=== PATIENT | female | born 2005 | race Caucasian/White ===

== ENCOUNTER 2023-01-18 17:26 | Emergency (ER) | payer OTHER, SELFPAY ==
[2023-01-18 17:30] VITALS: BP 105/56; PULSE 82; RESP 20; TEMP 36.9; O2SAT 97; BMI 29.1
--- NOTE | 2023-01-18 17:42 | ED.GENADUL1 ---
HPI - General Adult General Chief complaint: Upper Respiratory Infection Stated complaint: UPPER RESPIRATORY INFECTION Time Seen by Provider: 01/18/23 17:30 Source: patient Limitations: no limitations History of Present Illness HPI narrative: 17-year-old female presents for sore throat. She is worried about having strep. It started today. She's had a slight cough and has no concern for Covid. No fever or vomiting. It hurts more when she swallows. Related Data Home Medications Medication Instructions Recorded Confirmed cholecalciferol (vitamin D3) 1,250 50,000 unit PO QWEEK 01/18/23 01/18/23 mcg (50,000 unit) capsule escitalopram oxalate 10 mg tablet 10 mg PO DAILY 01/18/23 01/18/23 Allergies Allergy/AdvReac Type Severity Reaction Status Date / Time No Known Drug Allergies Allergy Verified 01/18/23 17:29 Review of Systems ROS Narrative A ten point review of systems is negative except as noted above. Exam Narrative Exam Narrative: Nurses note and vital signs reviewed and patient is not hypoxic. General: The patient appears well and in no apparent distress. Patient is resting comfortably on cart. Skin: Warm, dry, no pallor noted. There is no rash noted. Head: Normocephalic, atraumatic Eye: Normal conjunctiva, no drainage Ears, Nose, Mouth, and Throat: oral mucosa is moist. Nares patent. no pharyngeal erythema or exudate, no cervical adenopathy Cardiovascular: Regular Rate and Rhythm Respiratory: Patient is in no distress, no accessory muscle use, lungs are clear to auscultation, no wheezing, rales or rhonchi Back: non-tender GI: soft and nontender Musculoskeletal: The patient has no evidence of calf tenderness, no pitting edema, symmetrical pulses noted bilaterally Neurological: A&O, normal speech Psychiatric: Cooperative Constitutional Vital Signs, click to edit/add: Last Vital Signs Temp 98.5 F 01/18/23 17:30 Pulse 82 01/18/23 17:30 Resp 20 01/18/23 17:30 BP 105/56 01/18/23 17:30 Pulse Ox 97 01/18/23 17:30 O2 Del Method Room Air 01/18/23 17:30 Course Vital Signs Vital signs: Vital Signs Temperature 98.5 F 01/18/23 17:30 Pulse Rate 82 01/18/23 17:30 Respiratory Rate 20 10/05/23 17:30 Blood Pressure 105/56 01/18/23 17:30 Pulse Oximetry 97 01/18/23 17:30 Oxygen Delivery Method Room Air 01/18/23 17:30 Temperature 98.5 F 01/18/23 17:30 Pulse Rate 82 01/18/23 17:30 Respiratory Rate 20 01/18/23 17:30 Blood Pressure 105/56 01/18/23 17:30 Pulse Oximetry 97 01/18/23 17:30 Oxygen Delivery Method Room Air 01/18/23 17:30 Medical Decision Making MDM Narrative Medical decision making narrative: Strep test is negative. Antibiotic not indicated. Findings are discussed with the patient. Differential Diagnosis Differential Diagnosis: strep throat, peritonsillar abscess, viral pharyngitis Lab Data Lab results reviewed: Yes I reviewed the patient's lab results Labs: Lab Results 01/18/23 Range/Units 17:35 Streptococcus Screen Negative Discharge Plan Discharge Chief Complaint: Upper Respiratory Infection Clinical Impression: Acute viral pharyngitis Patient Disposition: Home, Self-Care Time of Disposition Decision: 17:59 Condition: Good Mode of Transportation: Private Vehicle Prescriptions / Home Meds: No Action escitalopram oxalate 10 mg tablet 10 mg PO DAILY cholecalciferol (vitamin D3) 1,250 mcg (50,000 unit) capsule 50,000 unit PO QWEEK Instructions: Pharyngitis (ED) Stand Alone Forms: Portal Instructions Referrals: Physician,Non-Staff, MD [Primary Care Provider] - 1 week
[2023-01-18 17:46] LABS: Internal Control Within Normal Limits; Strep A Antigen Screen Negative
== END 2023-01-18 18:03 | disposition home or self-care (01) ==
PROVIDERS: Emergency Provider Emergency Medicine
DX: J02.9 Acute pharyngitis, unspecified (principal)
CPT/HCPCS: 87070; 87880; 99283

== ENCOUNTER 2023-02-02 14:35 | Emergency (ER) | payer OTHER, SELFPAY ==
[2023-02-02 14:42] VITALS: BP 139/88; PULSE 83; RESP 18; TEMP 37.2; O2SAT 99; BMI 29.3
[2023-02-02 15:02] LABS: Bilirubin Urine SMALL (NEGATIVE); Blood Urine LARGE (NEGATIVE); Clarity Urine CLEAR (CLEAR); Color Urine YELLOW (YELLOW); Glucose Urine UA NEGATIVE (NEGATIVE); Ketones Urine NEGATIVE (NEGATIVE); Leukocyte Esterase Urine TRACE (NEGATIVE); Nitrite Urine NEGATIVE (NEGATIVE); Protein Urine TRACE mg/dL (NEG/TRACE); Specific Gravity Urine >=1.030 (1.005-1.025); Urobilinogen Urine 0.2 EU/dL (0.2-1.0); pH Urine 5.5 (5.0-9.0)
[2023-02-02 15:04] LABS: Urine Microscopic Indicated YES
--- NOTE | 2023-02-02 15:04 | ED_ITS ---
Documented by User: NEO De La O 02/02/23 16:15 HPI - General Adult General Chief complaint: Nausea/Vomiting/Diarrhea Stated complaint: ABDOMINAL PAIN/NAUSEA Time Seen by Provider: 02/02/23 14:54 Source: patient Mode of arrival: walk-in History of Present Illness HPI narrative: patient is a 17-year-old female presents to the Emergency Room with concerns of pelvic cramping, vaginal bleeding and nausea vomiting and diarrhea. Patient states last night she started her period with heavy bleeding and pelvic cramps. Patient noted pain was severe yesterday evening. Today she has had multiple bouts of diarrhea, with several episodes of vomiting. Patient denies eating any bad food. States abdominal pain is low in the pelvis. She denies any fever. Patient states her periods are irregular usually every 4-6 months. Her last menstrual cycle was December 27, patient states it is unusual that her period has returned so quickly. See essentially active with one partner but has no concerns of STD. She denies any vaginal discharge or dyspareunia. She denies dysuria. patient reports changing three tampons within one hour with onset of bleeding, had sees pads previously now has been wearing tampon for several hours without increased bleeding Location: Reports pelvis Radiation: Reports non-radiation Severity: moderate Related Data Home Medications Medication Instructions Recorded Confirmed cholecalciferol (vitamin D3) 1,250 50,000 unit PO QWEEK 01/18/23 02/02/23 mcg (50,000 unit) capsule escitalopram oxalate 10 mg tablet 20 mg PO DAILY 01/18/23 02/02/23 Previous Rx's Medication Instructions Recorded ibuprofen 600 mg tablet 600 mg PO TID PRN pain #30 tabs 02/02/23 ondansetron HCl 4 mg tablet 4 mg PO Q6H PRN nausea and 02/02/23 vomiting #12 tabs Allergies Allergy/AdvReac Type Severity Reaction Status Date / Time No Known Drug Allergies Allergy Verified 01/18/23 17:29 Review of Systems ROS Constitutional Denies: fever or chills Eyes Denies: change in vision Ears, nose, mouth, and throat Denies: throat pain, neck pain or throat swelling Cardiovascular Denies: chest pain, palpitations, edema or swelling of feet/ankles Respiratory Denies: shortness of breath, cough, wheezing or stridor Gastrointestinal Reports: abdominal pain, nausea and vomiting Genitourinary Reports: pelvic pain, painful menstruation, vaginal bleeding, irregular period and change in menstrual flow; Denies: painful urination, urinary frequency or vaginal discharge Musculoskeletal Denies: back pain Integumentary/Breast Denies: rash or itching Neurological Denies: headache or numbness in extremities Psychiatric Denies: anxiety Hematologic/Lymphatic Denies: easy bruising Allergic/Immunologic Denies: hives PFSH PFSH Social History Smoking status: Current every day smoker Exam Narrative Exam Narrative: Nurses notes and vital signs reviewed and patient is not hypoxic. General: The patient appears well and in no apparent distress. Patient is resting comfortably on cart.patient speaking easily at the bedside. Skin: Warm, dry, no pallor noted. Head: Normocephalic, atraumatic Neck: Supple, trachea mid-line, no tenderness, no lymphadenopathy Eye: Pupils are equal, round and reactive to light, EOMI Ears, Nose, Mouth, and Throat: TM are clear, normal light reflex, oral mucosa is moist, no posterior oropharynx erythema or hypertrophy, uvula is mid-line Cardiovascular: Regular Rate and Rhythm Respiratory: Patient is in no distress, no accessory muscle use, lungs are clear to auscultation, no wheezing, rales or rhonchi. Chest Wall: no tenderness Back: non-tender, no CVA tenderness Musculoskeletal: normal ROM, no tenderness, no swelling GI: Normal bowel sounds, no tenderness to palpation,minimal soreness suprapubic, no masses appreciated. No rebound, guarding, or rigidity noted.abdomen appears nonsurgical. Neurological: A&O x4 Psychiatric: Cooperative Constitutional Vital Signs, click to edit/add: Last Vital Signs Temp 99.0 F 02/02/23 14:42 Pulse 83 02/02/23 14:42 Resp 18 02/02/23 14:42 BP 139/88 02/02/23 14:42 Pulse Ox 99 02/02/23 14:42 O2 Del Method Room Air 02/02/23 14:42 Course Vital Signs Vital signs: Vital Signs Temperature 99.0 F 02/02/23 14:42 Pulse Rate 83 02/02/23 14:42 Respiratory Rate 18 02/02/23 14:42 Blood Pressure 139/88 02/02/23 14:42 Pulse Oximetry 99 02/02/23 14:42 Oxygen Delivery Method Room Air 02/02/23 14:42 Temperature 99.0 F 02/02/23 14:42 Pulse Rate 83 02/02/23 14:42 Respiratory Rate 18 02/02/23 14:42 Blood Pressure 139/88 02/02/23 14:42 Pulse Oximetry 99 02/02/23 14:42 Oxygen Delivery Method Room Air 02/02/23 14:42 Medical Decision Making MDM Narrative Medical decision making narrative: issue with irregular periods, possible menorrhagia. Discussed coexisting nausea vomiting and diarrhea that started abruptly last night into the morning. She'll be given Zofran IV fluid bolus. Toradol for pain. Patient agreeable to laboratory studies. We'll reassess pending laboratory studies. Her abdomen appears nonsurgical. patient reevaluated, noted significant improvement in symptoms, she denies any nausea or vomiting. she has not had diarrhea during her visit. We discussed vaginal bleeding and if she achieves three pads an hoour for three hours straight she'll return to the Emergency Room. Patient has a history of irregular periods that are painful with heavy flow. She is strongly encouraged to follow- up with [facility] to discuss possible treatment options. Recommend Motrin and Zofran in the near future. She'll return to the Emergency Room if symptoms worsen or new symptoms develop. Abdomen was reexamined and is nonsurgical. No tenderness on palpation The patient is to followup with primary care physician/ obgyn in next 2-3 days or to return to the emergency department should any of the signs or symptoms worsen or new symptoms develop. Patient had questions answered. The patient agrees with the following Diagnosis and Treatment plan and the patient will be discharged home. Lab Data Labs: Lab Results 02/02/23 02/02/23 Range/Units 14:49 15:15 WBC 8.4 (4.0-11.0) 10^3/uL RBC 3.96 L (4.20-5.40) 10^6/uL Hgb 12.7 (12.0-16.0) g/dL Hct 36.2 (36.0-48.0) % MCV 91.4 (81.0-99.0) fL MCH 32.1 (26.7-34.0) pg MCHC 35.1 (29.9-35.2) g/dL RDW 12.2 (11.0-15.0) % Plt Count 261 (150-450) 10^3/uL MPV 10.1 (9.5-13.5) fL Neut % (Auto) 68.6 (43.0-75.0) % Lymph % (Auto) 21.1 (20.5-60.0) % [place] % (Auto) 8.7 (1.7-12.0) % Eos % (Auto) 1.4 (0.9-7.0) % Baso % (Auto) 0.1 L (0.2-2.0) % Neut # (Auto) 5.7 (1.4-6.5) 10^3/uL Lymph # (Auto) 1.8 (1.2-3.8) 10^3/uL [place] # (Auto) 0.7 (0.3-0.8) 10^3/uL Eos # (Auto) 0.1 (0.0-0.7) 10^3/uL Baso # (Auto) 0.0 (0.0-0.1) 10^3/uL Abs Immat Gran (auto) 0.01 (0.00-0.03) 10^3/uL Imm/Tot Granulo (auto) 0.1 (0.0-0.5) % Sodium 138 (136-145) mmol/L Potassium 3.7 (3.5-5.1) mmol/L Chloride 104 (98-107) mmol/L Carbon Dioxide 26.4 (21.0-32.0) mmol/L Anion Gap 11.3 BUN 9.0 (6.4-19.3) mg/dL Creatinine 0.71 (0.55-1.02) mg/dL Est GFR ( Amer) >60 (>=60) Est GFR (Non-Af Amer) >60 (>=60) BUN/Creatinine Ratio 12.7 Glucose 88 (74-106) mg/dL Calcium 8.8 (8.5-10.1) mg/dL Total Bilirubin 0.5 (0.2-1.0) mg/dL AST 23 (15-37) U/L ALT 18 (14-59) U/L Alkaline Phosphatase 49 (46-116) U/L Total Protein 7.2 (6.4-8.2) g/dL Albumin 3.8 (3.4-5.0) g/dL Globulin 3.4 g/dL Albumin/Globulin Ratio 1.1 Lipase 25.0 (16.0-77.0) U/L Serum HCG, Qual Negative (NEGATIVE) Urine Color Yellow (YELLOW) Urine Clarity Clear (CLEAR) Urine pH 5.5 (5.0-9.0) Ur Specific [place] >=1.030 A (1.005-1.025) Urine Protein Trace (NEG/TRACE) mg/dL Urine Glucose (UA) Negative (NEGATIVE) mg/dL Urine Ketones Negative (NEGATIVE) mg/dL Urine Occult Blood Large A (NEGATIVE) Urine Nitrite Negative (NEGATIVE) Urine Bilirubin Small A (NEGATIVE) Urine Urobilinogen 0.2 (0.2-1.0) EU/dL Ur Leukocyte Esterase Trace A (NEGATIVE) Urine RBC 5-10 A (0-2) #/HPF Urine WBC 0-2 A (NONE SEEN) #/HPF Ur Squamous Epith Cells Many A (NONE/RARE) #/LPF Urine Crystals None seen (None Seen) #/HPF Urine Bacteria Small A (NONE SEEN) #/HPF Urine Casts None seen (NONE SEEN) #/LPF Urine Mucus None seen (NONE SEEN) Ur Culture Indicated? Yes Will pend urine culture likely contaminated Discharge Plan Discharge Chief Complaint: Nausea/Vomiting/Diarrhea Clinical Impression: Menorrhagia with irregular cycle, Diarrhea, Nausea and vomiting, Abdominal pain Patient Disposition: Home, Self-Care Time of Disposition Decision: 16:12 Condition: Good Prescriptions / Home Meds: New ondansetron HCl 4 mg tablet 4 mg PO Q6H PRN (Reason: nausea and vomiting) Qty: 12 0RF ibuprofen 600 mg tablet 600 mg PO TID PRN (Reason: pain) Qty: 30 0RF No Action escitalopram oxalate 10 mg tablet 20 mg PO DAILY cholecalciferol (vitamin D3) 1,250 mcg (50,000 unit) capsule 50,000 unit PO QWEEK Hold Instructions: DC Instructions: Acute Nausea and Vomiting (DC), Menorrhagia (ED) Stand Alone Forms: Portal Instructions Referrals: Luis Felipe Sandhu DO [Physician] - As soon as possible Shaikh Benites MD [Physician] - As soon as possible Discharge Date/Time: 02/02/23 16:30 Documented by User: Nba Alvarez MD 02/02/23 18:42 HPI - General Adult General Chief complaint: Nausea/Vomiting/Diarrhea Stated complaint: ABDOMINAL PAIN/NAUSEA Time Seen by Provider: 02/02/23 14:54 Related Data Home Medications Medication Instructions Recorded Confirmed cholecalciferol (vitamin D3) 1,250 50,000 unit PO QWEEK 01/18/23 02/02/23 mcg (50,000 unit) capsule escitalopram oxalate 10 mg tablet 20 mg PO DAILY 01/18/23 02/02/23 Previous Rx's Medication Instructions Recorded ibuprofen 600 mg tablet 600 mg PO TID PRN pain #30 tabs 02/02/23 ondansetron HCl 4 mg tablet 4 mg PO Q6H PRN nausea and 02/02/23 vomiting #12 tabs Allergies Allergy/AdvReac Type Severity Reaction Status Date / Time No Known Drug Allergies Allergy Verified 01/18/23 17:29 PFSH PFSH Social History Smoking status: Current every day smoker Exam Constitutional Vital Signs, click to edit/add: Last Vital Signs Temp 99.0 F 02/02/23 14:42 Pulse 83 02/02/23 14:42 Resp 18 02/02/23 14:42 BP 139/88 02/02/23 14:42 Pulse Ox 99 02/02/23 14:42 O2 Del Method Room Air 02/02/23 14:42 Course Vital Signs Vital signs: Vital Signs Temperature 99.0 F 02/02/23 14:42 Pulse Rate 83 02/02/23 14:42 Respiratory Rate 18 02/02/23 14:42 Blood Pressure 139/88 02/02/23 14:42 Pulse Oximetry 99 02/02/23 14:42 Oxygen Delivery Method Room Air 02/02/23 14:42 Temperature 99.0 F 02/02/23 14:42 Pulse Rate 83 02/02/23 14:42 Respiratory Rate 18 02/02/23 14:42 Blood Pressure 139/88 02/02/23 14:42 Pulse Oximetry 99 02/02/23 14:42 Oxygen Delivery Method Room Air 02/02/23 14:42 Medical Decision Making MDM Narrative Medical decision making narrative: issue with irregular periods, possible menorrhagia. Discussed coexisting nausea vomiting and diarrhea that started abruptly last night into the morning. She'll be given Zofran IV fluid bolus. Toradol for pain. Patient agreeable to l aboratory studies. We'll reassess pending laboratory studies. Her abdomen appears nonsurgical. patient reevaluated, noted significant improvement in symptoms, she denies any nausea or vomiting. she has not had diarrhea during her visit. We discussed vaginal bleeding and if she achieves three pads an hour for three hours straight she'll return to the Emergency Room. Patient has a history of irregular periods that are painful with heavy flow. She is strongly encouraged to follow-up with [facility] [facility] to discuss possible treatment options. Recommend Motrin and Zofran in the near future. She'll return to the Emergency Room if symptoms worsen or new symptoms develop. Abdomen was reexamined and is nonsurgical. No tenderness on palpation The patient is to followup with primary care physician/ obgyn in next 2-3 days or to return to the emergency department should any of the signs or symptoms worsen or new symptoms develop. Patient had questions answered. The patient agrees with the following Diagnosis and Treatment plan and the patient will be discharged home. I, Dr Alvarez, have reviewed the above progress note and course of action in the ER; agree with the above. I have personally seen and evaluated this patient, gone over history and physical, and discussed disposition and treatment plan with the patient. Lab Data Labs: Lab Results 02/02/23 02/02/23 Range/Units 14:49 15:15 WBC 8.4 (4.0-11.0) 10^3/uL RBC 3.96 L (4.20-5.40) 10^6/uL Hgb 12.7 (12.0-16.0) g/dL Hct 36.2 (36.0-48.0) % MCV 91.4 (81.0-99.0) fL MCH 32.1 (26.7-34.0) pg MCHC 35.1 (29.9-35.2) g/dL RDW 12.2 (11.0-15.0) % Plt Count 261 (150-450) 10^3/uL MPV 10.1 (9.5-13.5) fL Neut % (Auto) 68.6 (43.0-75.0) % Lymph % (Auto) 21.1 (20.5-60.0) % [place] % (Auto) 8.7 (1.7-12.0) % Eos % (Auto) 1.4 (0.9-7.0) % Baso % (Auto) 0.1 L (0.2-2.0) % Neut # (Auto) 5.7 (1.4-6.5) 10^3/uL Lymph # (Auto) 1.8 (1.2-3.8) 10^3/uL [place] # (Auto) 0.7 (0.3-0.8) 10^3/uL Eos # (Auto) 0.1 (0.0-0.7) 10^3/uL Baso # (Auto) 0.0 (0.0-0.1) 10^3/uL Abs Immat Gran (auto) 0.01 (0.00-0.03) 10^3/uL Imm/Tot Granulo (auto) 0.1 (0.0-0.5) % Sodium 138 (136-145) mmol/L Potassium 3.7 (3.5-5.1) mmol/L Chloride 104 (98-107) mmol/L Carbon Dioxide 26.4 (21.0-32.0) mmol/L Anion Gap 11.3 BUN 9.0 (6.4-19.3) mg/dL Creatinine 0.71 (0.55-1.02) mg/dL Est GFR ( Amer) >60 (>=60) Est GFR (Non-Af Amer) >60 (>=60) BUN/Creatinine Ratio 12.7 Glucose 88 (74-106) mg/dL Calcium 8.8 (8.5-10.1) mg/dL Total Bilirubin 0.5 (0.2-1.0) mg/dL AST 23 (15-37) U/L ALT 18 (14-59) U/L Alkaline Phosphatase 49 (46-116) U/L Total Protein 7.2 (6.4-8.2) g/dL Albumin 3.8 (3.4-5.0) g/dL Globulin 3.4 g/dL Albumin/Globulin Ratio 1.1 Lipase 25.0 (16.0-77.0) U/L Serum HCG, Qual Negative (NEGATIVE) Urine Color Yellow (YELLOW) Urine Clarity Clear (CLEAR) Urine pH 5.5 (5.0-9.0) Ur Specific [place] >=1.030 A (1.005-1.025) Urine Protein Trace (NEG/TRACE) mg/dL Urine Glucose (UA) Negative (NEGATIVE) mg/dL Urine Ketones Negative (NEGATIVE) mg/dL Urine Occult Blood Large A (NEGATIVE) Urine Nitrite Negative (NEGATIVE) Urine Bilirubin Small A (NEGATIVE) Urine Urobilinogen 0.2 (0.2-1.0) EU/dL Ur Leukocyte Esterase Trace A (NEGATIVE) Urine RBC 5-10 A (0-2) #/HPF Urine WBC 0-2 A (NONE SEEN) #/HPF Ur Squamous Epith Cells Many A (NONE/RARE) #/LPF Urine Crystals None seen (None Seen) #/HPF Urine Bacteria Small A (NONE SEEN) #/HPF Urine Casts None seen (NONE SEEN) #/LPF Urine Mucus None seen (NONE SEEN) Ur Culture Indicated? Yes Discharge Plan Discharge Chief Complaint: Nausea/Vomiting/Diarrhea Clinical Impression: Menorrhagia with irregular cycle, Diarrhea, Nausea and vomiting, Abdominal pain Patient Disposition: Home, Self-Care Time of Disposition Decision: 16:12 Condition: Good Prescriptions / Home Meds: New ondansetron HCl 4 mg tablet 4 mg PO Q6H PRN (Reason: nausea and vomiting) Qty: 12 0RF ibuprofen 600 mg tablet 600 mg PO TID PRN (Reason: pain) Qty: 30 0RF No Action escitalopram oxalate 10 mg tablet 20 mg PO DAILY cholecalciferol (vitamin D3) 1,250 mcg (50,000 unit) capsule 50,000 unit PO QWEEK Hold Instructions: DC Instructions: Acute Nausea and Vomiting (DC), Menorrhagia (ED) Stand Alone Forms: Portal Instructions Referrals: Luis Felipe Sandhu DO [Physician] - As soon as possible Shaikh Benites MD [Physician] - As soon as possible Discharge Date/Time: 02/02/23 16:30
[2023-02-02 15:15] LABS: WBC Urine 0-2 #/HPF (NONE SEEN)
[2023-02-02 15:16] LABS: Bacteria Urine SMALL #/HPF (NONE SEEN); Cast Seen? NONE SEEN #/LPF (NONE SEEN); Crystals Seen? None Seen #/HPF (None Seen); Mucus Urine NONE SEEN (NONE SEEN); Squamous Epithelial Cell Urine MANY #/LPF (NONE/RARE); Urine Culture Indicated YES
[2023-02-02] MEDS: 0.9 % SODIUM CHLORIDE 1,000 ML 999 ML IV (15:17)
[2023-02-02] MEDS: KETOROLAC TROMETHAMINE 30 MG/ML VIAL IVP (15:17)
[2023-02-02] MEDS: ONDANSETRON PF 4 MG/2 ML VIAL IV (15:17)
[2023-02-02 15:20] LABS: Basophils Percent Auto 0.1 % (0.2-2.0); Eosinophils Absolute Auto 0.1 10^3/uL (0.0-0.7); Eosinophils Percent Auto 1.4 % (0.9-7.0); Hematocrit 36.2 % (36.0-48.0); Hemoglobin 12.7 g/dL (12.0-16.0); Immature Granulocytes Abs Auto 0.01 10^3/uL (0.00-0.03); Immature Granulocytes Pct Auto 0.1 % (0.0-0.5); Lymphocytes Absolute Auto 1.8 10^3/uL (1.2-3.8); Lymphocytes Percent Auto 21.1 % (20.5-60.0); Mean Corpuscular HGB Conc 35.1 g/dL (29.9-35.2); Mean Corpuscular Hemoglobin 32.1 pg (26.7-34.0); Mean Corpuscular Volume 91.4 fL (81.0-99.0); Mean Platelet Volume 10.1 fL (9.5-13.5); Monocytes Absolute Auto 0.7 10^3/uL (0.3-0.8); Monocytes Percent Auto 8.7 % (1.7-12.0); Neutrophils Absolute Auto 5.7 10^3/uL (1.4-6.5); Neutrophils Percent Auto 68.6 % (43.0-75.0); Platelet Count 261 10^3/uL (150-450); Red Blood Count 3.96 10^6/uL (4.20-5.40); Red Cell Distribution Width 12.2 % (11.0-15.0); White Blood Count 8.4 10^3/uL (4.0-11.0)
[2023-02-02 15:35] LABS: HCG Qualitative NEGATIVE (NEGATIVE)
[2023-02-02 15:39] LABS: Alanine Aminotransferase 18 U/L (14-59); Albumin Globulin Ratio 1.1; Albumin Level 3.8 g/dL (3.4-5.0); Alkaline Phosphatase 49 U/L (46-116); Anion Gap 11.3; Aspartate Amino Transferase 23 U/L (15-37); BUN Creatinine Ratio 12.7; Bilirubin Total 0.5 mg/dL (0.2-1.0); Calcium 8.8 mg/dL (8.5-10.1); Carbon Dioxide 26.4 mmol/L (21.0-32.0); Chloride 104 mmol/L (98-107); Estimated GFR (African America >60 (>=60); Estimated GFR (Non-African Ame >60 (>=60); Globulin 3.4 g/dL; Glucose 88 mg/dL (74-106); Potassium 3.7 mmol/L (3.5-5.1); Sodium 138 mmol/L (136-145); Total Protein 7.2 g/dL (6.4-8.2)
== END 2023-02-02 16:30 | disposition home or self-care (01) ==
PROVIDERS: Personal Emergency Response Attendant; Emergency Provider Emergency Medicine
DX: R10.9 Unspecified abdominal pain (principal); R11.2 Nausea with vomiting, unspecified; R19.7 Diarrhea, unspecified; N92.1 Excessive and frequent menstruation with irregular cycle; Z79.899 Other long term (current) drug therapy; F17.210 Nicotine dependence, cigarettes, uncomplicated
CPT/HCPCS: 36415; 80053; 81001; 83690; 84703; 85025; 87086; 96361; 96374; 96375; 99284

== ENCOUNTER 2023-06-01 11:40 | Emergency (ER) | payer OTHER, SELFPAY ==
[2023-06-01 11:51] VITALS: BP 122/82; PULSE 96; RESP 18; TEMP 36.7; O2SAT 100; BMI 30.5
--- OUTSIDE RECORDS SUMMARY | 2023-06-01 11:58 | XMS_ITS | CCD ---
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 with the remainder of the cultures pending. We did offer empiric treatment she declined I think this is reasonable as we will call her with any positive culture results. She is discharged home to follow-up educated on abstinence until the infection clears and continuing the antibiotics until completion. She is comfortable with this plan. I, Dr. Leahy had a mxgh-ea-ikto interaction with the patient. I personally performed a physical exam and medical decision making. I have verified the documentation by the student as accurately representing the information obtained. Shared decision making: Code status: Assessment/Plan Cervicitis (N72: Inflammatory disease of cervix uteri) Exposure to chlamydia (Z20.2: Contact with and (suspected) exposure to infections with a predominantly sexual mode of transmission) Orders: doxycycline, 100 mg = 1 tab(s), Oral, BID, X 10 day(s), # 20 tab(s), Refills(s) 0, Pharmacy: [id number], 168, cm, 10/03/22 14:11:00 EDT, Height/Length Dosing, 76, kg, 10/03/22 14:11:00 EDT, Weight Dosing Chlamydia/Gonococcus, ANUP U Beta Hcg Qual UA With Cult Reflex Urine Culture Disposition Plan Discharge Prescription List Prescriptions doxycycline monohydrate 100 mg oral tablet, 100 mg= 1 tab(s), Oral, BID Follow-up With When Contact Information Kevin Buckner In 3 days 10/06/[address], [address] [place] [address]- Business (1) Additional Instructions: LATISHA SEE In 3 days [address] [place] [address] Business (1) Additional Instructions: Problem List/Past Medical History Ongoing No qualifying data Historical No qualifying data Procedure/Surgical History none. Medications Inpatient No active inpatient medications Home Bromfed DM oral syrup, 5 mL, Oral, QID, PRN Allergies No Known Allergies Social History Alcohol - Denies Alcohol Use, 04/11/2022 1-2 times per week, 10/03/2022 Substance Abuse - Denies Substance Abuse, 04/11/2022 Tobacco - High Risk, 04/11/2022 Current vaping or e-cigarette use Smokeless Tobacco Use:., 10/03/2022 Lab Results UA Spec Desc: Clean Catch (10/03/22 14:58:00) UA Color: Yellow2 (10/03/22 14:58:00) UA Clarity: Clear2 (10/03/22 14:58:00) UA Spec Grav: 1.020 (10/03/22 14:58:00) UA pH: 7.0 (10/03/22 14:58:00) UA Protein: NEGATIVE1 (10/03/22 14:58:00) UA Glucose: NEGATIVE1 (10/03/22 14:58:00) UA Ketones: NEGATIVE1 (10/03/22 1 (more content not included)... Normal [facility] Comment on above: Result Comment: Elec tronically Signed By: Aicha Burris\.br\Date and Time Signed: 10/03/22 14:53 EDT\.br\Electronically Co-Signed By: Guillermo Leahy DO\.br\Date and Time Co-Signed: 10/03/22 15:45 EDT ED Patient Education Noteon 10-03-2022 ED Patient Education Note Normal [facility] ED Patient Summaryon 023 ED Patient Summary [place] [id number] Patient Discharge Instructions Person Information Name: LENY GALVEZ Age: 17 Years Arrival Date: 10/03/2022 14:06:21 Discharge Diagnosis: Cervicitis; Exposure to chlamydia Primary Care Physician: LATISHA SEE MD Provider Information Primary Provider: Guillermo Leahy DO Advanced Services Clerk:None The exam and treatment you received in the Emergency Department were for an urgent problem and are not intended as complete care. It is important that you follow up with a doctor, nurse practitioner, or physician?s assistant director of admissions for ongoing care. If your symptoms become worse or you do not improve as expected and you are unable to reach your usual health care provider, you should return to the Emergency Department. We are available 24 hours a day. LENY GALVEZ has been given the following list of patient education materials, prescriptions and follow-up instructions: Follow-up Instructions: With: Address: When: Kevin Dudley [address], [address], [facility] [place] [address] Business (1) In 3 days 10/06/2022 With: Address: When: LATISHA SEE [address] [place], [place] [id number] Business (1) In 3 days In the event that this physician does not participate in your insurance network, please consult with your insurance company to find a nearby participating provider. Patient Education Materials: A MESSAGE TO ALL PATIENTS REGARDING OPIOIDS PRESCRIPTION OPIOIDS: WHAT YOU NEED TO KNOW Prescription opioids can be used to help relieve lzmiftej-me-xqmtif pain and are often prescribed following a surgery or injury, or for certain health conditions. These medications can be an important part of the treatment but also come with serious risks. It is important to work with your healthcare provider to make sure you are getting the safest, most effective care. WHAT ARE THE RISKS AND SIDE EFFECTS OF OPIOID USE? Prescription opioids carry serious risks of addiction and overdose, especially with prolonged use. An opioid overdose, often marked by slowed breathing, can cause sudden . The use of prescription opioids can have a number of side effects as well, even when taken as directed: ? Tolerance?meaning you might need to take more of the medication for the same pain relief ? Physical dependence?meaning you have symptoms of withdrawal when a medication is stopped ? Increased sensitivity to pain ? Constipation ? Nausea, vomiting, and dry mouth ? Sleepiness and dizziness ? Confusion ? Depression ? Low levels of testosterone that can result in lower sex drive, energy, and strength ? Itching and sweating RISKS ARE GREATER WITH: ? History of drug misuse, substance use disorder, or overdose ? Mental health conditions (such as depression or anxiety) ? Sleep apnea ? Older age (65 years and older) ? Avoid alcohol while taking prescription opioids. Also, unless specifically advised by your health care provider, medications to avoid include: ? Benzodiazepines (such as Xanax or Valium) ? Muscle relaxants (such as Soma or Flexeril) ? Hypnotics (such as Ambien or Lunesta) ? Other prescription opioids KNOW YOUR OPTIONS Talk to your health care provider about ways to manage your pain that don?t involve prescription opioids. Some of these options may actually work better and have fewer risks and side effects. Options may include: ? Pain relievers such as acetaminophen, ibuprofen, and naproxen ? Some medication that are also used for depression or seizures ? Physical therapy and exercise ? Cognitive behavioral therapy, a psychological, goal-directed approach, in which patients learn how to modify physical, behavioral, and emotional triggers of pain and stress. IF YOU ARE PRESCRIBED OPIOIDS FOR PAIN: ? Never take opioids in greater amounts or more often than prescribed. ? Follow up with your primary health care provider. o Work together to create a plan on how to manage your pain. o Talk about ways to help manage your pain that don?t involve prescription opioids. o Talk about any and all concerns and side effects. ? Help prevent misuse and abuse o Never sell or share prescription opioids. o Never use another person?s prescription opioids. ? Store prescription opioids in a secure place and out of reach of others (this may include visitors, children, friends, and family). ? Safely dispose of unused prescription opioids: Find your community drug take-back program or your pharmacy mail-back program, or flush them down the toilet, following guidance from the Food and Drug Administration (www.fda.gov/Drugs/Re sourcesForYou). ? Visit www.cdc.gov/drugoverd ose to learn about the risks of opioids abuse and overdose. ? If you believe you may be struggling with addiction, tell your health primary care physician (more content not included)... Normal [facility] U BetaHcg Qualon 10-03-2022 HCG.beta subunit (U) [Moles/Vol] Negative Normal [facility] Comment on above: Performed By: #### 1 [id number], [id number], [id number], [id number] ####[facility] [address] [place] [address] UA With Cult Reflexon 2022 Bacteria LM Ql (Urine sed) 1+ /HPF Abnormal Trace [facility] Comment on above: Performed By: #### 1 [id number], [id number], 9921782, [id number] ####[facility] [address] [place] [address] Crystals LM Ql (Urine sed) Present Normal [facility] Comment on above: Performed By: #### 1 [id number], [id number], 5717031, [id number] ####[facility] [address] [place] [address] Epithelial cells.squamous LM.HPF (Urine sed) [#/Area] /[HPF] Normal 0-2 [facility] Comment on above: Performed By: #### 1 [id number], [id number], 8522996, 10508926 ####[address] [address] [place].plasma/[place] .RBC (Bld) [Mass ratio] 0-3 Normal 0-3 [facility] Comment on above: Performed By: #### 1 [id number], 44628860, 8618416, 36614578 ####[address] [address] Mucus Ql (Urine sed) 3+ Normal [facility] Comment on above: Performed By: #### 1 [id number], 30504115, 0489774, 37103624 ####[place] [id number] WBC LM.HPF (Urine sed) [#/Area] 6-15 Abnormal 0-5 [facility] Comment on above: Performed By: #### 1 [id number], 25075529, 5082806, 11556830 ####[address] [address] Bilirubin Ql (U) Negative Normal Negative [facility] Comment on above: Performed By: #### 1 [id number], 22848044, 0172843, 14095430 ####[facility] [address] [place] [address] Clarity (U) CLEAR Normal Clear [facility] Comment on above: Performed By: #### 1 [id number], 71521295, 5563232, [id number] ####[address] [address] Color (U) YELLOW Normal Yellow [facility] Comment on above: Performed By: #### 1 53987616, 21464125, 4955810, 75687482 ####[facility] [address] [place] [address] Glucose Test strip (U) [Mass/Vol] Negative Normal Negative [facility] Comment on above: Performed By: #### 1 [id number], 25694803, 6823567, 19032577 ####[address] [address] Hemoglobin Ql (U) Negative Normal Negative [facility] Comment on above: Performed By: #### 1 [id number], 48029885, 5901446, 30448958 ####[address] [address] Ketones (U) [Mass/Vol] Negative Normal Negative [facility] Comment on above: Performed By: #### 1 39569918, 39860893, 1369768, 75861214 ####[address] [address] Nitrite Ql (U) Negative Normal Negative [facility] Comment on above: Performed By: #### 1 [id number], 45200060, 9723484, 46908476 ####[address] [address] pH (U) 7.0 [pH] Invalid Interpretation Code 5.0-9.0 [facility] Comment on above: Performed By: #### 1 [id number], 52408283, 3055283, 85898623 ####[address] [address] Protein (U) [Mass/Vol] Negative Normal Negative [facility] Comment on above: Performed By: #### 1 [id number], 33643211, 1599733, 32414195 ####[address] [address] Specific gravity (U) [Rel density] 1.020 Invalid Interpretation Code 1.005-1.030 [facility] Comment on above: Performed By: #### 1 [id number], 56967794, 3312178, 64491877 ####[facility] [address] [place] [address] Type of Urine collection method Clean Catch Normal [facility] Comment on above: Performed By: #### 1 [id number], 11656694, 7410098, 30531415 ####[facility] [address] [place] [address] Urobilinogen Qn (U) 1.0 {Evens'U}/dL Normal 0.0-1.0 [facility] Comment on above: Performed By: #### 1 19505031, 85967030, 4707134, 20037682 ####[address] [address] WBC Auto Ql (U) TRACE Abnormal Negative [facility] Comment on above: Performed By: #### 1 [id number], 81420753, 5289923, 29995612 ####[place] [address] [place] [address] Coding Summary.on 07-28-2022 Coding Summary. CD:[id number] W w+PGhlYWQ+AT5JZYBhJ34 gbZGajA9lH1YLFXzDBpmu KIDRKDvDZgEszuOfMD7zs XNjZXJu IC8+OH5tHUYgFtrisLCmy 9F1mFQ5U76kwa0xKQdelM T3WKEwBuEtsgvax8folCt 6IDcuNmluOyBt HTExrY30VDO0qB08Qv51n QGjnSHnv5qkoFo2PxDmHO GpTQE4cCzmVNidj6HdITG nI75hpOMer5B0 QYEtgOxieQLnJlLqfGA2p Z7qIYyqflfbs5oablhwWv e9gl89xTZrh8S8bSD1G1H ouoQ0HJMniKUe WaaggKYJqN2qbcpxo2ykl jkpBqLeWGVeBXe9SJd4RM UutBgzOfAfEF53YHQ5ROG qooJoU5NaUOPb dCfuGtB9q1J9Zj6CJ5YYW swuT8WPLULZXAsirOH+PC 01nw52V6VeTpztOus5MMM tLAI1lZW7jZ7c FGAoVMhqz6B1wVN4E2Kob mHcdf3lz7npTPHgZIjaW3 1stGXxr9Y9TJIgzMX7FFE uxUfbUxXliU32 Oyc+MQPciUtdc5JuJyyvh 1eae5nvtEc1SlotXDKole FylLniQHP6n0AvYw2qCBQ kmVK6dWB9aB0a DuKqHmO2HUdcN161KtSvh HKcKjenL67rB8EqaEL+PH XyWog0FLMfyQeoBD9eE5T hZGRpbmctbGVm aSruTJ8eTCRbwtmdCAIwx Y8bNJWeT3n5OlRuAsS1DW vwS2IxRBZzonqmYr95wH4 zLxUiIeV6PGkr W6LhlxI5VFJnbCUfRNsmZ FV7S61fk7I7KKVlRTQnPZ Z6oWN0eP3wxVnptmmhcZA mdDsgdmVydGlj DRamNQatO381FAWvlKgrN kNvZGluZyBEYXRlOiAgMD QvMTQvMjAyMzwvdGQ+PHR sORJ9kMdlWBAe mLQhRNvqEn7mlXczfJjbE Z6jYCQymzzzUJKlwH5gFL FqmHLcqEygFS4uXNMkfdc uh662TaEzENQ9 UFVfrEYfV8KwqG9qIfGwE LOzVEDjO5VbmVCkRMkiF3 66DDixJvA6CJQurkIeY3B sLWFsaWduOiB0 v2H6Ie1Ta8MkmqkeX0Prq IToVoLpJslwIGf5N2BeFi wvdHI+CW35XSQiUK03DBg 2BPX1vAhhABex MUEyJ9TkzA6nEiLzMUHxJ GRkOyc+PHRhYmxlIHdpZH RoPScxMDAlJyBzdHlsZT0 sDp4mHEWaPOMx aPgjoZLtDzMbo9leQANpI GszMO3zhEifO4RxzXN0FO Ooy3a0Xd21T55cE2XwyTD +DOXdbHK6uKD6 nH4oMtDnAzF8XUosG665G mRvtQGsSzdda8jxj4gofH t0SbP0CBUwhwGoyVbxJYB 3h0XrYe09B05e IHdpZHRoPSIxNSUiIHZhb Qpizj0rlO2gNi2+PGNvbC P5nKX9pL9hBqSkKjH2DLg eH932ErNdlMNj Eifqn8hfg8vvoMm9NmCrW RSvheTeiYsbEPX9j0VzAh 54G8MkuDhbl8XdGlv8sr4 3cTWku7Z4eIN7 X4JdWTUwxlqhmRHkmMklQ H8pXIJpubrzNIXkoS7zLO SpG0c7LsEuBkV9SIpfP7G xuzY6XJFjmFUq MRBxyUBTgI1glkgen9zaf najOlQsMCFtCOe7SVl6RT WvcRnmBtOgGGO1NzP9KGR 7oVYbkI9ttBrg aconlR1bXin+CUP5dGAla ZUBCW8vLgotgHS+PHRkIH A7nYtyDFwiYGEtrE7bDRK eX2c4WbPaGfS5 ICnaA2CpqqI2ZVFfzHUmL PDezAMHcA0sdsidf0pxjp woBcKcAHSvVUn8IJq5WTS saWduOiBsZWZ0 DrX7BSU5wNUbtL8rlGess lzkhW6fDsy+QmlydGggRG X5QNd5P5RqUmf4XJDtaDq yAW7llKYfHXyv Dx6qbTqugYkoPV6rURUjo wybf637YjIig2ulNYOkuN WlOEuyKJO9G79nj6S7NAB tTJXfCIS6bBC5 tK5jbCvvbyqakVMovEluw nTopIlqUKeyFJcgN663NP ThlKrgYpDvHXn5J5QyWhu 8SZUvqJpkXD5u yDJaOUokEb9uhGmydClfA L3jGXXmifzrh266HcIsb9 hyFJMtqXAlTDchYQN9B89 uy4H5BHFmXSCg WRJ4aCR1zJ2xkRufiztbb GVmdDsgdmVydGljYWwtYW cpJ759PHJewLenPtYktPa 0A1FvXsy1JZQo vUxjEU0jkAMeASqyWp6sx KegbLxwGQ2vHQRgnubvm2 61SjJwe6vkBNLzoFVwESn qQSM4V83ec8D7 LWDmGXOoKBY6hHE8zM6ku GlnbjogbGVmdDsgdmVydG xnDCnkVHtdR925GMUdyPi nPlBhdGllbnQg TZwwPPj1G1HxXsageYE+P X53DTNcOR52hLGzgDVxr9 cbnPq3MjKwIADxYCM7iJz fRRdmi3KlWIXc S25dkHYuo8I0KLRxbQguv QNqEbKudMU5uV6uRMxqgr php2ozyvrpCyuem8kxjv7 2qK52J36fOUsl ZHRoPSIzMCUiIHZhbGlnb b6nsS9uVn4+GYKhcAO7yI D7iI4bIQNjOdZ6FAzsB28 9InRvcCIvPjxj o3hbu0yvcKa1JcI3EJCed qUmgBoeRWL2r0PfUj08B4 9sIHdpZHRoPSIyMCUiIHZ kwPoqvd4oxC7l Ii8+EUCnzWI3pAG3gF1dD uHkBfL2VAwfG200AqUiyH XxOdzpS52qO9WmnRB+PHR gVmv6QHIlvAuw GY0prNPxWEikXf4xIZC8Z iNdAuJsYMgoA9QcPNFuxc ffesxziQG5PHSgZENkeG3 5Hx3xjAonZHGy kQSItP3weteot3jtsfrjC mMwKOVrTBl9KUg3BIWxkN ouGpKbOKV6YyA2VCO7hEU dfB6atHogkrwa lL7aG7XsAEUzzatsDm24v E7rTcEmTyY6WIqzUqb+V0 hZY88SSYXDRWvDWPCRNL6 5RT21wATsw8U8 yEJ0O3BfSEUwirjoaqhox KZ5OAAqAIJrdD31wQFuTK gkBp0rx7I0f024JSKfVAU cgM76Lu1ynCfo RKYjdIKNuI3czcdqe1lim iaiXnGdSEDwWKm1KXw7IU GfjYpkSvEgQTI4JvY1LLW 5qDHurA9mfFwg fxjrlD5qKeo+MDIvMjYvM jAwNDwvdGQ+BVHvULI0uF otQZivNBUtcZ1dQLWiO7a 4JtCcOaV6YFbx I6LtPFSuvsjhUm42cU1pF sSuWwW3PJqcI2CgxkV9CL LqrHNhOBifJQB0K19xm5A 3NDWbTLZdQRH2 lUN2aH0nqHyrhnxexJCtt DsgdmVydGljYWwtYWxpZ2 11OLOzfNbhQwF4ACfrZPC dNP62JR93xBVx n1Y0aUI2K1WnPHTkopeix qffqWM7DIYdSTTfmZ55lL ZwUUcuUw2ff5O3r550MXG uXRMruA33Ez4r jEzyKSDhxYKTzB0yxllpc 8ctbpshAeIfXZZpYMt4OC f1APZcxNobGaAbHSX8TbT 6FAT2mUKlxD3z nAbswvurwX3wCty+RmVtY AwkNU49QX00bPPdy3T9mS J6L1TjZMDgmbbjxkgxqQT 2OUPwYOBswS26 kFOjHYjwLw4lr6I8x817O DKuANBfoE12Vg2alYbqGN JhtZKBjG2mxswwj9jvlxf gIzAwMDAwMDt0 WWw8OHFluXeiBdOkRQS5B eD7AQZ3wSWffY2yvNpcym qzaR8cInj+F9Q3lTN0lDY udDwvdGQ+PC90 jk95B7KsOeahUzo2CSExP CP1iFV1xL6bBURlAPnzv8 C7nZH2F7OfqxBylk3oa5s hYKQoLTvdG70o vBJic4S3NFFrbIM5AVVfl KfwCgGkzR78Ehk+PGNvbG dqg6MkHipxy1ftw4ictFc 9IjMwJSIgdmFs vAzjABK1d8MyGj46V35hP HdpZHRoPSIzMCUiIHZhbG tepv5mxE2wBf7+PGNvbCB 1hQP3mJ3jLrKq EvS8WWjxZ103MyBtqJGuJ qnjv0pbo3pfpCq5XtBiCW CeyqTcyOapICV0n7YvNb7 9R9QmcQcoh9Bi Szs6gp12dDUyf8E3gPX4G 3BhZGRpbmctbGVmdDogMC 7pFGSohkrmEHQjjL1cDHF sI4g2RfGoCrE2 IZvkA0RbqwC0HFKwfQUqZ SPhjBYYgC9ssajhi9bqin cvXdTeCMWbMZj3OYb4TBC saWduOiBsZWZ0 GqS7PNP8gCZbgP8xmQgth loxjO6jEuw+CHk3g8dzrQ GsUE2hoMB4JM25ZQ38eKK fq1N2aLT2I5Ik PVFjocldbbvpwCU4OWGiR GLboF99Rq5cgTwzXn1dAF BlHPX9LSYcjJAhU9GoaH7 yOiAjMDAwMDAw D0BnzTDjBRljT643OIuyH wQ3PANdkqArU7UbVXZslT wmQgT9l4R0Rm7VMX19IV0 4NA59pDAuk2I1 rCW1A0EaMHOjqarcrzmug ZP9IOWhUJMifF97Gb5ayL jnYr3rIQNnJAW4MGSewED wV5EqzF3tJhCw OAIiUJQlE3BdqXMsUVoeK 743TMbbBqJ3SCJmclQuG5 TlONHhcAxyMrQ1h8I2Id3 EFf03LC42BB61 dPPhg1I9tLG9T5BiMMOjm byxmdartLS7PVJgTBThuI 55Ox5qnEwpXd4yVSQqLCS 5OZCbaFNxM6Cx tQ7mSbPfHJXhQXXwB8Qdg WDiBVrgF191MFecDbD5ZV QkybIzD2IsCGYjfLzjCeW 7v6P9Ou9IZLzy boa6D8PdGiybdRT+PC90Y TTnWK28xBKdgHBwz4gppS f6IoRyQWLpZGM3fUmiQFx pk2YuMLTzT59t jATsa2G9 (more content not included)... Normal [facility] Coding Summary.on 07-27-2022 Coding Summary. CD:[id number] W w+PGhlYWQ+AK8HKXNkC42 lgHMbcM5uE8DBOUkIGoge SIPVREuSEtAfnrVjSN2vy XNjZXJu IC8+WA6gMQYcElgdqMCmr 3M0tSN4K77ofs9wLNgwhT P1OPHiUeMdkiywh5nzoSx 6IDcuNmluOyBt OWWblE85CPS2iK08Qh46y VPexLZik2imgSb8DqJjTW WsFLJ2bNngQXxsg0JjBLA zW34paAIow4Z6 TXDwoCkajPKlMlPzaYJ7c Z0nUWjmdmopd0zghjqgUc q8wa62dVSpb3P8lPR3D6Z rrhK1VRWjuEYe McxalOGUxI3memixn9fsr mzkJaToPOFdNFe1NEl4WA PdvLlqRaIrXZ87WXC4ONQ kgzJdT5DrFGAq vNzwXqT5j7J5Bf4BF8PTA hllA2HEUXUTKBnbkOV+PC 66tz15Q1ZyZqhgOkw1AKY wVFR3gEF2qW2f VEJvIKgyf5G3xJU0C2Idy oWffo5yp7xhUQXlQCkvI3 5mfJBls4N4UMUgfVV9SKY xwTpiPcOltH47 Oyc+DQYoiWvio4EcUomtr 2gme1kzeLb8XunuEVZmfw HxnFbtGVA9y7ViRo8jMWP ilBW5tXP6wH9w KiLgSqI3MWmrJ625JoScq OYyQnsfC05cT8ThyRU+PH PsLrm0NSDtgBzjTF8mM3Z hZGRpbmctbGVm nEviJV7iLEQinltbWJVxa D4zXQIoF8x6HlXiCpQ5TF xvF1ZyEVOymrmvTw46gF6 jQkZzEqN5KOog O0McsnQ5IQIowQKgVSkyE GZ2U80pr7H2QAEwCNWoAW S6pAY7qW8taHiidphctTQ mdDsgdmVydGlj GVeqLKxyK555HTOxhTxxD kNvZGluZyBEYXRlOiAgMD QvMTMvMjAyMzwvdGQ+PHR fWBK6wYbkWFCk dFYaONlyWk4lkAhrxGsgV E0rXYGhiwnoRTSffR7fVM IzbXXepQbgHI0cXGIjeuq lm343XkGuAVV2 AFYbhXKgB9GpbN7jYuViU GSxYCXbY2ZrtMHzGPkiT0 50AIplEaG9WTMhexEzR1K sLWFsaWduOiB0 q3W7Xr4De1RaaxizN9Paa SGaXrGxZwkzDLk5K0SpUr wvdHI+RH29HVEyLY40EVj 7NPD4rIgsRMdi JZZcR7BkoU7eDvKkPUNjS GRkOyc+PHRhYmxlIHdpZH RoPScxMDAlJyBzdHlsZT0 sUu2nYLWeRVQr wEuouPByPnAmj7fnWLIzQ BnzUB3gnJegN5DsvTV0NJ Ixn5h2Rs90G12aM9SxdDX +UXToxXN5rXQ4 dN1iPbGpPmM5GJhlC114P vDkeIPeBuxok1xmq2jxoV j3WpQ9YJFewqBjsTpxLRC 7i2YwBh02E46c IHdpZHRoPSIxNSUiIHZhb Aoeuv1wfY2gQk0+PGNvbC M0eMJ0vW8vWjXfMtZ9QLu xJ564BdHnbJIy Jnsdz1wmw1jdmKb2ZfZpN OJcdoTieKgiSPH3j6LxIr 12B3YveQppd9KzWum9xy8 4wLBay6H5gXL9 M1DoMAReqmzbrGSlzTzkY H5dJDJbtkqsROOqcC0yGB CmR8b4SjRnOmA4YGicE1T cxgQ2UHTofDIl FIShhTXPvL7sbibhj7hjm wvbRdKkADDiHKn7LAi6JE ThtVdqEpKbZBJ0VxO8KMQ 3hXPxaI2ojFql glicpK6sZub+KLP7nGNjt FIUEG5jOwiogAS+PHRkIH W9eNuyBYjsKCZisT8fTFZ mL5u8CaNvGmT8 TKetE4OikiC7RQXahCNgV HSabPWEjL0yczxbj8xlwc bjKePsXUNlCBp5MZq3EFJ saWduOiBsZWZ0 HkQ3SKO7fECujL1foGhbu rfqiJ3mEhr+QmlydGggRG W0IMv1A6EfHqn2ERRitVm eOE7azQDcVFrz Il8vmBgjtDtsDE9aEVOvt ocwq424VlMol1nrFIDfkT HgUDqoFYD5F92nj7K0VBS xFFCoSYB8wQW4 qO4nrJxqkkpynYNsrTyut gXvpTksKYhdPLegY729RH MskPyaEfCwNCw6K0OvCgj 6ICGhrFroEF8v fSAnSWhkCe8tmNfoeBakU A0dXTEqwwvnw840GlRjb1 gpQARqnAHkAFdnVRV1B28 cv6L8VKCbHGSl SDL4xHV8sX0boIhaiuabo GVmdDsgdmVydGljYWwtYW psC530HONotNydIwJizPe 0V3PxBdt8CMXk mMbuUZ2ozNGiOEziRl1df FhusCujDF5wFOGoakzgx8 43KbEpu8xpZHCjrPCzDLp rCYI1H32ah6I2 LZFsGLBkVQD0eOE5eS2qu GlnbjogbGVmdDsgdmVydG zcONfbVBilY087BMUnzKg nPlBhdGllbnQg FFqbCPw0E7RoWiwywPP+P G03YNFjFC60zGYspAZmj8 tzlZp2RkLuTBTxCQT4tBf lEVfcd8ZtGKHg Z30xnKQgr7W4IBNjtEpow AMhHkSueAT7rI6gIGgilq nuk1rbmiiyAptko6tphm7 9mJ69D94wTWfp ZHRoPSIzMCUiIHZhbGlnb b4dkY9cZv6+PGZtjWG1zE Z5lL9nVASdAeQ3OTnqN96 9InRvcCIvPjxj c4ezz9norRb0XgT5IRJev gUopTsfRKN2n7VaGt74J6 9sIHdpZHRoPSIyMCUiIHZ vgWzmrn5lbS8z Ii8+MZVnmMY5fPQ1eU8jJ wByHwX1QKbfW884HfFwpQ KjEjqyE47hR5KilUN+PHR zKsb3JJTqhYzq GV4iaQJiIAdhYf1qPYF2E zMrQrRlSQjxI6XqRQGala qyzvzvmBQ4NQIxXJDilW2 4Le6rlWkpGRDh gXSZrL1vvckjk7ctssryA iEgDXAfLMn1YZj2XBJccN ynDzDqCVQ3YyC4HSE6kFL pzX2jeZicbsuj vN1gU5QiMEQnhxfhZy08f J9kVzUnPpI9HRuqHsz+V0 cVL81TVWMGSUlREDVVGR7 2SP78iVBfy4T9 vWU6E3ShYFPekxzogzbzx BC4LQEcHVEdmN46uKJwBE kbNx0dh1W9w551MACtZPC bwY17Ez0ijKtf PHVccRMDvT8ndhayq4vsn anvXbVqPSNgCNs0CDx5ZI HzeLsaFuCpDYN5LyZ6OOY 5gGRiaD1bbCmp dczroS8mGlq+MDIvMjYvM jAwNDwvdGQ+XRIyKUV0pZ byKVhiPFDcoZ4lVXEmN8s 6UhKnGiZ3TPzk U6TbKELjsyxdAv11mI9nK qAfCpW1GZtmC6ZkybR3RN XkrVUkUTqaBHV0B18bc8E 8WKLrMJXzFOS2 eJP7uC1puUewxfaffPVko DsgdmVydGljYWwtYWxpZ2 44MLLtjWyyDvT0XQywTJW iWF17CB68yOUi q7U7rKM1B9IcCBLyfvayg xbcrSH7KGMxRGGadY45mR EoESsfJs2jm7D6o912PVQ sRPCgiU33Mj3t rZdoNASzyCDBlF4ohpjlz 5xupxleCjWoMNFzSZp0OR l2PSWndYqcPhUsGBD5ArA 8TYW2cHXhxU9r iOxhvhnllA1tElb+RmVtY BbgCQ47TX33iJOqn7G2wZ D4K7KkCGDgxekjdyhrnXT 9JZKqBVAquK64 eELrJWddVt8lq0S6c510U EHhEOQdpT75Xh6niNmoUB LbyAQKeU4wlouhp1ktptv gIzAwMDAwMDt0 FHe3NETdjRrvKuWvKMA1O uY6ZOS5eSZcaJ6khZcbdi oneU3vFoj+VUBuXEUlw4T ks9SyTA83JY65 A6UqCzuuuSIndLG+PHRhY mxlIHdpZHRoPScxMDAlJy BsrGftPG4tKt7yWSYjBLE vbGxhcHNlOiBj n4hxHXNdDMklPE3xmDfxB 9XugQV9MPSjh0y0Kv49Q1 3aK5NaiKY+HAYerYX0jTV 0bA2mPcLvIzW6 CBxgB963CgDuuHReKuamq 9fbo4rxiXw4RvXvZASrdg XegNigHSB6p6YfAo45D53 sIHdpZHRoPSIy IDBrRHEwyVxddc3kzC4zM i8+GDCqsWB5iVG0dJ2wZn HxTrT2AEsgP508LuJzyLH uRyzwB45rI1Fq dXA+WBKtSnc7IHTbtCfwM T8tkXRmIZcwFx2eTQJ9Hx SnNlUrVQhvG0HgHHXjtoj akrdyfGD2DVXf ITIswZ48As0npEqsFp8qE PRdGML1HYJzfEPsY5JfcJ 7qElLsZPIgMNFeN4XnmUK cOCvdQ623TQkw XyH1EVSfveYvY3GoCKBdr CshWnS1t9W6Ol5YkXrppB IxTH5yMyHhJNh0D1XqDpr 6OXChhUprIF0n uSWiVJysIe0muSetwHqnL P1pXCWhbuojp018GgAku7 wqVOCysWIxETbvSXS5G70 jd5Y3XJMkXXBu GRN7eCZ3sY9mdKitkgncl GVmdDsgdmVydGljYWwtYW cqV791MBYjhLpwXzTXKzm 6I7MfJmh7EOQy vBapTZ3veDQkKKmsMl1gq WvqrHsjKG9qHFYmabvds2 86GwOqn8adBZHhpKOsQCi nJEW0Z54nh4P2 FTUjMCBoHYQ9zXO7hV4id GlnbjogbGVmdDsgdmVydG owJUtpONjlT436GYKtiNo vXk9STkt1S0Qg Akq6KKFdbJxyTS2moPVjO ZgbHh9muItkrBovUT2eSN Skfqafc824MpDdr1xzPZS wcHQgVGltZXM7 Q99eb4G5HHTwZAWoZET7p LY2xO7lxGbolgkwrWHsqP ffsxQfgYtkPPfwKBhpC24 6IHRvcDsnPlBh eWVyOjwvdGQ+DZ97pt01W 7SgTcljQle2WJPbSQO1rI H0yY8nLDZoWXnql8F1kKQ 1K6DinpEjxr5x w1hoLJHc (more content not included)... Normal [facility] Chlamydia/Gonococcus, NAAon 07-22-2022 C. trachomatis rRNA ANUP+probe Ql (Unsp spec) Negative Invalid Interpretation Code Negative [facility] Comment on above: Performed By: #### 1 [id number] ####[facility] [address] [place] [address] N. gonorrhoeae rRNA ANUP+probe Ql (Unsp spec) Negative Invalid Interpretation Code Negative [facility] Comment on above: Result Comment: Perf ormed at: [facility] [address] [place] [id number] MD Griffin Loyd Performed By: #### 1 [id number] ####[facility] [address] [place] [address] DHEASon 07-21-2022 DHEA-S [Mass/Vol] 246.0 microgram/dL Invalid Interpretation Code 110.0-433.2 [facility] Comment on above: Result Comment: Perf ormed at: [address] [id number] PhD Arnie Polanco Performed By: #### 7 [id number], [id number], [id number], [id number], [id number], [id number] ####[address] [address] FSH and LHon 07-21-2022 Follitropin Qn 2.9 m[IU]/mL Invalid Interpretation Code [facility] Comment on above: Result Comment: Adul t Female: Follicular phase 3.5 - 12.5 Ovulation phase 4.7 - 21.5 Luteal phase 1.7 - 7.7 Postmenopausal 25.8 - 134.8 Performed at: [address] [id number] PhD Arnie Polanco Performed By: #### 7 [id number], [id number], [id number], [id number], [id number], [id number] ####[facility] [address] [place] [address] Lutropin Qn 9.8 m[IU]/mL Invalid Interpretation Code [facility] Comment on above: Result Comment: Adul t Female: Follicular phase 2.4 - 12.6 Ovulation phase 14.0 - 95.6 Luteal phase 1.0 - 11.4 Postmenopausal 7.7 - 58.5 Performed By: #### 7 [id number], [id number], 75913855, 7167410, 5339943, 5920810, 9067718, 050573216, 8972875, 07556864 ####[facility] [address] [place] [address] Insulin Lvlon 07-21-2022 Insulin Qn 21.1 u[IU]/mL Invalid Interpretation Code 2.6-24.9 [facility] Comment on above: Result Comment: Perf ormed at: [employer] [id number] PhD Arnie Polanco Performed By: #### 7 [id number], 79525607, 89971728, 1246552, 6924245, 3491237, 8116429, 761996010, 6945401, 91125401 ####[facility] [address] [place] [address] Testost Totalon 07-21-2022 Testosterone [Mass/Vol] 22 ng/dL Invalid Interpretation Code [facility] Comment on above: Result Comment: Perf ormed at: [employer] [id number] PhD Arnie Polanco Performed By: #### 7 [id number], [id number], 36128409, 4892604, 0890232, 2898292, 8360230, 151851017, 1712268, 49628648 ####[facility] [address] [place] [address] CHEMISTRYOrdered By: SYSTEM SYSTEM on 07-20-2022 25-hydroxyvitamin D3 [Mass/Vol] 23.8 ng/mL Low 30.0 - 100.0 ng/mL [facility] Cholesterol [Mass/Vol] 140 mg/dL Normal 120 - 200 mg/dL [facility] Cholesterol in HDL [Mass/Vol] 56 mg/dL Invalid Interpretation Code [facility] Cholesterol in LDL [Mass/Vol] 82 mg/dL Normal <=129mg/dL [facility] Cholesterol in VLDL [Mass/Vol] 16 mg/dL Normal 7 - 40 mg/dL [facility] Glucose post fast [Mass/Vol] 92 mg/dL Normal 55 - 99 mg/dL [facility] Prolactin [Mass/Vol] 7.40 ng/mL Normal 3.34 - 26.72 ng/mL [facility] Triglyceride [Mass/Vol] 80 mg/dL Normal <=149mg/dL [facility] TSH Qn 1.22 m[IU]/L Normal 0.34 - 5.60 mcIU/mL [facility] CHEMISTRYOrdered By: Linda Zamorano se on 07-20-2022 HbA1c (Bld) [Mass fraction] 4.3 % Normal <=5.9% [facility] Glu Fastingon 07-20-2022 Glucose [Mass/Vol] 92 mg/dL Normal 55-99 [facility] Comment on above: Performed By: #### 7 [id number], [id number], 33988767, 5149987, 0843312, 8504779, 0574185, 460743761, 6177153, 11812428 ####[facility] [address] [place] [address] WgpZ0nsq 07-20-2022 HbA1c (Bld) [Mass fraction] 4.3 % Normal <=5.9 [facility] Comment on above: Performed By: #### 7 [id number], 49582673, 94929475, 3024632, 1135077, 3334641, 7242614, 034980001, 9649787, 28140016 ####[facility] [address] [place] [address] Lipid Panelon 07-20-2022 Cholesterol [Mass/Vol] 140 mg/dL Normal 120-200 [facility] Comment on above: Performed By: #### 7 [id number], 47063069, 69979099, 8027754, 5546882, 5899258, 8570482, 954773733, 5595874, 96203398 ####[facility] [address] [place] [address] Cholesterol in HDL [Mass/Vol] 56 mg/dL Invalid Interpretation Code [facility] Comment on above: Result Comment: HDL > or equal to 60 mg/dL: Low cardiovascular risk HDL < 40 mg/dL : High cardiovascular risk Performed By: #### 7 [id number], 57284636, 20381619, 1447180, 2639331, 0283880, 1732550, 633289696, 5818321, 99038613 ####[facility] [address] [place] [address] Cholesterol in LDL [Mass/Vol] 82 mg/dL Normal <=129 [facility] Comment on above: Performed By: #### 7 [id number], 49437088, 23678701, 3218898, 0587731, 2862125, 0947802, 779825585, 3155729, 27215634 ####[facility] [address] [place] [address] Cholesterol in VLDL [Mass/Vol] 16 mg/dL Normal 7-40 [facility] Comment on above: Performed By: #### 7 [id number], 75893686, 17566239, 1901680, 3702479, 7269419, 8290120, 212041350, 1616929, 17433967 ####[facility] [address] [place] [address] Triglyceride [Mass/Vol] 80 mg/dL Normal <=149 [facility] Comment on above: Performed By: #### 7 [id number], 29806447, 26643095, 9286182, 8945446, 1652192, 0243368, 539446747, 1895711, 85383481 ####[facility] [address] [place] [address] Physician Orderon 07-20-2022 Physician Order [id number]# 1.00CD:127 Normal [facility] Prolactinon 07-20-2022 Prolactin [Mass/Vol] 7.40 ng/mL Normal 3.34-26.72 [facility] Comment on above: Performed By: #### 7 [id number], 46424758, 92845560, 3911913, 9502880, 2924661, 0183643, 376564219, 7209507, 59525770 ####[facility] [address] [place] [address] TSHon 07-20-2022 TSH Qn 1.22 m[IU]/L Normal 0.34-5.60 [facility] Comment on above: Performed By: #### 7 [id number], 86429652, 36556464, 8860643, 7157963, 1917030, 2999965, 806123480, 9670951, 58009539 ####[facility] [address] [place] [address] Vitamin D 25 Hydroxyon 07-20 25-hydroxyvitamin D3 [Mass/Vol] 23.8 ng/mL Low 30.0-100.0 [facility] Comment on above: Result Comment: Vit culp D deficiency has been defined as a level of serum 25-OH vitamin D less than 20 ng/mL (1,2) by the [place] of Medicine and an Endocrine Society practice guideline. The Endocrine Society further defined vitamin D insufficiency as a level between 21 and 29 ng/mL (2). 1. IOM ([place] of Medicine). 2010. Dietary reference intakes for calcium and D. [place]: The National Academies Press. 2. Cem MF, Bernadine NC, Trudi PRICE, et al. Evaluation, treatment, and prevention of vitamin D deficiency: an Endocrine Society clinical practice guideline. JCEM. 2010; 96 (7):1911-30. Performed By: #### 7 [id number], 88158235, 46935542, 5472734, 9444674, 6362659, 3877769, 717500426, 6765776, 57259962 ####[facility] [address] [place] [address] Physician Orderon 07-19-2022 Physician Order [id number]#1 .00CD:127 Normal [facility] Physician Order [id number]#1 .00CD:127 Normal [facility] Cholesterol [Mass/volume] in Serum or PlasmaOrdered By: Dean Solis on 07-10-2022 Cholesterol [Mass/Vol] 134 mg/dL 140-200 [facility] Comment on above: Chol less than 200 m g/dl low riskChol 201-239 mg/dl borderline riskChol 240 mg/dl and greater high risk Cholesterol in LDL Calc [Mas s/Vol]Ordered By: Dean Solis on 07-10-2022 Cholesterol in LDL [Mass/Vol] 69 mg/dL 0-100 [facility] Comment on above: LDL ATP III CLASSIFI CATIONLDL less than 100 mg/dL OptimalLDL 100-129 mg/dL Near or above optimalLDL 130-159 mg/dL Borderline highLDL 160-189 mg/dL HighLDL greater than 189 mg/dL Very high Cholesterol in VLDL Calc [Ma ss/Vol]Ordered By: Dean Solis on 07-10-2022 Cholesterol in VLDL [Mass/Vol] 12 mg/dL [facility] ECG 12 lead ECGon 07-10-2022 ECG 12 lead ECG [facility] [place] [address] Electrocardiograph Report Signed Patient: Leny Galvez MR#: [id number] 33 : 2005 Acct:[id number] Age/Sex: 17 / F ADM Date: 07/09/22 Loc: Room: [address] [place] [address] Type: ADM IN Attending Dr: Rajesh Solis MD Ordering Provider: Dean Solis MD Date of Service: 07/10/22 ECG/ECG 12 lead ECG: anti psychotic treatment Copies to: Test Reason : Blood Pressure : / mmHG Vent. Rate : 057 BPM Atrial Rate : 057 BPM P-R Int : 122 ms QRS Dur : 074 ms QT Int : 436 ms P-R-T Axes : 021 063 058 degrees QTc Int : 424 ms Sinus bradycardia with sinus arrhythmia Otherwise normal ECG No previous ECGs available Confirmed by KRZYSZTOF TAVERA DO ([id number]) on 07/10/2022 6:47:31 PM Referred By: Electronically Signed By:KRZYSZTOF TAVERA DO Transcribed By: MUS Signed By Krzysztof Tavera DO 07/10 1847 Normal [facility] Lipid Panelon 07-10-2022 Cholesterol [Mass/Vol] 134 mg/dL Low 140-200 [facility] Comment on above: Result Comment: Chol less than 200 mg/dl low risk Chol 201-239 mg/dl borderline risk Chol 240 mg/dl and greater high risk Performed By: #### L IPID, TSH3 wRFLX, [id number] #### [facility] [address] [id number] [facility] Cholesterol in HDL [Mass/Vol] 53 mg/dL Normal 35-85 [facility] Comment on above: Result Comment: HDL CHOL ATP-III CLASSIFICATION Cardiovascular Risk HDL > or equal to 60 mg/dL LOW HDL < 40 mg/dL HIGH Performed By: #### L IPID, TSH3 wRFLX, [id number] #### [facility] [address] [place] [address] [facility] Cholesterol.total/Chol esterol in HDL [Mass ratio] 2.5 {ratio} Normal <5.0 [facility] Comment on above: Performed By: #### L IPID, TSH3 wRFLX, [id number] #### [facility] [address] [place] [address] [place] LDL Cholesterol,Calculated 69 mg/dL Normal 0-100 [facility] Comment on above: Result Comment: LDL ATP III CLASSIFICATION LDL less than 100 mg/dL Optimal LDL 100-129 mg/dL Near or above optimal LDL 130-159 mg/dL Borderline high LDL 160-189 mg/dL High LDL greater than 189 mg/dL Very high Performed By: #### L IPID, TSH3 wRFLX, [id number] #### [facility] [address] [place] [address] [place] Triglyceride w/Reflex 62 mg/dL Normal 0-149 [facility] Comment on above: Result Comment: TRIG ATP III CLASSIFICATION TRIG less than 150 mg/dL Normal TRIG 150-199 mg/dL Borderline high TRIG 200-500 mg/dL High TRIG greater than 500 mg/dL Very high Standard traceable to the Center for Disease Conrtrol and Prevention (CDC) test method. Performed By: #### L IPID, TSH3 wRFLX, [id number] #### [facility] [address] VLDL CHOLESTEROL 12 mg/dL Normal [facility] Comment on above: Performed By: #### L IPID, TSH3 wRFLX, [id number] #### [facility] [address] Serum or plasma high density lipoprotein (HDL) cholesterol measurementOrdered By: Dean Solis on 07-10-2022 Cholesterol in HDL [Mass/Vol] 53 mg/dL 35-85 [facility] Comment on above: HDL CHOL ATP-III CLA SSIFICATION Cardiovascular RiskHDL > or equal to 60 mg/dL LOWHDL < 40 mg/dL HIGH Serum or plasma total choles terol/high density lipoprotein (HDL) cholesterol mass ratOrdered By: Dean Solis on 07-10-2022 Cholesterol.total/Chol esterol in HDL [Mass ratio] 2.5 {ratio} <5.0 [facility] Thyroid Stim Hormone w/Rflxo n 07-10-2022 Thyroid Stim Hormone w/Rflx 3.34 u[iU]/mL Normal 0.45-5.33 [facility] Comment on above: Performed By: #### L IPID, TSH3 wRFLX, [id number] #### [facility] [address] Thyrotropin [Units/volume] i n Serum or PlasmaOrdered By: Dean Solis on 07-10-2022 TSH Qn 3.34 m[IU]/L 0.45-5.33 [facility] Triglyceride [Mass/volume] i n Serum or PlasmaOrdered By: Dean Solis on 07-10-2022 Triglyceride [Mass/Vol] 62 mg/dL 0-149 [facility] Comment on above: TRIG ATP III CLASSIF ICATIONTRIG less than 150 mg/dL NormalTRIG 150-199 mg/dL Borderline highTRIG 200-500 mg/dL High TRIG greater than 500 mg/dL Very highStandard traceable to the Center for Disease Conrtrol and Prevention (CDC) test method. Vitamin D 25 Hydroxy Totalon 07-10-2022 Vitamin D 25 Hydroxy Total 12.0 ng/mL Low 30-100 [facility] Comment on above: Result Comment: GOOD MIN D STATUS 25([place])VITAMIN D RANGE (ng/mL) Deficient <20 Insufficient 20 to <30 Sufficient 30 to 100 Reference: Bernadine Ramirez, Trudi PRICE, et al. Evaluation,treatment, and prevention of vitamin D deficiency; an Endocrine Society clinical practice guideline. JCEM. 2010; 96(7):191-. PERFORMED BY: [place] [address] PATHOLOGIST HEALTH INFORMATION TECHNOLOGIST ROBERT PRADHAN M.D. Performed By: #### L IPID, TSH3 wRFLX, [id number] #### [address] Vitamin D+Metabolites [Mass/ volume] in Serum or PlasmaOrdered By: Dean Solis on 07-10-2022 Vitamin D+Metabolites [Mass/Vol] 12.0 ng/mL 30-100 [facility] Comment on above: VITAMIN D STATUS 25( [place])VITAMIN D RANGE (ng/mL) Deficient <20 Insufficient 20 to <30Sufficient 30 to 100Reference: Bernadine Ramirez, Trudi PRICE, et al. Evaluation,treatment, and prevention of vitamin D deficiency; an Endocrine Society clinical practice guideline. JCEM. 2010; 96(7):1911-30. ACETAMINOPHENon 07-09-2022 Acetaminophen [Mass/Vol] ug/mL Critically low 10.0-30.0 [facility] Comment on above: Performed By: #### C MP, SALYC, ACET #### [facility] [address] [address] [address] Skylar Ramirez CBC AUTO DIFFon 07-09-2022 BASO # 0.1 103/ul Normal 0.0-0.1 [facility] Comment on above: Performed By: #### C BC #### [facility] [address] [place] [address] Dr. Skylar Ramirez Basophils/100 WBC (Bld) 0.6 % Normal 0.2-2.0 [facility] Comment on above: Performed By: #### C BC #### [facility] [address] [place] [address] Dr. Skylar Ramirez EO # 0.1 103/ul Normal 0.0-0.7 [facility] Comment on above: Performed By: #### C BC #### [facility] [address] [place] [address] Dr. Skylar Ramirze Eosinophils/100 WBC (Bld) 1.0 % Normal 0.9-7.0 [facility] Comment on above: Performed By: #### C BC #### [facility] [address] [place] [address] Dr. Skylar Ramirez Erythrocyte distribution width (RBC) [Ratio] 12.6 % Normal 11.0-15.0 [facility] Comment on above: Performed By: #### C BC #### [facility] [address] [place] [address] Dr. Skylar Ramirez Hematocrit (Bld) [Volume fraction] 39.7 % Normal 36.0-48.0 [facility] Comment on above: Performed By: #### C BC #### [facility] [address] [place] [address] Dr. Skylar Ramirez Hemoglobin (Bld) [Mass/Vol] 14.4 g/dL Normal 12.0-16.0 [facility] Comment on above: Performed By: #### C BC #### [facility] [address] [place] [address] Dr. Skylar Ramirez IG # 0.03 10e3/ul Normal 0.00-0.03 [facility] Comment on above: Performed By: #### C BC #### [facility] [address] [place] [address] Dr. Skylar Ramirez IG % 0.4 % Normal 0.0-0.5 [facility] Comment on above: Performed By: #### C BC #### [facility] [address] [place] [address] Dr. Skylar Ramirez LYMPH # 2.2 103/ul Normal 1.2-3.8 [facility] Comment on above: Performed By: #### C BC #### [facility] [address] [place] [address] Dr. Skylar Ramirez Lymphocytes/100 WBC (Bld) 27.4 % Normal 20.5-60.0 [facility] Comment on above: Performed By: #### C BC #### [facility] [address] [place] [address] Dr. Skylar Ramirez MANUAL DIFF REQ NO Normal [facility] Comment on above: Performed By: #### C BC #### [facility] [address] [place] [address] Dr. Skylar Ramirez MCH (RBC) [Entitic mass] 33.6 pg Normal 26.7-34.0 [facility] Comment on above: Performed By: #### C BC #### [facility] [address] [place] [address] Dr. Skylar Ramirez MCHC (RBC) [Mass/Vol] 36.3 g/dL Critically high 29.9-35.2 [facility] Comment on above: Performed By: #### C BC #### [facility] [address] [place] [address] Dr. Skylar Ramirez MCV (RBC) [Entitic vol] 92.5 fL Normal 81.0-99.0 [facility] Comment on above: Performed By: #### C BC #### [facility] [address] [place] [address] Dr. Skylar Ramirez MONO # 0.4 103/ul Normal 0.3-0.8 [facility] Comment on above: Performed By: #### C BC #### [facility] [address] [place] [address] Dr. Skylar Ramirez Monocytes/100 WBC (Bld) 5.5 % Normal 1.7-12.0 [facility] Comment on above: Performed By: #### C BC #### [facility] [address] [place] [address] Dr. Skylar Ramirez NEUT # 5.3 103/ul Normal 1.4-6.5 [facility] Comment on above: Performed By: #### C BC #### [facility] [address] [place] [address] Dr. Skylar Ramirez Neutrophils/100 WBC (Bld) 65.1 % Normal 43.0-75.0 [facility] Comment on above: Performed By: #### C BC #### [facility] [address] [place] [address] Dr. Skylar Ramirez Platelet mean volume (Bld) [Entitic vol] 9.8 fL Normal 9.5-13.5 [facility] Comment on above: Performed By: #### C BC #### [facility] [address] [place] [address] Dr. Skylar Ramirez PLT 316 103/ul Normal 150-450 [facility] Comment on above: Performed By: #### C BC #### [facility] [address] [place] [address] Dr. Skylar Ramirez RBC 4.29 106/ul Normal 4.20-5.40 [facility] Comment on above: Performed By: #### C BC #### [facility] [address] [place] [address] Dr. Skylar Ramirez WBC 8.1 103/ul Normal 4.0-11.0 [facility] Comment on above: Performed By: #### C BC #### [facility] [address] [place] [address] Dr. Skylar Ramirez DRUG SCREEN RAPID (URINE)on 07-09-2022 AMP Negative Normal NEGATIVE [facility] Comment on above: Performed By: #### E TH #### [facility] [address] [place] [address] Dr. Skylar Ramirez BAR Negative Normal NEGATIVE [facility] Comment on above: Performed By: #### E TH #### [facility] [address] [place] [address] Dr. Skylar Ramirez BUP Negative Normal NEGATIVE [facility] Comment on above: Performed By: #### E TH #### [facility] [address] [place] [address] Dr. Skylar Ramirez BZO Negative Normal NEGATIVE [facility] Comment on above: Performed By: #### E TH #### [facility] [address] [place] [address] Dr. Skylar Ramirez RICHIE Negative Normal NEGATIVE [facility] Comment on above: Performed By: #### E TH #### [facility] [address] [place] [address] Dr. Skylar Ramirez CUT-OFFS SEE BELOW Normal [facility] Comment on above: Result Comment: AMP (Amphetamine): 500ng/mL, BAR (Barbituates): 200 ng/mL, BZO (Benzodiazepines): 150 ng/mL, BUP (Buprenorphine): 10 ng/mL, RICHIE (Cocaine): 150 ng/mL, mAMP (Methamphetamine): 500 ng/mL, MTD (Methadone): 200 ng/mL, OPI (Opiates): 100 ng/mL, OXY (Oxycodone): 100 ng/mL, PCP (Phencyclidine): 25 ng/mL, PPX (Propoxyphene): 300 ng/mL, THC (Cannabinoids): 50 ng/mL, TCA (Trycyclic Antidepressants): 300 ng/mL Performed By: #### E TH #### [facility] [address] [place] [address] Dr. Skylar Ramirez DRUG CUT HEADER DRUG CLASS TEST SYSTEM CUT-OFF CONCENTRATIONS ARE FOLLOWS: Normal [facility] Comment on above: Performed By: #### E #### [facility] [address] [place] [address] Dr. Skylar Ramirez mAMP Negative Normal NEGATIVE [facility] Comment on above: Performed By: #### E TH #### [facility] [address] [place] [address] Dr. Skylar Ramirez MTD Negative Normal NEGATIVE [facility] Comment on above: Performed By: #### E TH #### [facility] [address] [place] [address] Dr. Skylar Ramirez OPI Negative Normal NEGATIVE [facility] Comment on above: Performed By: #### E TH #### [facility] [address] [place] [address] Dr. Skylar Ramirez OXY Negative Normal NEGATIVE [facility] Comment on above: Performed By: #### E TH #### [facility] [address] [place] [address] Dr. Skylar Ramirez PCP Negative Normal NEGATIVE [facility] Comment on above: Performed By: #### E TH #### [facility] [address] [place] [address] Dr. Skylar Ramirez PPX Negative Normal NEGATIVE [facility] Comment on above: Performed By: #### E TH #### [facility] [address] [place] [address] Dr. Skylar Ramirez TCA Negative Normal NEGATIVE [facility] Comment on above: Performed By: #### E TH #### [facility] [address] [place] [address] Dr. Skylar Ramirez THC Positive Abnormal NEGATIVE [facility] Comment on above: Performed By: #### E TH #### [facility] [address] [place] [address] Dr. Skylar Ramirez ER URINE PROFILEon 3 Bilirubin Ql (U) Negative Normal NEGATIVE [facility] Comment on above: Performed By: #### D MARIBETH, ERUR #### [facility] [address] [place] [address] Dr. Skylar Ramirez Clarity (U) CLEAR Normal CLEAR [facility] Comment on above: Performed By: #### D MARIBETH, ERUR #### [facility] [address] [place] [address] Dr. Skylar Ramirez Color (U) LT. YELLOW Normal YELLOW [facility] Comment on above: Performed By: #### D MARIBETH, ERUR #### [facility] [address] [place] [address] Dr. Skylar Ramirez ERUAHD A micrscopic examination will be performed if indicated. Normal [facility] Comment on above: Performed By: #### D MARIBETH, ERUR #### [facility] [address] [address] [address] Skylar Ramirez Glucose Ql (U) Negative Normal NEGATIVE [facility] Comment on above: Performed By: #### D MARIBETH, ERUR #### [facility] [address] [place] [address] Dr. Skylar Ramirez Hemoglobin Ql (U) Negative Normal NEGATIVE [facility] Comment on above: Performed By: #### D MARIBETH, ERUR #### [facility] [address] [place] [address] Dr. Skylar Ramirez Ketones Ql (U) Negative Normal NEGATIVE [facility] Comment on above: Performed By: #### D MARIBETH, ERUR #### [facility] [address] [place] [address] Dr. Skylar Ramirez LEUKOCYTES Negative Normal NEGATIVE [facility] Comment on above: Performed By: #### Jessica STAHL, ERUR #### [facility] [address] [place] [address] Dr. Skylar Ramirez Nitrite Ql (U) Negative Normal NEGATIVE [facility] Comment on above: Performed By: #### Jessica STAHL, ERUR #### [facility] [address] [place] [address] Dr. Skylar Ramirez pH (U) 6.0 [pH] Normal 5-9 [facility] Comment on above: Performed By: #### Jessica STAHL, ERUR #### [facility] [address] [place] [address] Dr. Skylar Ramirez SPEC GRAVITY <=1.005 Abnormal 1.005-<=1.02 5 [facility] Comment on above: Performed By: #### Jessica STAHL, ERUR #### [facility] [address] [place] [address] Dr. Skylar Ramirez UA PROTEIN Negative Normal NEGATIVE/ TRACE [facility] Comment on above: Performed By: #### Jessica STAHL, ERUR #### [facility] [address] [place] [address] Dr. Skylar Ramirez UR MICRO IND NOT INDICATED Normal [facility] Comment on above: Performed By: #### D MARIBETH, ERUR #### [facility] [address] [place] [address] Dr. Skylar Ramirez Urobilinogen Qn (U) 0.2 {Evens'U}/dL Normal 0.2 - 1. 0 [facility] Comment on above: Performed By: #### D MARIBETH, ERUR #### [facility] [address] [place] [address] Dr. Skylar Ramirez ETHANOL (BLD ALC)on 07-10-19 23 ALC NOTE NOTE: 80 mg/dl is th e legal limit for a blood alcohol level Normal [facility] Comment on above: Performed By: #### E TH #### [facility] [address] [place] [address] Dr. Skylar Ramirez Ethanol [Mass/Vol] 90 mg/dL Normal [facility] Comment on above: Performed By: #### E TH #### [facility] [address] [place] [address] Dr. Skylar Ramirez ALC NOTE NOTE: 80 mg/dl is th e legal limit for a blood alcohol level Normal [facility] Comment on above: Performed By: #### E TH #### [facility] [address] [place] [address] Dr. Skylar Ramirez Ethanol [Mass/Vol] 116 mg/dL Normal [facility] Comment on above: Performed By: #### E TH #### [facility] [address] [place] [address] Dr. Skylar Ramirez PREG HCG QUALon 07-09-2022 , QUAL Negative Normal NEGATIVE [facility] Comment on above: Performed By: #### P REG #### [facility] [address] [place] [address] Dr. Skylar Ramirez PROF 14(COMP METB)on 023 Albumin [Mass/Vol] 4.4 g/dL Normal 3.4-5.0 [facility] Comment on above: Performed By: #### C MP, SALYC, ACET #### [facility] [address] [address] [address] Skylar Ramirez Albumin/Globulin [Mass ratio] 1.5 {ratio} Normal [facility] Comment on above: Performed By: #### C SERINA GUPTA, ACET #### [facility] [address] [address] [address] Skylar Ramirez ALP [Catalytic activity/Vol] 65 U/L Normal 46-116 [facility] Comment on above: Performed By: #### C ENZO GUPTAYC, ACET #### [facility] [address] [address] [address] Skylar Ramirez ALT [Catalytic activity/Vol] 16 U/L Normal 14-59 [facility] Comment on above: Performed By: #### C SERINA GUPTA, ACET #### [facility] [address] [address] [address] Skylar Ramirez Anion gap [Moles/Vol] 14.2 mmol/L Normal [facility] Comment on above: Performed By: #### C ENZO GUPTAYC, ACET #### [facility] [address] [address] [address] Skylar Ramirez AST [Catalytic activity/Vol] 14 U/L Critically low 15-37 [facility] Comment on above: Performed By: #### C SERINA GUPTA, ACET #### [facility] [address] [address] [address] Skylar Ramirez Bilirubin [Mass/Vol] 0.6 mg/dL Normal 0.2-1.0 [facility] Comment on above: Performed By: #### C CANDY SALYC, ACET #### [facility] [address] [address] [address] Skylar Ramirez Calcium [Mass/Vol] 9.1 mg/dL Normal 8.5-10.1 [facility] Comment on above: Performed By: #### C CANDY, SALYC, ACET #### [facility] [address] [address] [address] Skylar Ramirez Chloride [Moles/Vol] 106 mmol/L Normal 98-107 [facility] Comment on above: Performed By: #### C MP, SALYC, ACET #### [facility] [address] [address] [address] Skylar Ramirez CO2 [Moles/Vol] 26.0 mmol/L Normal 21.0-32.0 [facility] Comment on above: Performed By: #### C MP, SALYC, ACET #### [facility] [address] [address] [address] Skylar Ramirez Creatinine [Mass/Vol] 0.78 mg/dL Normal 0.55-1.02 [facility] Comment on above: Performed By: #### C MP, SALYC, ACET #### [facility] [address] [address] [address] Skylar Ramirez EGFR-AF CITIZEN [place] >60 Normal >=60 [facility] Comment on above: Performed By: #### C MP, SALYC, ACET #### [facility] [address] [address] [address] Skylar Ramirez EGFR-NON AF CITIZEN OF [place] >60 Normal >=60 [facility] Comment on above: Performed By: #### C MP, SALYC, ACET #### [facility] [address] [address] [address] Skylar Ramirez Globulin (S) [Mass/Vol] 3.0 g/dL Normal [facility] Comment on above: Performed By: #### C MP, SALYC, ACET #### [facility] [address] [address] [address] Skylar Ramirez Glucose [Mass/Vol] 129 mg/dL Critically high 74-106 [facility] Comment on above: Performed By: #### C MP, SALYC, ACET #### [facility] [address] [address] [address] Skylar Ramirez Potassium [Moles/Vol] 3.2 mmol/L Critically low 3.5-5.1 [facility] Comment on above: Performed By: #### C MP, SALYC, ACET #### [facility] [address] [address] [address] Skylar Ramirez Protein [Mass/Vol] 7.4 g/dL Normal 6.4-8.2 [facility] Comment on above: Performed By: #### C SERINA GUPTA, ACET #### [facility] [address] [place] [address] Dr. Skylar Ramirez Sodium [Moles/Vol] 143 mmol/L Normal 136-145 [facility] Comment on above: Performed By: #### C SERINA GUPTA, ACET #### [facility] [address] [place] [address] Dr. Skylar Ramirez Urea nitrogen [Mass/Vol] 6.0 mg/dL Critically low 6.4-19.3 [facility] Comment on above: Performed By: #### C SERINA GUPTA, ACET #### [facility] [address] [place] [address] Dr. Skylar Ramirez Urea nitrogen/Creatinine [Mass ratio] 7.7 mg/mg Normal [facility] Comment on above: Performed By: #### C SERINA GUPTA, ACET #### [facility] [address] [place] [address] Dr. Skylar Ramirez SALICYLATEon 07-09-2022 SALICYLATE <2.8 Normal <=19.9 [facility] Comment on above: Performed By: #### C SERINA GUPTA, ACET #### [facility] [address] [place] [address] Dr. Skylar Ramirez XR HAND RT MIN 3Von 07-10-19 23 XR HAND RT MIN 3V PLAIN FILM OF THE HAND RIGHT HISTORY: Pain. Fourth and fifth digit right hand radiating into the wrist. 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 TECHNIQUE: 3 views of the hand are submitted for review. COMPARISON: 02/24/2022 right hand FINDINGS: Previously demonstrated oblique fracture through the midshaft of the fifth digit metacarpal bone is again demonstrated with callus formation and periosteal reaction. There mineralization is decreased in a periarticular distribution. Spaces are maintained allowing for degenerative change. Soft tissues are edematous overlying the knuckles. IMPRESSION: 1. Continued healing of previously demonstrated nondisplaced oblique fracture through the fifth metacarpal bone is again demonstrated. 2. No new fracture. 3. Soft tissue swelling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 This is a normal EEG for the patient's stated age. The underlying rhythm is within normal limits. There were no focal lateralizing or hemispheric features and no evidence of epileptiform activity. Please correlate clinically.[facility] Future Appointments Appointment Date:07/21/2022 02:30:00 PM Scheduled Provider: Location:[facility] Appointment Type:US Abdominal/Pelvis ([facility]) Diagnostic Tests Pending * Chlamydia/Gonococcus, ANUP 07/19/22 Future Scheduled Tests Radiology* US Pelvis Non-OB Complete 07/21/22 * US Transvaginal Non-OB 07/21/22 [facility] Future App[facility]ments Appointment Date:07/21/2022 02:30:00 PM Scheduled [facility]: [facility] Type:US Abdominal/Pelvis ([facility]) Diagnostic Tests Pending * DHEAS 07/20/22 * FSH and LH 07/20/22 * Insulin Level Total 07/20/22 * Testosterone Level Total 07/20/22 Future Scheduled Tests Radiology* US Pelvis Non-OB Complete 07/21/22 * US Transvaginal Non-OB 07/21/22 [facility] Diagnosis Onset Date Resolution Status Major depressive disorder, recurrent, moderate acute Suicidal ideation acute [facility] Work Phone: History general Narrative - Reported* Type Description Date Medical History right hand injury [facility] Other Hospital course Narrative No data available for this section [facility] Additional Instructions Regular diet No [facility] Work Phone: Hospital Discharge instructions No data available for this section [facility] No data available for this section [facility] Summary Purpose Family History No Family History Records Found Relationship Condition Age at Onset Recorded Date/T gisela Not Specified No pertinent family history Unknown Advance Directives No Advanced Directives Records Found Advance Directive Response Recorded Date/ Time Advance Directives No July 09 023 10:26pm Chief Complaint and Reason for Visit Chief Complaint MDD Reason for Visit Major depressive dis order, recurrent, moderate Suicidal ideation Additional Source Comments REASON FOR VISIT (unrecogniz ed section and content) Right Hand Injury Patient Care team informatio n (unrecognized section and content) Team Status: Active Member Role Status Dates Latisha See MD Primary Care Provider Active Team Status: Inactive Member Role Status Dates Latisha See MD Primary Care Provider Active Rajesh Solis MD Admit Provider, Attending Pr griselda Active INFORMATION SOURCE (unrecogn ized section and content) DATE CREATED AUTHOR 07/14/2022 [facility] DATE CREATED AUTHOR AUTHOR'S ORGANIZ ATION 01/07/2023 [facility] DATE CREATED AUTHOR AUTHOR'S ORGANIZ ATION 05/24/2023 [facility] FOR RECORDS PERTAINING TO PATIENTS WHO ARE OR HAVE BEEN ENROLLED IN A CHEMICAL DEPENDENCY/SUBSTANCEABUSE PROGRAM, SOME INFORMATION MAY BE OMITTED. This clinical summary was aggregated from multiple sources. Caution should be exercised in using it in the provision of clinical care. This summary normalizes information from multiple sources, and as a consequence, information in this document may materially change the coding, format and clinical context of patient data. In addition, data may be omitted in some cases. CLINICAL DECISIONS SHOULD BE BASED ON THE PRIMARY CLINICAL RECORDS. [facility] [employer] provides no warranty or guarantee of the accuracy or completeness of information in this document.
--- NOTE | 2023-06-01 12:02 | ED_ITS ---
HPI - General Adult General Chief complaint: Nausea/Vomiting/Diarrhea Stated complaint: SORE THROAT/BLOOD IN PUKE Time Seen by Provider: 06/01/23 12:01 History of Present Illness HPI narrative: Patient is a 17-year-old female whose had flulike and sinus congestion symptoms for the past several weeks. Patient has had some nausea and vomiting the past 2 days, patient noticed some streaky blood in her vomit today. Patient has been taking qqjh-fes-iyectyu Mucinex with little relief. Patient is not taking any other medications. Patient is here in the same room with her younger sister whoo had strep throat last week. Patient has no significant headache, she does have sinus pressure behind her forehead and her cheeks, no ear pain, mild sore throat, no abdominal pain, positive nausea and vomiting, no diarrhea. Patient's had yellowish green emesis, no coffee ground, no significant hematemesis, no melena or hematochezia. No other acute complaints. All systems are negative except as noted/marked. All systems reviewed and otherwise negative. Nurses note and vital signs reviewed and patient is not hypoxic. General: The patient appears well and in no apparent distress. Patient is resting comfortably on cart. Patient is not toxic, lethargic, or listless Skin: Warm, dry, no pallor noted. There is no rash noted. No petechiae, purpura. Head: Normocephalic, atraumatic, Mild tenderness to palpation to bilateral frontomaxillary sinus. Eye: Normal conjunctiva, no drainage, EOMI. PERRL Ears, Nose, Mouth, and Throat: oral mucosa is moist. Bilateral tympanic membranes shows no erythema, perforation or bulging. Mild clear drainage to the posterior pharynx. Nares patent. Mouth without vesicles. Cardiovascular: Regular Rate and Rhythm, no murmur, gallop, rub Respiratory: Patient is in no distress, no accessory muscle use, lungs are clear to auscultation, no wheezing, rales or rhonchi Back: non-tender, no CVA tenderness bilaterally to percussion. No CT LS midline pain GI: no tenderness to palpation, no masses appreciated. No rebound, guarding, or rigidity noted. No distention Musculoskeletal: Patient has full range of motion of all of the extremities, no motor, sensory, or focal neurological deficits Neurological: A&O x4, normal speech Psychiatric: Cooperative Related Data Home Medications Medication Instructions Recorded Confirmed cholecalciferol (vitamin D3) 1,250 50,000 unit PO QWEEK 01/18/23 02/02/23 mcg (50,000 unit) capsule escitalopram oxalate 10 mg tablet 20 mg PO DAILY 01/18/23 02/02/23 Previous Rx's Medication Instructions Recorded ibuprofen 600 mg tablet 600 mg PO TID PRN pain #30 tabs 02/02/23 ondansetron HCl 4 mg tablet 4 mg PO Q6H PRN nausea and 02/02/23 vomiting #12 tabs ondansetron 4 mg disintegrating 4 mg PO Q4H PRN nausea and 06/01/23 tablet vomiting 3 days #6 tabs Allergies Allergy/AdvReac Type Severity Reaction Status Date / Time No Known Drug Allergies Allergy Verified 06/01/23 11:55 PFSH PFSH Social History Smoking status: Current some day smoker Exam Constitutional Vital Signs, click to edit/add: Last Vital Signs Temp 98.1 F 06/01/23 11:51 Pulse 96 H 06/01/23 11:51 Resp 18 06/01/23 11:51 BP 122/82 06/01/23 11:51 Pulse Ox 100 06/01/23 11:51 O2 Del Method Room Air 06/01/23 11:51 Course Vital Signs Vital signs: Vital Signs Temperature 98.1 F 06/01/23 11:51 Pulse Rate 96 H 06/01/23 11:51 Respiratory Rate 18 06/01/23 11:51 Blood Pressure 122/82 06/01/23 11:51 Pulse Oximetry 100 06/01/23 11:51 Oxygen Delivery Method Room Air 06/01/23 11:51 Temperature 98.1 F 06/01/23 11:51 Pulse Rate 96 H 06/01/23 11:51 Respiratory Rate 18 06/01/23 11:51 Blood Pressure 122/82 06/01/23 11:51 Pulse Oximetry 100 06/01/23 11:51 Oxygen Delivery Method Room Air 06/01/23 11:51 Medical Decision Making MDM Narrative Medical decision making narrative: Patient's rapid strep, influenza in color negative. Education on her blood- tinged sputum/vomiting were discussed at bedside. Patient has no significant abnormalities on her lab tests today. Patient will start treating her symptoms at home. Patient will follow-up with PCP for further evaluation next week if not improved. No questions at discharge. Lab Data Labs: Lab Results 06/01/23 Range/Units 12:04 Influenza Type A Ag Negative Influenza Type B Ag Negative SARS-CoV-2 Ag (CV2AG) Negative (NEGATIVE) Streptococcus Screen Negative Discharge Plan Discharge Chief Complaint: Nausea/Vomiting/Diarrhea Clinical Impression: Sinus congestion, Nausea & vomiting Patient Disposition: Home, Self-Care Condition: Fair Prescriptions / Home Meds: New ondansetron 4 mg tablet,disintegrating 4 mg PO Q4H PRN (Reason: nausea and vomiting) 3 Days Qty: 6 0RF No Action ondansetron HCl 4 mg tablet 4 mg PO Q6H PRN (Reason: nausea and vomiting) Qty: 12 0RF ibuprofen 600 mg tablet 600 mg PO TID PRN (Reason: pain) Qty: 30 0RF escitalopram oxalate 10 mg tablet 20 mg PO DAILY cholecalciferol (vitamin D3) 1,250 mcg (50,000 unit) capsule 50,000 unit PO QWEEK Hold Instructions: DC Instructions: Sinusitis (ED), Acute Nausea and Vomiting (ED) Additional Instructions: Increase fluids at home, Gatorade, Powerade, or water. Alternate using DayQuil, NyQuil, and Flonase. At Mucinex as well as needed. Alternate Tylenol and Motrin every 4 hours to help with fever control, body aches or joint pain. Use aphg-vsg-bwztnjl vitamin C, vitamin D3, and zinc to help fight infection and help with her immune system. Stand Alone Forms: Portal Instructions Referrals: Physician,Non-Staff, MD [Primary Care Provider] - 1 week Discharge Date/Time: 06/01/23 13:37
[2023-06-01 12:32] LABS: Influenza Virus A Antigen Negative; Influenza Virus B Antigen Negative; Internal Control Within Normal Limits; SARS-CoV-2 Ag NEGATIVE (NEGATIVE); Strep A Antigen Screen Negative
== END 2023-06-01 13:37 | disposition home or self-care (01) ==
PROVIDERS: Emergency Provider Emergency Medicine
DX: R11.2 Nausea with vomiting, unspecified (principal); R09.81 Nasal congestion; Z79.899 Other long term (current) drug therapy; F17.210 Nicotine dependence, cigarettes, uncomplicated; Z20.822 Contact with and (suspected) exposure to COVID-19
CPT/HCPCS: 87070; 87804; 87811; 87880; 99283

== ENCOUNTER 2023-06-17 18:35 | Emergency (ER) | payer OTHER, SELFPAY ==
[2023-06-17 18:40] VITALS: BP 133/73; PULSE 92; RESP 15; TEMP 36.8; O2SAT 98
--- OUTSIDE RECORDS SUMMARY | 2023-06-17 18:41 | XMS_ITS | CCD ---
Author Name Unknown Address [address] [place] [address] Organization [facility] Care Team Providers Care Pipe Puller Name Role Phone Jack hKan Unavailable LATISHA SEE Primary Care Physician [phone] LATISHA Bowen Primary Care [...] Unavailable MD Latisha See Primary Care Provider MD Rajesh Solis Admit Provider MD Rajesh Solis Attending Provider LATISHA SEE [...] oral solution (5 sources) alpha-Adrenergic Agonist, Uncompetitive X-xfalmb-V-aspartat e Receptor Antagonist, Sigma-1 Agonist Start: 03-23-2022 [...] day(s), # 14 supp, Refills(s) 0, Pharmacy: [facility] #[id number], 168, cm, 04/11/22 12:06:00 EST, Height/Length Dosing, 76, kg, 04/11/22 12:06:00 EST, Weight Dosing Start Date: 04/11/22 Stop Date: 04/18/22 Status: Ordered hydrOXYzine pamoate 50 mg oral capsule (1 source) Antihistamine Start: 07-12-2022 take 50 mg by mouth every six hours Hydroxyzine Pamoate Active 50 MG PO Q6H July 12, 2022 12:00am polyethylene glycol 3350 89190 mg powder for oral solution (1 source) Osmotic Laxative Start: 04-11-2022 End: 04-18-2022 take 17 g by mouth once daily Miralax 3350 17 gram packet 17 gm, Oral, Daily, X 7 day(s), # 255 gm, Refills(s) 0, Pharmacy: [facility] #[id number], 168, cm, 04/11/22 12:06:00 EST, Height/Length Dosing, [...] 1:40 PM EST With: Socorro Casarez Where: [facility] Medicine Betty Normal [facility] Consent for Flu Vaccineon Consent for Flu Vaccine [id number] .[id number] Normal [facility] Family Medicine Office/Clini c Noteon 05-23-2023 [facility] Office/Clinic Note Chief Complaint depression follow up [...] Daily, # 90 tab(s), Refills(s) 1, Pharmacy: [id number], 168, cm, 05/23/23 13:08:00 EST, Height/Length Dosing, 90, kg, 05/23/23 13:08:00 EST, Weight Dosing Completed & reviewed the PHQ-9 score of 13 and the MARCIAL-7 score of 18 today in the office escitalopram, 20 mg = 1 tab(s), Oral, Daily, # 90 tab(s), Refills(s) 1, [facility]: [id number], 168, cm, 05/23/23 13:08:00 EST, Height/Length Dosing, 90, kg, 05/23/23 13:08:00 EST, Weight Dosing f/u in 4 weeks Ordered: influenza virus vaccine, inactivated, 0.5 mL, Injection, IntraMuscular, Once, Stop date 05/23/23 14:00:00 EST, Routine, Start date 05/23/23 14:00:00 EST trazodone, 50 mg = 1 tab(s), Oral, Once a day (at bedtime), # 90 tab(s), Refills(s) 1, Pharmacy: [id number], 168, cm, 05/23/23 13:08:00 EST, Height/Length Dosing, 90, kg, 05/23/23 13:08:00 EST, Weight Dosing 2. Encounter to establish care (Z76.89: Persons encountering health services in other specified circumstances) 3. Encounter for immunization (Z23: Encounter for immunization) Ordered: influenza virus vaccine, inactivated, 0.5 mL, Injection, IntraMuscular, Once, Stop date 05/23/23 14:00:00 EST, Routine, Start date 05/23/23 14:00:00 EST FIRST VACCINE w/o Child Care Worker Admin Charge [id number] Orders: escitalopram, 20 mg = 1 tab(s), Oral, Daily, # 90 tab(s), Refills(s) 1, Pharmacy: [id number], 168, cm, 05/23/23 13:08:00 EST, [...] 1 refills (more content not included)... Normal [facility] Comment on above: Result Comment: Elec [...] pray, or go to a place of mormon. ? Do some deep breathing. To do [...] or salt (sodium). General instructions ? Take yihl-cxs-itkkgbf and prescription medicines only as told by [...] [facility] (more content not included)... Normal [facility] Chlamydia/Gonococcus, NAAon 10-06-2022 C. trachomatis rRNA ANUP+probe Ql (Unsp spec) Negative Invalid Interpretation Code Negative [facility] Comment on above: Performed By: #### 1 [id number], [id number], [id number], [id number] ####[facility] [address] [place] [address] N. gonorrhoeae rRNA ANUP+probe Ql (Unsp spec) Negative Invalid Interpretation Code Negative [facility] Comment on above: Result Comment: Perf ormed at: =[facility] [place] [address] [place] [id number] MD Griffin Loyd Performed By: #### 1 [id number], [id number], 8020392, [id number] ####[facility] [address] [place] [address] C Urineon 10-05-2022 Bacteria identified Cx Nom [...] Locations R1: This test was performed at: [facility], [address] [place] [address], [address] , , Normal [facility] Comment on above: Performed By: #### 1 [id number], 66576152, 2264620, [id number] ####[facility] [address] [place] [address] Consent for Treatmenton 09-15 Consent for Treatment [id number] .00CD:127 Normal [facility] Discharge Instructionson Discharge Instructions [id number] #1.00CD:127 Normal [facility] ED Clinical Summaryon 2022 ED Clinical Summary [address] [address] ED Clinical Summary Person Information Name: LENY GALVEZ/NewMimi Age: 17 Years : 2005 Sex: Female Language: Dutch PCP: LATISHA SEE MD Marital Status: Single [...] 15:55:29 10/03/2022 15:55:29 10/03/2022 15:55:29 ADDRESS: [address] [facility] [id number] PHYS DOC NOTES: MEDICAL INFORMATION: Prescriptions Given: New Medications [id number], [address] [place] [id number], [phone] doxycycline (doxycycline monohydrate 100 mg oral tablet) 1 Tablets By Mouth 2 times a day for 10 Days. Refills: 0. Medications to Continue with No Changes Other Medications brompheniramine/dextr omethorphan/PSE (Bromfed DM oral syrup) 5 Milliliter By Mouth 4 times a day as needed for cough and congestion. Refills: 0. PATIENT EDUCATION INFORMATION: Instructions: Follow up: With: Address: When: Kevin Buckner [address] [place], [place] [address]LAYALA JOSHUA[address] [address] Business (1) In 3 days 10/06/2022 With: Address: When: LATISHA SEE [address] [place] [phone] Business (1) In 3 days DIAGNOSIS: Cervicitis; Exposure to chlamydia Normal [facility] ED Note-Physicianon 10-04-19 ED Note-Physician Basic [...] this plan. I, Dr. Leahy had a zrsj-xy-neqw interaction with the patient. I personally performed [...] day(s), # 20 tab(s), Refills(s) 0, Pharmacy: [facility] #[id number], 168, cm, 10/03/22 14:11:00 EDT, Height/Length Dosing, 76, kg, 10/03/22 14:11:00 EDT, Weight Dosing Chlamydia/Gonococcus, ANUP U Beta Hcg Qual UA With Cult Reflex Urine Culture Disposition Plan Discharge Prescription List Prescriptions doxycycline monohydrate 100 mg oral tablet, 100 mg= 1 tab(s), Oral, BID Follow-up With When Contact Information Kevin Buckner In 3 days 10/06/[address], [address] [place] [address]- Business (1) Additional Instructions: LATISHA SEE In 3 days [address] [place] [address] Business (1) Additional Instructions: Problem [...] (10/03/22 1 (more content not included)... Normal [facility] Comment on above: Result Comment: Elec tronically Signed By: Aicha Burris\.br\Date and Time Signed: 10/03/22 14:53 EDT\.br\Electronically Co-Signed By: Guillermo Leahy DO\.br\Date and Time Co-Signed: 10/03/22 15:45 EDT ED Patient Education Noteon 10-03-2022 ED Patient Education Note Normal [facility] ED Patient Summaryon 023 ED Patient Summary [place] [id number] Patient Discharge Instructions Person Information Name: LENY GALVEZ Age: 17 Years Arrival Date: 10/03/2022 14:06:21 Discharge Diagnosis: Cervicitis; Exposure to chlamydia Primary Care Physician: LATISHA SEE MD Provider Information Primary Provider: Guillermo Leahy DO Advanced Guest Relations Receptionist:None The exam and treatment you received in the Emergency Department were for an urgent problem and are not intended as complete care. It is important that you follow up with a doctor, nurse practitioner, or physician?s computer lab assistant for ongoing care. If your symptoms become [...] Kevin Dudley [address], [address], [facility] [place] [address] Business (1) In 3 days 10/06/2022 With: Address: When: LATISHA SEE [address] [place], [place] [phone] Business (1) In 3 days In the event that this physician does not participate in your insurance network, please consult with your insurance company to find a nearby participating provider. Patient Education Materials: A MESSAGE TO ALL PATIENTS REGARDING OPIOIDS PRESCRIPTION OPIOIDS: WHAT YOU NEED TO KNOW Prescription opioids can be used to help relieve mozojznm-ja-kxmbbq pain and are often prescribed following a [...] be struggling with addiction, tell your health managed care specialist (more content not included)... Normal [facility] U BetaHcg Qualon 10-03-2022 HCG.beta subunit (U) [Moles/Vol] Negative Normal [facility] Comment on above: Performed By: #### 1 [id number], 05205348, 2043823, [id number] ####[facility] [address] [place] [address] UA With Cult Reflexon 2022 Bacteria LM Ql (Urine sed) 1+ /HPF Abnormal Trace [facility] Comment on above: Performed By: #### 1 [id number], 71027247, 0631651, 36159101 ####[facility] [address] [place] [address] Crystals LM Ql (Urine sed) Present Normal [facility] Comment on above: Performed By: #### 1 35603689, 49346974, 6216450, 42874983 ####[facility] [address] [place] [address] Epithelial cells.squamous LM.HPF (Urine sed) [#/Area] /[HPF] Normal 0-2 [facility] Comment on above: Performed By: #### 1 51134793, 11863140, 1506429, 62631114 ####[address] [address] [place].plasma/[place] .RBC (Bld) [Mass ratio] 0-3 Normal 0-3 [facility] Comment on above: Performed By: #### 1 06538627, 89372154, 4239538, 04028967 ####[address] [address] Mucus Ql (Urine sed) 3+ Normal [facility] Comment on above: Performed By: #### 1 88909777, 21999565, 5688654, 60874900 ####[place] [address] WBC LM.HPF (Urine sed) [#/Area] 6-15 Abnormal 0-5 [facility] Comment on above: Performed By: #### 1 47603439, 90445089, 1743316, 49137788 ####[address] [address] Bilirubin Ql (U) Negative Normal Negative [facility] Comment on above: Performed By: #### 1 [id number], 31815174, 9361257, 16476388 ####[facility] [address] [place] [address] Clarity (U) CLEAR Normal Clear [facility] Comment on above: Performed By: #### 1 74562402, 80531368, 6532565, 26821882 ####[address] [address] Color (U) YELLOW Normal Yellow [facility] Comment on above: Performed By: #### 1 25949890, 06451778, 0660592, 86039157 ####[facility] [address] [place] [address] Glucose Test strip (U) [Mass/Vol] Negative Normal Negative [facility] Comment on above: Performed By: #### 1 52836888, 94069865, 5375753, 21069095 ####[address] [address] Hemoglobin Ql (U) Negative Normal Negative [facility] Comment on above: Performed By: #### 1 14810886, 89166256, 5527397, 87464995 ####[address] [address] Ketones (U) [Mass/Vol] Negative Normal Negative [facility] Comment on above: Performed By: #### 1 11321831, 49569466, 4522262, 80668392 ####[address] [address] Nitrite Ql (U) Negative Normal Negative [facility] Comment on above: Performed By: #### 1 04570858, 49475470, 0594351, 03987823 ####[address] [address] pH (U) 7.0 [pH] Invalid Interpretation Code 5.0-9.0 [facility] Comment on above: Performed By: #### 1 12362660, 35787967, 1152694, 73717988 ####[address] [address] Protein (U) [Mass/Vol] Negative Normal Negative [facility] Comment on above: Performed By: #### 1 32506950, 07661014, 3228545, 53373205 ####[address] [address] Specific gravity (U) [Rel density] 1.020 Invalid Interpretation Code 1.005-1.030 [facility] Comment on above: Performed By: #### 1 16652029, 34269838, 0341529, 10312509 ####[facility] [address] [place] [address] Type of Urine collection method Clean Catch Normal [facility] Comment on above: Performed By: #### 1 77409577, 75971038, 1934164, 69212186 ####[facility] [address] [place] [address] Urobilinogen Qn (U) 1.0 {Evens'U}/dL Normal 0.0-1.0 [facility] Comment on above: Performed By: #### 1 89553190, 22964052, 8033565, 84435882 ####[address] [address] WBC Auto Ql (U) TRACE Abnormal Negative [facility] Comment on above: Performed By: #### 1 71665651, 48162273, 7988433, 34592487 ####[place] [address] [place] [address] Coding Summary.on 07-28-2022 Coding Summary. CD:[id number] W w+PGhlYWQ+CV9NGVQtD14 bhMQpgH1eL1OWKVlTUerk FVXOFIpPLkEwddPrQB3mq XNjZXJu IC8+QG8tQIPoClsvsRKzm 6G7wBY9G18wpd4sUPtcmK N7JMSrXzYqsolvv2oekTs 6IDcuNmluOyBt UQTgkN59IBG7oQ88Gz07p YLvxSGig7rnsKi4WjUvFG TxDXY4uAtbNInkn4MvIKM qO41qoELhv7N6 BYKtzHxlcCFnQgQbmGL1w N0iOGgupyanc9kgoidnIy p7lh95xSMgp9M9kTU7R1Z jidW3HMCjgPUi IchytVBNrM6kjfgot8cda dtgKdKqTXEeFRc8FOb4KJ LvyVypDlPyED51RSA3SZG pwcFgQ9FuVWDa cXegDdW4f9P8Yc5ZR4FSC atrV5FVXYMQXQeooDV+PC 16bk60A3HrXeczZwr3FEI pFCE4lIU6fM5j ACHvIRdxm6E8fME9W0Cxw jJlnm3ax1hiPPBmFWdiY3 5oqRYcy0L9WYLieRB6ZKE ipSvwXrNloR75 Oyc+JWIreGalj2UoDcbut 8ofy7bqxDr6LhnxIMCsqf NumNztWPJ2q4EhIc3wUIJ prYX0jPX4iF1n YrLjUhI9XNlhF442EjYfj GRvMrsyO39iO4WvyEH+PH AfPkz1WSJjaUpnLQ2eM8U hZGRpbmctbGVm dPhbNV6iCRStcvqiPVYxw H2wBFNbB7a7PtGyVbI3UT ywI4BlXXJwmsofKp99sS2 gOmHrJiN5PJxo I3CczgS3XEFolSFuONsnN AI9Q51kh2N7KDVjPOYgLF X7wAZ0eX3bsGzesciwfNV mdDsgdmVydGlj OLlsUTvqI724DVBsjMerI kNvZGluZyBEYXRlOiAgMD QvMTQvMjAyMzwvdGQ+PHR tLWA2zJdiJNQa nUPqRVesBz6ipRbyfJeoI Y4pXMZsyubrYEDtlN0mWG BsdVGfwBepNI0sLCOlhid rd905CsMhLGX0 QJXkcAPgN2OthS8rObSpD ZPoCFCjO0NhiPJqBYjbP4 04DRrnKfC8LLZnbsWyX3K sLWFsaWduOiB0 g2V0Ey0Ls1JuyzupM9Jzy NXeFqNkHffbMHk3W7TaGe wvdHI+QU34LQGgPA08JZq 2ALR3yFifMBnf MNFkS9GbcO7tNuGbBTPqJ GRkOyc+PHRhYmxlIHdpZH RoPScxMDAlJyBzdHlsZT0 zQj6yNLQlKWPy sPgolFMyRiSmt7txRMCyP DaoAH0hxEfuX2NdfYZ8IG Uwd8p0Zi85O03kJ6ZmjIY +DBTscXG3aPV6 kA4cCnFcJtO4CJujW861I qMdmZXkHsmnr6hgk4jiwF s9QvS8MKSeedAhnVkwGBJ 6u3ZxXh47J26p IHdpZHRoPSIxNSUiIHZhb Rmftf7psD8mJq4+PGNvbC F9sTD9hM3pQhSmQjM0ELg yS289HvOkgKUo Gtxbz4lwm5sxpYh5BlXlY VMhuwFanXwqSNV6a5ScOi 10P9EiwHvaj5ClYxg5di7 1kUUls2U4cVK5 C2AzCNLfldfjtCIxbDlpK O6kCCFkicmmGIMdfB0lYN ZkD7s0KpPkWwE3HNuiN1D klyH1ESQdnDPq MDOcwECCuZ4fighhy4hlw yjwOlGtQRAhYKf6RUi7EV RydCsxYyArVRZ8NwY6HWX 0uMXzlH2puCya wdvdfR5tOwg+EGA3eMIos VGBWL8cAstjtGN+PHRkIH X6aVmdPQzpFKOxdS5fGJF yT5c6IaViUoQ0 PVrgS1CrrdQ1PVSphGEkT VQviCRBmF5gjalpa7vccz xtXoPiWPHwBBo9ODn9JBP saWduOiBsZWZ0 ZwC1HAM5tYYtqN6ojGfzk byqfJ5dHcu+QmlydGggRG S8BJl3H8VzIij2WYFvtDi kTS1whEQhJTfm Be8ypEdkuAtoWL4sNXFtv wodz640RhHke4ecYAWgqH JuEBhsMPG1C87rn1S3YUV gAYUaLVD9bIU6 eJ7kvYvoczdwhKTvuZsnn oSxlMllLUwrXHmcD505LS RouXgtKqQwFEg1C3PnOsv 2ZZQgaSsfHP7n vTTfFQpjNb2pzMenfJurX R4gIQLskyodp178TiXvs4 zlLAVtmCWlOUyvHZI4S25 vo0U8JZUnNAWy JHZ1bJM8pV2emUayzhgac GVmdDsgdmVydGljYWwtYW axF243PRMvaOacTsYtnNu 2E2IbCze3OLCv zCanSF1ceFXuQDoiSm2bf NgrgQlyKG2jAYPjjwred5 76AoSux9obJBLwiONyUWb tSEF4X85jw4L9 AEBuBIJkLGG5qTY8eN6ca GlnbjogbGVmdDsgdmVydG jnYCpdZBzzI882JUEftJe nPlBhdGllbnQg EMygKEx6P5SwNhrbzWO+P U37MGCjXZ61jKJodGDge6 wbgRf0YvVpRGYeHMR4dKw wPKezl3MbRTJe Z65twDYwj2L1WRIokPoha SEaSrRxoYO3qU4bWHlblw ggk4nucuwaBxjjo2wswi1 4lS12S77rLYif ZHRoPSIzMCUiIHZhbGlnb w7vkU1fUj6+AQSxqMJ3oU B6jD6cJXYdDoM7VLtnI34 9InRvcCIvPjxj j4okm3qlmXt0WgH0KCCkt uZjdAfdLSK7t2PtDz02P6 9sIHdpZHRoPSIyMCUiIHZ xhJqzfa6agF9j Ii8+WTRwjVR9xDF3vP1rD lYcScG8FRohH217RaOevZ XvLfkeX92bD6XfjYR+PHR aWfh8MJSnaAvh WL4ilPYeYCjyBx7jTUX2T yFlCeObZOoeS2QzTQKcml seqvnbxQV8UQDcJADnkN2 0Js0maJceVAYf fBXEuL7skbuey0puaodqK gVfAJSbBFp7NWz1IQHuiO hdKbEtDDQ6BoL5RDT6qYD mhZ6uwCspsili aC0vH1HhSBKlbwqgAm98t X1iDtCeLoH6JXuqCgk+V0 hAR32JSIAXXKrFEYROCK2 6QP65mJHjm3G1 nVF4G5OoYUUexntxisebl YC0SMKmXVAriP63jLNiWL iwRf0fu7X7o277DEIaFKM mqH53Ns9bwYek FKAwmTIXbN2gvqvng1bcm ncjNvOmHVXxPAt7SXn2IX HsfWypUdHyLQH2ViH1DAY 9kXAtnB3dtMha kjbixT5iQbo+MDIvMjYvM jAwNDwvdGQ+QILlPCY3vB ciMBapWOZhoX1jVOPwU0v 0NvUvVuW6DJln F4LdVVVvsyrqOk68sO1bP eKnUsN3TPmvY8BopiD6FY KngJVvZZobYWL6N83sd5L 2PBAtSIXiLLY3 mFN1hM3poJirrppumKAju DsgdmVydGljYWwtYWxpZ2 21KGNhrFbySzT8FLweZKL yOC42YE98gMUq m9Y3qJE2H6BaYVYxwkcnf bhbwVA3DYYfVDCquH33oM RiCYtzJi6pp6T8c980QKZ xBRUasB09Lb8t aQmpTMVxlZSShC8mhfesx 7tjtfuxReLiDOMjPAu1YF c1ZZHzbPqiYgBeWFW2QuP 0KCJ9bNHybS3t oTipbyvzxN4rDop+RmVtY ZtqIS76RL54aLXqc0C6iN K3Z7WoZPAlqvdjtnivdGN 3ZYKkWAGevS34 pDAmLLaaAw8aw4M6r471O ZRjIJBjtN08Hs6zxZvwLW RuoLSCdK1gvizml9ocajz gIzAwMDAwMDt0 NJb0AXCumXelMgErNKL3N rG3AUA3wAUyuN8ntKzgki ccaH8uPqj+L1J1uGE5gTM udDwvdGQ+PC90 cr61C4IkAtjwQvm7NDTgA JF1zZZ4jY6nPHGmYGmzu9 Q2yLB5U4HtepTxzo6eo7z xXDArJSaeH31h vOQlo5B7SUPbfQF5FJEwi BnhPuTecR72Ots+PGNvbG lji1UqKulbj9yrl0eiePj 9IjMwJSIgdmFs xKxeQXX3p7TvXq28M31tN HdpZHRoPSIzMCUiIHZhbG yqdd9kwG7yQs9+PGNvbCB 0nJH1hE4kCpWs KqX6MTkzQ937DqJnbPFrK misc6qtm1ofpMv1RwQxQJ AltaEqvYjnWNE1u1RoUn2 3T9GxmOayt4Yh Xub5ru10yMCpi4G7nYG9B 3BhZGRpbmctbGVmdDogMC 3nFBEzfylaATAneS1mONB dA2n8BtIeGwT1 KLeeI2SpwlH2BSFxhMTdT SYcaTJWkO3yhpatq1mfnc trMiHnHYXsYRo1MLb8PAY saWduOiBsZWZ0 BzZ9MMD9dCDxyM6ucYkae cuzmM7jDor+WWc6b0lgsT JqLC1xoSM5WB41WK69iZZ of2B2cKH8L5Qq MSXekiwnnuktrNP0QHLyA GLvmZ22Sv0qqCerOn2hJP BxJYR6JVIdeIHdU3IhhL9 yOiAjMDAwMDAw V1GllRCvQNrsQ903XBhwB dE3XXJvdbKfA4NeZWFcyT mzViW8k5S6Vf8OTT56UJ2 4QG29lAAah2U7 nKS1O6VfIJSghkdkwlcdz DD9TZBmEUCxuT56Ct4vgW oqZt5jAPJqSEJ1AHDjdJQ tO6QbxY9dLdXd QHNdGJBtG8GlrHFpJZqfY 478RGaqZdR3DAEvtoJiZ7 QkBROfkEamLpZ5f1Z5Jx8 GMr17XW27VU90 cFDmk3I6xPY9X8MrKPLpy yrlmvczsHQ6ACOfGUKryJ 03Ls6jxQrmGl5eZNWyTAJ 6RJMxeUBrT1Ha zB5pEvMbJVUgKRPcX5Gfx HTvAJorS452RFqgCwE6PN UmuvBfE7QaHFWjzQjgWxP 7v7X3Cw6VKJjt dgn3Q9ZhAhfgpLT+PC90Y WBeAE10kSBtdBJdk9obqM s8YcKbQHCnMGE5xCdzMZr qa8QvNBXbO96c nCXri2N5 (more content not included)... Normal [facility] Coding Summary.on 07-27-2022 Coding Summary. CD:[id number] W w+PGhlYWQ+CE5SZNRrM62 cjTZbsD5lM6RHBFxJThsh HIZJILnBHvUxawZxYU9kk XNjZXJu IC8+AU6dVUYwLkpuzBSzw 7D5rRT7Y10jar5dHLhwsV B6JFTkTwBsvzfcb5mdcJn 6IDcuNmluOyBt XXGfmA47MFI4aW32Nu36f HMtnLElz7uahEt0RqIxNR GkVTB5kFijMKdwu9NpJSU rG84sdQUsf9K8 RTIylXaygTArVzInnWS4g T0fVCikvjlyp9gwjptmVg g6sm87aDMqs1Y8iOV5E3K kucS6SKLesIFn JyqjfKNRfN7uqqbon7bto izvMhQpSREkQBe7MJj7CP GrfVtmAcIpVW16YMJ8VVI vgmGoL3NrGGJl kWyiVsK9c4E4Zu9VM8UDI kwzL7YPGDYWXUwrsNC+PC 56va92N4KyGdsmLkc1DIE gWMX5jXU7gU2x TWNaMAnon2S6cSF9S7Fxb lNpud0ta1xoJTJeNGkwS0 3qmCNbn5I8WMGmxDR3LJB ieKosYpTqkW67 Oyc+ZLFxwMumi3PvKsaqm 7cvc3qibXk7QoewAVOqpc HacRyvWMJ8u5XaLg5kCOY iwUL7xCS5vD3t WwPfOaS4XFlgS684BfXug TRmRsurF18pB3JxnCG+PH PoKie2DQSumTemCX9qT3V hZGRpbmctbGVm xNbgBG9lYLOyutgwCXVbg E4wSKYjF3d1AyMmWwF7TF etT8JwBMNdxiwuIr01cZ1 xRnUbQnE9GPor M2MniyU6AIXaiSFaPQtbL GM0W34be7W3QSRpNQCoDS Y0vPD4rL4tnWasarlsuSW mdDsgdmVydGlj SBajIDehE181EXMjuHqnM kNvZGluZyBEYXRlOiAgMD QvMTMvMjAyMzwvdGQ+PHR iKBW4mRzbTEAf cIEdUPgkVy9tbMlagFqtN L2cRMHsrkmzADQcxR8bTM QneQAjrItyAO3zYLJevxs ad933IfZcGBQ8 UNIltYIwE3AopP3vKdDjC NRuGPTyR0LqwJBmFVnnF3 39PMpwGnH4KXEfbmJsL9P sLWFsaWduOiB0 r8B0Kb6Un1IatvmuE8Sfj EYrLaVkHodpRBi9J5YqAb wvdHI+PQ94QWZtEZ07TFq 6TBB5tOwfRWgv ROSnC4YmnP2cTjVsIFVuY GRkOyc+PHRhYmxlIHdpZH RoPScxMDAlJyBzdHlsZT0 zEs4fKWVsPSXl kNgclZUvMnVbj7jkDQZuT KmdUP2ijJqhA0QjbRK0MO Yxf9q5Jz24Z30jM4PztVC +FGWygGP7mAG6 zF1pMmIaAmA3GYjnQ441P kTzuERiDmaqq0fbd8ihfN y4MfP6NSOitzWucPfaKCQ 3j0OuWy68Y17v IHdpZHRoPSIxNSUiIHZhb Tnokn8knN9aEg2+PGNvbC I2tVZ0fZ6qVpVkBbF0CSb vP887FxUpcSFs Iiprf3ffm5gjnEl5SbYkU ADcqxFmeTjxCOW5i1AtTq 03Q9BvxGndd0FlKtw3po3 0eLBdv0P3yBW4 S9DuQJPvuxulzFUlgWvdR J2hLGFkijpiWJAcdD0uIM UgC6y7NjVrNxR9HOcvV9J xpoH1RZIzkQRc ALTfxLEZaY7rduofd3nru gxwBtPsXWViRPq5FJe6BF QdpGpsUiNeFNR0YmC6EWI 0sXXezL7ouEhh qkhahB6xXhp+ZBD2uJVvi DIIFQ3hCpbnlJM+PHRkIH Y2nBmfABdyIOHfnC7uGZV sD2d0CxVcVpP0 MEhsU2AyuaT0HNVdrJJtG EOlsUGBvH3ldhfuk2qito bcNjRsCARqZQq6FYh8JQG saWduOiBsZWZ0 OzJ7YKD8hXFnaL4ecUswx ftyjF1zZsd+QmlydGggRG A4WQv0T4EfUkw0OKYolLu wEI4xrNYeKEsm Mv9sfLvdsEtoMN2pEHEkl rlwf513PhXlx8zpRJIryC FvXLawGJP6T83cl8E8ZLM eBQXfIHA5oPO8 oT8yeYhtzdhvqNGkmDxvv cZxcIauWUvyCZnkY695ZF GekObtDoJvUIw3Y3NoMia 6ZVAgcZscRG6i iZTbVNuvVs1joHattRaaG N3nYIMoolqqe699RxQno1 uqMJXlwGPvQAxaXTC5E92 ru5I8AJLvIQGi QBF3oTD2bN5keJeasxmes GVmdDsgdmVydGljYWwtYW ufQ128UGUevKktBlPydDr 5H4IfHqh4UXRv rGceHE2bvSJyXXlnTx9wz WtbeNdhRA9dSKSrhhxmp1 07MbYnx9zmLXLxcSGkEOi hOIX5O09vc9F3 LJRkVCAoQEA8nVY5gS8no GlnbjogbGVmdDsgdmVydG xfIBbfHUteK327DGItkHl nPlBhdGllbnQg LPmdEBh9X1XwEjedpUH+P U07AVHwEE70xNJvrFSvi3 busVe6WzGhBZHiEYR6eKf dPAiil8LoHWAk H69wsUKku8P6MBSalIqkk YZnWzMwuWH8kE6wEOxazm esb5ybstvsSgugc6wgen9 5qZ79Z56wTUnh ZHRoPSIzMCUiIHZhbGlnb x6ffG7pEq7+IYFtpSG6gU V3tH1jLBHqOmD3QFnqI71 9InRvcCIvPjxj w5ihe1whrTo8FlY8NBQxw bDoqXtxDBV9c6PrMl32F9 9sIHdpZHRoPSIyMCUiIHZ dhSixck1vbS6n Ii8+XHRqkAB1rSD3lT3xB bLzPlQ7IXioR959OcRgsL GyYlwtE20hC3GsnNZ+PHR nBtf9IOSneExf EM3wgQQtALseAr4rEWD8M qSiVyVvTKcoW2LzXHIfrr hhfxymgLZ7KGOqJXTmxY8 3Ya8quHsjPNKf oWETuS3ybafrl0dviihjH zHiRFOyXNn6ZXg2JOPxfE kdEyYsGPJ4XyO7BSS7nEV cvD7vmZcubzjd gS2fD1AlXLFqdjilXh86i V1xVwMzNkX7POobHrt+V0 ePE84BXRKIMRyIKABHRA7 1MC58uHWss7M4 eKP6R0AcHLNgkozowcwkq PY9JNYgLJMqsL41mFGaJG gaEr0co2B9e684QTOcYSX mkM83Zi9jyKby SBVnzVECjD6zpbppo1fqc genBjUnDMBsYIf2HEg2CM XwuUdlTwFvJLZ8PqF0LBK 5xBWvoF5nuDlb mxwbmO4uOzi+MDIvMjYvM jAwNDwvdGQ+NYIfTCA6mY lvYZwcHOBncK3eGWBhR2f 7TlKfNvH5SLbp L5NbEHHeqxibNh21aT6sR uAoXsC6AFgpW6EtecC1WU TcnNHtHAswLPN0F62dk7X 5DJImPPOrYZF7 iEV5xO9uuXetfbvxxWWvn DsgdmVydGljYWwtYWxpZ2 54UHPqhLjpMzZ4SVjcMWR fOG59PO71nAMy t1X5uRI8X3IkORXeqlqcu qdtgFY4KVIqOWNshN40tA FuWQrdUy5ti6E9m866SUD iEJAguW16Iw6t zGthESPboDKYgU5yvqdpw 6enstmjIaWdMPXmKQz5TB s9NSZpoEvmYcPvDFZ8ObJ 0HIZ0oUUtwC1a lJipribqwS7qKuz+RmVtY NpzXA82UV65vAKve0N3sQ D4B4LsEHEnnndprixpyAF 7QLYqOMYofS04 gGZgSThpQe4rx6O9c153R NGyQHWhxW57Zv0wnZivRR VxkESOgV3auicqc6lmovw gIzAwMDAwMDt0 RHi6WMSheKenFfEbXKQ3J aB6XVU0gTDveP6ewUxeak epaE8lYfh+QTGkXOOnd9N xn8DoSE15IG54 C0KsPygmpVRomJE+PHRhY mxlIHdpZHRoPScxMDAlJy YdpJtyFR1iVn1bGTJxSSZ vbGxhcHNlOiBj p2tfEXVrMYmcKR3tdBteI 2JreJU7RTLkj3k9Pk78S3 8kB2GzrKU+LLJprUZ2xFQ 5nV9aOxWjFlF9 TAkeC394RzUpfZVnWpicy 9yjy4tflMr4ZrVhTLIktk QiwSvoOBW6d9GvEr60X88 sIHdpZHRoPSIy GTJtNHGnnKxfdz6ivY3kU i8+SUHpvJV8kFK7aP2wPc GvAnR6HVfeH033CrHkwCG fFpmbD52pE9Jn dXA+AQQmFko6UERljGtbC I7urDNzOXnrPh8oXXS3Mh BbIoJyZSaqT0PdYQSvghm hphulxXX3WAJo ZOZaoI04Im1ijFwpGk4uR NDbDAK2RCYiaWWsI5CrjH 7lNmYfPEGrKWUkP6LyzPM tKBpkE095YSwg BlY1NKNmlxHeG6ZdAAKlr IzaOmX9u7W2Lf5QvOfgcF SiET4cVoVrILv9N9EeKer 3BNCbnXhfQZ5e zWHiAJgbLk8ogZbpcGgnM H6uWUAnlshtz142DiWkh0 lmHCRhlWXoDLqkIWB6U86 fw0P2VEAtUTEn YMN8cLV0yZ0qgKvcbjbhk GVmdDsgdmVydGljYWwtYW voH623VFGceJgaHfQUBic 2J3PrSuh5JLLs lFzqTB9zoDXxYTogDp3ua HfreZvcMO5hWODncdbrp8 92YaUyz1ikDADoyVZqXDs aYYG2A10pc9Y4 SRXkIZWpBHV2rZP5iQ3gn GlnbjogbGVmdDsgdmVydG fcOZclWWcrZ865VQMztEn hYj7QFgv5M5Fc Btf0CQPgtXueOW5bkWRcZ UmvQl9qeIjcyBteSP0bBA Tzasmyo294AvVsj5iaKMF wcHQgVGltZXM7 I10ax3P4VBBtDFVdVAT3h JT0sJ6ykIwbgzvdbELxbP lyknDzaBjaHGlaSNbmW18 6IHRvcDsnPlBh eWVyOjwvdGQ+HR36sr44H 6HaNhwaTec9XWSeZWY1lD W2sK2dWIFqYNndo4P8oSH 8N0DxncNurd0i p6bgURBs (more content not included)... Normal [facility] Chlamydia/Gonococcus, NAAon 07-22-2022 C. trachomatis rRNA ANUP+probe Ql (Unsp spec) Negative Invalid Interpretation Code Negative [facility] Comment on above: Performed By: #### 1 [id number] ####[facility] [address] [place] [address] N. gonorrhoeae rRNA ANUP+probe Ql (Unsp spec) Negative Invalid Interpretation Code Negative [facility] Comment on above: Result Comment: Perf ormed at: [facility] [address] [place] [id number] MD Griffin Loyd Performed By: #### 1 [id number] ####[facility] [address] [place] [address] DHEASon 07-21-2022 DHEA-S [Mass/Vol] 246.0 microgram/dL Invalid Interpretation Code 110.0-433.2 [facility] Comment on above: Result Comment: Perf ormed at: [address] [id number] PhD Arnie Polanco Performed By: #### 7 [id number], [id number], 9331404, 9745901, 1117182, [id number], 6240169, 05697569 ####[address] [address] FSH and LHon 07-21-2022 Follitropin Qn 2.9 m[IU]/mL Invalid Interpretation Code [facility] Comment on above: Result Comment: Adul t Female: Follicular phase 3.5 - 12.5 Ovulation phase 4.7 - 21.5 Luteal phase 1.7 - 7.7 Postmenopausal 25.8 - 134.8 Performed at: [address] [id number] PhD Arnie Polanco Performed By: #### 7 [id number], [id number], 28085523, 1662940, 9690632, 3481431, 4621276, 321672155, 2780598, 69576954 ####[facility] [address] [place] [address] Lutropin Qn 9.8 m[IU]/mL Invalid Interpretation Code [facility] Comment on above: Result Comment: Adul t Female: Follicular phase 2.4 - 12.6 Ovulation phase 14.0 - 95.6 Luteal phase 1.0 - 11.4 Postmenopausal 7.7 - 58.5 Performed By: #### 7 [id number], 96445421, 88335159, 9603164, 9257680, 8416732, 7633302, 702294549, 5627430, 69800969 ####[facility] [address] [place] [address] Insulin Lvlon 07-21-2022 Insulin Qn 21.1 u[IU]/mL Invalid Interpretation Code 2.6-24.9 [facility] Comment on above: Result Comment: Perf ormed at: [employer] [id number] PhD Arnie Polanco Performed By: #### 7 [id number], 59927245, 81592820, 2841449, 6424474, 5415339, 8938265, 347921304, 7106173, 60522132 ####[facility] [address] [place] [address] Testost Totalon 07-21-2022 Testosterone [Mass/Vol] 22 ng/dL Invalid Interpretation Code [facility] Comment on above: Result Comment: Perf ormed at: [employer] [id number] PhD Arnie Polanco Performed By: #### 7 [id number], 97612901, 71111114, 8444840, 8833699, 7459951, 0098379, 650210694, 3944756, 63142955 ####[facility] [address] [place] [address] CHEMISTRYOrdered By: SYSTEM SYSTEM on 07-20-2022 25-hydroxyvitamin [...] (Bld) [Mass fraction] 4.3 % Normal <=5.9% [facility] [place] [facility] Glu Fastingon 07-20-2022 Glucose [Mass/Vol] 92 mg/dL Normal 55-99 [facility] Comment on above: Performed By: #### 7 [id number], 70094809, 16052175, 2679540, 9653154, 0446444, 8732768, 133789561, 0067368, 56364042 ####[facility] [address] [place] [address] MeaQ4fuu 07-20-2022 HbA1c (Bld) [Mass fraction] 4.3 % Normal <=5.9 [facility] Comment on above: Performed By: #### 7 [id number], 11256723, 69052328, 2646366, 4064377, 0068891, 3794458, 713518959, 9748592, 82729615 ####[facility] [address] [place] [address] Lipid Panelon 07-20-2022 Cholesterol [Mass/Vol] 140 mg/dL Normal 120-200 [facility] Comment on above: Performed By: #### 7 [id number], 99690190, 86798954, 0138681, 1054213, 6013843, 0669146, 629780684, 3313278, 43370839 ####[facility] [address] [place] [address] Cholesterol in HDL [Mass/Vol] 56 mg/dL Invalid Interpretation Code [facility] Comment on above: Result Comment: HDL > or equal to 60 mg/dL: Low cardiovascular risk HDL < 40 mg/dL : High cardiovascular risk Performed By: #### 7 [id number], 14109755, 65985945, 5054012, 7499228, 2951949, 2733958, 051781056, 9941488, 12005174 ####[facility] [address] [place] [address] Cholesterol in LDL [Mass/Vol] 82 mg/dL Normal <=129 [facility] Comment on above: Performed By: #### 7 [id number], 11267675, 80938834, 3368789, 1843158, 9861264, 6975806, 217219970, 9541533, 00383719 ####[facility] [address] [place] [address] Cholesterol in VLDL [Mass/Vol] 16 mg/dL Normal 7-40 [facility] Comment on above: Performed By: #### 7 52351953, 43607079, 02684607, 9692987, 3819579, 9567046, 4431723, 682295339, 0307625, 04775996 ####[facility] [address] [place] [address] Triglyceride [Mass/Vol] 80 mg/dL Normal <=149 [facility] Comment on above: Performed By: #### 7 [id number], 22786973, 10263829, 8254352, 8966108, 9030548, 5684865, 345853071, 2429863, 46181102 ####[facility] [address] [place] [address] Physician Orderon 07-20-2022 Physician Order [id number]# 1.00CD:127 Normal [facility] Prolactinon 07-20-2022 Prolactin [Mass/Vol] 7.40 ng/mL Normal 3.34-26.72 [facility] Comment on above: Performed By: #### 7 [id number], 47131063, 22746200, 8062127, 6691111, 7560919, 0465645, 205728227, 2405695, 51528006 ####[facility] [address] [place] [address] TSHon 07-20-2022 TSH Qn 1.22 m[IU]/L Normal 0.34-5.60 [facility] Comment on above: Performed By: #### 7 [id number], 20830031, 80408892, 2956316, 9959117, 2539916, 1374002, 174674208, 7762640, 48801228 ####[facility] [address] [place] [address] Vitamin D 25 Hydroxyon 07-20 25-hydroxyvitamin D3 [Mass/Vol] 23.8 ng/mL Low 30.0-100.0 [facility] Comment on above: Result Comment: Vit culp D deficiency has been defined as a level of serum 25-OH vitamin D less than 20 ng/mL (1,2) by the [place] of [employer] and an Endocrine Society practice guideline. The Endocrine Society further defined vitamin D insufficiency as a level between 21 and 29 ng/mL (2). 1. IOM ([place] of [employer]). 2010. Dietary reference intakes for calcium and D. [place]: The National Academies Press. 2. Cem MF, Bernadine NC, Trudi PRICE, et al. Evaluation, treatment, and prevention of vitamin D deficiency: an Endocrine Society clinical practice guideline. JCEM. 2010; 96 (7):1911-30. Performed By: #### 7 [id number], 63716555, 59204871, 9790119, 6401935, 6793628, 7376298, 580114442, 2278258, 93771122 ####[facility] [address] [place] [address] Physician Orderon 07-19-2022 Physician Order [id number]#1 .00CD:127 Normal [facility] Physician Order [id number]#1 .00CD:127 Normal [facility] Cholesterol [Mass/volume] in Serum or PlasmaOrdered By: Dean Solis on 07-10-2022 Cholesterol [Mass/Vol] 134 mg/dL 140-200 [facility] Comment on above: Chol less than 200 m g/dl low riskChol 201-239 mg/dl borderline riskChol 240 mg/dl and greater high risk Cholesterol in LDL Calc [Mas s/Vol]Ordered By: Dean Solis on 07-10-2022 Cholesterol in LDL [Mass/Vol] 69 mg/dL 0-100 [facility] Comment on above: LDL ATP III CLASSIFI CATIONLDL less than 100 mg/dL OptimalLDL 100-129 mg/dL Near or above optimalLDL 130-159 mg/dL Borderline highLDL 160-189 mg/dL HighLDL greater than 189 mg/dL Very high Cholesterol in VLDL Calc [Ma ss/Vol]Ordered By: Dean Solis on 07-10-2022 Cholesterol in VLDL [Mass/Vol] 12 mg/dL [facility] ECG 12 lead ECGon 07-10-2022 ECG 12 lead ECG [facility] [place] [address] Electrocardiograph Report Signed Patient: Leny Galvez MR#: [id number] 33 : 2005 Acct:[id number] Age/Sex: 17 / F ADM Date: 07/09/22 Loc: Room: [address] [place] [address] Type: ADM IN Attending Dr: Rajesh Solis [...] By Krzysztof Tavera DO 07/10 1847 Normal [facility] Lipid Panelon 07-10-2022 Cholesterol [Mass/Vol] 134 mg/dL Low 140-200 [facility] Comment on above: Result Comment: Chol less than 200 mg/dl low risk Chol 201-239 mg/dl borderline risk Chol 240 mg/dl and greater high risk Performed By: #### L IPID, TSH3 wRFLX, [id number] #### [facility] [address] [id number] [facility] Cholesterol in HDL [Mass/Vol] 53 mg/dL Normal 35-85 [facility] Comment on above: Result Comment: HDL CHOL ATP-III CLASSIFICATION Cardiovascular Risk HDL > or equal to 60 mg/dL LOW HDL < 40 mg/dL HIGH Performed By: #### L IPID, TSH3 wRFLX, [id number] #### [facility] [address] [place] [address] [facility] Cholesterol.total/Chol esterol in HDL [Mass ratio] 2.5 {ratio} Normal <5.0 [facility] Comment on above: Performed By: #### L IPID, TSH3 wRFLX, [id number] #### [facility] [address] [place] [address] [place] LDL Cholesterol,Calculated 69 mg/dL Normal 0-100 [facility] Comment on above: Result Comment: LDL ATP III CLASSIFICATION LDL less than 100 mg/dL Optimal LDL 100-129 mg/dL Near or above optimal LDL 130-159 mg/dL Borderline high LDL 160-189 mg/dL High LDL greater than 189 mg/dL Very high Performed By: #### L IPID, TSH3 wRFLX, [id number] #### [facility] [address] [place] [address] [place] Triglyceride w/Reflex 62 mg/dL Normal 0-149 [facility] Comment on above: Result Comment: TRIG ATP III CLASSIFICATION TRIG less than 150 mg/dL Normal TRIG 150-199 mg/dL Borderline high TRIG 200-500 mg/dL High TRIG greater than 500 mg/dL Very high Standard traceable to the Center for Disease Conrtrol and Prevention (CDC) test method. Performed By: #### L IPID, TSH3 wRFLX, [id number] #### [facility] [address] VLDL CHOLESTEROL 12 mg/dL Normal [facility] Comment on above: Performed By: #### L IPID, TSH3 wRFLX, [id number] #### [facility] [address] Serum or plasma high density lipoprotein (HDL) cholesterol measurementOrdered By: Dean Solis on 07-10-2022 Cholesterol in HDL [Mass/Vol] 53 mg/dL 35-85 [facility] Comment on above: HDL CHOL ATP-III CLA SSIFICATION Cardiovascular RiskHDL > or equal to 60 mg/dL LOWHDL < 40 mg/dL HIGH Serum or plasma total choles terol/high density lipoprotein (HDL) cholesterol mass ratOrdered By: Dean Solis on 07-10-2022 Cholesterol.total/Chol esterol in HDL [Mass ratio] 2.5 {ratio} <5.0 [facility] Thyroid Stim Hormone w/Rflxo n 07-10-2022 Thyroid Stim Hormone w/Rflx 3.34 u[iU]/mL Normal 0.45-5.33 [facility] Comment on above: Performed By: #### L IPID, TSH3 wRFLX, [id number] #### [facility] [address] Thyrotropin [Units/volume] i n Serum or PlasmaOrdered By: Dean Solis on 07-10-2022 TSH Qn 3.34 m[IU]/L 0.45-5.33 [facility] Triglyceride [Mass/volume] i n Serum or PlasmaOrdered By: Dean Solis on 07-10-2022 Triglyceride [Mass/Vol] 62 mg/dL 0-149 [facility] Comment on above: TRIG ATP III CLASSIF ICATIONTRIG less than 150 mg/dL NormalTRIG 150-199 mg/dL Borderline highTRIG 200-500 mg/dL High TRIG greater than 500 mg/dL Very highStandard traceable to the Center for Disease Conrtrol and Prevention (CDC) test method. Vitamin D 25 Hydroxy Totalon 07-10-2022 Vitamin D 25 Hydroxy Total 12.0 ng/mL Low 30-100 [facility] Comment on above: Result Comment: GOOD MIN D STATUS 25(OH)VITAMIN D RANGE (ng/mL) Deficient <20 Insufficient 20 to <30 Sufficient 30 to 100 Reference: Bernadine Ramirez, Trudi PRICE, et al. Evaluation,treatment, and prevention of vitamin D deficiency; an Endocrine Society clinical practice guideline. JCEM. 2010; 96(7):191-. PERFORMED BY: [place] [address] PATHOLOGIST BEZEL CUTTER ROBERT PRADHAN M.D. Performed By: #### L IPID, TSH3 wRFLX, [id number] #### [address] Vitamin D+Metabolites [Mass/ volume] in Serum or PlasmaOrdered By: Dean Solis on 07-10-2022 Vitamin D+Metabolites [Mass/Vol] 12.0 ng/mL 30-100 [facility] Comment on above: VITAMIN D STATUS 25( [place])VITAMIN D RANGE (ng/mL) Deficient <20 Insufficient 20 to <30Sufficient 30 to 100Reference: Bernadine Ramirez, Trudi PRICE, et al. Evaluation,treatment, and prevention of vitamin D deficiency; an Endocrine Society clinical practice guideline. JCEM. 2010; 96(7):1911-30. ACETAMINOPHENon 07-09-2022 Acetaminophen [Mass/Vol] ug/mL Critically low 10.0-30.0 [facility] Comment on above: Performed By: #### C MP, SALYC, ACET #### [facility] [address] [address] [address] Skylar Ramirez CBC AUTO DIFFon 07-09-2022 BASO # 0.1 103/ul Normal 0.0-0.1 [facility] Comment on above: Performed By: #### C BC #### [facility] [address] [place] [address] Dr. Skylar Ramirez Basophils/100 WBC (Bld) 0.6 % Normal 0.2-2.0 [facility] Comment on above: Performed By: #### C BC #### [facility] [address] [place] [address] Dr. Skylar Ramirez EO # 0.1 103/ul Normal 0.0-0.7 [facility] Comment on above: Performed By: #### C BC #### [facility] [address] [place] [address] Dr. Skylar Ramirez Eosinophils/100 WBC (Bld) 1.0 % Normal 0.9-7.0 [facility] Comment on above: Performed By: #### C BC #### [facility] [address] [place] [address] Dr. Skylar Ramirez Erythrocyte distribution width (RBC) [Ratio] 12.6 % Normal 11.0-15.0 [facility] Comment on above: Performed By: #### C BC #### [facility] [address] [place] [address] Dr. Skylar Ramirez Hematocrit (Bld) [Volume fraction] 39.7 % Normal 36.0-48.0 [facility] Comment on above: Performed By: #### C BC #### [facility] [address] [place] [address] Dr. Skylar Ramirez Hemoglobin (Bld) [Mass/Vol] 14.4 g/dL Normal 12.0-16.0 [facility] Comment on above: Performed By: #### C BC #### [facility] [address] [place] [address] Dr. Skylar Ramirez IG # 0.03 10e3/ul Normal 0.00-0.03 [facility] Comment on above: Performed By: #### C BC #### [facility] [address] [place] [address] Dr. Skylar Ramirez IG % 0.4 % Normal 0.0-0.5 [facility] Comment on above: Performed By: #### C BC #### [facility] [address] [place] [address] Dr. Skylar Ramirez LYMPH # 2.2 103/ul Normal 1.2-3.8 [facility] Comment on above: Performed By: #### C BC #### [facility] [address] [place] [address] Dr. Skylar Ramirez Lymphocytes/100 WBC (Bld) 27.4 % Normal 20.5-60.0 [facility] Comment on above: Performed By: #### C BC #### [facility] [address] [place] [address] Dr. Skylar Ramirez MANUAL DIFF REQ NO Normal [facility] Comment on above: Performed By: #### C BC #### [facility] [address] [place] [address] Dr. Skylar Ramirez MCH (RBC) [Entitic mass] 33.6 pg Normal 26.7-34.0 [facility] Comment on above: Performed By: #### C BC #### [facility] [address] [place] [address] Dr. Skylar Ramirez MCHC (RBC) [Mass/Vol] 36.3 g/dL Critically high 29.9-35.2 [facility] Comment on above: Performed By: #### C BC #### [facility] [address] [place] [address] Dr. Skylar Ramirez MCV (RBC) [Entitic vol] 92.5 fL Normal 81.0-99.0 [facility] Comment on above: Performed By: #### C BC #### [facility] [address] [place] [address] Dr. Skylar Ramirez MONO # 0.4 103/ul Normal 0.3-0.8 [facility] Comment on above: Performed By: #### C BC #### [facility] [address] [place] [address] Dr. Skylar Ramirez Monocytes/100 WBC (Bld) 5.5 % Normal 1.7-12.0 [facility] Comment on above: Performed By: #### C BC #### [facility] [address] [place] [address] Dr. Skylar Ramirez NEUT # 5.3 103/ul Normal 1.4-6.5 [facility] Comment on above: Performed By: #### C BC #### [facility] [address] [place] [address] Dr. Skylar Ramirez Neutrophils/100 WBC (Bld) 65.1 % Normal 43.0-75.0 [facility] Comment on above: Performed By: #### C BC #### [facility] [address] [place] [address] Dr. Skylar Ramirez Platelet mean volume (Bld) [Entitic vol] 9.8 fL Normal 9.5-13.5 [facility] Comment on above: Performed By: #### C BC #### [facility] [address] [place] [address] Dr. Skylar Ramirez PLT 316 103/ul Normal 150-450 [facility] Comment on above: Performed By: #### C BC #### [facility] [address] [place] [address] Dr. Skylar Ramirez RBC 4.29 106/ul Normal 4.20-5.40 [facility] Comment on above: Performed By: #### C BC #### [facility] [address] [place] [address] Dr. Skylar Ramirez WBC 8.1 103/ul Normal 4.0-11.0 [facility] Comment on above: Performed By: #### C BC #### [facility] [address] [place] [address] Dr. Skylar Ramirez DRUG SCREEN RAPID (URINE)on 07-09-2022 AMP Negative Normal NEGATIVE [facility] Comment on above: Performed By: #### E TH #### [facility] [address] [place] [address] Dr. Skylar Ramirez BAR Negative Normal NEGATIVE [facility] Comment on above: Performed By: #### E TH #### [facility] [address] [place] [address] Dr. Skylar Ramirez BUP Negative Normal NEGATIVE [facility] Comment on above: Performed By: #### E TH #### [facility] [address] [place] [address] Dr. Skylar Ramirez BZO Negative Normal NEGATIVE [facility] Comment on above: Performed By: #### E TH #### [facility] [address] [place] [address] Dr. Skylar Ramirez RICHIE Negative Normal NEGATIVE [facility] Comment on above: Performed By: #### E TH #### [facility] [address] [place] [address] Dr. Skylar Ramirez CUT-OFFS SEE BELOW Normal [facility] Comment on above: Result Comment: AMP (Amphetamine): 500ng/mL, BAR (Barbituates): 200 ng/mL, BZO (Benzodiazepines): 150 ng/mL, BUP (Buprenorphine): 10 ng/mL, RICHIE (Cocaine): 150 ng/mL, mAMP (Methamphetamine): 500 ng/mL, MTD (Methadone): 200 ng/mL, OPI (Opiates): 100 ng/mL, OXY (Oxycodone): 100 ng/mL, PCP (Phencyclidine): 25 ng/mL, PPX (Propoxyphene): 300 ng/mL, THC (Cannabinoids): 50 ng/mL, TCA (Trycyclic Antidepressants): 300 ng/mL Performed By: #### E TH #### [facility] [address] [place] [address] Dr. Skylar Ramirez DRUG CUT HEADER DRUG CLASS TEST SYSTEM CUT-OFF CONCENTRATIONS ARE FOLLOWS: Normal [facility] Comment on above: Performed By: #### E #### [facility] [address] [place] [address] Dr. Skylar aRmirez mAMP Negative Normal NEGATIVE [facility] Comment on above: Performed By: #### E TH #### [facility] [address] [place] [address] Dr. Skylar Ramirez MTD Negative Normal NEGATIVE [facility] Comment on above: Performed By: #### E TH #### [facility] [address] [place] [address] Dr. Skylar Ramirez OPI Negative Normal NEGATIVE [facility] Comment on above: Performed By: #### E TH #### [facility] [address] [place] [address] Dr. Skylar Ramirez OXY Negative Normal NEGATIVE [facility] Comment on above: Performed By: #### E TH #### [facility] [address] [place] [address] Dr. Skylar Ramirez PCP Negative Normal NEGATIVE [facility] Comment on above: Performed By: #### E TH #### [facility] [address] [place] [address] Dr. Skylar Ramirez PPX Negative Normal NEGATIVE [facility] Comment on above: Performed By: #### E TH #### [facility] [address] [place] [address] Dr. Skylar Ramirez TCA Negative Normal NEGATIVE [facility] Comment on above: Performed By: #### E TH #### [facility] [address] [place] [address] Dr. Skylar Ramirez THC Positive Abnormal NEGATIVE [facility] Comment on above: Performed By: #### E TH #### [facility] [address] [place] [address] Dr. Skylar Ramirez ER URINE PROFILEon 3 Bilirubin Ql (U) Negative Normal NEGATIVE [facility] Comment on above: Performed By: #### D MARIBETH, ERUR #### [facility] [address] [place] [address] Dr. Skylar Ramirez Clarity (U) CLEAR Normal CLEAR [facility] Comment on above: Performed By: #### D MARIBETH, ERUR #### [facility] [address] [place] [address] Dr. Skylar Ramirez Color (U) LT. YELLOW Normal YELLOW [facility] Comment on above: Performed By: #### D MARIBETH, ERUR #### [facility] [address] [place] [address] Dr. Skylar Ramirez ERUAHD A micrscopic examination will be performed if indicated. Normal [facility] Comment on above: Performed By: #### D MARIBETH, ERUR #### [facility] [address] [address] [address] Skylar Ramirez Glucose Ql (U) Negative Normal NEGATIVE [facility] Comment on above: Performed By: #### D MARIBETH, ERUR #### [facility] [address] [place] [address] Dr. Skylar Ramirez Hemoglobin Ql (U) Negative Normal NEGATIVE [facility] Comment on above: Performed By: #### D MARIBETH, ERUR #### [facility] [address] [place] [address] Dr. Skylar Ramirez Ketones Ql (U) Negative Normal NEGATIVE [facility] Comment on above: Performed By: #### D MARIBETH, ERUR #### [facility] [address] [place] [address] Dr. Skylar Ramirez LEUKOCYTES Negative Normal NEGATIVE [facility] Comment on above: Performed By: #### Jessica STAHL, ERUR #### [facility] [address] [place] [address] Dr. Skylar Ramirez Nitrite Ql (U) Negative Normal NEGATIVE [facility] Comment on above: Performed By: #### Jessica STAHL, ERUR #### [facility] [address] [place] [address] Dr. Skylar Ramirez pH (U) 6.0 [pH] Normal 5-9 [facility] Comment on above: Performed By: #### Jessica STAHL, ERUR #### [facility] [address] [place] [address] Dr. Skylar Ramirez SPEC GRAVITY <=1.005 Abnormal 1.005-<=1.02 5 [facility] Comment on above: Performed By: #### Jessica STAHL, ERUR #### [facility] [address] [place] [address] Dr. Skylar Ramirez UA PROTEIN Negative Normal NEGATIVE/ TRACE [facility] Comment on above: Performed By: #### Jessica STAHL, ERUR #### [facility] [address] [place] [address] Dr. Skylar Ramirez UR MICRO IND NOT INDICATED Normal [facility] Comment on above: Performed By: #### D MARIBETH, ERUR #### [facility] [address] [place] [address] Dr. Skylar Ramirez Urobilinogen Qn (U) 0.2 {Evens'U}/dL Normal 0.2 - 1. 0 [facility] Comment on above: Performed By: #### D MARIBETH, ERUR #### [facility] [address] [place] [address] Dr. Skylar Ramirez ETHANOL (BLD ALC)on 07-10-19 23 ALC NOTE NOTE: 80 mg/dl is th e legal limit for a blood alcohol level Normal [facility] Comment on above: Performed By: #### E TH #### [facility] [address] [place] [address] Dr. Skylar Ramirez Ethanol [Mass/Vol] 90 mg/dL Normal [facility] Comment on above: Performed By: #### E TH #### [facility] [address] [place] [address] Dr. Skylra Ramirez ALC NOTE NOTE: 80 mg/dl is th e legal limit for a blood alcohol level Normal [facility] Comment on above: Performed By: #### E TH #### [facility] [address] [place] [address] Dr. Skylar Ramirez Ethanol [Mass/Vol] 116 mg/dL Normal [facility] Comment on above: Performed By: #### E TH #### [facility] [address] [place] [address] Dr. Skylar Ramirez PREG HCG QUALon 07-09-2022 , QUAL Negative Normal NEGATIVE [facility] Comment on above: Performed By: #### P REG #### [facility] [address] [place] [address] Dr. Skylar Ramirez PROF 14(COMP METB)on 023 Albumin [Mass/Vol] 4.4 g/dL Normal 3.4-5.0 [facility] Comment on above: Performed By: #### C MP, SALYC, ACET #### [facility] [address] [address] [address] Skylar Ramirez Albumin/Globulin [Mass ratio] 1.5 {ratio} Normal [facility] Comment on above: Performed By: #### C SERINA GUPTA, ACET #### [facility] [address] [address] [address] Skylar Ramirez ALP [Catalytic activity/Vol] 65 U/L Normal 46-116 [facility] Comment on above: Performed By: #### C ENZO GUPTAYC, ACET #### [facility] [address] [address] [address] Skylar Ramirez ALT [Catalytic activity/Vol] 16 U/L Normal 14-59 [facility] Comment on above: Performed By: #### C SERINA GUPTA, ACET #### [facility] [address] [address] [address] Skylar Ramirez Anion gap [Moles/Vol] 14.2 mmol/L Normal [facility] Comment on above: Performed By: #### C ENZO GUPTAYC, ACET #### [facility] [address] [address] [address] Skylar Ramirez AST [Catalytic activity/Vol] 14 U/L Critically low 15-37 [facility] Comment on above: Performed By: #### C SERINA GUPTA, ACET #### [facility] [address] [address] [address] Skylar Ramirez Bilirubin [Mass/Vol] 0.6 mg/dL Normal 0.2-1.0 [facility] Comment on above: Performed By: #### C CANDY SALYC, ACET #### [facility] [address] [address] [address] Skylar Ramirez Calcium [Mass/Vol] 9.1 mg/dL Normal 8.5-10.1 [facility] Comment on above: Performed By: #### C CANDY, SALYC, ACET #### [facility] [address] [address] [address] Skylar Ramirez Chloride [Moles/Vol] 106 mmol/L Normal 98-107 [facility] Comment on above: Performed By: #### C MP, SALYC, ACET #### [facility] [address] [address] [address] Skylar Ramirez CO2 [Moles/Vol] 26.0 mmol/L Normal 21.0-32.0 [facility] Comment on above: Performed By: #### C MP, SALYC, ACET #### [facility] [address] [address] [address] Skylar Ramirez Creatinine [Mass/Vol] 0.78 mg/dL Normal 0.55-1.02 [facility] Comment on above: Performed By: #### C MP, SALYC, ACET #### [facility] [address] [address] [address] Skylar Ramirez EGFR-AF PARAGUAYAN >60 Normal >=60 [facility] Comment on above: Performed By: #### C MP, SALYC, ACET #### [facility] [address] [address] [address] Skylar Ramirez EGFR-NON AF PARAGUAYAN >60 Normal >=60 [facility] Comment on above: Performed By: #### C MP, SALYC, ACET #### [facility] [address] [address] [address] Skylar Ramirez Globulin (S) [Mass/Vol] 3.0 g/dL Normal [facility] Comment on above: Performed By: #### C MP, SALYC, ACET #### [facility] [address] [address] [address] Skylar Ramirez Glucose [Mass/Vol] 129 mg/dL Critically high 74-106 [facility] Comment on above: Performed By: #### C MP, SALYC, ACET #### [facility] [address] [address] [address] Skylar Ramirez Potassium [Moles/Vol] 3.2 mmol/L Critically low 3.5-5.1 [facility] Comment on above: Performed By: #### C MP, SALYC, ACET #### [facility] [address] [address] [address] Skylar Ramirez Protein [Mass/Vol] 7.4 g/dL Normal 6.4-8.2 [facility] Comment on above: Performed By: #### C SERINA GUPTA, ACET #### [facility] [address] [place] [address] Dr. Skylar Ramirez Sodium [Moles/Vol] 143 mmol/L Normal 136-145 [facility] Comment on above: Performed By: #### C SERINA GUPTA, ACET #### [facility] [address] [place] [address] Dr. Skylar Ramirez Urea nitrogen [Mass/Vol] 6.0 mg/dL Critically low 6.4-19.3 [facility] Comment on above: Performed By: #### C SERINA GUPTA, ACET #### [facility] [address] [place] [address] Dr. Skylar Ramirez Urea nitrogen/Creatinine [Mass ratio] 7.7 mg/mg Normal [facility] Comment on above: Performed By: #### C SERINA GUPTA, ACET #### [facility] [address] [place] [address] Dr. Skylar Ramirez SALICYLATEon 07-09-2022 SALICYLATE <2.8 Normal <=19.9 [facility] Comment on above: Performed By: #### C SERINA GUPTA, ACET #### [facility] [address] [place] [address] Dr. Skylar Ramirez XR HAND RT MIN [...] JJ SILVA Date: 2022-07-09 18:12 Normal [facility] MICRO OTHER TESTSOrdered By: Jose Clay [...] spec) Detected Critically abnormal NOT DETECTED [facility] Comment on above: Result Comment: This test is not yet approved or cleared by the [place] FDA. When there are no FDA-approved or cleared tests available, and other criteria are met, FDA can make tests available under an emergency access mechanism called an Emergency Use Authorization (EUA). The EUA for this test is supported by the Research Neuropsychologist of Health and Human Service's (HHS's) declaration [...] used). Performed By: #### E TH #### [facility] [address] [place] [address] Dr. Skylar Ramirez Covid-19 PCR (CVDTBH)on SARS-CoV-2 (COVID-19) RNA ANUP+probe Ql (Unsp spec) Not detected Normal NOT DETECTED [facility] Comment on above: Result Comment: This test is not yet approved or cleared by the [place] FDA. When there are no FDA-approved or cleared tests available, and other criteria are met, FDA can make tests available under an emergency access mechanism called an Emergency Use Authorization (EUA). The EUA for this test is supported by the [place] of Health and Human Service's (HHS's) declaration [...] SARS-CoV-2. Performed By: #### C VDTB #### [facility] [address] [place] [address] Dr. Skylar Ramirez CBC AUTO DIFFon 08-17-2021 BASO # 0.1 103/ul Normal 0.0-0.1 [facility] Comment on above: Performed By: #### E TH #### [facility] [address] [place] [address] Dr. Skylar Ramirez Basophils/100 WBC (Bld) 0.6 % Normal 0.2-2.0 [facility] Comment on above: Performed By: #### E TH #### [facility] [address] [place] [address] Dr. Skylar Ramirez EO # 0.2 103/ul Normal 0.0-0.7 [facility] Comment on above: Performed By: #### E TH #### [facility] [address] [place] [address] Dr. Skylar Ramirez Eosinophils/100 WBC (Bld) 2.0 % Normal 0.9-7.0 [facility] Comment on above: Performed By: #### E TH #### [facility] [address] [place] [address] Dr. Skylar Ramirez Erythrocyte distribution width (RBC) [Ratio] 13.2 % Normal 11.0-15.0 [facility] Comment on above: Performed By: #### E TH #### [facility] [address] [place] [address] Dr. Skylar Ramirez Hematocrit (Bld) [Volume fraction] 38.4 % Normal 36.0-48.0 [facility] Comment on above: Performed By: #### E TH #### [facility] [address] [place] [address] Dr. Skylar Ramirez Hemoglobin (Bld) [Mass/Vol] 13.1 g/dL Normal 12.0-16.0 [facility] Comment on above: Performed By: #### E TH #### [facility] [address] [place] [address] Dr. Skylar Ramirez IG # 0.02 10e3/ul Normal 0.00-0.03 [facility] Comment on above: Performed By: #### E #### [facility] [address] [place] [address] Dr. Skylar Ramirez IG % 0.2 % Normal 0.0-0.5 [facility] Comment on above: Performed By: #### E #### [facility] [address] [place] [address] Dr. Skylar Ramirez LYMPH # 3.0 103/ul Normal 1.2-3.8 [facility] Comment on above: Performed By: #### E #### [facility] [address] [place] [address] Dr. Skylar Ramirez Lymphocytes/100 WBC (Bld) 31.8 % Normal 20.5-60.0 [facility] Comment on above: Performed By: #### E #### [facility] [address] [place] [address] Dr. Skylar Ramirez MANUAL DIFF REQ NO Normal [facility] Comment on above: Performed By: #### E TH #### [facility] [address] [place] [address] Dr. Skylar Ramirez MCH (RBC) [Entitic mass] 32.0 pg Normal 26.7-34.0 [facility] Comment on above: Performed By: #### E TH #### [facility] [address] [place] [address] Dr. Skylar Ramirez MCHC (RBC) [Mass/Vol] 34.1 g/dL Normal 29.9-35.2 [facility] Comment on above: Performed By: #### E TH #### [facility] [address] [place] [address] Dr. Skylar Ramirez MCV (RBC) [Entitic vol] 93.7 fL Normal 81.0-99.0 [facility] Comment on above: Performed By: #### E TH #### [facility] [address] [place] [address] Dr. Skylar Ramirez MONO # 0.7 103/ul Normal 0.3-0.8 [facility] Comment on above: Performed By: #### E TH #### [facility] [address] [place] [address] Dr. Skylar Ramirez Monocytes/100 WBC (Bld) 7.6 % Normal 1.7-12.0 [facility] Comment on above: Performed By: #### E TH #### [facility] [address] [place] [address] Dr. Skylar Ramirez NEUT # 5.4 103/ul Normal 1.4-6.5 [facility] Comment on above: Performed By: #### E TH #### [facility] [address] [place] [address] Dr. Skylar Ramirez Neutrophils/100 WBC (Bld) 57.8 % Normal 43.0-75.0 [facility] Comment on above: Performed By: #### E TH #### [facility] [address] [place] [address] Dr. Skylar Ramirez Platelet mean volume (Bld) [Entitic vol] 10.9 fL Normal 9.5-13.5 [facility] Comment on above: Performed By: #### E TH #### [facility] [address] [place] [address] Dr. Skylar Ramirez PLT 275 103/ul Normal 150-450 [facility] Comment on above: Performed By: #### E TH #### [facility] [address] [place] [address] Dr. Skylar Ramirez RBC 4.10 106/ul Critically low 4.20-5.40 [facility] Comment on above: Performed By: #### E TH #### [facility] [address] [place] [address] Dr. Skylar Ramirez WBC 9.3 103/ul Normal 4.0-11.0 [facility] Comment on above: Performed By: #### E TH #### [facility] [address] [place] [address] Dr. Skylar Ramirez FREE T3on 08-17-2021 FREE T3 2.08 pg/mlL Critically low 2.91-4.70 [facility] Comment on above: Performed By: #### E TH #### [facility] [address] [place] [address] Dr. Skylar Ramirez FREE T4on 08-17-2021 Free T4 [Mass/Vol] 0.93 ng/dL Normal 0.78-1.34 [facility] Comment on above: Performed By: #### E #### [facility] [address] [place] [address] Dr. Skylar Ramirez PROF 14(COMP METB)on 022 Albumin [Mass/Vol] 4.4 g/dL Normal 3.4-5.0 [facility] Comment on above: Performed By: #### E TH #### [facility] [address] [place] [address] Dr. Skylar Ramirez Albumin/Globulin [Mass ratio] 1.6 {ratio} Normal [facility] Comment on above: Performed By: #### E TH #### [facility] [address] [place] [address] Dr. Skylar Ramirez ALP [Catalytic activity/Vol] 45 U/L Critically low 46-116 [facility] Comment on above: Performed By: #### E TH #### [facility] [address] [place], [place] [id number] Dr. Skylar Ramirez ALT [Catalytic activity/Vol] 14 U/L Normal 14-59 [facility] Comment on above: Performed By: #### E TH #### [facility] [address] [place] [address] Dr. Skylar Ramirez Anion gap [Moles/Vol] 13.7 mmol/L Normal Th [facility] Comment on above: Performed By: #### E TH #### [facility] [address] [place] [address] Dr. Skylar Ramirez AST [Catalytic activity/Vol] 8 U/L Critically low 15-37 [facility] Comment on above: Performed By: #### E TH #### [facility] [address] [place] [address] Dr. Skylar Ramirez Bilirubin [Mass/Vol] 1.2 mg/dL Critically high 0.2-1.0 [facility] Comment on above: Performed By: #### E TH #### [facility] [address] [place] [address] Dr. Skylar Ramirez Calcium [Mass/Vol] 8.7 mg/dL Normal 8.5-10.1 [facility] Comment on above: Performed By: #### E TH #### [facility] [address] [place] [address] Dr. Skylar Ramirez Chloride [Moles/Vol] 104 mmol/L Normal 98-107 [facility] Comment on above: Performed By: #### E TH #### [facility] [address] [place] [address] Dr. Skylar Ramirez CO2 [Moles/Vol] 26.7 mmol/L Normal 21.0-32.0 [facility] Comment on above: Performed By: #### E TH #### [facility] [address] [place] [address] Dr. Skylar Ramirez Creatinine [Mass/Vol] 0.83 mg/dL Normal 0.55-1.02 [facility] Comment on above: Performed By: #### E TH #### [facility] [address] [place] [address] Dr. Skylar Ramirez EGFR-AF PARAGUAYAN >60 Normal >=60 [facility] Comment on above: Performed By: #### E TH #### [facility] [address] [place] [address] Dr. Skylar Ramirez EGFR-NON AF PARAGUAYAN >60 Normal >=60 [facility] Comment on above: Performed By: #### E TH #### [facility] [address] [address] [address] Skylar Ramirez Globulin (S) [Mass/Vol] 2.8 g/dL Normal [facility] Comment on above: Performed By: #### E TH #### [facility] [address] [address] [address] Skylar Ramirez Glucose [Mass/Vol] 111 mg/dL Critically high 74-106 [facility] Comment on above: Performed By: #### E TH #### [facility] [address] [place] [address] Dr. Skylar Ramirez Potassium [Moles/Vol] 3.4 mmol/L Critically low 3.5-5.1 [facility] Comment on above: Performed By: #### E #### [facility] [address] [place] [address] Dr. Skylar Ramirez Protein [Mass/Vol] 7.2 g/dL Normal 6.1-8.2 [facility] Comment on above: Performed By: #### E #### [facility] [address] [address] [address] Skylar Ramirez Sodium [Moles/Vol] 141 mmol/L Normal 136-145 [facility] Comment on above: Performed By: #### E #### [facility] [address] [address] [address] Skylar Ramirez Urea nitrogen [Mass/Vol] 10.0 mg/dL Normal 6.4-19.3 [facility] Comment on above: Performed By: #### E TH #### [facility] [address] [address] [address] Skylar Ramirez Urea nitrogen/Creatinine [Mass ratio] 12.0 mg/mg Normal [facility] Comment on above: Performed By: #### E TH #### [facility] [address] [address] [address] Skylar Ramirez TSHon 08-17-2021 TSH 0.755 uIU/mL Normal 0.430-3.750 [facility] Comment on above: Performed By: #### E TH #### [facility] [address] [address] [address] Skylar Ramirez TSH RANGE SEE BELOW Normal [facility] Comment on above: Result Comment: <0.3 4 UIU/ml HYPERTHYROID 0.34-5.60 UIU/ml EUTHYROID >5.60 UIU/ml HYPOTHYROID Performed By: #### E TH #### [facility] [address] [place] [address] Dr. Skylar Ramirez Vital Signs Date Time Vital Sign Value Performing Clinician Facility 07-12-2022 07:30-0400 Body temperature 97.7 [degF] MD Latisha See Work Phone: [facility] 07-12-2022 07:30-0400 Diastolic blood pressure 67 mm[Hg] MD Latisha See Work Phone: [facility] 07-12-2022 07:30-0400 Heart rate 63 /min MD Latisha See Work Phone: [facility] 07-12-2022 07:30-0400 SaO2% (BldA) [Mass fraction] 98 % MD Latisha See Work Phone: [facility] 07-12-2022 07:30-0400 Systolic blood pressure 119 mm[Hg] MD Latisha See Work Phone: [facility] 07-11-2022 20:12-0400 Respiratory rate 16 /min MD Latisha See Work Phone: [facility] 07-11-2022 15:25-0400 Body height 162.56 cm MD Latisha See Work Phone: [facility] 07-10-2022 09:00-0400 Body weight 80.28 kg MD Latisha See Work Phone: [facility] 04-11-2022 12:01-0500 Body temperature 98.42 [degF] Guillermo Leahy [facility] 04-11-2022 12:01-0500 bodymassindex 1.18 Guillermo Leahy [facility] Comment on above: Result Comment: ^~:!ZScore [facility] 04-11-2022 12:01-0500 Diastolic blood pressure 87 mm[Hg] Guillermo Leahy [facility] 04-11-2022 12:01-0500 Heart rate 90 /min Guillermo Leahy [facility] 04-11-2022 12:01-0500 Height/Length Percentile 76.91 Guillermo Leahy [facility] Comment on above: Result Comment: ^~:!Percentile [facility] 04-11-2022 12:01-0500 Height/Length Z-Score 0.74 Guillermo Leahy [facility] Comment on above: Result Comment: ^~:![employer]Score [facility] 04-11-2022 12:01-0500 Respiratory rate 20 /min Guillermo Leahy [facility] 04-11-2022 12:01-0500 SaO2% (BldA) [Mass fraction] 100 % Guillermo Leahy [facility] 04-11-2022 12:01-0500 Systolic blood pressure 137 mm[Hg] Guillermo Leahy [facility] 04-11-2022 12:01-0500 weight 1.38 Guillermo Cantue [facility] Comment on above: Result Comment: [facility] 12:01-0500 Weight Percentile 91.69 % Guillermo Leahy [facility] Comment on above: Result Comment: ^~:!Percentile Source -[facility] 03-23-2022 01:05-0500 Body temperature 98.06 [degF] Dino Mccollum [facility] 03-23-2022 01:05-0500 bodymassindex 1.47 Dino Mccollum [facility] Comment on above: Result Comment: ^~:![facility] 03-23-2022 01:05-0500 Diastolic blood pressure 79 mm[Hg] Dino Landerosen [facility] 03-23-2022 01:05-0500 Heart rate 83 /min Dino Mccollum [facility] 03-23-2022 01:05-0500 Height/Length Percentile 42.45 Dino Mccollum [facility] Comment on above: Result Comment: ^~:!Percentile Source [facility] 03-23-2022 01:05-0500 Height/Length Z-Score -0.19 Dino Mccollum [facility] Comment on above: Result Comment: ^~:![employer] [facility] 03-23-2022 01:05-0500 Respiratory rate 16 /min iDno Landerosen [facility] 03-23-2022 01:05-0500 SaO2% (BldA) [Mass fraction] 99 % Lissetten Letien [facility] 03-23-2022 01:05-0500 Systolic blood pressure 117 mm[Hg] Lissetten Letien [facility] 03-23-2022 01:05-0500 weight 1.42 Lissetten Letien [facility] Comment on above: Result Comment: ^~:!ZScore Source -[facility] 03-23-2022 01:05-0500 Weight Percentile 92.21 % Dino Mccollum [facility] Comment on above: Result Comment: ^~:!Percentile Source -C DC Encounters Encounter Date Encounter Type Care Provider Facility Start: 06-20-2023 ambulatory Socorro L Max Facility: [facility] [place] [facility] Start: 05-23-2023 End: 05-24-2023 ambulatory ALLI Leah REYESCINDI Facility:[facility] Start: 05-18-2023 ambulatory Dunia Ibeth Facility: [facility] Start: 10-03-2022 End: 10-03-2022 Emergency department patient visit Guillermo Leahy [place] [place]: 09-20-2022 ambulatory Abdfeleciaa Will Fa cility:[facility] Start: 08-03-2022 End: 08-11-2022 Pre-admission assessment Dunia J Ibeth [facility] Start: 07-20-2022 End: 07-21-2022 ambulatory Dunia J Ibeth [place] [place] Start: 07-20-2022 End: 07-20-2022 Patient encounter procedure Dunia J Ibeth [facility] Start: 07-19-2022 End: 07-20-2022 ambulatory Dunia J Ibeth [place] [place] Start: 07-19-2022 End: 07-19-2022 Lab Drop off Dunia J Ibeth [facility] Start: 07-10-2022 End: 07-12-2022 Evaluation and management of inpatient Abdelraryanna Will Facility:[facility] Start: 07-09-2022 End: 07-12-2022 Evaluation and management of inpatient MD Latisha See Work Phone: [facility] Work Phone: Start: 07-09-2022 End: 07-10-[address] LATISHA SEE . Facility:[facility] Start: 04-11-2022 End: 04-11-2022 Emergency department patient visit Guillermo Leahy [facility] Start: 03-23-2022 End: 03-23-2022 Emergency department patient visit Dino Mccollum [facility] Start: 02-28-2022 End: 02-28-2022 ambulatory Jack Khan Other [employer] Other Start: 02-28-2022 FQ visit new patient Jack Khan [facility] Start: 02-24-2022 End: 02-24-[address] LATISHA SEE . Facility:[facility] Start: 11-25-2021 End: 11-25-2021 ambulatory DR LATISHA SEE . Facility:[facility] Start: 11-22-2021 End: 11-22-[address] LATISHA SEE . Facility:[facility] Start: 09-09-2021 End: 09-10-[address] LATISHA SEE . Facility:[facility] Start: 08-17-2021 End: 08-18-[address] LATISHA SEE . Facility:[facility] Plan of Treatment Date Care Activity Detail Author Start: 07-12-2022 [facility] Start: 07-09-2022 Referral to Examining Officer [facility] Start: 07-09-2022 Sleep disorder assessment [facility] Start: 07-09-2022 Hospital admission [facility] Patient Education Depression, Ad ult (DC) [facility] Behavior[facility] Health DC Instructions [facility] Work Phone: Patient referral [facility] Work Phone: Immunizations Immunization Date Immunization Notes Care Provider Fa basil 07-11-2022 influenza, injectabl e, quadrivalent, preservative free MD Latisha See Work Phone: [facility] Payers Date Payer Category Payer Self-pay 2003 Unknown [id number] 2.16.84 [id number] 2003 Unknown [id number] 2.16.84 [id number] 2003 Unknown [id number] 2.16.84 [id number] 2003 Unknown [id number] 2.16.84 [id number] 2003 Unknown [id number] 2.16.84 [id number] 2003 Unknown [id number] 2.16.8 [id number] 2003 Unknown [id number] 2.16.8 [id number] 2003 Unknown [id number] 2.16.8 [id number] 2003 Unknown [id number] 2.16.8 [id number] 2003 Unknown [id number] 2.16.8 [id number] 2003 Unknown [id number] 2.16.8 [id number] 1981 Unknown [id number] 2.16.84 [id number] 1959 Unknown [id number] 2.1 [id number] 1959 Unknown [id number] Unknown HCAP/HFA/FAP Active [id number] Unknown [id number] 2.16.8 [id number] Unknown [id number] 2.16.8 [id number] Social History Date Type Detail Facility Sex Assigned At [facility] Tobacco smoking status No Smokin g Status Entered [facility] Start: 07-10-2022 Tobacco smoking stat NHIS Smoker (finding) [facility] Start: 2005 Sex Assigned At Female F [facility] Goals Date Patient Goal Desired Activity /State Functional Status Date Assessment Result Facility 07-12-2022 Functional status Patient at Baseline [facility] Work Phone: 04-11-2022 Functional Status N/A [facility] 03-23-2022 Functional Status Yes [facility] Mental Status Date Assessment Result Facility 07-12-2022 Cognitive function Cognitive Sta tus Patient is Progressing Toward Baseline [facility] Work Phone: Clinical Notes 09-09-2021 to 07-12-2022 Note Date & Type Note Facility 07-12-2022 Discharge summary Note Date/Time July 12, 2022 9:50am [facility] [address] [place] [address] Discharge Summary Signed Patient: Leny Galvez MR#: [id number] : 2005 Acct:[id number] Age/Sex: 17 / F Adm Date: 3 Loc: Room: [address] [place] [address]: Rajesh Solis MD Copies to: [...] patient punched a tree, and x-ray from [facility] was negative for fracture. 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 (insert date/time here) Intake: (Insert date/time here) Please bring a copy of your photo ID, insurance card, and proof of household income.? Psychiatry: (Insert date/time here) Group: (Insert date/time here ) ) Latisha See MD [Primary Care Provider] - Documented By: Dean Solis MD [id number] Signed By: <Electronically signed by Dean Slois MD> 07/12/22 0950 [facility] Work Phone: 1(341) 688-457603-28-2023 Progress note Author Dean gutierrez [facility] July 11, 2022 8:55am Note Date/Time July 11, 2022 8:5 5am [facility] [address] [place] [address] Psychiatry Progress Note Signed Patient: Leny Galvez MR#: [id number] : 2005 Acct:[id number] Age/Sex: 17 / F Adm Date: 3 Loc: 1S Room: [address] [place] [address] Type : ADM IN Attending Dr: Rajesh [...] changes Documented By: Dean Solis MD 3 [id number] Signed By: <Electronically signed by Dean Solis MD> 07/11/22 0855 [facility] Work Phone: 1(430) 528-581503-28-2023 History and physical note Author Dean gutierrez [facility] July 11, 2022 8:51am Note Date/Time July 11, 2022 8:5 1am [facility] [address] [place] [address] Psychiatry H&P Signed Patient: Leny Galvez MR#: [id number] : 2005 Acct:[id number] Age/Sex: 17 / F Adm Date: 3 Loc: 1S Room: [address] [place] [address] Type: ADM IN Attending Dr: Rajesh Solis [...] patient punched a tree, and x-ray from [facility] was negative for fracture. The patient [...] signed by Dean Solis MD> 07/11/22 0851 [facility] Work Phone: [phone] 537-197112-27-2022 Hospital Discharge instructions Patient Education 04/11/2022 12:35:07 Hemorrhoids, Skmo-cx-Vxjl Hemorrhoids Hemorrhoids are swollen veins that may [...] 3 times a day. General instructions Take vhey-whv-ydgvylc and prescription medicines only as told by [...] 01/09/2009 Document Revised: 04/10/2019 Document Reviewed: 08/22/2018 [employer] Patient Education 2020 Better Weekdays. Follow Up Care 04/11/2022 11:59:16 With:Rodolfo COOK Address: [address] [place], [place] [id number]- Business (1) When:04/14/2022 12:28:41 Comments:Follow-up with Dr. Cook for further evaluation of your hemorrhoids. With:LATISHA MENDOZAIGHT Address: [address] [place] [address] [place] [address] Business (1) When:04/14/2022 12:28:33 Comments:Follow-up with your primary care provider in 3 to 5 days. If symptoms worsen, do not improve, or new symptoms arise please report back to emergency department for further evaluation. [facility]12-08-2022 Evaluation + Plan noteExtracted from: Title:ED [...] PCR Influenza A&B Ag Rapid [place] Antigen [place] [place] Rapid Strep w/rfx [facility]12-08-2022 Hospital Discharge instructions Patient Education 03/23/2022 02:03:19 Upper Respiratory Infection, Adult, Tlpn-sy-Bgez Upper Respiratory Infection, Adult An upper respiratory [...] and other clear broths. General instructions Take xjkv-tla-kglndvc and prescription medicines only as told by [...] not have soap and water, use hand carbon paper coating machine setter. Avoid touching your mouth, face, eyes, or [...] get better within 7 10 days. Take dlcu-jqt-xzudsnn and prescription medicines only as told by your doctor. This information is not intended to replace advice given to you by your health care provider. Make sure you discuss any questions you have with your health care provider. Document Released: 09/18/2008 Document Revised: 04/10/2019 Document Reviewed: 11/23/2017 [employer] Patient Education [facility] Follow Up Care 03/23/2022 01:03:44 With:LATISHA SEE Address: [address] [place] [id number] Business (1) When:03/26/2022 Comments:You can take the cough medication every 6 hours as needed for cough. Use Motrin, Tylenol every 6 hours as needed for pain. Please follow-up with your primary care doctor next 2 to 3 days. Please return to the ED for any new or worsening symptoms. [facility]11-15-2022 Evaluation note* Encounter Date Diagnosis Assessment [...] and elevate to decrease pain and swelling. [employer] Other 11-11-2022 NotePROCEDURE: XR HAND RT MIN [...] Electronically authenticated by: SILVANA AVERY Date: 2022-02-24 12:40[facility]11-11-2022 NotePROCEDURE: XR HAND RT MIN 3V, XR [...] Electronically authenticated by: SILVANA AVERY Date: 2022-02-24 12:40[facility]05-27-2022 NoteEEG Procedure Date:09/09/2021 CLINICAL HISTORY: This is [...] evidence of epileptiform activity. Please correlate clinically.[facility] Future Appointments Appointment Date:07/21/2022 02:30:00 PM Scheduled Provider: Location:[facility] Appointment Type:US Abdominal/Pelvis ([facility]) Diagnostic Tests Pending * Chlamydia/Gonococcus, ANUP 07/19/22 Future Scheduled Tests Radiology* US Pelvis Non-OB Complete 07/21/22 * US Transvaginal Non-OB 07/21/22 [facility] Future Appointments Appointment Date:07/21/2022 02:30:00 PM Scheduled Provider: [facility] Type:US Abdominal/Pelvis ([facility]) Diagnostic Tests Pending * DHEAS 07/20/22 * FSH and LH 07/20/22 * Insulin Level Total 07/20/22 * Testosterone Level Total 07/20/22 Future Scheduled Tests Radiology* US Pelvis Non-OB Complete 07/21/22 * US Transvaginal Non-OB 07/21/22 [facility] Diagnosis Onset Date Resolution Status Major depressive disorder, recurrent, moderate acute Suicidal ideation acute [facility] Work Phone: History general Narrative - Reported* Type Description Date Medical History right hand injury [facility] Other Hospital course Narrative No data available for this section [facility] Additional Instructions Regular diet No [facility] Work Phone: Hospital Discharge instructions No data available for this section [facility] No data available for this section [facility] Summary Purpose Family History No Family [...] DATE CREATED AUTHOR 07/14/2022 [facility] DATE CREATED AUTHOR AUTHOR'S ORGANIZ ATION 01/07/2023 [facility] DATE CREATED AUTHOR AUTHOR'S ORGANIZ ATION 05/24/2023 [facility] FOR RECORDS PERTAINING TO PATIENTS WHO ARE [...] BE BASED ON THE PRIMARY CLINICAL RECORDS. [facility] [employer] provides no warranty or guarantee of the accuracy or completeness of information in this document.
--- NOTE | 2023-06-17 18:58 | ED.URI1 ---
HPI - URI/Sore Throat General Chief Complaint: Upper Respiratory Infection Stated Complaint: Sore Throat Time Seen by Provider: 06/17/23 18:42 Source: patient Limitations: no limitations History of Present Illness HPI Narrative: Patient is a 18-year-old female presents to the ER with concerns of persistent sore throat,Here on 06/01, strep negative, throat culture negative. Patient notes symptoms persist, painful swallowing but still able to swallow, no measurable fever. Patient had a negative test 5 days ago but states she is late on starting her period. She denies any congestion, does note some ear pain and there is been no cough. Patient notes generalized fatigue since symptoms started over a week and a half ago. Patient appears nontoxic in no acute distress. MD elicited complaint: Reports sore throat Consistency: Reports constant Severity: moderate Able to tolerate fluids by mouth: Yes Treatments prior to arrival: Reports none Related Data Home Medications Medication Instructions Recorded Confirmed cholecalciferol (vitamin D3) 1,250 50,000 unit PO QWEEK 01/18/23 02/02/23 mcg (50,000 unit) capsule escitalopram oxalate 10 mg tablet 20 mg PO DAILY 01/18/23 06/17/23 trazodone 50 mg tablet mg 06/17/23 Previous Rx's Medication Instructions Recorded ibuprofen 600 mg tablet 600 mg PO TID PRN pain #30 tabs 02/02/23 ondansetron HCl 4 mg tablet 4 mg PO Q6H PRN nausea and 02/02/23 vomiting #12 tabs ondansetron 4 mg disintegrating 4 mg PO Q4H PRN nausea and 06/01/23 tablet vomiting 3 days #6 tabs cephalexin 500 mg capsule 500 mg PO BID 10 days #20 caps 06/17/23 Allergies Allergy/AdvReac Type Severity Reaction Status Date / Time No Known Drug Allergies Allergy Verified 06/01/23 11:55 Review of Systems ROS Constitutional Denies: fever, chills or change in weight Eyes Denies: change in vision or blurry vision Ears, nose, mouth, and throat Reports: throat pain and difficulty swallowing; Denies: neck pain, throat swelling or dry mouth Cardiovascular Denies: chest pain or palpitations Respiratory Denies: shortness of breath or cough Gastrointestinal Denies: abdominal pain, nausea or vomiting Genitourinary Reports: painful urination (last week, took amoxil from family member. ) and urinary frequency Musculoskeletal Denies: back pain or neck pain Integumentary/Breast Denies: rash, itching or redness Neurological Denies: headache Psychiatric Denies: anxiety or mood swings Hematologic/Lymphatic Denies: easy bruising PFSH PFSH Social History Smoking status: Current every day smoker Exam Narrative Exam Narrative: Nurses notes and vital signs reviewed and patient is not hypoxic. General: The patient appears well and in no apparent distress. Patient is resting comfortably on cart. Skin: Warm, dry, no pallor noted. Head: Normocephalic, atraumatic Neck: Supple, trachea mid-line, no tenderness, + anterior cervical lymphadenopathy Eye: Pupils are equal, round and reactive to light, EOMI Ears, Nose, Mouth, and Throat: TM are clear, normal light reflex, oral mucosa is moist, posterior oropharynx erythema with minimal exudate 1+ symmetric hypertrophy, uvula is mid-line Cardiovascular: Regular Rate and Rhythm Respiratory: Patient is in no distress, no accessory muscle use, lungs are clear to auscultation, no wheezing, rales or rhonchi. Chest Wall: no tenderness Back: non-tender, no CVA tenderness Musculoskeletal: normal ROM, no tenderness, no swelling GI: Normal bowel sounds, no tenderness to palpation, no masses appreciated. No rebound, guarding, or rigidity noted. Neurological: A&O x4 Psychiatric: Cooperative Constitutional Vital Signs, click to edit/add: Last Vital Signs Temp 98.2 F 06/17/23 18:40 Pulse 92 H 06/17/23 18:40 Resp 15 06/17/23 18:40 BP 133/73 06/17/23 18:40 Pulse Ox 98 06/17/23 18:40 O2 Del Method Room Air 06/17/23 18:40 Course Vital Signs Vital signs: Vital Signs Temperature 98.2 F 06/17/23 18:40 Pulse Rate 92 H 06/17/23 18:40 Respiratory Rate 15 06/17/23 18:40 Blood Pressure 133/73 06/17/23 18:40 Pulse Oximetry 98 06/17/23 18:40 Oxygen Delivery Method Room Air 06/17/23 18:40 Temperature 98.2 F 06/17/23 18:40 Pulse Rate 92 H 06/17/23 18:40 Respiratory Rate 15 06/17/23 18:40 Blood Pressure 133/73 06/17/23 18:40 Pulse Oximetry 98 06/17/23 18:40 Oxygen Delivery Method Room Air 06/17/23 18:40 MDM - URI/Sore Throat MDM Narrative Medical decision making narrative: Greater than 2 weeks of symptoms of tonsillitis, Monospot is negative. We discussed prior negative strep test, negative culture, urinalysis reviewed today. Patient treated symptomatically with Decadron and Tylenol p.o., given length of symptoms for tonsillitis we will place patient on Keflex 500 mg twice a day for 10 days. risk and benefits discussed The patient is to followup with primary care physician in next 2-3 days or to return to the emergency department should any of the signs or symptoms worsen or new symptoms develop. Patient had questions answered. The patient agrees with the following Diagnosis and Treatment plan and the patient will be discharged home. Lab Data Attestation: I reviewed the patient's lab results. Labs: Lab Results 06/17/23 06/17/23 Range/Units 19:09 19:13 Urine Color Lt. yellow (YELLOW) Urine Clarity Clear (CLEAR) Urine pH 6.0 (5.0-9.0) Ur Specific [place] 1.020 (1.005-1.025) Urine Protein Negative (NEG/TRACE) mg/dL Urine Glucose (UA) Negative (NEGATIVE) mg/dL Urine Ketones Negative (NEGATIVE) mg/dL Urine Occult Blood Negative (NEGATIVE) Urine Nitrite Negative (NEGATIVE) Urine Bilirubin Negative (NEGATIVE) Urine Urobilinogen 0.2 (0.2-1.0) EU/dL Ur Leukocyte Esterase Small A (NEGATIVE) Urine RBC 0-2 (0-2) #/HPF Urine WBC 2-5 A (NONE SEEN) #/HPF Ur Squamous Epith Cells Few A (NONE/RARE) #/LPF Urine Crystals None seen (None Seen) #/HPF Urine Bacteria None seen (NONE SEEN) #/HPF Urine Casts None seen (NONE SEEN) #/LPF Urine Mucus Trace A (NONE SEEN) Urine HCG, Qual Negative (NEGATIVE) Monoscreen Negative (NEGATIVE) Discharge Plan Discharge Chief Complaint: Upper Respiratory Infection Clinical Impression: Acute tonsillitis Patient Disposition: Home, Self-Care Time of Disposition Decision: 19:59 Condition: Good Prescriptions / Home Meds: New cephalexin 500 mg capsule 500 mg PO BID 10 Days Qty: 20 0RF No Action ondansetron HCl 4 mg tablet 4 mg PO Q6H PRN (Reason: nausea and vomiting) Qty: 12 0RF ibuprofen 600 mg tablet 600 mg PO TID PRN (Reason: pain) Qty: 30 0RF escitalopram oxalate 10 mg tablet 20 mg PO DAILY cholecalciferol (vitamin D3) 1,250 mcg (50,000 unit) capsule 50,000 unit PO QWEEK Hold Instructions: DC ondansetron 4 mg tablet,disintegrating 4 mg PO Q4H PRN (Reason: nausea and vomiting) 3 Days Qty: 6 0RF trazodone 50 mg tablet Instructions: Tonsillitis (ED) Referrals: Mariano Ibanez MD [Physician] - 1 week Physician,Non-Staff, [Primary Care Provider] - 1 week Stand Alone Forms: Portal Instructions
[2023-06-17] MEDS: ACETAMINOPHEN 500 MG TABLET 1000 MG PO (19:11)
[2023-06-17 19:20] LABS: Bilirubin Urine NEGATIVE (NEGATIVE); Blood Urine NEGATIVE (NEGATIVE); Clarity Urine CLEAR (CLEAR); Color Urine LT. YELLOW (YELLOW); Glucose Urine UA NEGATIVE (NEGATIVE); Ketones Urine NEGATIVE (NEGATIVE); Leukocyte Esterase Urine SMALL (NEGATIVE); Nitrite Urine NEGATIVE (NEGATIVE); Protein Urine NEGATIVE (NEG/TRACE); Urine Microscopic Indicated YES; Urobilinogen Urine 0.2 EU/dL (0.2-1.0)
[2023-06-17 19:21] LABS: HCG Qualitative Urine* NEGATIVE (NEGATIVE)
[2023-06-17 19:33] LABS: Bacteria Urine NONE SEEN #/HPF (NONE SEEN); Cast Seen? NONE SEEN #/LPF (NONE SEEN); Crystals Seen? None Seen #/HPF (None Seen); Mucus Urine TRACE (NONE SEEN); RBC Urine 0-2 #/HPF (0-2); Squamous Epithelial Cell Urine FEW #/LPF (NONE/RARE)
[2023-06-17] MEDS: DEXAMETHASONE SOD PHOS 10 MG/ML VIAL PO (19:38)
[2023-06-17 19:40] LABS: Mono Screen NEGATIVE (NEGATIVE)
[2023-06-17] MEDS: CEPHALEXIN 500 MG CAPSULE PO (20:07)
== END 2023-06-17 20:12 | disposition home or self-care (01) ==
PROVIDERS: Personal Emergency Response Attendant; Emergency Provider Emergency Medicine Emergency Medical Services
DX: J03.90 Acute tonsillitis, unspecified (principal); Z79.899 Other long term (current) drug therapy; F17.210 Nicotine dependence, cigarettes, uncomplicated
CPT/HCPCS: 81001; 84703; 86308; 99284; J1100

== ENCOUNTER 2023-06-30 12:59 | Emergency (ER) | payer OTHER, SELFPAY ==
[2023-06-30 13:08] VITALS: BP 112/80; PULSE 88; RESP 16; TEMP 36.8; O2SAT 100
--- NOTE | 2023-06-30 13:21 | ED.GENADUL1 ---
HPI - General Adult General Chief complaint: Upper Respiratory Infection Stated complaint: SORE THROAT Time Seen by Provider: 06/30/23 13:15 Source: patient Mode of arrival: walk-in Limitations: no limitations History of Present Illness HPI narrative: 18-year-old female presents to the emergency department for sore throat. She was treated here with Keflex for sore throat and finished the antibiotic 3 to 4 days ago. She then developed a yeast infection about 6 days ago with vaginal discharge and itching. Her sore throat came back about 3 days ago. No fever or vomiting or chest pain. Related Data Home Medications Medication Instructions Recorded Confirmed cholecalciferol (vitamin D3) 1,250 50,000 unit PO QWEEK 01/18/23 02/02/23 mcg (50,000 unit) capsule escitalopram oxalate 10 mg tablet 20 mg PO DAILY 01/18/23 06/17/23 trazodone 50 mg tablet mg 06/17/23 Previous Rx's Medication Instructions Recorded ibuprofen 600 mg tablet 600 mg PO TID PRN pain #30 tabs 02/02/23 ondansetron HCl 4 mg tablet 4 mg PO Q6H PRN nausea and 02/02/23 vomiting #12 tabs ondansetron 4 mg disintegrating 4 mg PO Q4H PRN nausea and 06/01/23 tablet vomiting 3 days #6 tabs cephalexin 500 mg capsule 500 mg PO BID 10 days #20 caps 06/17/23 fluconazole 150 mg tablet 150 mg PO DAILY 1 dose #1 tab 06/30/23 penicillin V potassium 250 mg 250 mg PO QID 10 days #40 tabs 06/30/23 tablet Allergies Allergy/AdvReac Type Severity Reaction Status Date / Time No Known Drug Allergies Allergy Verified 06/30/23 13:08 Review of Systems ROS Narrative A ten point review of systems is negative except as noted above. PFSH PFSH Social History Smoking status: Current every day smoker Exam Narrative Exam Narrative: Nurses note and vital signs reviewed and patient is not hypoxic. General: The patient appears well and in no apparent distress. Patient is resting comfortably on cart. Skin: Warm, dry, no pallor noted. There is no rash noted. Head: Normocephalic, atraumatic Eye: Normal conjunctiva, no drainage Ears, Nose, Mouth, and Throat: oral mucosa is moist. Nares patent. Mild pharyngeal erythema without exudate. No swelling. Uvula midline. Cardiovascular: Regular Rate and Rhythm Respiratory: Patient is in no distress, no accessory muscle use, lungs are clear to auscultation, no wheezing, rales or rhonchi Back: non-tender GI: Soft and nontender Musculoskeletal: The patient has no evidence of calf tenderness, no pitting edema, symmetrical pulses noted bilaterally Neurological: A&O, normal speech Psychiatric: Cooperative Constitutional Vital Signs, click to edit/add: Last Vital Signs Temp 98.3 F 06/30/23 13:08 Pulse 88 06/30/23 13:08 Resp 16 06/30/23 13:08 BP 112/80 06/30/23 13:08 Pulse Ox 100 06/30/23 13:08 O2 Del Method Room Air 06/30/23 13:08 Course Vital Signs Vital signs: Vital Signs Temperature 98.3 F 06/30/23 13:08 Pulse Rate 88 06/30/23 13:08 Respiratory Rate 16 06/30/23 13:08 Blood Pressure 112/80 06/30/23 13:08 Pulse Oximetry 100 06/30/23 13:08 Oxygen Delivery Method Room Air 06/30/23 13:08 Temperature 98.3 F 06/30/23 13:08 Pulse Rate 88 06/30/23 13:08 Respiratory Rate 16 06/30/23 13:08 Blood Pressure 112/80 06/30/23 13:08 Pulse Oximetry 100 06/30/23 13:08 Oxygen Delivery Method Room Air 06/30/23 13:08 Medical Decision Making MDM Narrative Medical decision making narrative: Strep test today is negative but this could be due to the fact that she was recently on an antibiotic. She will be prescribed penicillin. There is no evidence of peritonsillar abscess or tonsillitis at this point. She is also prescribed Diflucan. Treatment diagnosis and follow-up were discussed with the patient. Differential Diagnosis Differential Diagnosis: Strep throat, viral pharyngitis, tonsillitis Lab Data Lab results reviewed: Yes I reviewed the patient's lab results Labs: Lab Results 06/30/23 Range/Units 13:25 Streptococcus Screen Negative Discharge Plan Discharge Stand Alone Forms: Portal Instructions Chief Complaint: Upper Respiratory Infection Clinical Impression: Pharyngitis, Yeast vaginitis Patient Disposition: Home, Self-Care Time of Disposition Decision: 13:55 Condition: Good Mode of Transportation: Private Vehicle Prescriptions / Home Meds: New penicillin V potassium 250 mg tablet 250 mg PO QID 10 Days Qty: 40 0RF fluconazole 150 mg tablet 150 mg PO DAILY Qty: 1 1RF Rx Instructions: administer on day 1 of therapy No Action ondansetron HCl 4 mg tablet 4 mg PO Q6H PRN (Reason: nausea and vomiting) Qty: 12 0RF ibuprofen 600 mg tablet 600 mg PO TID PRN (Reason: pain) Qty: 30 0RF escitalopram oxalate 10 mg tablet 20 mg PO DAILY cholecalciferol (vitamin D3) 1,250 mcg (50,000 unit) capsule 50,000 unit PO QWEEK Hold Instructions: DC ondansetron 4 mg tablet,disintegrating 4 mg PO Q4H PRN (Reason: nausea and vomiting) 3 Days Qty: 6 0RF trazodone 50 mg tablet cephalexin 500 mg capsule 500 mg PO BID 10 Days Qty: 20 0RF Instructions: Pharyngitis (ED) Referrals: Physician,Non-Staff, MD [Primary Care Provider] - 1 week
--- OUTSIDE RECORDS SUMMARY | 2023-06-30 13:23 | XMS_ITS | CCD ---
Author Name Unknown Address [address] [place] [address] Organization [facility] Care Team Providers Care Steward/Stewardess Smoke Room Name Role Phone Jack Khan Unavailable LATISHA SEE Primary Care Physician [phone] DR LATISHA Bowen Primary Care Unavailable HAY ., DR FARIRE Admitting Unavailable HAY ., DR FRAIRE Attending [...] Care Provider MD Rajesh Solis Admit Provider [phone] MD Rajesh Solis Attending Provider LATISHA SEE Primary Care Physician Rajesh Solis Admitting Rajesh Regalado Attending Latisha Beach Primary Care Unavailable Rajesh Solis Attending Latisha Beach Primary Care Unavailable Rajesh Solis Admitting Unavailfrancisco j Santana, CONTROL CLERK [employer] Socorro Humphreys Attending Unavailable ALLI PUENTE Attending Unavailable ALLI PUENTE Attending Unavailable Dunia Cristina Admitting Unavailable Dunia Cristina Attending Unavailable Dunia Cristina Admitting Unavailable Dunia Cristina Attending Unavailable Guillermo Leahy Attending Unavailable ALLI PUENTE Attending Unavailable Medications Current Medications Medication Drug Class(es) Dates Sig (Normalized) Sig (Original) Acetaminophen (1 source) Tylenol Active brompheniramine maleate 0.4 mg/ml / dextromethorphan hydrobromide 2 mg/ml / pseudoephedrine hydrochloride 6 mg/ml oral solution (5 sources) alpha-Adrenergic Agonist, Uncompetitive S-csyoww-L-aspartat e Receptor Antagonist, Sigma-1 Agonist Start: 03-23-2022 [...] day(s), # 14 supp, Refills(s) 0, [facility]acy: [id number], 168, cm, 04/11/22 12:06:00 EST, Height/Length Dosing, 76, kg, 04/11/22 12:06:00 EST, Weight Dosing Start Date: 04/11/22 Stop Date: 04/18/22 Status: Ordered hydrOXYzine pamoate 50 mg oral capsule (1 source) Antihistamine Start: 07-12-2022 take 50 mg by mouth every six hours Hydroxyzine Pamoate Active 50 MG PO Q6H July 12, 2022 12:00am polyethylene glycol 3350 99269 mg powder for oral solution (1 source) Osmotic Laxative Start: 04-11-2022 End: 04-18-2022 take 17 g by mouth once daily Miralax 3350 17 gram packet 17 gm, Oral, Daily, X 7 day(s), # 255 gm, Refills(s) 0, Pharmacy: [facility] #[id number], 168, cm, 04/11/22 12:06:00 EST, Height/Length Dosing, [...] Test Name Value Interpretation Reference Range Facility Family Medicine Office/Clini c Noteon 06-21-2023 Family Medicine Office/Clinic Note Chief Complaint depression follow up HPI Staff Patient presents for 4 week follow up for depression. Follow up for Mental Status: Medication adherence- Yes, takes medication as prescribed Medication refill needed: _ Suicidal thoughts-Not at this time Most recent PHQ: 11 Most recent MARCIAL: 7 escitalopram 20 mg daily. refills? Last PHQ: 13 Last MARCIAL: 18 Patient also presents with illness. Patient was at [facility] 3 days ago and was prescribed ATB for strep although the test came back negative as they informed her throat looked positive. Patient feels. No fevers. Patient also complains of body aches, chills, and has fever today of 99.0F I have reviewed and verified the staff HPI to be accurate for this encounter. History of Present Illness Patient presents today in f/u for depression. She was started on escitalopram 20 mg one tablet daily and trazodone 50 mg one tablet at bedtime. Her PHQ-9 score today in the office is 11 and the MARCIAL-7 is 7. She reports she feels she is bipolar and has been getting into arguments with her boyfriend on a daily basis. She is not sure she is on the right medication but does not want to be sent to the psych [facility] . She is agreeable to a referral to industrial psychology professor or psychiatrist. Patient states she went to the ED a couple days ago and was diagnosed with strep throat. She is taking cephalexin 500 mg one tablet BID. She states she had a slight fever and sore throat. Review of Systems PHQ Score Initial Depression Screen Score: 6 SCORE Constitutional: no fever, no chills, no sweats, no weakness Skin: no Jaundice, no rash, no lesions, nopetechiae ENMT: no ear pain, mild sore throat, mild congestion, no hoarseness Respiratory: no shortness of breath, no cough, no orthopnea, no wheezing Cardiovascular: no chest pain, no palpitations, no edema Gastrointestinal: no nausea, no vomiting, no diarrhea, no GI bleeding Genitourinary: no dysuria, no hematuria, no discharge, no pain Musculoskeletal: no back pain, no trauma Neurologic: no headache, no dizziness, no numbness, no weakness Additional ROS info: Except as noted in the above Review of Systems and in the History of Present Illness all other systems have been reviewed and are negative or noncontributory. Physical Exam Vitals & Measurements T: 37.2 ?C(Temporal Artery) HR: 68(Peripheral) BP: 122/60 SpO2: 99% HT: 66 in HT: 168 cm WT: 89.9 kg WT: 197.78 lb BMI: 31.85 General: alert, no acute distress Skin: warm, dry Head: no trauma, normocephalic Neck: Trachea midline, no adenopathy, no tenderness Eye: normal conjunctiva, sclera clear ENMT: TM's clear, oral mucosa moist, no pharyngeal erythema or exudate Cardiovascular: regular rate and rhythm, normal peripheral perfusion Respiratory: Lungs CTA, respirations non labored Neurological: oriented x 4, LOC appropriate for age speech normal Psychiatric: cooperative, affect appropriate for age, normal judgement, normal psychiatric thoughts. Assessment/Plan 1. Depression (F32.A: Depression, unspecified) PHQ-9 score Continue escitalopram 20 mg one tablet daily Continue trazodone 50 mg one tablet at bedtime Discussed referral to industrial psychology professor at [facility] in agreement Ordered: [facility] External Ambulatory Referral 2. Acute upper respiratory infection (J06.9: Acute upper respiratory infection, unspecified) Explained viral vs bacterial infection Encouraged increase fluids Instructed to finish the cephalexin prescribed by the ED f/u if no improvement Ordered: Influenza Type A&B POC 12403 3. BMI 31.0-31.9,adult (Z68.31: Body mass index [BMI] 31.0-31.9, adult) The standard range for ages 18 and older is >=18.5 and < 25 kg/m2. Your BMI today was above this range, this falls in the overweight to obese category and there are medical benefits to weight loss. We can offer counselling, referral, and/or medical support in addressing this problem. Your BMI and weight management will be followed at subsequent visits. Follow-up With When Contact Information ALLI PUENTE CNP, FAM Within 6 months Additional Instructions: Depression Patient Education Upper Respiratory Infection, Adult, Rckp-ec-Mxhl Problem List/Past Medical History Ongoing Acute upper respiratory infection BMI 31.0-31.9,adult Depression Syncope and collapse Historical No qualifying data Procedure/Surgical History none. Medications cephalexin 500 mg Cap escitalopram 20 mg Tab, 20 mg= 1 tab(s), Oral, Daily, 1 refills traZODONE 50 mg Tab, 50 mg= 1 tab(s), Oral, Once a day (at bedtime), 1 refills Allergies No Known Allergies Social History Alcohol - Denies Alcohol Use, 04/11/2022 1-2 times per week, 10/03/2022 Substance Abuse - Denies Substance Abuse, 05/23/2023 Past, Marijuana, 05/23/2023 Tobacco - High Risk, 04/11/2022 Current vaping or e-cigarette use Smokeless Tobacco Use:., 06/20/2023 Immunizations Vaccine Date Status influenza virus vaccine, inactivated 05/23/2023 G (more content not included)... [facility] Comment on above: Result Comment: Elec tronically Signed By: ALLI PUENTE CNP\.br\Date and Time Signed: 06/21/23 07:31 EST Physician Referralon 024 Physician Referral [id number] .[id number] [facility] Ambulatory Visit Summaryon 0 06-20-2023 Ambulatory Visit Summary LENY GALVEZ :2005 Visit Date:06/20/2023 Ambulatory Visit Instructions Your Diagnosis Depression Acute upper respiratory infection BMI 31.0-31.9,adult Your Care Team Attending Physician - ALLI PUENTE CNP Primary Care Physician - ALLI PUENTE CNP This Is Your Medications List cephalexin (cephalexin 500 mg Cap) escitalopram (escitalopram 20 mg Tab) trazodone (traZODONE 50 mg Tab) Procedures Performed none. Discharge Vitals Temperature (Temporal Artery) 37.2 ?C Heart Rate (Peripheral) 68 Blood Pressure 122/60 Height 168 cm Height 66 in Weight 89.9 kg Weight 197.78 lb BMI 31.85 What to do next Scheduled Follow-Up Appointments Sunday 2:40 PM EDT With: ALLI PUENTE CNP Where: [facility] Patient Educationon 06-20-19 24 Patient Education Infectious Disease Upper Respiratory Infection, Adult An upper respiratory infection (URI) affects the nose, throat, and upper airways that lead to the lungs. The most common type of URI is often called the common cold. URIs usually get better on their own, without medical treatment. What are the causes? A URI is caused by a germ (virus). You may catch these germs by: ? Breathing in droplets from an infected person's cough or sneeze. ? Touching something that has the germ on it (is contaminated) and then touching your mouth, nose, or eyes. What increases the risk? You are more likely to get a URI if: ? You are very young or very old. ? You have close contact with others, such as at work, school, or a health care facility. ? You smoke. ? You have long-term (chronic) heart or lung disease. ? You have a weakened disease-fighting system (immune system). ? You have nasal allergies or asthma. ? You have a lot of stress. ? You have poor nutrition. What are the signs or symptoms? ? Runny or stuffy (congested) nose. ? Cough. ? Sneezing. ? Sore throat. ? Headache. ? Feeling tired (fatigue). ? Fever. ? Not wanting to eat as much as usual. ? Pain in your forehead, behind your eyes, and over your cheekbones (sinus pain). ? Muscle aches. ? Redness or irritation of the eyes. ? Pressure in the ears or face. How is this treated? URIs usually get better on their own within 7?10 days. Medicines cannot cure URIs, but your doctor may recommend certain medicines to help relieve symptoms, such as: ? Mofs-xvb-ludbyaz cold medicines. ? Medicines to reduce coughing (cough suppressants). Coughing is a type of defense against infection that helps to clear the nose, throat, windpipe, and lungs (respiratory system). Take these medicines only as told by your doctor. ? Medicines to lower your fever. Follow these instructions at home: Activity ? Rest as needed. ? If you have a fever, stay home from work or school until your fever is gone, or until your doctor says you may return to work or school. ? You should stay home until you cannot spread the infection anymore (you are not contagious). ? Your doctor may have you wear a face mask so you have less risk of spreading the infection. Relieving symptoms ? Rinse your mouth often with salt water. To make salt water, dissolve ??1 tsp (3?6 g) of salt in 1 cup (237 mL) of warm water. ? Use a cool-mist humidifier to add moisture to the air. This can help you breathe more easily. Eating and drinking ? Drink enough fluid to keep your pee (urine) pale yellow. ? Eat soups and other clear broths. General instructions ? Take mudo-bai-orswhnm and prescription medicines only as told by your doctor. ? Do not smoke or use any products that contain nicotine or tobacco. If you need help quitting, ask your doctor. ? Avoid being where people are smoking (avoid secondhand smoke). ? Stay up to date on all your shots (immunizations), and get the flu shot every year. ? Keep all follow-up visits. How to prevent the spread of infection to others ? Wash your hands with soap and water for at least 20 seconds. If you cannot use soap and water, use hand forestry technician. ? Avoid touching your mouth, face, eyes, or nose. ? Cough or sneeze into a tissue or your sleeve or elbow. Do not cough or sneeze into your hand or into the air. Contact a doctor if: ? You are getting worse, not better. ? You have any of these: ? A fever or chills. ? Brown or red mucus in your nose. ? Yellow or brown fluid (discharge)coming from your nose. ? Pain in your face, especially when you bend forward. ? Swollen neck glands. ? Pain when you swallow. ? White areas in the back of your throat. Get help right away if: ? You have shortness of breath that gets worse. ? You have very bad or constant: ? Headache. ? Ear pain. ? Pain in your forehead, behind your eyes, and over your cheekbones (sinus pain). ? Chest pain. ? You have long-lasting (chronic) lung disease along with any of these: ? Making high-pitched whistling sounds when you breathe, most often when you breathe out (wheezing). ? Long-lasting cough (more than 14 days). ? Coughing up blood. ? A change in your usual mucus. ? You have a stiff neck. ? You have changes in your: ? Vision. ? Hearing. ? Thinking. ? Mood. These symptoms may be an emergency. Get help right away. Call 911. ? Do not wait to see if the symptoms will go away. ? Do not drive yourself to the hospital. Summary ? An upper respiratory infection (URI) is caused by a germ (virus). The most common type of URI is often called the common cold. ? URIs usually get better within 7?10 days. ? Take flze-jyp-meadypz and prescription medicines only as told by your doctor. This information is not intended to replace advice given to you by your health care (more content not included)... [facility] Ambulatory Visit Summaryon 0 05-23-2023 Ambulatory Visit [...] EST With: Socorro Casarez Where: [facility] Consent for Flu Vaccineon Consent for Flu Vaccine [id number] .[id number] [facility] Family Medicine Office/Clini c Noteon 05-23-2023 Family Medicine Office/Clinic Note Chief Complaint depression follow up [...] Daily, # 90 tab(s), Refills(s) 1, [id number], 168, cm, 05/23/23 13:08:00 EST, Height/Length Dosing, 90, kg, 05/23/23 13:08:00 EST, Weight Dosing Completed & reviewed the PHQ-9 score of 13 and the MARCIAL-7 score of 18 today in the office escitalopram, 20 mg = 1 tab(s), Oral, Daily, # 90 tab(s), Refills(s) 1, [id number], 168, cm, 05/23/23 13:08:00 EST, Height/Length Dosing, 90, kg, 05/23/23 13:08:00 EST, Weight Dosing f/u in 4 weeks Ordered: influenza virus vaccine, inactivated, 0.5 mL, Injection, IntraMuscular, Once, Stop date 05/23/23 14:00:00 EST, Routine, Start date 05/23/23 14:00:00 EST trazodone, 50 mg = 1 tab(s), Oral, Once a day (at bedtime), # 90 tab(s), Refills(s) 1, [id number], 168, cm, 05/23/23 13:08:00 EST, Height/Length Dosing, 90, kg, 05/23/23 13:08:00 EST, Weight Dosing 2. Encounter to establish care (Z76.89: Persons encountering health services in other specified circumstances) 3. Encounter for immunization (Z23: Encounter for immunization) Ordered: influenza virus vaccine, inactivated, 0.5 mL, Injection, IntraMuscular, Once, Stop date 05/23/23 14:00:00 EST, Routine, Start date 05/23/23 14:00:00 EST FIRST VACCINE w/o Hospital Nursing Assistant Admin Charge [id number] Orders: escitalopram, 20 mg = 1 tab(s), Oral, Daily, # 90 tab(s), Refills(s) 1, [id number], 168, cm, 05/23/23 13:08:00 EST, [...] 1 refills (more content not included)... Normal [facility] Comment on above: Result Comment: Elec tronically Signed By: ALLI PUENTE CNP\.piyush\Date and Time Signed: 05/23/23 13:50 EST Patient Educationon 05-23-19 24 [facility] Depression, Adult Depression is a mental [...] or salt (sodium). General instructions ? Take vccb-rsy-ksdumad and prescription medicines only as told by [...] www.mentalhealthameri ca.ne (more content not included)... Normal [facility] Chlamydia/Gonococcus, NAAon 10-06-2022 C. trachomatis rRNA ANUP+probe Ql (Unsp spec) Negative Invalid Interpretation Code Negative [facility] Comment on above: Performed By: #### 1 [id number], [id number], [id number], [id number] ####[facility] [address] [place] [address] N. gonorrhoeae rRNA ANUP+probe Ql (Unsp spec) Negative Invalid Interpretation Code Negative [facility] Comment on above: Result Comment: [facility]f [facility]med at: [facility] [address] [place], [place] [id number] MD Griffin oLyd Performed By: #### 1 [id number], [id number], [id number], [id number] ####[facility] [address] [place] [address] C Urineon 10-05-2022 Bacteria identified Cx Nom (U) Microbiology PROCEDURE: Urine Culture [R1] SOURCE: U CleanCatch BODY SITE: COLLECTED DATE/TIME: 10/03/2022 14:58 EDT RECEIVED DATE/TIME: 10/03/2022 17:03 EDT START DATE/TIME: 10/03/2022 17:04 EDT FREE TEXT SOURCE: Guillermo Leahy DO, DO, John FINAL REPORTS Final Report [] Verified Date/Time: 10/05/2022 10:23 EDT 4,000 cfu/ml Mixed skin contaminants Performing Locations R1: This test was performed at: [facility], [address] [place] [address], [address]- , , Normal [facility] Comment on above: Performed By: #### 1 [id number], [id number], [id number], [id number] ####[facility] [address] [place] [address] Consent for Treatmenton 09-15 Consent for Treatment [id number] .[id number]:127 Normal [facility] Discharge Instructionson Discharge Instructions [id number]:127 Normal [facility] ED Clinical Summaryon 2022 ED Clinical Summary [address] [address] ED Clinical Summary Person Information Name: LENY GALVEZ/[facility] Age: 17 Years : 2005 Sex: Female Language: Chinese PCP: LATISHA SEE MD Marital Status: Single [...] 10/03/2022 15:55:29 10/03/2022 15:55:29 10/03/2022 15:55:29 ADDRESS: [address] [place] [phone] PHYS DOC NOTES: MEDICAL INFORMATION: Prescriptions Given: New Medications [id number], [address] [place], [place] [id number], [phone] doxycycline (doxycycline monohydrate 100 mg oral tablet) 1 Tablets By Mouth 2 times a day for 10 Days. Refills: 0. Medications to Continue with No Changes Other Medications brompheniramine/dextr omethorphan/PSE (Bromfed DM oral syrup) 5 Milliliter By Mouth 4 times a day as needed for cough and congestion. Refills: 0. PATIENT EDUCATION INFORMATION: Instructions: Follow up: With: Address: When: Kevin [address], [address], [place] [address] Business (1) In 3 days 10/06/2022 With: Address: When: LATISHA SEE [address] [place], [place] [phone] Business (1) In 3 days DIAGNOSIS: Cervicitis; Exposure to chlamydia Normal [facility] ED Note-Physicianon 10-04-19 ED Note-Physician Basic [...] this plan. I, Dr. Leahy had a dxqg-wg-tanv interaction with the patient. I personally performed [...] day(s), # 20 tab(s), Refills(s) 0, [facility]acy: [facility][id number], 168, cm, 10/03/22 14:11:00 EDT, Height/Length Dosing, 76, kg, 10/03/22 14:11:00 EDT, Weight Dosing Chlamydia/Gonococcus, ANUP U Beta Hcg Qual UA With Cult Reflex Urine Culture Disposition Plan Discharge Prescription List Prescriptions doxycycline monohydrate 100 mg oral tablet, 100 mg= 1 tab(s), Oral, BID Follow-up With When Contact Information Kevin Buckner In 3 days 10/06/2022 EDT [address] [place] [address]- Business (1) Additional Instructions: LATISHA SEE In 3 days [address] [place] [address] Business (1) Additional Instructions: Problem [...] (10/03/22 1 (more content not included)... Normal [facility] Comment on above: Result Comment: Elec tronically Signed By: Aicha Burris\.br\Date and Time Signed: 10/03/22 14:53 EDT\.br\Electronically Co-Signed By: Guillermo Leahy DO\.br\Date and Time Co-Signed: 10/03/22 15:45 EDT ED Patient Education Noteon 10-03-2022 ED Patient Education Note Normal [facility] ED Patient Summaryon 023 ED Patient Summary [address] [address] Patient Discharge Instructions Person Information Name: LENY GALVEZ Age: 17 Years Arrival Date: 10/03/2022 14:06:21 Discharge Diagnosis: Cervicitis; Exposure to chlamydia Primary Care Physician: LATISHA SEE MD Provider Information Primary Provider: Guillermo Leahy DO Advanced Engineering Document Control Clerk:None The exam and treatment you received in the Emergency Department were for an urgent problem and are not intended as complete care. It is important that you follow up with a doctor, nurse practitioner, or physician?s inventory assistant for ongoing care. If your symptoms become worse or you do not improve as expected and you are unable to reach your usual health care provider, you should return to the Emergency Department. We are available 24 hours a day. KINGLENY has been given the following list of patient education materials, prescriptions and follow-up instructions: Follow-up Instructions: With: Address: When: Kevin Buckner [address] [place] [address], [address] [address] Business (1) In 3 days 10/06/2022 With: Address: When: LATISHA SEE [address] [place] [phone] Business (1) In 3 days In the event that this physician does not participate in your insurance network, please consult with your insurance company to find a nearby participating provider. Patient Education Materials: A MESSAGE TO ALL PATIENTS REGARDING OPIOIDS PRESCRIPTION OPIOIDS: WHAT YOU NEED TO KNOW Prescription opioids can be used to help relieve ctungfqu-au-klegnh pain and are often prescribed following a [...] be struggling with addiction, tell your health skin care instructor (more content not included)... Normal [facility] U BetaHcg Qualon 10-03-2022 HCG.beta subunit (U) [Moles/Vol] Negative Normal [facility] Comment on above: Performed By: #### 1 [id number], [id number], [id number], [id number] ####[facility] [address] [place] [address] UA With Cult Reflexon 2022 Bacteria LM Ql (Urine sed) 1+ /HPF Abnormal Trace [facility] Comment on above: Performed By: #### 1 [id number], [id number], [id number], [id number] ####[facility] [address] [place] [address] Crystals LM Ql (Urine sed) Present Normal [facility] Comment on above: Performed By: #### 1 [id number], [id number], 6237636, [id number] ####[place] [id number] Epithelial cells.squamous LM.HPF (Urine sed) [#/Area] /[HPF] Normal 0-2 [facility] Comment on above: Performed By: #### 1 [id number], [id number], [id number], [id number] ####[place] [address] Wiscon.plasma/Wiscon .RBC (Bld) [Mass ratio] 0-3 Normal 0-3 [facility] Comment on above: Performed By: #### 1 [id number], [id number], 6490497, [id number] ####[facility] [address] [place] [address] Mucus Ql (Urine sed) 3+ Normal [facility] Comment on above: Performed By: #### 1 [id number], [id number], [id number], [id number] ####[facility] [address] [place], [place] [address] WBC LM.HPF (Urine sed) [#/Area] 6-15 Abnormal 0-5 [facility] Comment on above: Performed By: #### 1 [id number], [id number], 0760877, [id number] ####[facility] [address] [place] [address] Bilirubin Ql (U) Negative Normal Negative [facility] Comment on above: Performed By: #### 1 [id number], 83971015, 9490920, [id number] ####[facility] [address] [place] [address] Clarity (U) CLEAR Normal Clear [facility] Comment on above: Performed By: #### 1 [id number], [id number], 0134072, [id number] ####[facility] [address] [place] [address] Color (U) YELLOW Normal Yellow [facility] Comment on above: Performed By: #### 1 [id number], [id number], 9360813, [id number] ####[address] [address] Glucose Test strip (U) [Mass/Vol] Negative Normal Negative [facility] Comment on above: Performed By: #### 1 [id number], [id number], 1514390, [id number] ####[facility] [address] [place] [address] Hemoglobin Ql (U) Negative Normal Negative [facility] Comment on above: Performed By: #### 1 [id number], [id number], 4841049, [id number] ####[facility] [address] [place] [address] Ketones (U) [Mass/Vol] Negative Normal Negative [facility] Comment on above: Performed By: #### 1 [id number], [id number] ####[facility] [address] [place] [address] Nitrite Ql (U) Negative Normal Negative [facility] Comment on above: Performed By: #### 1 [id number] ####[facility] [address] [place] [address] pH (U) 7.0 [pH] Invalid Interpretation Code 5.0-9.0 [facility] Comment on above: Performed By: #### 1 [id number], [id number] ####[facility] [address] [place] [id number] Protein (U) [Mass/Vol] Negative Normal Negative [facility] Comment on above: Performed By: #### 1 [id number], [id number], [id number], [id number] ####[address] [address] Specific gravity (U) [Rel density] 1.020 Invalid Interpretation Code 1.005-1.030 [facility] Comment on above: Performed By: #### 1 [id number], [id number], [id number] ####[address] [address] Type of Urine collection method Clean Catch Normal [facility] Comment on above: Performed By: #### 1 [id number], [id number], [id number], [id number] ####[address] [address] Urobilinogen Qn (U) 1.0 {Evens'U}/dL Normal 0.0-1.0 [facility] Comment on above: Performed By: #### 1 [id number], [id number], [id number], [id number] ####[address] [address] WBC Auto Ql (U) TRACE Abnormal Negative [facility] Comment on above: Performed By: #### 1 [id number], [id number], [id number], [id number] ####[address] [address] Coding Summary.on 07-28-2022 Coding Summary. CD:[id number] W w+PGhlYWQ+OU6CIIMjI97 iwJCwrV2hI3KMWUqSNjjo JTLATReTIlIayjLyUJ8ki XNjZXJu IC8+VC1rWDUpKuzlwKMyz 6F0iZT8C28uyr2qLIyeqI T6UQVfEzGoxunxc6msoUx 6IDcuNmluOyBt VJKefC19WBO8uZ78Pr67h JReiXVpb1fjfLm0RrKcYJ AzDYW1iKztDCffx7RgZDS aT77vdLPmo7U8 DRBuaAaqySSgRiLixXK8o Y9yGUeyqnpdz7yixgfoDd n0ze10lWReu3A8uHX2K1C twhY3NCYqlAFb UsuosBOZiI9zmryll7aes mszDmIiATUgGHi3MTq8YB JmgJwwAdMgFW93HIR1PBM fxrPiS5FqVTTe oIkvViF8j0F9Ao3XH5HPM pdjY8NMTXTFCOlgdLV+PC 21lu89N9CmWtzbGib9KOT uBYS6pJW2wE8k ADOcQPavv9J0oWR6D1Tsv yQlgo9zv1yvINZeSQzzG3 0atUVav8E8BWHsuAJ1UVA txDikPqSsaR29 Oyc+IIFhxNzjh9PzJtbeb 1ild2tvjGn1YogtASIhal IhvBksNRX5x3HnKd1bPET qmSO0gAA6xH8j FhOqCiP0VWecH819EyHss GYiYhsnP28nC3FwqFF+PH MqNrj8GISmqEmxFH7eR6D hZGRpbmctbGVm mByzQB5cSGFeevwkKRRbg C3eDEDaM8v7YmLxEdF0RK fvO2BgBJWobegdWz05eU6 vTaZqDfD3ULpq A5HfgiD3HKWfpKAwXAykE OA7K09ut6X1DJOyXWEoZX X4yDZ1vY2lwMerqbtmdRB mdDsgdmVydGlj DUpvFMupW676SGPgeQiyW kNvZGluZyBEYXRlOiAgMD QvMTQvMjAyMzwvdGQ+PHR yUJR9cPeuHHKs tBGqVNfnVu5caUoleJlfL P3cSPXedpwjTZAskG5dGD HaqCLphAhsQK5hRKZyqva bv382JzOkPJH0 SYWivJCgH3HupZ5rBsNuG YRxNEErB9YdcMGiURzdQ8 59VVmbQvV8IVBhhbQsE6Y sLWFsaWduOiB0 j7D1Yi7Fu8LoxnmjB0Pdk QLnHeKzKiytRPo6A0WvOt wvdHI+RV85JDXxFP08YBa 7CPF2fLazXXbn GNQjK1KhpV3kHbMyUSDrW GRkOyc+PHRhYmxlIHdpZH RoPScxMDAlJyBzdHlsZT0 cBt6yYDApJEVa gAfdlRGtSvBdw1iqQJMkU WceDK7ejYdfJ0RdkNV3LG Psu0g5Zv26Q35fA7NujSK +TDRzuIO2oYX9 aR7qMqQvYtV3ADysM153V uHmfGDiSdcmw1ibq2hqnE b2HdZ3SYDoesDzkXunTNU 3x3GyCf98L73w IHdpZHRoPSIxNSUiIHZhb Rczft0mkD8lCq7+PGNvbC B3fMQ2aM3uUuVkNlK7TSm cA205NvFrkNWp Hmvce4kwq8iieIl1VvPdA DRovoBynPrsFJP1b6IsQe 08G2FrsAufg6QwAeb8ge6 8xUNus3D9eHI1 N9AzJIStnxzrdSYyrUudZ Z8hEMPbpwjeQBYyvD6gYJ FrS7b6RdKzQfG5XZzvG8L ipjW1LOQroRHb JUZanSSSdK0ehfauh3kpr dqvQkTbZQApCNb4XSv0ND JnoQfrXsXzGLG7QoB2OYW 1dRMdrJ5mzNib msgbsN6dJnr+VDQ5bIMzq ZGJAN9vMlaheXK+PHRkIH V0lDxxYQtxFGVhiT1iMFN eW1e1OyByOdV1 OSuqJ6DovxG6TMCyuRFzI LIydYBZsA2nqetkf8ndgx muSeOqOFIlZGs3WSe7UNK saWduOiBsZWZ0 HrV7QGU0hRAkiT2lhDpxi ubgoD1uCio+QmlydGggRG H5RPt8A6EyHkq2CCBleVx wJD8wyZWvDQcr Rk7sjOsfbHgwIM0sWSBru tmvh224WdKcr0krXOVrqJ EgWQmrWFG7X99dj8F8MGN aBTEfVPZ3hYI2 tJ7hfAhtnleciZStuMvap iFxlYvxMQbiLEvmC466NS LxhXfsKbKcLOk6L0McJvg 1KBBlbHvhYG9m jTTdVUuwVj8wxLzllZmxO Z9lCOYvfrjey350SsSky4 rxDAWtiQUpDUtyRQM0O60 jv5Y3WPUvJRUa LMJ5hZH4hM6vcJsnvfblm GVmdDsgdmVydGljYWwtYW iiZ362UGIhhJzfZyFxbEs 0A6GaEzs4VEBa dQfnTT4trMHhLPrhWm2tx UvzxHotLR9iGQMnziuob0 97RdMbj9ttCPFumDUmLYd uVTX6A29rn3L6 NZQtSAKgUZW4bDH8tJ6pu GlnbjogbGVmdDsgdmVydG fiMQttUDrqX110TPXayAx nPlBhdGllbnQg YZmqRHe8S1MnPvbgtLJ+P A87CUImLR60vCNpkGTnf6 apnYj1HiWhYOHfWMF2lIw uJCukm2CqNXRp H41joURig5Y5ZBWmgEhqg COcCbLsaXG1iF7lUFqhws ujo2bviigwXmssk8heic3 6gU22B78xKHkb ZHRoPSIzMCUiIHZhbGlnb k7zdR1dSy7+FZYzhJW7sV G7rJ0aFBMoHvS3HCfcO45 9InRvcCIvPjxj b1xgd2bucFy3YaS7EVNfo jSyvYyzARY0y9SeIx52B0 9sIHdpZHRoPSIyMCUiIHZ geHfixl5vlQ9o Ii8+EXEhgFO5yPN9bN7sI aHuRgL2BNkcE838WeSujO IpBcdcN44rN6TnkVB+PHR wLbt3QVTnvOcp EE9coAXkLYgeAy5tNXJ0T xAfUoRtVJejM9IqQKAntk mlhswjmIR3ZXHuFGQadM1 4Te7mrYcvRJMp zNNXoP4gyqnth4gbtfhiH cLyZISoYBz2YDd5JDTwkT zvRpAnMML0RhW9ZFJ9bWB acV6lxAuhepfi yS1bS6SnXSWdhmyoYu27o A1kFsRlZkH1EPctBam+V0 cHC47AZTODUDaDQVYTEQ8 0XR82vXDzj9X8 oDK8E4CiZFCpvqoodgyxc AU6RCLzTQXkuH09dCTaAO ycBc4hl1B1y281HZMfCHR dqS39Zu3hbRmx NYLunMZVyN1gwpqqh5ebx unuDjVrQGWaSCi4QCp4CZ VfvUrgWbWkSXX7KvJ1CMZ 8vGBznT7hrAjd gdtpyO8tOcp+MDIvMjYvM jAwNDwvdGQ+FHBmNCX8mW ktMZatHMTmaE4sLJFdB9x 6BjCpPwK2WXhp J2TcDEKgofwiHo68lQ2uN bXcMrN5DQqrX3ExiiN2WK IfnVOiKNliMYM2D10fc0Q 2CNKiUALcKSS2 zNU3rD7hlWlsizsajSWun DsgdmVydGljYWwtYWxpZ2 42YJQapRniTxA6TTznKSH hHJ69XJ55zHGn z6V1ePC3U6FkERFpqyqys wgisQK6RLKmTDPdvM65jP EaQPouCz1fw3F4k873BQQ iZTByrO88Ah5f uEwbAOGhdHZWyN3npisqb 4kykrlmFsXpDEJyENy9BZ h1CMSbxHixFgTbDVJ9NaQ 2FBV0kIUwuK2u gErdlawyzY3dVrr+RmVtY WvoOZ33SW11aLTcq3S9qC O5M5BbFGMeanrdiedwpKR 7VKAiGPHzbR86 wXWaPPcjOc3qs3G3i454P KKtHQAkdC48Oo6fmObmLS MbvKPNbY1tijkif1qensv gIzAwMDAwMDt0 TCy8XCRlrGnyGcTxLKB9O fH3JDW8zSLttV6ayJbzeu ucgW5sHbh+J5P5oRP2gTK udDwvdGQ+PC90 xz34K8UyUuvdWuu4CDMzS BQ3hMP3aV1uKTMkTJqxp4 V1pQB7A0ElvaPnbl8ox7w cSLYzVHkqX17r dIXxu0W4YKCwfTD0FFJvy OxvRrCysN78Bpx+PGNvbG maw2UlBuudw2xtc8duiQz 9IjMwJSIgdmFs cXwuPWI8m1DkJk77P98hG HdpZHRoPSIzMCUiIHZhbG byar2cdO6tIq0+PGNvbCB 1vUS5sG0bRsPg SqI1NXzrA312NyYrxLVuF umoe1rrs7rrgEt6LyCcMR QytdNrkOceWLK9n2UrBm8 3N5AvxHhso7Kn Loc0uz26xUHks5A9nDP1Y 3BhZGRpbmctbGVmdDogMC 6qZATepnqsPURjqQ5vWXS eO0l9WcMnRqQ9 PFxpI0OgihU1KZEgkFHzJ BYhuAYHcY5wejpnu4jydz clTfOwOIHnHLt8BXt0SSY saWduOiBsZWZ0 OfF1QOB7kKJouR3ugNrif njokT7lEny+JMc3u9fpkD TzLR9ebOF9YI51BR97sQV ze7E3fNL9H2Jf VVTqemaxyjxtvRQ6HIJfS YFeoZ35Nu7ffErcEa5xZK EfVPP6TZLqlVOtR5IdgE1 yOiAjMDAwMDAw S7TinJMbVMfxK207UAwsS oW6PGJodaKuP6CvQMUmwC ayItM0b7G3Vd5MRX21ZT0 5FV90aVBxg1G8 rWG7L9OwSKNtvsgyxucle XH3TRAhSAFgsC58Pe7aiL nfOd3uKLQrZBV5ZODqtDO sC8DrmE4nOdVz YIHaWITlG9TqiUNaTMvlN 136PWmsMzQ7BGUvheQaB4 CjMBLpnOjgEnN2w6P8Vw3 BEl08YP31BM57 iZTll0E8yMI0O9FhJFCoi bswqplwsLL5ZJEeRCPncB 63Mh7poTekKl3eNIHjDTV 7YBOibXXgX8Wr hB8yDsCnCJRdZKYzY7Lvv KWlGVtwV196PAveFdB8WZ WqigKbR2BeYJWvvYebNrV 3k9C4Jx7OHHmk ivm9F4PhNtkgnTG+PC90Y BKqIG04iFRepVHbh1lwtO a6VyJeZRVuFER1kVrxSPt ki2InHVReJ47s uAOwn1V8 (more content not included)... Normal [facility] Coding Summary.on 07-27-2022 Coding Summary. CD:[id number] W w+PGhlYWQ+BS1APMQjT48 izXBquK8kD1PJOXbTAtqo XPUQBXdCMgOqrlQkQV6uo XNjZXJu IC8+DB6wGRShTdvxlPZzy 0A5qRE0K77sut7tBFkgvE O8YJNyDsNknnuda2qfhVh 6IDcuNmluOyBt NPPleO49TKS8bP94Lk78w MDruADew7tpmEu1OqDtEF PnXLD9gIrsODsag7FgBRW cQ56cgBDsl3S5 GSGkxAetfTIlYuHpkGN8u N9iMLqelbqbm4ytvzmeRw m3nj92zFWum7V8uNF3J8M rwiL2RBKbeROm TdyspMPZkF7pntzbv6sjd nvfZbJhBEDfFCe9NXv1TP PrrZjwJjMwTN30LCA3CCK mfuVdA3CxENIa dRypLpV6u1H2Ry2FO4ZEA sgsY5QLMCUGCEvkuTU+PC 10ma56K0RpWrstNrx2LGS qUKB4fEV8xO3u EIMvJLfcd1C7yOE4G4Ban pJuks0fd9gfYHNvYUerP2 1myIYuc0Z9OVTkyAG8QPF ooMdnAnFrnM70 Oyc+PYGrcGehy1MuTezro 2crt0ckaFc3YqaaHAEpmy AviGrwLCB6n9FmPp6vNYZ giFI1eMS2bT1t UiHbYrT7TRojV898DrDlm JJlJwbpC80rO1UkjIF+PH DbVkr3YILdjBgkKY9dU7U hZGRpbmctbGVm aOerQU2fXIBgxuwfFDZan H3oLYWoK3t3TuIaMsF3TY pcH2DfUJOnrzrbNd68fJ1 rWfAtQdT2YQxi M0IlgdS4HZLdjGCyEBjrH TE7D55vk9F2LNUgYRPqNR Q0qQP2lW0wvOfpccwnzEF mdDsgdmVydGlj ZEhkQCuiY227CUFxfFwxZ kNvZGluZyBEYXRlOiAgMD QvMTMvMjAyMzwvdGQ+PHR kMDA7qZcjWYFx lRLrSPzoHs0tmXvotSyeC L6iDRQwvhyfXOVbyR2tWH GhqHJaiEpyDC0aLFZhrlr kd583SiPkSCY2 OJQtcBRqO8RceB5oRnMkP FJrEWAvQ1HeyNZzQRehT3 84GShxLeG8JDXkiaWgE6J sLWFsaWduOiB0 h4T1Df6Mn1OdmxwrO2Vbu QXuBxBtFfsmATa4L5EiZe wvdHI+OM29VQAzHB96MTr 0DQM4eNpnPYqx ODJbV0KpjR9eIgKyIYWpG GRkOyc+PHRhYmxlIHdpZH RoPScxMDAlJyBzdHlsZT0 uAk3hTFCmVARw vRfkrINhPqLvj3tsIGDlF VknYX3fbLhoI9AmaEN8JT Dgp3d3Vz09A43zF3LydHH +QEJhqUP1sMB0 zS0qYdTzLfN5XXyqP387B gYtgXJdXbexa4nvz3xhfO x5GvW3XNYdnwOkwOrqBRN 3k5ZdAk60E55a IHdpZHRoPSIxNSUiIHZhb Wntmx5ppX8cOr6+PGNvbC E6dQQ6qB7lLvVrYsO2KBm kH721FwNdlYDy Itpga1ncw7qvxTx4MtRfD IOibxUivJqkVGC1z2XsGm 70J2CsyQdzw0FdKea3rb9 9hDIyv7N9eSD5 P5GvZZYxztqcnFOyvHxlF A6lALGcoylxCMClyQ4qEB XyX6m4MiMvHbB5EUbbQ2S wxvR3DPVlhQWw IDQxvIESfE5okgudz8ajr iusHmAjAUSrMRi6BVf6GB JqeQkbEzEdGWQ8VuN1EAU 4xBNzxF7wdGax eilgmM6yDdt+CUV7yVMpd MNTYW1uAzsskYU+PHRkIH E1uLcjVDmmEHZldU0hZIN rN6t5WdAcDsJ0 ASzeT4MlonW6XLIrkGXzY YBknORCbJ8igldzb5wgaw unHaPqFUBuBIo0SDa5LMZ saWduOiBsZWZ0 WsN5KMX9fKTqfB8buSnhj cexsM0wQsx+QmlydGggRG F3OCb3V8ViWpf1VEZucHm kYD7olGYnLXmv Bk5xwWvwdIjeWL8kAMFvx hcfl264ThGhw3bcLOPnjI AiJRyyIDO3D90mh6O8JWA oDUXsRHL2lJZ4 nO8gmTcdvqpeoFQuvHsyl aWbsUajCKxlZWfvP699OO UuaLpoVjZtAKs6Q7CdVsx 8ZLXxvUjbVP3c uSQrSEizMq0sfCulcEiiE A1hRFHynxahy451OyDmk6 lnPYMpeSRrVCutGYG6L57 xo4I2MRUhBIKp PCN1ePA7dY4ikZapnoydc GVmdDsgdmVydGljYWwtYW flA086UOZzaPjgBwYqaBd 3X4XkPay7KDIv aGyrRM1ulXRtMNvvNo5xf DxnpDnsWB9bHWGzqkbje7 82LcOdy3gqVQSmcLPlRKm sKSW2N89xe1A7 FEIcAQRqZVO0jSB0pT3vu GlnbjogbGVmdDsgdmVydG lzYZmmNMboQ669YPSyeUk nPlBhdGllbnQg MUgoRZg3L0AnFhhkxYA+P Y30HYTgJX60eCZlfWAqj7 lqeDj1WlNkYVOxCEV1rVe lSUfrk3EdYEIp M63dlERto2X0XQDtsZwbo IIvQwJuyUE5fB2iLYtuly ejn7pgtvyjJjnpa4kgij8 0kG59J37iKIdi ZHRoPSIzMCUiIHZhbGlnb g9dcI0jJr9+SJXblKQ9rY S7wI5wTUMsMtV6JMjbK58 9InRvcCIvPjxj u8yti9dnvLe4GbO7SDFkd qDwmYniCYQ7m5PlQf46P4 9sIHdpZHRoPSIyMCUiIHZ jiZeabf7lhY1g Ii8+KKEcmEK6dLJ5xZ5oE jRdZwS6FJikO661CsGqaO GwHydrD64yD3YcpKO+PHR yWwd6GRZfiBqk DN2qoRArDCopXv9pXII7A wZoCzCrMPzpE3FiKVBjpk xmscnljTZ2DOUlOTHleC4 3Fx2doRvpHLUp bLZFuC2thhcrs7eqieqqK kKtTIPhRIg8JLv0RVHbaX ohTlUjRNK2WtQ6NMY3qLW upD9ggVfbomys lZ9vQ8GaPEEqzxuxBo99b Z1lPzZaGcI5BXmaCgs+V0 gYL52WLJTPMEyNJLJDWB6 2ZT67bZPqz7F5 xUM4A1TgNUTlavzfppivo FP8ZJQzBXLbeL21lTCjFA yeCe5bw4Y6s719ERYaTWP fvX12Cd3iyCjf JHLbcUWWbC0eskhvf1jsy gliYuMsIKFrCMl4QNy7RO EaxXvkEdYzWGB2GaU2DQI 4gOPivI0deToy zgpolI4zBld+MDIvMjYvM jAwNDwvdGQ+AHToQCT5mD elTDsbGTLdyY2bRGXpX3n 1YiIbHrH6YVnd J8FwETQwqowwLo76iS6sP lXkLyJ6LWfqY2WgcuU0HK BxkXItQCorZPV6X93dw4T 1UXVhUQFpNSN1 dJB2oD8eeYqqibbggWFrx DsgdmVydGljYWwtYWxpZ2 26JRMycSevTuX0IBioCNB uVU10OW73rXNh f6C1gOI8V9NyTYEldbdwq hmfjSV6LOUbFMXsuE89cB PaEHhqBa3it1T5h157IYX uWBPztO42Dq9j hOwnLQLcsICOkD2nvpodd 5smnxivZwSbXBUtHNi0RX s1UUAvlUodIrFoQUN1BzA 2VFF0gGClxM1k nTzuhvpnlL4vMsh+RmVtY ZsjOE92JV76uOTmp9V6nT I5G4CbNRYknlupszilkVX 4QRSaEEXpvS27 zGJbLJnvSk7bq3W9u088D AIpAIUmpV95Ry7hiQpiBZ MigQKUfS7sddbpe7tabrh gIzAwMDAwMDt0 XZu5DQJvxZpfNjKeQCF0C qY7OZO2tBIbmR6ogLdskn ufgT0sVrb+VFJoKKBsf2X rt6BbQI32OP55 G1GoKbvgxVKxdCS+PHRhY mxlIHdpZHRoPScxMDAlJy XsbFrsQS4jMf9bOMCkHNJ vbGxhcHNlOiBj v5ymASMwGCxhKY4vsWogQ 1OhlOY3CQJij8o9Bg14D1 0aU1LtbEB+OXTdrNB9iAV 9tN9pMkSnOvV3 TCjsD185FfUkeXScNikak 0bhx0wcgZd1UxUkJWQlfj RdyKdsKNB5s2NjWa68J29 sIHdpZHRoPSIy YFUbFJMklMhhcs0sqG8bQ i8+FYKuvAT5uPO0hP3kWq CpIoK1VKyjI293ZpWfcID zEcagA83zE5Af dXA+DDLuUji5IUSoyPacG V8wfHFxFNzxDq7hCAA6Fx WmXyMySCiyP5DnYFNlpgs rjhwpkUP2WDCq ODQsiY31Vg3zvKnnJg4qQ NZcFLA4NVStpHVoM1HhxD 9vVhDsURPyQIAzJ4QtqKA zQOcyV101LJbc QuX1ZBEzdzPcB0LoECZde AhbHmX4e1S1Of8LxUmuiQ EfGT5mOjYfYSr0H4JfFcr 6SLIdqArcGF0b fFUzQWihLk3roArvgNhgZ D5uGYOakpbpc487OnKvh0 jrAUIkgHPdUFsvJNC5A43 rd0G1QTQbTGUx PTK1vYO3kF1geVhtncxse GVmdDsgdmVydGljYWwtYW iyQ270HOVraBorBjBORrp 2W1QoLks8HUBa vPtxCD5jmTPsXAmfLi1jm SbtbNmnUV9iWCYxysond2 54GjGnq8gqMMTltKUtLMv cGNU5K91yj4P3 OUSnIZRaQTC2pDH7qP7jj GlnbjogbGVmdDsgdmVydG cxYCkhUPmyW500VKHjoId qQj5RXck1G7Gj Hwe7PEYrkXvmUO1fhRCmJ EiaXn4ujQqsrLfzCV4ySF Shfdlcd853MyHan3ayJIQ wcHQgVGltZXM7 T83cj8N4MDHgVFQuKPT5r RD3gF4miHvboecyeYAgyC zprpJumCdzMUvdRVbsZ27 6IHRvcDsnPlBh eWVyOjwvdGQ+HS36tv32E 1QtQrtsJts4CAOvLKE4gK B4yW8wSYIeROhle2A9vPO 2D3RvuaAafx0y e4qnXMOg (more content not included)... Normal [facility] Chlamydia/Gonococcus, NAAon 07-22-2022 C. trachomatis rRNA ANUP+probe Ql (Unsp spec) Negative Invalid Interpretation Code Negative [facility] Comment on above: Performed By: #### 1 [id number] ####[facility] [address] [place] [address] N. gonorrhoeae rRNA ANUP+probe Ql (Unsp spec) Negative Invalid Interpretation Code Negative [facility] Comment on above: Result Comment: Perf ormed at: = [facility] [address] [id number] MD Griffin Loyd Performed By: #### 1 [id number] ####[facility] [address] [place] [address] DHEASon 07-21-2022 DHEA-S [Mass/Vol] 246.0 microgram/dL Invalid Interpretation Code 110.0-433.2 [facility] Comment on above: Result Comment: Perf ormed at: [facility] [address] [id number] PhD Arnie Polanco Performed By: #### 7 [id number], [id number], [id number], [id number], [id number], [id number], [id number], [id number] ####[facility] [address] [place] [address] FSH and LHon 07-21-2022 Follitropin Qn 2.9 m[IU]/mL Invalid Interpretation Code [facility] Comment on above: Result Comment: Adul t Female: Follicular phase 3.5 - 12.5 Ovulation phase 4.7 - 21.5 Luteal phase 1.7 - 7.7 Postmenopausal 25.8 - 134.8 Performed at: [address] [id number] PhD Arnie Polanco Performed By: #### 7 [id number], [id number], [id number], [id number], [id number], [id number], 0693499, 92914208 ####[facility] [address] [place] [address] Lutropin Qn 9.8 m[IU]/mL Invalid Interpretation Code [facility] Comment on above: Result Comment: Adul t Female: Follicular phase 2.4 - 12.6 Ovulation phase 14.0 - 95.6 Luteal phase 1.0 - 11.4 Postmenopausal 7.7 - 58.5 Performed By: #### 7 [id number], 45296765, 53861978, 4434133, 7861777, 0551688, 6848567, 403416012, 0215479, 84539457 ####[facility] [address] [place] [address] Insulin Lvlon 07-21-2022 Insulin Qn 21.1 u[IU]/mL Invalid Interpretation Code 2.6-24.9 [facility] Comment on above: Result Comment: Perf ormed at: [address] [id number] PhD Arnie Polanco Performed By: #### 7 [id number], 10047855, 51795468, 7646292, 8760821, 2352691, 1669659, 999800297, 2471942, 00700094 ####[facility] [address] [place] [address] Testost Totalon 07-21-2022 Testosterone [Mass/Vol] 22 ng/dL Invalid Interpretation Code [facility] Comment on above: Result Comment: Perf ormed at: [address] [id number] PhD Arnie Polanco Performed By: #### 7 [id number], 23030033, 04949611, 6851344, 2074159, 5591190, 6451984, 965368930, 2559451, 15118422 ####[facility] [address] [place] [address] CHEMISTRYOrdered By: SYSTEM SYSTEM on 07-20-2022 25-hydroxyvitamin [...] 7.40 ng/mL Normal 3.34 - 26.72 ng/mL [facility] Remisol Triglyceride [Mass/Vol] 80 mg/dL Normal <=149mg/dL [facility] Remisol TSH Qn 1.22 m[IU]/L Normal 0.34 - 5.60 mcIU/mL [facility] Remisol CHEMISTRYOrdered By: Linda Zamorano se on 07-20-2022 HbA1c (Bld) [Mass fraction] 4.3 % Normal <=5.9% [facility] ChemAutoSS Glu Fastingon 07-20-2022 Glucose [Mass/Vol] 92 mg/dL Normal 55-99 [facility] Comment on above: Performed By: #### 7 [id number], 95612479, 43831038, 2438847, 3263025, 4045941, 8303656, 464176102, 3595796, 08396338 ####[facility] [address] [place] [address] WvsS9gzv 07-20-2022 HbA1c (Bld) [Mass fraction] 4.3 % Normal <=5.9 [facility] Comment on above: Performed By: #### 7 [id number], 88109735, 27843829, 0572651, 6967464, 2388922, 2719823, 939891202, 9402848, 69399902 ####[facility] [address] [place] [address] Lipid Panelon 07-20-2022 Cholesterol [Mass/Vol] 140 mg/dL Normal 120-200 [facility] Comment on above: Performed By: #### 7 [id number], 51984338, 25786029, 3800619, 9385075, 6725190, 5904696, 226300869, 8019779, 42849554 ####[facility] [address] [place] [address] Cholesterol in HDL [Mass/Vol] 56 mg/dL Invalid Interpretation Code [facility] Comment on above: Result Comment: HDL > or equal to 60 mg/dL: Low cardiovascular risk HDL < 40 mg/dL : High cardiovascular risk Performed By: #### 7 [id number], 78694993, 83978758, 6610011, 4171514, 8801646, 7578370, 104314423, 8332306, 93166790 ####[facility] [address] [place] [address] Cholesterol in LDL [Mass/Vol] 82 mg/dL Normal <=129 [facility] Comment on above: Performed By: #### 7 [id number], 79670845, 06130880, 8034576, 8885707, 5298458, 7689154, 005273166, 0972785, 02980588 ####[facility] [address] [place] [address] Cholesterol in VLDL [Mass/Vol] 16 mg/dL Normal 7-40 [facility] Comment on above: Performed By: #### 7 34835666, 00143153, 38473437, 0253313, 0035847, 7346099, 3793499, 697267402, 1960335, 06578936 ####[facility] [address] [place] [address] Triglyceride [Mass/Vol] 80 mg/dL Normal <=149 [facility] Comment on above: Performed By: #### 7 [id number], 98015731, 68360375, 9202365, 8249416, 6588423, 9592091, 878582862, 4293309, 72470147 ####[facility] [address] [place] [address] Physician Orderon 07-20-2022 Physician Order [id number]# 1.00CD:127 Normal [facility] Prolactinon 07-20-2022 Prolactin [Mass/Vol] 7.40 ng/mL Normal 3.34-26.72 [facility] Comment on above: Performed By: #### 7 [id number], 02316433, 66115023, 5747956, 9728090, 3889329, 7848233, 630858039, 3462528, 06834508 ####[facility] [address] [place] [address] TSHon 07-20-2022 TSH Qn 1.22 m[IU]/L Normal 0.34-5.60 [facility] Comment on above: Performed By: #### 7 [id number], 81519183, 78946054, 9025183, 9880281, 9444909, 1153646, 624798447, 9815971, 73917961 ####[facility] [address] [place] [address] Vitamin D 25 Hydroxyon 07-20 25-hydroxyvitamin D3 [Mass/Vol] 23.8 ng/mL Low 30.0-100.0 [facility] Comment on above: Result Comment: Vit culp D deficiency has been defined as a level of serum 25-OH vitamin D less than 20 ng/mL (1,2) by the [employer] of [employer] and an Endocrine Society practice guideline. The Endocrine Society further defined vitamin D insufficiency as a level between 21 and 29 ng/mL (2). 1. IOM ([place] of Medicine). 2010. Dietary reference intakes for calcium and D. [place]: The National Academies Press. 2. Cem MF, Bernadine NC, Trudi PRICE, et al. Evaluation, treatment, and prevention of vitamin D deficiency: an Endocrine Society clinical practice guideline. JCEM. 2010; 96 (7):1911-30. Performed By: #### 7 [id number], 39772703, 30349219, 0271321, 7464945, 3345207, 2337240, 321322948, 0016967, 10577270 ####[facility] [address] [place] [address] Physician Orderon 07-19-2022 Physician Order [id number]#1 .00CD:127 Normal [facility] Physician Order [id number]#1 .00CD:127 Normal [facility] Cholesterol [Mass/volume] in Serum or PlasmaOrdered By: Dean Solis on 07-10-2022 Cholesterol [Mass/Vol] 134 mg/dL 140-200 [facility] Comment on above: Chol less than 200 m g/dl low riskChol 201-239 mg/dl borderline riskChol 240 mg/dl and greater high risk Cholesterol in LDL Calc [Mas s/Vol]Ordered By: Dean Solis on 07-10-2022 Cholesterol in LDL [Mass/Vol] 69 mg/dL 0-100 [facility] Comment on above: LDL ATP III CLASSIFI CATIONLDL less than 100 mg/dL OptimalLDL 100-129 mg/dL Near or above optimalLDL 130-159 mg/dL Borderline highLDL 160-189 mg/dL HighLDL greater than 189 mg/dL Very high Cholesterol in VLDL Calc [Ma ss/Vol]Ordered By: Dean Solis on 07-10-2022 Cholesterol in VLDL [Mass/Vol] 12 mg/dL [facility] ECG 12 lead ECGon 07-10-2022 ECG 12 lead ECG [facility] [address] [address] Electrocardiograph Report Signed Patient: Leny Galvez MR#: [id number] 33 : 2005 Acct:[id number] Age/Sex: 17 / F ADM Date: 07/09/22 Loc: Room: [address] [place] [address] Type: ADM IN Attending Dr: Rajesh Solis [...] By Krzysztof Tavera DO 07/10 1847 Normal [facility] Lipid Panelon 07-10-2022 Cholesterol [Mass/Vol] 134 mg/dL Low 140-200 [facility] Comment on above: Result Comment: Chol less than 200 mg/dl low risk Chol 201-239 mg/dl borderline risk Chol 240 mg/dl and greater high risk Performed By: #### L IPID, TSH3 wRFLX, [id number] #### [facility] [address] [place] [id number] [place] Cholesterol in HDL [Mass/Vol] 53 mg/dL Normal 35-85 [facility] Comment on above: Result Comment: HDL CHOL ATP-III CLASSIFICATION Cardiovascular Risk HDL > or equal to 60 mg/dL LOW HDL < 40 mg/dL HIGH Performed By: #### L IPID, TSH3 wRFLX, [id number] #### [facility] [address] [place] [address] [place] Cholesterol.total/Chol esterol in HDL [Mass ratio] 2.5 {ratio} Normal <5.0 [facility] Comment on above: Performed By: #### L IPID, TSH3 wRFLX, [id number] #### [facility] [address] LDL Cholesterol,Calculated 69 mg/dL Normal 0-100 [facility] Comment on above: Result Comment: LDL ATP III CLASSIFICATION LDL less than 100 mg/dL Optimal LDL 100-129 mg/dL Near or above optimal LDL 130-159 mg/dL Borderline high LDL 160-189 mg/dL High LDL greater than 189 mg/dL Very high Performed By: #### L IPID, TSH3 wRFLX, [id number] #### [facility] [address] Triglyceride w/Reflex 62 mg/dL Normal 0-149 [facility] Comment on above: Result Comment: TRIG ATP III CLASSIFICATION TRIG less than 150 mg/dL Normal TRIG 150-199 mg/dL Borderline high TRIG 200-500 mg/dL High TRIG greater than 500 mg/dL Very high Standard traceable to the Center for Disease Conrtrol and Prevention (CDC) test method. Performed By: #### L IPID, TSH3 wRFLX, [id number] #### [facility] [address] VLDL CHOLESTEROL 12 mg/dL Normal [facility] Comment on above: Performed By: #### L IPID, TSH3 wRFLX, [id number] #### [facility] [address] Serum or plasma high density lipoprotein (HDL) cholesterol measurementOrdered By: Dean Solis on 07-10-2022 Cholesterol in HDL [Mass/Vol] 53 mg/dL 35-85 [facility] Comment on above: HDL CHOL ATP-III CLA SSIFICATION Cardiovascular RiskHDL > or equal to 60 mg/dL LOWHDL < 40 mg/dL HIGH Serum or plasma total choles terol/high density lipoprotein (HDL) cholesterol mass ratOrdered By: Dean Solis on 07-10-2022 Cholesterol.total/Chol esterol in HDL [Mass ratio] 2.5 {ratio} <5.0 [facility] Thyroid Stim Hormone w/Rflxo n 07-10-2022 Thyroid Stim Hormone w/Rflx 3.34 u[iU]/mL Normal 0.45-5.33 [facility] Comment on above: Performed By: #### L IPID, TSH3 wRFLX, [id number] #### [facility] [address] Thyrotropin [Units/volume] i n Serum or PlasmaOrdered By: Dean Solis on 07-10-2022 TSH Qn 3.34 m[IU]/L 0.45-5.33 [facility] Triglyceride [Mass/volume] i n Serum or PlasmaOrdered By: Dean Solis on 07-10-2022 Triglyceride [Mass/Vol] 62 mg/dL 0-149 [facility] Comment on above: TRIG ATP III CLASSIF ICATIONTRIG less than 150 mg/dL NormalTRIG 150-199 mg/dL Borderline highTRIG 200-500 mg/dL High TRIG greater than 500 mg/dL Very highStandard traceable to the Center for Disease Conrtrol and Prevention (CDC) test method. Vitamin D 25 Hydroxy Totalon 07-10-2022 Vitamin D 25 Hydroxy Total 12.0 ng/mL Low 30-100 [facility] Comment on above: Result Comment: GOOD MIN D STATUS 25(OH)VITAMIN D RANGE (ng/mL) Deficient <20 Insufficient 20 to <30 Sufficient 30 to 100 Reference: Cem MF,Bernadine NC, Trudi PRICE, et al. Evaluation,treatment, and prevention of vitamin D deficiency; an Endocrine Society clinical practice guideline. JCEM. 2010; 96(7):1911-30. PERFORMED BY: [facility] [address] [place] [address] PATHOLOGIST SIGN LANGUAGE TRANSLATOR ROBERT PRADHAN M.D. Performed By: #### L IPID, TSH3 [id number], [id number] #### [facility] [address] Vitamin D+Metabolites [Mass/ volume] in Serum or PlasmaOrdered By: Dean Solis on 07-10-2022 Vitamin D+Metabolites [Mass/Vol] 12.0 ng/mL 30-100 [facility] Comment on above: VITAMIN D STATUS 25( [place])VITAMIN D RANGE (ng/mL) Deficient <20 Insufficient 20 to <30Sufficient 30 to 100Reference: Cem MF,Bernadine OSBORNE, Trudi PRICE, et al. Evaluation,treatment, and prevention of vitamin D deficiency; an Endocrine Society clinical practice guideline. JCEM. 2010; 96(7):1911-30. ACETAMINOPHENon 07-09-2022 Acetaminophen [Mass/Vol] ug/mL Critically low 10.0-30.[address] [facility] Comment on above: Performed By: #### C MP, SALYC, ACET #### [facility] [address] [place] [address] Dr. Skylar Ramirez CBC AUTO DIFFon 07-09-2022 BASO # 0.1 103/ul Normal 0.0-0.[address] [facility] Comment on above: Performed By: #### C BC #### [facility] [address] [place] [address] Dr. Skylar Ramirez Basophils/100 WBC (Bld) 0.6 % Normal 0.2-2.[address] [facility] Comment on above: Performed By: #### C BC #### [facility] [address] [place] [address] Dr. Skylar Ramirez EO # 0.1 103/ul Normal 0.0-0.[address] [facility] Comment on above: Performed By: #### C BC #### [facility] [address] [place] [address] Dr. Skylar Ramirez Eosinophils/100 WBC (Bld) 1.0 % Normal 0.9-7.[address] [facility] Comment on above: Performed By: #### C BC #### [facility] [address] [place] [address] Dr. Skylar Ramirez Erythrocyte distribution width (RBC) [Ratio] 12.6 % Normal 11.0-15.[address] [facility] Comment on above: Performed By: #### C BC #### [facility] [address] [place] [address] Dr. Skylar Ramirez Hematocrit (Bld) [Volume fraction] 39.7 % Normal 36.0-48.[address] [facility] Comment on above: Performed By: #### C BC #### [facility] [address] [place] [address] Dr. Skylar Ramirez Hemoglobin (Bld) [Mass/Vol] 14.4 g/dL Normal 12.0-16.[address] [facility] Comment on above: Performed By: #### C BC #### [facility] [address] [place] [address] Dr. Skylar Ramirez IG # 0.03 10e3/ul Normal 0.00-0.[address] [facility] Comment on above: Performed By: #### C BC #### [facility] [address] [place] [address] Dr. Skylar Ramirez IG % 0.4 % Normal 0.0-0.[address] [facility] Comment on above: Performed By: #### C BC #### [facility] [address] [place] [address] Dr. Skylar Ramirez LYMPH # 2.2 103/ul Normal 1.2-3.[address] [facility] Comment on above: Performed By: #### C BC #### [facility] [address] [place] [address] Dr. Skylar Ramirez Lymphocytes/100 WBC (Bld) 27.4 % Normal 20.5-60.[address] [facility] Comment on above: Performed By: #### C BC #### [facility] [address] [place] [address] Dr. Skylar Ramirez MANUAL DIFF REQ NO Normal [facility] Comment on above: Performed By: #### C BC #### [facility] [address] [place] [address] Dr. Skylar Ramirez MCH (RBC) [Entitic mass] 33.6 pg Normal 26.7-34.[address] [facility] Comment on above: Performed By: #### C BC #### [facility] [address] [place] [address] Dr. Skylar Ramirez MCHC (RBC) [Mass/Vol] 36.3 g/dL Critically high 29.9-35.2 [facility] Comment on above: Performed By: #### C BC #### [facility] [address] [address] [address] Skylar Ramirez MCV (RBC) [Entitic vol] 92.5 fL Normal 81.0-99.[address] [facility] Comment on above: Performed By: #### C BC #### [facility] [address] [address] [address] Skylar Ramirez MONO # 0.4 103/ul Normal 0.3-0.[address] [facility] Comment on above: Performed By: #### C BC #### [facility] [address] [address] [address] Skylar Ramirez Monocytes/100 WBC (Bld) 5.5 % Normal 1.7-12.[address] [facility] Comment on above: Performed By: #### C BC #### [facility] [address] [address] [address] Skylar Ramirez NEUT # 5.3 103/ul Normal 1.4-6.[address] [facility] Comment on above: Performed By: #### C BC #### [facility] [address] [address] [address] Skylar Ramirez Neutrophils/100 WBC (Bld) 65.1 % Normal 43.0-75.[address] [facility] Comment on above: Performed By: #### C BC #### [facility] [address] [address] [address] Skylar Ramirez Platelet mean volume (Bld) [Entitic vol] 9.8 fL Normal 9.5-13.[address] [facility] Comment on above: Performed By: #### C BC #### [facility] [address] [address] [address] Skylar Ramirez PLT 316 103/ul Normal 150-450 [facility] Comment on above: Performed By: #### C BC #### [facility] [address] [address] [address] Skylar Ramirez RBC 4.29 106/ul Normal 4.20-5.40 [facility] Comment on above: Performed By: #### C BC #### [facility] [address] [place] [address] Dr. Skylar Ramirez WBC 8.1 103/ul Normal 4.0-11.[address] [facility] Comment on above: Performed By: #### C BC #### [facility] [address] [place] [address] Dr. Skylar Ramirez DRUG SCREEN RAPID (URINE)on 07-09-2022 AMP Negative Normal NEGATIVE [facility] Comment on above: Performed By: #### E TH #### [facility] [address] [place] [address] Dr. Skylar Ramirez BAR Negative Normal NEGATIVE [facility] Comment on above: Performed By: #### E TH #### [facility] [address] [place] [address] Dr. Skylar Ramirez BUP Negative Normal NEGATIVE [facility] Comment on above: Performed By: #### E TH #### [facility] [address] [place] [address] Dr. Skylar Ramirez BZO Negative Normal NEGATIVE [facility] Comment on above: Performed By: #### E TH #### [facility] [address] [place] [address] Dr. Skylar Ramirez RICHIE Negative Normal NEGATIVE [facility] Comment on above: Performed By: #### E TH #### [facility] [address] [place] [address] Dr. Skylar Ramirez CUT-OFFS SEE BELOW Normal [facility] Comment on above: Result Comment: AMP (Amphetamine): 500ng/mL, BAR (Barbituates): 200 ng/mL, BZO (Benzodiazepines): 150 ng/mL, BUP (Buprenorphine): 10 ng/mL, RICHIE (Cocaine): 150 ng/mL, mAMP (Methamphetamine): 500 ng/mL, MTD (Methadone): 200 ng/mL, OPI (Opiates): 100 ng/mL, OXY (Oxycodone): 100 ng/mL, PCP (Phencyclidine): 25 ng/mL, PPX (Propoxyphene): 300 ng/mL, THC (Cannabinoids): 50 ng/mL, TCA (Trycyclic Antidepressants): 300 ng/mL Performed By: #### E #### [facility] [address] [place] [address] Dr. Skylar Ramirez DRUG CUT HEADER DRUG CLASS TEST SYSTEM CUT-OFF CONCENTRATIONS ARE FOLLOWS: Normal [facility] Comment on above: Performed By: #### E #### [facility] [address] [place] [address] Dr. Skylar Ramirez mAMP Negative Normal NEGATIVE [facility] Comment on above: Performed By: #### E #### [facility] [address] [place] [address] Dr. Skylar Ramirez MTD Negative Normal NEGATIVE [facility] Comment on above: Performed By: #### E #### [facility] [address] [place] [address] Dr. Skylar Ramirez OPI Negative Normal NEGATIVE [facility] Comment on above: Performed By: #### E #### [facility] [address] [place] [address] Dr. Skylar Ramirez OXY Negative Normal NEGATIVE [facility] Comment on above: Performed By: #### E #### [facility] [address] [place] [address] Dr. Skylar Ramirez PCP Negative Normal NEGATIVE [facility] Comment on above: Performed By: #### E #### [facility] [address] [place] [address] Dr. Skylar Ramirez PPX Negative Normal NEGATIVE [facility] Comment on above: Performed By: #### E #### [facility] [address] [place] [address] Dr. Skylar Ramirez TCA Negative Normal NEGATIVE [facility] Comment on above: Performed By: #### E #### [facility] [address] [place] [address] Dr. Skylar Ramirez THC Positive Abnormal NEGATIVE [facility] Comment on above: Performed By: #### E #### [facility] [address] [place] [address] Dr. Skylar Ramirez ER URINE PROFILEon 3 Bilirubin Ql (U) Negative Normal NEGATIVE [facility] Comment on above: Performed By: #### D MARIBETH, ERUR #### [facility] [address] [address] [address] Skylar Ramirez Clarity (U) CLEAR Normal CLEAR [facility] Comment on above: Performed By: #### D MARIBETH, ERUR #### [facility] [address] [address] [address] Skylar Ramirez Color (U) LT. YELLOW Normal YELLOW [facility] Comment on above: Performed By: #### D MARIBETH, ERUR #### [facility] [address] [address] [address] Skylar DOUGHERTY A micrscopic examination will be performed if indicated. Normal [facility] Comment on above: Performed By: #### D MARIBETH, ERUR #### [facility] [address] [place] [address] Dr. Skylar Ramirez Glucose Ql (U) Negative Normal NEGATIVE [facility] Comment on above: Performed By: #### D MARIBETH, ERUR #### [facility] [address] [place] [address] Dr. Skylar Ramirez Hemoglobin Ql (U) Negative Normal NEGATIVE [facility] Comment on above: Performed By: #### D MARIBETH, ERUR #### [facility] [address] [place] [address] Dr. Skylar Ramirez Ketones Ql (U) Negative Normal NEGATIVE [facility] Comment on above: Performed By: #### D MARIBETH, ERUR #### [facility] [address] [place] [address] Dr. Skylar Ramirez LEUKOCYTES Negative Normal NEGATIVE [facility] Comment on above: Performed By: #### D MARIBETH, ERUR #### [facility] [address] [place] [address] Dr. Skylar Ramirez Nitrite Ql (U) Negative Normal NEGATIVE [facility] Comment on above: Performed By: #### D MARIBETH, ERUR #### [facility] [address] [address] [address] Skylar Ramirez pH (U) 6.0 [pH] Normal 5-[address] [facility] Comment on above: Performed By: #### D MARIBETH, ERUR #### [facility] [address] [place] [address] Dr. Skylar Ramirez SPEC GRAVITY <=1.005 Abnormal 1.005-<=1.[address] [facility] Comment on above: Performed By: #### D MARIBETH, ERUR #### [facility] [address] [place] [address] Dr. Skylar Ramirez UA PROTEIN Negative Normal NEGATIVE/ TRACE [facility] Comment on above: Performed By: #### D MARIBETH, ERUR #### [facility] [address] [place] [address] Dr. Skylar Ramirez UR MICRO IND NOT INDICATED Normal [facility] Comment on above: Performed By: #### D MARIBETH, ERUR #### [facility] [address] [place] [address] Dr. Skylar Ramirez Urobilinogen Qn (U) 0.2 {Evens'U}/dL Normal 0.2 - 1. [address] [facility] Comment on above: Performed By: #### D MARIBETH, ERUR #### [facility] [address] [place] [address] Dr. Skylar Ramirez ETHANOL (BLD ALC)on 07-10-19 23 ALC NOTE NOTE: 80 mg/dl is th e legal limit for a blood alcohol level Normal [facility] Comment on above: Performed By: #### E TH #### [facility] [address] [place] [address] Dr. Skylar Ramirez Ethanol [Mass/Vol] 90 mg/dL Normal [facility] Comment on above: Performed By: #### E TH #### [facility] [address] [place] [address] Dr. Skylar Ramirez ALC NOTE NOTE: 80 mg/dl is th e legal limit for a blood alcohol level Normal [facility] Comment on above: Performed By: #### E TH #### [facility] [address] [place] [address] Dr. Skylar Ramirez Ethanol [Mass/Vol] 116 mg/dL Normal [facility] Comment on above: Performed By: #### E TH #### [facility] [address] [place] [address] Dr. Skylar Ramirez PREG HCG QUALon 07-09-2022 , QUAL Negative Normal NEGATIVE [facility] Comment on above: Performed By: #### P REG #### [facility] [address] [place] [address] Dr. Skylar Ramirez PROF 14(COMP METB)on 023 Albumin [Mass/Vol] 4.4 g/dL Normal 3.4-5.0 [facility] Comment on above: Performed By: #### C SERINA GUPTA, ACET #### [facility] [address] [place] [address] Dr. Skylar Ramirez Albumin/Globulin [Mass ratio] 1.5 {ratio} Normal [facility] Comment on above: Performed By: #### C SERINA GUPTA, ACET #### [facility] [address] [place] [address] Dr. Skylar Ramirez ALP [Catalytic activity/Vol] 65 U/L Normal 46-[address] [facility] Comment on above: Performed By: #### C SERINA GUPTA, ACET #### [facility] [address] [place] [address] Dr. Skylar Ramirez ALT [Catalytic activity/Vol] 16 U/L Normal 14-[address] [facility] Comment on above: Performed By: #### C SERINA GUPTA, ACET #### [facility] [address] [place] [address] Dr. Skylar aRmirez Anion gap [Moles/Vol] 14.2 mmol/L Normal [facility] Comment on above: Performed By: #### C SERINA GUPTA, ACET #### [facility] [address] [place] [address] Dr. Skylar Ramirez AST [Catalytic activity/Vol] 14 U/L Critically low 15-[address] [facility] Comment on above: Performed By: #### C SERINA GUPTA, ACET #### [facility] [address] [address] [address] Skylar Ramirez Bilirubin [Mass/Vol] 0.6 mg/dL Normal 0.2-1.[address] [facility] Comment on above: Performed By: #### C MP, SALYC, ACET #### [facility] [address] [place] [address] Dr. Skylar Ramirez Calcium [Mass/Vol] 9.1 mg/dL Normal 8.5-10.1 [facility] Comment on above: Performed By: #### C MP, SALYC, ACET #### [facility] [address] [place] [address] Dr. Skylar Ramirez Chloride [Moles/Vol] 106 mmol/L Normal 98-[address] [facility] Comment on above: Performed By: #### C MP, SALYC, ACET #### [facility] [address] [place] [address] Dr. Skylar Ramirez CO2 [Moles/Vol] 26.0 mmol/L Normal 21.0-32.0 [facility] Comment on above: Performed By: #### C CANDY, SALYC, ACET #### [facility] [address] [place] [address] Dr. Skylar Ramirez Creatinine [Mass/Vol] 0.78 mg/dL Normal 0.55-1.[address] [facility] Comment on above: Performed By: #### C CANDY SALYC, ACET #### [facility] [address] [place] [address] Dr. Skylar Ramirez EGFR-AF TUNISIAN >60 Normal >=60 [facility] Comment on above: Performed By: #### C MP, SALYC, ACET #### [facility] [address] [place] [address] Dr. Skylar Ramirez EGFR-NON AF TUNISIAN >60 Normal >=[address] [facility] Comment on above: Performed By: #### C MP, SALYC, ACET #### [facility] [address] [place] [address] Dr. Skylar Ramirez Globulin (S) [Mass/Vol] 3.0 g/dL Normal [facility] Comment on above: Performed By: #### C MP, SALYC, ACET #### [facility] [address] [place] [address] Dr. Skylar Ramirez Glucose [Mass/Vol] 129 mg/dL Critically high 74-106 [facility] Comment on above: Performed By: #### C MP, SALYC, ACET #### [facility] [address] [place] [address] Dr. Skylar Ramirez Potassium [Moles/Vol] 3.2 mmol/L Critically low 3.5-5.[address] [facility] Comment on above: Performed By: #### C MP, SALYC, ACET #### [facility] [address] [place] [address] Dr. Skylar Ramirez Protein [Mass/Vol] 7.4 g/dL Normal 6.4-8.2 [facility] Comment on above: Performed By: #### C MP, SALYC, ACET #### [facility] [address] [place] [address] Dr. Skylar Ramirez Sodium [Moles/Vol] 143 mmol/L Normal 136-145 [facility] Comment on above: Performed By: #### C MP, SALYC, ACET #### [facility] [address] [place] [address] Dr. Skylar Ramirez Urea nitrogen [Mass/Vol] 6.0 mg/dL Critically low 6.4-19.[address] [facility] Comment on above: Performed By: #### C MP, SALYC, ACET #### [facility] [address] [place] [address] Dr. Skylar Ramirez Urea nitrogen/Creatinine [Mass ratio] 7.7 mg/mg Normal [facility] Comment on above: Performed By: #### C MP, SALYC, ACET #### [facility] [address] [place] [address] Dr. Skylar Ramirez SALICYLATEon 07-09-2022 SALICYLATE <2.8 Normal <=19.[address] [facility] Comment on above: Performed By: #### C MP, SALYC, ACET #### [facility] [address] [place] [address] Dr. Skylar Ramirez XR HAND RT MIN [...] JJ SILVA Date: 2022-07-09 18:12 Normal [facility] MICRO OTHER TESTSOrdered By: Jose Clay on 03-23-2022 Influenzae A Ag Negative (03/23/22 1:19 AM) Normal Negative [facility] Influenzae B Ag Negative (03/23/22 1:19 AM) Normal Negative [facility] Rapid COV Int NEG Ctl [...] spec) Detected Critically abnormal NOT DETECTED [facility] Comment on above: Result Comment: This test is not yet approved or cleared by the [place] FDA. When there are no FDA-approved or cleared tests available, and other criteria are met, FDA can make tests available under an emergency access mechanism called an Emergency Use Authorization (EUA). The EUA for this test is supported by the [place] of Health and Human Service's (HHS's) declaration [...] used). Performed By: #### E TH #### [facility] [address] [place] [address] Dr. Skylar Ramirez [facility]on SARS-CoV-2 (COVID-19) RNA ANUP+probe Ql (Unsp spec) Not detected Normal NOT DETECTED [facility] Comment on above: Result Comment: This test is not yet approved or cleared by the [place] FDA. When there are no FDA-approved or cleared tests available, and other criteria are met, FDA can make tests available under an emergency access mechanism called an Emergency Use Authorization (EUA). The EUA for this test is supported by the [place] of Health and Human Service's (HHS's) declaration [...] consistent with SARS-CoV-2. Performed By: #### C VDTBH #### [facility] [address] [place] [address] Dr. Skylar Ramirez CBC AUTO DIFFon 08-17-2021 BASO # 0.1 103/ul Normal 0.0-0.[address] [facility] Comment on above: Performed By: #### E TH #### [facility] [address] [place] [address] Dr. Skylar Ramirez Basophils/100 WBC (Bld) 0.6 % Normal 0.2-2.[address] [facility] Comment on above: Performed By: #### E TH #### [facility] [address] [place] [address] Dr. Skylar Ramirez EO # 0.2 103/ul Normal 0.0-0.7 [facility] Comment on above: Performed By: #### E TH #### [facility] [address] [place] [address] Dr. Skylar Ramirez Eosinophils/100 WBC (Bld) 2.0 % Normal 0.9-7.[address] [facility] Comment on above: Performed By: #### E TH #### [facility] [address] [place] [address] Dr. Skylar Ramirez Erythrocyte distribution width (RBC) [Ratio] 13.2 % Normal 11.0-15.[address] [facility] Comment on above: Performed By: #### E TH #### [facility] [address] [place] [address] Dr. Skylar Ramirez Hematocrit (Bld) [Volume fraction] 38.4 % Normal 36.0-48.[address] [facility] Comment on above: Performed By: #### E TH #### [facility] [address] [place] [address] Dr. Skylar Ramirez Hemoglobin (Bld) [Mass/Vol] 13.1 g/dL Normal 12.0-16.[address] [facility] Comment on above: Performed By: #### E TH #### [facility] [address] [place] [address] Dr. Skylar Ramirez IG # 0.02 10e3/ul Normal 0.00-0.03 [facility] Comment on above: Performed By: #### E TH #### [facility] [address] [place] [address] Dr. Skylar Ramirez IG % 0.2 % Normal 0.0-0.5 [facility] Comment on above: Performed By: #### E TH #### [facility] [address] [place] [address] Dr. Skylar Ramirez LYMPH # 3.0 103/ul Normal 1.2-3.[address] [facility] Comment on above: Performed By: #### E TH #### [facility] [address] [place] [address] Dr. Skylar Ramirez Lymphocytes/100 WBC (Bld) 31.8 % Normal 20.5-60.[address] [facility] Comment on above: Performed By: #### E TH #### [facility] [address] [place] [address] Dr. Skylar Ramirez MANUAL DIFF REQ NO Normal [facility] Comment on above: Performed By: #### E TH #### [facility] [address] [place] [address] Dr. Skylar Ramirez MCH (RBC) [Entitic mass] 32.0 pg Normal 26.7-34.[address] [facility] Comment on above: Performed By: #### E TH #### [facility] [address] [place] [address] Dr. Skylar Ramirez MCHC (RBC) [Mass/Vol] 34.1 g/dL Normal 29.9-35.[address] [facility] Comment on above: Performed By: #### E TH #### [facility] [address] [place] [address] Dr. Skylar Ramirez MCV (RBC) [Entitic vol] 93.7 fL Normal 81.0-99.[address] [facility] Comment on above: Performed By: #### E TH #### [facility] [address] [place] [address] Dr. Skylar Ramirez MONO # 0.7 103/ul Normal 0.3-0.[address] [facility] Comment on above: Performed By: #### E TH #### [facility] [address] [place] [address] Dr. Skylar Ramirez Monocytes/100 WBC (Bld) 7.6 % Normal 1.7-12.[address] [facility] Comment on above: Performed By: #### E TH #### [facility] [address] [place] [address] Dr. Skylar Ramirez NEUT # 5.4 103/ul Normal 1.4-6.[address] [facility] Comment on above: Performed By: #### E TH #### [facility] [address] [address] [address] Skylar Ramirez Neutrophils/100 WBC (Bld) 57.8 % Normal 43.0-75.[address] [facility] Comment on above: Performed By: #### E TH #### [facility] [address] [address] [address] Skylar Ramirez Platelet mean volume (Bld) [Entitic vol] 10.9 fL Normal 9.5-13.[address] [facility] Comment on above: Performed By: #### E TH #### [facility] [address] [place] [address] Dr. Skylar Ramirez PLT 275 103/ul Normal 150-[address] [facility] Comment on above: Performed By: #### E TH #### [facility] [address] [place] [address] Dr. Skylar Ramirez RBC 4.10 106/ul Critically low 4.20-5.40 [facility] Comment on above: Performed By: #### E TH #### [facility] [address] [place] [address] Dr. Skylar Ramirez WBC 9.3 103/ul Normal 4.0-11.[address] [facility] Comment on above: Performed By: #### E TH #### [facility] [address] [place] [address] Dr. Skylar Ramirez FREE T3on 08-17-2021 FREE T3 2.08 pg/mlL Critically low 2.91-4.70 [facility] Comment on above: Performed By: #### E TH #### [facility] [address] [place] [address] Dr. Skylar Ramirez FREE T4on 08-17-2021 Free T4 [Mass/Vol] 0.93 ng/dL Normal 0.78-1.34 [facility] Comment on above: Performed By: #### E TH #### [facility] [address] [place] [address] Dr. Skylar Ramirez PROF 14(COMP METB)on 022 Albumin [Mass/Vol] 4.4 g/dL Normal 3.4-5.0 [facility] Comment on above: Performed By: #### E TH #### [facility] [address] [place] [address] Dr. Skylar Ramirez Albumin/Globulin [Mass ratio] 1.6 {ratio} Normal [facility] Comment on above: Performed By: #### E TH #### [facility] [address] [place] [address] Dr. Skylar Ramirez ALP [Catalytic activity/Vol] 45 U/L Critically low 46-[address] [facility] Comment on above: Performed By: #### E TH #### [facility] [address] [place] [address] Dr. Skylar Ramirez ALT [Catalytic activity/Vol] 14 U/L Normal 14-[address] [facility] Comment on above: Performed By: #### E TH #### [facility] [address] [place] [address] Dr. Skylar Ramirez Anion gap [Moles/Vol] 13.7 mmol/L Normal Th [facility] Comment on above: Performed By: #### E TH #### [facility] [address] [place] [address] Dr. Skylar Ramirez AST [Catalytic activity/Vol] 8 U/L Critically low 15-[address] [facility] Comment on above: Performed By: #### E TH #### [facility] [address] [place] [address] Dr. Skylar Ramirez Bilirubin [Mass/Vol] 1.2 mg/dL Critically high 0.2-1.[address] [facility] Comment on above: Performed By: #### E TH #### [facility] [address] [place], [place] [id number] Dr. Skylar Ramirez Calcium [Mass/Vol] 8.7 mg/dL Normal 8.5-10.1 [facility] Comment on above: Performed By: #### E TH #### [facility] [address] [place] [address] Dr. Skylar Ramirez Chloride [Moles/Vol] 104 mmol/L Normal 98-[address] [facility] Comment on above: Performed By: #### E TH #### [facility] [address] [address] [address] Skylar Ramirez CO2 [Moles/Vol] 26.7 mmol/L Normal 21.0-32.0 [facility] Comment on above: Performed By: #### E TH #### [facility] [address] [address] [address] Skylar Ramirez Creatinine [Mass/Vol] 0.83 mg/dL Normal 0.55-1.[address] [facility] Comment on above: Performed By: #### E TH #### [facility] [address] [place] [address] Dr. Skylar Ramirez EGFR-AF TUNISIAN >60 Normal >=60 [facility] Comment on above: Performed By: #### E TH #### [facility] [address] [place] [address] Dr. Skylar Ramirez EGFR-NON AF TUNISIAN >60 Normal >=[address] [facility] Comment on above: Performed By: #### E TH #### [facility] [address] [place] [address] Dr. Skylar Ramirez Globulin (S) [Mass/Vol] 2.8 g/dL Normal [facility] Comment on above: Performed By: #### E TH #### [facility] [address] [place] [address] Dr. Skylar Ramirez Glucose [Mass/Vol] 111 mg/dL Critically high 74-106 [facility] Comment on above: Performed By: #### E TH #### [facility] [address] [place] [address] Dr. Skylar Ramirez Potassium [Moles/Vol] 3.4 mmol/L Critically low 3.5-5.[address] [facility] Comment on above: Performed By: #### E TH #### [facility] [address] [address] [address] Skylar Ramirez Protein [Mass/Vol] 7.2 g/dL Normal 6.1-8.2 [facility] Comment on above: Performed By: #### E TH #### [facility] [address] [place] [address] Dr. Skylar Ramirez Sodium [Moles/Vol] 141 mmol/L Normal 136-145 [facility] Comment on above: Performed By: #### E TH #### [facility] [address] [place] [address] Dr. Skylar Ramirez Urea nitrogen [Mass/Vol] 10.0 mg/dL Normal 6.4-19.[address] [facility] Comment on above: Performed By: #### E TH #### [facility] [address] [place] [address] Dr. Skylar Ramirez Urea nitrogen/Creatinine [Mass ratio] 12.0 mg/mg Normal [facility] Comment on above: Performed By: #### E TH #### [facility] [address] [place] [address] Dr. Skylar Ramirez TSHon 08-17-2021 TSH 0.755 uIU/mL Normal 0.430-3.750 [facility] Comment on above: Performed By: #### E TH #### [facility] [address] [place] [address] Dr. Skylar Ramirez TSH RANGE SEE BELOW Normal [facility] Comment on above: Result Comment: <0.3 4 UIU/ml HYPERTHYROID 0.34-5.60 UIU/ml EUTHYROID >5.60 UIU/ml HYPOTHYROID Performed By: #### E TH #### [facility] [address] [place] [address] Dr. Skylar Ramirez Vital Signs Date Time Vital Sign Value Performing Clinician Facility 07-12-2022 07:30-0400 Body temperature 97.7 [degF] MD Latisha See Work Phone: [facility] 07-12-2022 07:30-0400 Diastolic blood pressure 67 mm[Hg] MD Latisha See Work Phone: [facility] 07-12-2022 07:30-0400 Heart rate 63 /min MD Latisha See Work Phone: [facility] 07-12-2022 07:30-0400 SaO2% (BldA) [Mass fraction] 98 % MD Latisha See Work Phone: [facility] 07-12-2022 07:30-0400 Systolic blood pressure 119 mm[Hg] MD Latisha See Work Phone: [facility] 07-11-2022 20:12-0400 Respiratory rate 16 /min MD Latisha See Work Phone: [facility] 07-11-2022 15:25-0400 Body height 162.56 cm MD Latisha See Work Phone: [facility] 07-10-2022 09:00-0400 Body weight 80.28 kg MD Latisha See Work Phone: [facility] 04-11-2022 12:01-0500 Body temperature 98.42 [degF] Guillermo Leahy [facility] 04-11-2022 12:01-0500 bodymassindex 1.18 Guillermo Leahy [facility] Comment on above: Result Comment: ^~:!ZScore [facility] 04-11-2022 12:01-0500 Diastolic blood pressure 87 mm[Hg] Guillermo Leahy [facility] 04-11-2022 12:01-0500 Heart rate 90 /min Guillermo Leahy [facility] 04-11-2022 12:01-0500 Height/Length Percentile 76.91 Guillermo Leahy [facility] Comment on above: Result Comment: ^~:!Percentile Source -[facility] 04-11-2022 12:01-0500 Height/Length Z-Score 0.74 Guillermo Leahy [facility] Comment on above: Result Comment: ^~:!ZScore [facility] 04-11-2022 12:01-0500 Respiratory rate 20 /min Guillermo Leahy [facility] 04-11-2022 12:01-0500 SaO2% (BldA) [Mass fraction] 100 % Guillermo Leahy [facility] 04-11-2022 12:01-0500 Systolic blood pressure 137 mm[Hg] Guillermo Leahy [facility] 04-11-2022 12:01-0500 weight 1.38 Guillermo Leahy [facility] Comment on above: Result Comment: ^~:!ZSSEVENROOMS [facility] 04-11-2022 12:01-0500 Weight Percentile 91.69 % Guillermo Leahy [facility] Comment on above: Result Comment: ^~:!Percentile Source -[facility] 03-23-2022 01:05-0500 Body temperature 98.06 [degF] Dino Fordkken [facility] 03-23-2022 01:05-0500 bodymassindex 1.47 Lissetten Dokken [facility] Comment on above: Result Comment: ^~:!ZScore [facility] 03-23-2022 01:05-0500 Diastolic blood pressure 79 mm[Hg] Lissetten Dokken [facility] 03-23-2022 01:05-0500 Heart rate 83 /min Sujeyylinn Dokken [facility] 03-23-2022 01:05-0500 Height/Length Percentile 42.45 Lissetten Dokken [facility] Comment on above: Result Comment: ^~:!Percentile Source -[facility] 03-23-2022 01:05-0500 Height/Length Z-Score -0.19 Lissetten kken [facility] Comment on above: Result Comment: ^~:!ZScore [facility] 03-23-2022 01:05-0500 Respiratory rate 16 /min Dino Mccollum [facility] 03-23-2022 01:05-0500 SaO2% (BldA) [Mass fraction] 99 % Dino Mccollum [facility] 03-23-2022 01:05-0500 Systolic blood pressure 117 mm[Hg] Dino Mccollum [facility] 03-23-2022 01:05-0500 weight 1.42 torito Mccollum [facility] Comment on above: Result Comment: ^~:!ZScore [facility] 03-23-2022 01:05-0500 Weight Percentile 92.21 % torito Mccollum [facility] Comment on above: Result Comment: ^~:!Percentile Source -C DC Encounters Encounter Date Encounter Type Care Provider Facility Start: 12-24-2023 ambulatory ALLI PUENTE Facili ty: [facility] Start: 06-20-2023 End: 06-21-2023 ambulatory ALLI A CINDI Facility:[facility] [place] [facility] Start: 05-23-2023 End: 05-24-2023 ambulatory ALLI A CINDI Facility:[facility] [place] Start: 05-18-2023 ambulatory [employer] Socorro Santana Facilit y: [facility] Start: 10-03-2022 End: 10-03-2022 Emergency department patient visit [facility] Facility:[facility] Start: 09-20-2022 ambulatory Rajesh jungty:[facility] Start: 08-03-2022 End: 08-11-2022 Pre-admission assessment Dunia Cristina [facility] Start: 07-20-2022 End: 07-21-2022 ambulatory Dunia Cristina Facility:[facility] Start: 07-20-2022 End: 07-20-2022 Patient encounter procedure Dunia Cristina [facility] Start: 07-19-2022 End: 07-20-2022 ambulatory Dunia Crisitna Facility:[facility] Start: 07-19-2022 End: 07-19-2022 Lab Drop off Dunia Cristina [facility] Start: 07-10-2022 End: 07-12-2022 Evaluation and management of inpatient Harikajero Will Facility:[facility] Start: 07-09-2022 End: 07-12-2022 Evaluation and management of inpatient MD Latisha See Work Phone: [address] Work Phone: Start: 07-09-2022 End: 07-10-[address] LATISHA SEE . Facility:[facility] Start: 04-11-2022 End: 04-11-2022 Emergency department patient visit Guillermo Leahy [facility] Start: 03-23-2022 End: 03-23-2022 Emergency department patient visit Dino Lynn Letipolina [facility] Start: 02-28-2022 End: 02-28-2022 ambulatory Jack Khan Other [facility] Other Start: 02-28-2022 FQ visit new patient Jack Khan [facility] Start: 02-24-2022 End: 02-24-[address] LATISHA SEE . Facility:[facility] Start: 11-25-2021 End: 11-25-[address] LATISHA SEE . Facility:[facility] Start: 11-22-2021 End: 11-22-[address] LATISHA SEE . Facility:[facility] Start: 09-09-2021 End: 09-10-[address] LATISHA SEE . Facility:[facility] Start: 08-17-2021 End: 08-18-[address] LATISHA SEE . Facility: Plan of Treatment Date Care Activity Detail Author Start: 07-12-2022 [facility] Start: 07-09-2022 Referral to Patent Law Specialist [facility] Start: 07-09-2022 Sleep disorder assessment [facility] Start: 07-09-2022 Hospital admission [facility] Patient Education Depression, Ad ult (DC) [facility] DC Instructions [facility] Work Phone: Patient referral [facility] Work Phone: Immunizations Immunization Date Immunization Notes Care Provider Fa cility 07-11-2022 influenza, injectabl e, quadrivalent, preservative free MD Latisha See Work Phone: [facility] Payers Date Payer Category Payer Self-pay 2003 Unknown [id number] 2.16.84 [id number] 2003 Unknown [id number] 2.16.84 [id number] 2003 Unknown [id number] 2.16.84 [id number] 2003 Unknown [id number] 2.16.84 [id number] 2003 Unknown [id number] 2.16.84 [id number] 2003 Unknown [id number] 2.16.8 [id number] 2003 Unknown [id number] 2.16.8 [id number] 2003 Unknown [id number] 2.16.8 [id number] 2003 Unknown [id number] 2.16.8 [id number] 2003 Unknown [id number] 2.16.8 [id number] 2003 Unknown [id number] 2.16.8 [id number] 2003 Unknown [id number] 2.16.8 [id number] 1981 Unknown [id number] 2.16.84 [id number] 1959 Unknown [id number] 2.1 [id number] 1959 Unknown [id number] Unknown HCAP/HFA/FAP Active [id number] Unknown [id number] 2.16.8 [id number] Unknown [id number] 2.16.8 [id number] Social History Date Type Detail Facility Sex Assigned At [facility] Tobacco smoking status No Smokin g Status Entered [facility] Start: 07-10-2022 [facility] Start: 2005 Sex Assigned At Female F [facility] Goals Date Patient Goal Desired Activity /State Functional Status Date Assessment Result Facility 07-12-2022 Functional status Patient at Baseline [facility] Work Phone: 04-11-2022 Functional Status N/A [facility] 03-23-2022 Functional Status Yes [facility] Mental Status Date Assessment Result Facility 07-12-2022 Cognitive function Cognitive Sta tus Patient is Progressing Toward Baseline [facility] Work Phone: Clinical Notes 09-09-2021 to 07-12-2022 Note Date & Type Note Facility 07-12-2022 Discharge summary Note Date/Time July 12, 2022 9:50am [facility] [address] [place] [address] Discharge Summary Signed Patient: Leny Galvez MR#: [id number] : 2005 Acct:[id number] Age/Sex: 17 / F Adm Date: 3 Loc: Room: [address] [place] [address]: Rajesh Solis MD Copies to: [...] patient punched a tree, and x-ray from [facility] was negative for fracture. The patient [...] No activity restrictions Instructions: Depression, Adult (DC), [facility] Behavioral Health DC Instructions Prescriptions: No Action No known home meds Follow Up: [facility] [Outside] [facility] [Outside] ( manager mail: (Insert date/time here) Therapy:? (insert date/time here) Intake: (Insert date/time here) Please bring a copy of your photo ID, insurance card, and proof of household income.? Psychiatry: (Insert date/time here) Group: (Insert date/time here ) ) Latisha See MD [Primary Care Provider] - Documented By: Dean Solis MD 3 [id number] Signed By: <Electronically signed by Dean Solis MD> 07/12/22 0950 [facility] Work Phone: 1(691) 224-450903-28-2023 Progress note Author Dean gutierrez [facility] July 11, 2022 8:55am Note Date/Time July 11, 2022 8:5 5am [facility] [address] [place] [address] Psychiatry Progress Note Signed Patient: Leny Galvez MR#: [id number] : 2005 Acct:[id number] Age/Sex: 17 / F Adm Date: 3 Loc: Room: [address] [place] [address] Type : ADM IN Attending Dr: Rajesh [...] changes Documented By: Dean Solis MD 3 0809 Signed By: <Electronically signed by Dean Solis MD> 07/11/22 0855 [facility] Work Phone: 1(481) 957-336103-28-2023 History and physical note Author Dean gutierrez [facility] July 11, 2022 8:51am Note Date/Time July 11, 2022 8:5 1am [facility] [address] [place] [address] Psychiatry H&P Signed Patient: Leny Galvez MR#: [id number] : 2005 Acct:[id number] Age/Sex: 17 / F Adm Date: 3 Loc: Room: [address] [place] [address] Type: ADM IN Attending Dr: Rajesh Solis [...] patient punched a tree, and x-ray from [facility] was negative for fracture. The patient [...] History (Updated 07/10/22 @ 00:02 by Janel Contreras RN) No pertinent past surgical history Family History (Updated 07/10/22 @ 00:03 by Janel Contreras RN) Other No significant family history Social [...] signed by Dean Solis MD> 07/11/22 0851 [facility] Work Phone: 1(905) 158-689512-27-2022 Hospital Discharge instructions Patient Education 04/11/2022 12:35:07 Hemorrhoids, Osjt-dr-Klen Hemorrhoids Hemorrhoids are swollen veins that may [...] 3 times a day. General instructions Take cefi-wbt-tcfiosc and prescription medicines only as told by [...] 01/09/2009 Document Revised: 04/10/2019 Document Reviewed: 08/22/2018 [employer] App Patient Education Level Chef. Follow Up Care 04/11/2022 11:59:16 With:Rodolfo COOK Address: [address] [place] [address] [address] Business (1) When:04/14/2022 12:28:41 Comments:Follow-up with Dr. Cook for further evaluation of your hemorrhoids. With:LATISHA SEE Address: [address] [place] [id number] Business (1) When:04/14/2022 12:28:33 Comments:Follow-up with your primary care provider in 3 to 5 days. If symptoms worsen, do not improve, or new symptoms arise please report back to emergency department for further evaluation. [facility]12-08-2022 Evaluation + Plan noteExtracted from: Title:ED Note [...] PCR Influenza A&B Ag Rapid COVID Antigen ([facility]) Rapid Strep w/rfx [facility]12-08-2022 Hospital Discharge instructions Patient Education 03/23/2022 02:03:19 Upper Respiratory Infection, Adult, Qdvh-bz-Zhan Upper Respiratory Infection, Adult An upper respiratory [...] and other clear broths. General instructions Take qhvp-uvt-xstcqaz and prescription medicines only as told by [...] not have soap and water, use hand forestry technician. Avoid touching your mouth, face, eyes, or [...] get better within 7 10 days. Take xbtl-jcc-gmjvgya and prescription medicines only as told by your doctor. This information is not intended to replace advice given to you by your health care provider. Make sure you discuss any questions you have with your health care provider. Document Released: 09/18/2008 Document Revised: 04/10/2019 Document Reviewed: 11/23/2017 Play[employer] App Patient Education 2020 [employer]. Follow Up Care 03/23/2022 01:03:44 With:LATISHA SEE Address: [address] [place] [address] Business (1) When:03/26/2022 Comments:You can take the cough medication every 6 hours as needed for cough. Use Motrin, Tylenol every 6 hours as needed for pain. Please follow-up with your primary care doctor next 2 to 3 days. Please return to the ED for any new or worsening symptoms. [facility]11-15-2022 Evaluation note* Encounter Date Diagnosis Assessment Notes [...] and elevate to decrease pain and swelling. [facility] Other 11-11-2022 NotePROCEDURE: XR HAND RT MIN [...] Electronically authenticated by: SILVANA AVERY Date: 2022-02-24 12:40[facility]11-11-2022 NotePROCEDURE: XR HAND RT MIN 3V, [...] Electronically authenticated by: SILVANA AVERY Date: 2022-02-24 12:40[facility]05-27-2022 NoteEEG Procedure Date:09/09/2021 CLINICAL HISTORY: This [...] evidence of epileptiform activity. Please correlate clinically[facility] Future App[facility]ments Appointment Date:07/21/2022 02:30:00 PM Scheduled Provider: Location:.[facility] Appointment Type:US Abdominal/Pelvis (FT) Diagnostic Tests Pending * Chlamydia/Gonococcus, ANUP 07/19/22 Future Scheduled Tests Radiology* US Pelvis Non-OB Complete 07/21/22 * US Transvaginal Non-OB 07/21/22 [facility] Future Appointments Appointment Date:07/21/2022 02:30:00 PM Scheduled Provider: Location:.[facility] Appointment Type:US Abdominal/Pelvis (FT) Diagnostic Tests Pending * DHEAS 07/20/22 * FSH and LH 07/20/22 * Insulin Level Total 07/20/22 * Testosterone Level Total 07/20/22 Future Scheduled Tests Radiology* US Pelvis Non-OB Complete 07/21/22 * US Transvaginal Non-OB 07/21/22 [facility] Diagnosis Onset Date Resolution Status Major depressive disorder, recurrent, moderate acute Suicidal ideation [facility] Work Phone: History general Narrative - Reported* Type Description Date Medical History right hand injury [facility] Other Hospital course Narrative No data available for this section [facility] Additional Instructions Regular diet [facility] Work Phone: Hospital Discharge instructions No data available for this section [facility] No data available for this section [facility] Summary Purpose Family History No Family History Records Found Relationship Condition Age at Onset Recorded Date/T gisela Not Specified No pertinent family history Unknown Advance Directives No Advanced Directives Records Found Advance Directive Response Recorded Date/ Time Advance Directives No July 09, 023 10:26pm Chief Complaint and Reason for [...] Rajesh Solis MD Admit Provider, Attending Pr ovider Active INFORMATION SOURCE (unrecogn ized section and content) DATE CREATED AUTHOR 07/14/2022 [facility] DATE CREATED AUTHOR AUTHOR'S ORGANIZ ATION 01/07/2023 [facility] DATE CREATED AUTHOR AUTHOR'S ORGANIZ ATION 06/21/2023 [facility] FOR RECORDS PERTAINING TO PATIENTS WHO ARE [...] BE BASED ON THE PRIMARY CLINICAL RECORDS. [email or web address] provides no warranty or guarantee of the accuracy or completeness of information in this document.
[2023-06-30 13:48] LABS: Internal Control Within Normal Limits; Strep A Antigen Screen Negative
== END 2023-06-30 14:02 | disposition home or self-care (01) ==
PROVIDERS: Emergency Provider Emergency Medicine
DX: B37.31 Acute candidiasis of vulva and vagina (principal); J02.9 Acute pharyngitis, unspecified; Z79.899 Other long term (current) drug therapy; F17.210 Nicotine dependence, cigarettes, uncomplicated
CPT/HCPCS: 87070; 87880; 99283

== ENCOUNTER 2023-08-09 12:20 | Emergency (ER) | payer OTHER, SELFPAY ==
[2023-08-09 12:27] VITALS: BP 138/98; PULSE 107; TEMP 37.5; O2SAT 100
--- OUTSIDE RECORDS SUMMARY | 2023-08-09 13:13 | XMS_ITS | CCD ---
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 Problem List/Past Medical History Ongoing Acute upper [...] inactivated 05/23/2023 G (more content not included)... [facility] Comment on above: Result Comment: Elec tronically Signed By: ALLI PUENTE CNP\.br\Date and Time Signed: 06/21/23 07:31 EST Physician Referralon 024 Physician Referral [id number]#[id number] [facility] Ambulatory Visit Summaryon 0 06-20-2023 Ambulatory Visit Summary THUY MALIK :2005 Visit Date:06/20/2023 Ambulatory Visit Instructions Your [...] PM EDT With: ALLI PUENTE CNP Where: [facility] Family Medicine [facility] Patient Educationon 06-20-19 24 Patient Education [...] to help relieve symptoms, such as: ? Pioz-wqw-alhunaj cold medicines. ? Medicines to reduce coughing [...] other clear broths. General instructions ? Take gefv-kej-klnlsfl and prescription medicines only as told by [...] cannot use soap and water, use hand rouge mixer. ? Avoid touching your mouth, face, eyes, [...] get better within 7?10 days. ? Take wuuv-rpx-meahoxw and prescription medicines only as told by your doctor. This information is not intended to replace advice given to you by your health care (more content not included)... [facility] Ambulatory Visit Summaryon 0 05-23-2023 Ambulatory Visit Summary THUY MALIK :2005 Visit Date:05/23/2023 Ambulatory Visit Instructions Your [...] 1:40 PM EST With: Socorro Casarez Where: [facility] Family Medicine [facility] Consent for Flu Vaccineon Consent for Flu Vaccine [id number] [facility] Family Medicine Office/Clini c Noteon 05-23-2023 Family [...] # 90 tab(s), Refills(s) 1, [id number], 168, cm, 05/23/23 13:08:00 EST, Height/Length Dosing, 90, kg, 05/23/23 13:08:00 EST, Weight Dosing Completed & reviewed the PHQ-9 score of 13 and the MARCIAL-7 score of 18 today in the office escitalopram, 20 mg = 1 tab(s), Oral, Daily, # 90 tab(s), Refills(s) 1, [id number], 168, cm, 05/23/23 13:08:00 EST, Height/Length Dosing, 90, kg, 05/23/23 13:08:00 EST, Weight Dosing f/u in 4 weeks Ordered: influenza virus vaccine, inactivated, 0.5 mL, Injection, IntraMuscular, Once, Stop date 05/23/23 14:00:00 EST, Routine, Start date 05/23/23 14:00:00 EST trazodone, 50 mg = 1 tab(s), Oral, Once a day (at bedtime), # 90 tab(s), Refills(s) 1, [id number], 168, cm, 05/23/23 13:08:00 EST, Height/Length Dosing, 90, kg, 05/23/23 13:08:00 EST, Weight Dosing 2. Encounter to establish care (Z76.89: Persons encountering health services in other specified circumstances) 3. Encounter for immunization (Z23: Encounter for immunization) Ordered: influenza virus vaccine, inactivated, 0.5 mL, Injection, IntraMuscular, Once, Stop date 05/23/23 14:00:00 EST, Routine, Start date 05/23/23 14:00:00 EST FIRST VACCINE w/o Fur Operator Admin Charge [id number] Orders: escitalopram, 20 mg = 1 tab(s), Oral, Daily, # 90 tab(s), Refills(s) 1, [id number], 168, cm, 05/23/23 13:08:00 EST, [...] 1 refills (more content not included)... Normal [facility] Comment on above: Result Comment: Elec tronically Signed By: ALLI PUENTE CNP\.piyush\Date and Time Signed: 05/23/23 13:50 EST Patient Educationon 05-23-19 24 Patient Education Mental and Behaviora Health Managing [...] or salt (sodium). General instructions ? Take rzkd-ioy-xjpqsgj and prescription medicines only as told by [...] Kristan (ADAA): www.adaa.org ? Mental Health Kristan: www.mentalhealthamerica.ne (more content not included)... Normal [facility] Chlamydia/Gonococcus, NAAon 10-06-2022 C. trachomatis rRNA ANUP+probe Ql (Unsp spec) Negative Invalid Interpretation Code Negative [facility] Comment on above: Performed By: #### 1 [id number], [id number], [id number], [id number] ####[facility] [address] [place] [address] N. gonorrhoeae rRNA ANUP+probe Ql (Unsp spec) Negative Invalid Interpretation Code Negative [facility] Comment on above: Result Comment: Perf ormed at: =[facility] [id number] MD Griffin Loyd Performed By: #### 1 [id number], [id number], [id number], [id number] ####[facility] [address] [place] [address] C Urineon 10-05-2022 Bacteria identified Cx Nom [...] Locations R1: This test was performed at: [facility], [address] [place] [address], [id number], [facility] Comment on above: Performed By: #### 1 [id number], [id number], [id number], [id number] ####[facility] [address] [place] [address] Consent for Treatmenton 09-15 Consent for Treatment [id number]:127 Normal [facility] Discharge Instructionson Discharge Instructions [id number]:12 7 Normal [facility] ED Clinical Summaryon 2022 ED Clinical Summary (Inserted Image. Brianna ble to display) [address] [address] ED Clinical Summary Person Information Name: THUY MALIK Kristan/[facility] Age: 17 Years : 2005 Sex: Female Language: Italian PCP: BRIONNA SEE MD Marital Status: Single Visit Id: [...] 10/03/2022 15:55:29 10/03/2022 15:55:29 10/03/2022 15:55:29 ADDRESS: [address] [place] [id number] PHYS DOC NOTES: MEDICAL INFORMATION: Prescriptions Given: New Medications [id number], [address] [place], [place] [id number], [phone] doxycycline (doxycycline monohydrate 100 mg oral tablet) 1 Tablets By Mouth 2 times a day for 10 Days. Refills: 0. Medications to Continue with No Changes Other Medications brompheniramine/dextrometh orphan/PSE (Bromfed DM oral syrup) 5 Milliliter By Mouth 4 times a day as needed for cough and congestion. Refills: 0. PATIENT EDUCATION INFORMATION: Instructions: Follow up: With: Address: When: Kevin TRIVEDI, [facility] [address], [place] [address] Business (1) In 3 days 10/06/2022 With: Address: When: BRIONNA SEE [address] [place], [place] [id number] Business (1) In 3 days DIAGNOSIS: Cervicitis; Exposure to chlamydia Normal [facility] ED Note-Physicianon 10-04-19 ED Note-Physician Basic Information Time Seen: Guillermo Leahy DO 10/03/2022 14:12 Chief Complaint patient c/o yellow vaginal discharge x2 weeks. states that she was just informed 4 days ago that a sexual partner tested positived for chlamydia (last encounter 4 wks ago) History of Present Illness Thuy Malik is a 17 year old female who [...] this plan. I, Dr. Leahy had a qhak-vx-olhp interaction with the patient. I personally performed [...] day(s), # 20 tab(s), Refills(s) 0, Pharmacy: [facility][id number], 168, cm, 10/03/22 14:11:00 EDT, Height/Length Dosing, 76, kg, 10/03/22 14:11:00 EDT, Weight Dosing Chlamydia/Gonococcus, ANUP U Beta Hcg Qual UA With Cult Reflex Urine Culture Disposition Plan Discharge Prescription List Prescriptions doxycycline monohydrate 100 mg oral tablet, 100 mg= 1 tab(s), Oral, BID Follow-up With When Contact Information Kevin Buckner In 3 days 10/06/2022 EDT [address], [address] [place] [address]- Business (1) Additional Instructions: BRIONNA SEE In 3 days [address] [place] [id number] Business (1) Additional Instructions: Problem List/Past Medical [...] (10/03/22 1 (more content not included)... Normal [facility] Comment on above: Result Comment: Elec tronically Signed By: Aicha Burris\.br\Date and Time Signed: 10/03/22 14:53 EDT\.br\Electronically Co-Signed By: Guillermo Leahy DO\.br\Date and Time Co-Signed: 10/03/22 15:45 EDT ED Patient Education Noteon 10-03-2022 ED Patient Education Note Normal [facility] ED Patient Summaryon 023 ED Patient Summary (Inserted Image. Brianna ble to display) [address] [address] Patient Discharge Instructions Person Information Name: THUY MALIK Age: 17 Years [facility]: [id number] Arrival Date: 10/03/2022 14:06:21 Discharge Diagnosis: Cervicitis; Exposure to chlamydia Primary Care Physician: BRIONNA SEE MD Provider Information Primary Provider: Guillermo Leahy DO Advanced Fisher Crab:None The exam and treatment you received in the Emergency Department were for an urgent problem and are not intended as complete care. It is important that you follow up with a doctor, nurse practitioner, or physician?s operator assistant i cementing for ongoing care. If your symptoms become worse or you do not improve as expected and you are unable to reach your usual health care provider, you should return to the Emergency Department. We are available 24 hours a day. THUY MALIK has been given the following list of patient education materials, prescriptions and follow-up instructions: Follow-up Instructions: With: Address: When: Kevin Buckner [address] [place] [address], [address] [address] Business (1) In 3 days 10/06/2022 With: Address: When: BRIONNA SEE [address] [place] [phone] Business (1) In 3 days In the event that this physician does not participate in your insurance network, please consult with your insurance company to find a nearby participating provider. Patient Education Materials: A MESSAGE TO ALL PATIENTS REGARDING OPIOIDS PRESCRIPTION OPIOIDS: WHAT YOU NEED TO KNOW Prescription opioids can be used to help relieve wdfvvcdi-mr-zdpvkx pain and are often prescribed following a [...] guidance from the Food and Drug Administration (www.fda.gov/Drugs/Resourc esForYou). ? Visit www.cdc.gov/drugoverdose to learn about the risks of opioids abuse and overdose. ? If you believe you may be struggling with addiction, tell your health career development counselor (more content not included)... Normal [facility] U BetaHcg Qualon 10-03-2022 HCG.beta subunit (U) [Moles/Vol] Negative Normal [facility] Comment on above: Performed By: #### 1 [id number], [id number], [id number], [id number] ####[facility] [address] [place] [address] UA With Cult Reflexon 2022 Bacteria LM Ql (Urine sed) 1+ /HPF Abnormal Trace [facility] Comment on above: Performed By: #### 1 [id number], [id number], [id number], [id number] ####[facility] [address] [place] [address] Crystals LM Ql (Urine sed) Present Normal [facility] Comment on above: Performed By: #### 1 [id number], [id number], [id number], [id number] ####[facility] [address] [place] [address] Epithelial cells.squamous LM.HPF (Urine sed) [#/Area] /[HPF] Normal 0-2 [facility] Comment on above: Performed By: #### 1 [id number], [id number], [id number], [id number] ####[facility] [address] [place] [address] Coppock.plasma/Coppock .RBC (Bld) [Mass ratio] 0-3 Normal 0-3 [facility] Comment on above: Performed By: #### 1 [id number], [id number], [id number], [id number] ####[facility] [address] [place] [address] Mucus Ql (Urine sed) 3+ Normal [facility] Comment on above: Performed By: #### 1 [id number], [id number], [id number], [id number] ####[facility] [address] [place] [address] WBC LM.HPF (Urine sed) [#/Area] 6-15 Abnormal 0-5 [facility] Comment on above: Performed By: #### 1 [id number], [id number], [id number], [id number] ####[facility] [address] [place] [address], [place] [address] Bilirubin Ql (U) Negative Normal Negative [facility] Comment on above: Performed By: #### 1 [id number], [id number], [id number] ####[facility] [address] [place] [address] Clarity (U) CLEAR Normal Clear [facility] Comment on above: Performed By: #### 1 [id number], [id number], [id number], [id number] ####[facility] [address] [place] [address] Color (U) YELLOW Normal Yellow [facility] Comment on above: Performed By: #### 1 [id number], [id number], [id number] ####[facility] [address] [place] [address] Glucose Test strip (U) [Mass/Vol] Negative Normal Negative [facility] Comment on above: Performed By: #### 1 [id number], [id number], [id number] ####[facility] [address] [place] [address] Hemoglobin Ql (U) Negative Normal Negative [facility] Comment on above: Performed By: #### 1 [id number], [id number], [id number], [id number] ####[facility] [address] [place] [address] Ketones (U) [Mass/Vol] Negative Normal Negative [facility] Comment on above: Performed By: #### 1 [id number], [id number], [id number], [id number] ####[facility] [address] [place] [address] Nitrite Ql (U) Negative Normal Negative [facility] Comment on above: Performed By: #### 1 [id number], [id number], [id number], [id number] ####[facility] [address] [place] [address] pH (U) 7.0 [pH] Invalid Interpretation Code 5.0-9.0 [facility] Comment on above: Performed By: #### 1 [id number], [id number], [id number], [id number] ####[facility] [address] [place] [address] Protein (U) [Mass/Vol] Negative Normal Negative [facility] Comment on above: Performed By: #### 1 [id number], [id number], [id number], [id number] ####[place] [id number] Specific gravity (U) [Rel density] 1.020 Invalid Interpretation Code 1.005-1.03 0 [facility] Comment on above: Performed By: #### 1 [id number], [id number], [id number], [id number] ####[address] [address] Type of Urine collection method Clean Catch Normal [facility] Comment on above: Performed By: #### 1 [id number], [id number], [id number], [id number] ####[address] [address] Urobilinogen Qn (U) 1.0 {Evens'U}/dL Normal 0.0-1.0 [facility] Comment on above: Performed By: #### 1 [id number], [id number], [id number], [id number] ####[address] [address] WBC Auto Ql (U) TRACE Abnormal Negative [facility] Comment on above: Performed By: #### 1 [id number], [id number], [id number], [id number] ####[address] [address] Coding Summary.on 07-28-2022 Coding Summary. CD:[id number] Ww+PGh lYWQ+GL3MGTVeV21btFRbvX1jL 0NMTElOSywgQVBQTElOSyIgbmF zZH6mbFJoLCJw IC8+PM7fSRCfYtihcJUwm1S3mU I2P35eas1vUBevtUR7OAOnIcGw qaadt4nllLi6HHllFiflQjZx ANPciU92FLJ9qJ58Hs55mBSizI Iue7pqvHg4WsEgIYGjTWX9vZon AQmtd5YjDWIdM80rvZAan3W3 OCYpkLmliAJhGdSwvMT3sQ9xVT wkmpkcz6lkxqqoFir7ht60wPYu r9V1lVM6M4WhwoO1MOLddRSd VknceENLtG8hzpkop4vnqfbzYo MzLAQlHPd3HAj4HNFarTchWhHw OZ15KJX7TFTmygLgQ1SfPTLx xWybVfN3h2W5Vq9KX7VKOfmrR0 VNTUFSWTwvdGQ+WH82nh90F6Sp VjrmGmc2GZGsTPZ8tSB9kG4d NHObEChzc9X2iAJ0O1QuosLaux 4st2vwGBFeGXjmL68tyCKek0O7 AKMzcIW2XCLwuFqiVfPxdD47 Oyc+MZHraSguy1OaAgfbs5ngs8 pkuSy4ZtvtZQSfezEfnVauYNA6 d3ObVt4wXTZhwHD6fSR8eM2k YwNdTxX1LUqrU387OgWmmBSjOg itX86fN0QohRC+ZOTxShr8UARl aJziOJ0jV0YlOYCgrjiamPMd nJzuWJ3eJRDpkqceDLImiC7qGA KvM9r3OlAkHiT8IYclY5QjKTZs snwaNv79cA5zFuGjReT7DJwr Y1QqyoK7TXPyeYEoYHiuGCV8K6 3gp2H8JAVvKJQuZBQ7tNT2yA0p bGlnbjogbGVmdDsgdmVydGlj ASwnAFdgL251AICrrCohIeJmMU luZyBEYXRlOiAgMDQvMTQvMjAy MzwvdGQ+XJDbYQQ9fAnhWGPj pHCgOFxeOi4gqOiiiNswKY3zZZ EtiebhLRXuxS2kFMDsbTTeiAhg DV8kQRGutcfeh272AaPxUPC1 FGRbePUhW2PckB9cIqIiVPChSE MrY0HjeMGoMTwcK819NErpIvH0 VJBnggLfN2DcEEWaeJhbDwB7 x8C1Rc8Qh0KrrzdcL4QwmKJeJu XxJadyOIn2G9UsRvfgoQP+PC90 ARLtIF98TKe7ZWZ5wJvoNRts ZUGrK7EsaF0nOvHmBRWuBUOlBs c+PHRhYmxlIHdpZHRoPScxMDAl PmFdcXivDB2hKu1qTRLgHZDo bXarvNLbIcCun0vkKJFtEUloJG 5ijRduS7BqwSG7JVMtw0i0Kp55 P73dM5TakTZ+WGDmqZK2uRL8 aS3aVgVcSkV1MGbtK307ItTqmD CeTtpzv6tvz6eljGo8VnN7BAGm cqDtzUzsXDC5l8KvUr13Z57m IHdpZHRoPSIxNSUiIHZhbGlnbj 4taF7mLm2+ACMgnIR7jLZ3hF4y CpMlPdF1TBfsM912RdUhrAKv Lxhxi8bct4vdmVv2HhQaEXNewz CezNiiPJN3h2BkBq74B1XgbHua w6TcCtp0zq61hOUrd3W2eJV8 L8FyXBQyeqrskTJniCnlXU2zWR ScievyHHHxeY8aZEObX4m6CnZm PwM3TTmnN8BfutL4UDSqoZIc EWAneZUSiJ3miztrc3wdhagiVy PnPNTnLVe7CIm8OXHopNzuWiRv IZM5LaS2ZKT8rAYwfC8qkTgj oltdcS5eAdn+SKL5vBUogYIMEV 1lOjwvdGQ+AKBuDTE6mXirXLpe CVBmwE3kIQQeP3u0VgZzRtC5 YBddN4AgujX9NZGkvSZgMCBgiB UVfK5zoxuju6bzmpgfVuRmKSGh QRf2SOp2KZUtwXbsCfKhLIM6 ErL0XBT3oOJmnX8zxIcetqivmW 9wOyc+XdbshIohLEP1PVd3H5Cj Dax2AWLiqKinTB1cvLMjSZco An6vvCabwLokGZ8lERIixuypi0 25NwYnl0twSEEfcNXxNZtrWNQ4 R16vm3A9QGHjWLCnUKP1iQD1 bN0seWlzaoflfDGfjDswnoTctG niODnlVWutG386RAWgiQxmOyAn UBx3Q5YkYcv5BCRugGdbUC5p wZIxMFvlRg6hoMsrgIwqHI0bBB Bixqnqs697JoHdz1iiSAXlhLPc ZRwqSCC7J28ao5Q9LTKgMKCb PGO7kTV3fZ9flKwrcrjdzTUhiH mhnmZqpMomCJqwNDmrA208LHIr gDrvYdEioJm5Q3UqZzo8XDMh mGwoXQ2ueOCwUIhuOf0aoEswzS giDY6kZDBfhzgam108SfGnf8rh LWVswJZvORaaOBI0C75wg7Q9 PYUmAXXjIKL5fFZ8aI1akMzrsm ogbGVmdDsgdmVydGljYWwtYWxp Z201ILRxiKewSeUtoSwpjdGh HXfnWIy1Z8CrBdyisLZ+PC90YW LlWS78vKWapMBzh1qleCw4UrQp NNQcCKP0rDtaJUzjl6VxKEBp K08iiZFni8L3WGMogDylzUFpNb EbgGU4cQ4aCHpwzkjre0enficx Wkkla8zrcz96mH63I21wDZxf JJOiQZWdWJNxZYDmtXqoua6kdX 9wIi8+AHPvnEI4nNV6qA6yNVDn UkY2HVndF721MpVztYBbSvtj p3bbg6ekdFr6NgN9QCNyrdFyoQ wbRSB3x7NxJv44W01lMJfcHCTl ERExLJCaWWImiYzrbl0ggJ6n Ii8+LJEaoIZ2jIH6aN4dIgDiKy F4SPrfM096KzWbrXMiDoqaQ17x L7KsdVV+GEGoSqw5IDZmfHrl QF3ddCScGGlxCm0gZLU6ApLoBx UnHBrlV6FjUORmcotxqxqbxBZ4 HSLtSVGbxS75Ds5aaOdjHHAa tRRLkT3gqrccp3gkiekkWyVnTR HiCIy1GZx8TENkiYagBrXcDJK8 QlB4BCJ0oHHkiW2wdVwdelmw dB0cN4JlPXDlknygPf13bQ1qLu HkOtS5KEnlRgp+V7mFM70JJGNR UFbSOOAXYV11RZ94tSPjw4M6 sHW5P2FrNXFpgzqxgzidfAS0ZS PdQYMuwG11mGTfXTrdOf8re7Z5 a001RUDvUUAwhJ07Hj2gbDur ORHixGFXlZ2gkebun8abmybuMd DcIDMrTKz3TYv1CQOjxFpaPxXm RAH8MoK9DAX0eEVfbP4auOdp sfgxjQ1sCxy+MDIvMjYvMjAwND wvdGQ+VDZdUFZ9kSgaPLmuPBXm hT3jCWPeO4r0TqKfJzJ1TMgd A4FxTNKcemeiYg25vC6aIjIcEz M0OKvfX3DfceT9HMKfhGMdGNwf LLE4O17pd6E4RDKlTZDbSJB0 mKB7dM4baGiqypsggPAuwCtowz RftFnoGAtbBKtfL193AXOsgFiw QzL1UDrcXNJvLP01MX49cVOy q2B2vPK4B6NmGBFmebrafdixiK H2PXYrBPZqwX20hQAaAZgsYf7h u0Q1n983TOGxBBBfjM48Oe3f rXfmRKTmlQXGmJ1gasvbm6dueq xrTsAxLBUzNDo2XYy8GIQttGwd EqToIFY7JpC6FFP8jVDyiM6g nFwilgcrsK0tFwa+RmVtYWxlPC 17EL98yHXut4N5dME2C9FmZYXo gybyttjyjSE3PCDrUZOjnL98 vDNuIXlvDs6pb7R8b132VZHqAJ QpxC11Fh6zxGalTVBlfXSZqT2p gbtkb7euberqHkXpVMGdDSj2 MTd4XVJzkJumTdDsZVE1LkB3XX X8fMUllT7heQxjtyevpG9yNxd+ C9F5hWH6oHDbgLflsGC+PC90 og32P6WpOuprMxg1KAJpXBV4xM U8yH0sMSIxARmwt9O5aIA0K0Gw aqWirr5pk1hzXROwILtbQ74n nHXub0H7LLPmdVK8JBQdkYbvEi TrmL01Dhq+DUPkvNhvn8MtEmyz x4oum2qlhIz7ReGtJYEdfrLb ePfuAMV3g4EpOi39P74jQOpcSM PxLEIaWTAzPLKwbRzalg7nsK3u Ii8+NQVizRG3uNL5uZ9vTeZi BuS0ZAwpK536RrJzlWYmLxpxm9 zdv1itkJp6XoCdXWCoxzLbiCcg QWR0g5IlAv24L5HgsSpnm8Iv Pyh0xk11fPVsb4W3gLI4V7QhKX DadzexxDYvaEnoEM2eKCKjjfzo FQDhjF5pRDUuT6b3IdEkHjU6 WKdeR8UbfbB0GVQfjUDaKQFybU ERuP5sbyroq7qzntlfWrKjKKPf CHg0ULp5EDZhdFcyTeOpIPG1 YkR3WGH5mNDydJ4upVqpceomcY 9wOyc+NDg3b9dvaDZxHF8fyJP3 GW63UQ30pONpl5V5wWZ9L8Qa LOGsqmunyimzeFS0ARDnMWHxtO 37Zp1pvDjkWz7vQKOoXTV1ZKHt bMGxA5RiuT8bXhIkDKIaLTCm L9BznKSrZScxX202CZmnAmX7JY HmjdYnV6HmHVLrmJajPjW9c1G0 Gp9TIC20CA19SK47pVIru4P1 eEN4A0AxXIDovzhkekjzwRL2JQ UvTGYkoG68Tr6rlXznXj8oEHYr PQJ0NNFkcXWpU1GawL1zNuEu BAIyLRJmZ2PldKKsJDysX427GY psJrV2KWLntiUlN6BdJTCseNxs IcZ4k9A6Si4OQv65QW26XS55 xFDim9E2qUD8W2TxIOBvdbieqo ohoTR3REExOQTufQ58Np4bnWus Fe3oREFwWKQ7NUZncGVmQ3Vo iO0uCzPqNGCzCXLfA1UoiZIjDH exF069QYgvBxR4KHAiuyHfS0Hi CPGcbMyrYhU8p6X8Bw6IDOje xkw7U5BzDcknxOH+QB21VBXgEN 87jODgnSEnj3cseNn8OyUiOHEa GSK6iKpdENzkq9VuHGFxL83r pDVwn6A3 (more content not included)... Normal [facility] Coding Summary.on 07-27-2022 Coding Summary. CD:[id number] Ww+PGh lYWQ+MQ0ZKDDlN39wkYZfrX9rM 0NMTElOSywgQVBQTElOSyIgbmF yVS6vxRQnKGQc IC8+GV5aPPZbKnwxcAPze0U5yT X1S73prk8wYEhvaIB2MDSmDuMu hxtml6pgrKw6UPbkQswnVqAw UWAhhK63EXS7lW41Us62cDBipK Aja6olpLn8BeNpNRWxJQV5fFjp ZAdho5WnADUnR34ylWIrf8J1 POJjzRbxxWPoNqYacNT4oV7uYM zaglpyu6mvvvjdMrg6os80zHZx y4J3cJR5R3DfxpJ8KCQafLYm IemecSHGfZ5ikctny8tqibeyRc BcNWIvTBw9TVe8SITtbXeyChZp UD12VMF9BMGgqeQqG3JxLUVx xKwwQfY4z5G6Vy9GU5CXIxlwT3 VNTUFSWTwvdGQ+YD09xe08X9Mx WaxiMxv7RVTiTVX7nAF6bG9y PYJaWGjvr5X4gOG7R1NrkiSurc 1au2gpRJPcEZknK04zpSJto0L7 NKUjgDZ4CWDrzZwmXvYykY57 Oyc+PAOslGait8YzCtmga7asc8 igeJc8NgloKAMdpvOhtEjqOTR9 m0KqVt1wBHIbhLJ4pYN6yE9h XbKtGhB0GZuaV507SpRgdZDtKv gtN27mF0NanIZ+WJEcCel0YSCd rYtmIE1dC4LbFULgitgozNBh sEqePH4oUZQbnexfQEUqtB4aGJ UkP8j0GpPvWwF8OEfgJ6DuYYGx eaxlIq58iQ5sThAeRdK6QQwz W9PqyxZ1PDCcgGPfADyvJLB0W5 4jf0B0KFAfOFPpCXX6yOE8nA4s bGlnbjogbGVmdDsgdmVydGlj OFdyMDbrD138DFYchAusMbUrBA luZyBEYXRlOiAgMDQvMTMvMjAy MzwvdGQ+LHMzMUG6kUdnGDFi rEQsSNymDw4vnBjfeUwlNZ2rAX UbfcxqMUGhaT1mLSTafHAwgWmq LU3hCWSlvogtj390SgXkCOB4 LECyjKFkN5HepR4yOcBwQXCvDD OeI6VpuRFeVFpoL905IOmkYbD2 AGFutrFyX2QpFKLseMxsUoO6 e4F5Ha8Us5CuysacC5IivZThEm GmCxyrBQx3Q2RcKfyggOR+PC90 SYOoNW49RFe6TXK4uItaGSfn NJRzM2UiqT8jYcRgXDBbHPBhFs c+PHRhYmxlIHdpZHRoPScxMDAl HlKiuBwnAN0yYo8xKUQdVZPp oUuxvVRyRxJyf8qvYJBfWRsjIS 4nsCwvL0IzlBV1DFIva4y9Lv32 F55rX3JscGV+EMIumMM1fLV1 eY2kBxYjPdY9TQrdU216BsOroW YhJotfs4xzo6wifIr7VqO7XDYm rhFcxWscJME2z1ZsJd77J57g IHdpZHRoPSIxNSUiIHZhbGlnbj 4ixM0vKe8+FWMwgVL0qQN8xK1j GrMnEaB8YGnaV121OfUmwHSn Mgfhs4chq3exxDv9UfHbODVmcu JrhXloLIE4b2KsKf04F4ZnjJlg a9VvSgc5sq55jEPvi0H3oKJ3 B3OcGQGqtjpevQUauNjrAD5bYQ ZwomrhHASnhX0jMALnY3r8PwUb GyN2PPcbW4ZardW3OEEioUSv UGNciTCEoM6gipyrq6uxpqbdZh ZkWIMwSGm7KNt5KLKilIlxSjDs QGK1AgL4IYA0eYZffT6sgZgm wziufP9qIsu+GFF1oJOarPQDAU 1lOjwvdGQ+RHRoBTQ1sEqqOQiu RKQgrU6iZKViW7q6SnBeKoF3 ROzeM2RjgmN3RLTjqFOcYYTosJ JVmQ2ctxltu0fkdeiyLpPgOIPa UAp2BHp4TPWhqUlkTqLgNXJ9 WdP1MQN5cLRudZ1xjHsfykgurU 9wOyc+SxlquLpkEJI1NEu0L1Qb Zaj3UCGaaBfrOI3djHGrCNqn Oi6bsCepqManRV6uWMDjigsko4 86HfWdx0yaORAssQOdEDkpLLN5 H37as5A0WDVvZUGnZDE5jJK5 cQ9hyHlmdavolQIucZwccdTukB zbYQmrBXnzA327RSCnaGubPgBf NPp5W2GsXga5TMWzyEuaBQ1k oWGsWErkWr5nrHvezXcyQM7jBT Lkiyknf127OyNbr5smUDCymWJw FJmcZYB2Z64ub7S4CPUrKIKh ERA2iOA6iJ7yxNposhvziCEhpA nhhnNqjZvaEKbnTMkvJ590NLYb cLscXcIckEd0G6SjJwi2BEIp pLjtCS2duAKxKDxeVo0nrGfxbI cjCA0eBGCexkssn938GoVte8fw BRHavOGfHFddQIU8H02ma6D5 ZQKdUQQqNEA7fJN6fL0kcXhqkz ogbGVmdDsgdmVydGljYWwtYWxp W826AFNzkGqiFbQyjKkfifNz BJyiLTu9V3IdWonojAJ+PC90YW DbJY95mXZsnQSax9yodNj5EtYj IYRsSIA0aLyeJPqtd9LxXHFa O50ltBYss7G8VKYfnXzdqERfEj WnoQU8jM5rZWfurgoea7zmpfha Hxabn9vwul78gD84N17dOYjk VFYbNQFzOGBdJTFbxXkvpp3fcI 9wIi8+DVPrgUE3rAB1aT0bZOVz OdB3PKpbO718JiHaiXAxYldk h4slu9mtdWf7EtA9RNQaivTtuE brRKB7s2XrPn29W59xHBdhVTEw NSYlDFUmRLKvsRblgz5dsU7w Ii8+EJKouPH8dNM7mQ6uNeHdVr O5JCjvP855EaAiuMThLyyiF32o D1PapXP+UVShZkw7GDEfnYvq GR6fhAIkOIdrWv0sUKB7LoAmRz KeJWhzS9RxDNSosiundknpqXT2 HZNkFNKzjB28Kp2lrNixDGGt mPIRyV6ryviiv6sthmmyZrSqWE GcXVg9QLp9PZEgbJrrCaFyMLY1 MnS1EAJ6lZFxbZ1ajOqhvntx iI2lO7IwMOHizgujBg20oG2mIv FxVdW7MAcqXam+U9uZS62LHVNF LZlQNILZBJ91ID08eSCyx4J0 mUQ7W0JrWMPkatrfmuadxYE5LS NaKHUquW31hGPtPOwhZb3ub4H5 b158OIHhKVUckV58Yn8tcYwe JUUruAYRqN8aijurt9qenpxfCv ZuCNIhGQo8PZj0OZIxkStrPgYd XIQ6MuN7NLQ6rBXstV3iuBmm vrfisT7mGio+MDIvMjYvMjAwND wvdGQ+FXUvBDM5bGvkFIgmZUTz iH0lGTXwN7a2YkGyRlR6ZVfy B2JxHPOorlclLq68eQ4aTkOrEy E1ZBabH6FrzrC0YSYeeFOjBPuk AKH3O31hh2Z1OMItKWHnYYU6 oCU4oX0crYbdicglzOLzxZjltr NazJdaYSlcWWlvG979LDCjdMrm GyA6NCqsXHWnYP11PS63fGVo b3E1bBK4B4EySRGimcnvdgmmxZ O0NMEiJZJflH32mUWyFLsxTp8z n3M4i627JPLuHZGvlF06Uk8w aFcpKBEeoUFKrM9hsivde9famg xdHvDhJGBuRNy5UDr9AVPtqZcl OiQcMJA1VqS3YCU5dFMsnR3w xMjyychxtI7gQmu+RmVtYWxlPC 41TC07hGJsb0I1zAE4L8BiSYPj gpkkomzdpXZ1ORIdMRTqcI15 pKIlBGnhEg6fy9Q6v198RYCyGB NduM71Kf3rwEnfIGWyoDUXeX9q shjyr2kzjmkcGxMjYKMfEOd8 CQg5PLVjlDmhUgEdINO8BnC9EV O2qLWrtR9jjOupnakxjG4wAgj+ HCKjDZZyv8Fhc9IcEG65EZ74 G3ThBimjkZLhfSD+PHRhYmxlIH yyFFFnJKbhBQDaHtFemQenFP0z Kg2rQXBrSKFkhLltiZFoKaWs j5fjDIYmZTlgYQ4tzWtnW6IkhB Y3DLAii9g4Kb13H64zX2AxrZW+ MPLfiAX4lYV0gN7eLmGoRgV5 TGieD753VgBuxJQiJjegl7dpx8 qtcCq2EqDpWPLkqtJixRrhTDO7 o6CnQe32H53iVSdzOVUrBSXu ANRgMBZorYdzge8crW3mKr3+PG JgiNF6wJE5wZ4aSuKnAzB5SFmm H226AnHrcXNmFnndO72qV9Af dXA+TYIpPay9VBRimEtcHW3tmL KaNWtfYv6lSHB4YcAxTiWvOOxq C1OgEECqegxslszseVB6VKWw DIKhzV96Nm6hlAopZp9qEMHcVK M1UTAbcKXgH5KhwG3xVjDhHQJx ESOyB6VnhTVpDWbjP150WCoi FaS5ZOXtdmBtP1DmVVZjyHkgPh J2s7U3Sb5XbYhahDSpDM0fMiFg AJn4A0StIss4GYVolGlxJZ2w fNIpRPatNo7hvFsogTvdBC7vJO Dvdnhsr355DvExi9yrLINfwQUa LCtpJII8Z03ci9T8ZOUbVUYu AFT1rUY6vM1vnIecroellXBmnN rawzQjeKqcNJbzULyxD761BMCo aQvmYaMDMbf2S0IsQpn4FYPv sXcmRN5lxQEeWGkmPb0ehQziyE boYB9kFNLlkzccx586XiTdm3rc ZFZwkIYnWNiyCKX0L63bd3O7 NUZlNXZtQZC1aRK4nS5rgXzukd ogbGVmdDsgdmVydGljYWwtYWxp U920KKMtcIqgDa2KJva3M5Vx Atn2CQVltZmmFB7yjVSuPNhpGf 2yuUlfqTedDK6lXZRbnvtia276 NwYyn6enDYJxmMEeYHzyICY2 W21rn9U9FFJxXXFzVHP6mYD3tZ 1hbGlnbjogbGVmdDsgdmVydGlj NMfbFZpeR806ORApzXhuTkBl eWVyOjwvdGQ+DQ09ta59X8AlRg trPiy6TCAdTLV2gXF1cA3fHBHb DJepw3N3pMS8I7QzkrQgau0h x0hhSIAr (more content not included)... Normal [facility] Chlamydia/Gonococcus, NAAon 07-22-2022 C. trachomatis rRNA ANUP+probe Ql (Unsp spec) Negative Invalid Interpretation Code Negative [facility] Comment on above: Performed By: #### 1 [id number] ####[id number] [place] [address] N. gonorrhoeae rRNA ANUP+probe Ql (Unsp spec) Negative Invalid Interpretation Code Negative [facility] Comment on above: Result Comment: Perf ormed at: = [facility] [id number] MD Griffin Loyd Performed By: #### 1 [id number] ####[address] [address] DHEASon 07-21-2022 DHEA-S [Mass/Vol] 246.0 microgram/dL Invalid Interpretation Code 110.0-433. 2 [facility] Comment on above: Result Comment: Perf ormed at: [facility] [id number] PhD Arnie Polanco Performed By: #### 7 [id number], [id number], 31026021, 8522068, 9988027, 3755039, 4887697, [id number], 3144417, 03577801 ####[facility] [address] [place] [address] FSH and LHon 07-21-2022 Follitropin Qn 2.9 m[IU]/mL Invalid Interpretation Code [facility] Comment on above: Result Comment: Adul t Female: Follicular phase 3.5 - 12.5 Ovulation phase 4.7 - 21.5 Luteal phase 1.7 - 7.7 Postmenopausal 25.8 - 134.8 Performed at: [address] [id number] PhD Arnie Polanco Performed By: #### 7 [id number], 13999393, 20802594, 2118165, 6125123, 3458435, 6477469, 270187980, 2808436, 38762130 ####[facility] [address] [place] [address] Lutropin Qn 9.8 m[IU]/mL Invalid Interpretation Code [facility] Comment on above: Result Comment: Adul t Female: Follicular phase 2.4 - 12.6 Ovulation phase 14.0 - 95.6 Luteal phase 1.0 - 11.4 Postmenopausal 7.7 - 58.5 Performed By: #### 7 [id number], 83009179, 03592562, 4277894, 8975950, 7950083, 9684837, 102755022, 0947339, 57695570 ####[facility] [address] [place] [address] Insulin Lvlon 07-21-2022 Insulin Qn 21.1 u[IU]/mL Invalid Interpretation Code 2.6-24.9 [facility] Comment on above: Result Comment: Perf ormed at: [address] [id number] PhD Arnie Polanco Performed By: #### 7 [id number], 17019495, 16892244, 6758788, 4460474, 4845610, 4372605, 831084372, 3069234, 01170823 ####[facility] [address] [place] [address] Testost Totalon 07-21-2022 Testosterone [Mass/Vol] 22 ng/dL Invalid Interpretation Code [facility] Comment on above: Result Comment: Perf ormed at: [address] [id number] PhD Arnie Polanco Performed By: #### 7 [id number], 19211649, 43934238, 0577373, 5652534, 3444201, 0000828, 768570156, 7641059, 03066628 ####[facility] [address] [place] [address] CHEMISTRYOrdered By: SYSTEM SYSTEM on 07-20-2022 25-hydroxyvitamin [...] 07-20-2022 Glucose [Mass/Vol] 92 mg/dL Normal 55-99 [facility] Comment on above: Performed By: #### 7 [id number], 86793312, 17698792, 7533464, 8026023, 4070959, 9849142, 396637063, 8556882, 18312334 ####[facility] [address] [place] [address] KclF1ddw 07-20-2022 HbA1c (Bld) [Mass fraction] 4.3 % Normal <=5.9 [facility] Comment on above: Performed By: #### 7 [id number], 38833756, 05935542, 1209177, 2232832, 7109075, 0375485, 404806975, 4891000, 96485527 ####[facility] [address] [place] [address] Lipid Panelon 07-20-2022 Cholesterol [Mass/Vol] 140 mg/dL Normal 120-200 [facility] Comment on above: Performed By: #### 7 [id number], 87189022, 17704296, 7543890, 9877964, 4364243, 4075286, 334141603, 4222704, 51448414 ####[facility] [address] [place] [address] Cholesterol in HDL [Mass/Vol] 56 mg/dL Invalid Interpretation Code [facility] Comment on above: Result Comment: HDL > or equal to 60 mg/dL: Low cardiovascular risk HDL < 40 mg/dL : High cardiovascular risk Performed By: #### 7 [id number], 10924443, 91762287, 1429113, 3448903, 8788915, 2389952, 498990715, 5565967, 05146568 ####[facility] [address] [place] [address] Cholesterol in LDL [Mass/Vol] 82 mg/dL Normal <=129 [facility] Comment on above: Performed By: #### 7 [id number], 97780292, 20179033, 4684114, 4732519, 4868554, 7418966, 599602020, 3552663, 93523973 ####[facility] [address] [place] [place] [address] Cholesterol in VLDL [Mass/Vol] 16 mg/dL Normal 7-40 [facility] Comment on above: Performed By: #### 7 83735493, 23585911, 39125632, 3600165, 5159395, 5367608, 5577356, 533109880, 9235997, 28397768 ####[facility] [address] [place] [address] Triglyceride [Mass/Vol] 80 mg/dL Normal <=149 [facility] Comment on above: Performed By: #### 7 56131140, 44253112, 77294602, 2558458, 5041121, 4729356, 6341852, 790930831, 1912064, 17805283 ####[facility] [address] [place] [address] Physician Orderon 07-20-2022 Physician Order [id number]:127 Normal [facility] Prolactinon 07-20-2022 Prolactin [Mass/Vol] 7.40 ng/mL Normal 3.34-26.72 [facility] Comment on above: Performed By: #### 7 [id number], 56303465, 89768931, 6298148, 8589420, 3064238, 2636352, 212921410, 3790258, 73076249 ####[facility] [address] [place] [address] TSHon 07-20-2022 TSH Qn 1.22 m[IU]/L Normal 0.34-5.60 [facility] Comment on above: Performed By: #### 7 [id number], 95069598, 46502773, 3089824, 2818644, 8958203, 6150254, 289970967, 7632955, 74148953 ####[facility] [address] [place] [address] Vitamin D 25 Hydroxyon 07-20 25-hydroxyvitamin D3 [Mass/Vol] 23.8 ng/mL Low 30.0-100.0 [facility] Comment on above: Result Comment: Vit culp D deficiency has been defined as a level of serum 25-OH vitamin D less than 20 ng/mL (1,2) by the [place] [employer] and an Endocrine Society practice guideline. The Endocrine Society further defined vitamin D insufficiency as a level between 21 and 29 ng/mL (2). 1. IOM ([place] [employer]). 2010. Dietary reference intakes for calcium and D. [place]: The National Academies Press. 2. Cem MF, [place]adine [place], Trudi PRICE, et al. Evaluation, treatment, and prevention of vitamin D deficiency: an Endocrine Society clinical practice guideline. JCEM. 2010; 96 (7):1911-30. Performed By: #### 7 19842561, 30030371, 24892586, 1597110, 8953535, 7824768, 4175214, 119229824, 3134427, 98200471 ####[facility] [address] [place] [address] Physician Orderon 07-19-2022 Physician Order [id number]#[id number]:127 Normal [facility] Physician Order [id number]#[id number]:127 Normal [facility] Cholesterol [Mass/volume] in Serum or PlasmaOrdered By: Dean Solis on 07-10-2022 Cholesterol [Mass/Vol] 134 mg/dL 140-200 [facility] Comment on above: Chol less than 200 m g/dl low riskChol 201-239 mg/dl borderline riskChol 240 mg/dl and greater high risk Cholesterol in LDL Calc [Mas s/Vol]Ordered By: Dean Solis on 07-10-2022 Cholesterol in LDL [Mass/Vol] 69 mg/dL 0-100 [facility] Comment on above: LDL ATP III CLASSIFI CATIONLDL less than 100 mg/dL OptimalLDL 100-129 mg/dL Near or above optimalLDL 130-159 mg/dL Borderline highLDL 160-189 mg/dL HighLDL greater than 189 mg/dL Very high Cholesterol in VLDL Calc [Ma ss/Vol]Ordered By: Dean Solis on 07-10-2022 Cholesterol in VLDL [Mass/Vol] 12 mg/dL [facility] Serum or plasma high density lipoprotein (HDL) cholesterol measurementOrdered By: Dean Solis on 07-10-2022 Cholesterol in HDL [Mass/Vol] 53 mg/dL 35-85 [facility] Comment on above: HDL CHOL ATP-III CLA SSIFICATION Cardiovascular RiskHDL > or equal to 60 mg/dL LOWHDL < 40 mg/dL HIGH Serum or plasma total choles terol/high density lipoprotein (HDL) cholesterol mass ratOrdered By: Dean Solis on 07-10-2022 Cholesterol.total/Chol esterol in HDL [Mass ratio] 2.5 {ratio} <5.0 [facility] Thyrotropin [Units/volume] i n Serum or PlasmaOrdered By: Dean Solis on 07-10-2022 TSH Qn 3.34 m[IU]/L 0.45-5.33 [facility] Triglyceride [Mass/volume] i n Serum or PlasmaOrdered By: Dean Solis on 07-10-2022 Triglyceride [Mass/Vol] 62 mg/dL 0-149 [facility] Comment on above: TRIG ATP III CLASSIF ICATIONTRIG less than 150 mg/dL NormalTRIG 150-199 mg/dL Borderline highTRIG 200-500 mg/dL High TRIG greater than 500 mg/dL Very highStandard traceable to the Center for Disease Conrtrol and Prevention (CDC) test method. Vitamin D+Metabolites [Mass/ volume] in Serum or PlasmaOrdered By: Dean Solis on 07-10-2022 Vitamin D+Metabolites [Mass/Vol] 12.0 ng/mL 30-100 [facility] Comment on above: VITAMIN D STATUS 25( [place])VITAMIN D RANGE (ng/mL) Deficient <20 Insufficient 20 to <30Sufficient 30 to 100Reference: Cem MF,[place]ad[place], Trudi PRICE, et al. Evaluation,treatment, and prevention of vitamin D deficiency; an Endocrine Society clinical practice guideline. JCEM. 2010; 96(7):1911-30. ACETAMINOPHENon 07-09-2022 Acetaminophen [Mass/Vol] ug/mL Critically low 10.0-30.0 [facility] Comment on above: Performed By: #### C MP, SALSANDRA, ACET #### [facility] [address] [address] [address] Skylar Ramirez CBC AUTO DIFFon 07-09-2022 BASO # 0.1 103/ul Normal 0.0-0.1 [facility] Comment on above: Performed By: #### C BC #### [facility] [address] [place] [address] Dr. Skylar Ramirez Basophils/100 WBC (Bld) 0.6 % Normal 0.2-2.0 [facility] Comment on above: Performed By: #### C BC #### [facility] [address] [place] [address] Dr. Skylar Ramirez EO # 0.1 103/ul Normal 0.0-0.7 [facility] Comment on above: Performed By: #### C BC #### [facility] [address] [place] [address] Dr. Skylar Ramirez Eosinophils/100 WBC (Bld) 1.0 % Normal 0.9-7.0 [facility] Comment on above: Performed By: #### C BC #### [facility] [address] [place] [address] Dr. Skylar Ramirez Erythrocyte distribution width (RBC) [Ratio] 12.6 % Normal 11.0-15.0 [facility] Comment on above: Performed By: #### C BC #### [facility] [address] [place] [address] Dr. Skylar Ramirez Hematocrit (Bld) [Volume fraction] 39.7 % Normal 36.0-48.0 [facility] Comment on above: Performed By: #### C BC #### [facility] [address] [place] [place] [address] Dr. Skylar Ramirez Hemoglobin (Bld) [Mass/Vol] 14.4 g/dL Normal 12.0-16.0 [facility] Comment on above: Performed By: #### C BC #### [facility] [address] [place] [address] Dr. Skylar Ramirez IG # 0.03 10e3/ul Normal 0.00-0.03 [facility] Comment on above: Performed By: #### C BC #### [facility] [address] [place] [address] Dr. Skylar Ramirez IG % 0.4 % Normal 0.0-0.5 [facility] Comment on above: Performed By: #### C BC #### [facility] [address] [place] [address] Dr. Skylar Ramirez LYMPH # 2.2 103/ul Normal 1.2-3.8 [facility] Comment on above: Performed By: #### C BC #### [facility] [address] [place] [address] Dr. Skylar Ramirez Lymphocytes/100 WBC (Bld) 27.4 % Normal 20.5-60.0 [facility] Comment on above: Performed By: #### C BC #### [facility] [address] [place] [address] Dr. Skylar Ramirez MANUAL DIFF REQ NO Normal [facility] Comment on above: Performed By: #### C BC #### [facility] [address] [place] [address] Dr. Skylar Ramirez MCH (RBC) [Entitic mass] 33.6 pg Normal 26.7-34.0 [facility] Comment on above: Performed By: #### C BC #### [facility] [address] [place] [address] Dr. Skylar Ramirez MCHC (RBC) [Mass/Vol] 36.3 g/dL Critically high 29.9-35.2 [facility] Comment on above: Performed By: #### C BC #### [facility] [address] [place] [address] Dr. Skylar Ramirez MCV (RBC) [Entitic vol] 92.5 fL Normal 81.0-99.0 [facility] Comment on above: Performed By: #### C BC #### [facility] [address] [place] [address] Dr. Skylar Ramirez MONO # 0.4 103/ul Normal 0.3-0.8 [facility] Comment on above: Performed By: #### C BC #### [facility] [address] [place] [address] Dr. Skylar Ramirez Monocytes/100 WBC (Bld) 5.5 % Normal 1.7-12.0 [facility] Comment on above: Performed By: #### C BC #### [facility] [address] [place] [address] Dr. Skylar Ramirez NEUT # 5.3 103/ul Normal 1.4-6.5 [facility] Comment on above: Performed By: #### C BC #### [facility] [address] [place] [address] Dr. Skylar Ramirez Neutrophils/100 WBC (Bld) 65.1 % Normal 43.0-75.0 [facility] Comment on above: Performed By: #### C BC #### [facility] [address] [place] [address] Dr. Skylar Ramirez Platelet mean volume (Bld) [Entitic vol] 9.8 fL Normal 9.5-13.5 [facility] Comment on above: Performed By: #### C BC #### [facility] [address] [place] [address] Dr. Skylar Ramirez PLT 316 103/ul Normal 150-450 [facility] Comment on above: Performed By: #### C BC #### [facility] [address] [place] [address] Dr. Skylar Ramirez RBC 4.29 106/ul Normal 4.20-5.40 [facility] Comment on above: Performed By: #### C BC #### [facility] [address] [place] [address] Dr. Skylar Ramirez WBC 8.1 103/ul Normal 4.0-11.0 [facility] Comment on above: Performed By: #### C BC #### [facility] [address] [place] [address] Dr. Skylar Ramirez DRUG SCREEN RAPID (URINE)on 07-09-2022 AMP Negative Normal NEGATIVE [facility] Comment on above: Performed By: #### E TH #### [facility] [address] [place] [address] Dr. Skylar Ramirez BAR Negative Normal NEGATIVE [facility] Comment on above: Performed By: #### E TH #### [facility] [address] [place] [address] Dr. Skylar Ramirez BUP Negative Normal NEGATIVE [facility] Comment on above: Performed By: #### E TH #### [facility] [address] [place] [address] Dr. Skylar Ramirez BZO Negative Normal NEGATIVE [facility] Comment on above: Performed By: #### E TH #### [facility] [address] [place] [address] Dr. Skylar Ramirez RICHIE Negative Normal NEGATIVE [facility] Comment on above: Performed By: #### E TH #### [facility] [address] [place] [address] Dr. Skylar Ramirez CUT-OFFS SEE BELOW Normal [facility] Comment on above: Result Comment: AMP [...] ng/mL Performed By: #### E TH #### [facility] [address] [place] [address] Dr. Skylar Ramirez DRUG CUT HEADER DRUG CLASS TEST SYST EM CUT-OFF CONCENTRATIONS ARE FOLLOWS: Normal [facility] Comment on above: Performed By: #### E TH #### [facility] [address] [place] [address] Dr. Skylar Ramirez mAMP Negative Normal NEGATIVE [facility] Comment on above: Performed By: #### E TH #### [facility] [address] [place] [address] Dr. Skylar Ramirez MTD Negative Normal NEGATIVE [facility] Comment on above: Performed By: #### E TH #### [facility] [address] [place], [place] [id number] Dr. Skylar Ramirez OPI Negative Normal NEGATIVE [facility] Comment on above: Performed By: #### E TH #### [facility] [address] [place] [address] Dr. Skylar Ramirez OXY Negative Normal NEGATIVE [facility] Comment on above: Performed By: #### E TH #### [facility] [address] [place] [address] Dr. Skylar Ramirez PCP Negative Normal NEGATIVE [facility] Comment on above: Performed By: #### E TH #### [facility] [address] [place] [address] Dr. Skylar Ramirez PPX Negative Normal NEGATIVE [facility] Comment on above: Performed By: #### E TH #### [facility] [address] [place] [address] Dr. Skylar Ramirez TCA Negative Normal NEGATIVE [facility] Comment on above: Performed By: #### E TH #### [facility] [address] [place] [address] Dr. Skylar Ramirez THC Positive Abnormal NEGATIVE [facility] Comment on above: Performed By: #### E TH #### [facility] [address] [place] [address] Dr. Skylar Ramirez ER URINE PROFILEon 3 Bilirubin Ql (U) Negative Normal NEGATIVE [facility] Comment on above: Performed By: #### D MARIBETH, ERUR #### [facility] [address] [place] [address] Dr. Skylar Ramirez Clarity (U) CLEAR Normal CLEAR [facility] Comment on above: Performed By: #### D MARIBETH, ERUR #### [facility] [address] [place] [address] Dr. Skylar Ramirez Color (U) LT. YELLOW Normal YELLOW [facility] Comment on above: Performed By: #### D MARIBETH, ERUR #### [facility] [address] [place] [address] Dr. Skylar Ramirez ERUAHD A micrscopic examina tion will be performed if indicated. Normal [facility] Comment on above: Performed By: #### D MARIBETH, ERUR #### [facility] [address] [place] [address] Dr. Skylar Ramirez Glucose Ql (U) Negative Normal NEGATIVE [facility] Comment on above: Performed By: #### D MARIBETH, ERUR #### [facility] [address] [place] [address] Dr. Skylar Ramirez Hemoglobin Ql (U) Negative Normal NEGATIVE [facility] Comment on above: Performed By: #### D MARIBETH, ERUR #### [facility] [address] [place] [address] Dr. Skylar Ramirez Ketones Ql (U) Negative Normal NEGATIVE [facility] Comment on above: Performed By: #### D MARIBETH, ERUR #### [facility] [address] [place] [address] Dr. Skylar Ramirez LEUKOCYTES Negative Normal NEGATIVE [facility] Comment on above: Performed By: #### Jessica STAHL, ERUR #### [facility] [address] [place] [address] Dr. Skylar Ramirez Nitrite Ql (U) Negative Normal NEGATIVE [facility] Comment on above: Performed By: #### Jessica TSAHL, ERUR #### [facility] [address] [place] [address] Dr. Skylar Ramirez pH (U) 6.0 [pH] Normal 5-9 [facility] Comment on above: Performed By: #### Jessica STAHL, ERUR #### [facility] [address] [place] [address] Dr. Skylar Ramirez SPEC GRAVITY <=1.005 Abnormal 1.005-<=1. 025 [facility] Comment on above: Performed By: #### Jessica STAHL, ERUR #### [facility] [address] [place] [address] Dr. Skylar Ramirez UA PROTEIN Negative Normal NEGATIVE/ TRACE [facility] Comment on above: Performed By: #### Jesisca STAHL, ERUR #### [facility] [address] [place] [address] Dr. Skylar Ramirez UR MICRO IND NOT INDICATED Normal [facility] Comment on above: Performed By: #### D MARIBETH, ERUR #### [facility] [address] [place] [address] Dr. Skylar Ramirez Urobilinogen Qn (U) 0.2 {Evens'U}/dL Normal 0.2 - 1. 0 [facility] Comment on above: Performed By: #### D MARIBETH, ERUR #### [facility] [address] [place] [address] Dr. Skylar Ramirez ETHANOL (BLD ALC)on 07-10-19 23 ALC NOTE NOTE: 80 mg/dl is th e legal limit for a blood alcohol level Normal [facility] Comment on above: Performed By: #### E TH #### [facility] [address] [place] [address] Dr. Skylar Ramirez Ethanol [Mass/Vol] 90 mg/dL Normal [facility] Comment on above: Performed By: #### E TH #### [facility] [address] [place] [address] Dr. Skylar Ramirez ALC NOTE NOTE: 80 mg/dl is th e legal limit for a blood alcohol level Normal [facility] Comment on above: Performed By: #### E TH #### [facility] [address] [place] [address] Dr. Skylar Ramirez Ethanol [Mass/Vol] 116 mg/dL Normal [facility] Comment on above: Performed By: #### E TH #### [facility] [address] [place] [address] Dr. Skylar Ramirez PREG HCG QUALon 07-09-2022 , QUAL Negative Normal NEGATIVE [facility] Comment on above: Performed By: #### P REG #### [facility] [address] [place] [address] Dr. Skylar Ramirez PROF 14(COMP METB)on 023 Albumin [Mass/Vol] 4.4 g/dL Normal 3.4-5.0 [facility] Comment on above: Performed By: #### C MP, SALYC, ACET #### [facility] [address] [address] [address] Skylar Ramirez Albumin/Globulin [Mass ratio] 1.5 {ratio} Normal [facility] Comment on above: Performed By: #### C SERINA GUPTA, ACET #### [facility] [address] [address] [address] Skylar Ramirez ALP [Catalytic activity/Vol] 65 U/L Normal 46-116 [facility] Comment on above: Performed By: #### C ENZO GUPTAYC, ACET #### [facility] [address] [address] [address] Skylar Ramirez ALT [Catalytic activity/Vol] 16 U/L Normal 14-59 [facility] Comment on above: Performed By: #### C ENZO GUPTAYC, ACET #### [facility] [address] [place] [address] Dr. Skylar Ramirez Anion gap [Moles/Vol] 14.2 mmol/L Normal [facility] Comment on above: Performed By: #### C CANDY SALYC, ACET #### [facility] [address] [address] [address] Skylar Ramirez AST [Catalytic activity/Vol] 14 U/L Critically low 15-37 [facility] Comment on above: Performed By: #### C CANDY SALYC, ACET #### [facility] [address] [address] [address] Skylar Ramirez Bilirubin [Mass/Vol] 0.6 mg/dL Normal 0.2-1.0 [facility] Comment on above: Performed By: #### C CANDY, SALYC, ACET #### [facility] [address] [address] [address] Skylar Ramirez Calcium [Mass/Vol] 9.1 mg/dL Normal 8.5-10.1 [facility] Comment on above: Performed By: #### C CANDY, SALYC, ACET #### [facility] [address] [address] [address] Skylar Ramirez Chloride [Moles/Vol] 106 mmol/L Normal 98-107 [facility] Comment on above: Performed By: #### C MP, SALYC, ACET #### [facility] [address] [address] [address] Skylar Ramirez CO2 [Moles/Vol] 26.0 mmol/L Normal 21.0-32.0 [facility] Comment on above: Performed By: #### C MP, SALYC, ACET #### [facility] [address] [address] [address] Skylar Ramirez Creatinine [Mass/Vol] 0.78 mg/dL Normal 0.55-1.02 [facility] Comment on above: Performed By: #### C MP, SALYC, ACET #### [facility] [address] [address] [address] Skylar Ramirez EGFR-AF BULGARIAN >60 Normal >=60 [facility] Comment on above: Performed By: #### C MP, SALYC, ACET #### [facility] [address] [address] [address] Skylar Ramirez EGFR-NON AF BULGARIAN >60 Normal >=60 [facility] Comment on above: Performed By: #### C MP, SALYC, ACET #### [facility] [address] [address] [address] Skylar Ramirez Globulin (S) [Mass/Vol] 3.0 g/dL Normal [facility] Comment on above: Performed By: #### C MP, SALYC, ACET #### [facility] [address] [address] [address] Skylar Ramirez Glucose [Mass/Vol] 129 mg/dL Critically high 74-106 [facility] Comment on above: Performed By: #### C MP, SALYC, ACET #### [facility] [address] [address] [address] Skylar Ramirez Potassium [Moles/Vol] 3.2 mmol/L Critically low 3.5-5.1 [facility] Comment on above: Performed By: #### C MP, SALYC, ACET #### [facility] [address] [address] [address] Skylar Ramirez Protein [Mass/Vol] 7.4 g/dL Normal 6.4-8.2 [facility] Comment on above: Performed By: #### C SERINA GUPTA, ACET #### [facility] [address] [address] [address] Skylar Ramirez Sodium [Moles/Vol] 143 mmol/L Normal 136-145 [facility] Comment on above: Performed By: #### C SERINA GUPTA, ACET #### [facility] [address] [place] [address] Dr. Skylar Ramirez Urea nitrogen [Mass/Vol] 6.0 mg/dL Critically low 6.4-19.3 [facility] Comment on above: Performed By: #### C SERINA GUPTA, ACET #### [facility] [address] [place] [address] Dr. Skylar Ramirez Urea nitrogen/Creatinine [Mass ratio] 7.7 mg/mg Normal [facility] Comment on above: Performed By: #### C SERINA GUPTA, ACET #### [facility] [address] [place] [address] Dr. Skylar Ramirez SALICYLATEon 07-09-2022 SALICYLATE <2.8 Normal <=19.9 [facility] Comment on above: Performed By: #### C SERINA GUPTA, ACET #### [facility] [address] [place] [address] Dr. Skylar Ramirez XR HAND RT MIN 3Von 07-10-19 23 XR HAND RT MIN 3V PLAIN FILM OF THE PRICE [place] RIGHT HISTORY: Pain. Fourth and fifth digit [...] JJ SILVA Date: 2022-07-09 18:12 Normal [facility] MICRO OTHER TESTSOrdered By: Jose Clay on [...] spec) Detected Critically abnormal NOT DETECTED [facility] Comment on above: Result Comment: This test is not yet approved or cleared by the [place] FDA. When there are no FDA-approved or cleared tests available, and other criteria are met, FDA can make tests available under an emergency access mechanism called an Emergency Use Authorization (EUA). The EUA for this test is supported by the [place] [employer] of Health and Human Service's (HHS's) declaration [...] used). Performed By: #### E TH #### [facility] [address] [place] [address] Dr. Skylar Ramirez Covid-19 PCR (CVDTBH)on SARS-CoV-2 (COVID-19) RNA ANUP+probe Ql (Unsp spec) Not detected Normal NOT DETECTED [facility] Comment on above: Result Comment: This test is not yet approved or cleared by the [place] FDA. When there are no FDA-approved or cleared tests available, and other criteria are met, FDA can make tests available under an emergency access mechanism called an Emergency Use Authorization (EUA). The EUA for this test is supported by the [place] of Health and Human Service's (HHS's) declaration [...] SARS-CoV-2. Performed By: #### C VDTB #### [facility] [address] [place] [address] Dr. Skylar Ramirez CBC AUTO DIFFon 08-17-2021 BASO # 0.1 103/ul Normal 0.0-0.1 [facility] Comment on above: Performed By: #### E TH #### [facility] [address] [place] [address] Dr. Skylar Ramirez Basophils/100 WBC (Bld) 0.6 % Normal 0.2-2.0 [facility] Comment on above: Performed By: #### E TH #### [facility] [address] [place] [address] Dr. Skylar Ramirez EO # 0.2 103/ul Normal 0.0-0.7 [facility] Comment on above: Performed By: #### E TH #### [facility] [address] [place] [address] Dr. Skylar Ramirez Eosinophils/100 WBC (Bld) 2.0 % Normal 0.9-7.0 [facility] Comment on above: Performed By: #### E TH #### [facility] [address] [place] [address] Dr. Skylar Ramirez Erythrocyte distribution width (RBC) [Ratio] 13.2 % Normal 11.0-15.0 [facility] Comment on above: Performed By: #### E TH #### [facility] [address] [place] [address] Dr. Skylar Ramirez Hematocrit (Bld) [Volume fraction] 38.4 % Normal 36.0-48.0 [facility] Comment on above: Performed By: #### E #### [facility] [address] [place] [address] Dr. Skylar Ramirez Hemoglobin (Bld) [Mass/Vol] 13.1 g/dL Normal 12.0-16.0 [facility] Comment on above: Performed By: #### E TH #### [facility] [address] [place] [address] Dr. Skylar Ramirez IG # 0.02 10e3/ul Normal 0.00-0.03 [facility] Comment on above: Performed By: #### E #### [facility] [address] [place] [address] Dr. Skylar Ramirez IG % 0.2 % Normal 0.0-0.5 [facility] Comment on above: Performed By: #### E #### [facility] [address] [place] [address] Dr. Skylar Ramirez LYMPH # 3.0 103/ul Normal 1.2-3.8 [facility] Comment on above: Performed By: #### E #### [facility] [address] [place] [address] Dr. Skylar Ramirez Lymphocytes/100 WBC (Bld) 31.8 % Normal 20.5-60.0 [facility] Comment on above: Performed By: #### E #### [facility] [address] [place] [address] Dr. Skylar Ramirez MANUAL DIFF REQ NO Normal [facility] Comment on above: Performed By: #### E TH #### [facility] [address] [place] [address] Dr. Skylar Ramirez MCH (RBC) [Entitic mass] 32.0 pg Normal 26.7-34.0 [facility] Comment on above: Performed By: #### E TH #### [facility] [address] [place] [address] Dr. Skylar Ramirez MCHC (RBC) [Mass/Vol] 34.1 g/dL Normal 29.9-35.2 [facility] Comment on above: Performed By: #### E TH #### [facility] [address] [place] [address] Dr. Skylar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
== END 2023-08-09 12:37 | disposition left against medical advice (07) ==
LOC: ER 12:53
PROVIDERS: Emergency Provider Emergency Medicine
DX: Z53.21 Procedure and treatment not carried out due to patient leaving prior to being seen by health care provider (principal)

== ENCOUNTER 2024-01-12 04:18 | Emergency (ER) | payer OTHER, SELFPAY ==
[2024-01-12 04:22] VITALS: BP 114/62; PULSE 80; TEMP 37; O2SAT 98
--- NOTE | 2024-01-12 04:38 | ED.NAVMDI1 ---
HPI - Nausea/Vomiting/Diarrhea General Chief complaint: Nausea/Vomiting/Diarrhea Stated complaint: vomiting Time Seen by Provider: 01/12/24 04:36 Source: patient Mode of arrival: walk-in Limitations: no limitations History of Present Illness HPI Narrative: patient states she has been ill since yesterday with abdominal pain and recurrent vomiting. Believes she has vomited about 5 times. No diarrhea. No fever. No hematemesis. Not aware of anyone else who is ill. Related Data Home Medications ?Medication ?Instructions ?Recorded ?Confirmed escitalopram oxalate 10 mg tablet 20 mg PO DAILY 01/18/23 01/12/24 trazodone 50 mg tablet 50 mg PO BEDTIME 06/17/23 01/12/24 docusate sodium 100 mg capsule 100 mg PO DAILY 08/09/23 08/09/23 methocarbamol 750 mg tablet 750 mg PO BID 08/09/23 08/09/23 oxycodone 5 mg tablet 5 mg PO Q6H PRN pain 08/09/23 08/09/23 polyethylene glycol 3350 17 gram 17 g PO DAILY 08/09/23 08/09/23 oral powder packet Allergies Allergy/AdvReac Type Severity Reaction Status Date / Time No Known Drug Allergies Allergy Verified 01/12/24 04:28 Review of Systems ROS Status of ROS 10 or more systems reviewed and unremarkable except as noted in history and below [facility] Medical History (Updated 01/12/24 @ 06:12 by Amadeo Graham MD) Colon perforation ?K63.1 - Perforation of intestine (nontraumatic) (ICD-10) Social History Smoking status: Current every day smoker Little interest or pleasure in doing things: not at all Feeling down, depressed, or hopeless: not at all Exam Constitutional Vital Signs, click to edit/add: Last Vital Signs Temp 98.6 F 01/12/24 04:22 Pulse 80 01/12/24 04:22 Resp 16 01/12/24 04:22 BP 114/62 01/12/24 04:22 Pulse Ox 98 01/12/24 04:22 O2 Del Method Room Air 01/12/24 04:22 Common normals: no apparent distress, average body habitus, oriented x3, no limitations, healthy appearing, alert and well nourished [facility] Common normals: normocephalic and head/scalp atraumatic Eye Common normals: PERRL and EOMs intact bilaterally Respiratory Common normals: normal respiratory effort, no retractions, no use of accessory muscles and clear to auscultation bilaterally Cardio Common normals: regular rate, regular rhythm, S1 normal heart sound and S2 normal heart sound GI Common normals: Normal to inspection, nondistended, normoactive bowel sounds present, soft to palpation and non-tender Extremity Common normals: normal to inspection and full ROM Neuro Common normals: oriented x3, CN's II-XII intact bilaterally, moves all extremities, no focal motor deficits and no sensory deficits noted Psych Appearance: grossly normal Course Vital Signs Vital signs: Vital Signs Temperature 98.6 F 01/12/24 04:22 Pulse Rate 80 01/12/24 04:22 Respiratory Rate 16 01/12/24 04:22 Blood Pressure 114/62 01/12/24 04:22 Pulse Oximetry 98 01/12/24 04:22 Oxygen Delivery Method Room Air 01/12/24 04:22 Temperature 98.6 F 01/12/24 04:22 Pulse Rate 80 01/12/24 04:22 Respiratory Rate 16 01/12/24 04:22 Blood Pressure 114/62 01/12/24 04:22 Pulse Oximetry 98 01/12/24 04:22 Oxygen Delivery Method Room Air 01/12/24 04:22 MDM - Nausea/Vomiting/Diarrhea MDM Narrative Medical decision making narrative: patient presents complaining of recurrent vomiting. abdomen is nontender and soft. labs remarkable for . She is feeling better after IV hydration and phenergan. discharged home to follow up with her doctor Lab Data Labs: Lab Results 01/12/24 01/12/24 Range/Units 04:30 05:48 WBC 8.2 (4.0-11.0) 10^3/uL RBC 3.54 L (4.20-5.40) 10^6/uL Hgb 11.5 L (12.0-16.0) g/dL Hct 31.5 L (36.0-48.0) % MCV 89.0 (81.0-99.0) fL MCH 32.5 (26.7-34.0) pg MCHC 36.5 H (29.9-35.2) g/dL RDW 12.9 (11.0-15.0) % Plt Count 240 (150-450) 10^3/uL MPV 11.9 (9.5-13.5) fL Neut % (Auto) 51.8 (43.0-75.0) % Lymph % (Auto) 36.0 (20.5-60.0) % [place] % (Auto) 7.8 (1.7-12.0) % Eos % (Auto) 3.3 (0.9-7.0) % Baso % (Auto) 0.9 (0.2-2.0) % Neut # (Auto) 4.3 (1.4-6.5) 10^3/uL Lymph # (Auto) 3.0 (1.2-3.8) 10^3/uL [place] # (Auto) 0.6 (0.3-0.8) 10^3/uL Eos # (Auto) 0.3 (0.0-0.7) 10^3/uL Baso # (Auto) 0.1 (0.0-0.1) 10^3/uL Abs Immat Gran (auto) 0.02 (0.00-0.03) 10^3/uL Imm/Tot Granulo (auto) 0.2 (0.0-0.5) % Sodium 137 (136-145) mmol/L Potassium 3.2 L (3.5-5.1) mmol/L Chloride 103 (98-107) mmol/L Carbon Dioxide 24.7 (21.0-32.0) mmol/L Anion Gap 12.5 BUN 5.0 L (7.0-18.0) mg/dL Creatinine 0.60 (0.55-1.02) mg/dL Est GFR ( Amer) >60 (>=60) Est GFR (Non-Af Amer) >60 (>=60) BUN/Creatinine Ratio 8.3 Glucose 96 (74-106) mg/dL Lactate 0.9 (0.4-2.0) mmol/L Calcium 8.6 (8.5-10.1) mg/dL Total Bilirubin 0.5 (0.2-1.0) mg/dL AST 8 L (15-37) U/L ALT 8 L (14-59) U/L Alkaline Phosphatase 47 (46-116) U/L Total Protein 6.1 L (6.4-8.2) g/dL Albumin 3.5 (3.4-5.0) g/dL Globulin 2.6 g/dL Albumin/Globulin Ratio 1.3 Lipase 40.0 (16.0-77.0) U/L Serum HCG, Qual Positive A (NEGATIVE) Urine Color Lt. yellow (YELLOW) Urine Clarity Clear (CLEAR) Urine pH 6.0 (5.0-9.0) Ur Specific [place] 1.010 (1.005-1.025) Urine Protein Negative (NEG/TRACE) mg/dL Urine Glucose (UA) Negative (NEGATIVE) mg/dL Urine Ketones Negative (NEGATIVE) mg/dL Urine Occult Blood Negative (NEGATIVE) Urine Nitrite Negative (NEGATIVE) Urine Bilirubin Negative (NEGATIVE) Urine Urobilinogen 0.2 (0.2-1.0) EU/dL Ur Leukocyte Esterase Negative (NEGATIVE) Discharge Plan Discharge Chief Complaint: Nausea/Vomiting/Diarrhea Clinical Impression: Nausea and vomiting, Patient Disposition: Home, Self-Care Prescriptions / Home Meds: No Action escitalopram oxalate 10 mg tablet 20 mg PO DAILY trazodone 50 mg tablet 50 mg PO BEDTIME docusate sodium 100 mg capsule 100 mg PO DAILY methocarbamol 750 mg tablet 750 mg PO BID oxycodone 5 mg tablet 5 mg PO Q6H PRN (Reason: pain) polyethylene glycol 3350 17 gram powder in packet 17 g PO DAILY Print Language: Romanian Instructions: (ED), Acute Nausea and Vomiting (ED) Referrals: Physician,Non-Staff, MD [Primary Care Provider] - 1 week Discharge Date/Time: 01/12/24 06:24
[2024-01-12 05:08] LABS: Basophils Absolute Auto 0.1 10^3/uL (0.0-0.1); Basophils Percent Auto 0.9 % (0.2-2.0); Eosinophils Absolute Auto 0.3 10^3/uL (0.0-0.7); Eosinophils Percent Auto 3.3 % (0.9-7.0); Hematocrit 31.5 % (36.0-48.0); Hemoglobin 11.5 g/dL (12.0-16.0); Immature Granulocytes Abs Auto 0.02 10^3/uL (0.00-0.03); Immature Granulocytes Pct Auto 0.2 % (0.0-0.5); Mean Corpuscular HGB Conc 36.5 g/dL (29.9-35.2); Mean Corpuscular Hemoglobin 32.5 pg (26.7-34.0); Mean Platelet Volume 11.9 fL (9.5-13.5); Monocytes Absolute Auto 0.6 10^3/uL (0.3-0.8); Monocytes Percent Auto 7.8 % (1.7-12.0); Neutrophils Absolute Auto 4.3 10^3/uL (1.4-6.5); Neutrophils Percent Auto 51.8 % (43.0-75.0); Platelet Count 240 10^3/uL (150-450); Red Blood Count 3.54 10^6/uL (4.20-5.40); Red Cell Distribution Width 12.9 % (11.0-15.0); White Blood Count 8.2 10^3/uL (4.0-11.0)
[2024-01-12] MEDS: PROMETHAZINE HCL 25 MG in 0.9 % SODIUM CHLORIDE 50 ML 204 MG IV (05:10)
[2024-01-12] MEDS: 0.9 % SODIUM CHLORIDE 1,000 ML 999 ML IV (05:10)
[2024-01-12 05:24] LABS: HCG Qualitative POSITIVE (NEGATIVE); Internal Control Within Normal Limits
[2024-01-12 05:29] LABS: Lactate/Lactic Acid 0.9 mmol/L (0.4-2.0)
[2024-01-12 05:36] LABS: Alanine Aminotransferase 8 U/L (14-59); Albumin Globulin Ratio 1.3; Albumin Level 3.5 g/dL (3.4-5.0); Alkaline Phosphatase 47 U/L (46-116); Anion Gap 12.5; Aspartate Amino Transferase 8 U/L (15-37); BUN Creatinine Ratio 8.3; Bilirubin Total 0.5 mg/dL (0.2-1.0); Calcium 8.6 mg/dL (8.5-10.1); Carbon Dioxide 24.7 mmol/L (21.0-32.0); Chloride 103 mmol/L (98-107); Estimated GFR (African America >60 (>=60); Estimated GFR (Non-African Ame >60 (>=60); Globulin 2.6 g/dL; Glucose 96 mg/dL (74-106); Potassium 3.2 mmol/L (3.5-5.1); Sodium 137 mmol/L (136-145); Total Protein 6.1 g/dL (6.4-8.2)
[2024-01-12 05:56] LABS: Bilirubin Urine NEGATIVE (NEGATIVE); Blood Urine NEGATIVE (NEGATIVE); Clarity Urine CLEAR (CLEAR); Color Urine LT. YELLOW (YELLOW); Glucose Urine UA NEGATIVE (NEGATIVE); Ketones Urine NEGATIVE (NEGATIVE); Leukocyte Esterase Urine NEGATIVE (NEGATIVE); Nitrite Urine NEGATIVE (NEGATIVE); Protein Urine NEGATIVE (NEG/TRACE); Urine Microscopic Indicated NO; Urobilinogen Urine 0.2 EU/dL (0.2-1.0)
[2024-01-12 06:20] VITALS: BP 119/74; PULSE 94; O2SAT 100
== END 2024-01-12 06:24 | disposition home or self-care (01) ==
PROVIDERS: Emergency Provider Internal Medicine
DX: O26.90 Pregnancy related conditions, unspecified, unspecified trimester (principal); R11.2 Nausea with vomiting, unspecified; O99.330 Smoking (tobacco) complicating pregnancy, unspecified trimester; F17.200 Nicotine dependence, unspecified, uncomplicated; Z3A.00 Weeks of gestation of pregnancy not specified
CPT/HCPCS: 36415; 80053; 81003; 83605; 83690; 84703; 85025; 96361; 96365; 99284; J2250

== ENCOUNTER 2024-01-19 22:59 | Emergency (ER) | payer OTHER, SELFPAY ==
[2024-01-19 23:07] VITALS: BP 130/78; PULSE 90; TEMP 36.6; O2SAT 98; BMI 29.8
--- OUTSIDE RECORDS SUMMARY | 2024-01-19 23:07 | XMS_ITS | CCD ---
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 (U) Negative Negative [facility] Bilirubin Test strip Ql (U)O rdered By: Aldair Sandra on 12-03-2023 Bilirubin Ql (U) Negative Negative [facility] Bilirubin.direct [Mass/volum e] in Serum or PlasmaOrdered By: Aldair Sandra on 12-03-2023 Bilirubin.direct [Mass/Vol] 0.10 mg/dL 0.03-0.18 [facility] Bilirubin.total [Mass/volume ] in Serum or PlasmaOrdered By: Aldair Sandra on 12-03-2023 Bilirubin [Mass/Vol] 0.8 mg/dL Normal 0.3-1.0 [facility] Comment on above: Performed By: #### H EPATIC, LIPASE, CBC, BMP #### [facility] [address] [place] [id number] [facility] CT abdomen pelvis w conon CT abdomen pelvis w con [facility] [address] [place] [address] [place] [address] CT Scan Report Signed Patient: Thuy Malik MR#: [id number] 35 : 2005 Acct:[id number] Age/Sex: 18 / F ADM Date: 12/03/23 Loc: ER Room: Type: [facility] ER Attending Dr: Copies to: Aldair Sandra PA-C Ordering Provider: Aldair Sandra PA-C Date of Service: 12/03/23 CT/CT abdomen pelvis w con: Abdominal Pain CT ABDOMEN AND PELVIS WITH INTRAVENOUS CONTRAST: CLINICAL HISTORY: Abdominal pain with nausea and vomiting since 10:00 AM COMPARISON: CT abdomen and pelvis 08/03/2023 TECHNIQUE: Spiral images were obtained through the abdomen and pelvis following the administration of intravenous contrast. This CT exam was performed using one or more following dose reduction techniques: Automated exposure control, adjustment of the mA and/or kV according to patient size, or use of iterative reconstruction technique. FINDINGS: Lung Bases: [No acute findings.] Organs:Liver gallbladder portal vein spleen pancreas and adrenal glands all appear unremarkable. No enhancing renal mass or hydronephrosis. Abdominal aorta appears normal in caliber.[ GI: Stomach is grossly unremarkable. Small bowel appears nondilated. Appendix appears normal. No acute colonic abnormality.[Postsurgical changes involving the rectosigmoid region. Pelvis:[Uterus is grossly unremarkable. Urinary bladder is grossly unremarkable. No adnexal mass.] Peritoneum/Retroperitoneum : No free air. No free fluid. No lymphadenopathy. Abd wall/Bones:Abdominal wall demonstrates no acute findings. Osseous structures demonstrate no acute process.[ CT/CT abdomen pelvis w con IMPRESSION: No acute findings. Impression dictated by: Rony Hanson Jr. DBob12/03/2023 3:17 PM Dictation Location: [place] [address] Transcribed By: PWS 12/03/23 1517 Dictated By: Rony Hanson Jr, DO 12/03/23 1508 Signed By: 12/03/23 1517 Normal [facility] Calcium [Mass/volume] in Ser um or PlasmaOrdered By: Aldair Sandra on 12-03-2023 Calcium [Mass/Vol] 9.6 mg/dL Normal 8.6-10.3 [facility] Comment on above: Performed By: #### H EPATIC, LIPASE, CBC, BMP #### [facility] [address] [place] [id number] [place] Calcium oxalate crystals [Pr esence] in Urine sediment by Light microscopyOrdered By: Aldair Sandra on 12-03-2023 Calcium oxalate crystals LM Ql (Urine sed) 1+ [HPF] [facility] Cannabinoids [Presence] in U rine by Screen methodOrdered By: Aldair Sandra on 12-03-2023 Cannabinoids Screen Ql (U) Positive High Negative [facility] Comment on above: These are unconfirme d results and should not be used for legal purposes. Drug Cut-Off Concentration: AMPH 1000 ng/mL NIKKI 200 ng/mL CHENG 200 ng/mL COCM 300 ng/mL OP 300 ng/mL PCP 25 ng/mL THC 20 ng/mL Carbon dioxide, total [Moles /volume] in Serum or PlasmaOrdered By: Aldair Sandra on 12-03-2023 CO2 [Moles/Vol] 18.4 mmol/L Low 21.0-31.0 [facility] Comment on above: Performed By: #### H EPATIC, LIPASE, CBC, BMP #### [facility] [address] [place] [address] [place] Chloride [Moles/volume] in S luciana or PlasmaOrdered By: Aldair Sandra on 12-03-2023 Chloride [Moles/Vol] 108 mmol/L High 98-107 [facility] Comment on above: Performed By: #### H EPATIC, LIPASE, CBC, BMP #### [facility] [address] [place] [address] [place] Color of Urine by AutoOrdere d By: Aldair Sandra on 12-03-2023 Color (U) Yellow Normal Yellow [facility] Comment on above: Order Comment: Name Collection Type:: Clean-Voided Midstream Performed By: #### A DDONUAPLUS, UHCG, CUU ####[place] [address] [address] Complete Blood Count Auto Di ffon 12-03-2023 Mean Corpuscular HGB Conc 34.1 g/dL Normal 32.0-35.0 [facility] Comment on above: Performed By: #### H EPATIC, LIPASE, CBC, BMP #### [address] Monocytes/100 WBC (Bld) 18.17 % Normal 0.00-20.00 [facility] Comment on above: Performed By: #### H EPATIC, LIPASE, CBC, BMP #### [address] NRBC% 0.1 /100{WBC} Normal 0-0.5 [facility] Comment on above: Performed By: #### H EPATIC, LIPASE, CBC, BMP #### [address] Creatinine [Mass/volume] in Serum or PlasmaOrdered By: Aldair Sandra on 12-03-2023 Creatinine [Mass/Vol] 0.77 mg/dL Normal 0.60-1.20 [facility] Comment on above: Performed By: #### H EPATIC, LIPASE, CBC, BMP #### [place] [address] [place] Dipstick and Microscopicon 0 12-03-2023 Bacteria,Urine 1+ High None Seen [facility] Comment on above: Order Comment: Name Collection Type:: Clean-Voided Midstream Performed By: #### A DDONUAPLUS, UHCG, CUU ####[address] Bilirubin,Urine Negative Normal Negative [facility] Comment on above: Order Comment: Name Collection Type:: Clean-Voided Midstream Performed By: #### A DDONUAPLUS, UHCG, CUU ####[address] Calcium Oxalate Crystals,Urine 1+ Normal [facility] Comment on above: Order Comment: Name Collection Type:: Clean-Voided Midstream Performed By: #### A DDONUAPLUS, UHCG, CUU ####[place] [id number] [facility] Glucose Ql (U) 30 mg/dL High Normal [facility] Comment on above: Order Comment: Name Collection Type:: Clean-Voided Midstream Performed By: #### A DDONUAPLUS, UHCG, CUU ####[address] Hyaline Casts,Urine None Seen Normal 0-1 [facility] Comment on above: Order Comment: Name Collection Type:: Clean-Voided Midstream Performed By: #### A DDONUAPLUS, UHCG, CUU ####[address] Mucus,Urine 3+ Critically abnormal [facility] Comment on above: Order Comment: Name Collection Type:: Clean-Voided Midstream Performed By: #### A DDONUAPLUS, UHCG, CUU ####[address] Nitrite,Urine Negative Normal Negative [facility] Comment on above: Order Comment: Name Collection Type:: Clean-Voided Midstream Performed By: #### A DDONUAPLUS, UHCG, CUU ####[place] [id number] [facility] Occult Blood,Urine 3+ High Negative [facility] Comment on above: Order Comment: Name Collection Type:: Clean-Voided Midstream Performed By: #### A DDONUAPLUS, UHCG, CUU ####[place] [id number] [facility] RBC,Urine 5-9 High 0-4 [facility] Comment on above: Order Comment: Name Collection Type:: Clean-Voided Midstream Performed By: #### A DDONUAPLUS, UHCG, CUU ####[place] [id number] [facility] Specificy Moore,Urine 1.034 High 1.001-1.03 0 [facility] Comment on above: Order Comment: Name Collection Type:: Clean-Voided Midstream Performed By: #### A DDONUAPLUS, UHCG, CUU ####[place] [id number] [facility] Squamous Epithelial Cell,Urine 3-4 High 0-2 [facility] Comment on above: Order Comment: Name Collection Type:: Clean-Voided Midstream Performed By: #### A DDONUAPLUS, UHCG, CUU ####[address] Urobilinogen,Urine 2 mg/dL High Normal [facility] Comment on above: Order Comment: Name Collection Type:: Clean-Voided Midstream Performed By: #### A DDONUAPLUS, UHCG, CUU ####[place] [id number] [facility] WBC,Urine 5-9 High 0-4 [facility] Comment on above: Order Comment: Name Collection Type:: Clean-Voided Midstream Performed By: #### A DDONUAPLUS, UHCG, CUU ####[place] [id number] [facility] Drug Screen,Urineon 12-03-19 24 Amphetamine Screen,Urine Negative Normal Negative [facility] Comment on above: Performed By: #### U RDS ####[place] [id number] [facility] Barbiturate Screen,Urine Negative Normal Negative [facility] Comment on above: Performed By: #### U RDS ####[place] [id number] [facility] Benzodiazepines Screen,Urine Negative Normal Negative [facility] Comment on above: Performed By: #### U RDS ####[address] Cannabinoid Screen,Urine Positive High Negative [facility] Comment on above: Result Comment: Thes e are unconfirmed results and should not be used for legal purposes. Drug Cut-Off Concentration: AMPH 1000 ng/mL NIKKI 200 ng/mL CHENG 200 ng/mL COCM 300 ng/mL OP 300 ng/mL PCP 25 ng/mL THC 20 ng/mL PERFORMED BY: [place] [address] PATHOLOGIST [employer]OR SPECIALIST ROBERT PRADHAN M.D. Performed By: #### U RDS ####[address] Cocaine Screen,Urine Negative Normal Negative [facility] Comment on above: Performed By: #### U RDS ####[address] Opiate Screen,Urine Negative Normal Negative [facility] Comment on above: Performed By: #### U RDS ####[address] Phencyclidine Screen,Urine Negative Normal Negative [facility] Comment on above: Performed By: #### U RDS ####[place] [id number] [facility] ECG 12 lead ECGon 12-03-2023 ECG 12 lead ECG [facility] [address] [place] [address] [place] [address] Electrocardiograph Report Signed Patient: Thuy Malik MR#: [id number] 33 : 2005 Acct:[id number] Age/Sex: 18 / F ADM Date: 12/03/23 Loc: ER Room: Type: [facility] ER Attending Dr: Ordering Provider: Aldair Sandra PA-C Date of Service: 12/03/23 ECG/ECG 12 lead ECG: Abdominal Pain Copies to: Test Reason : Blood Pressure : */* mmHG Vent. Rate : 67 BPM Atrial Rate : 67 BPM P-R Int : 118 ms QRS Dur : 72 ms QT Int : 424 ms P-R-T Axes : 20 33 -3 degrees QTcB Int : 448 ms Normal sinus rhythm with sinus arrhythmia T wave abnormality, consider inferior ischemia Abnormal ECG When compared with ECG of 03-Aug-2023 20:10, T wave inversion now evident in Inferior leads T wave inversion now evident in Anterior leads Confirmed by NEVAEH FERNANDEZ MD ([id number]) on 12/03/2023 3:25:58 PM Referred By: Electronically Signed By: NEVAEH FERNANDEZ MD Transcribed By: MUS Signed By Nevaeh Fernandez MD 12/03/23 1526 Normal [facility] Epithelial cells.squamous [# /area] in Urine sediment by Microscopy high power fieldOrdered By: Aldair Sandra on 12-03-2023 Epithelial cells.squamous LM.HPF (Urine sed) [#/Area] 3-4 [HPF] High 0-2 [facility] Erythrocyte distribution wid th [Ratio] by Automated countOrdered By: Aldair Sandra on 12-03-2023 Erythrocyte distribution width (RBC) [Ratio] 13.2 % Normal 11.9-15.3 [facility] Comment on above: Performed By: #### H EPATIC, LIPASE, CBC, BMP #### [facility] [address] Erythrocytes [#/area] in Uri ne sediment by Microscopy high power fieldOrdered By: Aldair Sandra on 12-03-2023 RBC LM.HPF (Urine sed) [#/Area] 5-9 [HPF] High 0-4 [facility] Erythrocytes [#/volume] in B lood by Automated countOrdered By: Aldair Sandra on 12-03-2023 RBC (Bld) [#/Vol] 4.33 10*6/uL Normal 3.60-5.00 [facility] Comment on above: Performed By: #### H EPATIC, LIPASE, CBC, BMP #### [facility] [address] Glucose [Mass/volume] in Ser um or PlasmaOrdered By: Aldair Sandra on 12-03-2023 Glucose [Mass/Vol] 126 mg/dL High 70-100 [facility] Comment on above: ADA recommended refe rence rangeRandom Glucose Reference Range is dependent on time and content of last meal. Glucose of more than 200 mg/dL in a nonstressed, ambulatory subject supports the diagnosis of Diabetes Mellitus. Result Comment: [place] Glucose Reference Range is dependent on time and content of last meal. Glucose of more than 200 mg/dL in a nonstressed, ambulatory subject supports the diagnosis of Diabetes Mellitus. ADA recommended reference range Performed By: #### H EPATIC, LIPASE, CBC, BMP #### [facility] [address] Glucose [Mass/volume] in Uri ne by Test stripOrdered By: Aldair Sandra on 12-03-2023 Glucose Test strip (U) [Mass/Vol] 30 mg/dL High Normal [facility] HCG ( test) IA.rapi d Ql (U)Ordered By: Aldair Sandra on 12-03-2023 HCG ( test) Ql (U) Negative [facility] HCG,Urineon 12-03-2023 Beta HCG ( test) Ql (U) Negative Normal [facility] Comment on above: Order Comment: Name Collection Type:: Clean-Voided Midstream Result Comment: PERF ORMED BY: [facility] [address] [place] [address] PATHOLOGIST [employer] SPECIALIST ROBERT PRADHAN M.D. Performed By: #### A DDONUARISHI, [facility], CUU ####[address] Hematocrit [Volume Fraction] of Blood by Automated countOrdered By: Aldair Sandra on 12-03-2023 Hematocrit (Bld) [Volume fraction] 40.1 % Normal 34.0-46.4 [facility] Comment on above: Performed By: #### H EPATIC, LIPASE, CBC, BMP #### [address] Hemoglobin Test strip Ql (U) Ordered By: Aldair Sandra on 12-03-2023 Hemoglobin Ql (U) 3+ High Negative [facility] Hemoglobin [Mass/volume] in BloodOrdered By: Aldair Sandra on 12-03-2023 Hemoglobin (Bld) [Mass/Vol] 13.6 g/dL Normal 11.8-15.4 [facility] Comment on above: Performed By: #### H EPATIC, LIPASE, CBC, BMP #### [facility] [address] Hepatic Panelon 12-03-2023 Albumin [Mass/Vol] 4.3 g/dL Normal 3.5-5.7 [facility] Comment on above: Performed By: #### H EPATIC, LIPASE, CBC, BMP #### [facility] [address] Bilirubin,Indirect 0.7 mg/dL Normal [facility] Comment on above: Performed By: #### H EPATIC, LIPASE, CBC, BMP #### [facility] [address] Bilirubin.indirect [Mass/Vol] 0.10 mg/dL Normal 0.03-0.18 [facility] Comment on above: Performed By: #### H EPATIC, LIPASE, CBC, BMP #### [address] Hyaline casts LM.LPF (Urine sed) [#/Area]Ordered By: Aldair Sandra on 12-03-2023 Hyaline casts (Urine sed) [#/Area] None seen [LPF] 0-1 [facility] Ketones [Presence] in Urine by Test stripOrdered By: Aldair Sandra on 12-03-2023 Ketones Ql (U) 2+ High Negative [facility] Comment on above: Order Comment: Name Collection Type:: Clean-Voided Midstream Performed By: #### A DDONCHRIS RAMIREZCG, CUU ####[address] Leukocyte esterase [Presence ] in Urine by Test stripOrdered By: Aldair Sandra on 12-03-2023 Leukocyte esterase Test strip Ql (U) 2+ High Negative [facility] Comment on above: Order Comment: Name Collection Type:: Clean-Voided Midstream Performed By: #### A DDONUAPLUS, UHCG, CUU ####[address] Leukocytes [#/area] in Urine sediment by Microscopy high power fieldOrdered By: Aldair Sandra on 08-19-2024 WBC LM.HPF (Urine sed) [#/Area] 5-9 [HPF] High 0-4 [facility] Leukocytes [#/volume] correc boris for nucleated erythrocytes in Blood by Automated counOrdered By: Aldair Sandra on 12-03-2023 WBC corrected for nucl RBC Auto (Bld) [#/Vol] 13.8 10*3/uL High 3.8-11.6 [facility] Leukocytes [#/volume] in Blo od by Automated countOrdered By: Aldair Sandra on 12-03-2023 WBC (Bld) [#/Vol] 13.8 10*3/uL High 3.8-11.6 [facility] Comment on above: Performed By: #### H EPATIC, LIPASE, CBC, BMP #### [facility] [address] [place] [address] Lipase [Enzymatic activity/v olume] in Serum or PlasmaOrdered By: Aldair Sandra on 12-03-2023 Lipase [Catalytic activity/Vol] 14.0 U/L Normal 11.0-82.0 [facility] Comment on above: Result Comment: PERF ORMED BY: [place] [address] PATHOLOGIST V[employer]OR SPECIALIST ROBERT PRADHAN M.D. Performed By: #### H EPATIC, LIPASE, CBC, BMP #### [facility] [address] [place] [address] [place] Lymphocytes [#/volume] in Bl ood by Automated countOrdered By: Aldair Sandra on 12-03-2023 Lymphocytes (Bld) [#/Vol] 2.8 10*3/uL Normal 1.00-4.8 [facility] Comment on above: Performed By: #### H EPATIC, LIPASE, CBC, BMP #### [facility] [address] [place] [address] [place] Lymphocytes/100 leukocytes i n Blood by Automated countOrdered By: Aldair Sandra on 12-03-2023 Lymphocytes/100 WBC (Bld) 20.0 % Normal . [facility] Comment on above: Performed By: #### H EPATIC, LIPASE, CBC, BMP #### [facility] [address] MCH [Entitic mass] by Automa boris countOrdered By: Aldair Sandra on 12-03-2023 MCH (RBC) [Entitic mass] 31.5 pg Normal 24.7-34.3 [facility] Comment on above: Performed By: #### H EPATIC, LIPASE, CBC, BMP #### [facility] [address] MCHC Auto (RBC) [Mass/Vol]Or dered By: Aldair Sandra on 12-03-2023 MCHC (RBC) [Mass/Vol] 34.1 g/dL 32.0-35.0 [facility] MCV [Entitic volume] by Auto mated countOrdered By: Aldair Sandra on 12-03-2023 MCV (RBC) [Entitic vol] 92.5 fL Normal 80-100 [facility] Comment on above: Performed By: #### H EPATIC, LIPASE, CBC, BMP #### [facility] [address] Monocyte distribution width [Entitic volume] in Blood by AutomatedOrdered By: Aldair Sandra on 12-03-2023 Monocyte distribution width Auto (Bld) [Entitic vol] 18.17 % 0.00-20.00 [facility] Mucus LM Ql (Urine sed)Order ed By: Aldair Sandra on 12-03-2023 Mucus Ql (Urine sed) 3+ [LPF] Abnormal [facility] Neutrophils [#/volume] in Bl ood by Automated countOrdered By: Aldair Sandra on 12-03-2023 Neutrophils (Bld) [#/Vol] 10.0 10*3/uL High 1.8-7.7 [facility] Comment on above: Performed By: #### H EPATIC, LIPASE, CBC, BMP #### [facility] [address] Nitrite Test strip Ql (U)Ord ered By: Aldair Sandra on 12-03-2023 Nitrite Ql (U) Negative Negative [facility] No Panel InformationOrdered By: Aldair Sandra on 12-03-2023 Estimated GFR (CKD-EPI) > 60.0 mL/Min [facility] Creatinine Clearance (Chem 121.80 [facility] Nucleated erythrocytes [Pres ence] in Blood by Automated countOrdered By: Aldair Sandra on 12-03-2023 Nucleated RBC Auto Ql (Bld) 0.1 /100{WBC} 0-0.5 [facility] Opiates [Presence] in Urine by Screen methodOrdered By: Aldair Sandra on 12-03-2023 Opiates Screen Ql (U) Negative Negative [facility] Phencyclidine Screen Ql (U)O rdered By: Aldair Sandra on 12-03-2023 Phencyclidine Ql (U) Negative Negative [facility] Platelet mean volume [Entiti c volume] in Blood by Automated countOrdered By: Aldair Sandra on 12-03-2023 Platelet mean volume (Bld) [Entitic vol] 10.4 fL Normal 6.3-10.7 [facility] Comment on above: Performed By: #### H EPATIC, LIPASE, CBC, BMP #### [facility] [address] [place] [address] [place] Platelets [#/volume] in Bloo d by Automated countOrdered By: Aldair Sandra on 12-03-2023 Platelets (Bld) [#/Vol] 240 10*3/uL Normal 150-450 [facility] Comment on above: Performed By: #### H EPATIC, LIPASE, CBC, BMP #### [facility] [address] [place] [address] [place] Potassium [Moles/volume] in Serum or PlasmaOrdered By: Aldair Sandra on 12-03-2023 Potassium [Moles/Vol] 3.5 mmol/L Normal 3.5-5.1 [facility] Comment on above: Performed By: #### H EPATIC, LIPASE, CBC, BMP #### [facility] [address] [place] [address] [place] Protein [Mass/volume] in Ser um or PlasmaOrdered By: Aldair Sandra on 12-03-2023 Protein [Mass/Vol] 6.7 g/dL Normal 6.4-8.9 [facility] Comment on above: Performed By: #### H EPATIC, LIPASE, CBC, BMP #### [facility] [address] Protein [Mass/volume] in Uri ne by Test stripOrdered By: Aldair Sandra on 12-03-2023 Protein (U) [Mass/Vol] 30 mg/dL High Negative [facility] Comment on above: Order Comment: Name Collection Type:: Clean-Voided Midstream Performed By: #### A DDONUAPLUS, UHCG, CUU ####[facility] [id number] Serum globulin measurement b y calculation (mass/volume)Ordered By: Aldair Sandra on 12-03-2023 Globulin (S) [Mass/Vol] 2.4 g/dL [facility] Comment on above: Performed By: #### H EPATIC, LIPASE, CBC, BMP #### [facility] [address] [place] [address] Serum or plasma albumin/glob ulin mass ratioOrdered By: Aldair Sandra on 12-03-2023 Albumin/Globulin [Mass ratio] 1.8 {ratio} [facility] Comment on above: Performed By: #### H EPATIC, LIPASE, CBC, BMP #### [facility] [address] [place] [address] Serum or plasma anion gap de terminationOrdered By: Aldair Sandra on 12-03-2023 Anion gap [Moles/Vol] 15.1 mmol/L High 6.0-15.0 [facility] Comment on above: Performed By: #### H EPATIC, LIPASE, CBC, BMP #### [facility] [address] [place] [address] Serum or plasma non-glucuron idated bilirubin measurement (mass/volume)Ordered By: Aldair Sandra on 12-03-2023 Bilirubin.indirect [Mass/Vol] 0.7 mg/dL [facility] Sodium [Moles/volume] in Ser um or PlasmaOrdered By: Aldair Sandra on 12-03-2023 Sodium [Moles/Vol] 138 mmol/L Normal 136-145 [facility] Comment on above: Performed By: #### H EPATIC, LIPASE, CBC, BMP #### [facility] [address] Specific gravity Test strip (U) [Rel density]Ordered By: Aldair Sandra on 12-03-2023 Specific gravity (U) [Rel density] 1.034 High 1.001-1.03 0 [facility] Urea nitrogen [Mass/volume] in Serum or PlasmaOrdered By: Aldair Sandra on 12-03-2023 Urea nitrogen [Mass/Vol] 12 mg/dL Normal 7-25 [facility] Comment on above: Performed By: #### H EPATIC, LIPASE, CBC, BMP #### [facility] [address] Urine Cultureon 12-03-2023 Bacteria identified Cx Nom (U) 20,000 colonies/ml mixed bacterial skin contaminants 2 Days PERFORMED BY: [place] [address] PATHOLOGIST VENDOR SPECIALIST ROBERT PRADHAN M.D. Normal [facility] Comment on above: Performed By: #### A DDONUAPLUS, UHCG, CUU ####[place] [address] [address] Urine appearanceOrdered By: Aldair Sandra on 12-03-2023 Appearance (U) Cloudy Critically abnormal Clear [facility] Comment on above: Order Comment: Name Collection Type:: Clean-Voided Midstream Performed By: #### A DDONUAPLUS, UHCG, CUU ####[place] [address] [address] Urobilinogen Test strip (U) [Mass/Vol]Ordered By: Aldair Sandra on 12-03-2023 Urobilinogen (U) [Mass/Vol] 2 mg/dL High Normal [facility] pH of Urine by Test stripOrd ered By: Aldair Sandra on 12-03-2023 pH (U) 5.5 [pH] Normal 5.0-9.0 [facility] Comment on above: Order Comment: Name Collection Type:: Clean-Voided Midstream Performed By: #### A DDONUAPLUS, UHCG, U ####[facility] [id number] [place] [id number] [facility] Coding Summary.on 10-03-2023 Coding Summary. OVVJVjyb88ZQn1pKg+PG hlYWQ+ RB2TWAMdY35pjJPxqY3wN7QUZY cXJoqyIUTXAZqFVySmupIvHC3c aXNjZXJu IC8+CS7dMSIqYyzglUAey1C0rC A8B94kwz5lIYhkhTZ2PLQyDdDy hdijv5mycYb7HDvbQwxsVzUk JWFjpP06BIT1nL70Le02tEPdbO Msb0vmtKl2XmDqAKYcNZG0jPem HHaow6FmPQZlP61xwEGkb0D2 TOCewQrlqNAuLmOkbWS9rJ5xGZ hxrcuso9shzlnyMhe3mc47yLFd a0L2nOU4V4KusyJ6UZGmgOYa ZxihrSMAiX9vgjrlh6vxrfkzSf PbJECiJBr4PHj3USQhoGwwKpSy PJ21UQR0OVDuamGqF9CmUOFf aWgyPwI0t0J9Js5ZZ6DULzxuE0 VNTUFSWTwvdGQ+UM99ni29F3Zx VehoDhw9TRHmXZQ4kBX4kQ1f RVHvISqif1A1dWT8H8KeeoAofe 4gb7fkROWmFPcgX65ilBNvl8U2 JOKzhAG8GTJpqCjfBjUeaY88 Oyc+WFJvgDxis0VcXuevx3tkc4 wwmRc1FugdDQCwyhMfhLiyZKR6 u9GlYh2oXMEtwHZ9pXD0dW3i NbUsJuC0JBhdE038QzOpqCPhUa ueE54iX6WvePS+RDGoAvu9EKEo dUfwDJ6uO4XuACTnohomcIXi lSowLE1wIABwipzxKBXwnC5cVY UpQ2w2NuLtNwR1UUyzX7NpTQLv voenGf47uW1rAyAkOkD0BWbd K1TfryN1VVMsqOPwWUzjZQM1E1 6yd9A5TPLcZHRxUAE0oPC2fR9u bGlnbjogbGVmdDsgdmVydGlj CZotHRyjW091WRHvhHikBcFiSC luZyBEYXRlOiAgMDYvMTkvMjAy NDwvdGQ+HRQoSGS6lEvwVEWw uQZyOQzdIl8smYwjgLweNQ9aMJ NybunkKTPlmQ3jRRIvgNHfoQcd AR2jHURgqzmsu648KfXhFYN9 DTRxdFRiR4LbxA6lEqQyFBKqFC GpG5VfkDUqZRisV019XPywUkQ6 TGFhhtXvB7FbQNWjwTumDsY6 o5F6Gi1Ea7YxzhhwF1AqzIEkOs JlXwsoSOo5E0XnAruimUO+PC90 JBCsTQ38LFe7JCV4pYheBFhj UTEaY3GaoV2zYuDpIOXoTACiDz c+PHRhYmxlIHdpZHRoPScxMDAl AnXafDljBT0hVj8eUJTmLAFu nPjlmBCvOrEgm5cdHROcRGrkIF 0jqGcuW0ZbyDD1ZIXnc8j7Ee58 J13xV1RdoRE+UTQruWS7rSY5 eN7fYsBzEkE6ICfoH950ObTxjK ZbFoqke6thk0cghEw2VhT3OXAg cnOytHvyFNO6y7PjFg35C21z IHdpZHRoPSIxNSUiIHZhbGlnbj 4chA8aBh7+AFIqqGE4zLZ6uU8q KzRjOcJ5QIhoL698TeUjvAVj Unnll3vjz7ejlXd5FkDaRBOdzo NqrYzvTFC8c1JyGt14B7UwnFay t4PrIzx2ou64mANek2H3wIJ2 P5FuGHUnatgdbGSxaQnlMG4eMO HhkhwhUPShwA9fVAOiN1f9TyBt QrO1RFaoC2AejcY1DUXlmABm JVFreAMAuB8nhmksj3ppnfpiIp MeFEDzWCw2OUs4KIIfuWsiMcSq KUS9AcC2QLI6bMZzhP6cgPsb dyxkrP8lGut+JIT6qZOayWFERZ 1lOjwvdGQ+SSCjCNI8nMjyEIxd NCMxyE1qJPJtV1i3DxVxPrY2 KVjcF1VhgdD3MEFvqBWfKAOwbA DRwG1eobgzf7cfachvWjEqKJBt WVt5NSd5KRAjhWeeHlEaQVW0 MoD2NGM9mKRttY0apYljhikxzE 9wOyc+VjztjDleKZU4EBy0E8Wc Ijz2RBXbaGcwTC5udEXlXWhr Uz4wrTanyHekRJ0iMPRxucfzh5 36RjZgy0tyXIQirMPtZWjzSTJ1 M59wm7E2FOPlGMHqESU6dHN2 zK6sfAfnohtcqWIidOfwgiAqnP nhWWylOYkpG732DFJbsJquOuJk UYs6J2GgCyq6VAGrsWzpHQ8r uKBsSLkgGp8mtRyecAxqYV7wZI Pwmgwcz908FqNxb9wfIPYbuFFo VLlyUIT5J30go8T0QWYiENMy YHW6jHZ2uH4nhCrwoponyLKmiU ovmdWihPlySCqqZAwpG058KZIq eFdsZbZijWc5K6FhZxl1HHZp mPfeKO1aiWYjVKscOu4tbCqksR whKF1lAGLbrnawf302RfPam1fl WTGlqXMgGSudQTT1W26rg9L9 MSVqEOGxGSW6zQQ2xW6eeRrwfd ogbGVmdDsgdmVydGljYWwtYWxp P796BJXumYthEbHtiIwydsOc MFybILt7G3VeSqtokMV+PC90YW OwSS82oGYgfWSrx7erkEg1MbQt XTEnHWT0gUaoMHkau4WaVQHn Z95ucBZlr2U3FTMkxBoyaRNhKo LznWP9xU1aTMntchtvd2botnqf Tjgcc9vhda91tY42Q85cNVzx RSGcGOHqOAXgDWPbsOamrs1biT 9wIi8+QLSvsLR0bAF7vI8bFSNk TvA5ZFudS581BuRrbIBsDxri b2rvk2xuoLx8LwU1OVTeofUpuG gqYRU7w3BsXd73F51xKKarEQVe ASIyGMCpNVZviHrcqr5bwY4s Ii8+JDHpoFU2rWX9bT8cDkUmQr U4HWvzE247ZhEczFLtDlqeX11s P9SmaXJ+JOFrPpb7TSHehOmz QQ2ktJFzKJymUx6oQUL4FgTvEt DmMUxfZ4ErDWMaasrempkhiEG0 XWLgQDVjnD65Xd4ykCrgTDKp zJUHkR5janvji3beorlyIuFmQZ EyAXs9ABt8VADrvIkeSiGuJYF8 OsC2GYC1nUQnyB6ooFkaooll dL1nR3RsXAIwuchtJu75lM2xFx NaUfX2PWvlEnh+Z9iLB04UPVGE NIePYOYBSW55YD78yRLzx8G2 oTA1B6GhTIJaniyjeofdlRA6CC LnFFWpwV28iHXwDVvwBc8pw5Q1 d757AEGnWCHrmG12Ou5rqOqv WSSjyWZDrP2qraprq0jiujfzZx WlIBXaXKg9BCd7KDFvvPkvDaAn PVH7SwH2EGP1mNAkyU7xqQzx zbjarJ5vHlv+MDIvMjYvMjAwND wvdGQ+IIRpZPB9pSwhQFfaIXVo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 diagnosis based follow up In the event that this physician does not participate in your insurance network, please consult with your insurance company to find a nearby participating provider. Patient Education Materials: Constipation, Adult, Weke-nc-Asoz; Abdominal Pain, Adult A MESSAGE TO ALL PATIENTS REGARDING OPIOIDS PRESCRIPTION OPIOIDS: WHAT YOU NEED TO KNOW Prescription opioids can be used to help relieve nrxsgivz-ii-senqzx pain and are often prescribed following a [...] be struggling with addiction, tell your health healthcare prof and ask f (more content not included)... Normal [facility] HEMATOLOGYOrdered By: SYSTEM SYSTEM on 09-30-2023 Basophils/100 WBC (Bld) 1.2 % Normal 0.0 - 2.0 % Remisol Heme Basophils/Leukocytes Auto (Bld) [Pure # fraction] 0.1 E9/L Normal 0.0 - 0.2 E9/L Remisol Heme Eosinophils (Bld) [#/Vol] 0.3 E9/L Normal 0.0 - 0.5 E9/L Remisol Heme Eosinophils/100 WBC (Bld) 4.3 % Normal 0.0 - 8.0 % Remisol Heme Erythrocyte distribution width (RBC) [Ratio] 13.8 % Normal 10.9 - 14.2 % Remisol Heme Hematocrit (Bld) [Volume fraction] 33.8 % Low 34.0 - 46.0 % Rem[facility] Heme Hemoglobin (Bld) [Mass/Vol] 12.1 g/dL Normal 12.0 - 16.0 gm/dL [facility] Lymphocytes (Bld) [#/Vol] 1.9 E9/L Normal 1.0 - 4.0 E9/L [facility] Lymphocytes/100 WBC (Bld) 26.2 % Normal 14.0 - 50.0 % [facility] Heme MCH (RBC) [Entitic mass] 33.0 pg Normal 27.0 - 34.0 pg Remisol Heme MCHC (RBC) [Mass/Vol] 35.7 g/dL Normal 31.4 - 36.0 gm/dL [facility]e MCV (RBC) [Entitic vol] 92.4 fL Normal 80.0 - 100.0 fL [facility] Monocytes (Bld) [#/Vol] 0.7 E9/L Normal 0.2 - 1.0 E9/L [facility]e Monocytes/100 WBC (Bld) 9.8 % Normal 4.0 - 14.0 % [facility] Heme Neutrophils (Bld) [#/Vol] 4.2 E9/L Normal 2.0 - 7.5 E9/L [facility] Neutrophils/100 WBC (Bld) 58.5 % Normal 36.0 - 75.0 % [facility] Platelet 232.0 E9/L Normal 150.0 - 500.0 E9/L [facility] Platelet mean volume (Bld) [Entitic vol] 8.6 fL Normal 6.4 - 10.8 fL [facility]e RBC (Bld) [#/Vol] 3.7 E12/L Low 4.3 - 5.9 E12/L [facility] WBC corrected for nucl RBC Auto (Bld) [#/Vol] 7.3 E9/L Normal 4.0 - 11.0 E9/L [facility] Hep Func Panelon 09-30-2023 Albumin [Mass/Vol] 4.0 g/dL Normal 3.3-5.0 [facility] Comment on above: Performed By: #### 2 [id number] #### [facility] [address] [place] [address] Albumin/Globulin (S) [Mass conc ratio] 1.8 Normal 1.1-2.2 [facility] Comment on above: Performed By: #### 2 [id number] #### [facility] [address] [place] [address] ALP [Catalytic activity/Vol] 37 Int._Unit/L Normal 21-98 [facility] Comment on above: Performed By: #### 2 [id number] #### [facility] [address] [place] [address] ALT No additional P-5'-P [Catalytic activity/Vol] 8 Int._Unit/L Normal 6-46 [facility] Comment on above: Performed By: #### 2 [id number] #### [facility] [address] [place] [address] AST [Catalytic activity/Vol] 13 Int._Unit/L Normal 5-43 [facility] Comment on above: Performed By: #### 2 [id number] #### [facility] [address] [place] [address] Bilirubin [Mass/Vol] 0.5 mg/dL Normal 0.0-1.1 [facility] Comment on above: Performed By: #### 2 [id number] #### [facility] [address] [place] [address] Bilirubin.direct [Mass/Vol] 0.1 mg/dL Normal 0.0-0.4 [facility] Comment on above: Performed By: #### 2 [id number] #### [facility] [address] [place] [address] Bilirubin.indirect [Mass or moles/Vol] 0.4 mg/dL Normal 0.1-0.9 [facility] Comment on above: Performed By: #### 2 [id number] #### [facility] [address] [place] [address] Globulin (S) [Mass/Vol] 2.2 g/dL Normal 1.4-4.0 [facility] Comment on above: Performed By: #### 2 [id number] #### [facility] [address] [place] [address] Protein [Mass/Vol] 6.2 g/dL Normal 6.0-7.8 [facility] Comment on above: Performed By: #### 2 [id number] #### [facility] [address] [place] [address] Lipase Levelon 09-30-2023 Lipase [Catalytic activity/Vol] 20 U/L Normal 13-58 [facility] Comment on above: Performed By: #### 2 [id number] #### [facility] [address] [place] [address] RAD - Preliminary Cat Scan R eporton 09-30-2023 RAD - Preliminary Cat Scan Report [id number] Normal [facility] SEROLOGYOrdered By: Ana Hutchins on 09-30-2023 Beta HCG ( test) Ql Negative (09/30/23 8:19 PM) Normal [facility] Man Sero UA with Cult Rflxon 09-30-19 Bilirubin Ql (U) Negative Normal Negative [facility] Comment on above: Performed By: #### 4 [id number] #### [facility] [address] [place] [address] Clarity (U) Turbid Abnormal Clear [facility] Comment on above: Performed By: #### 4 [id number] #### [facility] [address] [place] [address] Color (U) Yellow Normal Yellow [facility] Comment on above: Result Comment: Micr oscopic readings are only performed on those samples that meet specific criteria set forth by [facility]. Performed By: #### 4 [id number] #### [facility] [address] [place] [address] Epithelial cells.squamous Auto (Urine sed) [#/Area] >10 Invalid Interpretation Code [facility] Comment on above: Performed By: #### 4 [id number] #### [facility] [address] [place] [address] Glucose Ql (U) Negative Normal Negative [facility] Comment on above: Performed By: #### 4 [id number] #### [facility] [address] [place] [address] Hemoglobin Auto test strip (U) [Mass/Vol] Negative Normal Negative [facility] Comment on above: Performed By: #### 4 [id number] #### [facility] [address] [place] [address] Ketones Auto test strip Ql (U) Negative Normal Negative [facility] Comment on above: Performed By: #### 4 [id number] #### [facility] [address] [place] [address] Leukocyte esterase Auto test strip Ql (U) Negative Normal Negative [facility] Comment on above: Performed By: #### 4 [id number] #### [facility] [address] [place] [address] Mucus Auto Ql (U) Trace Normal Negative [facility] Comment on above: Performed By: #### 4 [id number] #### [facility] [address] [place] [address] Nitrite Auto test strip Ql (U) Negative Normal Negative [facility] Comment on above: Performed By: #### 4 [id number] #### [facility] [address] [place] [address] pH (U) 5.5 [pH] Invalid Interpretation Code 5.0-9.0 [facility] Comment on above: Performed By: #### 4 [id number] #### [facility] [address] [place] [address] Protein Ql (U) Negative Normal Negative [facility] Comment on above: Performed By: #### 4 [id number] #### [facility] [address] [place] [address] RBC Ql (U) 0-3 Normal 0-3 [facility] Comment on above: Performed By: #### 4 [id number] #### [facility] [address] [place] [address] Specific gravity (U) [Rel density] 1.023 Invalid Interpretation Code 1.005-1.03 0 [facility] Comment on above: Performed By: #### 4 [id number] #### [facility] [address] [place] [address] Urobilinogen (U) [Mass/Vol] Negative Normal Negative [facility] Comment on above: Performed By: #### 4 [id number] #### [facility] [address] [place] [address] WBC Auto (Urine sed) [#/Area] 0-5 Normal 0-5 [facility] Comment on above: Performed By: #### 4 [id number] #### [facility] [address] [place] [address] Type of Urine collection method Clean Catch Normal [facility] Comment on above: Performed By: #### 4 [id number] #### [facility] [address] [place] [address] URINALYSISOrdered By: SYSTEM SYSTEM on 09-30-2023 Bilirubin Ql (U) Negative Normal Negativemg /dL [facility] UA Auto SS Clarity (U) Turbid *ABN* (09/30/23 8:19 PM) Invalid Interpretation Code Clear [facility] UA Auto SS Color (U) Yellow 1 (09/30/23 8:19 PM) Normal Yellow [facility] UA Auto SS Comment on above: Interpretive Data: M icroscopic readings are only performed on those samples that meet specific criteria set forth by [facility]. Epithelial cells.squamous Auto (Urine sed) [#/Area] >10 graded/HPF Invalid Interpretation Code [facility] UA Auto SS Glucose Ql (U) Negative Normal Negativemg /dL [facility] UA Auto SS Hemoglobin Auto test strip (U) [Mass/Vol] Negative Normal Negativemg /dL [facility] UA Auto SS Ketones Auto test strip Ql (U) Negative Normal Negativemg /dL [facility] UA Auto SS Leukocyte esterase Auto test strip Ql (U) Negative Normal NegativeLe u/uL [facility] UA Auto SS Mucus Auto Ql (U) Trace graded/LPF Normal Negati vegr aded/LPF [facility] UA Auto SS Nitrite Auto test strip Ql (U) Negative Normal Negativemg /dL [facility] UA Auto SS pH (U) 5.5 *NA* (09/30/23 8:19 PM) Invalid Interpretation Code 5.0 - 9.0 [facility] UA Auto SS Protein Ql (U) Negative Normal Negativemg /dL [facility] UA Auto SS RBC Ql (U) 0-3 graded/HPF Normal 0-3graded/ HPF [facility] UA Auto SS Specific gravity (U) [Rel density] 1.023 *NA* (09/30/23 8:19 PM) Invalid Interpretation Code 1.005 - 1.030 [facility] UA Auto SS Urobilinogen (U) [Mass/Vol] Negative Normal Negativemg /dL [facility] UA Auto SS WBC Auto (Urine sed) [#/Area] 0-5 graded/HPF Normal 0-5graded/ HPF [facility] UA Auto SS URINALYSISOrdered By: Dalton carbajal on 09-30-2023 UA Spec Desc Clean Catch (09/30/23 8:19 PM) Normal [facility] UA Auto SS Work Phone: eGFRon 09-30-2023 eGFR 127 mL/min/1.73 m2 Normal >=59 [facility] Comment on above: Order Comment: Order added by Discern Expert. Performed By: #### 1 [id number] #### [facility] [address] [place] [address] Physician Referralon 024 Physician Referral [id number] Normal [facility] Ambulatory Visit Summaryon 0 08-29-2023 Ambulatory Visit Summary THUY MALIK :2005 Visit Date:08/29/2023 Ambulatory Visit Instructions Your Diagnosis Ovarian cyst Constipation BMI 31.0-31.9,adult Your Care Team Attending Physician - LALI MACK CNP Primary Care Physician - ALLI MACK CNP This Is Your Medications List docusate (docusate sodium 100 mg Cap) escitalopram (escitalopram 20 mg Tab) ibuprofen (ibuprofen 800 mg Tab) polyethylene glycol 3350 (Miralax 3350 17 gram packet) trazodone (traZODONE 50 mg Tab) Procedures Performed Sigmoidectomy. Discharge Vitals Temperature (Temporal Artery) 37.3 ?C Heart Rate (Peripheral) 74 Blood Pressure 120/62 Height 165.1 cm Height 65 in Weight 86.6 kg Weight 190.52 lb BMI 31.77 What to do next Scheduled Follow-Up Appointments Sunday 2:40 PM EDT With: ALLI MACK CNP Where: [facility] Normal [facility] Family Medicine Office/Clini c Noteon 08-29-2023 Family Medicine Office/Clinic Note Chief Complaint ED follow up HPI Staff Patient presents for ED follow up. ER followup: Hospital: [facility] Visit date: 08/27/2023 Symptoms the patient presented with: RUQ pain-ovarian cyst Current concerns: Pain characteristics: Pain location: left and right upper quadrant of abdomen Intensity:9/10 Onset: 1 month ago Medication used: ibuprofen Patient went [facility] to get jamie out. Patient informed that stomach looked good at that time. Patient has not called back to [facility] for a follow up. Patient was not told at the [facility] to make a follow up. Patient restarted docusate yesterday due to no bm x 4 days PHQ: 6 History of Present Illness Patient presents today in f/u for ED visit on 08/27/2023 for abdominal pain. She reports she had a CT a t the ED and they told her she has an ovarian cyst. She would like a referral to a [facility]. Additionally she reports she has not had a bowel movement in 4 days. She states she took one dulcolax tab and some miralax last PM but has not had a bowel movement yet. She is wondering if this is why her abdomen is hurting today. Review of Systems PHQ Score Initial [...] nausea, no vomiting, no diarrhea, no GI bleeding; + constipation Musculoskeletal: no back pain, no trauma Neurologic: no headache, no dizziness, no numbness, no weakness Psychiatric: no sleeping problems, no irritability, no mood swings/depression. Additional ROS info: Except as noted in the above Review of Systems and in the History of Present Illness all other systems have been reviewed and are negative or noncontributory. Physical Exam Vitals & Measurements T: 37.3 ?C(Temporal Artery) HR: 74(Peripheral) BP: 120/62 SpO2: 97% HT: 65 in HT: 165.1 cm WT: 86.6 kg WT: 190.52 lb BMI: 31.77 General: alert, no acute distress Skin: warm, dry Head: no trauma, normocephalic Neck: Trachea midline, no adenopathy, no tenderness Eye: normal conjunctiva, sclera clear Cardiovascular: regular rate and rhythm, normal peripheral perfusion Respiratory: Lungs CTA, respirations non labored Gastrointestinal: soft, non distended, mild tenderness RUQ, and around the umbilicus no guarding. Assessment/Plan 1. Ovarian cyst (N83.209: Unspecified ovarian cyst, unspecified side) Reviewed CT of the pelvis performed at [facility] with the patient Explained the cyst may rupture on its own but would send the referral to [facility] Ordered: Body Mass Index (BMI) documented 3008F Current smokeless tobacco user 1035F Depression Screening Negative 3352F [facility] External Ambulatory Referral Medication list documented in medical record [id number] 2. Constipation (K59.00: Constipation, unspecified) Encouraged to drink plenty of water - 64 oz per day Increase exercise Start polyethylene glycol 3350 17 gm dissolve in 8 oz of water or juice two times daily Patient to f/u and let provider know whether this worked or not. Ordered: polyethylene glycol 3350, 17 gm, Oral, BID, # 24 EA, Refills(s) 0, Pharmacy: [facility]/pharmacy #[id number], 165.1, cm, 08/29/23 13:18:00 EDT, Height/Length Dosing, 86.6, kg, 08/29/23 13:18:00 EDT, Weight Dosing 3. BMI 31.0-31.9,adult (Z68.31: Body mass index [BMI] 31.0-31.9, adult) Ordered: polyethylene glycol 3350, 17 gm, Oral, BID, # 24 EA, Refills(s) 0, Pharmacy: [facility]/pharmacy #[id number], 165.1, cm, 08/29/23 13:18:00 EDT, Height/Length Dosing, 86.6, kg, 08/29/23 13:18:00 EDT, Weight Dosing Body Mass Index (BMI) documented 3008F Current smokeless tobacco user 1035F Depression Screening Negative 3352F Medication list documented in medical record [id number] Follow-up No qualifying data available Patient Education Ovarian Cyst, Wczo-ql-Grca Problem List/Past Medical History Ongoing Acute upper respiratory infection BMI 31.0-31.9,adult Depression Syncope and collapse Historical No qualifying data Procedure/Surgical History Sigmoidectomy. Medications docusate sodium 100 mg Cap, 100 mg= 1 cap(s), Oral, BID, PRN escitalopram 20 mg Tab, 20 mg= 1 tab(s), Oral, Daily, 1 refills ibuprofen 800 mg Tab, 800 mg= 1 tab(s), Oral, q6hr Miralax 3350 17 gram packet, 17 gm, Oral, BID traZODONE 50 mg Tab, 50 mg= 1 tab(s), Oral, Once a day (at bedtime), 1 refills Allergies No Known Allergies Social History Alcohol - Denies Alcohol Use, 04/11/2022 1-2 times per week, 10/03/2022 Substance Abuse - Denies Substance Abuse, 05/23/2023 Current, Marijuana, Daily, 08/29/2023 Tobacco - High Risk, 04/11/2022 Current vaping or e-cigarette use Smokeless Tobacco Use:. Ready to change: No. Household tobacco concerns: No. Yes, 08/29/2023 Immunizations (more content not included)... Normal [facility] Comment on above: Result Comment: Elec tronically Signed By: ALLI MACK CNP\.br\Date and Time Signed: 08/29/23 14:08 EDT Patient Educationon 08-29-19 Patient Education Obstetrics and Gynec ology Ovarian Cyst An ovarian cyst is a fluid-filled sac on an ovary. Most of these cysts go away on their own and are not cancer. Some cysts need treatment. What are the causes? ? Ovarian hyperstimulation syndrome. Some medicines may lead to this problem. ? Polycystic ovarian syndrome (PCOS). Problems with body chemicals (hormones) can lead to this condition. ? The normal menstrual cycle. What increases the risk? ? Being overweight or very overweight. ? Taking medicines to increase your chance of getting . ? Using some types of control. ? Smoking. What are the signs or symptoms? Many ovarian cysts do not cause symptoms. If you get symptoms, you may have: ? Pain or pressure in the area between the hip bones. ? Pain in the lower belly. ? Pain during sex. ? Swelling in the lower belly. ? Periods that are not regular. ? Pain with periods. How is this treated? Many ovarian cysts go away on their own without treatment. If you need treatment, it may include: ? Medicines for pain. ? Fluid taken out of the cyst. ? The cyst being taken out. ? control pills or other medicines. ? Surgery to remove the ovary. Follow these instructions at home: ? Take onkk-qji-siqfdsr and prescription medicines only as told by your doctor. ? Ask your doctor if you should avoid driving or using machines while you are taking your medicine. ? Get exams and Pap tests as told by your doctor. ? Return to your normal activities when your doctor says that it is safe. ? Do not smoke or use any products that contain nicotine or tobacco. If you need help quitting, ask your doctor. ? Keep all follow-up visits. Contact a doctor if: ? Your periods: ? Are late. ? Are not regular. ? Stop. ? Are painful. ? You have pain in the area between your hip bones, and the pain does not go away. ? You feel pressure on your bladder. ? You have trouble peeing. ? You feel full, or your belly hurts, swells, or bloats. ? You gain or lose weight without trying, or you are less hungry than normal. ? You feel pain and pressure in your back. ? You feel pain and pressure in the area between your hip bones. ? You think you may be . Get help right away if: ? You have pain in your belly that is very bad or gets worse. ? You have pain in the area between your hip bones, and the pain is very bad or gets worse. ? You cannot eat or drink without vomiting. ? You get a fever or chills all of a sudden. ? Your period is a lot heavier than usual. Summary ? An ovarian cyst is a fluid-filled sac on an ovary. ? Some cysts may cause problems and need treatment. ? Most of these cysts go away on their own. This information is not intended to replace advice given to you by your health care provider. Make sure you discuss any questions you have with your health care provider. Document Revised: 09/09/2020 Document Reviewed: 09/09/2020 [employer] Patient Education ? 2022 [employer] Normal [facility] B hCG Qualon 08-27-2023 Beta HCG ( test) Ql Negative Normal [facility] Comment on above: Performed By: #### 2 495231, [id number], 6004186, 1872911, 43455397, 7525218 ####[facility] [address] [place] [place] [address] [facility] 08-27-2023 Anion gap [Moles/Vol] 10 mmol/L Normal 6-16 [facility] Comment on above: Performed By: #### 2 410227, 83596343, 8285905, 3398862, 09271528, 4818606 ####[facility] [address] [place] [address] Calcium [Mass/Vol] 8.9 mg/dL Normal 8.9-11.1 [facility] Comment on above: Performed By: #### 2 132362, 13150363, 0615746, 3467722, 16735010, 1396753 ####[facility] [address] [place] [address] Chloride [Moles/Vol] 109 mmol/L Normal 101-111 [facility] Comment on above: Performed By: #### 2 094549, 10441996, 6673522, 4240107, 31397370, 6156591 ####[facility] [address] [place] [address] CO2 [Moles/Vol] 24 mmol/L Normal 21-31 [facility] Comment on above: Performed By: #### 2 238394, 08362795, 8140378, 4544949, 52378933, 1727521 ####[facility] [address] [place] [address] Creatinine [Mass/Vol] 0.7 mg/dL Normal 0.5-1.3 [facility] Comment on above: Performed By: #### 2 475638, 06562470, 7221397, 2211425, 10079728, 8914746 ####[facility] [address] [place] [address] Glucose [Mass/Vol] 98 mg/dL Normal 55-199 [facility] Comment on above: Performed By: #### 2 610047, 33452212, 9790842, 8977077, 35717253, 9902959 ####[facility] [address] [place] [address] Potassium [Moles/Vol] 4.4 mmol/L Normal 3.5-5.3 [facility] Comment on above: Performed By: #### 2 783885, 57538343, 8903862, 8734257, 33855692, 8482769 ####[facility] [address] [place] [address] Sodium [Moles/Vol] 139 mmol/L Normal 135-145 [facility] Comment on above: Performed By: #### 2 019809, 71723374, 2992955, 4790470, 86919863, 0873952 ####[facility] [address] [place] [address] Urea nitrogen [Mass/Vol] 17 mg/dL Normal 5-21 [facility] Comment on above: Performed By: #### 2 528032, 11149091, 9980713, 8710292, 44906447, 4946504 ####[facility] [address] [place] [address] Urea nitrogen/Creatinine [Mass ratio] 24 No Units High 10-20 [facility] Comment on above: Performed By: #### 2 929175, 05554406, 4425446, 4023243, 05581364, 0737524 ####[facility] [address] [place] [address] CBC w/ Auto Diffon 4 Basophils/100 WBC (Bld) 0.9 % Normal 0.0-2.0 [facility] Comment on above: Performed By: #### 2 575517, 20597434, 2357057, 0823319, 82904480, 6341312 ####[address] [place] [address] Basophils/Leukocytes Auto (Bld) [Pure # fraction] 0.1 E9/L Normal 0.0-0.2 [facility] Comment on above: Performed By: #### 2 591809, 05239242, 7981353, 6442824, 69580646, 5919349 ####[address] [address] Eosinophils (Bld) [#/Vol] 0.3 E9/L Normal 0.0-0.5 [facility] Comment on above: Performed By: #### 2 922620, 80652002, 1042017, 8318741, 96228143, 3670626 ####[address] [address] Eosinophils/100 WBC (Bld) 4.3 % Normal 0.0-8.0 [facility] Comment on above: Performed By: #### 2 254153, 23195291, 7156410, 8638172, 58274550, 7343402 ####[address] [address] Erythrocyte distribution width (RBC) [Ratio] 14.7 % High 10.9-14.2 [facility] Comment on above: Performed By: #### 2 093040, 32442666, 0992908, 3589788, 99303404, 5788484 ####[address] [address] Hematocrit (Bld) [Volume fraction] 34.6 % Normal 34.0-46.0 [facility] Comment on above: Performed By: #### 2 209844, 32565831, 7445679, 8840642, 11067148, 7665474 ####[address] [address] Hemoglobin (Bld) [Mass/Vol] 11.9 g/dL Low 12.0-16.0 [facility] Comment on above: Performed By: #### 2 389309, 26326383, 8379315, 4134215, 86344168, 7380139 ####[address] [address] Lymphocytes (Bld) [#/Vol] 2.8 E9/L Normal 1.0-4.0 [facility] Comment on above: Performed By: #### 2 650455, 54716414, 9407493, 1553606, 36990311, 6524563 ####[address] [address] Lymphocytes/100 WBC (Bld) 41.5 % Normal 14.0-50.0 [facility] Comment on above: Performed By: #### 2 954182, 61509326, 8943503, 5618211, 41187547, 2366845 ####[address] [address] MCH (RBC) [Entitic mass] 32.3 pg Normal 27.0-34.0 [facility] Comment on above: Performed By: #### 2 396344, 37370795, 3221492, 2287847, 56801547, 4228675 ####[address] [address] MCHC (RBC) [Mass/Vol] 34.5 g/dL Normal 31.4-36.0 [facility] Comment on above: Performed By: #### 2 172051, 40059315, 9077997, 1433860, 20043018, 0391108 ####[address] [address] MCV (RBC) [Entitic vol] 93.6 fL Normal 80.0-100.0 [facility] Comment on above: Performed By: #### 2 355696, 77869930, 2228155, 7752113, 52035934, 1655092 ####[address] [address] Monocytes (Bld) [#/Vol] 0.8 E9/L Normal 0.2-1.0 [facility] Comment on above: Performed By: #### 2 871964, 85837598, 8214600, 1211876, 67006890, 1458881 ####[address] [address] Neutrophils (Bld) [#/Vol] 2.8 E9/L Normal 2.0-7.5 [facility] Comment on above: Performed By: #### 2 599091, 50689285, 3510750, 2165587, 75799765, 5365099 ####[address] [place] [address] Neutrophils/100 WBC (Bld) 41.6 % Normal 36.0-75.0 [facility] Comment on above: Performed By: #### 2 122448, 56856112, 9725344, 3043625, 54041308, 4258494 ####[address] [address] Platelet mean volume (Bld) [Entitic vol] 8.8 fL Normal 6.4-10.8 [facility] Comment on above: Performed By: #### 2 546954, 21384714, 6338656, 9265386, 66440165, 0731782 ####[address] [address] Platelets (Bld) [#/Vol] 278.0 E9/L Normal 150.0-500. 0 [facility] Comment on above: Performed By: #### 2 209723, 74474974, 7824175, 3981728, 33561226, 5863436 ####[address] [address] RBC (Bld) [#/Vol] 3.7 E12/L Low 4.3-5.9 [facility] Comment on above: Performed By: #### 2 965884, 51066401, 8346902, 1480999, 51695186, 8868506 ####[address] [address] WBC corrected for nucl RBC Auto (Bld) [#/Vol] 6.8 E9/L Normal 4.0-11.0 [facility] Comment on above: Performed By: #### 2 008741, 83606294, 3825000, 9867079, 37404521, 5255780 ####[address] [place] [address] CHEMISTRYOrdered By: SYSTEM SYSTEM on 08-27-2023 Albumin [Mass/Vol] 4.1 g/dL Normal 3.3 - 5.0 gm/dL Remisol Chem Albumin/Globulin [Mass ratio] 2.0 {ratio} Normal 1.1 - 2.2 Remisol Chem ALP [Catalytic activity/Vol] 39 [iU]/d Normal 21 - 98 Int._Unit/ L Remisol Chem ALT No additional P-5'-P [Catalytic activity/Vol] 9 [iU]/d Normal 6 - 46 Int._Unit/ L Remisol Chem Anion gap [Moles/Vol] 10 mmol/L Normal 6 - 16 mEq/L Remisol Chem AST [Catalytic activity/Vol] 16 [iU]/d Normal 5 - 43 Int._Unit/ L Remisol Chem Bilirubin [Mass/Vol] 0.6 mg/dL Normal 0.0 - 1 .1 mg/dL Remisol Chem Bilirubin.direct [Mass/Vol] 0.0 mg/dL Normal 0.0 - 0.4 mg/dL Remisol Chem Bilirubin.indirect [Mass or moles/Vol] 0.6 mg/dL Normal 0.1 - 0.9 mg/dL Remisol Chem Calcium [Mass/Vol] 8.9 mg/dL Normal 8.9 - 11. 1 mg/dL Remisol Chem Chloride [Moles/Vol] 109 mmol/L Normal 101 - 1 11 mmol/L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 laboratory at [phone] for redraw instructions. Result Comment: A he matocrit value greater than 55% may lead to inaccurate results in coagulation testing. Patients having hematocrit values >55% require a special collection tube for coagulation studies. Please contact the laboratory at [phone] for redraw instructions. Performed By: #### P P #### [facility] [address] Serum globulin measurement b y calculation (mass/volume)Ordered By: Kim Schwartz on 08-03-2023 Globulin (S) [Mass/Vol] 2.6 g/dL [facility] Comment on above: Performed By: #### F ENTANYL WB ####[facility] ,#### CMP, HCGQUAL, CBC ####[address] Serum or plasma albumin/glob ulin mass ratioOrdered By: Kim Schwartz on 08-03-2023 Albumin/Globulin [Mass ratio] 1.7 {ratio} [facility] Comment on above: Performed By: #### F ENTANYL WB ####[facility] ,#### CMP, HCGQUAL, CBC ####[address] Serum or plasma anion gap de terminationOrdered By: Kim Rutledgeever on 08-03-2023 Anion gap [Moles/Vol] 9.7 mmol/L Normal 6.0-15.0 [facility] Comment on above: Performed By: #### F ENTANYL WB ####[facility] ,#### CMP, HCGQUAL, CBC ####[address] Sodium [Moles/volume] in Ser um or PlasmaOrdered By: Kim Schwartz on 08-03-2023 Sodium [Moles/Vol] 140 mmol/L Normal 136-145 [facility] Comment on above: Performed By: #### F ENTANYL WB ####[facility] ,#### CMP, HCGQUAL, CBC ####[address] Urea nitrogen [Mass/volume] in Serum or PlasmaOrdered By: Kim Schwartz on 08-03-2023 Urea nitrogen [Mass/Vol] 12 mg/dL Normal 7-25 [facility] Comment on above: Performed By: #### F ENTANYL WB ####[facility] ,#### CMP, HCGQUAL, CBC ####[facility] [id number] [place] [address] [facility] Family Medicine Office/Clini c Noteon 06-21-2023 Family [...] also presents with illness. Patient was at [place] [facility] 3 days ago and was prescribed [...] She is agreeable to a referral to addiction psychiatrist or psychiatrist. Patient states she went to [...] one tablet at bedtime Discussed referral to addiction [facility] in agreement Ordered: [facility] External Ambulatory Referral 2. Acute upper respiratory infection (J06.9: Acute upper respiratory infection, unspecified) Explained viral vs bacterial infection Encouraged increase fluids Instructed to finish the cephalexin prescribed by the ED f/u if no improvement Ordered: Influenza Type A&B POC 61438 3. BMI 31.0-31.9,adult (Z68.31: Body mass index [...] visits. Follow-up With When Contact Information ALLI MACK CNP, FAM Within 6 months Additional Instructions: Depression Patient Education Upper Respiratory Infection, Adult, Ckkh-tn-Pnze Problem List/Past Medical History Ongoing Acute upper [...] inactivated 05/23/2023 G (more content not included)... [facility] Comment on above: Result Comment: Elec tronically Signed By: ALLI MACK CNP\.br\Date and Time Signed: 06/21/23 07:31 EST Physician Referralon 024 Physician Referral [id number] [facility] Ambulatory Visit Summaryon 0 06-20-2023 Ambulatory Visit Summary THUY MALIK :2005 Visit Date:06/20/2023 Ambulatory Visit Instructions Your Diagnosis Depression Acute upper respiratory infection BMI 31.0-31.9,adult Your Care Team Attending Physician - ALLI MACK CNP Primary Care Physician - ALLI MACK CNP This Is Your Medications List cephalexin [...] Appointments Sunday 2:40 PM EDT With: ALLI MACK CNP Where: [facility] Patient Educationon 06-20-19 24 Patient Education Infectious [...] to help relieve symptoms, such as: ? Fqxi-diu-hycspxx cold medicines. ? Medicines to reduce coughing [...] other clear broths. General instructions ? Take ikii-icx-jwbefll and prescription medicines only as told by [...] cannot use soap and water, use hand engineer internship. ? Avoid touching your mouth, face, eyes, [...] get better within 7?10 days. ? Take fusa-qjb-bjzawxc and prescription medicines only as told by your doctor. This information is not intended to replace advice given to you by your health care (more content not included)... [facility] Ambulatory Visit Summaryon 0 05-23-2023 Ambulatory Visit Summary THUY MALIK :2005 Visit Date:05/23/2023 Ambulatory Visit Instructions Your Diagnosis Depression Encounter for immunization Your Care Team Attending Physician - ALLI MACK CNP Primary Care Physician - Socorro Casarez This Is Your Medications List escitalopram (escitalopram 20 mg Tab) trazodone (traZODONE 50 mg Tab) Procedures Performed none. Discharge Vitals Heart Rate (Peripheral) 97 Blood Pressure 124/74 Height 168 cm Height 66 in Weight 90 kg Weight 198 lb BMI 31.89 What to do next Scheduled Follow-Up Appointments Sunday 1:40 PM EST With: Socorro Casarez [facility] Consent for Flu Vaccineon Consent for Flu Vaccine [id number] [facility] Family Medicine Office/Clini c Noteon 05-23-2023 Family [...] Daily, # 90 tab(s), Refills(s) 1, Pharmacy: [id number], 168, cm, 05/23/23 13:08:00 EST, Height/Length Dosing, 90, kg, 05/23/23 13:08:00 EST, Weight Dosing Completed & reviewed the PHQ-9 score of 13 and the MARCIAL-7 score of 18 today in the office escitalopram, 20 mg = 1 tab(s), Oral, Daily, # 90 tab(s), Refills(s) 1, Pharmacy: [id number], 168, cm, 05/23/23 13:08:00 EST, Height/Length Dosing, 90, kg, 05/23/23 13:08:00 EST, Weight Dosing f/u in 4 weeks Ordered: influenza virus vaccine, inactivated, 0.5 mL, Injection, IntraMuscular, Once, Stop date 05/23/23 14:00:00 EST, Routine, Start date 05/23/23 14:00:00 EST trazodone, 50 mg = 1 tab(s), Oral, Once a day (at bedtime), # 90 tab(s), Refills(s) 1, Pharmacy: [id number], 168, cm, 05/23/23 13:08:00 EST, Height/Length Dosing, 90, kg, 05/23/23 13:08:00 EST, Weight Dosing 2. Encounter to establish care (Z76.89: Persons encountering health services in other specified circumstances) 3. Encounter for immunization (Z23: Encounter for immunization) Ordered: influenza virus vaccine, inactivated, 0.5 mL, Injection, IntraMuscular, Once, Stop date 05/23/23 14:00:00 EST, Routine, Start date 05/23/23 14:00:00 EST FIRST VACCINE w/o Vacuum System Tester Admin Charge [id number] Orders: escitalopram, 20 mg = 1 tab(s), Oral, Daily, # 90 tab(s), Refills(s) 1, Pharmacy: [facility] [id number], 168, cm, 05/23/23 13:08:00 EST, [...] 1 refills (more content not included)... Normal [facility] Comment on above: Result Comment: Elec tronically Signed By: CINDI COTE, ALLI Lynn\.br\Date and Time Signed: 05/23/23 13:50 EST Patient [...] pray, or go to a place of rastafari. ? Do some deep breathing. To do [...] or salt (sodium). General instructions ? Take udiu-pyj-mufture and prescription medicines only as told by [...] Kristan: [email or web address][email or web address] (more content not included)... Normal [facility] CHEMISTRYOrdered By: SYSTEM SYSTEM on 07-20-2022 25-hydroxyvitamin [...] (Bld) [Mass fraction] 4.3 % Normal <=5.9% [facility] ChemAutoSS Cholesterol [Mass/volume] in Serum or PlasmaOrdered By: Dean Solis on 07-10-2022 Cholesterol [Mass/Vol] 134 mg/dL 140-200 [facility] Comment on above: Chol less than 200 m g/dl low riskChol 201-239 mg/dl borderline riskChol 240 mg/dl and greater high risk Cholesterol in LDL Calc [Mas s/Vol]Ordered By: Dean Solis on 07-10-2022 Cholesterol in LDL [Mass/Vol] 69 mg/dL 0-100 [facility] Comment on above: LDL ATP III CLASSIFI CATIONLDL less than 100 mg/dL OptimalLDL 100-129 mg/dL Near or above optimalLDL 130-159 mg/dL Borderline highLDL 160-189 mg/dL HighLDL greater than 189 mg/dL Very high Cholesterol in VLDL Calc [Ma ss/Vol]Ordered By: Dean Solis on 07-10-2022 Cholesterol in VLDL [Mass/Vol] 12 mg/dL [facility] Serum or plasma high density lipoprotein (HDL) cholesterol measurementOrdered By: Dean Solis on 07-10-2022 Cholesterol in HDL [Mass/Vol] 53 mg/dL 35-85 [facility] Comment on above: HDL CHOL ATP-III CLA SSIFICATION Cardiovascular RiskHDL > or equal to 60 mg/dL LOWHDL < 40 mg/dL HIGH Serum or plasma total choles terol/high density lipoprotein (HDL) cholesterol mass ratOrdered By: Dean Solis on 07-10-2022 Cholesterol.total/Chol esterol in HDL [Mass ratio] 2.5 {ratio} <5.0 [facility] Thyrotropin [Units/volume] i n Serum or PlasmaOrdered By: Dean Solis on 07-10-2022 TSH Qn 3.34 m[IU]/L 0.45-5.33 [facility] Triglyceride [Mass/volume] i n Serum or PlasmaOrdered By: Dean Solis on 07-10-2022 Triglyceride [Mass/Vol] 62 mg/dL 0-149 [facility] Comment on above: TRIG ATP III CLASSIF ICATIONTRIG less than 150 mg/dL NormalTRIG 150-199 mg/dL Borderline highTRIG 200-500 mg/dL High TRIG greater than 500 mg/dL Very highStandard traceable to the Center for Disease Conrtrol and Prevention (CDC) test method. Vitamin D+Metabolites [Mass/ volume] in Serum or PlasmaOrdered By: Dean Solis on 07-10-2022 Vitamin D+Metabolites [Mass/Vol] 12.0 ng/mL 30-100 [facility] Comment on above: VITAMIN D STATUS 25( [place])VITAMIN D RANGE (ng/mL) Deficient <20 Insufficient 20 to <30Sufficient 30 to 100Reference: Cem MF,Bernadine OSBORNE, Trudi PRICE, et al. Evaluation,treatment, and prevention of vitamin D deficiency; an Endocrine Society clinical practice guideline. JCEM. 2010; 96(7):1911-30. ACETAMINOPHENon 07-09-2022 Acetaminophen [Mass/Vol] ug/mL Critically low 10.0-30.0 [facility] Comment on above: Performed By: #### C SERINA GUPTA ACET #### [facility] [address] [place] [address] Dr. Skylar Ramirez CBC AUTO DIFFon 07-09-2022 BASO # 0.1 103/ul Normal 0.0-0.1 [facility] Comment on above: Performed By: #### C BC #### [facility] [address] [place] [address] Dr. Skylar Ramirez Basophils/100 WBC (Bld) 0.6 % Normal 0.2-2.0 [facility] Comment on above: Performed By: #### C BC #### [facility] [address] [place] [address] Dr. Skylar Ramirez EO # 0.1 103/ul Normal 0.0-0.7 [facility] Comment on above: Performed By: #### C BC #### [facility] [address] [place] [address] Dr. Skylar Ramirez Eosinophils/100 WBC (Bld) 1.0 % Normal 0.9-7.0 [facility] Comment on above: Performed By: #### C BC #### [facility] [address] [place] [address] Dr. Skylar Ramirez Erythrocyte distribution width (RBC) [Ratio] 12.6 % Normal 11.0-15.0 [facility] Comment on above: Performed By: #### C BC #### [facility] [address] [place] [address] Dr. Skylar Ramirez Hematocrit (Bld) [Volume fraction] 39.7 % Normal 36.0-48.0 [facility] Comment on above: Performed By: #### C BC #### [facility] [address] [place] [address] Dr. Skylar Ramirez Hemoglobin (Bld) [Mass/Vol] 14.4 g/dL Normal 12.0-16.0 [facility] Comment on above: Performed By: #### C BC #### [facility] [address] [place] [address] Dr. Skylar Ramirez IG # 0.03 10e3/ul Normal 0.00-0.03 [facility] Comment on above: Performed By: #### C BC #### [facility] [address] [place] [address] Dr. Skylar Ramirez IG % 0.4 % Normal 0.0-0.5 [facility] Comment on above: Performed By: #### C BC #### [facility] [address] [place] [address] Dr. Skylar Ramirez LYMPH # 2.2 103/ul Normal 1.2-3.8 [facility] Comment on above: Performed By: #### C BC #### [facility] [address] [place] [address] Dr. Skylar Ramirez Lymphocytes/100 WBC (Bld) 27.4 % Normal 20.5-60.0 [facility] Comment on above: Performed By: #### C BC #### [facility] [address] [place] [address] Dr. Skylar Ramirez MANUAL DIFF REQ NO Normal [facility] Comment on above: Performed By: #### C BC #### [facility] [address] [place] [address] Dr. Skylar Ramirez MCH (RBC) [Entitic mass] 33.6 pg Normal 26.7-34.0 [facility] Comment on above: Performed By: #### C BC #### [facility] [address] [place] [address] Dr. Skylar Ramirez MCHC (RBC) [Mass/Vol] 36.3 g/dL Critically high 29.9-35.2 [facility] Comment on above: Performed By: #### C BC #### [facility] [address] [place] [address] Dr. Skylar Ramirez MCV (RBC) [Entitic vol] 92.5 fL Normal 81.0-99.0 [facility] Comment on above: Performed By: #### C BC #### [facility] [address] [place] [address] Dr. Skylar Ramirez MONO # 0.4 103/ul Normal 0.3-0.8 [facility] Comment on above: Performed By: #### C BC #### [facility] [address] [place] [address] Dr. Skylar Ramirez Monocytes/100 WBC (Bld) 5.5 % Normal 1.7-12.0 [facility] Comment on above: Performed By: #### C BC #### [facility] [address] [place] [address] Dr. Skylar Ramirez NEUT # 5.3 103/ul Normal 1.4-6.5 [facility] Comment on above: Performed By: #### C BC #### [facility] [address] [place] [address] Dr. Skylar Ramirez Neutrophils/100 WBC (Bld) 65.1 % Normal 43.0-75.0 [facility] Comment on above: Performed By: #### C BC #### [facility] [address] [place] [address] Dr. Skylar Ramirez Platelet mean volume (Bld) [Entitic vol] 9.8 fL Normal 9.5-13.5 [facility] Comment on above: Performed By: #### C BC #### [facility] [address] [place] [address] Dr. Skylar Ramirez PLT 316 103/ul Normal 150-450 [facility] Comment on above: Performed By: #### C BC #### [facility] [address] [place] [address] Dr. Skylar Ramirez RBC 4.29 106/ul Normal 4.20-5.40 [facility] Comment on above: Performed By: #### C BC #### [facility] [address] [place] [address] Dr. Skylar Ramirez WBC 8.1 103/ul Normal 4.0-11.0 [facility] Comment on above: Performed By: #### C BC #### [facility] [address] [place] [address] Dr. Skylar Ramirez DRUG SCREEN RAPID (URINE)on 07-09-2022 AMP Negative Normal NEGATIVE [facility] Comment on above: Performed By: #### E TH #### [facility] [address] [place] [address] Dr. Skylar Ramirez BAR Negative Normal NEGATIVE [facility] Comment on above: Performed By: #### E TH #### [facility] [address] [place] [address] Dr. Skylar Ramirez BUP Negative Normal NEGATIVE [facility] Comment on above: Performed By: #### E TH #### [facility] [address] [place] [address] Dr. Skylar Ramirez BZO Negative Normal NEGATIVE [facility] Comment on above: Performed By: #### E TH #### [facility] [address] [place] [address] Dr. Skylar Ramirez RICHIE Negative Normal NEGATIVE [facility] Comment on above: Performed By: #### E TH #### [facility] [address] [place] [address] Dr. Skylar Ramirez CUT-OFFS SEE BELOW Normal [facility] Comment on above: Result Comment: AMP [...] ng/mL Performed By: #### E TH #### [facility] [address] [place] [address] Dr. Skylar Ramirez DRUG CUT HEADER DRUG CLASS TEST SYST EM CUT-OFF CONCENTRATIONS ARE FOLLOWS: Normal [facility] Comment on above: Performed By: #### E #### [facility] [address] [place] [address] Dr. Skylar Ramirez mAMP Negative Normal NEGATIVE [facility] Comment on above: Performed By: #### E #### [facility] [address] [place] [address] Dr. Skylar Ramirez MTD Negative Normal NEGATIVE [facility] Comment on above: Performed By: #### E #### [facility] [address] [place] [address] Dr. Skylar Ramirez OPI Negative Normal NEGATIVE [facility] Comment on above: Performed By: #### E #### [facility] [address] [place] [address] Dr. Skylar Ramirez OXY Negative Normal NEGATIVE [facility] Comment on above: Performed By: #### E #### [facility] [address] [place] [address] Dr. Skylar Ramirez PCP Negative Normal NEGATIVE [facility] Comment on above: Performed By: #### E #### [facility] [address] [place] [address] Dr. Skylar Ramirez PPX Negative Normal NEGATIVE [facility] Comment on above: Performed By: #### E #### [facility] [address] [place] [address] Dr. Skylar Ramirez TCA Negative Normal NEGATIVE [facility] Comment on above: Performed By: #### E TH #### [facility] [address] [place] [address] Dr. Skylar Ramirez THC Positive Abnormal NEGATIVE [facility] Comment on above: Performed By: #### E TH #### [facility] [address] [place] [address] Dr. Skylar Ramirez ER URINE PROFILEon 3 Bilirubin Ql (U) Negative Normal NEGATIVE [facility] Comment on above: Performed By: #### D MARIBETH, ERUR #### [facility] [address] [place] [address] Dr. Skylar Ramirez Clarity (U) CLEAR Normal CLEAR [facility] Comment on above: Performed By: #### D MARIBETH, ERUR #### [facility] [address] [place] [address] Dr. Skylar Ramirez Color (U) LT. YELLOW Normal YELLOW [facility] Comment on above: Performed By: #### D MARIBETH, ERUR #### [facility] [address] [place] [address] Dr. Skylar DOUGHERTY A micrscopic examina tion will be performed if indicated. Normal [facility] Comment on above: Performed By: #### Jessica STAHL, ERUR #### [facility] [address] [place] [address] Dr. Skylar Ramirez Glucose Ql (U) Negative Normal NEGATIVE [facility] Comment on above: Performed By: #### D MARIBETH, ERUR #### [facility] [address] [place] [address] Dr. Skylar Ramirez Hemoglobin Ql (U) Negative Normal NEGATIVE [facility] Comment on above: Performed By: #### D MARIBETH, ERUR #### [facility] [address] [place] [address] Dr. Skylar Ramirez Ketones Ql (U) Negative Normal NEGATIVE [facility] Comment on above: Performed By: #### D RUGRPD, ERUR #### [facility] [address] [place] [address] Dr. Skylar Ramirez LEUKOCYTES Negative Normal NEGATIVE [facility] Comment on above: Performed By: #### D MARIBETH, ERUR #### [facility] [address] [place] [address] Dr. Skylar Ramirez Nitrite Ql (U) Negative Normal NEGATIVE [facility] Comment on above: Performed By: #### D MARIBETH, ERUR #### [facility] [address] [place] [address] Dr. Skylar Ramirez pH (U) 6.0 [pH] Normal 5-9 [facility] Comment on above: Performed By: #### D MARIBETH, ERUR #### [facility] [address] [place] [address] Dr. Skylar Ramirez SPEC GRAVITY <=1.005 Abnormal 1.005-<=1. 025 [facility] Comment on above: Performed By: #### D MARIBETH, ERUR #### [facility] [address] [place] [address] Dr. Skylar Ramirez UA PROTEIN Negative Normal NEGATIVE/ TRACE [facility] Comment on above: Performed By: #### D MARIBETH, ERUR #### [facility] [address] [place] [address] Dr. Skylar Ramirez UR MICRO IND NOT INDICATED Normal [facility] Comment on above: Performed By: #### D MARIBETH, ERUR #### [facility] [address] [place] [address] Dr. Skylar Ramirez Urobilinogen Qn (U) 0.2 {Evens'U}/dL Normal 0.2 - 1. 0 [facility] Comment on above: Performed By: #### D MARIBETH, ERUR #### [facility] [address] [place] [address] Dr. Skylar Ramirez ETHANOL (BLD ALC)on 07-10-19 ALC NOTE NOTE: 80 mg/dl is th e legal limit for a blood alcohol level Normal [facility] Comment on above: Performed By: #### E TH #### [facility] [address] [place] [address] Dr. Skylar Ramirez Ethanol [Mass/Vol] 90 mg/dL Normal [facility] Comment on above: Performed By: #### E TH #### [facility] [address] [place] [address] Dr. Skylar Ramirez ALC NOTE NOTE: 80 mg/dl is th e legal limit for a blood alcohol level Normal [facility] Comment on above: Performed By: #### E TH #### [facility] [address] [place] [address] Dr. Skylar Ramirez Ethanol [Mass/Vol] 116 mg/dL Normal [facility] Comment on above: Performed By: #### E TH #### [facility] [address] [place] [address] Dr. Skylar Ramirez PREG HCG QUALon 07-09-2022 , QUAL Negative Normal NEGATIVE [facility] Comment on above: Performed By: #### P REG #### [facility] [address] [place] [address] Dr. Skylar Ramirez PROF 14(COMP METB)on 023 Albumin [Mass/Vol] 4.4 g/dL Normal 3.4-5.0 [facility] Comment on above: Performed By: #### C SERINA GUPTA, ACET #### [facility] [address] [place] [address] Dr. Skylar Ramirez Albumin/Globulin [Mass ratio] 1.5 {ratio} Normal [facility] Comment on above: Performed By: #### C SERINA GUPTA, ACET #### [facility] [address] [place] [address] Dr. Skylar Ramirez ALP [Catalytic activity/Vol] 65 U/L Normal 46-116 [facility] Comment on above: Performed By: #### C SERINA GUPTA, ACET #### [facility] [address] [place] [address] Dr. Skylar Ramirez ALT [Catalytic activity/Vol] 16 U/L Normal 14-59 [facility] Comment on above: Performed By: #### C SERINA GUPTA, ACET #### [facility] [address] [address] [address] Skylar Ramirez Anion gap [Moles/Vol] 14.2 mmol/L Normal [facility] Comment on above: Performed By: #### C MP, SALYC, ACET #### [facility] [address] [address] [address] Skylar Ramirez AST [Catalytic activity/Vol] 14 U/L Critically low 15-37 [facility] Comment on above: Performed By: #### C MP, SALYC, ACET #### [facility] [address] [address] [address] Skylar Ramirez Bilirubin [Mass/Vol] 0.6 mg/dL Normal 0.2-1.0 [facility] Comment on above: Performed By: #### C MP, SALYC, ACET #### [facility] [address] [place] [address] Dr. Skylar Ramirez Calcium [Mass/Vol] 9.1 mg/dL Normal 8.5-10.1 [facility] Comment on above: Performed By: #### C MP, SALYC, ACET #### [facility] [address] [address] [address] Skylar Ramirez Chloride [Moles/Vol] 106 mmol/L Normal 98-107 [facility] Comment on above: Performed By: #### C MP, SALYC, ACET #### [facility] [address] [address] [address] Skylar Ramirez CO2 [Moles/Vol] 26.0 mmol/L Normal 21.0-32.0 [facility] Comment on above: Performed By: #### C MP, SALYC, ACET #### [facility] [address] [place] [address] Dr. Skylar Ramirez Creatinine [Mass/Vol] 0.78 mg/dL Normal 0.55-1.02 [facility] Comment on above: Performed By: #### C MP, SALYC, ACET #### [facility] [address] [address] [address] Skylar Ramirez EGFR-AF LATVIAN >60 Normal >=60 [facility] Comment on above: Performed By: #### C MP, SALYC, ACET #### [facility] [address] [place] [address] Dr. Skylar Ramirez EGFR-NON AF LATVIAN >60 Normal >=60 [facility] Comment on above: Performed By: #### C MP, SALYC, ACET #### [facility] [address] [place] [address] Dr. Skylar Ramirez Globulin (S) [Mass/Vol] 3.0 g/dL Normal [facility] Comment on above: Performed By: #### C MP SALYC, ACET #### [facility] [address] [place] [address] Dr. Skylar Ramirez Glucose [Mass/Vol] 129 mg/dL Critically high 74-106 [facility] Comment on above: Performed By: #### C CANDY SALYC, ACET #### [facility] [address] [place] [address] Dr. Skylar Ramirez Potassium [Moles/Vol] 3.2 mmol/L Critically low 3.5-5.1 [facility] Comment on above: Performed By: #### C CANDY SALYC, ACET #### [facility] [address] [place] [address] Dr. Skylar Ramirez Protein [Mass/Vol] 7.4 g/dL Normal 6.4-8.2 [facility] Comment on above: Performed By: #### C CANDY SALYC, ACET #### [facility] [address] [place] [address] Dr. Skylar Ramirez Sodium [Moles/Vol] 143 mmol/L Normal 136-145 [facility] Comment on above: Performed By: #### C CANDY SALYC, ACET #### [facility] [address] [place] [address] Dr. Skylar Ramirez Urea nitrogen [Mass/Vol] 6.0 mg/dL Critically low 6.4-19.3 [facility] Comment on above: Performed By: #### C CANDY, SALYC, ACET #### [facility] [address] [place], [place] [address] Dr. Skylar Ramirez Urea nitrogen/Creatinine [Mass ratio] 7.7 mg/mg Normal [facility] Comment on above: Performed By: #### C SERINA GUPTA ACET #### [facility] [address] [place], [place] [address] Dr. Skylar Ramirez SALICYLATEon 07-09-2022 SALICYLATE <2.8 Normal <=19.9 [facility] Comment on above: Performed By: #### C SERINA GUPTA ACET #### [facility] [address] [place], [place] [address] Dr. Skylar Ramirez XR HAND RT MIN [...] JJ SILVA Date: 2022-07-09 18:12 Normal [facility] MICRO OTHER TESTSOrdered By: Jose Clay [...] Detected (03/23/22 1:19 AM) Normal Not Detected [facility] Covid-19 PCR (CVDTBH)on 11-14 SARS-CoV-2 (COVID-19) RNA ANUP+probe Ql (Unsp spec) Detected Critically abnormal NOT DETECTED [facility] Comment on above: Result Comment: This test is not yet approved or cleared by the [place] FDA. When there are no FDA-approved or cleared tests available, and other criteria are met, FDA can make tests available under an emergency access mechanism called an Emergency Use Authorization (EUA). The EUA for this test is supported by the [place] of Health and Human Service's (HHS's) [...] used). Performed By: #### E TH #### [facility] [address] [place] [address] Dr. Skylar Ramirez Covid-19 PCR (CVDTBH)on SARS-CoV-2 (COVID-19) RNA ANUP+probe Ql (Unsp spec) Not detected Normal NOT DETECTED [facility] Comment on above: Result Comment: This test is not yet approved or cleared by the [place] FDA. When there are no FDA-approved or cleared tests available, and other criteria are met, FDA can make tests available under an emergency access mechanism called an Emergency Use Authorization (EUA). The EUA for this test is supported by the [place] of Health and Human Service's (HHS's) [...] SARS-CoV-2. Performed By: #### C VDTB #### [facility] [address] [place] [address] Dr. Skylar Ramirez CBC AUTO DIFFon 08-17-2021 BASO # 0.1 103/ul Normal 0.0-0.1 [facility] Comment on above: Performed By: #### E TH #### [facility] [address] [place] [address] Dr. Skylar Ramirez Basophils/100 WBC (Bld) 0.6 % Normal 0.2-2.0 [facility] Comment on above: Performed By: #### E TH #### [facility] [address] [place] [address] Dr. Skylar Ramirez EO # 0.2 103/ul Normal 0.0-0.7 [facility] Comment on above: Performed By: #### E TH #### [facility] [address] [place] [address] Dr. Skylar Ramirez Eosinophils/100 WBC (Bld) 2.0 % Normal 0.9-7.0 [facility] Comment on above: Performed By: #### E TH #### [facility] [address] [place] [address] Dr. Skylar Ramirez Erythrocyte distribution width (RBC) [Ratio] 13.2 % Normal 11.0-15.0 [facility] Comment on above: Performed By: #### E TH #### [facility] [address] [place] [address] Dr. Skylar Ramirez Hematocrit (Bld) [Volume fraction] 38.4 % Normal 36.0-48.0 [facility] Comment on above: Performed By: #### E TH #### [facility] [address] [place] [address] Dr. Skylar Ramirez Hemoglobin (Bld) [Mass/Vol] 13.1 g/dL Normal 12.0-16.0 [facility] Comment on above: Performed By: #### E TH #### [facility] [address] [place] [address] Dr. Skylar Ramirez IG # 0.02 10e3/ul Normal 0.00-0.03 [facility] Comment on above: Performed By: #### E TH #### [facility] [address] [place] [address] Dr. Skylar Ramirez IG % 0.2 % Normal 0.0-0.5 [facility] Comment on above: Performed By: #### E TH #### [facility] [address] [place] [address] Dr. Skylar Ramirez LYMPH # 3.0 103/ul Normal 1.2-3.8 [facility] Comment on above: Performed By: #### E TH #### [facility] [address] [place] [address] Dr. Skylar Ramirez Lymphocytes/100 WBC (Bld) 31.8 % Normal 20.5-60.0 [facility] Comment on above: Performed By: #### E TH #### [facility] [address] [place] [address] Dr. Skylar Ramirez MANUAL DIFF REQ NO Normal [facility] Comment on above: Performed By: #### E TH #### [facility] [address] [place] [address] Dr. Skylar Ramirez MCH (RBC) [Entitic mass] 32.0 pg Normal 26.7-34.0 [facility] Comment on above: Performed By: #### E TH #### [facility] [address] [place] [address] Dr. Skylar Ramirez MCHC (RBC) [Mass/Vol] 34.1 g/dL Normal 29.9-35.2 [facility] Comment on above: Performed By: #### E TH #### [facility] [address] [place] [address] Dr. Skylar Ramirez MCV (RBC) [Entitic vol] 93.7 fL Normal 81.0-99.0 [facility] Comment on above: Performed By: #### E TH #### [facility] [address] [place] [address] Dr. Skylar Ramirez MONO # 0.7 103/ul Normal 0.3-0.8 [facility] Comment on above: Performed By: #### E #### [facility] [address] [place] [address] Dr. Skylar Ramirez Monocytes/100 WBC (Bld) 7.6 % Normal 1.7-12.0 [facility] Comment on above: Performed By: #### E #### [facility] [address] [place] [address] Dr. Skylar Ramirez NEUT # 5.4 103/ul Normal 1.4-6.5 [facility] Comment on above: Performed By: #### E #### [facility] [address] [place] [address] Dr. Skylar Ramirez Neutrophils/100 WBC (Bld) 57.8 % Normal 43.0-75.0 [facility] Comment on above: Performed By: #### E #### [facility] [address] [place] [address] Dr. Skylar Ramirez Platelet mean volume (Bld) [Entitic vol] 10.9 fL Normal 9.5-13.5 [facility] Comment on above: Performed By: #### E #### [facility] [address] [place] [address] Dr. Skylar Ramirez PLT 275 103/ul Normal 150-450 [facility] Comment on above: Performed By: #### E #### [facility] [address] [place] [address] Dr. Skylar Ramirez RBC 4.10 106/ul Critically low 4.20-5.[address] [facility] Comment on above: Performed By: #### E #### [facility] [address] [place] [address] Dr. Sklyar Ramirez WBC 9.3 103/ul Normal 4.0-11.0 [facility] Comment on above: Performed By: #### E #### [facility] [address] [place] [address] Dr. Skylar Ramirez FREE T3on 08-17-2021 FREE T3 2.08 pg/mlL Critically low 2.91-4.70 [facility] Comment on above: Performed By: #### E TH #### [facility] [address] [place] [address] Dr. Skylar Ramirez FREE T4on 08-17-2021 Free T4 [Mass/Vol] 0.93 ng/dL Normal 0.78-1.34 [facility] Comment on above: Performed By: #### E #### [facility] [address] [place] [address] Dr. Skylar Ramirez PROF 14(COMP METB)on 022 Albumin [Mass/Vol] 4.4 g/dL Normal 3.4-5.0 [facility] Comment on above: Performed By: #### E #### [facility] [address] [place] [address] Dr. Skylar Ramirez Albumin/Globulin [Mass ratio] 1.6 {ratio} Normal [facility] Comment on above: Performed By: #### E #### [facility] [address] [place] [address] Dr. Skylar Ramirez ALP [Catalytic activity/Vol] 45 U/L Critically low 46-116 [facility] Comment on above: Performed By: #### E #### [facility] [address] [place] [address] Dr. Skylar Ramirez ALT [Catalytic activity/Vol] 14 U/L Normal 14-59 [facility] Comment on above: Performed By: #### E #### [facility] [address] [place] [address] Dr. Skylar Ramirez Anion gap [Moles/Vol] 13.7 mmol/L Normal [facility] Comment on above: Performed By: #### E TH #### [facility] [address] [place] [address] Dr. Skylar Ramirez AST [Catalytic activity/Vol] 8 U/L Critically low 15-37 [facility] Comment on above: Performed By: #### E #### [facility] [address] [place], [place] [id number] Dr. Skylar Ramirez Bilirubin [Mass/Vol] 1.2 mg/dL Critically high 0.2-1.0 [facility] Comment on above: Performed By: #### E TH #### [facility] [address] [place] [address] Dr. Skylar Ramirez Calcium [Mass/Vol] 8.7 mg/dL Normal 8.5-10.1 [facility] Comment on above: Performed By: #### E TH #### [facility] [address] [place] [address] Dr. Skylar Ramirez Chloride [Moles/Vol] 104 mmol/L Normal 98-107 [facility] Comment on above: Performed By: #### E TH #### [facility] [address] [place] [address] Dr. Skylar Ramirez CO2 [Moles/Vol] 26.7 mmol/L Normal 21.0-32.0 [facility] Comment on above: Performed By: #### E TH #### [facility] [address] [place] [address] Dr. Skylar Ramirez Creatinine [Mass/Vol] 0.83 mg/dL Normal 0.55-1.02 [facility] Comment on above: Performed By: #### E TH #### [facility] [address] [place] [address] Dr. Skylar Ramirez EGFR-AF LATVIAN >60 Normal >=60 [facility] Comment on above: Performed By: #### E TH #### [facility] [address] [place] [address] Dr. Skylar Ramirez EGFR-NON AF LATVIAN >60 Normal >=60 [facility] Comment on above: Performed By: #### E TH #### [facility] [address] [place] [address] Dr. Skylar Ramirez Globulin (S) [Mass/Vol] 2.8 g/dL Normal [facility] Comment on above: Performed By: #### E TH #### [facility] [address] [place] [address] Dr. Skylar Ramirez Glucose [Mass/Vol] 111 mg/dL Critically high 74-106 [facility] Comment on above: Performed By: #### E TH #### [facility] [address] [place] [address] Dr. Skylar Ramirez Potassium [Moles/Vol] 3.4 mmol/L Critically low 3.5-5.1 [facility] Comment on above: Performed By: #### E TH #### [facility] [address] [place] [address] Dr. Skylar Ramirez Protein [Mass/Vol] 7.2 g/dL Normal 6.1-8.2 [facility] Comment on above: Performed By: #### E TH #### [facility] [address] [place] [address] Dr. Skylar Ramirez Sodium [Moles/Vol] 141 mmol/L Normal 136-145 [facility] Comment on above: Performed By: #### E TH #### [facility] [address] [place] [address] Dr. Skylar Ramirez Urea nitrogen [Mass/Vol] 10.0 mg/dL Normal 6.4-19.3 [facility] Comment on above: Performed By: #### E TH #### [facility] [address] [place] [address] Dr. Skylar Ramirez Urea nitrogen/Creatinine [Mass ratio] 12.0 mg/mg Normal [facility] Comment on above: Performed By: #### E TH #### [facility] [address] [place] [address] Dr. Skylar Ramirez TSHon 08-17-2021 TSH 0.755 uIU/mL Normal 0.430-3.75 0 [facility] Comment on above: Performed By: #### E TH #### [facility] [address] [place] [address] Dr. Skylar Ramirez TSH RANGE SEE BELOW Normal [facility] Comment on above: Result Comment: <0.3 4 UIU/ml HYPERTHYROID 0.34-5.60 UIU/ml EUTHYROID >5.60 UIU/ml HYPOTHYROID Performed By: #### E TH #### [facility] [address] [address] [address] Skylar Ramirez Vital Signs Date Time Vital Sign Value Performing Clinician Facility 12-03-2023 16:00-0400 Diastolic blood pressure 59 mm[Hg] PA-Mikhail Sandra Work Phone: [facility] 12-03-2023 16:00-0400 Heart rate 66 /min PA-C Aldair Sandra Work Phone: [facility] 12-03-2023 16:00-0400 Respiratory rate 18 /min PA-C Aldair Sandra Work Phone: [facility] 12-03-2023 16:00-0400 SaO2% (BldA) [Mass fraction] 100 % PA-C Aldair Sandra Work Phone: [facility] 12-03-2023 16:00-0400 Systolic blood pressure 108 mm[Hg] PA-C Aldair Sandra Work Phone: [facility] 12-03-2023 12:49-0400 Body height 162.56 cm PA-C Aldair Sandra Work Phone: [facility] 12-03-2023 12:49-0400 Body temperature 98 [degF] PA-C Aldair Sandra Work Phone: [facility] 12-03-2023 12:49-0400 Body weight 83.46 kg PA-C Aldair Sandra Work Phone: [facility] 09-30-2023 22:58-0400 Diastolic blood pressure 73 mm[Hg] ALLI CINDI [facility] 09-30-2023 22:58-0400 Heart rate 75 /min ALLI CINDI [facility] 09-30-2023 22:58-0400 Mean blood pressure 83 mm[Hg] ALLI CINDI [facility] 09-30-2023 22:58-0400 Respiratory rate 18 /min ALLI CINDI [facility] 09-30-2023 22:58-0400 SaO2% (BldA) [Mass fraction] 99 % ALLI CINDI [facility] 09-30-2023 22:58-0400 Systolic blood pressure 102 mm[Hg] ALLI CINDI [facility] 09-30-2023 21:50-0400 Diastolic blood pressure 73 mm[Hg] ALLI CINDI [facility] 09-30-2023 21:50-0400 Heart rate 82 /min ALLI CINDI [facility] 09-30-2023 21:50-0400 Mean blood pressure 83 mm[Hg] ALLI CINDI [facility] 09-30-2023 21:50-0400 Respiratory rate 18 /min ALLI CINDI [facility] 09-30-2023 21:50-0400 SaO2% (BldA) [Mass fraction] 97 % ALLI CINDI [facility] 09-30-2023 21:50-0400 Systolic blood pressure 104 mm[Hg] ALLI CINDI [facility] 09-30-2023 20:53-0400 Diastolic blood pressure 83 mm[Hg] ALLI CINDI [facility] 09-30-2023 20:53-0400 Heart rate 85 /min ALLI CINDI [facility] 09-30-2023 20:53-0400 Mean blood pressure 90 mm[Hg] ALLI CINDI [facility] 09-30-2023 20:53-0400 Respiratory rate 18 /min ALLI CINDI [facility] 09-30-2023 20:53-0400 SaO2% (BldA) [Mass fraction] 98 % ALLIBrenda MACK [facility] 09-30-2023 20:53-0400 Systolic blood pressure 105 mm[Hg] ALLI CINDI [facility] 09-30-2023 19:41-0400 Body temperature 98.42 [degF] ALLI CINDI [facility] 09-30-2023 19:41-0400 Heart rate 88 /min ALLI CINDI [facility] 08-27-2023 09:30-0400 Heart rate 63 /min Edi Ishmael [facility] 08-27-2023 09:30-0400 Respiratory rate 16 /min Edi Quiñones [facility] 08-27-2023 09:30-0400 SaO2% (BldA) [Mass fraction] 100 % Edi Ishmael [facility] 08-27-2023 09:00-0400 Diastolic blood pressure 53 mm[Hg] Edi Ishmael [facility] 08-27-2023 09:00-0400 Heart rate 58 /min Edi Ishmael [facility] 08-27-2023 09:00-0400 Mean blood pressure 74 mm[Hg] Edi Ishmael [facility] 08-27-2023 09:00-0400 SaO2% (BldA) [Mass fraction] 98 % Edi Ishmael [facility] 08-27-2023 09:00-0400 Systolic blood pressure 115 mm[Hg] Edi Ishmael [facility] 08-27-2023 08:00-0400 Diastolic blood pressure 68 mm[Hg] Edi Ishmael [facility] 08-27-2023 08:00-0400 Heart rate 70 /min Edi Ishmael [facility] 08-27-2023 08:00-0400 Mean blood pressure 86 mm[Hg] Edi Ishmael [facility] 08-27-2023 08:00-0400 Systolic blood pressure 122 mm[Hg] Edi Ishmael [facility] 08-27-2023 07:30-0400 Diastolic blood pressure 66 mm[Hg] Edi Ishmael [facility] 08-27-2023 07:30-0400 Mean blood pressure 84 mm[Hg] Edi Ishmael [facility] 08-27-2023 07:30-0400 Systolic blood pressure 120 mm[Hg] Edi Ishmael [facility] 08-27-2023 06:54-0400 Body temperature 98.42 [degF] Edi Ishmael [facility] 08-27-2023 06:54-0400 Heart rate 71 /min Edi Ishmael [facility] 08-27-2023 06:54-0400 Respiratory rate 18 /min Edi Ishmael [facility] 08-15-2023 10:16-0400 Body temperature 98.24 [degF] Refugio Barriga [facility] 08-15-2023 10:16-0400 Diastolic blood pressure 72 mm[Hg] Refugio Barriga [facility] 08-15-2023 10:16-0400 Heart rate 88 /min Refugio Barriga [facility] 08-15-2023 10:16-0400 Systolic blood pressure 107 mm[Hg] Refugio Barriga [facility] 08-11-2023 03:34-0400 Diastolic blood pressure 60 mm[Hg] Jessi Avina MD [facility] 08-11-2023 03:34-0400 Heart rate 90 /min Jessi Avina MD Work Phone: [facility] 08-11-2023 03:34-0400 Respiratory rate 18 /min Jessi Avina MD Work Phone: [facility] 08-11-2023 03:34-0400 SaO2% (BldA) [Mass fraction] 100 % [facility] 08-11-2023 03:34-0400 Systolic blood pressure 123 mm[Hg] Jessi [facility]ina [facility] 08-10-2023 21:17-0400 Body temperature 99 [degF] Jessi Avina MD Work Phone: [employer] 08-03-2023 21:54-0400 Body temperature 97.9 [degF] DO Kim Slack Work Phone: [facility] 08-03-2023 21:54-0400 Diastolic blood pressure 64 mm[Hg] DO Kim Slack Work Phone: [facility] 08-03-2023 21:54-0400 Heart rate 72 /min DO Kim Slack Work Phone: [facility] 08-03-2023 21:54-0400 Respiratory rate 18 /min DO Kim Slack Work Phone: [facility] 08-03-2023 21:54-0400 SaO2% (BldA) [Mass fraction] 100 % DO Kim Slack Work Phone: [facility] 08-03-2023 21:54-0400 Systolic blood pressure 114 mm[Hg] DO Kim Schwartz Work Phone: [facility] 08-03-2023 20:12-0400 Body height 165.1 cm DO Kim Schwartz Work Phone: [facility] 08-03-2023 20:12-0400 Body weight 93.7 kg DO Kim Schwartz Work Phone: [facility] 07-12-2022 07:30-0400 Body temperature 97.7 [degF] MD Brionna See Work Phone: [facility] 07-12-2022 07:30-0400 Diastolic blood pressure 67 mm[Hg] MD Brionna See Work Phone: [facility] 07-12-2022 07:30-0400 Heart rate 63 /min MD Brionna See Work Phone: [facility] 07-12-2022 07:30-0400 SaO2% (BldA) [Mass fraction] 98 % MD Brionna See Work Phone: [facility] 07-12-2022 07:30-0400 Systolic blood pressure 119 mm[Hg] MD Brionna See Work Phone: [facility] 07-11-2022 20:12-0400 Respiratory rate 16 /min MD Brionna See Work Phone: [facility] 07-11-2022 15:25-0400 Body height 162.56 cm MD Brionna See Work Phone: [facility] 07-10-2022 09:00-0400 Body weight 80.28 kg MD Brionna See Work Phone: [facility] 04-11-2022 12:01-0500 Body temperature 98.42 [degF] Nevaeh Leahy [facility] 04-11-2022 12:01-0500 bodymassindex 1.18 Nevaeh Leahy [facility] Comment on above: Result Comment: ^~:!ZSAisleBuyer [facility] 04-11-2022 12:01-0500 Diastolic blood pressure 87 mm[Hg] Nevaeh Leahy [facility] 04-11-2022 12:01-0500 Heart rate 90 /min Nevaeh Leahy [facility] 04-11-2022 12:01-0500 Height/Length Percentile 76.91 Nevaeh Leahy [facility] Comment on above: Result Comment: ^~:!Percentile Source -[facility] 04-11-2022 12:01-0500 Height/Length Z-Score 0.74 Nevaeh Leahy [facility] Comment on above: Result Comment: ^~:!twidox [facility] 04-11-2022 12:01-0500 Respiratory rate 20 /min Nevaeh Leahy [facility] 04-11-2022 12:01-0500 SaO2% (BldA) [Mass fraction] 100 % Nevaeh Leahy [facility] 04-11-2022 12:01-0500 Systolic blood pressure 137 mm[Hg] Nevaeh Leahy [facility] 04-11-2022 12:01-0500 weight 1.38 Nevaeh Leahy [facility] Comment on above: Result Comment: ^~:!ZSAisleBuyer [facility] 04-11-2022 12:01-0500 Weight Percentile 91.69 % Nevaeh Leahy [facility] Comment on above: Result Comment: ^~:!Percentile Source -[facility] 03-23-2022 01:05-0500 Body temperature 98.06 [degF] Dino Mccollum [facility] 03-23-2022 01:05-0500 bodymassindex 1.47 Kaylinn Dokken [facility] Comment on above: Result Comment: ^~:!Ana [facility] 03-23-2022 01:05-0500 Diastolic blood pressure 79 mm[Hg] Kaylinn Dokken [facility] 03-23-2022 01:05-0500 Heart rate 83 /min Sujeyylinn Dokken [facility] 03-23-2022 01:05-0500 Height/Length Percentile 42.45 Kaylinn Dokken [facility] Comment on above: Result Comment: ^~:!Percentile Source -[facility] 03-23-2022 01:05-0500 Height/Length Z-Score -0.19 Kaylinn Dokken [facility] Comment on above: Result Comment: [facility] 01:05-0500 Respiratory rate 16 /min Sujeyylinn Dokken [facility] 03-23-2022 01:05-0500 SaO2% (BldA) [Mass fraction] 99 % Sujeyylinn Dokken [facility] 03-23-2022 01:05-0500 Systolic blood pressure 117 mm[Hg] Sujeyylinn Dokken [facility] 03-23-2022 01:05-0500 weight 1.42 Kaylinn Dokken [facility] Comment on above: Result Comment: ^~:!Ana [facility] 03-23-2022 01:05-0500 Weight Percentile 92.21 % Kaylinn Dokken [facility] Comment on above: Result Comment: ^~:!Percentile Source -C DC Encounters Encounter Date Encounter Type Care Provider Facility Start: 06-20-2024 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 ALLIBrenda MACK Fa cility:[facility] Start: 12-24-2023 End: 12-24-2023 ambulatory ROCAEL MACK Facility: [facility] Start: 12-03-2023 End: 12-03-2023 Emergency department patient visit CHRIS Sandra Work Phone: [facility] Work Phone: Start: 09-30-2023 End: 09-30-2023 Emergency department patient visit DO Rmtorito Leah Chun [facility] Start: 09-17-2023 End: 09-17-2023 ambulatory MOTAPRAWIRA Not Available Start: 09-13-2023 End: 09-13-2023 ambulatory BAIRON J NATAPRAWIRA Not Available Start: 08-29-2023 End: 08-29-2023 ambulatory [facility] ALLI MACK Facility:[facility] Merari gaitanue Start: 08-27-2023 End: 08-27-2023 Emergency department patient visit Edi Quiñones [facility] Start: 08-15-2023 End: 08-15-2023 ambulatory Jewell Driver Facility[facility] Start: 08-15-2023 End: 08-15-2023 Patient encounter procedure Refugio Barriga [facility] Start: 08-14-2023 Telephone encounter Ashley Dietz [facility] Acute [facility] Surgery Start: 08-13-2023 End: 08-13-2023 ambulatory ROCAEL MACK Facility:[facility] Start: 08-11-2023 End: 08-11-2023 Emergency department patient visit UNKNOWN PROVIDER Facility:[facility] Start: 08-11-2023 End: 08-11-2023 Emergency department patient visit Jessi Avina MD Work Phone: [facility] Comment on above: Abdominal pain (Pt h ad abd sx 1 week ago and states she is now having sharp pains near the site with lots of swelling and some redness. Pt had sx here. ) Start: 08-09-2023 ambulatory Iona mireles Cheyanne Comment on above: Post-op Symptoms Start: 08-09-2023 End: 08-09-2023 Emergency department patient visit DO Kim Schwartz Work Phone: [facility] Work Phone: Start: 08-04-2023 E.D. Visit Martyfede Yosvany [facility] Social Work Comment on above: Trauma/complex Medic al Situation Start: 08-04-2023 End: 08-08-2023 Evaluation and management of inpatient STARR CASEYALEX Facility:[facility] Start: 08-04-2023 End: 08-04-2023 ambulatory UNKNOWN PROVIDER Facility:[facility] Start: 08-03-2023 End: 08-03-2023 Emergency department patient visit DO Kim Schwartz Work Phone: [facility] Work Phone: Start: 06-20-2023 End: 06-20-2023 ambulatory ROCAEL HERZOGY Leah MACK Facility:[facility] Start: 05-23-2023 End: 05-23-2023 ambulatory ROCAEL HERZOGY A CINDI Facility:[facility] Start: 05-18-2023 ambulatory Edi Quiñones Facility:[facility] Start: 08-03-2022 End: 08-11-2022 Pre-admission assessment Dunia Cristina [facility] Start: 07-20-2022 End: 07-20-2022 Patient encounter procedure Dunia Cristina [facility] Start: 07-19-2022 End: 07-19-2022 Lab Drop off Dunia Cristina [facility] Start: 07-09-2022 End: 07-12-2022 Evaluation and management of inpatient MD Brionna See Work Phone: [facility] Work Phone: Start: 07-09-2022 End: 07-10-[address] BRIONNA SEE . Facility:[facility] Start: 04-11-2022 End: 04-11-2022 Emergency department patient visit Nevaeh Leahy [facility] Start: 03-23-2022 End: 03-23-2022 Emergency department patient visit Dino Mccollum [facility] Start: 02-28-2022 End: 02-28-2022 ambulatory Jack Khan Other [facility] Other Start: 02-28-2022 [facility] visit new patient Jack Khan [facility] Start: 02-24-2022 End: 02-24-[address] BRIONNA SEE . Facility:[facility] Start: 11-25-2021 End: 11-25-[address] BRIONNA SEE . Facility:[facility] Start: 11-22-2021 End: 11-22-[address] BRIONNA SEE . Facility:[facility] Start: 09-09-2021 End: 09-10-[address] BRIONNA SEE . Facility:[facility] Start: 08-17-2021 End: 08-18-[address] BRIONNA SEE . Facility:[facility] Procedures Date Procedure Procedure Detail Performing Clinician Start: 12-03-2023 Computed tomography of abdomen and pelvis with contrast CHRIS Sandra Work Phone: Start: 08-11-2023 Ct abdomen & pelvis w/contrast material Jessi Avina MD Work Phone: Start: 08-11-2023 Assay of lactate Jessi Avina MD Work Phone: Start: 08-10-2023 Assay of lipase Jessi Avina MD Work Phone: Start: 08-10-2023 Hepatic function panel Jessi Avina MD Work Phone: Start: 08-03-2023 Computed tomography of abdomen and pelvis with contrast DO Kim Mireya Work Phone: Start: 08-03-2023 CT cervical spine wi thout contrast DO Kim Rutledgeever Work Phone: Start: 08-03-2023 CT of head without contrast DO Kim Mireya Work Phone: Start: 08-03-2023 CT of thorax with contrast DO Kim Schwartz Work Phone: Sigmoid colectomy Refugio [facility] Plan of Treatment Date Care Activity Detail Author Start: 2053 Shingles (RZV) Vacci ne (1 of 2) Shingles (RZV) Vaccine (1 of 2) [facility] Start: 02-13-2026 Tetanus vaccination Tetanus (T d or Tdap) Booster [facility] Start: 12-03-2023 Bacteria identified in Urine by Culture [facility] Start: 12-03-2023 [facility] Start: 08-03-2023 [facility] Start: 07-12-2022 [facility] Start: 07-09-2022 Referral to Imaging System Administrator [facility] Start: 07-09-2022 Sleep disorder assessment [facility] Start: 07-09-2022 Hospital admission [facility] Start: 2022 Hepatitis A (HAV) Vaccine (optional start 19+ years) Hepatitis A (HAV) Vaccine (optional start 19+ years) [facility] Start: 2021 Hepatitis C screening Hepatitis C An tibody [facility] Start: 2021 Screening for Chlamy claudio trachomatis STI Screening (Age 18-24) [facility] Start: 2021 Tetanus + diphtheria + acellular pertussis vaccine (product) Tdap Booster [facility] Start: 2019 Meningococcal B (Bexsero,OMV) Vaccine (Optional,16-23 years) Meningococcal B (Bexsero,OMV) Vaccine (Optional,16-23 years) [facility] Start: 2014 Vaccination for marzena n papillomavirus HPV Vaccine (1 - 2-dose series) [facility] Start: 02-13-2005 Hepatitis B vaccination Hepati tis B (HBV) Vaccine (2 of 3 - 3-dose series) [facility] Start: 2003 COVID-19 Vaccine (#1) COVID-19 Vacci ne (#1) [facility] Start: 2003 Hepatitis B vaccination Hepati tis B (HBV) Vaccine (1 of 3 - 3-dose series) [facility] CT Abdomen and Pelvi s W contrast IV CT ABD/PELVIS ED I/V ARIA W/ CONTRAST Imaging STAT 08/11/2023 2:38 AM EDT [facility] fentaNYL [Mass/volum e] in Serum or Plasma [facility] Norfentanyl [Mass/volume] in Serum or Plasma [facility] Patient Education [facility] Work Phone: Patient referral [facility] Work Phone: End: 08-10-2023 Urnls dip stick/tablet rgnt auto w/o microscopy [facility] Work Phone: Comment on above: One time, now for 1 Occurrences starting 08/10/2023 until 08/10/2023 One time for 1 Occur rences starting 08/10/2023 until 08/10/2023 Immunizations Immunization Date Immunization Notes Care Provider Kilo gracia 05-23-2023 influenza, injectabl e, quadrivalent, preservative free Ashley Patelanthony [facility] 07-11-2022 influenza virus vacc ine, unspecified formulation Refugio Barriga [facility] 07-11-2022 influenza, injectabl e, quadrivalent, preservative free MD Brionna See Work Phone: [facility] 08-16-2016 HPV, unspecified formulation Refugio Barriga [facility] 08-16-2016 Human Papillomavirus 9-valent vaccine [facility] HPV, unspecified formulation [employer] [facility] 04-18-2016 Human Papillomavirus 9-valent vaccine [facility] 02-14-2016 HPV, unspecified formulation [employer] [facility] 02-14-2016 Human Papillomavirus 9-valent vaccine Ashley [facility] 02-14-2016 influenza virus vacc ine, unspecified formulation [employer] [facility] 02-14-2016 influenza, injectabl e, quadrivalent, preservative free [facility] 02-14-2016 meningococcal ACWY vaccine, unspecified formulation [employer] [facility] 02-14-2016 meningococcal oligosaccharide (groups A, C, Y and W-135) diphtheria toxoid conjugate vaccine (MCV4O) [facility] 02-14-2016 tetanus toxoid, redu kayla diphtheria toxoid, and acellular pertussis vaccine, adsorbed [facility] 02-17-2014 influenza virus vacc ine, unspecified formulation [employer] [facility] 03-15-2009 influenza virus vacc ine, H1N1, live [employer] [facility] 03-15-2009 novel Influenza-H1N1 -09, live virus for nasal administration [facility] 02-11-2009 influenza virus vacc ine, H1N1, live [employer] [facility] 02-11-2009 novel Influenza-H1N1 -09, live virus for nasal administration [facility] 08-14-2007 DTaP, unspecified formulation [employer] [facility] 08-14-2007 hepatitis A vaccine, unspecified formulation Refugio Renkoo [facility] 08-14-2007 hepatitis B vaccine, pediatric or pediatric/adolescent dosage Refugio Renkoo [facility] 08-14-2007 measles, mumps and rubella virus vaccine Refugio Renkoo [facility] 08-14-2007 varicella virus vaccine Will norman Barriga [facility] 01-09-2007 DTaP, unspecified formulation [employer] [facility] 12-04-2006 DTaP, unspecified formulation [employer] [facility] 12-04-2006 hepatitis A vaccine, unspecified formulation [employer] [facility] 12-04-2006 hepatitis B vaccine, pediatric or pediatric/adolescent dosage [employer] [facility] 12-04-2006 poliovirus vaccine, unspecified formulation Refugio Renkoo [facility]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
--- NOTE | 2024-01-19 23:24 | ED_ITS ---
HPI - Nausea/Vomiting/Diarrhea General Chief complaint: Nausea/Vomiting/Diarrhea Stated complaint: vomiting Time Seen by Provider: 01/19/24 23:20 Source: patient Mode of arrival: walk-in Limitations: no limitations History of Present Illness HPI Narrative: patient is about 7 weeks . First . Has not been to [facility] yet. presents with recurrent vomiting. States she has zofran at home but it is not working. No abdominal pain or diarrhea Related Data Home Medications ?Medication ?Instructions ?Recorded ?Confirmed escitalopram oxalate 10 mg tablet 20 mg PO DAILY 01/18/23 01/19/24 trazodone 50 mg tablet 50 mg PO BEDTIME 06/17/23 01/19/24 docusate sodium 100 mg capsule 100 mg PO DAILY 08/09/23 01/19/24 Allergies Allergy/AdvReac Type Severity Reaction Status Date / Time No Known Drug Allergies Allergy Verified 01/19/24 23:11 Review of Systems ROS Status of ROS 10 or more systems reviewed and unremark able except as noted in history and below [facility] Medical History (Updated 01/20/24 @ 00:28 by Amadeo Graham MD) Colon perforation ?K63.1 - Perforation of intestine (nontraumatic) (ICD-10) Social History Smoking status: Current every day smoker Little interest or pleasure in doing things: not at all Feeling down, depressed, or hopeless: not at all Exam Constitutional Vital Signs, click to edit/add: Last Vital Signs Temp 98 F 01/19/24 23:07 Pulse 90 01/19/24 23:07 Resp 18 01/19/24 23:07 BP 130/78 01/19/24 23:07 Pulse Ox 98 01/19/24 23:07 O2 Del Method Room Air 01/19/24 23:07 Common normals: no apparent distress, average body habitus, oriented x3, no limitations, healthy appearing, alert and well nourished [place] Common normals: normocephalic and head/scalp atraumatic Eye Common normals: EOMs intact bilaterally and conjunctivae normal Respiratory Common normals: normal respiratory effort, no retractions, no use of accessory m uscles and clear to auscultation bilaterally Cardio Common normals: regular rate, regular rhythm, S1 normal heart sound and S2 normal heart sound GI Common normals: Normal to inspection, nondistended, normoactive bowel sounds present, soft to palpation and non-tender Extremity Common normals: normal to inspection and full ROM Neuro Common normals: oriented x3, CN's II-XII intact bilaterally, moves all extremities and no focal motor deficits Psych Appearance: grossly normal Course Vital Signs Vital signs: Vital Signs Temperature 98 F 01/19/24 23:07 Pulse Rate 90 01/19/24 23:07 Respiratory Rate 18 01/19/24 23:07 Blood Pressure 130/78 01/19/24 23:07 Pulse Oximetry 98 01/19/24 23:07 Oxygen Delivery Method Room Air 01/19/24 23:07 Temperature 98 F 01/19/24 23:07 Pulse Rate 90 01/19/24 23:07 Respiratory Rate 18 01/19/24 23:07 Blood Pressure 130/78 01/19/24 23:07 Pulse Oximetry 98 01/19/24 23:07 Oxygen Delivery Method Room Air 01/19/24 23:07 MDM - Nausea/Vomiting/Diarrhea MDM Narrative Medical decision making narrative: patient presents with hyperemesis of . Has not had much success controlling vomiting with zofran. Hydrated in the department and nausea controlled with phenergan. Feeling better and discharged home with prescription for phenergan Lab Data Labs: Lab Results 01/19/24 01/19/24 Range/Units 23:17 23:47 WBC 11.6 H (4.0-11.0) 10^3/uL RBC 4.02 L (4.20-5.40) 10^6/uL Hgb 12.9 (12.0-16.0) g/dL Hct 36.6 (36.0-48.0) % MCV 91.0 (81.0-99.0) fL MCH 32.1 (26.7-34.0) pg MCHC 35.2 (29.9-35.2) g/dL RDW 12.9 (11.0-15.0) % Plt Count 302 (150-450) 10^3/uL MPV 11.1 (9.5-13.5) fL Neut % (Auto) 68.9 (43.0-75.0) % Lymph % (Auto) 23.7 (20.5-60.0) % [place] % (Auto) 6.0 (1.7-12.0) % Eos % (Auto) 0.9 (0.9-7.0) % Baso % (Auto) 0.3 (0.2-2.0) % Neut # (Auto) 8.0 H (1.4-6.5) 10^3/uL Lymph # (Auto) 2.7 (1.2-3.8) 10^3/uL [place] # (Auto) 0.7 (0.3-0.8) 10^3/uL Eos # (Auto) 0.1 (0.0-0.7) 10^3/uL Baso # (Auto) 0.0 (0.0-0.1) 10^3/uL Abs Immat Gran (auto) 0.02 (0.00-0.03) 10^3/uL Imm/Tot Granulo (auto) 0.2 (0.0-0.5) % Sodium 134 L (136-145) mmol/L Potassium 3.9 (3.5-5.1) mmol/L Chloride 101 (98-107) mmol/L Carbon Dioxide 21.8 (21.0-32.0) mmol/L Anion Gap 15.1 BUN 8.0 (7.0-18.0) mg/dL Creatinine 0.69 (0.55-1.02) mg/dL Est GFR ( Amer) >60 (>=60 mL/min/1.73m^2) Est GFR (Non-Af Amer) >60 (>=60 mL/min/1.73m^2) BUN/Creatinine Ratio 11.6 Glucose 98 (74-106) mg/dL Calcium 9.6 (8.5-10.1) mg/dL Total Bilirubin 1.6 H (0.2-1.0) mg/dL AST <5 L (15-37) U/L ALT 10 L (14-59) U/L Alkaline Phosphatase 46 (46-116) U/L Total Protein 7.1 (6.4-8.2) g/dL Albumin 4.1 (3.4-5.0) g/dL Globulin 3.0 g/dL Albumin/Globulin Ratio 1.4 Urine Color Dk yellow (YELLOW) Urine Clarity Clear (CLEAR) Urine pH 6.0 (5.0-9.0) Ur Specific [place] >=1.030 A (1.005-1.025) Urine Protein Negative (NEG/TRACE) mg/dL Urine Glucose (UA) Negative (NEGATIVE) mg/dL Urine Ketones >=80 A (NEGATIVE) mg/dL Urine Occult Blood Negative (NEGATIVE) Urine Nitrite Negative (NEGATIVE) Urine Bilirubin Negative (NEGATIVE) Urine Urobilinogen 0.2 (0.2-1.0) EU/dL Ur Leukocyte Esterase Negative (NEGATIVE) Urine HCG, Qual Positive A (NEGATIVE) Discharge Plan Discharge Chief Complaint: Nausea/Vomiting/Diarrhea Clinical Impression: , Nausea and vomiting Patient Disposition: Home, Self-Care Prescriptions / Home Meds: No Action escitalopram oxalate 10 mg tablet 20 mg PO DAILY trazodone 50 mg tablet 50 mg PO BEDTIME docusate sodium 100 mg capsule 100 mg PO DAILY Print Language: Argentine Instructions: (ED), Acute Nausea and Vomiting (ED) Referrals: Physician,Non-Staff, MD [Primary Care Provider] - 1 week
[2024-01-19 23:36] LABS: Basophils Percent Auto 0.3 % (0.2-2.0); Eosinophils Absolute Auto 0.1 10^3/uL (0.0-0.7); Eosinophils Percent Auto 0.9 % (0.9-7.0); Hematocrit 36.6 % (36.0-48.0); Hemoglobin 12.9 g/dL (12.0-16.0); Immature Granulocytes Abs Auto 0.02 10^3/uL (0.00-0.03); Immature Granulocytes Pct Auto 0.2 % (0.0-0.5); Lymphocytes Absolute Auto 2.7 10^3/uL (1.2-3.8); Lymphocytes Percent Auto 23.7 % (20.5-60.0); Mean Corpuscular HGB Conc 35.2 g/dL (29.9-35.2); Mean Corpuscular Hemoglobin 32.1 pg (26.7-34.0); Mean Platelet Volume 11.1 fL (9.5-13.5); Monocytes Absolute Auto 0.7 10^3/uL (0.3-0.8); Neutrophils Percent Auto 68.9 % (43.0-75.0); Platelet Count 302 10^3/uL (150-450); Red Blood Count 4.02 10^6/uL (4.20-5.40); Red Cell Distribution Width 12.9 % (11.0-15.0); White Blood Count 11.6 10^3/uL (4.0-11.0)
[2024-01-19] MEDS: PROMETHAZINE HCL 25 MG in 0.9 % SODIUM CHLORIDE 50 ML 204 MG IV (23:44)
[2024-01-19] MEDS: 0.9 % SODIUM CHLORIDE 1,000 ML 999 ML IV (23:44)
[2024-01-19 23:47] LABS: Alanine Aminotransferase 10 U/L (14-59); Albumin Globulin Ratio 1.4; Albumin Level 4.1 g/dL (3.4-5.0); Alkaline Phosphatase 46 U/L (46-116); Anion Gap 15.1; Aspartate Amino Transferase <5 U/L (15-37); BUN Creatinine Ratio 11.6; Bilirubin Total 1.6 mg/dL (0.2-1.0); Calcium 9.6 mg/dL (8.5-10.1); Carbon Dioxide 21.8 mmol/L (21.0-32.0); Chloride 101 mmol/L (98-107); Estimated GFR (African America >60 (>=60 mL/min/1.73m^2); Estimated GFR (Non-African Ame >60 (>=60 mL/min/1.73m^2); Glucose 98 mg/dL (74-106); Potassium 3.9 mmol/L (3.5-5.1); Sodium 134 mmol/L (136-145); Total Protein 7.1 g/dL (6.4-8.2)
[2024-01-19 23:55] LABS: Bilirubin Urine NEGATIVE (NEGATIVE); Blood Urine NEGATIVE (NEGATIVE); Clarity Urine CLEAR (CLEAR); Glucose Urine UA NEGATIVE (NEGATIVE); Ketones Urine >=80 mg/dL (NEGATIVE); Leukocyte Esterase Urine NEGATIVE (NEGATIVE); Nitrite Urine NEGATIVE (NEGATIVE); Protein Urine NEGATIVE (NEG/TRACE); Specific Gravity Urine >=1.030 (1.005-1.025); Urobilinogen Urine 0.2 EU/dL (0.2-1.0)
[2024-01-19 23:59] LABS: Color Urine DK YELLOW (YELLOW); Urine Microscopic Indicated NO
[2024-01-20 00:05] LABS: HCG Qualitative Urine* POSITIVE (NEGATIVE); Internal Control Within Normal Limits
== END 2024-01-20 00:50 | disposition home or self-care (01) ==
PROVIDERS: Emergency Provider Internal Medicine
DX: O26.891 Other specified pregnancy related conditions, first trimester (principal); R11.2 Nausea with vomiting, unspecified; O99.331 Smoking (tobacco) complicating pregnancy, first trimester; F17.200 Nicotine dependence, unspecified, uncomplicated; Z3A.01 Less than 8 weeks gestation of pregnancy
CPT/HCPCS: 36415; 80053; 81003; 84703; 85025; 96374; 99285; J2250

== ENCOUNTER 2024-02-07 13:10 | Emergency (ER) | payer OTHER, SELFPAY ==
--- OUTSIDE RECORDS SUMMARY | 2024-02-07 13:42 | XMS_ITS | CCD ---
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 12-03-2023 Lipase [Catalytic activity/Vol] 14.0 U/L Normal 11.0-82.0 [facility] Comment on above: Result Comment: PERF ORMED BY: [place] [address] PATHOLOGIST JETTING MACHINE OPERATOR ROBERT PRADHAN M.D. Performed By: #### H EPATIC, LIPASE, CBC, BMP #### [facility] [address] [place] [address] Lymphocytes [#/volume] in Bl ood by Automated countOrdered By: Aldair Sandra on 12-03-2023 Lymphocytes (Bld) [#/Vol] 2.8 10*3/uL Normal 1.00-4.8 [facility] Comment on above: Performed By: #### H EPATIC, LIPASE, CBC, BMP #### [facility] [address] [place] [address] Lymphocytes/100 leukocytes i n Blood by Automated countOrdered By: Aldair Sandra on 12-03-2023 Lymphocytes/100 WBC (Bld) 20.0 % Normal . [facility] Comment on above: Performed By: #### H EPATIC, LIPASE, CBC, BMP #### [facility] [address] [place] [address] MCH [Entitic mass] by Automa boris countOrdered By: Aldair Sandra on 12-03-2023 MCH (RBC) [Entitic mass] 31.5 pg Normal 24.7-34.3 [facility] Comment on above: Performed By: #### H EPATIC, LIPASE, CBC, BMP #### [facility] [address] [place] [address] MCHC Auto (RBC) [Mass/Vol]Or dered By: Aldair Sandra on 12-03-2023 MCHC (RBC) [Mass/Vol] 34.1 g/dL 32.0-35.0 [facility] MCV [Entitic volume] by Auto mated countOrdered By: Aldair Sandra on 12-03-2023 MCV (RBC) [Entitic vol] 92.5 fL Normal 80-100 [facility] Comment on above: Performed By: #### H EPATIC, LIPASE, CBC, BMP #### [facility] [address] [place] [address] [place] Monocyte distribution width [Entitic volume] in Blood by AutomatedOrdered By: Aldair Sandra on 12-03-2023 Monocyte distribution width Auto (Bld) [Entitic vol] 18.17 % 0.00-20.00 [facility] Mucus LM Ql (Urine sed)Order ed By: Aldair Sandra on 12-03-2023 Mucus Ql (Urine sed) 3+ [LPF] Abnormal [facility] Neutrophils [#/volume] in Bl ood by Automated countOrdered By: Aldair Sandra on 12-03-2023 Neutrophils (Bld) [#/Vol] 10.0 10*3/uL High 1.8-7.7 [facility] Comment on above: Performed By: #### H EPATIC, LIPASE, CBC, BMP #### [facility] [address] [place] [id number] [facility] Nitrite Test strip Ql (U)Ord ered By: Aldair Sandra on 12-03-2023 Nitrite Ql (U) Negative Negative [facility] No Panel InformationOrdered By: Aldair Sandra on 12-03-2023 Estimated GFR (CKD-EPI) > 60.0 mL/Min [facility] Creatinine Clearance (Chem 121.80 [facility] Nucleated erythrocytes [Pres ence] in Blood by Automated countOrdered By: Aldair Sandra on 12-03-2023 Nucleated RBC Auto Ql (Bld) 0.1 /100{WBC} 0-0.5 [facility] Opiates [Presence] in Urine by Screen methodOrdered By: Aldair Sandra on 12-03-2023 Opiates Screen Ql (U) Negative Negative [facility] Phencyclidine Screen Ql (U)O rdered By: Aldair Sandra on 12-03-2023 Phencyclidine Ql (U) Negative Negative [facility] Platelet mean volume [Entiti c volume] in Blood by Automated countOrdered By: Aldair Sandra on 12-03-2023 Platelet mean volume (Bld) [Entitic vol] 10.4 fL Normal 6.3-10.7 [facility] Comment on above: Performed By: #### H EPATIC, LIPASE, CBC, BMP #### [facility] [address] Platelets [#/volume] in Bloo d by Automated countOrdered By: Aldair Sandra on 12-03-2023 Platelets (Bld) [#/Vol] 240 10*3/uL Normal 150-450 [facility] Comment on above: Performed By: #### H EPATIC, LIPASE, CBC, BMP #### [facility] [address] Potassium [Moles/volume] in Serum or PlasmaOrdered By: Aldair Sandra on 12-03-2023 Potassium [Moles/Vol] 3.5 mmol/L Normal 3.5-5.1 [facility] Comment on above: Performed By: #### H EPATIC, LIPASE, CBC, BMP #### [facility] [address] [place] [address] Protein [Mass/volume] in Ser um or PlasmaOrdered By: Aldair Sandra on 12-03-2023 Protein [Mass/Vol] 6.7 g/dL Normal 6.4-8.9 [facility] Comment on above: Performed By: #### H EPATIC, LIPASE, CBC, BMP #### [address] Protein [Mass/volume] in Uri ne by Test stripOrdered By: Aldair Sandra on 12-03-2023 Protein (U) [Mass/Vol] 30 mg/dL High Negative [facility] Comment on above: Order Comment: Name Collection Type:: Clean-Voided Midstream Performed By: #### A DDONUAPLUS, UHCG, CUU ####[facility] Serum globulin measurement b y calculation (mass/volume)Ordered By: Aldair Sandra on 12-03-2023 Globulin (S) [Mass/Vol] 2.4 g/dL Normal [facility] Comment on above: Performed By: #### H EPATIC, LIPASE, CBC, BMP #### [address] Serum or plasma albumin/glob ulin mass ratioOrdered By: Aldair Sandra on 12-03-2023 Albumin/Globulin [Mass ratio] 1.8 {ratio} Normal [facility] Comment on above: Performed By: #### H EPATIC, LIPASE, CBC, BMP #### [facility] [address] [place] [address] Serum or plasma anion gap de terminationOrdered By: Aldair Sandra on 12-03-2023 Anion gap [Moles/Vol] 15.1 mmol/L High 6.0-15.0 [facility] Comment on above: Performed By: #### H EPATIC, LIPASE, CBC, BMP #### [facility] [address] [place] [address] Serum or plasma non-glucuron idated bilirubin measurement (mass/volume)Ordered By: Aldair Sandra on 12-03-2023 Bilirubin.indirect [Mass/Vol] 0.7 mg/dL [facility] Sodium [Moles/volume] in Ser um or PlasmaOrdered By: Aldair Sandra on 12-03-2023 Sodium [Moles/Vol] 138 mmol/L Normal 136-145 [facility] Comment on above: Performed By: #### H EPATIC, LIPASE, CBC, BMP #### [address] Specific gravity Test strip (U) [Rel density]Ordered By: Aldair Sandra on 12-03-2023 Specific gravity (U) [Rel density] 1.034 High 1.001-1.03 0 [facility] Urea nitrogen [Mass/volume] in Serum or PlasmaOrdered By: Aldair Sandra on 12-03-2023 Urea nitrogen [Mass/Vol] 12 mg/dL Normal 7-25 [facility] Comment on above: Performed By: #### H EPATIC, LIPASE, CBC, BMP #### [address] Urine Cultureon 12-03-2023 Bacteria identified Cx Nom (U) 20,000 colonies/ml mixed bacterial skin contaminants 2 Days PERFORMED BY: [place] [address] PATHOLOGIST JETTING MACHINE OPERATOR ROBERT PRADHAN M.D. [place] [facility] Comment on above: Performed By: #### A HAMIDA AVILA, CUU ####[facility] [place] [id number] [facility] Urine appearanceOrdered By: Aldair Sandra on 12-03-2023 Appearance (U) Cloudy Critically abnormal Clear [facility] Comment on above: Order Comment: Name Collection Type:: Clean-Voided Midstream Performed By: #### A HAMIDA AVILA, CUU ####[place] [id number] [address] Urobilinogen Test strip (U) [Mass/Vol]Ordered By: Aldair Sandra on 12-03-2023 Urobilinogen (U) [Mass/Vol] 2 mg/dL High Normal [facility] pH of Urine by Test stripOrd ered By: Aldair Sandra on 12-03-2023 pH (U) 5.5 [pH] Normal 5.0-9.0 [facility] Comment on above: Order Comment: Name Collection Type:: Clean-Voided Midstream Performed By: #### A HAMIDA AVILA, U ####[place] [id number] Coding Summary.on 10-03-2023 Coding Summary. KCZFBwvz20QTx2gJl+PG hlYWQ+ FU0XXVVzS53wdAQypU0cQ5JVDK bGBbneWALCBYrTCvHnmuMkYT5l aXNjZXJu IC8+YN0sLDIzXqxfsZTln7K0xE O2L74gpa4iYYgxgSI9TNZkInHd lisbh0whwGi5EBucAnxxVnNk NTNyoL75GNW5tZ73Ec35kRNyyV Zoy6ucqVt2RfYlYAMtMOG0yEao DSiog1OhWYIiV09uyWRzx3O7 RVWkaKcejQEeEcAcwLI9zO7fFQ hhszjwt0ujkhraHkf6qk28bFNi z1O6bZD3X3BawuP3DJGbpFLq TfuniOJBrK4lqeyvs1xxamieWg RmYKKmYBv3CXh1XMOgsJhcGaSk KX81ZPE0HZEbksNfJ4MoWXRd sXrgLnN1w6X4Ki9WG2APBumfC1 VNTUFSWTwvdGQ+TA94ax42Q4Iz FadyKuc4AVJmOOU7rNE6dQ6z WSMjQDnrh7C3mON9L1NdesVydj 5sy9neZCPlWMapR15frRGqd9U9 MQMnrVC5WTGekTudHzXmlH44 Oyc+TTZmmKxaz1SiPariu4vdu7 mhpTo5UjjjLGLvfcOpkTniODR5 m8GbGp5wDEAuwEA7aJE5yH7s FjWtOlG1SOasK356LcTxoPHlWx zsL85yE7XrgCG+ATUsFwx2KJDt jZytIR5dE6RgIJQwetpxtCMc xRlsLY5lZXKpggdcBMVxhL5fMF CkX9o9CzPxJkS3YJikZ7ZqCZPm ghheQh35lK3cQqKlBoD2OZyw G7VcjrN5BBVpoRIxZOkdNDH7D6 2qt1I7KKHsIISeBKQ9jQM6qZ2u bGlnbjogbGVmdDsgdmVydGlj PPqxFGdrE865PDEeeXoaQxIuQE luZyBEYXRlOiAgMDYvMTkvMjAy NDwvdGQ+PROpPRW3rZsvYOEc tYSxJPbfYa7scXkyiQudGX9rPD OvbgpjQZXhyB6iULPifZUseQzv RR8yIGSvpiobg871VmPnXAE2 RIJnxYTwQ5YgiF5mOqFgLHRhHI VvO2ItfABgBGgcH100WJlhUhU3 UVHbqjFrZ7EfQHRyeSfxAkX0 o5H4Mj8Ua9YwpjgkR4JznEVpXh XdBguqQLm9D7DbRpujiOV+PC90 FAQkCJ66IIa7ZRF2pHsdICjm GRBdF3CdmR5sFmRlORTyIUUtXm c+PHRhYmxlIHdpZHRoPScxMDAl ZhCliCuhNA3mCm3vJNVgIWLs tJydpWJkKgUkd9smQTUpHDejFM 6yjDvaC8BeiIU1OYXmw1c2Je26 Y07pN5XyqTR+RVPgbUW5wTF4 oL4uEuWqLjR5ZDajQ444ZrBzoT XmCtvvc0aqc9sdiFi4PyO5GUIo zjVfhPozOMK8u6HzPa81S97j IHdpZHRoPSIxNSUiIHZhbGlnbj 1pwY0dJk1+NULmrDD3tET1xZ4u JyKqJlW4HVbbM723HuIltCFf Adgnd7yha0acbWn1XmBsYWLxci VszYveFYY5u5OsYr01K6BsqRif g5DgLgn0ap93rOJio6R8pOC0 Q1MtSQXdynptiZAevGtlLO5xHA UxhhmqMXRflQ7pNSUhV1h3VnWr CkB6RBgsM8WyqdO0AWCzwVTb UIJpaRFLoN6lvfkid0zcmvuzQk ZrYIHhZBp1FNo2MYNjpHfwIgSg SIU7XiN3CDR3gKCjfU7xgBgw zlbdbS9zEbp+KXM0fUUuiVDSCK 1lOjwvdGQ+KVEuXKB6kKdzKLgk RNCekG9eVKCbQ9y2JmRkLiD6 OVvuS6ZhhzS4CYFjyXWgJYSleZ CFuG1txujgj0ybrtrtYgYwITQz YIf0IGj7PSYfxAwbUtCxTRJ9 YjH4KDI9iLQaoE6bbZwlrbfwaE 9wOyc+DmngwSqvXUV6PZu3G8Of Pom2YUFduBifLI7ipYGbWFsg Jm3xyAmwhWqcEO2tRJUliqktt9 24PoOhy4puWAZepDJeAXbkDUC9 X82ri4P1WVGdDXBmYJT2aDC7 fA9oqLbtgybcfZOkpUyikjBmqJ gzZCkdVLicX041MUMxgFytHzAd XZw3H8JlPgh4NDKpwLeaQI5q pCGdPSohSk7zcLmyxNbmSE0lXT Umswtxl936KmZea1dbOVLplGWd TVvzZRN4H10ra5Z9LMQnWMUd ALT8qQW6bQ1gdYwqaviakINewC relpRduSchMVusQMvfB130XLVk rNjjJvSuaMb9M4FiJkb6LFLm dIubII0qqGCdDEmzCc0tiYvmvS qlSY0hWOUrerpmr025UoEli6yk SJYcmDZrVBkqBDV7Z53xq1O2 BRGeEPVgEXE7hUQ4mE3zhGcyzb ogbGVmdDsgdmVydGljYWwtYWxp N806AKVuaZivLpCanKulndVu QXsdINh3F5UjJjtuuYG+PC90YW IiWT92hMLtyBYjj7lfyGn6EyCg MCIqPRD7fMwiBJrzn4WqIYRp C28qkENce6P0GXKisBtyhQZkFg LvqOJ4tZ5sNUtrufehg9xqpztj Hsitx1gfpp26sZ83D05mYJdy DRWnUFHhQKSdFMIwzIwkle1gxB 9wIi8+XFMguUD9wZW5tB6vGLMh KqH0GEjqF505YmKvkPFzXwws b0cxt7dciAt4YrL4DNZzvwFsjW qhCOB9j8OgRz60R24nFXtsIXBx NZZzJEQxGGTijIhqem0egQ6f Ii8+BKVecEF7sEH2zZ9yNjPjZh U7QOeyD057BmPjqKDnTebcN77r F7AokCF+EGHaKqy0DCDawZof SD5epTAtWRmwVr7aSXX4ItLjVc LzSLxxJ7JsILPrvdpjkghlqUB4 UOIbBRNoyK19Gl4qrVjeSLXg dRDGeA4srsfxi2dpooqyVjDaSD OvVLa3FWe7TLFepPlzVnMrCSJ9 GzX7ZSP4wLBekZ8ryMjsdkif lJ2yY6JzLYByvkspJr76aT9nGd WsEnH9IPuuIqa+G6aYJ79YZTFT NGqWMMFJLZ89NS30dUSfd5B6 gYK8F1SmQYGiidigpcdwdWB3TF VqMSXptX30xRXbVXcrNs3um4V1 r430HOIuPYOdvK59Yu4tkHlg MBDqpYSGnF0ljdwbd2vfphivUo GhWNVrTMt4ZJp8JCCvfTfuPuEq JCP9IcB9ETU7tCQbgG6jjPgv agcygT5iLaz+MDIvMjYvMjAwND wvdGQ+FAOwMAR4bWqyCYfrMPLn pP4bDOHeG6y4QuNvRqB1GOlt J3UdCYNtxxsmHe69mA3uAoCxWb S5IFdbE2UumqR8EEDgfAGqVQfb TNH7M29tw8P0GRYpEWXaUUZ9 gJY6vZ0gvRhovqnytDWtwXsihk TzyZecVMiwVJtsO189NPDbvSfc YmAvFPibACYbJK59OU38oVDi v8Y9nSU1E3RaGFGinhdmhdfjrR E8TWTaMDWwhM14iDAgJYxnOy0o s9Q9f187DULuOHUumT21Tx8b fLhvPSUpvPLUdY6udkmeo3poif ezDvImIHYeZQh1YNa8ZAXepBqm AxXhNYP1PiM7GRZ9zYPbnE9t oGkdfibsbM1dKpg+RmVtYWxlPC 85VR04oRBhb0Y7kFO0H8FcVUSt fcseifqxuSA5IVNjEAXxdK44 iJHaETpcHc1oj6Y5a834BMNaTM WxiF00Bf3bxWohCRCdpKKDzZ8k dedzw3cpvysnGhEnAFNbVBo8 DGy6FAYcqIqzGxRyKJN7KgF9PF T8hFWcwS1ksYuryfddwO9gMfl+ HB7vhbwwrzV9AY18ZJ79X2Kw PjwvdGFibGU+PHRhYmxlIHdpZH CaCThwUHBcKcZidZvzAQ5fYy8f FISpXKEglXnpdZOdPwGyt0lj DMFlTSujQD0dbRhoD1AkpUY1GF Puu2e0Ij96J46yL3FybDI+PGNv oAM9vQF4bR8oZbAfVjH3GRdo R426IbKxiWJiOejzx9hfy4rucH c6GwCpQLTkeuBmzDxkSZR9x4Nu Hz21V86qOThpGGWkXLVeRZSr QERffEqged5bkM0tTn0+PGNvbC I8zKF2lD2wEmVlZxE4RHxqF142 BgWaoIDiClqhF19vH4DpkPA+ SODxCet7JEVajEalOH5yqTTrPA gpXy7eNCZ3WgUiWkDhCLgvW9Dh LQCkyedbinjwrKE0CUAySWXj gF94Op2mgZykWn8cHZOmZXR3LE KypULpT8MweA4cEqAcLUAmSCWc O9EtgNZjLEdbM972TYmiWdB3 VGGodmBkG8NuCQDbnBitOoC1s6 K2Ob3CjWojwFHbDH1sVcKeNDq5 T2ZtLxe0FSBcsIjfNA5syCZv EKjaCh6ulUdflAlgND2uKTBrso lon573EhMom1wtYCRhmECoPLbj MWM8C72dk0O4HQJuMJVvWZY2 fUP1tW7kmFhbkbxijOUeaMzhax RqhZejNYdoFByxP478ODWwaXin FvEVYbm1T8ReSwr3JFTsgWko ID0aeJCuQLmgCx1dkVtgiWckCS 2hTZFgfccai265QdLlv9fmRYZw aCCnWGocXEM7F29bt3C5MVOf ZGJjNPY2uXS7uI9fhPmvxzicnN YjxVpxkzBdxTewLPlsPMkxT157 WYGgaFaiOm6FWdr9X3GfNyg1 DSNvgUmaBV1jnNTfQNzlKl9uxY dviFmjSY6bPWHqcwpdn084ArBt d6zeJEIolGPtCBvlRIE1E41l t6B0OHZtVPUlEKR1dYH2xA2iiQ lnbjogbGVmdDsgdmVydGljYWwt HOslR198KQMqwWwlDpGbdLNt OjwvdGQ+KC49de68F5LyFqooGr w2LPRbSGM0tVD4kG7wANAfDPps b9Y3iBL7F7SuxmLfax8dm1af AUPmBYelC71vg (more content not included)... Normal [facility] CT Abdomen/Pelvis w/ Contras ton 10-01-2023 CT [...] (Electronic Signature): 10/01/2023 7:22 am Signed by: Emory Hsu MD Transcribed by: CAROLANN Technologist: PRAVEENA Technical Comments GFR (mL/min/1/73m2) na/age Contrast: Isovue 300 Contrast amount in ml's: 100 Technical Comments Rectal Contrast Given? No Oral contrast amount in ml's: 0 Normal [facility] Discharge Instructionson Discharge Instructions [id number] Normal [facility] ED Note-Physicianon 10-01-19 24 ED Note-Physician Basic Information Time Seen: Dalton Padilla PA-C. 09/30/2023 19:39 Chief Complaint (L) lower ABD [...] as well. Reports surgery was done at [facility]. Denies any fever or chills. Denies [...] and Complexity of Problems Differential Diagnosis: [] [facility] Data External documents reviewed: [] My EKG [...] Medications Administered Given GenDil 100 mL + [id number] [F] 1000 mg, IV Piggyback NS 1000 ml Bolus, 1000 mL, IV ondansetron 4 mg/2 mL Inj, 4 mg, IV Push Disposition Plan Patient Discharge Condition stable Discharge Disposition to home Discharge Prescription List Prescriptions No active prescription medications Follow-up With When Contact Information ALLI MACK In 3 days 10/03/2023 EDT [address] [place] [address] Business (1) Additional Instructions: Call Dr for diagnosis based follow up Patient Education Constipation, Adult, Aocn-in-Urxo Abdominal Pain, Adult Attestation Patient seen and evaluated by the physician wily (more content not included)... Normal [facility] Comment on above: Result Comment: Elec tronically Signed By: Dalton Padilla PA-C\.br\Date and Time Signed: 09/30/23 22:56 EDT\.br\Electronically Co-Signed By: Dino Mccollum DO\.br\Date and Time Co-Signed: 10/01/23 01:46 EDT B hCG Qualon 09-30-2023 Beta HCG ( test) Ql Negative Normal [facility] Comment on above: Performed By: #### 2 [id number] #### [facility] [address] [place] [address] BMPon 09-30-2023 Anion gap [Moles/Vol] 10 mmol/L Normal 6-16 [facility] Comment on above: Performed By: #### 2 [id number] #### [facility] [address] [place] [address] Calcium [Mass/Vol] 8.9 mg/dL Normal 8.9-11.1 [facility] Comment on above: Performed By: #### 2 [id number] #### [facility] [address] [place] [address] Chloride [Moles/Vol] 110 mmol/L Normal 101-111 [facility] Comment on above: Performed By: #### 2 [id number] #### [facility] [address] [place] [address] CO2 [Moles/Vol] 22 mmol/L Normal 21-31 [facility] Comment on above: Performed By: #### 2 [id number] #### [facility] [address] [place] [address] Creatinine [Mass/Vol] 0.7 mg/dL Normal 0.5-1.3 [facility] Comment on above: Performed By: #### 2 [id number] #### [facility] [address] [place] [address] Glucose [Mass/Vol] 100 mg/dL Normal 55-199 [facility] Comment on above: Performed By: #### 2 [id number] #### [facility] [address] [place] [address] Potassium [Moles/Vol] 4.0 mmol/L Normal 3.5-5.3 [facility] Comment on above: Performed By: #### 2 [id number] #### [facility] [address] [place] [address] Sodium [Moles/Vol] 138 mmol/L Normal 135-145 [facility] Comment on above: Performed By: #### 2 [id number] #### [facility] [address] [place] [address] Urea nitrogen [Mass/Vol] 10 mg/dL Normal 5-21 [facility] Comment on above: Performed By: #### 2 [id number] #### [facility] [address] [place] [address] Urea nitrogen/Creatinine [Mass ratio] 14 No Units Normal 10-20 [facility] Comment on above: Performed By: #### 2 [id number] #### [facility] [address] [place] [address] CBC w/ Auto Diffon 4 Basophils/100 WBC (Bld) 1.2 % Normal 0.0-2.0 [facility] Comment on above: Performed By: #### 2 [id number] #### [facility] [address] [place] [address] Basophils/Leukocytes Auto (Bld) [Pure # fraction] 0.1 E9/L Normal 0.0-0.2 [facility] Comment on above: Performed By: #### 2 [id number] #### [facility] [address] [place] [address] Eosinophils (Bld) [#/Vol] 0.3 E9/L Normal 0.0-0.5 [facility] Comment on above: Performed By: #### 2 [id number] #### [facility] [address] [place] [address] Eosinophils/100 WBC (Bld) 4.3 % Normal 0.0-8.0 [facility] Comment on above: Performed By: #### 2 [id number] #### [facility] [address] [place] [address] Erythrocyte distribution width (RBC) [Ratio] 13.8 % Normal 10.9-14.2 [facility] Comment on above: Performed By: #### 2 [id number] #### [facility] [address] [place] [address] Hematocrit (Bld) [Volume fraction] 33.8 % Low 34.0-46.0 [facility] Comment on above: Performed By: #### 2 [id number] #### [facility] [address] [place] [address] Hemoglobin (Bld) [Mass/Vol] 12.1 g/dL Normal 12.0-16.0 [facility] Comment on above: Performed By: #### 2 [id number] #### [facility] [address] [place] [address] Lymphocytes (Bld) [#/Vol] 1.9 E9/L Normal 1.0-4.0 [facility] Comment on above: Performed By: #### 2 [id number] #### [facility] [address] [place] [address] Lymphocytes/100 WBC (Bld) 26.2 % Normal 14.0-50.0 [facility] Comment on above: Performed By: #### 2 [id number] #### [facility] [address] [place] [address] MCH (RBC) [Entitic mass] 33.0 pg Normal 27.0-34.0 [facility] Comment on above: Performed By: #### 2 [id number] #### [facility] [address] [place] [address] MCHC (RBC) [Mass/Vol] 35.7 g/dL Normal 31.4-36.0 [facility] Comment on above: Performed By: #### 2 [id number] #### [facility] [address] [place] [address] MCV (RBC) [Entitic vol] 92.4 fL Normal 80.0-100.0 [facility] Comment on above: Performed By: #### 2 [id number] #### [facility] [address] [place] [address] Monocytes (Bld) [#/Vol] 0.7 E9/L Normal 0.2-1.0 [facility] Comment on above: Performed By: #### 2 [id number] #### [facility] [address] [place] [address] Neutrophils (Bld) [#/Vol] 4.2 E9/L Normal 2.0-7.5 [facility] Comment on above: Performed By: #### 2 [id number] #### [facility] [address] [place] [address] Neutrophils/100 WBC (Bld) 58.5 % Normal 36.0-75.0 [facility] Comment on above: Performed By: #### 2 [id number] #### [facility] [address] [place] [address] Platelet 232.0 E9/L Normal 150.0-500. 0 [facility] Comment on above: Performed By: #### 2 [id number] #### [facility] [address] [place] [address] Platelet mean volume (Bld) [Entitic vol] 8.6 fL Normal 6.4-10.8 [facility] Comment on above: Performed By: #### 2 [id number] #### [facility] [address] [place] [address] RBC (Bld) [#/Vol] 3.7 E12/L Low 4.3-5.9 [facility] Comment on above: Performed By: #### 2 [id number] #### [facility] [address] [place] [address] WBC corrected for nucl RBC Auto (Bld) [#/Vol] 7.3 E9/L Normal 4.0-11.0 [facility] Comment on above: Performed By: #### 2 [id number] #### [facility] [address] [place] [address] CHEMISTRYOrdered By: SYSTEM SYSTEM on 09-30-2023 Albumin [...] for Treatmenton 09-14 Consent for Treatment [id number] Normal [facility] ED Clinical Summaryon 2023 ED Clinical Summary (Inserted Image. Brianna ble to display) [place] [address] ED Clinical Summary Person Information Name: THUY MALIK Kristan/[facility] Age: 18 Years : 2005 Sex: Female Language: Indian PCP: ALLI MACK CNP Marital Status: Single [...] 09/30/2023 23:02:52 09/30/2023 23:02:52 09/30/2023 23:02:52 ADDRESS: [address] [place] [address] [phone] PHYS DOC NOTES: MEDICAL INFORMATION: Prescriptions Given: [...] 1. PATIENT EDUCATION INFORMATION: Instructions: Constipation, Adult, Pcji-jg-Pmln; Abdominal Pain, Adult Follow up: With: Address: When: ALLI MACK [address] [place] [address] [phone] [place] ([employer] In 3 days 10/03/2023 Comments: Call Dr for diagnosis based follow up DIAGNOSIS: Abdominal pain; Constipated Normal [facility] ED Patient Education Noteon 09-30-2023 ED [...] in fat and sugar, such as: ? Moroccan fries. ? Hamburgers. ? Cookies. ? Candy. ? Soda. ? Drink enough fluid to keep your pee (urine) pale yellow. General instructions ? Exercise regularly or as told by your doctor. Try to do 150 minutes of exercise each week. ? Go to the restroom when you feel like you need to poop. Do not hold it in. ? Take fxim-abu-uilkpja and prescription medicines only as told by [...] your pee (urine) pale yellow. ? Take dzsd-ees-fzfkdnu and prescription medicines only as told by your doctor. These include any fiber supplements. This information is not intended to replace advice given to you by your health care provider. Make sure you discuss any questions you have with your health care provider. Document Revised: 02/18/2020 Document Reviewed: 02/18/2020 [employer] Patient Education ? 2022 MMIT. Abdominal Pain, Adult Pain in the abdomen [...] these instructions at home: Medicines ? Take figa-qdn-ykkrscb and prescription medicines only as told by [...] your condition for any changes. ? Take pcqk-etb-vdtpfff and prescription medicines only as told by your health care provider. ? Contact a health care provider if your abdominal pain changes or gets worse. ? Get help right away if you have severe pain, cram (more content not included)... Normal [facility] ED Patient Summaryon 024 ED Patient Summary (Inserted Image. Brianna ble to display) [place] [id number] Patient Discharge Instructions Person Information Name: THUY MALIK Age: 18 Years Arrival Date: 09/30/2023 19:36:09 Discharge Diagnosis: Abdominal pain; Constipated Primary Care Physician: ALLI MACK CNP Provider Information Primary Provider: Dino Mccollum DO [employer] Salesperson:None The exam and treatment you received in the Emergency Department were for an urgent problem and are not intended as complete care. It is important that you follow up with a doctor, nurse practitioner, or physician?s assistant professor of geography for ongoing care. If your symptoms become worse or you do not improve as expected and you are unable to reach your usual health care provider, you should return to the Emergency Department. We are available 24 hours a day. THUY MALIK has been given the following list of patient education materials, prescriptions and follow-up instructions: Follow-up Instructions: With: Address: When: ALLI MACK [address] [place] [address] [phone] [place] ([employer] In 3 days 10/03/2023 Comments: Call Dr for diagnosis based follow up In the event that this physician does not participate in your insurance network, please consult with your insurance company to find a nearby participating provider. Patient Education Materials: Constipation, Adult, Xcch-xm-Jrps; Abdominal Pain, Adult A MESSAGE TO ALL PATIENTS REGARDING OPIOIDS PRESCRIPTION OPIOIDS: WHAT YOU NEED TO KNOW Prescription opioids can be used to help relieve lifactxe-qf-mprmai pain and are often prescribed following a [...] be struggling with addiction, tell your health childcare administrator and ask f (more content not included)... Normal [facility] HEMATOLOGYOrdered By: SYSTEM SYSTEM on 09-30-2023 [...] 09-30-2023 Albumin [Mass/Vol] 4.0 g/dL Normal 3.3-5.0 [facility] Comment on above: Performed By: #### 2 [id number] #### [facility] [address] [place] [address] Albumin/Globulin (S) [Mass conc ratio] 1.8 Normal 1.1-2.2 [facility] Comment on above: Performed By: #### 2 089303 #### [facility] [address] [place] [address] ALP [Catalytic activity/Vol] 37 Int._Unit/L Normal 21-98 [facility] Comment on above: Performed By: #### 2 738583 #### [facility] [address] [place] [address] ALT No additional P-5'-P [Catalytic activity/Vol] 8 Int._Unit/L Normal 6-46 [facility] Comment on above: Performed By: #### 2 928755 #### [facility] [address] [place] [address] AST [Catalytic activity/Vol] 13 Int._Unit/L Normal 5-43 [facility] Comment on above: Performed By: #### 2 892504 #### [facility] [address] [place] [address] Bilirubin [Mass/Vol] 0.5 mg/dL Normal 0.0-1.1 [facility] Comment on above: Performed By: #### 2 524761 #### [facility] [address] [place] [address] Bilirubin.direct [Mass/Vol] 0.1 mg/dL Normal 0.0-0.4 [facility] Comment on above: Performed By: #### 2 636990 #### [facility] [address] [place] [address] Bilirubin.indirect [Mass or moles/Vol] 0.4 mg/dL Normal 0.1-0.9 [facility] Comment on above: Performed By: #### 2 945625 #### [facility] [address] [place] [address] Globulin (S) [Mass/Vol] 2.2 g/dL Normal 1.4-4.0 [facility] Comment on above: Performed By: #### 2 579197 #### [facility] [address] [place] [address] Protein [Mass/Vol] 6.2 g/dL Normal 6.0-7.8 [facility] Comment on above: Performed By: #### 2 600499 #### [facility] [address] [place] [address] Lipase Levelon 09-30-2023 Lipase [Catalytic activity/Vol] 20 U/L Normal 13-58 [facility] Comment on above: Performed By: #### 2 503424 #### [facility] [address] [place] [address] RAD - Preliminary Cat Scan R eporton 09-30-2023 RAD - Preliminary Cat Scan Report [id number]#[id number] Normal [facility] SEROLOGYOrdered By: Ana Hutchins on 09-30-2023 Beta HCG ( test) Ql Negative (09/30/23 8:19 PM) Normal [facility] Man Sero UA with Cult [employer] 09-30-19 Bilirubin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 school psychologist at [facility] in agreement Ordered: [facility] External Ambulatory Referral 2. Acute upper respiratory infection (J06.9: Acute upper respiratory infection, unspecified) Explained viral vs bacterial infection Encouraged increase fluids Instructed to finish the cephalexin prescribed by the ED f/u if no improvement Ordered: Influenza Type A&B POC 85471 3. BMI 31.0-31.9,adult (Z68.31: Body mass index [...] Depression Patient Education Upper Respiratory Infection, Adult, Jrrh-si-Tvxm Problem List/Past Medical History Ongoing Acute upper [...] inactivated 05/23/2023 G (more content not included)... Normal [facility] Comment on above: Result Comment: Elec tronically Signed By: ALLI MACK CNP\.br\Date and Time Signed: 06/21/23 07:31 EST Physician Referralon 024 Physician Referral [id number] Normal [facility] Ambulatory Visit Summaryon 0 06-20-2023 Ambulatory Visit [...] PM EDT With: ALLI MACK CNP Where: [facility] [place] Normal [facility] Patient Educationon 06-20-19 24 Patient Education [...] to help relieve symptoms, such as: ? Afoq-lqz-mfupwvq cold medicines. ? Medicines to reduce coughing [...] other clear broths. General instructions ? Take xdcw-vov-uasgzbo and prescription medicines only as told by [...] cannot use soap and water, use hand hull molder. ? Avoid touching your mouth, face, eyes, [...] get better within 7?10 days. ? Take rfto-usd-fjbddsj and prescription medicines only as told by your doctor. This information is not intended to replace advice given to you by your health care (more content not included)... Normal [facility] Ambulatory Visit Summaryon 0 05-23-2023 Ambulatory Visit [...] EST With: Socorro Casarez [facility] Consent for Flu Vaccineon Consent for Flu Vaccine [id number] [facility] Medicine Office/Clini c Noteon 05-23-2023 Family Medicine [...] Daily, # 90 tab(s), Refills(s) 1, Pharmacy: [facility] [id number] [facility] [employer], 168, cm, 05/23/23 13:08:00 EST, Height/Length Dosing, 90, kg, 05/23/23 13:08:00 EST, Weight Dosing Completed & reviewed the PHQ-9 score of 13 and the MARCIAL-7 score of 18 today in the office escitalopram, 20 mg = 1 tab(s), Oral, Daily, # 90 tab(s), Refills(s) 1, Pharmacy: [id number] [employer], 168, cm, 05/23/23 13:08:00 EST, Height/Length Dosing, 90, kg, 05/23/23 13:08:00 EST, Weight Dosing f/u in 4 weeks Ordered: influenza virus vaccine, inactivated, 0.5 mL, Injection, IntraMuscular, Once, Stop date 05/23/23 14:00:00 EST, Routine, Start date 05/23/23 14:00:00 EST trazodone, 50 mg = 1 tab(s), Oral, Once a day (at bedtime), # 90 tab(s), Refills(s) 1, Pharmacy: [facility] [id number] [address] [employer], 168, cm, 05/23/23 13:08:00 EST, Height/Length Dosing, 90, kg, 05/23/23 13:08:00 EST, Weight Dosing 2. Encounter to establish care (Z76.89: Persons encountering health services in other specified circumstances) 3. Encounter for immunization (Z23: Encounter for immunization) Ordered: influenza virus vaccine, inactivated, 0.5 mL, Injection, IntraMuscular, Once, Stop date 05/23/23 14:00:00 EST, Routine, Start date 05/23/23 14:00:00 EST FIRST VACCINE w/o Motorcycle Technician Admin Charge [id number] Orders: escitalopram, 20 mg = 1 tab(s), Oral, Daily, # 90 tab(s), Refills(s) 1, [facility]acy: [id number] [employer], 168, cm, 05/23/23 13:08:00 EST, [...] 1 refills (more content not included)... Normal [facility] Comment on above: Result Comment: Elec tronically Signed By: ALLI MACK CNP.br\Date and Time Signed: 05/23/23 13:50 EST Patient [...] or salt (sodium). General instructions ? Take xpgh-hdf-jtsrfqm and prescription medicines only as told by [...] Kristan: [email or web address] (more content not included)... Normal [facility] CHEMISTRYOrdered By: SYSTEM SYSTEM on 07-20-2022 [...] fraction] 4.3 % Normal <=5.9% [facility] Cholesterol [Mass/volume] in Serum or PlasmaOrdered By: Dean Solis on 07-10-2022 Cholesterol [Mass/Vol] 134 mg/dL 140-200 [facility] Comment on above: Chol less than 200 m g/dl low riskChol 201-239 mg/dl borderline riskChol 240 mg/dl and greater high risk Cholesterol in LDL Calc [Mas s/Vol]Ordered By: Dean Solis on 07-10-2022 Cholesterol in LDL [Mass/Vol] 69 mg/dL 0-100 [facility] Comment on above: LDL ATP III CLASSIFI CATIONLDL less than 100 mg/dL OptimalLDL 100-129 mg/dL Near or above optimalLDL 130-159 mg/dL Borderline highLDL 160-189 mg/dL HighLDL greater than 189 mg/dL Very high Cholesterol in VLDL Calc [Ma ss/Vol]Ordered By: Dean Solis on 07-10-2022 Cholesterol in VLDL [Mass/Vol] 12 mg/dL [facility] Serum or plasma high density lipoprotein (HDL) cholesterol measurementOrdered By: Dean Solis on 07-10-2022 Cholesterol in HDL [Mass/Vol] 53 mg/dL 35-85 [facility] Comment on above: HDL CHOL ATP-III CLA SSIFICATION Cardiovascular RiskHDL > or equal to 60 mg/dL LOWHDL < 40 mg/dL HIGH Serum or plasma total choles terol/high density lipoprotein (HDL) cholesterol mass ratOrdered By: Dean Solis on 07-10-2022 Cholesterol.total/Chol esterol in HDL [Mass ratio] 2.5 {ratio} <5.0 [facility] Thyrotropin [Units/volume] i n Serum or PlasmaOrdered By: Dean Solis on 07-10-2022 TSH Qn 3.34 m[IU]/L 0.45-5.33 [facility] Triglyceride [Mass/volume] i n Serum or PlasmaOrdered By: Dean Solis on 07-10-2022 Triglyceride [Mass/Vol] 62 mg/dL 0-149 [facility] Comment on above: TRIG ATP III CLASSIF ICATIONTRIG less than 150 mg/dL NormalTRIG 150-199 mg/dL Borderline highTRIG 200-500 mg/dL High TRIG greater than 500 mg/dL Very highStandard traceable to the Center for Disease Conrtrol and Prevention (CDC) test method. Vitamin D+Metabolites [Mass/ volume] in Serum or PlasmaOrdered By: Dean Solis on 07-10-2022 Vitamin D+Metabolites [Mass/Vol] 12.0 ng/mL 30-100 [facility] Comment on above: VITAMIN D STATUS 25( OH)VITAMIN D RANGE (ng/mL) Deficient <20 Insufficient 20 to <30Sufficient 30 to 100Reference: Cem MF,Bernadine NC, Trudi PRICE, et al. Evaluation,treatment, and prevention of vitamin D deficiency; an Endocrine Society clinical practice guideline. JCEM. 2010; 96(7):1911-30. ACETAMINOPHENon 07-09-2022 Acetaminophen [Mass/Vol] ug/mL Critically low 10.0-30.0 [facility] Comment on above: Performed By: #### C MP, SERINA, ACET #### [facility] [address] [place] [address] Dr. Skylar Ramirez CBC AUTO DIFFon 07-09-2022 BASO # 0.1 103/ul Normal 0.0-0.1 [facility] Comment on above: Performed By: #### C BC #### [facility] [address] [address] [address] Skylar Ramirez Basophils/100 WBC (Bld) 0.6 % Normal 0.2-2.0 [facility] Comment on above: Performed By: #### C BC #### [facility] [address] [place] [address] Dr. Skylar Ramirez EO # 0.1 103/ul Normal 0.0-0.7 [facility] Comment on above: Performed By: #### C BC #### [facility] [address] [place] [address] Dr. Skylar Ramirez Eosinophils/100 WBC (Bld) 1.0 % Normal 0.9-7.0 [facility] Comment on above: Performed By: #### C BC #### [facility] [address] [place] [address] Dr. Skylar Ramirez Erythrocyte distribution width (RBC) [Ratio] 12.6 % Normal 11.0-15.0 [facility] Comment on above: Performed By: #### C BC #### [facility] [address] [place] [address] Dr. Skylar Ramirez Hematocrit (Bld) [Volume fraction] 39.7 % Normal 36.0-48.0 [facility] Comment on above: Performed By: #### C BC #### [facility] [address] [place] [address] Dr. Skylar Ramirez Hemoglobin (Bld) [Mass/Vol] 14.4 g/dL Normal 12.0-16.0 [facility] Comment on above: Performed By: #### C BC #### [facility] [address] [address] [address] Skylar Ramirez IG # 0.03 10e3/ul Normal 0.00-0.03 [facility] Comment on above: Performed By: #### C BC #### [facility] [address] [place] [address] Dr. Skylar Ramirez IG % 0.4 % Normal 0.0-0.5 [facility] Comment on above: Performed By: #### C BC #### [facility] [address] [place] [address] Dr. Skylar Ramirez LYMPH # 2.2 103/ul Normal 1.2-3.8 [facility] Comment on above: Performed By: #### C BC #### [facility] [address] [place] [address] Dr. Skylar Ramirez Lymphocytes/100 WBC (Bld) 27.4 % Normal 20.5-60.0 [facility] Comment on above: Performed By: #### C BC #### [facility] [address] [place] [address] Dr. Skylar Ramirez MANUAL DIFF REQ NO Normal [facility] Comment on above: Performed By: #### C BC #### [facility] [address] [place] [address] Dr. Skylar Ramirez MCH (RBC) [Entitic mass] 33.6 pg Normal 26.7-34.0 [facility] Comment on above: Performed By: #### C BC #### [facility] [address] [place] [address] Dr. Skylar Ramirez MCHC (RBC) [Mass/Vol] 36.3 g/dL Critically high 29.9-35.2 [facility] Comment on above: Performed By: #### C BC #### [facility] [address] [place] [address] Dr. Skylar Ramirez MCV (RBC) [Entitic vol] 92.5 fL Normal 81.0-99.0 [facility] Comment on above: Performed By: #### C BC #### [facility] [address] [place] [address] Dr. Skylar Ramirez MONO # 0.4 103/ul Normal 0.3-0.8 [facility] Comment on above: Performed By: #### C BC #### [facility] [address] [place] [address] Dr. Skylar Ramirez Monocytes/100 WBC (Bld) 5.5 % Normal 1.7-12.0 [facility] Comment on above: Performed By: #### C BC #### [facility] [address] [place] [address] Dr. Skylar Ramirez NEUT # 5.3 103/ul Normal 1.4-6.5 [facility] Comment on above: Performed By: #### C BC #### [facility] [address] [place] [address] Dr. Skylar Ramirez Neutrophils/100 WBC (Bld) 65.1 % Normal 43.0-75.0 [facility] Comment on above: Performed By: #### C BC #### [facility] [address] [place] [address] Dr. Skylar Ramirez Platelet mean volume (Bld) [Entitic vol] 9.8 fL Normal 9.5-13.5 [facility] Comment on above: Performed By: #### C BC #### [facility] [address] [place] [address] Dr. Skylar Ramirez PLT 316 103/ul Normal 150-450 [facility] Comment on above: Performed By: #### C BC #### [facility] [address] [place] [address] Dr. Skylar Ramirez RBC 4.29 106/ul Normal 4.20-5.40 [facility] Comment on above: Performed By: #### C BC #### [facility] [address] [place] [address] Dr. Skylar Ramirez WBC 8.1 103/ul Normal 4.0-11.0 [facility] Comment on above: Performed By: #### C BC #### [facility] [address] [address] [address] Skylar Ramirez DRUG SCREEN RAPID (URINE)on 07-09-2022 AMP Negative Normal NEGATIVE [facility] Comment on above: Performed By: #### E TH #### [facility] [address] [place] [address] Dr. Skylar Ramirez BAR Negative Normal NEGATIVE [facility] Comment on above: Performed By: #### E TH #### [facility] [address] [place] [address] Dr. Skylar Ramirez BUP Negative Normal NEGATIVE [facility] Comment on above: Performed By: #### E TH #### [facility] [address] [place] [address] Dr. Skylar Ramirez BZO Negative Normal NEGATIVE [facility] Comment on above: Performed By: #### E TH #### [facility] [address] [place] [address] Dr. Skylar Ramirez RICHIE Negative Normal NEGATIVE [facility] Comment on above: Performed By: #### E TH #### [facility] [address] [place] [address] Dr. Skylar Ramirez CUT-OFFS SEE BELOW Normal [facility] Comment on above: Result Comment: AMP [...] ng/mL Performed By: #### E TH #### [facility] [address] [place] [address] Dr. Skylar Ramirez DRUG CUT HEADER DRUG CLASS TEST SYST EM CUT-OFF CONCENTRATIONS ARE FOLLOWS: Normal [facility] Comment on above: Performed By: #### E TH #### [facility] [address] [place] [address] Dr. Skylar Ramirez mAMP Negative Normal NEGATIVE [facility] Comment on above: Performed By: #### E #### [facility] [address] [place] [address] Dr. Skylar Ramirez MTD Negative Normal NEGATIVE [facility] Comment on above: Performed By: #### E #### [facility] [address] [place] [address] Dr. Skylar Ramirez OPI Negative Normal NEGATIVE [facility] Comment on above: Performed By: #### E #### [facility] [address] [place] [address] Dr. Skylar Ramirez OXY Negative Normal NEGATIVE [facility] Comment on above: Performed By: #### E #### [facility] [address] [place] [address] Dr. Skylar Ramirez PCP Negative Normal NEGATIVE [facility] Comment on above: Performed By: #### E #### [facility] [address] [place] [address] Dr. Skylar Ramirez PPX Negative Normal NEGATIVE [facility] Comment on above: Performed By: #### E #### [facility] [address] [place] [address] Dr. Skylar Ramirez TCA Negative Normal NEGATIVE [facility] Comment on above: Performed By: #### E #### [facility] [address] [place] [address] Dr. Skylar Ramirez THC Positive Abnormal NEGATIVE [facility] Comment on above: Performed By: #### E #### [facility] [address] [place] [address] Dr. Skylar Ramirez ER URINE PROFILEon 3 Bilirubin Ql (U) Negative Normal NEGATIVE [facility] Comment on above: Performed By: #### D MARIBETH ERUR #### [facility] [address] [place] [address] Dr. Skylar Ramirez Clarity (U) CLEAR Normal CLEAR [facility] Comment on above: Performed By: #### D MARIBETH ERUR #### [facility] [address] [place] [address] Dr. Skylar Ramirez Color (U) LT. YELLOW Normal YELLOW [facility] Comment on above: Performed By: #### D MARIBETH, ERUR #### [facility] [address] [place] [address] Dr. Skylar DOUGHERTY A micrscopic examina tion will be performed if indicated. Normal [facility] Comment on above: Performed By: #### D MARIBETH, ERUR #### [facility] [address] [place] [address] Dr. Skylar Ramirez Glucose Ql (U) Negative Normal NEGATIVE [facility] Comment on above: Performed By: #### D MARIBETH, ERUR #### [facility] [address] [place] [address] Dr. Skylar Ramirez Hemoglobin Ql (U) Negative Normal NEGATIVE [facility] Comment on above: Performed By: #### Jessica STAHL, ERUR #### [facility] [address] [place] [address] Dr. Syklar Ramirez Ketones Ql (U) Negative Normal NEGATIVE [facility] Comment on above: Performed By: #### Jessica STAHL, ERUR #### [facility] [address] [place] [address] Dr. Skylar Ramirez LEUKOCYTES Negative Normal NEGATIVE [facility] Comment on above: Performed By: #### Jessica STAHL, ERUR #### [facility] [address] [place] [address] Dr. Skylar Ramirez Nitrite Ql (U) Negative Normal NEGATIVE [facility] Comment on above: Performed By: #### Jessica STAHL, ERUR #### [facility] [address] [place] [address] Dr. Skylar Ramirez pH (U) 6.0 [pH] Normal 5-9 [facility] Comment on above: Performed By: #### Jessica STAHL, ERUR #### [facility] [address] [place] [address] Dr. Skylar Ramirez SPEC GRAVITY <=1.005 Abnormal 1.005-<=1. 025 [facility] Comment on above: Performed By: #### D MARIBETH, ERUR #### [facility] [address] [place] [address] Dr. Skylar Ramirez UA PROTEIN Negative Normal NEGATIVE/ TRACE [facility] Comment on above: Performed By: #### D MARIBETH, ERUR #### [facility] [address] [place] [address] Dr. Skylar Ramirez UR MICRO IND NOT INDICATED Normal [facility] Comment on above: Performed By: #### D MARIBETH, ERUR #### [facility] [address] [place] [address] Dr. Skylar Ramirez Urobilinogen Qn (U) 0.2 {Evens'U}/dL Normal 0.2 - 1. 0 [facility] Comment on above: Performed By: #### D MARIBETH, ERUR #### [facility] [address] [place] [address] Dr. Skylar Ramirez ETHANOL (BLD ALC)on 07-10-19 ALC NOTE NOTE: 80 mg/dl is th e legal limit for a blood alcohol level Normal [facility] Comment on above: Performed By: #### E TH #### [facility] [address] [place] [address] Dr. Skylar Ramirez Ethanol [Mass/Vol] 90 mg/dL Normal [facility] Comment on above: Performed By: #### E TH #### [facility] [address] [place] [address] Dr. Skylar Ramirez ALC NOTE NOTE: 80 mg/dl is th e legal limit for a blood alcohol level Normal [facility] Comment on above: Performed By: #### E TH #### [facility] [address] [place] [address] Dr. Skylar Ramirez Ethanol [Mass/Vol] 116 mg/dL Normal [facility] Comment on above: Performed By: #### E TH #### [facility] [address] [place] [address] Dr. Skylar Ramirez PREG HCG QUALon 07-09-2022 , QUAL Negative Normal NEGATIVE [facility] Comment on above: Performed By: #### P REG #### [facility] [address] [address] [address] Skylar Ramirez PROF 14(COMP METB)on 023 Albumin [Mass/Vol] 4.4 g/dL Normal 3.4-5.0 [facility] Comment on above: Performed By: #### C SERINA GUPTA, ACET #### [facility] [address] [address] [address] Skylar Ramirez Albumin/Globulin [Mass ratio] 1.5 {ratio} Normal [facility] Comment on above: Performed By: #### C SERINA GUPTA, ACET #### [facility] [address] [place] [address] Dr. Skylar Ramirez ALP [Catalytic activity/Vol] 65 U/L Normal 46-116 [facility] Comment on above: Performed By: #### C SERINA GUPTA, ACET #### [facility] [address] [address] [address] Skylar Ramirez ALT [Catalytic activity/Vol] 16 U/L Normal 14-59 [facility] Comment on above: Performed By: #### C SERINA GUPTA, ACET #### [facility] [address] [address] [address] Skylar Ramirez Anion gap [Moles/Vol] 14.2 mmol/L Normal [facility] Comment on above: Performed By: #### C SERINA GUPTA, ACET #### [facility] [address] [address] [address] Skylar Ramirez AST [Catalytic activity/Vol] 14 U/L Critically low 15-37 [facility] Comment on above: Performed By: #### C SERINA GUPTA, ACET #### [facility] [address] [place] [address] Dr. Skylar Ramirez Bilirubin [Mass/Vol] 0.6 mg/dL Normal 0.2-1.0 [facility] Comment on above: Performed By: #### C SERINA GUPTA, ACET #### [facility] [address] [place] [address] Dr. Skylar Ramirez Calcium [Mass/Vol] 9.1 mg/dL Normal 8.5-10.1 [facility] Comment on above: Performed By: #### C ENZO GUPTAYC, ACET #### [facility] [address] [address] [address] Skylar Ramirez Chloride [Moles/Vol] 106 mmol/L Normal 98-107 [facility] Comment on above: Performed By: #### C CANDY SALYC, ACET #### [facility] [address] [address] [address] Skylar Ramirez CO2 [Moles/Vol] 26.0 mmol/L Normal 21.0-32.0 [facility] Comment on above: Performed By: #### C ENZO GUPTAYC, ACET #### [facility] [address] [address] [address] Skylar Ramirez Creatinine [Mass/Vol] 0.78 mg/dL Normal 0.55-1.02 [facility] Comment on above: Performed By: #### C CANDY SALYC, ACET #### [facility] [address] [address] [address] Skylar Ramirez EGFR-AF TANZANIAN >60 Normal >=60 [facility] Comment on above: Performed By: #### C CANDY SALYC, ACET #### [facility] [address] [address] [address] Skylar Ramirez EGFR-NON AF TANZANIAN >60 Normal >=60 [facility] Comment on above: Performed By: #### C CANDY SALYC, ACET #### [facility] [address] [address] [address] Skylar Ramirez Globulin (S) [Mass/Vol] 3.0 g/dL Normal [facility] Comment on above: Performed By: #### C CANYD SALYC, ACET #### [facility] [address] [address] [address] Skylar Ramirez Glucose [Mass/Vol] 129 mg/dL Critically high 74-106 [facility] Comment on above: Performed By: #### C CANDY SALYC, ACET #### [facility] [address] [address] [address] Skylar Ramirez Potassium [Moles/Vol] 3.2 mmol/L Critically low 3.5-5.1 [facility] Comment on above: Performed By: #### C MP, SALYC, ACET #### [facility] [address] [place] [address] Dr. Skylar Ramirez Protein [Mass/Vol] 7.4 g/dL Normal 6.4-8.2 [facility] Comment on above: Performed By: #### C MP, SALYC, ACET #### [facility] [address] [place] [address] Dr. Skylar Ramirez Sodium [Moles/Vol] 143 mmol/L Normal 136-145 [facility] Comment on above: Performed By: #### C MP, SALYC, ACET #### [facility] [address] [place] [address] Dr. Skylar Ramirez Urea nitrogen [Mass/Vol] 6.0 mg/dL Critically low 6.4-19.3 [facility] Comment on above: Performed By: #### C MP, SALYC, ACET #### [facility] [address] [place] [address] Dr. Skylar Ramirez Urea nitrogen/Creatinine [Mass ratio] 7.7 mg/mg Normal [facility] Comment on above: Performed By: #### C MP, SALYC, ACET #### [facility] [address] [place] [address] Dr. Skylar Ramirez SALICYLATEon 07-09-2022 SALICYLATE <2.8 Normal <=19.9 [facility] Comment on above: Performed By: #### C MP, SALYC, ACET #### [facility] [address] [place] [address] Dr. Skylar Ramirez XR HAND RT MIN [...] JJ SILVA Date: 2022-07-09 18:12 Normal [facility] MICRO OTHER TESTSOrdered By: Jose Clay on 03-23-2022 Influenzae A Ag Negative (03/23/22 1:19 AM) Normal Negative [facility] Influenzae B Ag Negative (03/23/22 1:19 AM) Normal Negative [facility] Rapid COV Int NEG Ctl Pass (03/23/22 1:19 AM) Normal [facility] Rapid COV Int POS Ctl Pass (03/23/22 1:19 AM) Normal [facility] S. pyogenes Ag IA.rapid Ql (Throat) Negative (03/23/22 1:19 AM) Normal Negative [facility] SARS-CoV+SARS-CoV-2 (COVID-19) Ag IA.rapid Ql (Resp) Not Detected (03/23/22 1:19 AM) Normal Not Detected [facility]14 SARS-CoV-2 (COVID-19) RNA ANUP+probe Ql (Unsp spec) Detected Critically abnormal NOT DETECTED [facility] Comment on above: Result Comment: This test is not yet approved or cleared by the [place] FDA. When there are no FDA-approved or cleared tests available, and other criteria are met, FDA can make tests available under an emergency access mechanism called an Emergency Use Authorization (EUA). The EUA for this test is supported by the Premium of Health and Human Service's (HHS's) declaration [...] used). Performed By: #### E TH #### [facility] [address] [place] [address] Dr. Skylar Ramirez Covid-19 PCR ([facility])on SARS-CoV-2 (COVID-19) RNA ANUP+probe Ql (Unsp spec) Not detected Normal NOT DETECTED [facility] Comment on above: Result Comment: This test is not yet approved or cleared by the [place] FDA. When there are no FDA-approved or cleared tests available, and other criteria are met, FDA can make tests available under an emergency access mechanism called an Emergency Use Authorization (EUA). The EUA for this test is supported by the [employer] of Health and Human Service's (HHS's) declaration [...] SARS-CoV-2. Performed By: #### C VDTBH #### [facility] [address] [place] [address] Dr. Skylar Ramirez CBC AUTO DIFFon 08-17-2021 BASO # 0.1 103/ul Normal 0.0-0.1 [facility] Comment on above: Performed By: #### E TH #### [facility] [address] [place] [address] Dr. Skylar Ramirez Basophils/100 WBC (Bld) 0.6 % Normal 0.2-2.0 [facility] Comment on above: Performed By: #### E TH #### [facility] [address] [place] [address] Dr. Skylar Ramirez EO # 0.2 103/ul Normal 0.0-0.7 [facility] Comment on above: Performed By: #### E TH #### [facility] [address] [place] [address] Dr. Skylar Ramirez Eosinophils/100 WBC (Bld) 2.0 % Normal 0.9-7.0 [facility] Comment on above: Performed By: #### E TH #### [facility] [address] [place] [address] Dr. Skylar Ramirez Erythrocyte distribution width (RBC) [Ratio] 13.2 % Normal 11.0-15.0 [facility] Comment on above: Performed By: #### E TH #### [facility] [address] [place] [address] Dr. Skylar Ramirez Hematocrit (Bld) [Volume fraction] 38.4 % Normal 36.0-48.0 [facility] Comment on above: Performed By: #### E TH #### [facility] [address] [place] [address] Dr. Skylar Ramirez Hemoglobin (Bld) [Mass/Vol] 13.1 g/dL Normal 12.0-16.0 [facility] Comment on above: Performed By: #### E TH #### [facility] [address] [place] [address] Dr. Skylar Ramirez IG # 0.02 10e3/ul Normal 0.00-0.03 [facility] Comment on above: Performed By: #### E TH #### [facility] [address] [place] [address] Dr. Skylar Ramirez IG % 0.2 % Normal 0.0-0.5 [facility] Comment on above: Performed By: #### E TH #### [facility] [address] [place] [address] Dr. Skylar Ramirez LYMPH # 3.0 103/ul Normal 1.2-3.8 [facility] Comment on above: Performed By: #### E TH #### [facility] [address] [place] [address] Dr. Skylar Ramirez Lymphocytes/100 WBC (Bld) 31.8 % Normal 20.5-60.0 [facility] Comment on above: Performed By: #### E TH #### [facility] [address] [place] [address] Dr. Skylar Ramirez MANUAL DIFF REQ NO Normal [facility] Comment on above: Performed By: #### E TH #### [facility] [address] [place] [address] Dr. Skylar Ramirez MCH (RBC) [Entitic mass] 32.0 pg Normal 26.7-34.0 [facility] Comment on above: Performed By: #### E TH #### [facility] [address] [place] [address] Dr. Skylar Ramirez MCHC (RBC) [Mass/Vol] 34.1 g/dL Normal 29.9-35.2 [facility] Comment on above: Performed By: #### E TH #### [facility] [address] [place] [address] Dr. Skylar Ramirez MCV (RBC) [Entitic vol] 93.7 fL Normal 81.0-99.0 [facility] Comment on above: Performed By: #### E TH #### [facility] [address] [place] [address] Dr. Skylar Ramirez MONO # 0.7 103/ul Normal 0.3-0.8 [facility] Comment on above: Performed By: #### E TH #### [facility] [address] [place] [address] Dr. Skylar Ramirez Monocytes/100 WBC (Bld) 7.6 % Normal 1.7-12.0 [facility] Comment on above: Performed By: #### E TH #### [facility] [address] [place] [address] Dr. Skylar Ramirez NEUT # 5.4 103/ul Normal 1.4-6.5 [facility] Comment on above: Performed By: #### E TH #### [facility] [address] [place] [address] Dr. Skylar Ramirez Neutrophils/100 WBC (Bld) 57.8 % Normal 43.0-75.0 [facility] Comment on above: Performed By: #### E #### [facility] [address] [address] [address] Skylar Ramirez Platelet mean volume (Bld) [Entitic vol] 10.9 fL Normal 9.5-13.5 [facility] Comment on above: Performed By: #### E #### [facility] [address] [address] [address] Skylar Ramirez PLT 275 103/ul Normal 150-450 [facility] Comment on above: Performed By: #### E TH #### [facility] [address] [address] [address] Skylar Ramirez RBC 4.10 106/ul Critically low 4.20-5.40 [facility] Comment on above: Performed By: #### E #### [facility] [address] [place] [address] Dr. Skylar Ramirez WBC 9.3 103/ul Normal 4.0-11.0 [facility] Comment on above: Performed By: #### E #### [facility] [address] [place] [address] Dr. Skylar Ramirez FREE T3on 08-17-2021 FREE T3 2.08 pg/mlL Critically low 2.91-4.70 [facility] Comment on above: Performed By: #### E #### [facility] [address] [place] [address] Dr. Skylar Ramirez FREE T4on 08-17-2021 Free T4 [Mass/Vol] 0.93 ng/dL Normal 0.78-1.34 [facility] Comment on above: Performed By: #### E #### [facility] [address] [address] [address] Skylar Ramirez PROF 14(COMP METB)on 022 Albumin [Mass/Vol] 4.4 g/dL Normal 3.4-5.0 [facility] Comment on above: Performed By: #### E #### [facility] [address] [place] [address] Dr. Skylar Ramirez Albumin/Globulin [Mass ratio] 1.6 {ratio} Normal [facility] Comment on above: Performed By: #### E TH #### [facility] [address] [place] [address] Dr. Skylar Ramirez ALP [Catalytic activity/Vol] 45 U/L Critically low 46-116 [facility] Comment on above: Performed By: #### E #### [facility] [address] [place] [address] Dr. Skylar Ramirez ALT [Catalytic activity/Vol] 14 U/L Normal 14-59 [facility] Comment on above: Performed By: #### E #### [facility] [address] [place] [address] Dr. Skylar Ramirez Anion gap [Moles/Vol] 13.7 mmol/L Normal [facility] Comment on above: Performed By: #### E #### [facility] [address] [place] [address] Dr. Skylar Ramirez AST [Catalytic activity/Vol] 8 U/L Critically low 15-37 [facility] Comment on above: Performed By: #### E #### [facility] [address] [place] [address] Dr. Skylar Ramirez Bilirubin [Mass/Vol] 1.2 mg/dL Critically high 0.2-1.0 [facility] Comment on above: Performed By: #### E #### [facility] [address] [place] [address] Dr. Skylar Ramirez Calcium [Mass/Vol] 8.7 mg/dL Normal 8.5-10.1 [facility] Comment on above: Performed By: #### E #### [facility] [address] [place] [address] Dr. Skylar Ramirez Chloride [Moles/Vol] 104 mmol/L Normal 98-107 [facility] Comment on above: Performed By: #### E #### [facility] [address] [place] [address] Dr. Skylar Ramirez CO2 [Moles/Vol] 26.7 mmol/L Normal 21.0-32.0 [facility] Comment on above: Performed By: #### E #### [facility] [address] [address] [address] Skylar Ramirez Creatinine [Mass/Vol] 0.83 mg/dL Normal 0.55-1.02 [facility] Comment on above: Performed By: #### E #### [facility] [address] [address] [address] Skylar Ramirez EGFR-AF TANZANIAN >60 Normal >=60 [facility] Comment on above: Performed By: #### E #### [facility] [address] [address] [address] Skylar Ramirez EGFR-NON AF TANZANIAN >60 Normal >=60 [facility] Comment on above: Performed By: #### E TH #### [facility] [address] [address] [address] Skylar Ramirez Globulin (S) [Mass/Vol] 2.8 g/dL Normal [facility] Comment on above: Performed By: #### E #### [facility] [address] [address] [address] Skylar Ramirez Glucose [Mass/Vol] 111 mg/dL Critically high 74-106 [facility] Comment on above: Performed By: #### E #### [facility] [address] [address] [address] Skylar Ramirez Potassium [Moles/Vol] 3.4 mmol/L Critically low 3.5-5.1 [facility] Comment on above: Performed By: #### E #### [facility] [address] [address] [address] Skylar Ramirez Protein [Mass/Vol] 7.2 g/dL Normal 6.1-8.2 [facility] Comment on above: Performed By: #### E TH #### [facility] [address] [address] [address] Skylar Ramirez Sodium [Moles/Vol] 141 mmol/L Normal 136-145 [facility] Comment on above: Performed By: #### E TH #### [facility] [address] [address] [address] Skylar Ramirez Urea nitrogen [Mass/Vol] 10.0 mg/dL Normal 6.4-19.3 [facility] Comment on above: Performed By: #### E TH #### [facility] [address] [address] [address] Skylar Ramirez Urea nitrogen/Creatinine [Mass ratio] 12.0 mg/mg Normal [facility] Comment on above: Performed By: #### E TH #### [facility] [address] [address] [address] Skylar Ramirez TSHon 08-17-2021 TSH 0.755 uIU/mL Normal 0.430-3.75 0 [facility] Comment on above: Performed By: #### E TH #### [facility] [address] [address] [address] Skylar Ramirez TSH RANGE SEE BELOW Normal [facility] Comment on above: Result Comment: <0.3 4 UIU/ml HYPERTHYROID 0.34-5.60 UIU/ml EUTHYROID >5.60 UIU/ml HYPOTHYROID Performed By: #### E TH #### [facility] [address] [address] [address] Skylar Ramirez Vital Signs Date Time Vital Sign Value Performing Clinician Facility 12-03-2023 16:00-0400 Diastolic blood pressure 59 mm[Hg] CHRIS Sandra Work Phone: [facility] 12-03-2023 16:00-0400 Heart rate 66 /min CHRIS Sandra Work Phone: [facility] 12-03-2023 16:00-0400 Respiratory rate 18 /min CHRIS Sandra Work Phone: [facility] 12-03-2023 16:00-0400 SaO2% (BldA) [Mass fraction] 100 % CHRIS Sandra Work Phone: [facility] 12-03-2023 16:00-0400 Systolic blood pressure 108 mm[Hg] CHRIS Sandra Work Phone: [facility] 12-03-2023 12:49-0400 Body height 162.56 cm CHRIS Sandra Work Phone: [facility] 12-03-2023 12:49-0400 Body temperature 98 [degF] CHRIS Sandra Work Phone: [facility] 12-03-2023 12:49-0400 Body weight 83.46 kg CHRIS Sandra Work Phone: [facility] 09-30-2023 22:58-0400 Diastolic blood pressure 73 mm[Hg] ALLI CINDI [facility] 09-30-2023 22:58-0400 Heart rate 75 /min ALLI CINDI [facility] 09-30-2023 22:58-0400 Mean blood pressure 83 mm[Hg] ALLI CINDI [facility] 09-30-2023 22:58-0400 Respiratory rate 18 /min ALLI CINDI [facility] 09-30-2023 22:58-0400 SaO2% (BldA) [Mass fraction] 99 % ALLI CINDI [facility] 09-30-2023 22:58-0400 Systolic blood pressure 102 mm[Hg] ALLI CINDI [facility] 09-30-2023 21:50-0400 Diastolic blood pressure 73 mm[Hg] ALLI CINDI [facility] 09-30-2023 21:50-0400 Heart rate 82 /min ALLI CINDI [facility] 09-30-2023 21:50-0400 Mean blood pressure 83 mm[Hg] ALLI CINDI [facility] 09-30-2023 21:50-0400 Respiratory rate 18 /min ALLI CINDI [facility] 09-30-2023 21:50-0400 SaO2% (BldA) [Mass fraction] 97 % ALLI CINDI [facility] 09-30-2023 21:50-0400 Systolic blood pressure 104 mm[Hg] ALLI CINDI [facility] 09-30-2023 20:53-0400 Diastolic blood pressure 83 mm[Hg] ALLI CINDI [facility] 09-30-2023 20:53-0400 Heart rate 85 /min ALLI CINDI [facility] 09-30-2023 20:53-0400 Mean blood pressure 90 mm[Hg] ALLI CINDI [facility] 09-30-2023 20:53-0400 Respiratory rate 18 /min ALLI CINDI [facility] 09-30-2023 20:53-0400 SaO2% (BldA) [Mass fraction] 98 % ALLI CINDI [facility] 09-30-2023 20:53-0400 Systolic blood pressure 105 mm[Hg] ALLI CINDI [facility] 09-30-2023 19:41-0400 Body temperature 98.42 [degF] ALLI CINDI [facility] 09-30-2023 19:41-0400 Heart rate 88 /min ALLI CINDI [facility] 08-27-2023 09:30-0400 Heart rate 63 /min Edi Quiñones [facility] 08-27-2023 09:30-0400 Respiratory rate 16 /min Edi Ishmael [facility] 08-27-2023 09:30-0400 SaO2% (BldA) [Mass fraction] 100 % Edi Ishmael [facility] 08-27-2023 09:00-0400 Diastolic blood pressure 53 mm[Hg] Edi Ishmael [facility] 08-27-2023 09:00-0400 Heart rate 58 /min Edi Ishmael [facility] 08-27-2023 09:00-0400 Mean blood pressure 74 mm[Hg] Edi Ishmael [facility] 08-27-2023 09:00-0400 SaO2% (BldA) [Mass fraction] 98 % Edi Ishmael [facility] 08-27-2023 09:00-0400 Systolic blood pressure 115 mm[Hg] Edi Ishmael [facility] 08-27-2023 08:00-0400 Diastolic blood pressure 68 mm[Hg] Edi Ishmael [facility] 08-27-2023 08:00-0400 Heart rate 70 /min Edi Ishmael [facility] 08-27-2023 08:00-0400 Mean blood pressure 86 mm[Hg] Edi Ishmael [facility] 08-27-2023 08:00-0400 Systolic blood pressure 122 mm[Hg] Edi Ishmael [facility] 08-27-2023 07:30-0400 Diastolic blood pressure 66 mm[Hg] Edi Ishmael [facility] 08-27-2023 07:30-0400 Mean blood pressure 84 mm[Hg] Edi Ishmael [facility] 08-27-2023 07:30-0400 Systolic blood pressure 120 mm[Hg] Edi Quiñones [facility] 08-27-2023 06:54-0400 Body temperature 98.42 [degF] Edi Quiñones [facility] 08-27-2023 06:54-0400 Heart rate 71 /min Edi Quiñones [facility] 08-27-2023 06:54-0400 Respiratory rate 18 /min Edi Quiñones [facility] 08-15-2023 10:16-0400 Body temperature 98.24 [degF] Refugio Barriga [facility] 08-15-2023 10:16-0400 Diastolic blood pressure 72 mm[Hg] Refugio Barriga [facility] 08-15-2023 10:16-0400 Heart rate 88 /min Refugio Barriga [facility] 08-15-2023 10:16-0400 Systolic blood pressure 107 mm[Hg] Refugio Barriga [facility] 08-11-2023 03:34-0400 Diastolic blood pressure 60 mm[Hg] Jessi Avina MD [facility] Phone[facility] 08-11-2023 03:34-0400 Heart rate 90 /min Jessi Avina MD Work Phone: [employer] 08-11-2023 03:34-0400 Respiratory rate 18 /min Jessi Avina MD Work Phone: [employer] 08-11-2023 03:34-0400 SaO2% (BldA) [Mass fraction] 100 % Jessi [facility]ina MD [facility] Phone[facility] 08-11-2023 03:34-0400 Systolic blood pressure 123 mm[Hg] Jessi Avina MD Work Phone: [facility] 08-10-2023 21:17-0400 Body temperature 99 [degF] Jessi Avina MD Work Phone: [facility] 08-03-2023 21:54-0400 Body temperature 97.9 [degF] DO Kim Slack Work Phone: [facility] 08-03-2023 21:54-0400 Diastolic blood pressure 64 mm[Hg] DO Kim Slack Work Phone: [facility] 08-03-2023 21:54-0400 Heart rate 72 /min DO Kim Slack Work Phone: [facility] 08-03-2023 21:54-0400 Respiratory rate 18 /min DO Kim Slack Work Phone: [facility] 08-03-2023 21:54-0400 SaO2% (BldA) [Mass fraction] 100 % DO Kim Slack Work Phone: [facility] 08-03-2023 21:54-0400 Systolic blood pressure 114 mm[Hg] DO Kim Slack Work Phone: [facility] 08-03-2023 20:12-0400 Body height 165.1 cm DO Kim Slack Work Phone: [facility] 08-03-2023 20:12-0400 Body weight 93.7 kg DO Kim Slack Work Phone: [facility] 07-12-2022 07:30-0400 Body temperature 97.7 [degF] MD Brionna See Work Phone: [facility] 07-12-2022 07:30-0400 Diastolic blood pressure 67 mm[Hg] MD Brionna See Work Phone: [facility] 07-12-2022 07:30-0400 Heart rate 63 /min MD Brionna See Work Phone: [facility] 07-12-2022 07:30-0400 SaO2% (BldA) [Mass fraction] 98 % MD Brionna See Work Phone: [facility] 07-12-2022 07:30-0400 Systolic blood pressure 119 mm[Hg] MD Brionna See Work Phone: [facility] 07-11-2022 20:12-0400 Respiratory rate 16 /min MD Brionna See Work Phone: [facility] 07-11-2022 15:25-0400 Body height 162.56 cm MD Brionna See Work Phone: [facility] 07-10-2022 09:00-0400 Body weight 80.28 kg MD Brionna See Work Phone: [facility] 04-11-2022 12:01-0500 Body temperature 98.42 [degF] Nevaeh Leahy [facility] 04-11-2022 12:01-0500 bodymassindex 1.18 Nevaeh Leahy [facility] Comment on above: Result Comment: ^~:![facility] 04-11-2022 12:01-0500 Diastolic blood pressure 87 mm[Hg] Nevaeh Leahy [facility] 04-11-2022 12:01-0500 Heart rate 90 /min Nevaeh Leahy [facility] 04-11-2022 12:01-0500 Height/Length Percentile 76.91 Nevaeh Leahy [facility] Comment on above: Result Comment: ^~:!Percentile Source -[facility] 04-11-2022 12:01-0500 Height/Length Z-Score 0.74 Nevaeh Leahy [facility] Comment on above: Result Comment: ^~:![facility] 04-11-2022 12:01-0500 Respiratory rate 20 /min Nevaeh Leahy [facility] 04-11-2022 12:01-0500 SaO2% (BldA) [Mass fraction] 100 % Nevaeh Leahy [facility] 04-11-2022 12:01-0500 Systolic blood pressure 137 mm[Hg] Nevaeh Leahy [facility] 04-11-2022 12:01-0500 weight 1.38 Nevaeh Leahy [facility] Comment on above: Result Comment: ^~:![employer] [facility] 04-11-2022 12:01-0500 Weight Percentile 91.69 % Nevaeh Leahy [facility] Comment on above: Result Comment: ^~:!Percentile Source -[facility] [place] 03-23-2022 01:05-0500 Body temperature 98.06 [degF] Dino Landerosen [facility] 03-23-2022 01:05-0500 bodymassindex 1.47 Lissetten Letien [facility] Comment on above: Result Comment: ^~:![facility] [facility] 03-23-2022 01:05-0500 Diastolic blood pressure 79 mm[Hg] Lissetten Dokken [facility] 03-23-2022 01:05-0500 Heart rate 83 /min Staninn Dokken [facility] 03-23-2022 01:05-0500 Height/Length Percentile 42.45 Staninn Dokken [facility] Comment on above: Result Comment: ^~:!Percentile Source -[facility] [place] 03-23-2022 01:05-0500 Height/Length Z-Score -0.19 Sujeyylinn Dokken [facility] Comment on above: Result Comment: ^~:![facility] 03-23-2022 01:05-0500 Respiratory rate 16 /min Dino Mccollum [facility] 03-23-2022 01:05-0500 SaO2% (BldA) [Mass fraction] 99 % Dino Mccollum [facility] 03-23-2022 01:05-0500 Systolic blood pressure 117 mm[Hg] Dino Mccollum [facility] 03-23-2022 01:05-0500 weight 1.42 Dino Mccollum [facility] Comment on above: Result Comment: ^~:![facility] 03-23-2022 01:05-0500 Weight Percentile 92.21 % Dino Mccollum [facility] Comment on above: Result Comment: ^~:!Percentile Source -[facility] [place] Encounters Encounter Date Encounter Type Care Provider Facility Start: 06-20-2024 ambulatory ROCAEL MACK Fa cility:[facility] Start: 01-29-2024 End: 01-29-2024 ambulatory MOTAPRAWIRA Not Available Start: 01-24-2024 End: 01-24-2024 flow sheet [facility] Comment on above: GA: [id number] Start: 01-24-2024 End: 01-24-2024 ambulatory MOTAPRAWIRA Not Available Start: 12-24-2023 End: 12-24-2023 ambulatory ROCAEL MACK Facility:[facility] Start: 12-03-2023 End: 12-03-2023 Emergency department patient visit CHRIS Sandra Work Phone: [facility] Work Phone: Start: 09-30-2023 End: 09-30-2023 Emergency department patient visit DO Dino Mccollum [facility] Start: 09-17-2023 End: 09-17-2023 ambulatory MOTAPRAWIRA Not Available Start: 09-13-2023 End: 09-13-2023 ambulatory BAIRON Mckenna NATAPRAWIRA Not Available Start: 08-29-2023 End: 08-29-2023 ambulatory ROCAEL CARSON Leah CINDI Facility:[facility] Merari guzman Start: 08-27-2023 End: 08-27-2023 Emergency department patient visit Edi Quiñones [facility] Start: 08-15-2023 End: 08-15-2023 ambulatory Jewell Drivre Facility:[facility] Start: 08-15-2023 End: 08-15-2023 Patient encounter procedure Refugio Barriga [facility] Start: 08-14-2023 Telephone encounter Ashley Dietz [facility] Acute Care Surgery Start: 08-13-2023 End: 08-13-2023 ambulatory CONSULTING NETWORKING ENGINEER ALLI A CINDI Facility:[facility] Merari guzman Start: 08-11-2023 End: 08-11-2023 Emergency department patient visit UNKNOWN PROVIDER Facility:[facility] Start: 08-11-2023 End: 08-11-2023 Emergency department patient visit Jessi Avina MD Work Phone: [facility] Emergency Medicine Comment on above: Abdominal pain (Pt h ad abd sx 1 week ago and states she is now having sharp pains near the site with lots of swelling and some redness. Pt had sx here. ) Start: 08-09-2023 ambulatory Iona Hidalgo RN [facility] Comment on above: Post-op Symptoms Start: 08-09-2023 End: 08-09-2023 Emergency department patient visit DO Kim Schwartz Work Phone: [facility] Work Phone: Start: 08-04-2023 E.D. Visit Francisco [place] [facility] Comment on above: Trauma/complex Medic al Situation Start: 08-04-2023 End: 08-08-2023 Evaluation and management of inpatient STARR HOOKS Facility:[facility] Start: 08-04-2023 End: 08-04-2023 ambulatory UNKNOWN PROVIDER Facility:[facility] Start: 08-03-2023 End: 08-03-2023 Emergency department patient visit DO Kim Schwartz Work Phone: [facility] Work Phone: Start: 06-20-2023 End: 06-20-2023 ambulatory CONSULTING NETWORKING ENGINEER ALLI MACK Facility:[facility] Start: 05-23-2023 End: 05-23-2023 ambulatory CONSULTING NETWORKING ENGINEER ALLI A CINDI Facility:[facility] Start: 05-18-2023 ambulatory Edi Ishmael Facility:[facility] Start: 08-03-2022 End: 08-11-2022 Pre-admission assessment Dunia Cristina [facility] Start: 07-20-2022 End: 07-20-2022 Patient encounter procedure Dunia Cristina [facility] Start: 07-19-2022 End: 07-19-2022 Lab Drop off Dunia Cristina [facility] Start: 07-09-2022 End: 07-12-2022 Evaluation and management of inpatient MD Brionna See Work Phone: [address] Work Phone: Start: 07-09-2022 End: 07-10-[address] BRIONNA SEE . Facility: Start: 04-11-2022 End: 04-11-2022 Emergency department patient visit Nevaeh Leahy [facility] Start: 03-23-2022 End: 03-23-2022 Emergency department patient visit Dino Mccollum [facility] Start: 02-28-2022 End: 02-28-2022 ambulatory Jack Khan Other [employer] Other Start: 02-28-2022 [facility] visit new patient Jack Khan [facility] Start: 02-24-2022 End: 02-24-2022 [...] CT of thorax with contrast DO Kim Matyever Work Phone: Sigmoid colectomy Refugio [facility] Plan of Treatment Date Care Activity Detail Author Start: 2053 Shingles (RZV) Vacci ne (1 of 2) Shingles (RZV) Vaccine (1 of 2) [facility] Start: 02-13-2026 Tetanus vaccination Tetanus (T d or Tdap) [facility] Start: 02-29-2024 End: 02-29-2024 ambulatory 02/29/2024 10:30 AM EST Initial [facility] [address] [place] [id number] Iveth Pemberton, DO [address] [place] [address] [facility] Start: 01-29-2024 End: 01-29-2024 Professional / ancillary services management 01/29/2024 8:45 AM EDT Ancillary Procedure [facility] [address] [place] [id number] [facility] Start: 01-24-2024 End: 01-23-2025 Bacteria identified in Urine by Culture Urine culture Microbiology Routine Encounter for supervision of normal first in first trimester Expected: 01/24/2024 (Approximate), Expires: 01/23/2025 [facility] Comment on above: Expected: 01/24/2024 (Approximate), Expires: 01/23/2025 Start: 01-24-2024 End: 01-23-2025 Blood type and Indirect antibody screen panel - Blood Type and screen Lab Routine Encounter for supervision of normal first in first trimester Expected: 01/24/2024 (Approximate), Expires: 01/23/2025 [facility] Comment on above: Expected: 01/24/2024 (Approximate), Expires: 01/23/2025 Start: 01-24-2024 End: 01-23-2025 CBC W Auto Differential panel - Blood CBC and differential Lab Routine Encounter for supervision of normal first in first trimester Expected: 01/24/2024 (Approximate), Expires: 01/23/2025 [facility] Comment on above: Expected: 01/24/2024 (Approximate), Expires: 01/23/2025 Start: 01-24-2024 End: 01-23-2025 Drugs of abuse panel - Urine by Screen method Rapid drug screen, urine Lab Routine Encounter for supervision of normal first in first trimester Encounter for drug screening Expected: 01/24/2024 (Approximate), Expires: 01/23/2025 [facility] Comment on above: Expected: 01/24/2024 (Approximate), Expires: 01/23/2025 Start: 01-24-2024 End: 01-23-2025 Hepatitis B virus surface Ag [Presence] in Serum or Plasma by Immunoassay Hepatitis B surface antigen Lab Routine Encounter for supervision of normal first in first trimester Expected: 01/24/2024 (Approximate), Expires: 01/23/2025 [facility] Comment on above: Expected: 01/24/2024 (Approximate), Expires: 01/23/2025 Start: 01-24-2024 End: 01-23-2025 Hepatitis C virus Ab [Presence] in Serum or Plasma by Immunoassay Hepatitis C antibody Lab Routine Encounter for supervision of normal first in first trimester Expected: 01/24/2024 (Approximate), Expires: 01/23/2025 [facility] Comment on above: Expected: 01/24/2024 (Approximate), Expires: 01/23/2025 Start: 01-24-2024 End: 01-23-2025 HIV-1/HIV-2 antigen/antibody combination immunoassay HIV-1 and HIV-2 antibodies Lab Routine Encounter for supervision of normal first in first trimester Expected: 01/24/2024 (Approximate), Expires: 01/23/2025 [facility] Comment on above: Expected: 01/24/2024 (Approximate), Expires: 01/23/2025 Start: 01-24-2024 End: 01-23-2025 Reagin Ab [Presence] in Serum by RPR RPR Lab Routine Encounter for supervision of normal first in first trimester Expected: 01/24/2024 (Approximate), Expires: 01/23/2025 [facility] Comment on above: Expected: 01/24/2024 (Approximate), Expires: 01/23/2025 Start: 01-24-2024 End: 01-23-2025 Rubella antibody, IgG Rubella antibody, IgG Lab Routine Encounter for supervision of normal first in first trimester Expected: 01/24/2024 (Approximate), Expires: 01/23/2025 [facility] Comment on above: Expected: 01/24/2024 (Approximate), Expires: 01/23/2025 Start: 01-24-2024 End: 01-23-2025 Urinalysis complete panel - Urine Urinalysis with microscopic Lab Routine Encounter for supervision of normal first in first trimester Expected: 01/24/2024 (Approximate), Expires: 01/23/2025 [facility] Work Phone: Comment on above: Expected: 01/24/2024 (Approximate), Expires: 01/23/2025 Start: 12-03-2023 Bacteria identified in Urine by Culture [facility] Start: 12-03-2023 [facility] Start: 08-03-2023 [facility] Start: 07-12-2022 [facility] Start: 07-09-2022 Referral to Swimming Pool Installer [facility] Start: 07-09-2022 Sleep disorder assessment [facility] Start: 07-09-2022 Hospital admission [facility] Start: 2022 Hepatitis A (HAV) Vaccine (optional [...] (Optional,16-23 years) [facility] Start: 2014 Vaccination for marzena n papillomavirus HPV Vaccine (1 - 2-dose series) [facility] Start: 02-13-2005 Hepatitis B vaccination Hepati tis B (HBV) Vaccine (2 of 3 - 3-dose series) [facility] Start: 2003 COVID-19 Vaccine (#1) COVID-19 Vacci ne (#1) [facility] Start: 2003 Hepatitis B vaccination Hepati tis B (HBV) Vaccine (1 of 3 - 3-dose series) [facility] CT Abdomen and Pelvi s W contrast IV CT ABD/PELVIS ED I/V ARIA W/ CONTRAST Imaging STAT 08/11/2023 2:38 AM EDT [facility] fentaNYL [Mass/volum e] in Serum or Plasma [facility] Norfentanyl [Mass/volume] in Serum or Plasma [facility] Patient Education [facility] Work Phone: Patient referral [facility] Work Phone: End: 08-10-2023 Urnls dip stick/tablet rgnt auto w/o microscopy [facility] Work Phone: Comment on above: One time, now for 1 Occurrences starting 08/10/2023 until 08/10/2023 One time for 1 Occur rences starting 08/10/2023 until 08/10/2023 Immunizations Immunization Date Immunization Notes Care Provider Kilo gracia 05-23-2023 influenza, injectabl e, quadrivalent, preservative free Ashley Jorgeanthony [facility] 07-11-2022 influenza virus vacc ine, unspecified formulation Refugio Barriga [facility] 07-11-2022 influenza, injectabl e, quadrivalent, preservative free MD Brionna See Work Phone: [facility] 08-16-2016 HPV, unspecified formulation Refugio Barriga [facility] 08-16-2016 Human Papillomavirus 9-valent vaccine Ashley J Luis [facility] 04-18-2016 HPV, unspecified formulation Refugio Barriga [facility] 04-18-2016 Human Papillomavirus 9-valent vaccine Ashley [facility] 02-14-2016 HPV, unspecified formulation [email or web address] [facility] 02-14-2016 Human Papillomavirus 9-valent vaccine [facility] influenza virus vacc ine, unspecified formulation [email or web address] [facility] 02-14-2016 influenza, injectabl e, quadrivalent, preservative free [facility] 02-14-2016 meningococcal ACWY vaccine, unspecified formulation [email or web address] [facility] 02-14-2016 meningococcal oligosaccharide (groups A, C, Y and W-135) diphtheria toxoid conjugate vaccine (MCV4O) [facility] 02-14-2016 tetanus toxoid, redu kayla diphtheria toxoid, and acellular pertussis vaccine, adsorbed [facility] 02-17-2014 influenza virus vacc ine, unspecified formulation [email or web address] [facility] 03-15-2009 influenza virus vacc ine, H1N1, live [email or web address] [facility] 03-15-2009 novel Influenza-H1N1 -09, live virus for nasal administration [facility] 02-11-2009 influenza virus vacc ine, H1N1, live [email or web address] [facility] 02-11-2009 novel Influenza-H1N1 -09, live virus for nasal administration [facility] 08-14-2007 DTaP, unspecified formulation [email or web address] [facility] 08-14-2007 hepatitis A vaccine, unspecified formulation [email or web address] [facility] 08-14-2007 hepatitis B vaccine, pediatric or pediatric/adolescent dosage [email or web address] [facility] 08-14-2007 measles, mumps and rubella virus vaccine Refugio Buccaneer [facility] 08-14-2007 varicella virus vaccine Will norman [employer] [facility] 01-09-2007 DTaP, unspecified formulation [employer] [facility] 12-04-2006 DTaP, unspecified formulation [email or web address] [facility] 12-04-2006 hepatitis A vaccine, unspecified formulation [email or web address] [facility] 12-04-2006 hepatitis B vaccine, pediatric or pediatric/adolescent dosage [email or web address] [facility] 12-04-2006 poliovirus vaccine, unspecified formulation [email or web address] [facility] 01-16-2005 diphtheria, tetanus toxoids and acellular pertussis vaccine [facility] 01-16-2005 haemophilus influenz ae type b conjugate and Hepatitis B vaccine [facility] 01-16-2005 measles, mumps and rubella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 DATE CREATED AUTHOR AUTHOR'S ORGANIZ ATION 12/07/2023 [facility] DATE CREATED AUTHOR AUTHOR'S ORGANIZ ATION 12/25/2023 [facility] [employer] [facility] DATE CREATED AUTHOR AUTHOR'S ORGANIZ ATION 01/31/2024 [facility] EPIC Goals (unrecognized section and content) Goals may [...] Tolbert, BRENDON)0443 (IV Stop - Provider: Denise Tolbert RN) ondansetron (ZOFRAN) 4 MG/2ML injection (COMPLETED) 4 [...] BE BASED ON THE PRIMARY CLINICAL RECORDS. Handseeing Information [facility]. provides no warranty or guarantee of the accuracy or completeness of information in this document.
== END 2024-02-07 13:20 | disposition left against medical advice (07) ==
LOC: ER 13:30
PROVIDERS: Emergency Provider Emergency Medicine
DX: Z53.21 Procedure and treatment not carried out due to patient leaving prior to being seen by health care provider (principal)

== ENCOUNTER 2024-02-12 12:25 | Emergency (ER) | payer OTHER, SELFPAY ==
[2024-02-12 12:31] VITALS: BP 130/92; PULSE 75; TEMP 37.1; O2SAT 98; BMI 28.8
--- NOTE | 2024-02-12 12:36 | ED.NAVMDI1 ---
HPI - Nausea/Vomiting/Diarrhea General Chief complaint: Nausea/Vomiting/Diarrhea Stated complaint: VOMITING Time Seen by Provider: 02/12/24 12:31 Source: patient Mode of arrival: walk-in Limitations: no limitations History of Present Illness HPI Narrative: This patient is here with ongoing nausea and vomiting not responding to outpatient management. She is . She also had some vaginal bleeding earlier. She is not passing clots and the bleeding is stopped after very short time. She had a routine ultrasound 2 weeks ago, at that time there was confirmation of intrauterine with cardiac activity noted. She does not have any abdominal pain or back or shoulder pain at this time. They advised her to come to the hospital because she has not been able to take adequate fluids. This is her first . She has not decided which facility to have delivery yet. She does not have any other symptoms such as chest pain shortness of breath headache neck pain are all negative. Related Data Home Medications ?Medication ?Instructions ?Recorded ?Confirmed escitalopram oxalate 10 mg tablet 20 mg PO DAILY 01/18/23 02/12/24 trazodone 50 mg tablet 50 mg PO BEDTIME 06/17/23 01/19/24 docusate sodium 100 mg capsule 100 mg PO DAILY 08/09/23 01/19/24 ondansetron 4 mg disintegrating 4 mg PO Q8H PRN nausea and vomiting 02/12/24 02/12/24 tablet promethazine 25 mg tablet 25 mg PO Q6H 02/12/24 02/12/24 Allergies Allergy/AdvReac Type Severity Reaction Status Date / Time No Known Drug Allergies Allergy Verified 01/19/24 23:11 [facility] Medical History (Updated 02/12/24 @ 15:23 by Gregg Lujan MD) Colon perforation ?K63.1 - Perforation of intestine (nontraumatic) (ICD-10) Social History Smoking status: Current every day smoker Little interest or pleasure in doing things: not at all Feeling down, depressed, or hopeless: not at all Exam Narrative Exam Narrative: Awake alert pleasant no apparent distress. Her vital signs stable and she is afebrile. There is no evidence of tachycardia or hypotension. Her skin is warm and dry there is no clamminess pallor or evidence of anemia or icterus. She has no respiratory distress no cough congestion stridor or wheezing. Her abdominal exam is benign with no guarding rebound rigidity or peritoneal findings. No right upper quadrant pain or tenderness to McBurney's point. Constitutional Vital Signs, click to edit/add: Last Vital Signs Temp 98.8 F 02/12/24 12:31 Pulse 75 02/12/24 12:31 Resp 16 02/12/24 12:31 BP 130/92 H 02/12/24 12:31 Pulse Ox 98 02/12/24 12:31 O2 Del Method Room Air 02/12/24 12:31 Course Vital Signs Vital signs: Vital Signs Temperature 98.8 F 02/12/24 12:31 Pulse Rate 75 02/12/24 12:31 Respiratory Rate 16 02/12/24 12:31 Blood Pressure 130/92 H 02/12/24 12:31 Pulse Oximetry 98 02/12/24 12:31 Oxygen Delivery Method Room Air 02/12/24 12:31 Temperature 98.8 F 02/12/24 12:31 Pulse Rate 75 02/12/24 12:31 Respiratory Rate 16 02/12/24 12:31 Blood Pressure 130/92 H 02/12/24 12:31 Pulse Oximetry 98 02/12/24 12:31 Oxygen Delivery Method Room Air 02/12/24 12:31 MDM - Nausea/Vomiting/Diarrhea MDM Narrative Medical decision making narrative: This patient has previously had confirmatory ultrasound confirming intrauterine . She has no further bleeding. Her vital signs are stable. Her urine is concentrated so she was given 2 L of fluid here. The preliminary urinalysis suggest UTI so we will start her on Macrobid and she will call us in 4 days for the culture results. She feels better. Lab Data Labs: Lab Results 02/12/24 02/12/24 Range/Units 12:38 12:51 WBC 11.4 H (4.0-11.0) 10^3/uL RBC 3.84 L (4.20-5.40) 10^6/uL Hgb 12.5 (12.0-16.0) g/dL Hct 33.6 L (36.0-48.0) % MCV 87.5 (81.0-99.0) fL MCH 32.6 (26.7-34.0) pg MCHC 37.2 H (29.9-35.2) g/dL RDW 13.0 (11.0-15.0) % Plt Count 274 (150-450) 10^3/uL MPV 11.0 (9.5-13.5) fL Neut % (Auto) 73.0 (43.0-75.0) % Lymph % (Auto) 20.4 L (20.5-60.0) % Mcintosh % (Auto) 5.3 (1.7-12.0) % Eos % (Auto) 0.5 L (0.9-7.0) % Baso % (Auto) 0.5 (0.2-2.0) % Neut # (Auto) 8.3 H (1.4-6.5) 10^3/uL Lymph # (Auto) 2.3 (1.2-3.8) 10^3/uL Mcintosh # (Auto) 0.6 (0.3-0.8) 10^3/uL Eos # (Auto) 0.1 (0.0-0.7) 10^3/uL Baso # (Auto) 0.1 (0.0-0.1) 10^3/uL Abs Immat Gran (auto) 0.03 (0.00-0.03) 10^3/uL Imm/Tot Granulo (auto) 0.3 (0.0-0.5) % Sodium 139 (136-145) mmol/L Potassium 3.4 L (3.5-5.1) mmol/L Chloride 103 (98-107) mmol/L Carbon Dioxide 22.4 (21.0-32.0) mmol/L Anion Gap 17.0 BUN 8.0 (7.0-18.0) mg/dL Creatinine 0.68 (0.55-1.02) mg/dL Est GFR ( Amer) >60 (>=60 mL/min/1.73m^2) Est GFR (Non-Af Amer) >60 (>=60 mL/min/1.73m^2) BUN/Creatinine Ratio 11.8 Glucose 113 H (74-106) mg/dL Calcium 9.5 (8.5-10.1) mg/dL Total Bilirubin 1.7 H (0.2-1.0) mg/dL AST 13 L (15-37) U/L ALT 24 (14-59) U/L Alkaline Phosphatase 47 (46-116) U/L Total Protein 7.1 (6.4-8.2) g/dL Albumin 3.7 (3.4-5.0) g/dL Globulin 3.4 g/dL Albumin/Globulin Ratio 1.1 HCG, Quant [id number] mIU/mL Urine Color Yellow (YELLOW) Urine Clarity Sl cloudy (CLEAR) Urine pH 6.0 (5.0-9.0) Ur Specific [place] >=1.030 A (1.005-1.025) Urine Protein 30 A (NEG/TRACE) mg/dL Urine Glucose (UA) Negative (NEGATIVE) mg/dL Urine Ketones >=80 A (NEGATIVE) mg/dL Urine Occult Blood Negative (NEGATIVE) Urine Nitrite Negative (NEGATIVE) Urine Bilirubin Small A (NEGATIVE) Urine Urobilinogen 4.0 A (0.2-1.0) EU/dL Ur Leukocyte Esterase Trace A (NEGATIVE) Urine RBC 2-5 A (0-2) #/HPF Urine WBC 5-10 A (NONE SEEN) #/HPF Ur Squamous Epith Cells Moderate A (NONE/RARE) #/LPF Urine Crystals None seen (None Seen) #/HPF Urine Bacteria Large A (NONE SEEN) #/HPF Urine Casts None seen (NONE SEEN) #/LPF Urine Mucus Large A (NONE SEEN) Ur Culture Indicated? Yes Discharge Plan Discharge Chief Complaint: Nausea/Vomiting/Diarrhea Clinical Impression: Volume depletion Patient Disposition: Home, Self-Care Time of Disposition Decision: 15:23 Prescriptions / Home Meds: No Action escitalopram oxalate 10 mg tablet 20 mg PO DAILY trazodone 50 mg tablet 50 mg PO BEDTIME docusate sodium 100 mg capsule 100 mg PO DAILY ondansetron 4 mg tablet,disintegrating 4 mg PO Q8H PRN (Reason: nausea and vomiting) promethazine 25 mg tablet 25 mg PO Q6H Print Language: Moldovan Additional Instructions: Start bid, call for final culture result Referrals: Physician,Non-Staff, MD [Primary Care Provider] - 1 week
[2024-02-12 12:47] LABS: Bilirubin Urine SMALL (NEGATIVE); Blood Urine NEGATIVE (NEGATIVE); Clarity Urine SL CLOUDY (CLEAR); Color Urine YELLOW (YELLOW); Glucose Urine UA NEGATIVE (NEGATIVE); Ketones Urine >=80 mg/dL (NEGATIVE); Leukocyte Esterase Urine TRACE (NEGATIVE); Nitrite Urine NEGATIVE (NEGATIVE); Protein Urine 30 mg/dL (NEG/TRACE); Specific Gravity Urine >=1.030 (1.005-1.025)
[2024-02-12 12:52] LABS: Urine Microscopic Indicated YES
[2024-02-12] MEDS: 0.9 % SODIUM CHLORIDE 1,000 ML 999 ML IV (12:57)
[2024-02-12 12:59] LABS: Basophils Absolute Auto 0.1 10^3/uL (0.0-0.1); Basophils Percent Auto 0.5 % (0.2-2.0); Eosinophils Absolute Auto 0.1 10^3/uL (0.0-0.7); Eosinophils Percent Auto 0.5 % (0.9-7.0); Hematocrit 33.6 % (36.0-48.0); Hemoglobin 12.5 g/dL (12.0-16.0); Immature Granulocytes Abs Auto 0.03 10^3/uL (0.00-0.03); Immature Granulocytes Pct Auto 0.3 % (0.0-0.5); Lymphocytes Absolute Auto 2.3 10^3/uL (1.2-3.8); Lymphocytes Percent Auto 20.4 % (20.5-60.0); Mean Corpuscular HGB Conc 37.2 g/dL (29.9-35.2); Mean Corpuscular Hemoglobin 32.6 pg (26.7-34.0); Mean Corpuscular Volume 87.5 fL (81.0-99.0); Monocytes Absolute Auto 0.6 10^3/uL (0.3-0.8); Monocytes Percent Auto 5.3 % (1.7-12.0); Neutrophils Absolute Auto 8.3 10^3/uL (1.4-6.5); Platelet Count 274 10^3/uL (150-450); Red Blood Count 3.84 10^6/uL (4.20-5.40); White Blood Count 11.4 10^3/uL (4.0-11.0)
[2024-02-12 13:00] LABS: Bacteria Urine LARGE #/HPF (NONE SEEN); Cast Seen? NONE SEEN #/LPF (NONE SEEN); Crystals Seen? None Seen #/HPF (None Seen); Mucus Urine LARGE (NONE SEEN); Squamous Epithelial Cell Urine MODERATE #/LPF (NONE/RARE); Urine Culture Indicated YES
[2024-02-12 13:16] LABS: Alanine Aminotransferase 24 U/L (14-59); Albumin Globulin Ratio 1.1; Albumin Level 3.7 g/dL (3.4-5.0); Alkaline Phosphatase 47 U/L (46-116); Aspartate Amino Transferase 13 U/L (15-37); BUN Creatinine Ratio 11.8; Bilirubin Total 1.7 mg/dL (0.2-1.0); Calcium 9.5 mg/dL (8.5-10.1); Carbon Dioxide 22.4 mmol/L (21.0-32.0); Chloride 103 mmol/L (98-107); Estimated GFR (African America >60 (>=60 mL/min/1.73m^2); Estimated GFR (Non-African Ame >60 (>=60 mL/min/1.73m^2); Globulin 3.4 g/dL; Glucose 113 mg/dL (74-106); Potassium 3.4 mmol/L (3.5-5.1); Sodium 139 mmol/L (136-145); Total Protein 7.1 g/dL (6.4-8.2)
[2024-02-12 13:39] LABS: HCG Quantitative 158759 mIU/mL
[2024-02-12] MEDS: ONDANSETRON PF 4 MG/2 ML VIAL IV (14:03)
[2024-02-12] MEDS: 0.9 % SODIUM CHLORIDE 1,000 ML 1000 ML IV (15:00)
== END 2024-02-12 15:33 | disposition home or self-care (01) ==
PROVIDERS: Emergency Provider Emergency Medicine Emergency Medical Services
DX: O99.280 Endocrine, nutritional and metabolic diseases complicating pregnancy, unspecified trimester (principal); E86.9 Volume depletion, unspecified; O99.330 Smoking (tobacco) complicating pregnancy, unspecified trimester; F17.200 Nicotine dependence, unspecified, uncomplicated; Z3A.00 Weeks of gestation of pregnancy not specified
CPT/HCPCS: 36415; 80053; 81001; 84702; 85025; 87086; 96361; 96374; 99285; J2405

== ENCOUNTER 2024-04-05 13:14 | Emergency (ER) | payer OTHER, SELFPAY ==
[2024-04-05 13:22] VITALS: BP 111/73; PULSE 89; TEMP 37; O2SAT 98; BMI 28.8
--- OUTSIDE RECORDS SUMMARY | 2024-04-05 13:39 | XMS_ITS | CCD ---
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 By: #### H EPATIC, LIPASE, CBC, BMP #### [facility] [address] Glucose [Mass/volume] in Uri ne by Test stripOrdered By: Aldair Sandra on 12-03-2023 Glucose Test strip (U) [Mass/Vol] 30 mg/dL High Normal [facility] HCG ( test) IA.rapi d Ql (U)Ordered By: Aldair Sandra on 12-03-2023 HCG ( test) Ql (U) Negative [facility] HCG,Urineon 12-03-2023 Beta HCG ( test) Ql (U) Negative Normal [facility] Comment on above: Order Comment: Name Collection Type:: Clean-Voided Midstream Result Comment: PERF ORMED BY: [place] [address] PATHOLOGIST RARE/ENDANGERED SPECIES SPECIALIST ROBERT PRADHAN M.D. Performed By: #### A DDONUARISHI, CG, CUU ####[facility] [place] [address] Hematocrit [Volume Fraction] of Blood by Automated countOrdered By: Aldair Sandra on 12-03-2023 Hematocrit (Bld) [Volume fraction] 40.1 % Normal 34.0-46.4 [facility] Comment on above: Performed By: #### H EPATIC, LIPASE, CBC, BMP #### [facility] [address] [place] [address] Hemoglobin Test strip Ql (U) Ordered By: Aldair Sandra on 12-03-2023 Hemoglobin Ql (U) 3+ High Negative [facility] Hemoglobin [Mass/volume] in BloodOrdered By: Aldair Sandra on 12-03-2023 Hemoglobin (Bld) [Mass/Vol] 13.6 g/dL Normal 11.8-15.4 [facility] Comment on above: Performed By: #### H EPATIC, LIPASE, CBC, BMP #### [facility] [address] Hepatic Panelon 12-03-2023 Albumin [Mass/Vol] 4.3 g/dL Normal 3.5-5.7 [facility] Comment on above: Performed By: #### H EPATIC, LIPASE, CBC, BMP #### [facility] [address] Bilirubin,Indirect 0.7 mg/dL Normal [facility] Comment on above: Performed By: #### H EPATIC, LIPASE, CBC, BMP #### [facility] [address] Bilirubin.indirect [Mass/Vol] 0.10 mg/dL Normal 0.03-0.18 [facility] Comment on above: Performed By: #### H EPATIC, LIPASE, CBC, BMP #### [facility] [address] Hyaline casts LM.LPF (Urine sed) [#/Area]Ordered By: Aldair Sandra on 12-03-2023 Hyaline casts (Urine sed) [#/Area] None seen [LPF] 0-1 [facility] Ketones [Presence] in Urine by Test stripOrdered By: Aldair Sandra on 12-03-2023 Ketones Ql (U) 2+ High Negative [facility] Comment on above: Order Comment: Name Collection Type:: Clean-Voided Midstream Performed By: #### A DDONUARISHI, UHCG, CUU ####[id number] Leukocyte esterase [Presence ] in Urine by Test stripOrdered By: Aldair Sandra on 12-03-2023 Leukocyte esterase Test strip Ql (U) 2+ High Negative [facility] Comment on above: Order Comment: Name Collection Type:: Clean-Voided Midstream Performed By: #### A DDONUAPLUS, UHCG, CUU ####[id number] [address] Leukocytes [#/area] in Urine sediment by Microscopy high power fieldOrdered By: Aldair Sandra on 12-03-2023 WBC LM.HPF (Urine sed) [#/Area] 5-9 [HPF] High 0-4 [facility] Leukocytes [#/volume] correc boris for nucleated erythrocytes in Blood by Automated counOrdered By: Aldair Sandra on 12-03-2023 WBC corrected for nucl RBC Auto (Bld) [#/Vol] 13.8 10*3/uL High 3.8-11.6 [facility] Leukocytes [#/volume] in Blo od by Automated countOrdered By: Aldair Sandra on 12-03-2023 WBC (Bld) [#/Vol] 13.8 10*3/uL High 3.8-11.6 [facility] Comment on above: Performed By: #### H EPATIC, LIPASE, CBC, BMP #### [facility] [address] Lipase [Enzymatic activity/v olume] in Serum or PlasmaOrdered By: Aldair Sandra on 12-03-2023 Lipase [Catalytic activity/Vol] 14.0 U/L Normal 11.0-82.0 [facility] Comment on above: Result Comment: PERF ORMED BY: [place] [address] PATHOLOGIST RARE/ENDANGERED SPECI[employer] SPECIALIST ROBERT PRADHAN M.D. Performed By: #### H EPATIC, LIPASE, CBC, BMP #### [facility] [address] [place] [address] [place] Lymphocytes [#/volume] in Bl ood by Automated countOrdered By: Aldair Sandra on 12-03-2023 Lymphocytes (Bld) [#/Vol] 2.8 10*3/uL Normal 1.00-4.8 [facility] Comment on above: Performed By: #### H EPATIC, LIPASE, CBC, BMP #### [facility] [address] Lymphocytes/100 leukocytes i n Blood by Automated countOrdered By: Aldair Sandra on 12-03-2023 Lymphocytes/100 WBC (Bld) 20.0 % Normal . [facility] Comment on above: Performed By: #### H EPATIC, LIPASE, CBC, BMP #### [facility] [address] [place] [address] MCH [Entitic mass] by Automa boris countOrdered By: Aldair Sandra on 12-03-2023 MCH (RBC) [Entitic mass] 31.5 pg Normal 24.7-34.3 [facility] Comment on above: Performed By: #### H EPATIC, LIPASE, CBC, BMP #### [facility] [address] [place] [address] MCHC Auto (RBC) [Mass/Vol]Or dered By: Aldair Sandra on 12-03-2023 MCHC (RBC) [Mass/Vol] 34.1 g/dL 32.0-35.0 [facility] MCV [Entitic volume] by Auto mated countOrdered By: Aldair Sandra on 12-03-2023 MCV (RBC) [Entitic vol] 92.5 fL Normal 80-100 [facility] Comment on above: Performed By: #### H EPATIC, LIPASE, CBC, BMP #### [facility] [address] [place] [address] Monocyte distribution width [Entitic volume] in Blood by AutomatedOrdered By: Aldair Sandra on 12-03-2023 Monocyte distribution width Auto (Bld) [Entitic vol] 18.17 % 0.00-20.00 [facility] Mucus LM Ql (Urine sed)Order ed By: Aldair Sandra on 12-03-2023 Mucus Ql (Urine sed) 3+ [LPF] Abnormal [facility] Neutrophils [#/volume] in Bl ood by Automated countOrdered By: Aldair Sandra on 12-03-2023 Neutrophils (Bld) [#/Vol] 10.0 10*3/uL High 1.8-7.7 [facility] Comment on above: Performed By: #### H EPATIC, LIPASE, CBC, BMP #### [facility] [address] Nitrite Test strip Ql (U)Ord ered By: Aldair Sandra on 12-03-2023 Nitrite Ql (U) Negative Negative [facility] No Panel InformationOrdered By: Aldair Sandra on 12-03-2023 Estimated GFR (CKD-EPI) > 60.0 mL/Min [facility] Creatinine Clearance (Chem 121.80 [facility] Nucleated erythrocytes [Pres ence] in Blood by Automated countOrdered By: Aldair Sandra on 12-03-2023 Nucleated RBC Auto Ql (Bld) 0.1 /100{WBC} 0-0.5 [facility] Opiates [Presence] in Urine by Screen methodOrdered By: Aldair Sandra on 12-03-2023 Opiates Screen Ql (U) Negative Negative [facility] Phencyclidine Screen Ql (U)O rdered By: Aldair Sandra on 12-03-2023 Phencyclidine Ql (U) Negative Negative [facility] Platelet mean volume [Entiti c volume] in Blood by Automated countOrdered By: Aldair Sandra on 12-03-2023 Platelet mean volume (Bld) [Entitic vol] 10.4 fL Normal 6.3-10.7 [facility] Comment on above: Performed By: #### H EPATIC, LIPASE, CBC, BMP #### [facility] [address] Platelets [#/volume] in Bloo d by Automated countOrdered By: Aldair Sandra on 12-03-2023 Platelets (Bld) [#/Vol] 240 10*3/uL Normal 150-450 [facility] Comment on above: Performed By: #### H EPATIC, LIPASE, CBC, BMP #### [facility] [address] [place] [address] [place] Potassium [Moles/volume] in Serum or PlasmaOrdered By: Aldair Sandra on 12-03-2023 Potassium [Moles/Vol] 3.5 mmol/L Normal 3.5-5.1 [facility] Comment on above: Performed By: #### H EPATIC, LIPASE, CBC, BMP #### [facility] [address] [place] [address] Protein [Mass/volume] in Ser um or PlasmaOrdered By: Aldair Sandra on 12-03-2023 Protein [Mass/Vol] 6.7 g/dL Normal 6.4-8.9 [facility] Comment on above: Performed By: #### H EPATIC, LIPASE, CBC, BMP #### [address] Protein [Mass/volume] in Uri ne by Test stripOrdered By: Aldair Sandra on 12-03-2023 Protein (U) [Mass/Vol] 30 mg/dL High Negative [facility] Comment on above: Order Comment: Name Collection Type:: Clean-Voided Midstream Performed By: #### A DDONUAPLUS, UHCG, CUU ####[address] Serum globulin measurement b y calculation (mass/volume)Ordered By: Aldair Sandra on 12-03-2023 Globulin (S) [Mass/Vol] 2.4 g/dL Normal [facility] Comment on above: Performed By: #### H EPATIC, LIPASE, CBC, BMP #### [address] Serum or plasma albumin/glob ulin mass ratioOrdered By: Aldair Sandra on 12-03-2023 Albumin/Globulin [Mass ratio] 1.8 {ratio} [facility] Comment on above: Performed By: #### H EPATIC, LIPASE, CBC, BMP #### [address] Serum or plasma anion gap de terminationOrdered By: Aldair Sandra on 12-03-2023 Anion gap [Moles/Vol] 15.1 mmol/L High 6.0-15.0 [facility] Comment on above: Performed By: #### H EPATIC, LIPASE, CBC, BMP #### [address] Serum or plasma non-glucuron idated bilirubin measurement (mass/volume)Ordered By: Aldair Sandra on 12-03-2023 Bilirubin.indirect [Mass/Vol] 0.7 mg/dL [facility] Sodium [Moles/volume] in Ser um or PlasmaOrdered By: Aldair Sandra on 12-03-2023 Sodium [Moles/Vol] 138 mmol/L Normal 136-145 [facility] Comment on above: Performed By: #### H EPATIC, LIPASE, CBC, BMP #### [address] Specific gravity Test strip (U) [Rel density]Ordered By: Aldair Sandra on 12-03-2023 Specific gravity (U) [Rel density] 1.034 High 1.001-1.03 0 [facility] Urea nitrogen [Mass/volume] in Serum or PlasmaOrdered By: Aldair Sandra on 12-03-2023 Urea nitrogen [Mass/Vol] 12 mg/dL Normal 7-25 [facility] Comment on above: Performed By: #### H EPATIC, LIPASE, CBC, BMP #### [address] Urine Cultureon 12-03-2023 Bacteria identified Cx Nom (U) 20,000 colonies/ml mixed bacterial skin contaminants 2 Days PERFORMED BY: [place] [address] PATHOLOGIST RARE/ENDANGERED SPECIES SPECIALIST ROBERT PRADHAN M.D. Normal [facility] Comment on above: Performed By: #### A HAMIDA AVILA, CUU ####[address] Urine appearanceOrdered By: Aldair Sandra on 12-03-2023 Appearance (U) Cloudy Critically abnormal Clear [facility] Comment on above: Order Comment: Name Collection Type:: Clean-Voided Midstream Performed By: #### A HAMIDA AVILA, CUU ####[address] Urobilinogen Test strip (U) [Mass/Vol]Ordered By: Aldair Sandra on 12-03-2023 Urobilinogen (U) [Mass/Vol] 2 mg/dL High Normal [facility] pH of Urine by Test stripOrd ered By: Aldair Sandra on 12-03-2023 pH (U) 5.5 [pH] Normal 5.0-9.0 [facility] Comment on above: Order Comment: Name Collection Type:: Clean-Voided Midstream Performed By: #### A MARGARITA, UHCG, CUU ####[id number] Coding Summary.on 10-03-2023 Coding Summary. BDCRMavx43UFb1bQw+PG hlYWQ+ HA4RCIMkC16nxOCqgL9cL3ABBV yNNuxfWCMRXVeEPoPlhzWbPH9n aXNjZXJu IC8+OW8dFCUgSjbrzEStw0Z8mZ H2K04wsc2vQWecqGT0QKOkTtGv djnfe6uneRk1YWgqIooaFiLd AQRdyU12SZA2jS08Tt54oSRneJ Mug1flsNo4OiZdSCXxVYU8lEka BCrsx6BpBHCoV70zuJLwn6N1 RSMyvUwopJOmVtWjqSP3aD2vUO jgmhpjo6nkvbgcPse1zo70cVJs z6O0kQY3T9DvlmJ4DWOfgWUj OjipwIGNaQ4oxyfbk6puhlkeRi EjBUGgYAh6TKp4GDQlmXnmOwQj UG72AWU5WZSmzkSqZ5GwWTGv lJenRzG3m5T4Xd9OB3MUUqyyU5 VNTUFSWTwvdGQ+WT56nk74H5Bl BechYjy9ZENiFTS7tKE6nW5j NUYaURiyf3L2fHA0O7QmvyOoru 1fq3vzTBFcPLrkA58vsZUbj6F2 BTPcoID1QZHpmRulEvHzzG05 Oyc+OXGaxQklj8OmDlpzr1bco3 khnTc3WkbqGAVoupLqnActSGK2 f4CxBg0jCPHyxEB0mTN6bV2g WvUbExP1LBchN473HqLsfAHcQf xoY94eM7YhnPC+PGBrBqn1GDHn uNzrIG9fO0TcRWKlzwrikBIk vQkfZZ9jQUAatvrnLBYuyE4pNE BxH5m6IsYqBsU0QBfoJ9GxFHRt qhjwLf84qU8jDkWkCbB9FZxl J7XltzO4NIZdaRVqTXvwEGX5B0 7mg2R1FDOfAJTuEQE1lYG2jF2j bGlnbjogbGVmdDsgdmVydGlj XBviZTqsI140EQOxsLrcMuPrCR luZyBEYXRlOiAgMDYvMTkvMjAy NDwvdGQ+QIVfDDP2jOkuRAOp aQLtGGngNe4tiEwiuZogKS4xSU NcncfrHHTgyK5sXUCtcELfpHui CL3sOKHepwiwb345OpWsVLG2 ACGanKGgQ0GiyK0sBxVsPVIeCH EbL1EdlFKuIFgdS223UBhpFvM6 FFQsrvPjH1VtULVcdKprRnU9 w9J3Va2Wm1GrbyqrO9KesTAjGu NnBrumHXr3E0DjEtkiuTK+PC90 JWAiBT93GIo4MHM3uJlnOGup KCHoJ7SaqB4qNzIoEVVlZHReVv c+PHRhYmxlIHdpZHRoPScxMDAl JyYvzYswEJ1tJj8lBLYdUVMz tOujmHKhVtYiu8ypLNQsPBzqVI 1idUujT8JygVY9NFGpu3s1Th95 Y81pR6YpiGU+JCHkgIG9mLU9 nP3vMhImPcT2JIjyI952GqPwwY XsNvbvp0lyh2vlyGd2KfZ5QDZs viBcoVyaUIQ9x9IwMi16V02q IHdpZHRoPSIxNSUiIHZhbGlnbj 7fzL2iWc6+NGItdAB0aFC0lS7w EfWmUmP6XXfzJ069JsDftMPe Etcgp9rep4purRb1IdCoFPRdux IeiEpvMJX0z7BnTm79K8FlfYcs d5NaSuv0dj54iHSix0S8aWC6 L5LgVICqhccdhDUyxCmtSZ0sKD KsunmlREXswT6kFMCeF2e3AlPs ByD9ITjfY3PgliQ2WDEptAZg CZNbmYMRdV9twxrdx0lzwvsfCt WlSKEjOTa2SWi9MGJjxHsiWjUu TDI5IdU2VKQ2kTJkxU9bdGvn oieiiL0wEun+QIN4tKFskYPKPT 1lOjwvdGQ+CNCjWOT4pUzhPXwb PHDjeU3kCFPoS9i6TiTwVrK3 YEknT5IpotW2QAPfoCKvHKRknO HJxZ4ulzblq2lvtpjnExWnDYAc ESz0FKt9NUZlqIekWwJpWGK9 TyT4YAI2aXBdfL2obArqqdhlpJ 9wOyc+MhnkuUoaXPO7HDc8V3Dz Ivq7HMTzuQjpDF4ssDWuTCex Fc7efZsgjOclKO0xRLKqwzjxg5 79NkObe9iyPUVwsFPyFBsvPQS9 S54vh6Q9FUSoBFTdPPG2jJO8 pF2iiQtovtlvrOJhvPjkysHxvW ilBYprCFkgL555BEIoaRbgWhUj DTo9N0HyThr7OSOkoTemBR5n bKEnHNikLx1fvFxppXtmCN8tHO Ukspecs794BqCdp7hnGFWdnQQs MVldPJR7P20su2E4NYDpUJGp TAG0cZO4kH0nyDyskhjvxLSqkI orxqCuvHyyEFbiAEfiW596XQMm fYpoVfMpcJy8Q8ZhFzv8BMBn uVglTF4hyBPnCDskNn4zqYehyL wpHK1oBSRtclyvd053TqUig5qr KTVegSZtMKppJIE0U46qn3S3 OKUoAATzKXY4rCB6eK8dyLrsxx ogbGVmdDsgdmVydGljYWwtYWxp V069KLQjoVnkYbWtsKujhjTx ZXgcLZe8R6SwSglczET+PC90YW YkGV62pIKltWXme9lptYv3WyDw RCAaYPN3uGpnNCuyx3DyOKWx B41jvBEkn8V3SWJjaBbkaKHwRe MeiAN7eJ2uUWkrpuzgr5xihdaz Lgywz9owus04vX99W17rCDzm LMFgGCQuQJLeQJIreAxaer9coT 9wIi8+AMLvbXX5dVX2wW8pVZXo JpS7AMjjA216PoTfjNEeUvrh g7nes6gqhPm6BcU5AGLpuhLleT zjDBL0d5ViWf63Y97qBGgnURQl ITNzGLLeUQZxcHcuvv6icH8w Ii8+PQGfhAW7gBK7aM2mCqPlXy I5THxtU817GnVbnPVbZvlqX08a C7NxiIY+HVBhNdm8VGMkmSlu KG4piDNuNXwsPa5nKKG5QpYwTh DnXZifZ2YhRQPpchyfusncoCJ6 RMIvYKLjlE20Jj7roJxtNFSu uSKOdL5ybikmc7iwlzrsHySgYE MlMRl3AKo8XAYyhUxyDrOvUSD1 LkO8WVP7wUGkzV1ccTsdqiqi nP3qK5MwUAWexmcoWj75uH8qJt VbYdY5DKjlKai+V6hHJ53DJVGV IBmRDDQASR14IU91kFWvu4O1 rJR9G9CnHDWykthrivupyBU1XE ZyOHKrtH50aMPcKLemAr9fd8C1 r610VPGqTPTjsY95Xx9guMdb CXIjiLHYvS7kuquyu8sozdbyRa YlNYEqQYc5QQi2VOClvBkbFzOt NFX1AwH3RJX0uCMugY4anNej vipujY9hTtp+MDIvMjYvMjAwND wvdGQ+HBDoDLB4wEosZPowSOQk tZ0uQCWzI4e1RvAiNhO3KYqd N7CtWQPrvuyhBn47gH3aCfKmQh G2UTecF4KdsvJ8MWVnjCTnNAtm KKB3N69xv8E0GCEbTMIlIFG6 tPR5oW3alRyjeommiFJlgSnpqb HnmFvkOHoxVNyiN491RWDjqUqh MhViKHfvRWAfZY60PC15yXAt s0R8wHU2C4ErIYNcuhubwiwhdT U0GHFrJTMxhD89bZUzAIsaLj4a e2V8z962WAKxQZWozW56Fl4y zDyiGQBucJVTaK0xwltvo4lcot tlErJgLZCsNHo0BPw6HDIknUiy HmWoMKY9DsB1JMY6uCYccQ8h uVzkhsnvfN7xFjp+RmVtYWxlPC 07FN77aWIpx8H0gRU4A4XsFPRu uszdkcnmtUC6EWBkFKBveW20 tYXxQDghPg5ja4B1x729BSRyXN LvlB02Yz9ffDrhKUHnzZAPrP2z oxjxv6xwzbntWxPcJAKaQIs8 TMc6UGHjcFazSoJeSRN5RoX6FE S9xYHzhM2rnEpffwuqmB8kChy+ GV9vxoqfgaA4SE01YF19J9No PjwvdGFibGU+PHRhYmxlIHdpZH QqLSlxSRJwBaDuhJifGX6fYi7o LVLlXZMltYtrtBFiOmOuh4op TLSxCKplAI0clFydR0YnwFQ5MB Bzz6k9Gc60M38xY5SnzSK+PGNv gPW5cDN6aO8gGaXzQuP3FCsu H726SgCztFAiGbazj2owt1ogdJ m9QsPwNVQigdSvoQjdFVB7i7Zg Ku52W04iGUjtWZIxHYHdKRRh GEEtzGnhmp0prG3jSn3+PGNvbC Y0wVS7wW0kVtPgUjJ1JKxiB517 YxJjiROnCvtcQ18dK7DulRE+ RICkLxr7JUNbnIwqET7qzKMsTJ hiTc6hJNM2DnTjBeAmGArdS5Gp IFNrbodvaqurmGH1AFEjUDTa oW07Iw8iuCpqGw1gRWPjVVY0XR AfdRIpA0LlbV9jDhQaYCPnEXTz L5BmiDSaZXkoQ140EIrbItR4 WSTljzVdD4WsTXRudZywLhL9f9 I9Fp5SsCiwxDEaEA6fLwNcHAy5 M3OuOoc2CKTefGhdMF9nhYBl PGwjQk3slHgnzUopGA4hLZWrgx rep804KhQqg6xlRFHkyRFkBZpo QEG6B77hk1F5OYEhPBRgDWG7 qOW4nG9kxQuavpmanGWmmHghag VktCpvRRauUEgwT480KEHqnWod MlSXKhr2C0KvJev3PVXlcWwu JQ1lzWArYBobCy8fkBadlTplKH 7xZWAfqrnsf139UvYea6drCQNz tKWzMBriJDZ5P11yn6V0TVNs DSTwWCK6eNC0cM1kiNweauyrnZ BnmYaomjChcZtlEVumSNegP423 QOCjzMowQb0DRdr4H4SiWuk0 FXXqtRfvBF9ynHWtPPotDe6zmA uogGcaHQ8qDUFywtlgb883UiZt g3qjWWQseOYgHZjfJYX0J46i e6K4MSSzWOBbBIL1uNF0oN5nuZ lnbjogbGVmdDsgdmVydGljYWwt VNyhG935THGccTvoOgZuxVMo OjwvdGQ+YB39wt77C3YgJgabHn t6MKHyQDK7dNT5wR2aSJYnQLei k0Z2xDC5E7AsxbFzty5cf0cr BMMxOSuuV32ez (more content not included)... Normal [facility] CT Abdomen/Pelvis w/ Contras ton [...] Oral contrast amount in ml's: 0 Normal [facility] Discharge Instructionson Discharge Instructions [id number] Normal [facility] ED Note-Physicianon 10-01-19 ED Note-Physician Basic [...] as well. Reports surgery was done at [facility]. Denies any fever or chills. Denies any [...] and Complexity of Problems Differential Diagnosis: [] [facility] Data External documents reviewed: [] My EKG [...] Medications Administered Given GenDil 100 mL + [id number] [F] 1000 mg, IV Piggyback NS 1000 ml Bolus, 1000 mL, IV ondansetron 4 mg/2 mL Inj, 4 mg, IV Push Disposition Plan Patient Discharge Condition stable Discharge Disposition to home Discharge Prescription List Prescriptions No active prescription medications Follow-up With When Contact Information ALLI MACK In 3 days 10/03/2023 EDT [address] [place] [address] Business (1) Additional Instructions: Call Dr for diagnosis based follow up Patient Education Constipation, Adult, [place] Abdominal Pain, Adult Attestation Patient seen and evaluated by the physician wily (more content not included)... Normal [facility] Comment on above: Result Comment: Elec tronically Signed By: Dalton Padilla PA-C\.br\Date and Time Signed: 09/30/23 22:56 EDT\.br\Electronically Co-Signed By: Dino Mccollum DO.br\Date and Time Co-Signed: 10/01/23 01:46 EDT B hCG Qualon 09-30-2023 Beta HCG ( test) Ql Negative Normal [facility] Comment on above: Performed By: #### 2 [id number] #### [facility] [address] [place] [address] BMPon 09-30-2023 Anion gap [Moles/Vol] 10 mmol/L Normal 6-16 [facility] Comment on above: Performed By: #### [id number] #### [facility] [address] [place] [address] Calcium [Mass/Vol] 8.9 mg/dL Normal 8.9-11.1 [facility] Comment on above: Performed By: #### 2 [id number] #### [facility] [address] [place] [address] Chloride [Moles/Vol] 110 mmol/L Normal 101-111 [facility] Comment on above: Performed By: #### 2 [id number] #### [facility] [address] [place] [address] CO2 [Moles/Vol] 22 mmol/L Normal 21-31 [facility] Comment on above: Performed By: #### 2 [id number] #### [facility] [address] [place] [address] Creatinine [Mass/Vol] 0.7 mg/dL Normal 0.5-1.3 [facility] Comment on above: Performed By: #### 2 [id number] #### [facility] [address] [place] [address] Glucose [Mass/Vol] 100 mg/dL Normal 55-199 [facility] Comment on above: Performed By: #### 2 [id number] #### [facility] [address] [place] [address] Potassium [Moles/Vol] 4.0 mmol/L Normal 3.5-5.3 [facility] Comment on above: Performed By: #### 2 [id number] #### [facility] [address] [place] [address] Sodium [Moles/Vol] 138 mmol/L Normal 135-145 [facility] Comment on above: Performed By: #### 2 [id number] #### [facility] [address] [place] [address] Urea nitrogen [Mass/Vol] 10 mg/dL Normal 5-21 [facility] Comment on above: Performed By: #### 2 [id number] #### [facility] [address] [place] [address] Urea nitrogen/Creatinine [Mass ratio] 14 No Units Normal 10-20 [facility] Comment on above: Performed By: #### 2 [id number] #### [facility] [address] [place] [address] CBC w/ Auto Diffon 4 Basophils/100 WBC (Bld) 1.2 % Normal 0.0-2.0 [facility] Comment on above: Performed By: #### 2 [id number] #### [facility] [address] [place] [id number] Basophils/Leukocytes Auto (Bld) [Pure # fraction] 0.1 E9/L Normal 0.0-0.2 [facility] Comment on above: Performed By: #### 2 [id number] #### [facility] [address] [place] [address] Eosinophils (Bld) [#/Vol] 0.3 E9/L Normal 0.0-0.5 [facility] Comment on above: Performed By: #### 2 [id number] #### [facility] [address] [place] [address] Eosinophils/100 WBC (Bld) 4.3 % Normal 0.0-8.0 [facility] Comment on above: Performed By: #### 2 [id number] #### [facility] [address] [place] [address] Erythrocyte distribution width (RBC) [Ratio] 13.8 % Normal 10.9-14.2 [facility] Comment on above: Performed By: #### 2 [id number] #### [facility] [address] [place] [address] Hematocrit (Bld) [Volume fraction] 33.8 % Low 34.0-46.0 [facility] Comment on above: Performed By: #### 2 [id number] #### [facility] [address] [place] [address] Hemoglobin (Bld) [Mass/Vol] 12.1 g/dL Normal 12.0-16.0 [facility] Comment on above: Performed By: #### 2 [id number] #### [facility] [address] [place] [address] Lymphocytes (Bld) [#/Vol] 1.9 E9/L Normal 1.0-4.0 [facility] Comment on above: Performed By: #### 2 [id number] #### [facility] [address] [place] [address] Lymphocytes/100 WBC (Bld) 26.2 % Normal 14.0-50.0 [facility] Comment on above: Performed By: #### 2 [id number] #### [facility] [address] [place] [address] MCH (RBC) [Entitic mass] 33.0 pg Normal 27.0-34.0 [facility] Comment on above: Performed By: #### 2 [id number] #### [facility] [address] [place] [address] MCHC (RBC) [Mass/Vol] 35.7 g/dL Normal 31.4-36.0 [facility] Comment on above: Performed By: #### 2 [id number] #### [facility] [address] [place] [address] MCV (RBC) [Entitic vol] 92.4 fL Normal 80.0-100.0 [facility] Comment on above: Performed By: #### 2 [id number] #### [facility] [address] [place] [address] Monocytes (Bld) [#/Vol] 0.7 E9/L Normal 0.2-1.0 [facility] Comment on above: Performed By: #### 2 [id number] #### [facility] [address] [place] [address] Neutrophils (Bld) [#/Vol] 4.2 E9/L Normal 2.0-7.5 [facility] Comment on above: Performed By: #### 2 236439 #### [facility] [address] [place] [address] Neutrophils/100 WBC (Bld) 58.5 % Normal 36.0-75.0 [facility] Comment on above: Performed By: #### 2 644421 #### [facility] [address] [place] [address] Platelet 232.0 E9/L Normal 150.0-500. 0 [facility] Comment on above: Performed By: #### 2 029818 #### [facility] [address] [place] [address] Platelet mean volume (Bld) [Entitic vol] 8.6 fL Normal 6.4-10.8 [facility] Comment on above: Performed By: #### 2 001128 #### [facility] [address] [place] [address] RBC (Bld) [#/Vol] 3.7 E12/L Low 4.3-5.9 [facility] Comment on above: Performed By: #### 2 941369 #### [facility] [address] [place] [address] WBC corrected for nucl RBC Auto (Bld) [#/Vol] 7.3 E9/L Normal 4.0-11.0 [facility] Comment on above: Performed By: #### 2 196742 #### [facility] [address] [place] [address] CHEMISTRYOrdered By: SYSTEM SYSTEM on 09-30-2023 Albumin [...] for Treatmenton 09-14 Consent for Treatment [id number]#[id number] Normal [facility] ED Clinical Summaryon 2023 ED Clinical Summary (Inserted Image. Brianna ble to display) [address] [address] ED Clinical Summary Person Information Name: THUY MALIK [place]an[place] Age: 18 Years : 2005 Sex: Female Language: Eritrean PCP: ALLI MACK CNP Marital Status: Single [...] 09/30/2023 23:02:52 09/30/2023 23:02:52 09/30/2023 23:02:52 ADDRESS: [address] [place] [phone] [facility] DOC NOTES: MEDICAL INFORMATION: Prescriptions Given: [...] 1. PATIENT EDUCATION INFORMATION: Instructions: Constipation, Adult, Qgjb-yi-Tbnw; Abdominal Pain, Adult Follow up: With: Address: When: ALLI MACK [address], [place] [id number] [employer] (1[employer]alz In 3 days 10/03/2023 Comments: Call Dr for diagnosis based follow up DIAGNOSIS: Abdominal pain; Constipated Normal [facility] ED Patient Education Noteon 09-30-2023 ED [...] in fat and sugar, such as: ? Mosotho fries. ? Hamburgers. ? Cookies. ? Candy. ? Soda. ? Drink enough fluid to keep your pee (urine) pale yellow. General instructions ? Exercise regularly or as told by your doctor. Try to do 150 minutes of exercise each week. ? Go to the restroom when you feel like you need to poop. Do not hold it in. ? Take xiuq-shk-qrjtdre and prescription medicines only as told by [...] your pee (urine) pale yellow. ? Take psmk-kqr-qnnrhhw and prescription medicines only as told by your doctor. These include any fiber supplements. This information is not intended to replace advice given to you by your health care provider. Make sure you discuss any questions you have with your health care provider. Document Revised: 02/18/2020 Document Reviewed: 02/18/2020 [employer] Patient Education ? 2022 [employer] Abdominal Pain, Adult Pain in the abdomen [...] these instructions at home: Medicines ? Take jcjz-ely-wgnncwn and prescription medicines only as told by [...] your condition for any changes. ? Take ksym-pqo-estiysn and prescription medicines only as told by your health care provider. ? Contact a health care provider if your abdominal pain changes or gets worse. ? Get help right away if you have severe pain, cram (more content not included)... Normal [facility] ED Patient Summaryon 024 ED Patient Summary (Inserted Image. Brianna ble to display) [address] [address] Patient Discharge Instructions Person Information Name: THUY MALIK Age: 18 Years Arrival Date: 09/30/2023 19:36:09 Discharge Diagnosis: Abdominal pain; Constipated Primary Care Physician: ALLI MACK CNP Provider Information Primary Provider: Dino Mccollum DO Advanced President + Publisher:None The exam and treatment you received in the Emergency Department were for an urgent problem and are not intended as complete care. It is important that you follow up with a doctor, nurse practitioner, or physician?s employment legal assistant for ongoing care. If your symptoms [...] Follow-up Instructions: With: Address: When: ALLI MACK [address] [place] [phone] Business (1) In 3 days 10/03/2023 Comments: Call for diagnosis based follow up In the event that this physician does not participate in your insurance network, please consult with your insurance company to find a nearby participating provider. Patient Education Materials: Constipation, Adult, Odiz-hb-Epvq; Abdominal Pain, Adult A MESSAGE TO ALL PATIENTS REGARDING OPIOIDS PRESCRIPTION OPIOIDS: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 Body mass index [...] Depression Patient Education Upper Respiratory Infection, Adult, Jjhd-zi-Pyjd Problem List/Past Medical History Ongoing Acute upper [...] 05/23/2023 G (more content not included)... Normal [facility] Comment on above: Result Comment: Elec tronically Signed By: ALLI MACK CNP\.br\Date and Time Signed: 06/21/23 07:31 EST Physician Referralon 024 Physician Referral [id number] [facility] Ambulatory Visit Summaryon 0 06-20-2023 [...] PM EDT With: ALLI MACK CNP Where: [facility] [place] Normal [facility] Patient Educationon 06-20-19 24 Patient [...] to help relieve symptoms, such as: ? Vtgs-fni-ygzbswl cold medicines. ? Medicines to reduce coughing [...] other clear broths. General instructions ? Take fkqj-mns-ieeoytw and prescription medicines only as told by [...] cannot use soap and water, use hand turning machine set up operator. ? Avoid touching your mouth, face, eyes, [...] get better within 7?10 days. ? Take xojt-fzh-vnrbevk and prescription medicines only as told by your doctor. This information is not intended to replace advice given to you by your health care (more content not included)... Normal [facility] Ambulatory Visit Summaryon 0 05-23-2023 [...] 1:40 PM EST With: Socorro Casarez Where: [facility] [place] Normal [facility] Consent for Flu Vaccineon Consent for Flu Vaccine [id number] Normal [facility] Family Medicine Office/Clini c Noteon 05-23-2023 Family [...] Daily, # 90 tab(s), Refills(s) 1, Pharmacy: [id number], 168, cm, 05/23/23 13:08:00 EST, Height/Length Dosing, 90, kg, 05/23/23 13:08:00 EST, Weight Dosing Completed & reviewed the PHQ-9 score of 13 and the MARCIAL-7 score of 18 today in the office escitalopram, 20 mg = 1 tab(s), Oral, Daily, # 90 tab(s), Refills(s) 1, Pharmacy: [id number], 168, cm, 05/23/23 13:08:00 EST, Height/Length Dosing, 90, kg, 05/23/23 13:08:00 EST, Weight Dosing f/u in 4 weeks Ordered: influenza virus vaccine, inactivated, 0.5 mL, Injection, IntraMuscular, Once, Stop date 05/23/23 14:00:00 EST, Routine, Start date 05/23/23 14:00:00 EST trazodone, 50 mg = 1 tab(s), Oral, Once a day (at bedtime), # 90 tab(s), Refills(s) 1, Pharmacy: [id number], 168, cm, 05/23/23 13:08:00 EST, Height/Length Dosing, 90, kg, 05/23/23 13:08:00 EST, Weight Dosing 2. Encounter to establish care (Z76.89: Persons encountering health services in other specified circumstances) 3. Encounter for immunization (Z23: Encounter for immunization) Ordered: influenza virus vaccine, inactivated, 0.5 mL, Injection, IntraMuscular, Once, Stop date 05/23/23 14:00:00 EST, Routine, Start date 05/23/23 14:00:00 EST FIRST VACCINE w/o [employer] Admin Charge [id number] Orders: escitalopram, 20 mg = 1 tab(s), Oral, Daily, # 90 tab(s), Refills(s) 1, Pharmacy: [id number], 168, cm, 05/23/23 13:08:00 EST, [...] 1 refills (more content not included)... Normal [facility] Comment on above: Result Comment: Elec tronically Signed By: ALLI MACK CNP\.piyush\Date and Time Signed: 05/23/23 13:50 EST [...] pray, or go to a place of jainism. ? Do some deep breathing. To do [...] or salt (sodium). General instructions ? Take [id number] and prescription medicines only as told by [...] Kristan: [email or web address] (more content not included)... Normal [facility] CHEMISTRYOrdered By: SYSTEM SYSTEM on [...] (Bld) [Mass fraction] 4.3 % Normal <=5.9% [facility] ChemAutoSS Cholesterol [Mass/volume] in Serum or PlasmaOrdered By: Dean Solis on 07-10-2022 Cholesterol [Mass/Vol] 134 mg/dL 140-200 [facility] Comment on above: Chol less than 200 m g/dl low riskChol 201-239 mg/dl borderline riskChol 240 mg/dl and greater high risk Cholesterol in LDL Calc [Mas s/Vol]Ordered By: Dean Solis on 07-10-2022 Cholesterol in LDL [Mass/Vol] 69 mg/dL 0-100 [facility] Comment on above: LDL ATP III CLASSIFI CATIONLDL less than 100 mg/dL OptimalLDL 100-129 mg/dL Near or above optimalLDL 130-159 mg/dL Borderline highLDL 160-189 mg/dL HighLDL greater than 189 mg/dL Very high Cholesterol in VLDL Calc [Ma ss/Vol]Ordered By: Dean Solis on 07-10-2022 Cholesterol in VLDL [Mass/Vol] 12 mg/dL [facility] Serum or plasma high density lipoprotein (HDL) cholesterol measurementOrdered By: Dean Solis on 07-10-2022 Cholesterol in HDL [Mass/Vol] 53 mg/dL 35-85 [facility] Comment on above: HDL CHOL ATP-III CLA SSIFICATION Cardiovascular RiskHDL > or equal to 60 mg/dL LOWHDL < 40 mg/dL HIGH Serum or plasma total choles terol/high density lipoprotein (HDL) cholesterol mass ratOrdered By: Dean Solis on 07-10-2022 Cholesterol.total/Chol esterol in HDL [Mass ratio] 2.5 {ratio} <5.0 [facility] Thyrotropin [Units/volume] i n Serum or PlasmaOrdered By: Dean Solis on 07-10-2022 TSH Qn 3.34 m[IU]/L 0.45-5.33 [facility] Triglyceride [Mass/volume] i n Serum or PlasmaOrdered By: Dean Solis on 07-10-2022 Triglyceride [Mass/Vol] 62 mg/dL 0-149 [facility] Comment on above: TRIG ATP III CLASSIF ICATIONTRIG less than 150 mg/dL NormalTRIG 150-199 mg/dL Borderline highTRIG 200-500 mg/dL High TRIG greater than 500 mg/dL Very highStandard traceable to the Center for Disease Conrtrol and Prevention (CDC) test method. Vitamin D+Metabolites [Mass/ volume] in Serum or PlasmaOrdered By: Dean Solis on 07-10-2022 Vitamin D+Metabolites [Mass/Vol] 12.0 ng/mL 30-100 [facility] Comment on above: VITAMIN D STATUS 25( [place])VITAMIN D RANGE (ng/mL) Deficient <20 Insufficient 20 to <30Sufficient 30 to 100Reference: Cem MF,Bernadine NC, Trudi PRICE, et al. Evaluation,treatment, and prevention of vitamin D deficiency; an Endocrine Society clinical practice guideline. JCEM. 2010; 96(7):1911-30. ACETAMINOPHENon 07-09-2022 Acetaminophen [Mass/Vol] ug/mL Critically low 10.0-30.0 [facility] Comment on above: Performed By: #### C MP, SALSANDRA, ACET #### [facility] [address] [address] [address] Skylar Ramirez CBC AUTO DIFFon 07-09-2022 BASO # 0.1 103/ul Normal 0.0-0.1 [facility] Comment on above: Performed By: #### C BC #### [facility] [address] [address] [address] Skylar Ramirez Basophils/100 WBC (Bld) 0.6 % Normal 0.2-2.0 [facility] Comment on above: Performed By: #### C BC #### [facility] [address] [place] [address] Dr. Skylar Ramirez EO # 0.1 103/ul Normal 0.0-0.7 [facility] Comment on above: Performed By: #### C BC #### [facility] [address] [place] [address] Dr. Skylar Ramirez Eosinophils/100 WBC (Bld) 1.0 % Normal 0.9-7.0 [facility] Comment on above: Performed By: #### C BC #### [facility] [address] [place] [address] Dr. Skylar Ramirez Erythrocyte distribution width (RBC) [Ratio] 12.6 % Normal 11.0-15.0 [facility] Comment on above: Performed By: #### C BC #### [facility] [address] [place] [address] Dr. Skylar Ramirez Hematocrit (Bld) [Volume fraction] 39.7 % Normal 36.0-48.0 [facility] Comment on above: Performed By: #### C BC #### [facility] [address] [place] [address] Dr. Skylar Ramirez Hemoglobin (Bld) [Mass/Vol] 14.4 g/dL Normal 12.0-16.0 [facility] Comment on above: Performed By: #### C BC #### [facility] [address] [place] [address] Dr. Skylar Ramirez IG # 0.03 10e3/ul Normal 0.00-0.03 [facility] Comment on above: Performed By: #### C BC #### [facility] [address] [place] [address] Dr. Skylar Ramirez IG % 0.4 % Normal 0.0-0.5 [facility] Comment on above: Performed By: #### C BC #### [facility] [address] [place] [address] Dr. Skylar Ramirez LYMPH # 2.2 103/ul Normal 1.2-3.8 [facility] Comment on above: Performed By: #### C BC #### [facility] [address] [place] [address] Dr. Skylar Ramirez Lymphocytes/100 WBC (Bld) 27.4 % Normal 20.5-60.0 [facility] Comment on above: Performed By: #### C BC #### [facility] [address] [place] [address] Dr. Skylar Ramirez MANUAL DIFF REQ NO Normal [facility] Comment on above: Performed By: #### C BC #### [facility] [address] [place] [address] Dr. Skylar Ramirez MCH (RBC) [Entitic mass] 33.6 pg Normal 26.7-34.0 [facility] Comment on above: Performed By: #### C BC #### [facility] [address] [place] [address] Dr. Skylar Ramirez MCHC (RBC) [Mass/Vol] 36.3 g/dL Critically high 29.9-35.2 [facility] Comment on above: Performed By: #### C BC #### [facility] [address] [place] [address] Dr. Skylar Ramirez MCV (RBC) [Entitic vol] 92.5 fL Normal 81.0-99.0 [facility] Comment on above: Performed By: #### C BC #### [facility] [address] [place] [address] Dr. Skylar Ramirez MONO # 0.4 103/ul Normal 0.3-0.8 [facility] Comment on above: Performed By: #### C BC #### [facility] [address] [place] [address] Dr. Skylar Ramirez Monocytes/100 WBC (Bld) 5.5 % Normal 1.7-12.0 [facility] Comment on above: Performed By: #### C BC #### [facility] [address] [place] [address] Dr. Skylar Ramirez NEUT # 5.3 103/ul Normal 1.4-6.5 [facility] Comment on above: Performed By: #### C BC #### [facility] [address] [place] [address] Dr. Skylar Ramirez Neutrophils/100 WBC (Bld) 65.1 % Normal 43.0-75.0 [facility] Comment on above: Performed By: #### C BC #### [facility] [address] [place] [address] Dr. Skylar Ramirez Platelet mean volume (Bld) [Entitic vol] 9.8 fL Normal 9.5-13.5 [facility] Comment on above: Performed By: #### C BC #### [facility] [address] [place] [address] Dr. Skylar Ramirez PLT 316 103/ul Normal 150-450 [facility] Comment on above: Performed By: #### C BC #### [facility] [address] [place] [address] Dr. Skylar Ramirez RBC 4.29 106/ul Normal 4.20-5.40 [facility] Comment on above: Performed By: #### C BC #### [facility] [address] [place] [address] Dr. Skylar Ramirez WBC 8.1 103/ul Normal 4.0-11.0 [facility] Comment on above: Performed By: #### C BC #### [facility] [address] [place] [address] Dr. Skylar Ramirez DRUG SCREEN RAPID (URINE)on 07-09-2022 AMP Negative Normal NEGATIVE [facility] Comment on above: Performed By: #### E #### [facility] [address] [place] [address] Dr. Skylar Ramirez BAR Negative Normal NEGATIVE [facility] Comment on above: Performed By: #### E #### [facility] [address] [place] [address] Dr. Skylar Ramirez BUP Negative Normal NEGATIVE [facility] Comment on above: Performed By: #### E TH #### [facility] [address] [place] [address] Dr. Skylar Ramirez BZO Negative Normal NEGATIVE [facility] Comment on above: Performed By: #### E TH #### [facility] [address] [place] [address] Dr. Skylar Ramirez RICHIE Negative Normal NEGATIVE [facility] Comment on above: Performed By: #### E #### [facility] [address] [place] [address] Dr. Skylar Ramirez CUT-OFFS SEE BELOW Normal [facility] Comment on above: Result Comment: AMP (Amphetamine): 500ng/mL, BAR (Barbituates): 200 ng/mL, BZO (Benzodiazepines): 150 ng/mL, BUP (Buprenorphine): 10 ng/mL, RICHIE (Cocaine): 150 ng/mL, mAMP (Methamphetamine): 500 ng/mL, MTD (Methadone): 200 ng/mL, OPI (Opiates): 100 ng/mL, OXY (Oxycodone): 100 ng/mL, PCP (Phencyclidine): 25 ng/mL, PPX (Propoxyphene): 300 ng/mL, THC (Cannabinoids): 50 ng/mL, TCA (Trycyclic Antidepressants): 300 ng/mL Performed By: #### E #### [facility] [address] [place] [address] Dr. Skylar Ramirez DRUG CUT HEADER DRUG CLASS TEST SYST EM CUT-OFF CONCENTRATIONS ARE FOLLOWS: Normal [facility] Comment on above: Performed By: #### E #### [facility] [address] [place] [address] Dr. Skylar Ramirez mAMP Negative Normal NEGATIVE [facility] Comment on above: Performed By: #### E #### [facility] [address] [place] [address] Dr. Skylar Ramirez MTD Negative Normal NEGATIVE [facility] Comment on above: Performed By: #### E #### [facility] [address] [place] [address] Dr. Skylar Ramirez OPI Negative Normal NEGATIVE [facility] Comment on above: Performed By: #### E #### [facility] [address] [place] [address] Dr. Skylar Ramirez OXY Negative Normal NEGATIVE [facility] Comment on above: Performed By: #### E #### [facility] [address] [place] [address] Dr. Skylar Ramirez PCP Negative Normal NEGATIVE [facility] Comment on above: Performed By: #### E TH #### [facility] [address] [place] [address] Dr. Skylar Ramirez PPX Negative Normal NEGATIVE [facility] Comment on above: Performed By: #### E TH #### [facility] [address] [place] [address] Dr. Skylar Ramirez TCA Negative Normal NEGATIVE [facility] Comment on above: Performed By: #### E TH #### [facility] [address] [place] [address] Dr. Skylar Ramirez THC Positive Abnormal NEGATIVE [facility] Comment on above: Performed By: #### E TH #### [facility] [address] [place] [address] Dr. Skylar Ramirez ER URINE PROFILEon 3 Bilirubin Ql (U) Negative Normal NEGATIVE [facility] Comment on above: Performed By: #### D MARIBETH, ERUR #### [facility] [address] [place] [address] Dr. Skylar Ramirez Clarity (U) CLEAR Normal CLEAR [facility] Comment on above: Performed By: #### Jessica STAHL, ERUR #### [facility] [address] [place] [address] Dr. Skylar Ramirez Color (U) LT. YELLOW Normal YELLOW [facility] Comment on above: Performed By: #### D MARIBETH, ERUR #### [facility] [address] [place] [address] Dr. Skylar Ramirez ERUAHJessica A micrscopic examina tion will be performed if indicated. Normal [facility] Comment on above: Performed By: #### D MARIBETH, ERUR #### [facility] [address] [place] [address] Dr. Skylar Ramirez Glucose Ql (U) Negative Normal NEGATIVE [facility] Comment on above: Performed By: #### D MARIBETH, ERUR #### [facility] [address] [place] [address] Dr. Skylar Ramirez Hemoglobin Ql (U) Negative Normal NEGATIVE [facility] Comment on above: Performed By: #### D KHRISD, ERUR #### [facility] [address] [place] [address] Dr. Skylar Ramirez Ketones Ql (U) Negative Normal NEGATIVE [facility] Comment on above: Performed By: #### D KHRISD, ERUR #### [facility] [address] [place] [address] Dr. Skylar Ramirez LEUKOCYTES Negative Normal NEGATIVE [facility] Comment on above: Performed By: #### D MARIBETH, ERUR #### [facility] [address] [place] [address] Dr. Skylar Ramirez Nitrite Ql (U) Negative Normal NEGATIVE [facility] Comment on above: Performed By: #### D MARIBETH, ERUR #### [facility] [address] [place] [address] Dr. Skylar Ramirez pH (U) 6.0 [pH] Normal 5-9 [facility] Comment on above: Performed By: #### D MARIBETH, ERUR #### [facility] [address] [place] [address] Dr. Skylar Ramirez SPEC GRAVITY <=1.005 Abnormal 1.005-<=1. 025 [facility] Comment on above: Performed By: #### D MARIBETH, ERUR #### [facility] [address] [place] [address] Dr. Skylar Ramirez UA PROTEIN Negative Normal NEGATIVE/ TRACE [facility] Comment on above: Performed By: #### D MARIBETH, ERUR #### [facility] [address] [place] [address] Dr. Skylar Ramirez UR MICRO IND NOT INDICATED Normal [facility] Comment on above: Performed By: #### D MARIBETH, ERUR #### [facility] [address] [place] [address] Dr. Skylar Ramirez Urobilinogen Qn (U) 0.2 {Evens'U}/dL Normal 0.2 - 1. 0 [facility] Comment on above: Performed By: #### D MARIBETH, ERUR #### [facility] [address] [address] [address] Skylar Ramirez ETHANOL (BLD ALC)on 07-10-19 23 ALC NOTE NOTE: 80 mg/dl is th e legal limit for a blood alcohol level Normal [facility] Comment on above: Performed By: #### E TH #### [facility] [address] [address] [address] Skylar Ramirez Ethanol [Mass/Vol] 90 mg/dL Normal [facility] Comment on above: Performed By: #### E TH #### [facility] [address] [address] [address] Skylar Ramirez ALC NOTE NOTE: 80 mg/dl is th e legal limit for a blood alcohol level Normal [facility] Comment on above: Performed By: #### E TH #### [facility] [address] [place] [address] Dr. Skylar Ramirez Ethanol [Mass/Vol] 116 mg/dL Normal [facility] Comment on above: Performed By: #### E TH #### [facility] [address] [place] [address] Dr. Skylar Ramirez PREG HCG QUALon 07-09-2022 , QUAL Negative Normal NEGATIVE [facility] Comment on above: Performed By: #### P REG #### [facility] [address] [place] [address] Dr. Skylar Ramirez PROF 14(COMP METB)on 023 Albumin [Mass/Vol] 4.4 g/dL Normal 3.4-5.0 [facility] Comment on above: Performed By: #### C SERINA GUPTA, ACET #### [facility] [address] [address] [address] Skylar Ramirez Albumin/Globulin [Mass ratio] 1.5 {ratio} Normal [facility] Comment on above: Performed By: #### C SERINA GUPTA, ACET #### [facility] [address] [place] [address] Dr. Skylar Ramirez ALP [Catalytic activity/Vol] 65 U/L Normal 46-116 [facility] Comment on above: Performed By: #### C MP, SALYC, ACET #### [facility] [address] [address] [address] Skylar Ramirez ALT [Catalytic activity/Vol] 16 U/L Normal 14-59 [facility] Comment on above: Performed By: #### C MP, SALYC, ACET #### [facility] [address] [address] [address] Skylar Ramirez Anion gap [Moles/Vol] 14.2 mmol/L Normal [facility] Comment on above: Performed By: #### C MP, SALYC, ACET #### [facility] [address] [place] [address] Dr. Skylar Ramirez AST [Catalytic activity/Vol] 14 U/L Critically low 15-37 [facility] Comment on above: Performed By: #### C MP, SALYC, ACET #### [facility] [address] [place] [address] Dr. Skylra Ramirez Bilirubin [Mass/Vol] 0.6 mg/dL Normal 0.2-1.0 [facility] Comment on above: Performed By: #### C MP, SALYC, ACET #### [facility] [address] [place] [address] Dr. Skylar Ramirez Calcium [Mass/Vol] 9.1 mg/dL Normal 8.5-10.1 [facility] Comment on above: Performed By: #### C MP, SALYC, ACET #### [facility] [address] [place] [address] Dr. Skylar Ramirez Chloride [Moles/Vol] 106 mmol/L Normal 98-107 [facility] Comment on above: Performed By: #### C MP, SALYC, ACET #### [facility] [address] [place] [address] Dr. Skylar Ramirez CO2 [Moles/Vol] 26.0 mmol/L Normal 21.0-32.0 [facility] Comment on above: Performed By: #### C MP, SALYC, ACET #### [facility] [address] [place] [address] Dr. Skylar Ramirez Creatinine [Mass/Vol] 0.78 mg/dL Normal 0.55-1.02 [facility] Comment on above: Performed By: #### C SERINA GUPTA, ACET #### [facility] [address] [address] [address] Skylar Ramirez EGFR-AF [place]ER >60 Normal >=60 [facility] Comment on above: Performed By: #### C SERINA GUPTA, ACET #### [facility] [address] [address] [address] Skylar Ramirez EGFR-NON AF [place]ER >60 Normal >=60 [facility] Comment on above: Performed By: #### C SERINA GUPTA, ACET #### [facility] [address] [address] [address] Skylar Ramirez Globulin (S) [Mass/Vol] 3.0 g/dL Normal [facility] Comment on above: Performed By: #### C SERINA GUPTA, ACET #### [facility] [address] [address] [address] Skylar Ramirez Glucose [Mass/Vol] 129 mg/dL Critically high 74-106 [facility] Comment on above: Performed By: #### C SERINA GUPTA, ACET #### [facility] [address] [place] [address] Dr. Skylar Ramirez Potassium [Moles/Vol] 3.2 mmol/L Critically low 3.5-5.1 [facility] Comment on above: Performed By: #### C SERINA GUPTA, ACET #### [facility] [address] [place] [address] Dr. Skylar Ramirez Protein [Mass/Vol] 7.4 g/dL Normal 6.4-8.2 [facility] Comment on above: Performed By: #### C SERINA GUPTA, ACET #### [facility] [address] [place] [address] Dr. Skylar Ramirez Sodium [Moles/Vol] 143 mmol/L Normal 136-145 [facility] Comment on above: Performed By: #### C SERINA GUPTA, ACET #### [facility] [address] [place], [place] [address] Dr. Skylar Ramirez Urea nitrogen [Mass/Vol] 6.0 mg/dL Critically low 6.4-19.3 [facility] Comment on above: Performed By: #### C CANDY SALYC, ACET #### [facility] [address] [place], [place] [address] Dr. Skylar Ramirez Urea nitrogen/Creatinine [Mass ratio] 7.7 mg/mg Normal [facility] Comment on above: Performed By: #### C CANDY SALYC, ACET #### [facility] [address] [place], [place] [address] Dr. Skylar Ramirez SALICYLATEon 07-09-2022 SALICYLATE <2.8 Normal <=19.9 [facility] Comment on above: Performed By: #### C ENZO GUPTAYC, ACET #### [facility] [address] [place], [place] [address] Dr. Skylar Ramirez XR HAND RT MIN [...] JJ SILVA Date: 2022-07-09 18:12 Normal [facility] MICRO OTHER TESTSOrdered By: Jose Clay on 03-23-2022 Influenzae A Ag Negative (03/23/22 1:19 AM) Normal Negative [facility] Influenzae B Ag Negative (03/23/22 1:19 AM) Normal Negative [facility] Rapid COV Int NEG Ctl Pass (03/23/22 1:19 AM) Normal [facility] Rapid COV Int POS Ctl Pass (03/23/22 1:19 AM) Normal [facility] S. pyogenes Ag IA.rapid Ql (Throat) Negative (03/23/22 1:19 AM) Normal Negative [facility] SARS-CoV+SARS-CoV-2 (COVID-19) Ag IA.rapid Ql (Resp) Not Detected (03/23/22 1:19 AM) Normal Not Detected [facility] Covid-19 PCR (CVDTB)on 11-14 SARS-CoV-2 (COVID-19) RNA ANUP+probe Ql (Unsp spec) Detected Critically abnormal NOT DETECTED [facility] Comment on above: Result Comment: This test is not yet approved or cleared by the [place] FDA. When there are no FDA-approved or cleared tests available, and other criteria are met, FDA can make tests available under an emergency access mechanism called an Emergency Use Authorization (EUA). The EUA for this test is supported by the Administrative Volunteer of Health and Human Service's (HHS's) declaration [...] longer be used). Performed By: #### E #### [facility] [address] [place] [address] Dr. Skylar Ramirez Covid-19 PCR (CVDTBH)on SARS-CoV-2 (COVID-19) RNA ANUP+probe Ql (Unsp spec) Not detected Normal NOT DETECTED [facility] Comment on above: Result Comment: This test is not yet approved or cleared by the [place] FDA. When there are no FDA-approved or cleared tests available, and other criteria are met, FDA can make tests available under an emergency access mechanism called an Emergency Use Authorization (EUA). The EUA for this test is supported by the [place] of Health and Human Service's (HHS's) declaration [...] SARS-CoV-2. Performed By: #### C VDTB #### [facility] [address] [place] [address] Dr. Skylar Ramirez CBC AUTO DIFFon 08-17-2021 BASO # 0.1 103/ul Normal 0.0-0.1 [facility] Comment on above: Performed By: #### E TH #### [facility] [address] [place] [address] Dr. Skylar Ramirez Basophils/100 WBC (Bld) 0.6 % Normal 0.2-2.0 [facility] Comment on above: Performed By: #### E TH #### [facility] [address] [place] [address] Dr. Skylar Ramirez EO # 0.2 103/ul Normal 0.0-0.7 [facility] Comment on above: Performed By: #### E TH #### [facility] [address] [place] [address] Dr. Skylar Ramirez Eosinophils/100 WBC (Bld) 2.0 % Normal 0.9-7.0 [facility] Comment on above: Performed By: #### E TH #### [facility] [address] [place] [address] Dr. Skylar Ramirez Erythrocyte distribution width (RBC) [Ratio] 13.2 % Normal 11.0-15.0 [facility] Comment on above: Performed By: #### E TH #### [facility] [address] [place] [address] Dr. Skylar Ramirez Hematocrit (Bld) [Volume fraction] 38.4 % Normal 36.0-48.0 [facility] Comment on above: Performed By: #### E #### [facility] [address] [place] [address] Dr. Skylar Ramirez Hemoglobin (Bld) [Mass/Vol] 13.1 g/dL Normal 12.0-16.0 [facility] Comment on above: Performed By: #### E #### [facility] [address] [place] [address] Dr. Skylar Ramirez IG # 0.02 10e3/ul Normal 0.00-0.03 [facility] Comment on above: Performed By: #### E #### [facility] [address] [place] [address] Dr. Skylar Ramirez IG % 0.2 % Normal 0.0-0.5 [facility] Comment on above: Performed By: #### E #### [facility] [address] [place] [address] Dr. Skylar Ramirez LYMPH # 3.0 103/ul Normal 1.2-3.8 [facility] Comment on above: Performed By: #### E #### [facility] [address] [place] [address] Dr. Skylar Ramirez Lymphocytes/100 WBC (Bld) 31.8 % Normal 20.5-60.0 [facility] Comment on above: Performed By: #### E #### [facility] [address] [place] [address] Dr. Skylar Ramirez MANUAL DIFF REQ NO Normal [facility] Comment on above: Performed By: #### E #### [facility] [address] [place] [address] Dr. Skylar Ramirez MCH (RBC) [Entitic mass] 32.0 pg Normal 26.7-34.0 [facility] Comment on above: Performed By: #### E #### [facility] [address] [place] [address] Dr. Skylar Ramirez MCHC (RBC) [Mass/Vol] 34.1 g/dL Normal 29.9-35.2 [facility] Comment on above: Performed By: #### E #### [facility] [address] [address] [address] Skylar Ramirez MCV (RBC) [Entitic vol] 93.7 fL Normal 81.0-99.0 [facility] Comment on above: Performed By: #### E TH #### [facility] [address] [address] [address] Skylar Ramirez MONO # 0.7 103/ul Normal 0.3-0.8 [facility] Comment on above: Performed By: #### E #### [facility] [address] [address] [address] Skylar Ramirez Monocytes/100 WBC (Bld) 7.6 % Normal 1.7-12.0 [facility] Comment on above: Performed By: #### E #### [facility] [address] [place] [address] Dr. Skylar Ramirez NEUT # 5.4 103/ul Normal 1.4-6.5 [facility] Comment on above: Performed By: #### E #### [facility] [address] [place] [address] Dr. Skylar Ramirez Neutrophils/100 WBC (Bld) 57.8 % Normal 43.0-75.0 [facility] Comment on above: Performed By: #### E #### [facility] [address] [place] [address] Dr. Skylar Ramirez Platelet mean volume (Bld) [Entitic vol] 10.9 fL Normal 9.5-13.5 [facility] Comment on above: Performed By: #### E #### [facility] [address] [place] [address] Dr. Skylar Ramirez PLT 275 103/ul Normal 150-450 [facility] Comment on above: Performed By: #### E #### [facility] [address] [place] [address] Dr. Skylar Ramirez RBC 4.10 106/ul Critically low 4.20-5.40 [facility] Comment on above: Performed By: #### E #### [facility] [address] [place] [address] Dr. Skylar Ramirez WBC 9.3 103/ul Normal 4.0-11.0 [facility] Comment on above: Performed By: #### E #### [facility] [address] [place] [address] Dr. Skylar Ramirez FREE T3on 08-17-2021 FREE T3 2.08 pg/mlL Critically low 2.91-4.70 [facility] Comment on above: Performed By: #### E #### [facility] [address] [place] [address] Dr. Skylar Ramriez FREE T4on 08-17-2021 Free T4 [Mass/Vol] 0.93 ng/dL Normal 0.78-1.34 [facility] Comment on above: Performed By: #### E #### [facility] [address] [place] [address] Dr. Skylar Ramirez PROF 14(COMP METB)on 022 Albumin [Mass/Vol] 4.4 g/dL Normal 3.4-5.0 [facility] Comment on above: Performed By: #### E #### [facility] [address] [place] [address] Dr. Skylar Ramirez Albumin/Globulin [Mass ratio] 1.6 {ratio} Normal [facility] Comment on above: Performed By: #### E #### [facility] [address] [place] [address] Dr. Skylar Ramirez ALP [Catalytic activity/Vol] 45 U/L Critically low 46-116 [facility] Comment on above: Performed By: #### E #### [facility] [address] [place] [address] Dr. Skylar Ramirez ALT [Catalytic activity/Vol] 14 U/L Normal 14-59 [facility] Comment on above: Performed By: #### E #### [facility] [address] [place] [address] Dr. Skylar Ramirez Anion gap [Moles/Vol] 13.7 mmol/L Normal Th [facility] Comment on above: Performed By: #### E TH #### [facility] [address] [address] [address] Skylar Ramirez AST [Catalytic activity/Vol] 8 U/L Critically low 15-37 [facility] Comment on above: Performed By: #### E TH #### [facility] [address] [address] [address] Skylar Ramirez Bilirubin [Mass/Vol] 1.2 mg/dL Critically high 0.2-1.0 [facility] Comment on above: Performed By: #### E TH #### [facility] [address] [address] [address] Skylar Ramirez Calcium [Mass/Vol] 8.7 mg/dL Normal 8.5-10.1 [facility] Comment on above: Performed By: #### E TH #### [facility] [address] [place] [address] Dr. Skylar Ramirez Chloride [Moles/Vol] 104 mmol/L Normal 98-107 [facility] Comment on above: Performed By: #### E TH #### [facility] [address] [address] [address] Skylar Ramirez CO2 [Moles/Vol] 26.7 mmol/L Normal 21.0-32.0 [facility] Comment on above: Performed By: #### E TH #### [facility] [address] [place] [address] Dr. Skylar Ramirez Creatinine [Mass/Vol] 0.83 mg/dL Normal 0.55-1.02 [facility] Comment on above: Performed By: #### E TH #### [facility] [address] [address] [address] Skylar Ramirez EGFR-AF [place] ISLANDER >60 Normal >=60 [facility] Comment on above: Performed By: #### E TH #### [facility] [address] [place] [address] Dr. Skylar Ramirez EGFR-NON AF [place]ER >60 Normal >=60 [facility] Comment on above: Performed By: #### E TH #### [facility] [address] [place] [address] Dr. Skylar Ramirez Globulin (S) [Mass/Vol] 2.8 g/dL Normal [facility] Comment on above: Performed By: #### E TH #### [facility] [address] [place] [address] Dr. Skylar Ramirez Glucose [Mass/Vol] 111 mg/dL Critically high 74-106 [facility] Comment on above: Performed By: #### E TH #### [facility] [address] [place] [address] Dr. Skylar Ramirez Potassium [Moles/Vol] 3.4 mmol/L Critically low 3.5-5.1 [facility] Comment on above: Performed By: #### E TH #### [facility] [address] [place] [address] Dr. Skylar Ramirez Protein [Mass/Vol] 7.2 g/dL Normal 6.1-8.2 [facility] Comment on above: Performed By: #### E TH #### [facility] [address] [place] [address] Dr. Skylar Ramirez Sodium [Moles/Vol] 141 mmol/L Normal 136-145 [facility] Comment on above: Performed By: #### E TH #### [facility] [address] [place] [address] Dr. Skylar Ramirez Urea nitrogen [Mass/Vol] 10.0 mg/dL Normal 6.4-19.3 [facility] Comment on above: Performed By: #### E TH #### [facility] [address] [place] [address] Dr. Skylar Ramirez Urea nitrogen/Creatinine [Mass ratio] 12.0 mg/mg Normal [facility] Comment on above: Performed By: #### E TH #### [facility] [address] [place] [address] Dr. Skylar Ramirez TSHon 08-17-2021 TSH 0.755 uIU/mL Normal 0.430-3.75 0 [facility] Comment on above: Performed By: #### E TH #### [facility] [address] [place] [address] Dr. Skylar Ramirez TSH RANGE SEE BELOW Normal [facility] Comment on above: Result Comment: <0.3 4 UIU/ml HYPERTHYROID 0.34-5.60 UIU/ml EUTHYROID >5.60 UIU/ml HYPOTHYROID Performed By: #### E TH #### [facility] [address] [address] [address] Skylar Ramirez Vital Signs Date Time Vital Sign Value Performing Clinician Facility 03-28-2024 10:04-0500 Body weight 73.03 kg Iveth Rinkes DO Work Phone: [facility] 03-28-2024 10:04-0500 Diastolic blood pressure 80 mm[Hg] Iveth Rinkes DO Work Phone: [facility] 03-28-2024 10:04-0500 Systolic blood pressure 120 mm[Hg] Iveth Rinkes DO Work Phone: [facility] 02-29-2024 10:29-0500 Body weight 78.47 kg Iveth Rinkes DO Work Phone: [facility] 02-29-2024 10:29-0500 Diastolic blood pressure 80 mm[Hg] Iveth Rinkes DO Work Phone: [facility] 02-29-2024 10:29-0500 Systolic blood pressure 118 mm[Hg] Iveth Rinkes DO Work Phone: [facility] 12-03-2023 16:00-0400 Diastolic blood pressure 59 mm[Hg] CHRIS Sandra Work Phone: [facility] 12-03-2023 16:00-0400 Heart rate 66 /min CHRIS Sandra Work Phone: [facility] 12-03-2023 16:00-0400 Respiratory rate 18 /min CHRIS Sandra Work Phone: [facility] 12-03-2023 16:00-0400 SaO2% (BldA) [Mass fraction] 100 % CHRIS Sandra Work Phone: [facility] 12-03-2023 16:00-0400 Systolic blood pressure 108 mm[Hg] CHRIS Sandra Work Phone: [facility] 12-03-2023 12:49-0400 Body height 162.56 cm CHRIS Sandra Work Phone: [facility] 12-03-2023 12:49-0400 Body temperature 98 [degF] CHRIS Sandra Work Phone: [facility] 12-03-2023 12:49-0400 Body weight 83.46 kg CHRIS Sandra Work Phone: [facility] 09-30-2023 22:58-0400 Diastolic blood pressure 73 mm[Hg] ALLI CINDI [facility] 09-30-2023 22:58-0400 Heart rate 75 /min ALLI CINDI [facility] 09-30-2023 22:58-0400 Mean blood pressure 83 mm[Hg] ALLI CINDI [facility] 09-30-2023 22:58-0400 Respiratory rate 18 /min ALLI CINDI [facility] 09-30-2023 22:58-0400 SaO2% (BldA) [Mass fraction] 99 % ALLI CINDI [facility] 09-30-2023 22:58-0400 Systolic blood pressure 102 mm[Hg] ALLI CINDI [facility] 09-30-2023 21:50-0400 Diastolic blood pressure 73 mm[Hg] ALLI CINDI [facility] 09-30-2023 21:50-0400 Heart rate 82 /min ALLI CINDI [facility] 09-30-2023 21:50-0400 Mean blood pressure 83 mm[Hg] ALLI CINDI [facility] 09-30-2023 21:50-0400 Respiratory rate 18 /min ALLI CINDI [facility] 09-30-2023 21:50-0400 SaO2% (BldA) [Mass fraction] 97 % ALLI CINDI [facility] 09-30-2023 21:50-0400 Systolic blood pressure 104 mm[Hg] ALLI CINDI [facility] 09-30-2023 20:53-0400 Diastolic blood pressure 83 mm[Hg] ALLI CINDI [facility] 09-30-2023 20:53-0400 Heart rate 85 /min ALLI CINDI [facility] 09-30-2023 20:53-0400 Mean blood pressure 90 mm[Hg] ALLI CINDI [facility] 09-30-2023 20:53-0400 Respiratory rate 18 /min ALLI CINDI [facility] 09-30-2023 20:53-0400 SaO2% (BldA) [Mass fraction] 98 % ALLI CINDI [facility] 09-30-2023 20:53-0400 Systolic blood pressure 105 mm[Hg] ALLI CINDI [facility] 09-30-2023 19:41-0400 Body temperature 98.42 [degF] ALLI CINDI [facility] 09-30-2023 19:41-0400 Heart rate 88 /min ALLI CINDI [facility] 08-27-2023 09:30-0400 Heart rate 63 /min Edi Ishmael [facility] 08-27-2023 09:30-0400 Respiratory rate 16 /min Edi Ishmael [facility] 08-27-2023 09:30-0400 SaO2% (BldA) [Mass fraction] 100 % Edi Ishmael [facility] 08-27-2023 09:00-0400 Diastolic blood pressure 53 mm[Hg] Edi Ishmael [facility] 08-27-2023 09:00-0400 Heart rate 58 /min Edi Ishmael [facility] 08-27-2023 09:00-0400 Mean blood pressure 74 mm[Hg] Edi Ishmael [facility] 08-27-2023 09:00-0400 SaO2% (BldA) [Mass fraction] 98 % Edi Ishmael [facility] 08-27-2023 09:00-0400 Systolic blood pressure 115 mm[Hg] Edi Ishmael [facility] 08-27-2023 08:00-0400 Diastolic blood pressure 68 mm[Hg] Edi Ishmael [facility] 08-27-2023 08:00-0400 Heart rate 70 /min Edi Ishmael [facility] 08-27-2023 08:00-0400 Mean blood pressure 86 mm[Hg] Edi Ishmael [facility] 08-27-2023 08:00-0400 Systolic blood pressure 122 mm[Hg] Edi Ishmael [facility] 08-27-2023 07:30-0400 Diastolic blood pressure 66 mm[Hg] Edi Ishmael [facility] 08-27-2023 07:30-0400 Mean blood pressure 84 mm[Hg] Edi Quiñones [facility] 08-27-2023 07:30-0400 Systolic blood pressure 120 mm[Hg] Edi Quiñones [facility] 08-27-2023 06:54-0400 Body temperature 98.42 [degF] Edi Quiñones [facility] 08-27-2023 06:54-0400 Heart rate 71 /min Edi Quiñones [facility] 08-27-2023 06:54-0400 Respiratory rate 18 /min Edi Quiñones [facility] 08-15-2023 10:16-0400 Body temperature 98.24 [degF] Refugio Barriga [facility] 08-15-2023 10:16-0400 Diastolic blood pressure 72 mm[Hg] Refugio Barriga [facility] 08-15-2023 10:16-0400 Heart rate 88 /min Refugio Barriga [facility] 08-15-2023 10:16-0400 Systolic blood pressure 107 mm[Hg] Refugio Barriga [facility] 08-11-2023 03:34-0400 Diastolic blood pressure 60 mm[Hg] Jessi Avina MD Work Phone: [facility] 08-11-2023 03:34-0400 Heart rate 90 /min Jessi Avina MD Work Phone: [facility] 08-11-2023 03:34-0400 Respiratory rate 18 /min Jessi Avina MD Work Phone: [facility] 08-11-2023 03:34-0400 SaO2% (BldA) [Mass fraction] 100 % Jessi Avina MD Work Phone: [facility] 08-11-2023 03:34-0400 Systolic blood pressure 123 mm[Hg] Jessi Avina MD Work Phone: [facility] 08-10-2023 21:17-0400 Body temperature 99 [degF] Jessi Avina MD Work Phone: [facility] 08-03-2023 21:54-0400 Body temperature 97.9 [degF] DO Kim Slack Work Phone: [facility] 08-03-2023 21:54-0400 Diastolic blood pressure 64 mm[Hg] DO Kim Slack Work Phone: [facility] 08-03-2023 21:54-0400 Heart rate 72 /min DO Kim Slack Work Phone: [facility] 08-03-2023 21:54-0400 Respiratory rate 18 /min DO Kim Slack Work Phone: [facility] 08-03-2023 21:54-0400 SaO2% (BldA) [Mass fraction] 100 % DO Kim Slack Work Phone: [facility] 08-03-2023 21:54-0400 Systolic blood pressure 114 mm[Hg] DO Kim Slack Work Phone: [facility] 08-03-2023 20:12-0400 Body height 165.1 cm DO Kim Slack Work Phone: [facility] 08-03-2023 20:12-0400 Body weight 93.7 kg DO Kim Slack Work Phone: [facility] 07-12-2022 07:30-0400 Body temperature 97.7 [degF] MD Brionna See Work Phone: [facility] 07-12-2022 07:30-0400 Diastolic blood pressure 67 mm[Hg] MD Brionna See Work Phone: [facility] 07-12-2022 07:30-0400 Heart rate 63 /min MD Brionna See Work Phone: [facility] 07-12-2022 07:30-0400 SaO2% (BldA) [Mass fraction] 98 % MD Brionna See Work Phone: [facility] 07-12-2022 07:30-0400 Systolic blood pressure 119 mm[Hg] MD Brionna See Work Phone: [facility] 07-11-2022 20:12-0400 Respiratory rate 16 /min MD Brionna See Work Phone: [facility] 07-11-2022 15:25-0400 Body height 162.56 cm MD Brionna See Work Phone: [facility] 07-10-2022 09:00-0400 Body weight 80.28 kg MD Brionna See Work Phone: [facility] 04-11-2022 12:01-0500 Body temperature 98.42 [degF] Nevaeh Leahy [facility] 04-11-2022 12:01-0500 bodymassindex 1.18 Nevaeh Leahy [facility] Comment on above: Result Comment: ^~:!ZScore Source -[facility] 04-11-2022 12:01-0500 Diastolic blood pressure 87 mm[Hg] Nevaeh Leahy [facility] 04-11-2022 12:01-0500 Heart rate 90 /min Nevaeh Leahy [facility] 04-11-2022 12:01-0500 Height/Length Percentile 76.91 Nevaeh Leahy [facility] Comment on above: Result Comment: ^~:!Percentile Source -[facility] 04-11-2022 12:01-0500 Height/Length Z-Score 0.74 Nevaeh Leahy [facility] Comment on above: Result Comment: ^~:![employer] [facility] 04-11-2022 12:01-0500 Respiratory rate 20 /min Nevaeh Leahy [facility] 04-11-2022 12:01-0500 SaO2% (BldA) [Mass fraction] 100 % Nevaeh Leahy [facility] 04-11-2022 12:01-0500 Systolic blood pressure 137 mm[Hg] Nevaeh Leahy [facility] 04-11-2022 12:01-0500 weight 1.38 Nevaeh Leahy [facility] Comment on above: Result Comment: ^~:![employer] [facility] 04-11-2022 12:01-0500 Weight Percentile 91.69 % Nevaeh Leahy [facility] Comment on above: Result Comment: ^~:!Percentile Source -[facility] 03-23-2022 01:05-0500 Body temperature 98.06 [degF] Kaylinn Dokken [facility] 03-23-2022 01:05-0500 bodymassindex 1.47 Kaylinn Dokken [facility] Comment on above: Result Comment: ^~:![employer] [facility] 03-23-2022 01:05-0500 Diastolic blood pressure 79 mm[Hg] Kaylinn Dokken [facility] 03-23-2022 01:05-0500 Heart rate 83 /min Kaylinn Dokken [facility] 03-23-2022 01:05-0500 Height/Length Percentile 42.45 Kaylinn Dokken [facility] Comment on above: Result Comment: ^~:!Percentile Source -[facility] [place] 03-23-2022 01:05-0500 Height/Length Z-Score -0.19 Dino Mccollum [facility] Comment on above: Result Comment: ^~:!Ana [facility] 03-23-2022 01:05-0500 Respiratory rate 16 /min Dino Mccollum [facility] 03-23-2022 01:05-0500 SaO2% (BldA) [Mass fraction] 99 % Dino Mccollum [facility] 03-23-2022 01:05-0500 Systolic blood pressure 117 mm[Hg] Dino Mccollum [facility] 03-23-2022 01:05-0500 weight 1.42 Dino Mccollum [facility] Comment on above: Result Comment: ^~:!Ana [facility] 03-23-2022 01:05-0500 Weight Percentile 92.21 % Dino Mccollum [facility] Comment on above: Result Comment: ^~:!Percentile Source -C DC Encounters Encounter Date Encounter Type Care Provider Facility Start: 03-28-2024 End: 03-28-2024 Bamboo flowsheet Iveth E Rinkes DO Work Phone: [facility] Start: 03-28-2024 End: 03-28-2024 Bamboo flowsheet Iveth E Rinkes DO Work Phone: [facility] Start: 03-28-2024 End: 03-28-2024 Office outpatient visit 15 minutes Iveth E Rinkes DO Work Phone: [facility] Comment on above: 16 weeks gestation o f (Primary Dx); Nausea and vomiting in Start: 03-28-2024 End: 03-28-2024 ambulatory IVETH Jessi RINKES Not Available Start: 02-29-2024 End: 02-29-2024 Bamboo flowsheet Iveth E Rinkes DO Work Phone: [facility] Start: 02-29-2024 End: 02-29-2024 Bamboo flowsheet Iveth E Rinkes DO Work Phone: [facility] Start: 02-29-2024 End: 02-29-2024 Office outpatient visit 25 minutes Iveth E Rinkes DO Work Phone: [facility] Comment on above: GA: [id number] Start: 02-29-2024 End: 02-29-2024 ambulatory IVETH E RINKES Not Available Start: 02-20-2024 End: 02-20-2024 ambulatory ALLI A CINDI Facility:[facility] Start: 01-29-2024 End: 01-29-2024 ambulatory MOTAPRAWIRA Not Available Start: 01-24-2024 End: 01-24-2024 flow sheet [facility] Nurse [facility] Comment on above: GA: [id number] Start: 01-24-2024 End: 01-24-2024 ambulatory MOTAPRAWIRA Not Available Start: 12-24-2023 End: 12-24-2023 ambulatory SINGLE NEEDLE 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 OPERATOR ALLI MACK Facility:[facility] Start: 12-03-2023 End: 12-03-2023 Emergency department patient visit CHRIS Sandra Work Phone: [facility] Work Phone: Start: 09-30-2023 End: 09-30-2023 Emergency department patient visit DO Dino Lynn Dosampolina [facility] Start: 09-17-2023 End: 09-17-2023 ambulatory MOTAPRAWIRA Not Available Start: 09-13-2023 End: 09-13-2023 ambulatory BAIRON J NATAPRAWIRA Not Available Start: 08-29-2023 End: 08-29-2023 ambulatory SINGLE NEEDLE TUFTING MACHINE OPERATOR ALLI MACK Facility:[facility] Start: 08-27-2023 End: 08-27-2023 Emergency department patient visit Edi Quiñones [facility] Start: 08-15-2023 End: 08-15-2023 ambulatory Jewell Driver Facility:[facility] Start: 08-15-2023 End: 08-15-2023 Patient encounter procedure Refugio Barriga [facility] Start: 08-14-2023 Telephone encounter Ashley Patelanthony [facility] Acute Care Surgery Start: 08-13-2023 End: 08-13-2023 ambulatory ROCAEL MACK Facility:[facility] megan Start: 08-11-2023 End: 08-11-2023 Emergency department patient visit UNKNOWN PROVIDER Facility:[facility] Start: 08-11-2023 End: 08-11-2023 Emergency department patient visit Jessi Avina MD Work Phone: [facility] Emergency Medicine Comment on above: Abdominal pain (Pt h ad abd sx 1 week ago and states she is now having sharp pains near the site with lots of swelling and some redness. Pt had sx here. ) Start: 08-09-2023 ambulatory Iona Hidalgo RN [facility] Comment on above: Post-op Symptoms Start: 08-09-2023 End: 08-09-2023 Emergency department patient visit DO Kim Schwartz Work Phone: [facility]-Emergency Room Work Phone: Start: 08-04-2023 E.D. 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 MACHINE OPERATOR ALLI MACK Facility:[facility] Start: 05-23-2023 End: 05-23-2023 ambulatory SINGLE NEEDLE TUFTING MACHINE OPERATOR ALLI MACK Facility:[facility] Start: 05-18-2023 ambulatory Edi Quiñones Facility:[facility] [place] Start: 08-03-2022 End: 08-11-2022 Pre-admission assessment Dunia Cristina [facility] Start: 07-20-2022 End: 07-20-2022 Patient encounter procedure Dunianatacha Barfielde [facility] Start: 07-19-2022 End: 07-19-2022 Lab Drop off Dunia Clarisa Barfielde [facility] Start: 07-09-2022 End: 07-12-2022 Evaluation and management of inpatient MD Brionna See Work Phone: [facility] [place] [address] Work Phone: Start: 07-09-2022 End: 07-10-[address] BRIONNA SEE . Facility: Start: 04-11-2022 End: 04-11-2022 Emergency department patient visit Nevaeh Leahy [facility] Start: 03-23-2022 End: 03-23-2022 Emergency department patient visit Dino Mccollum [facility] Start: 02-28-2022 End: 02-28-2022 ambulatory Jack Khan Other [employer] Other Start: 02-28-2022 [facility] visit new patient Jack PALMA [facility] Start: 02-24-2022 End: 02-24-[address] BRIONNA SEE . Facility: Start: 11-25-2021 End: 11-25-[address] BRIONNA SEE . Facility:[facility] Start: 11-22-2021 End: 11-22-[address] BRIONNA SEE . Facility:[facility] Start: 09-09-2021 End: 09-10-[address] BRIONNA SEE . Facility:[facility] Start: 08-17-2021 End: 08-18-[address] BRIONNA SEE . Facility: Procedures Date Procedure Procedure Detail Performing Clinician Start: 03-28-2024 Urnls dip stick/tabl et rgnt non-auto w/o micrscp Ivethchristen Cabreraiqra DO Work Phone: Start: 02-29-2024 Chlamydia culture Juanita Cabreraiqra DO Work Phone: Start: 02-29-2024 Iadna chlamydia trachomatis amplified probe tq Iveth Pemberton DO Work Phone: Start: 02-29-2024 Urnls dip stick/tabl et rgnt non-auto w/o micrscp Iveth Pemberton DO Work Phone: Start: 12-03-2023 Computed tomography of abdomen and [...] Schwartz Work Phone: Sigmoid colectomy Refugio [facility] Plan of Treatment Date Care Activity Detail Author Start: 2053 Shingles (RZV) Vacci ne (1 of 2) Shingles (RZV) Vaccine (1 of 2) [facility] Start: 02-13-2026 Tetanus vaccination Tetanus (T d or Tdap) Booster [facility] Start: 06-20-2024 ambulatory Ambulatory Facility:[facility] Start: 04-25-2024 End: 04-25-2024 Patient encounter procedure 04/25/2024 11:00 AM EST Routine [facility] [address] [place] [address] Iveth Pemberton, DO [address] [place] [address] [facility] Start: 04-25-2024 End: 04-25-2024 Professional / ancillary services management 04/25/2024 10:15 AM EST Ancillary Procedure [facility] [address] [place] [id number] [facility] Start: 03-28-2024 End: 03-28-2024 Patient encounter procedure [facility] Comment on above: 16 weeks gestation o f Start: 02-29-2024 End: 02-29-2024 ambulatory 02/29/2024 10:30 AM EST Initial [facility] [address] [place] [phone] Iveth Pemberton, DO [address] [place] [address] [facility] Start: 01-29-2024 End: 01-29-2024 Professional / ancillary services management 01/29/2024 8:45 AM EDT Ancillary Procedure [facility] [address] [place] [address] [facility] Start: 01-24-2024 End: 01-23-2025 Bacteria identified in Urine by Culture Urine culture Microbiology Routine Encounter for supervision of normal first in first trimester Expected: 01/24/2024 (Approximate), Expires: 01/23/2025 [facility] Comment on above: Expected: 01/24/2024 (Approximate), Expires: 01/23/2025 Start: 01-24-2024 End: 01-23-2025 Blood type and Indirect antibody screen panel - Blood Type and screen Lab Routine Encounter for supervision of normal first in first trimester Expected: 01/24/2024 (Approximate), Expires: 01/23/2025 [facility] Comment on above: Expected: 01/24/2024 (Approximate), Expires: 01/23/2025 Start: 01-24-2024 End: 01-23-2025 CBC W Auto Differential panel - Blood CBC and differential Lab Routine Encounter for supervision of normal first in first trimester Expected: 01/24/2024 (Approximate), Expires: 01/23/2025 [facility] Comment on above: Expected: 01/24/2024 (Approximate), Expires: 01/23/2025 Start: 01-24-2024 End: 01-23-2025 Drugs of abuse panel - Urine by Screen method Rapid drug screen, urine Lab Routine Encounter for supervision of normal first in first trimester Encounter for drug screening Expected: 01/24/2024 (Approximate), Expires: 01/23/2025 [facility] Comment on above: Expected: 01/24/2024 (Approximate), Expires: 01/23/2025 Start: 01-24-2024 End: 01-23-2025 Hepatitis B virus surface Ag [Presence] in Serum or Plasma by Immunoassay Hepatitis B surface antigen Lab Routine Encounter for supervision of normal first in first trimester Expected: 01/24/2024 (Approximate), Expires: 01/23/2025 [facility] Comment on above: Expected: 01/24/2024 (Approximate), Expires: 01/23/2025 Start: 01-24-2024 End: 01-23-2025 Hepatitis C virus Ab [Presence] in Serum or Plasma by Immunoassay Hepatitis C antibody Lab Routine Encounter for supervision of normal first in first trimester Expected: 01/24/2024 (Approximate), Expires: 01/23/2025 [facility] Comment on above: Expected: 01/24/2024 (Approximate), Expires: 01/23/2025 Start: 01-24-2024 End: 01-23-2025 HIV-1/HIV-2 antigen/antibody combination immunoassay HIV-1 and HIV-2 antibodies Lab Routine Encounter for supervision of normal first in first trimester Expected: 01/24/2024 (Approximate), Expires: 01/23/2025 [facility] Comment on above: Expected: 01/24/2024 (Approximate), Expires: 01/23/2025 Start: 01-24-2024 End: 01-23-2025 Reagin Ab [Presence] in Serum by RPR RPR Lab Routine Encounter for supervision of normal first in first trimester Expected: 01/24/2024 (Approximate), Expires: 01/23/2025 [facility] Comment on above: Expected: 01/24/2024 (Approximate), Expires: 01/23/2025 Start: 01-24-2024 End: 01-23-2025 Rubella antibody, IgG Rubella antibody, IgG Lab Routine Encounter for supervision of normal first in first trimester Expected: 01/24/2024 (Approximate), Expires: 01/23/2025 [facility] Comment on above: Expected: 01/24/2024 (Approximate), Expires: 01/23/2025 Start: 01-24-2024 End: 01-23-2025 Urinalysis complete panel - Urine Urinalysis with microscopic Lab Routine Encounter for supervision of normal first in first trimester Expected: 01/24/2024 (Approximate), Expires: 01/23/2025 [facility] Work Phone: Comment on above: Expected: 01/24/2024 (Approximate), Expires: 01/23/2025 Start: 12-03-2023 Bacteria identified in Urine by Culture [facility] Start: 12-03-2023 [facility] Start: 08-03-2023 [facility] Start: 07-12-2022 [facility] Start: 07-09-2022 Referral to Demand Inspector [facility] Start: 07-09-2022 Sleep disorder assessment [facility] Start: 07-09-2022 Hospital admission [facility] Start: 2022 Hepatitis A (HAV) Vaccine (optional [...] papillomavirus HPV Vaccine (1 - 2-dose series) [facility] Start: 02-13-2005 Hepatitis B vaccination Hepati tis B (HBV) Vaccine (2 of 3 - 3-dose series) [facility] Start: 2003 COVID-19 Vaccine (#1) COVID-19 Vacci ne (#1) [facility] Start: 2003 Hepatitis B vaccination Hepati tis B (HBV) Vaccine (1 of 3 - 3-dose series) [facility] CT Abdomen and Pelvi s W contrast IV CT ABD/PELVIS ED I/V ARIA W/ CONTRAST Imaging STAT 08/11/2023 2:38 AM EDT [facility] fentaNYL [Mass/volum e] in Serum or Plasma [facility] Norfentanyl [Mass/volume] in Serum or Plasma [facility] Patient [facility] Work Phone: Patient referral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 patient punched a tree, and x-ray from [facility] was negative for fracture. The patient [...] signed by Dean Solis MD> 07/11/22 0851 [facility] Work Phone: 1(862) 883-395512-27-2022 Hospital Discharge instructions Patient Education 04/11/2022 12:35:07 Hemorrhoids, Kfbl-zn-Qspg Hemorrhoids Hemorrhoids are swollen veins that may [...] 3 times a day. General instructions Take jtca-xuf-xkyhuob and prescription medicines only as told by [...] 01/09/2009 Document Revised: 04/10/2019 Document Reviewed: 08/22/2018 DNA Direct Patient Education 2020 [employer]. Follow Up Care 04/11/2022 11:59:16 With:Rodolfo SOSA Address: [address], [address] [address]- Business (1) When:04/14/2022 12:28:41 Comments:Follow-up with Dr. Sosa for further evaluation of your hemorrhoids. With:BRIONNA SEE Address: [address] [place] [id number] Business (1) When:04/14/2022 12:28:33 Comments:Follow-up with your primary care provider in 3 to 5 days. If symptoms worsen, do not improve, or new symptoms arise please report back to emergency department for further evaluation. [facility]12-08-2022 Evaluation + Plan noteExtracted from: Title:ED [...] PCR Influenza A&B Ag Rapid COVID Antigen ([facility]) Rapid Strep w/rfx [facility]12-08-2022 Hospital Discharge instructions Patient Education 03/23/2022 02:03:19 Upper Respiratory Infection, Adult, Lykk-fi-Qbbq Upper Respiratory Infection, Adult An upper respiratory [...] and other clear broths. General instructions Take jcpj-gmu-lriaqwk and prescription medicines only as told by [...] not have soap and water, use hand turning machine set up operator. Avoid touching your mouth, face, eyes, or [...] get better within 7 10 days. Take ztng-wzh-pfmfybj and prescription medicines only as told by your doctor. This information is not intended to replace advice given to you by your health care provider. Make sure you discuss any questions you have with your health care provider. Document Released: 09/18/2008 Document Revised: 04/10/2019 Document Reviewed: 11/23/2017 DNA Direct Patient Education 2020 [employer]. Follow Up Care 03/23/2022 01:03:44 With:BRIONNA SEE Address: [address] [place] [address] Business (1) When:03/26/2022 Comments:You can take the cough medication every 6 hours as needed for cough. Use Motrin, Tylenol every 6 hours as needed for pain. Please follow-up with your primary care doctor next 2 to 3 days. Please return to the ED for any new or worsening symptoms. [facility]11-15-2022 Evaluation note* Encounter Date Diagnosis Assessment [...] and elevate to decrease pain and swelling. [employer] Other 11-11-2022 NotePROCEDURE: XR HAND RT MIN [...] Electronically authenticated by: SILVANA AVERY Date: 2022-02-24 12:40[facility]11-11-2022 NotePROCEDURE: XR HAND RT MIN 3V, [...] Electronically authenticated by: SILVANA AVERY Date: 2022-02-24 12:40[facility]05-27-2022 NoteEEG Procedure Date:09/09/2021 CLINICAL HISTORY: This [...] evidence of epileptiform activity. Please correlate clinically.[facility] Future Appointments Appointment Date:07/21/2022 02:30:00 PM Scheduled Provider: Location[facility] Appointment Type:US Abdominal/Pelvis (FT) Diagnostic Tests Pending * Chlamydia/Gonococcus, ANUP 07/19/22 Future Scheduled Tests Radiology* US Pelvis Non-OB Complete 07/21/22 * US Transvaginal Non-OB 07/21/22 [facility] Future Appointments Appointment Date:07/21/2022 02:30:00 PM Scheduled Provider: Location:.[facility] Appointment Type:US Abdominal/Pelvis (FT) Diagnostic Tests Pending * DHEAS 07/20/22 * FSH and LH 07/20/22 * Insulin Level Total 07/20/22 * Testosterone Level Total 07/20/22 Future Scheduled Tests Radiology* US Pelvis Non-OB Complete 07/21/22 * US Transvaginal Non-OB 07/21/22 [facility] Future Appointments Appointment Date:12/24/2023 02:40:00 PM Scheduled Provider:ALLI MACK CNP [facility] Diagnosis Onset Date Resolution Status Major depressive disorder, recurrent, moderate acute Suicidal ideation acute [facility] Work Phone: Evaluation noteNo assessment information available [facility] Work Phone: Evaluation note* Diagnosis Generalized abdominal pain- Primary Abdominal pain, generalized Nausea Nausea alone History of colectomy Other postprocedural status [facility] Diagnosis Encounter for supervision of normal first in first trimester Encounter for drug screening [facility] Diagnosis 12 weeks gestation of - Primary Screen for sexually transmitted diseases Screening examination for venereal disease Anxiety and depression (CMS/HCC) [facility]* Diagnosis 16 weeks gestation of - Primary Nausea and vomiting in Unspecified vomiting of , unspecified as to episode of care [facility] Narrative - Reported* Type Description Date Medical History right hand injury [employer] Other Hospital course Narrative No data available for this section [facility] Additional Instructions Regular diet No [facility] Work Phone: Hospital Discharge instructions No data available for this section [facility] No data available for this section [facility] Summary Purpose Family History No Family [...] Active Rajesh Solis MD Admit Provider, Attending Georgiana villalobos Active Team Status: Active Member Role Status [...] December 03, 2023 End: December 03, 2023 Orthotist Or Prosthetist Relationship Specialty Start Date End Date Brionna See MD [address] [place] [address] PCP - General Family Medicine 09/13/23 Orthotist Or Prosthetist Relationship Specialty Start Date End Date Brionna See MD [address] [place] [address] PCP - General Family Medicine 09/13/23 Orthotist Or Prosthetist Relationship Specialty Start Date End Date Brionna See MD [address] [place] [address] PCP - General Family Medicine 09/13/23 Orthotist Or Prosthetist Relationship Specialty Start Date End Date Brionna See MD [facility] [place] [address] PCP - General Family Medicine 09/13/23 Orthotist Or Prosthetist Relationship Specialty Start Date End Date Brionna See MD [address] [place] [phone] PCP - General Family Medicine 09/13/23 INFORMATION SOURCE (unrecogn ized section and content) DATE CREATED AUTHOR 07/14/2022 [facility] DATE CREATED AUTHOR AUTHOR'S ORGANIZ ATION 09/06/2023 [facility] [employer] DATE CREATED AUTHOR AUTHOR'S ORGANIZ ATION 09/30/2023 [facility] DATE CREATED AUTHOR AUTHOR'S ORGANIZ ATION 12/07/2023 [facility] DATE CREATED AUTHOR AUTHOR'S ORGANIZ ATION 12/25/2023 [facility] [facility] DATE CREATED AUTHOR AUTHOR'S ORGANIZ ATION 03/18/2024 [facility] DATE CREATED AUTHOR AUTHOR'S ORGANIZ ATION 03/30/2024 [facility] EPIC Goals (unrecognized section and content) [...] (IV New Bag - P rovider: Denise Tolbert RN)0443 (IV Stop - Provider: Denise Tolbert RN) ondansetron (ZOFRAN) 4 MG/2ML injection (COMPLETED) 4 mg, Intravenous Push, STAT, 1 dose, On 08/10/23 at [id number] (Given - Provid er: Sanju Richards) FOR [...] BE BASED ON THE PRIMARY CLINICAL RECORDS. [employer] [facility]. provides no warranty or guarantee of the accuracy or completeness of information in this document.
--- NOTE | 2024-04-05 13:44 | US_ITS ---
[place] [id number] Patient Name: LENY MALIK MRN: [id number] date: 2005 Sex: F Assigned Patient Location: ER Current Patient Location: ER Accession/Order Number: [id number] Exam Date: 04/05/2024 13:45 Report Date: 04/05/2024 14:35 At the request of: SATURNINO PEDRO Procedure: US OB >= 14 weeks Fetus PROCEDURE: US OB >= 14 weeks Fetus, 04/05/2024 1:45 PM EST CLINICAL INDICATIONS: Cramping, traumatic injury, contusion last p.m., decreased movement 1 para 0 Expected gestational age: 18 weeks 0 days Expected MAURICE: 09/06/2024 COMPARISON: None TECHNIQUE: Transabdominal second trimester obstetric sonogram, grayscale, color evaluation. FINDINGS: EVALUATION Number of Fetuses : 1 Presentation: Breech Heart Rate: 160 bpm. Placenta: Posterior, no sign of previa or hemorrhage GESTATIONAL AGE: Provided gestational age: 18 weeks 0 days Provided MAURICE: 09/06/2024 Sonographic gestational age: 17 weeks 2 days +/- 1 week 1 day Sonographic MAURICE: 09/11/2024 BIOMETRY: BPD: 3.7 cm, 17 weeks 1 day, 18 percentile. HC: 13.0 cm, 16 weeks 4 days, less than 3 percentile. AC: 11.3 cm, 17 weeks 1 day, 20 percentile. FL: 2.8 cm, 18 weeks 3 days, 62 percentile. Estimated weight 203 g +/- 31 g. 24 percentile Growth ratios: CI: 82.9 FL/BPD: 75.4 HC/AC: 1.15 FL/AC: 24.4 FL/HC: 21.34, normal range 14.94-17.71 ANATOMY: Not evaluated MATERNAL FINDINGS: No maternal adnexal abnormality. US/US OB >= 14 weeks Fetus IMPRESSION: 1. Living intrauterine , breech presentation. 2. Composite sonographic age 17 weeks 2 days +/- 1 week 1 day. 3. Estimated weight 203 g, 24 percentile. 4. Posterior grade 0 placenta, no sign of previa or hemorrhage. Electronically authenticated by: KRZYSZTOF PERRIN Date: 04/05/2024 14:35
[2024-04-05 14:59] VITALS: BP 130/82; PULSE 88; O2SAT 98
--- NOTE | 2024-04-05 17:25 | ED_ITS ---
HPI HPI - Fall General Chief Complaint: Fall Stated Complaint: FALL 18 WEEKS Time Seen by Provider: 04/05/24 13:18 Source: patient Mode of arrival: walk-in History of Present Illness HPI Narrative: The patient tripped yesterday while she is walking and fell on her stomach and she is 18 weeks , she had no abdominal pain and she had no bleeding but her concerned that she is not feeling the fetus in her uterus as she used to and she is concerned that there is something wrong No other concerns Related Data Home Medications ?Medication ?Instructions ?Recorded ?Confirmed ondansetron 4 mg disintegrating 4 mg PO Q8H PRN nausea and vomiting 02/12/24 04/05/24 tablet bupropion HCl 150 mg tablet,12 hr 150 mg PO Q12H 04/05/24 04/05/24 sustained-release vit no.95-ferrous 1 tab PO DAILY 04/05/24 04/05/24 fumarate 28 mg-folic acid 800 mcg tablet () Allergies Allergy/AdvReac Type Severity Reaction Status Date / Time No Known Drug Allergies Allergy Verified 01/19/24 23:11 Opioid HPI Opioid Management Most Recent Pain and Opioid Data: Last Pain Scale 7 01/12/24 04:30 01/12/24 Review of Systems ROS Status of ROS 10 or more systems reviewed and unremark able except as noted in history and below [facility] Medical History (Updated 04/05/24 @ 14:54 by Ryann Villegas MD) Colon perforation ?K63.1 - Perforation of intestine (nontraumatic) (ICD-10) Social History Smoking status: Current every day smoker Little interest or pleasure in doing things: not at all Feeling down, depressed, or hopeless: not at all Exam Narrative Exam Narrative: Nurses notes and vital signs reviewed and patient is not hypoxic. General: Well-appearing and in no apparent distress. Skin: Warm, dry, no pallor noted. No rash. Head: Normocephalic, atraumatic. Neck: Supple, non-tender. Eye: Pupils are equal, round and EOMI. No scleral icterus. Ears, Nose, Mouth, and Throat: TM are clear, no nasal mucosal hypertrophy. Oral mucosa is moist, no posterior oropharynx erythema, uvula is mid-line Cardiovascular: Regular Rate and Rhythm without murmur, gallop or rub. Respiratory: No accessory muscle use or respiratory distress. Lungs are clear to auscultation, no wheezing, rales or rhonchi Chest Wall: no tenderness Back: No midline thoracic or lumbar vertebral tenderness. No CVA tenderness Musculoskeletal: normal ROM, no calf or popliteal tenderness, no lower extremity edema/swelling GI: Abdomen is soft, non-distended. Normal bowel sounds. No masses appreciated. No tenderness to palpation. No rebound, guarding, or rigidity noted. Gravid u terus Neurological: A&O x4. No cranial nerve dysfunction observed. No truncal ataxia. Moves all extremities. Sensation intact. Psychiatric: Cooperative and interactive. Normal mood and affect. Constitutional Vital Signs, click to edit/add: Last Vital Signs Temp 98.6 F 04/05/24 13:22 Pulse 88 04/05/24 14:59 Resp 16 04/05/24 14:59 BP 130/82 04/05/24 14:59 Pulse Ox 98 04/05/24 14:59 O2 Del Method Room Air 04/05/24 13:22 Course Vital Signs Vital signs: Vital Signs Temperature 98.6 F 04/05/24 13:22 Pulse Rate 89 04/05/24 13:22 Respiratory Rate 18 04/05/24 13:22 Blood Pressure 111/73 04/05/24 13:22 Pulse Oximetry 98 04/05/24 13:22 Oxygen Delivery Method Room Air 04/05/24 13:22 Temperature 98.6 F 04/05/24 13:22 Pulse Rate 88 04/05/24 14:59 Respiratory Rate 16 04/05/24 14:59 Blood Pressure 130/82 04/05/24 14:59 Pulse Oximetry 98 04/05/24 14:59 Oxygen Delivery Method Room Air 04/05/24 13:22 MDM - Fall MDM Narrative Medical decision making narrative: Ultrasound of the patient pelvis showed that she have no pathology detected within normal heart rate of the fetus and 17 days intrauterine live The patient is to follow up with primary care physician in next 2-3 days or to return to the emergency department should any of the signs or symptoms worsen or new symptoms develop. The patient agrees with the following Diagnosis and Treatment plan and the patient will be discharged home. Discharge Plan Discharge Chief Complaint: Fall Clinical Impression: Fall Patient Disposition: Home, Self-Care Time of Disposition Decision: 14:54 Condition: Good Prescriptions / Home Meds: No Action ondansetron 4 mg tablet,disintegrating 4 mg PO Q8H PRN (Reason: nausea and vomiting) bupropion HCl 150 mg tablet sustained-release 12 hr 150 mg PO Q12H PNV cmb#95-ferrous fumarate-FA [] 28 mg iron- 800 mcg tablet 1 tab PO DAILY Print Language: Romansh Instructions: Fall Prevention (ED) Referrals: Physician,Non-Staff, MD [Primary Care Provider] - 1 week Discharge Date/Time: 04/05/24 15:01
== END 2024-04-05 15:01 | disposition home or self-care (01) ==
PROVIDERS: Emergency Provider Emergency Medicine
DX: Z04.3 Encounter for examination and observation following other accident (principal); O99.332 Smoking (tobacco) complicating pregnancy, second trimester; F17.200 Nicotine dependence, unspecified, uncomplicated; Z3A.17 17 weeks gestation of pregnancy
CPT/HCPCS: 76815; 99284

== ENCOUNTER 2024-04-19 14:02 | Emergency (ER) | payer OTHER, SELFPAY ==
[2024-04-19 14:07] VITALS: BP 127/89; PULSE 85; TEMP 36.6; O2SAT 100; BMI 28.8
--- NOTE | 2024-04-19 14:19 | ECG_ITS ---
[facility] Test Date: 2024-04-19 Pat Name: LENY MALIK Department: Room: - Gender: Female Research Director: : [id number] Requested By: Osmany Perez Order Number: [id number] Reading MD: FAVIAN VOGEL Measurements Intervals Marcell Rate: 72 P: 32 ID: 120 QRS: 42 QRSD: 70 T: 3 QT: 350 QTc: 374 Interpretive Statements 1100 Sinus rhythm 1470 with occasional supraventricular premature complexes 4068 Nonspecific Twave abnormality 9140 abnormal rhythm ECG Compared to ECG 07/09/2022 16:19:54 No significant changes Electronically Signed On 04-20-2024 8:11:47 EST by FAVIAN VOGEL
[2024-04-19] MEDS: ONDANSETRON PF 4 MG/2 ML VIAL IV (14:52)
[2024-04-19] MEDS: 0.9 % SODIUM CHLORIDE 1,000 ML 999 ML IV (14:52)
[2024-04-19 14:57] LABS: Basophils Percent Auto 0.4 % (0.2-2.0); Bilirubin Urine NEGATIVE (NEGATIVE); Blood Urine NEGATIVE (NEGATIVE); Color Urine YELLOW (YELLOW); Eosinophils Absolute Auto 0.1 10^3/uL (0.0-0.7); Glucose Urine UA NEGATIVE (NEGATIVE); Hematocrit 33.6 % (36.0-48.0); Hemoglobin 11.7 g/dL (12.0-16.0); Immature Granulocytes Abs Auto 0.02 10^3/uL (0.00-0.03); Immature Granulocytes Pct Auto 0.2 % (0.0-0.5); Ketones Urine NEGATIVE (NEGATIVE); Leukocyte Esterase Urine NEGATIVE (NEGATIVE); Lymphocytes Absolute Auto 2.6 10^3/uL (1.2-3.8); Lymphocytes Percent Auto 25.6 % (20.5-60.0); Mean Corpuscular HGB Conc 34.8 g/dL (29.9-35.2); Mean Corpuscular Hemoglobin 32.9 pg (26.7-34.0); Mean Corpuscular Volume 94.4 fL (81.0-99.0); Mean Platelet Volume 10.2 fL (9.5-13.5); Monocytes Absolute Auto 0.8 10^3/uL (0.3-0.8); Monocytes Percent Auto 7.6 % (1.7-12.0); Neutrophils Absolute Auto 6.6 10^3/uL (1.4-6.5); Neutrophils Percent Auto 65.2 % (43.0-75.0); Nitrite Urine NEGATIVE (NEGATIVE); Platelet Count 252 10^3/uL (150-450); Protein Urine NEGATIVE (NEG/TRACE); Red Blood Count 3.56 10^6/uL (4.20-5.40); Red Cell Distribution Width 12.8 % (11.0-15.0); Specific Gravity Urine 1.025 (1.005-1.025); Urobilinogen Urine 0.2 EU/dL (0.2-1.0); White Blood Count 10.1 10^3/uL (4.0-11.0); pH Urine 7.5 (5.0-9.0)
[2024-04-19 14:58] LABS: Clarity Urine SLIGHTLY CLOUDY (CLEAR); Urine Microscopic Indicated NO
[2024-04-19 15:12] LABS: Alanine Aminotransferase 8 U/L (14-59); Albumin Globulin Ratio 0.9; Alkaline Phosphatase 38 U/L (46-116); Anion Gap 11.5; Aspartate Amino Transferase 9 U/L (15-37); BUN Creatinine Ratio 9.1; Bilirubin Total 0.3 mg/dL (0.2-1.0); Calcium 8.8 mg/dL (8.5-10.1); Carbon Dioxide 27.1 mmol/L (21.0-32.0); Chloride 104 mmol/L (98-107); Estimated GFR (African America >60 (>=60 mL/min/1.73m^2); Estimated GFR (Non-African Ame >60 (>=60 mL/min/1.73m^2); Globulin 3.3 g/dL; Glucose 75 mg/dL (74-106); Magnesium 1.6 mg/dL (1.8-2.4); Potassium 3.6 mmol/L (3.5-5.1); Sodium 139 mmol/L (136-145); Total Protein 6.3 g/dL (6.4-8.2)
--- NOTE | 2024-04-19 15:48 | ED.DIZZY1 ---
HPI - Dizziness General Chief Complaint: Dizziness Stated Complaint: DIZZINESS 20 WEEKS Time Seen by Provider: 04/19/24 14:10 Source: patient Mode of arrival: walk-in History of Present Illness HPI Narrative: Patient presents to the ED complaining of dizziness that started yesterday. She said that she had an episode in which she passed out. She is about 20 weeks and says that she does not have any complications related to her , which is her first. She sees an science analyst in [place]. She denied any abdominal or flank pain, vaginal bleeding or other symptoms suggesting that the is in jeopardy. She told me that she has been eating and drinking normally, no loss of fluid from vomiting or diarrhea. She says she has been eating well. She told me that she got dizzy slightly before she had the episode when she passed out. She was at work and apparently someone nearby was able to prevent her from hurting herself when she fell. She denies any injury to the head, neck, back or extremities. No injury to the abdomen. Today she once again felt dizzy so she decided to come to the ED for evaluation. She does admit to some increased urinary frequency. Related Data Home Medications ?Medication ?Instructions ?Recorded ?Confirmed ondansetron 4 mg disintegrating 4 mg PO Q8H PRN nausea and vomiting 02/12/24 04/05/24 tablet bupropion HCl 150 mg tablet,12 hr 150 mg PO Q12H 04/05/24 04/05/24 sustained-release vit no.95-ferrous 1 tab PO DAILY 04/05/24 04/05/24 fumarate 28 mg-folic acid 800 mcg tablet () Allergies Allergy/AdvReac Type Severity Reaction Status Date / Time No Known Drug Allergies Allergy Verified 01/19/24 23:11 [facility] Medical History (Updated 04/19/24 @ 15:52 by sOmany Perez) Colon perforation ?K63.1 - Perforation of intestine (nontraumatic) (ICD-10) Social History Smoking status: Current every day smoker Little interest or pleasure in doing things: not at all Feeling down, depressed, or hopeless: not at all Exam Narrative Exam Narrative: Nurses notes and vital signs reviewed and patient is not hypoxic. afebrile General: Well-appearing and in no apparent distress. Skin: Warm, dry, no pallor noted. No rash. Head: Normocephalic, atraumatic. Neck: Supple, non-tender. Eye: Pupils are equal, round and EOMI. No scleral icterus. Ears, Nose, Mouth, and Throat: TM are clear, no posterior oropharynx erythema or nasal mucosal hypertrophy, uvula is mid-line Oral mucosa is moist Cardiovascular: Regular Rate and Rhythm without murmur, gallop or rub. Respiratory: No accessory muscle use or respiratory distress. Lungs are clear to auscultation, no wheezing, rales or rhonchi Chest Wall: no tenderness Back: No midline thoracic or lumbar vertebral tenderness. No CVA tenderness Musculoskeletal: normal ROM, no calf or popliteal tenderness, no lower extremity edema/swelling GI: Abdomen is soft, non-distended. Normal bowel sounds. No masses appreciated. No tenderness to palpation. No rebound, guarding, or rigidity noted. Neurological: A&O x4. No cranial nerve dysfunction observed. No truncal ataxia. Moves all extremities. Sensation intact. Psychiatric: Cooperative and interactive. Normal mood and affect. Constitutional Vital Signs, click to edit/add: Last Vital Signs Temp 98 F 04/19/24 14:07 Pulse 85 04/19/24 14:07 Resp 20 04/19/24 14:07 BP 127/89 04/19/24 14:07 Pulse Ox 100 04/19/24 14:07 O2 Del Method Room Air 04/19/24 14:07 Course Vital Signs Vital signs: Vital Signs Temperature 98 F 04/19/24 14:07 Pulse Rate 85 04/19/24 14:07 Respiratory Rate 20 04/19/24 14:07 Blood Pressure 127/89 04/19/24 14:07 Pulse Oximetry 100 04/19/24 14:07 Oxygen Delivery Method Room Air 04/19/24 14:07 Temperature 98 F 04/19/24 14:07 Pulse Rate 85 04/19/24 14:07 Respiratory Rate 20 04/19/24 14:07 Blood Pressure 127/89 04/19/24 14:07 Pulse Oximetry 100 04/19/24 14:07 Oxygen Delivery Method Room Air 04/19/24 14:07 MDM - Dizziness MDM Narrative Medical decision making narrative: Patient was placed on cardiac cath lab radiology technologist and EKG obtained. Blood drawn and sent for evaluation. She was given a liter of normal saline IV fluid, IV Zofran. Urine was ordered to be sent for testing. Workup in the ED, which included CBC, CMP and urinalysis, was negative except for slightly decreased magnesium at 1.6. She was given 2 g of IV magnesium for repletion. She was informed of the test results. She felt better after ED treatment. She was discharged home with recommendation to follow-up with her science analyst. We discussed reasons to return the ED. Lab Data Attestation: I reviewed the patient's lab results. Labs: Lab Results 04/19/24 Range/Units 14:49 WBC 10.1 (4.0-11.0) 10^3/uL RBC 3.56 L (4.20-5.40) 10^6/uL Hgb 11.7 L (12.0-16.0) g/dL Hct 33.6 L (36.0-48.0) % MCV 94.4 (81.0-99.0) fL MCH 32.9 (26.7-34.0) pg MCHC 34.8 (29.9-35.2) g/dL RDW 12.8 (11.0-15.0) % Plt Count 252 (150-450) 10^3/uL MPV 10.2 (9.5-13.5) fL Neut % (Auto) 65.2 (43.0-75.0) % Lymph % (Auto) 25.6 (20.5-60.0) % [place] % (Auto) 7.6 (1.7-12.0) % Eos % (Auto) 1.0 (0.9-7.0) % Baso % (Auto) 0.4 (0.2-2.0) % Neut # (Auto) 6.6 H (1.4-6.5) 10^3/uL Lymph # (Auto) 2.6 (1.2-3.8) 10^3/uL [place] # (Auto) 0.8 (0.3-0.8) 10^3/uL Eos # (Auto) 0.1 (0.0-0.7) 10^3/uL Baso # (Auto) 0.0 (0.0-0.1) 10^3/uL Abs Immat Gran (auto) 0.02 (0.00-0.03) 10^3/uL Imm/Tot Granulo (auto) 0.2 (0.0-0.5) % Sodium 139 (136-145) mmol/L Potassium 3.6 (3.5-5.1) mmol/L Chloride 104 (98-107) mmol/L Carbon Dioxide 27.1 (21.0-32.0) mmol/L Anion Gap 11.5 BUN 5.0 L (7.0-18.0) mg/dL Creatinine 0.55 (0.55-1.02) mg/dL Est GFR ( Amer) >60 (>=60 mL/min/1.73m^2) Est GFR (Non-Af Amer) >60 (>=60 mL/min/1.73m^2) BUN/Creatinine Ratio 9.1 Glucose 75 (74-106) mg/dL Calcium 8.8 (8.5-10.1) mg/dL Magnesium 1.6 L (1.8-2.4) mg/dL Total Bilirubin 0.3 (0.2-1.0) mg/dL AST 9 L (15-37) U/L ALT 8 L (14-59) U/L Alkaline Phosphatase 38 L (46-116) U/L Total Protein 6.3 L (6.4-8.2) g/dL Albumin 3.0 L (3.4-5.0) g/dL Globulin 3.3 g/dL Albumin/Globulin Ratio 0.9 Urine Color Yellow (YELLOW) Urine Clarity Slightly cloudy A (CLEAR) Urine pH 7.5 (5.0-9.0) Ur Specific [place] 1.025 (1.005-1.025) Urine Protein Negative (NEG/TRACE) mg/dL Urine Glucose (UA) Negative (NEGATIVE) mg/dL Urine Ketones Negative (NEGATIVE) mg/dL Urine Occult Blood Negative (NEGATIVE) Urine Nitrite Negative (NEGATIVE) Urine Bilirubin Negative (NEGATIVE) Urine Urobilinogen 0.2 (0.2-1.0) EU/dL Ur Leukocyte Esterase Negative (NEGATIVE) ECG Data Attestation: I personally reviewed and interpreted this ECG as follows: Interpretation: EKG interpretation: Emergency Department physician interpretation. Normal sinus rhythm at 72bpm. Normal axis, normal intervals and nonspecific T wave changes. No ST segment elevation or depression. Discharge Plan Discharge Chief Complaint: Dizziness Clinical Impression: Dizziness, , Hypomagnesemia, Syncope Patient Disposition: Home, Self-Care Time of Disposition Decision: 16:02 Prescriptions / Home Meds: No Action ondansetron 4 mg tablet,disintegrating 4 mg PO Q8H PRN (Reason: nausea and vomiting) bupropion HCl 150 mg tablet sustained-release 12 hr 150 mg PO Q12H PNV cmb#95-ferrous fumarate-FA [] 28 mg iron- 800 mcg tablet 1 tab PO DAILY Print Language: Latvian Instructions: Syncope (ED), Hypomagnesemia (ED), Dizziness (ED), at 19 to 22 Weeks (ED) Referrals: Physician,Non-Staff, MD [Primary Care Provider] - 1 week
[2024-04-19] MEDS: MAGNESIUM SULFATE IN WATER 2 GM/50 ML PREMIX IV (16:13)
== END 2024-04-19 17:15 | disposition home or self-care (01) ==
PROVIDERS: Emergency Provider Emergency Medicine
DX: O99.282 Endocrine, nutritional and metabolic diseases complicating pregnancy, second trimester (principal); E83.42 Hypomagnesemia; O99.891 Other specified diseases and conditions complicating pregnancy; R55 Syncope and collapse; R42 Dizziness and giddiness; Z3A.20 20 weeks gestation of pregnancy; O99.332 Smoking (tobacco) complicating pregnancy, second trimester; F17.200 Nicotine dependence, unspecified, uncomplicated
CPT/HCPCS: 36415; 80053; 81003; 83735; 85025; 93005; 96361; 96365; 96375; 99285; J2405; J3475

== ENCOUNTER 2024-07-21 01:00 | Emergency (ER) | payer OTHER, SELFPAY ==
[2024-07-21] VITALS (11 sets, daily range): BP systolic 109–122; BP diastolic 81–90; PULSE 92–136; TEMP 37.1; O2SAT 97–100; BMI 32.6
--- OUTSIDE RECORDS SUMMARY | 2024-07-21 01:13 | XMS_ITS | CCD ---
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 ECG *CARDIOLOGY ONLY* [facility] [place] [address] [place] [address] Electrocardiograph Report Signed Patient: Thuy Malik MR#: [id number] 35 : 2005 Acct:[id number] Age/Sex: 18 / F ADM Date: 05/22/24 Loc: EKGCARDIO Room: Type: [facility] Attending Dr: Nafisa Lubin MD Ordering Provider: Nafisa Lubin MD Date of Service: 05/22/2410/08/1029 ECG/FPG ECG *CARDIOLOGY ONLY*: R00.2 - Palpitations Copies to: Test Reason : Blood Pressure : */* mmHG Vent. Rate : 103 BPM Atrial Rate : 103 BPM P-R Int : 124 ms QRS Dur : 76 ms QT Int : 320 ms P-R-T Axes : 26 60 -2 degrees QTcB Int : 419 ms Sinus tachycardia T wave abnormality, consider inferior ischemia Abnormal ECG Confirmed by Nafisa Lubin ([id number]) on 05/22/2024 6:13:37 PM Referred By: Electronically Signed By: Nafisa Lubin Transcribed By: MUS Signed By Nafisa Lubin MD 5 1813 Normal [facility] Alanine aminotransferase [En zymatic activity/volume] in Serum or PlasmaOrdered By: Iveth Pemberton on 05-14-2024 ALT [Catalytic activity/Vol] Alanine aminotransferase [Enzymatic activity/volume] in Serum or Plasma 7-52 [facility] Albumin [Mass/volume] in Ser um or Plasma by Bromocresol green (BCG) dye binding methoOrdered By: Iveth Pemberton on 05-14-2024 Albumin BCG dye [Mass/Vol] Albumin [Mass/volume] in Serum or Plasma by Bromocresol green (BCG) dye binding metho 3.5-5.7 [facility] Alkaline phosphatase [Enzyma tic activity/volume] in Serum or PlasmaOrdered By: Iveth Pemberton on 05-14-2024 ALP [Catalytic activity/Vol] Alkaline phosphatase [Enzymatic activity/volume] in Serum or Plasma 34-104 [facility] Aspartate aminotransferase [ Enzymatic activity/volume] in Serum or PlasmaOrdered By: Iveth Pemberton on 05-14-2024 AST [Catalytic activity/Vol] Aspartate aminotransferase [Enzymatic activity/volume] in Serum or Plasma Low 13-39 [facility] Basophils Auto (Bld) [#/Vol] Ordered By: Iveth Pemberton on 05-14-2024 Basophils (Bld) [#/Vol] Automated basophil count 0.0-0.2 [facility] Basophils/100 WBC Auto (Bld) Ordered By: Iveth Pemberton on 05-14-2024 Basophils/100 WBC (Bld) Automated basophil % . [facility] Bilirubin.total [Mass/volume ] in Serum or PlasmaOrdered By: Iveth Pemberton on 05-14-2024 Bilirubin [Mass/Vol] Bilirubin.total [Mass/volume] in Serum or Plasma 0.3-1.0 [facility] Calcium [Mass/volume] in Ser um or PlasmaOrdered By: Iveth Pemberton on 05-14-2024 Calcium [Mass/Vol] Calcium [Mass/volume ] in Serum or Plasma 8.6-10.3 [facility] Carbon dioxide, total [Moles /volume] in Serum or PlasmaOrdered By: Iveth Pemberton on 05-14-2024 CO2 [Moles/Vol] Carbon dioxide, tota l [Moles/volume] in Serum or Plasma 21.0-31.0 [facility] Chloride [Moles/volume] in S luciana or PlasmaOrdered By: Iveth Pemberton on 05-14-2024 Chloride [Moles/Vol] Chloride [Moles/vol ume] in Serum or Plasma 98-107 [facility] Complete Blood Count Auto Di ffon 05-14-2024 Basophils (Bld) [#/Vol] 0.1 10*3/uL Normal 0.0-0.2 [facility] Comment on above: Result Comment: PERF ORMED BY: [place] [address] PATHOLOGIST GROCERY CLERK SYLVIA ANDERSON M.D. Performed By: #### C BC #### [address] Basophils/100 WBC (Bld) 0.7 % Normal . [facility] Comment on above: Performed By: #### C BC #### [address] Eosinophils (Bld) [#/Vol] 0.1 10*3/uL Normal 0.0-0.45 [facility] Comment on above: Performed By: #### C BC #### [address] Eosinophils/100 WBC (Bld) 1.1 % Normal . [facility] Comment on above: Performed By: #### C BC #### [address] Erythrocyte distribution width (RBC) [Ratio] 12.8 % Normal 11.9-15.3 [facility] Comment on above: Performed By: #### C BC #### [address] Hematocrit (Bld) [Volume fraction] 33.4 % Low 34.0-46.4 [facility] Comment on above: Performed By: #### C BC #### [address] Hemoglobin (Bld) [Mass/Vol] 11.7 g/dL Low 11.8-15.4 [facility] Comment on above: Performed By: #### C BC #### [address] Lymphocytes (Bld) [#/Vol] 2.1 10*3/uL Normal 1.00-4.8 [facility] Comment on above: Performed By: #### C BC #### [address] Lymphocytes/100 WBC (Bld) 18.9 % Normal . [facility] Comment on above: Performed By: #### C BC #### [address] MCH (RBC) [Entitic mass] 32.3 pg Normal 24.7-34.3 [facility] Comment on above: Performed By: #### C BC #### [address] MCV (RBC) [Entitic vol] 92.7 fL Normal 80-100 [facility] Comment on above: Performed By: #### C BC #### [address] Mean Corpuscular HGB Conc 34.8 g/dL Normal 32.0-35.0 [facility] Comment on above: Performed By: #### C BC #### [address] Monocytes (Bld) [#/Vol] 0.8 10*3/uL Normal 0.0-0.8 [facility] Comment on above: Performed By: #### C BC #### [address] Monocytes/100 WBC (Bld) 6.8 % Normal . [facility] Comment on above: Performed By: #### C BC #### [address] Neutrophils (Bld) [#/Vol] 8.0 10*3/uL High 1.8-7.7 [facility] Comment on above: Performed By: #### C BC #### [address] Neutrophils/100 WBC (Bld) 72.5 % Normal . [facility] Comment on above: Performed By: #### C BC #### [address] NRBC% 0.1 /100{WBC} Normal 0-0.5 [facility] Comment on above: Performed By: #### C BC #### [address] Platelet mean volume (Bld) [Entitic vol] 8.6 fL Normal 6.3-10.7 [facility] Comment on above: Performed By: #### C BC #### [address] Platelets (Bld) [#/Vol] 283 10*3/uL Normal 150-450 [facility] Comment on above: Performed By: #### C BC #### [address] RBC (Bld) [#/Vol] 3.61 10*6/uL Normal 3.60-5.00 [facility] Comment on above: Performed By: #### C BC #### [address] WBC (Bld) [#/Vol] 11.1 10*3/uL Normal 3.8-11.6 [facility] Comment on above: Performed By: #### C BC #### [address] Comprehensive Metabolic Pane kay 05-14-2024 Albumin [Mass/Vol] 3.6 g/dL Normal 3.5-5.7 [facility] Comment on above: Performed By: #### U A, OBUDS #### [address] Albumin/Globulin [Mass ratio] 1.4 {ratio} Normal [facility] Comment on above: Performed By: #### U A, OBUDS #### [address] ALP [Catalytic activity/Vol] 46 U/L Normal 34-104 [facility] Comment on above: Result Comment: PERF ORMED BY: [place] [address] PATHOLOGIST GROCERY CLERK SYLVIA ADNERSON M.D. Performed By: #### U A, OBUDS #### [address] ALT [Catalytic activity/Vol] 7 U/L Normal 7-52 [facility] Comment on above: Performed By: #### U A, OBUDS #### [address] Anion gap [Moles/Vol] 7.8 mmol/L Normal 6.0-15.0 [facility] Comment on above: Performed By: #### U A, OBUDS #### [address] AST [Catalytic activity/Vol] 10 U/L Low 13-39 [facility] Comment on above: Performed By: #### U A, OBUDS #### [address] Bilirubin [Mass/Vol] 0.6 mg/dL Normal 0.3-1.0 [facility] Comment on above: Performed By: #### U A, OBUDS #### [address] Calcium [Mass/Vol] 8.9 mg/dL Normal 8.6-10.3 [facility] Comment on above: Performed By: #### U A, OBUDS #### [place] [address] [place] Chloride [Moles/Vol] 104 mmol/L Normal 98-107 [facility] Comment on above: Performed By: #### U A, OBUDS #### [address] CO2 [Moles/Vol] 27.7 mmol/L Normal 21.0-31.0 [facility] Comment on above: Performed By: #### U A, OBUDS #### [address] Creatinine [Mass/Vol] 0.57 mg/dL Low 0.60-1.20 [facility] Comment on above: Performed By: #### U A, OBUDS #### [place] [address] [place] GFR/1.73 sq M.predicted MDRD (S/P/Bld) [Vol rate/Area] mL/min/{1.73_m2} Normal [facility] Comment on above: Performed By: #### U A, OBUDS #### [address] Globulin (S) [Mass/Vol] 2.5 g/dL Normal [facility] Comment on above: Performed By: #### U A, OBUDS #### [address] Glucose [Mass/Vol] 72 mg/dL Normal 70-100 [facility] Comment on above: Result Comment: [place] Glucose Reference Range is dependent on time and content of last meal. Glucose of more than 200 mg/dL in a nonstressed, ambulatory subject supports the diagnosis of Diabetes Mellitus. ADA recommended reference range Performed By: #### U A, OBUDS #### [address] Potassium [Moles/Vol] 4.5 mmol/L Normal 3.5-5.1 [facility] Comment on above: Performed By: #### U A, OBUDS #### [address] Protein [Mass/Vol] 6.1 g/dL Low 6.4-8.9 [facility] Comment on above: Performed By: #### U A, OBUDS #### [facility] [address] Sodium [Moles/Vol] 135 mmol/L Low 136-145 [facility] Comment on above: Performed By: #### U A, OBUDS #### [facility] [address] Urea nitrogen [Mass/Vol] 8 mg/dL Normal 7-25 [facility] Comment on above: Performed By: #### U A, OBUDS #### [facility] [address] Creatinine [Mass/volume] in Serum or PlasmaOrdered By: Iveth Pemberton on 05-14-2024 Creatinine [Mass/Vol] Creatinine [Mass/v olume] in Serum or Plasma Low 0.60-1.20 [facility] ECG 12 lead ECGon 05-14-2024 ECG 12 lead ECG [facility] [address] Electrocardiograph Report Signed Patient: Thuy Malik MR#: [id number] 35 : 2005 Acct:[id number] Age/Sex: 18 / F ADM Date: 05/14/24 Loc: Room: Type: [facility] Attending Dr: Iveth Pemberton DO Ordering Provider: Iveth Pemberton DO Date of Service: 05/14/24 ECG/ECG 12 lead ECG: see order Copies to: Test Reason : Blood Pressure : */* mmHG Vent. Rate : 96 BPM Atrial Rate : 96 BPM P-R Int : 96 ms QRS Dur : 84 ms QT Int : 330 ms P-R-T Axes : 29 45 -11 degrees QTcB Int : 416 ms Sinus rhythm with short [place] Nonspecific T wave abnormality Confirmed by Nafisa Lubin ([id number]) on 05/14/2024 11:52:56 PM Referred By: Electronically Signed By: Nafisa Lubin Transcribed By: MUS Signed By Nafisa Lubin MD 5 2353 Normal [facility] Eosinophils Auto (Bld) [#/Vo l]Ordered By: Iveth Pemberton on 05-14-2024 Eosinophils (Bld) [#/Vol] Automated eosinophil count 0.0-0.45 [facility] Eosinophils/100 WBC Auto (Bl d)Ordered By: Iveth Pemberton on 05-14-2024 Eosinophils/100 WBC (Bld) Automated eosinophil % . [facility] Erythrocyte distribution wid th Auto (RBC) [Ratio]Ordered By: Iveth Pemberton on 05-14-2024 Erythrocyte distribution width (RBC) [Ratio] Erythrocyte distribution width [Ratio] by Automated count 11.9-15.3 [facility] Globulin Calc (S) [Mass/Vol] Ordered By: Iveth Pemberton on 05-14-2024 Globulin (S) [Mass/Vol] Serum globulin measurement by calculation (mass/volume) [facility] Glucose [Mass/volume] in Ser um or PlasmaOrdered By: Iveth Pemberton on 05-14-2024 Glucose [Mass/Vol] Glucose [Mass/volume ] in Serum or Plasma 70-100 [facility] Comment on above: ADA recommended refe rence rangeRandom Glucose Reference Range is dependent on time and content of last meal. Glucose of more than 200 mg/dL in a nonstressed, ambulatory subject supports the diagnosis of Diabetes Mellitus. Hematocrit Auto (Bld) [Volum e fraction]Ordered By: Iveth Pemberton on 05-14-2024 Hematocrit (Bld) [Volume fraction] Hematocrit [Volume Fraction] of Blood by Automated count Low 34.0-46.4 [facility] Hemoglobin [Mass/volume] in BloodOrdered By: Iveth Pemberton on 05-14-2024 Hemoglobin (Bld) [Mass/Vol] Hemoglobin [Mass/volume] in Blood Low 11.8-15.4 [facility] Leukocytes [#/volume] correc boris for nucleated erythrocytes in Blood by Automated counOrdered By: Iveth Pemberton on 05-14-2024 WBC corrected for nucl RBC Auto (Bld) [#/Vol] Leukocytes [#/volume] corrected for nucleated erythrocytes in Blood by Automated coun 3.8-11.6 [facility] Lymphocytes Auto (Bld) [#/Vo l]Ordered By: Iveth Pemberton on 05-14-2024 Lymphocytes (Bld) [#/Vol] Lymphocytes [#/volume] in Blood by Automated count 1.00-4.8 [facility] Lymphocytes/100 WBC Auto (Bl d)Ordered By: Iveth Pemberton on 05-14-2024 Lymphocytes/100 WBC (Bld) Lymphocytes/100 leukocytes in Blood by Automated count . [facility] MCH Auto (RBC) [Entitic mass ]Ordered By: Iveth Pemberton on 05-14-2024 MCH (RBC) [Entitic mass] MCH [Entitic mass] by Automated count 24.7-34.3 [facility] MCHC Auto (RBC) [Mass/Vol]Or dered By: Iveth Pemberton on 05-14-2024 MCHC (RBC) [Mass/Vol] MCHC [Mass/volume] by Automated count 32.0-35.0 [facility] MCV Auto (RBC) [Entitic vol] Ordered By: Iveth Pemberton on 05-14-2024 MCV (RBC) [Entitic vol] MCV [Entitic volume] by Automated count 80-100 [facility] Magnesiumon 05-14-2024 Magnesium [Mass/Vol] 1.6 mg/dL Low 1.9-2.7 [facility] Comment on above: Result Comment: PERF ORMED BY: [place] [address] PATHOLOGIST GROCERY CLERK SYLVIA ANDERSON M.D. Performed By: #### U A, OBUDS #### [address] Magnesium [Mass/volume] in S luciana or PlasmaOrdered By: Iveth Pemberton on 05-14-2024 Magnesium [Mass/Vol] Magnesium [Mass/vol ume] in Serum or Plasma Low 1.9-2.7 [facility] Monocytes Auto (Bld) [#/Vol] Ordered By: Iveth Pemberton on 05-14-2024 Monocytes (Bld) [#/Vol] Automated blood monocyte count 0.0-0.8 [facility] Monocytes/100 WBC Auto (Bld) Ordered By: Ievth Pemberton on 05-14-2024 Monocytes/100 WBC (Bld) Automated monocyte % . [facility] Neutrophils Auto (Bld) [#/Vo l]Ordered By: Iveth Pemberton on 05-14-2024 Neutrophils (Bld) [#/Vol] Neutrophils [#/volume] in Blood by Automated count High 1.8-7.7 [facility] Neutrophils/100 WBC Auto (Bl d)Ordered By: Iveth Pemberton on 05-14-2024 Neutrophils/100 WBC (Bld) Automated neutrophil % . [facility] No Panel InformationOrdered By: Iveth Pemberton on 05-14-2024 Estimated GFR (CKD-EPI) > 60.0 mL/Min [facility] Creatinine Clearance (Chem N/A [facility] Nucleated erythrocytes [Pres ence] in Blood by Automated countOrdered By: Iveth Pemberton on 05-14-2024 Nucleated RBC Auto Ql (Bld) Nucleated erythrocytes [Presence] in Blood by Automated count 0-0.5 [facility] Platelet mean volume Auto (B ld) [Entitic vol]Ordered By: Iveth Pemberton on 05-14-2024 Platelet mean volume (Bld) [Entitic vol] Platelet mean volume [Entitic volume] in Blood by Automated count 6.3-10.7 [facility] Platelets Auto (Bld) [#/Vol] Ordered By: Iveth Pemberton on 05-14-2024 Platelets (Bld) [#/Vol] Platelets [#/volume] in Blood by Automated count 150-450 [facility] Potassium [Moles/volume] in Serum or PlasmaOrdered By: Iveth Pemberton on 05-14-2024 Potassium [Moles/Vol] Potassium [Moles/v olume] in Serum or Plasma 3.5-5.1 [facility] Protein [Mass/volume] in Ser um or PlasmaOrdered By: Iveth Pemberton on 05-14-2024 Protein [Mass/Vol] Protein [Mass/volume ] in Serum or Plasma Low 6.4-8.9 [facility] RBC Auto (Bld) [#/Vol]Ordere d By: Iveth Pemberton on 05-14-2024 RBC (Bld) [#/Vol] Erythrocytes [#/volu me] in Blood by Automated count 3.60-5.00 [facility] Serum or plasma albumin/glob ulin mass ratioOrdered By: Iveth Pemberton on 05-14-2024 Albumin/Globulin [Mass ratio] Serum or plasma albumin/globulin mass ratio [facility] Serum or plasma anion gap de terminationOrdered By: Iveth Pemberton on 05-14-2024 Anion gap [Moles/Vol] Serum or plasma an ion gap determination 6.0-15.0 [facility] Sodium [Moles/volume] in Ser um or PlasmaOrdered By: Iveth Pemberton on 05-14-2024 Sodium [Moles/Vol] Sodium [Moles/volume ] in Serum or Plasma Low 136-145 [facility] Urea nitrogen [Mass/volume] in Serum or PlasmaOrdered By: Iveth Pemberton on 05-14-2024 Urea nitrogen [Mass/Vol] Urea nitrogen [Mass/volume] in Serum or Plasma 7-25 [facility] WBC Auto (Bld) [#/Vol]Ordere d By: Iveth Pemberton on 05-14-2024 WBC (Bld) [#/Vol] Leukocytes [#/volume ] in Blood by Automated count 3.8-11.6 [facility] B-Type Natriuretic Peptideon 05-05-2024 Natriuretic peptide B (Bld) [Mass/Vol] 26.0 pg/mL Normal 5-100 [facility] Comment on above: Result Comment: PERF ORMED BY: [facility] [address] [place] [address] PATHOLOGIST GROCERY CLERK SYLVIA ANDERSON M.D. Performed By: #### C EPHEID NEG, COVID19 FLU RSV, ADDONUAPLUS, UHCG #### [facility] [address] Basic Metabolic Panelon 04-17 Anion gap [Moles/Vol] 10.3 mmol/L Normal 6.0-15.0 [facility] Comment on above: Performed By: #### C EPHEID NEG, COVID19 FLU RSV, ADDONUAPLUS, UHCG #### [address] Calcium [Mass/Vol] 8.9 mg/dL Normal 8.6-10.3 [facility] Comment on above: Performed By: #### C EPHEID NEG, COVID19 FLU RSV, ADDONUAPLUS, UHCG #### [address] Chloride [Moles/Vol] 105 mmol/L Normal 98-107 [facility] Comment on above: Performed By: #### C EPHEID NEG, COVID19 FLU RSV, ADDONUAPLUS, UHCG #### [address] CO2 [Moles/Vol] 23.9 mmol/L Normal 21.0-31.0 [facility] Comment on above: Performed By: #### C EPHEID NEG, COVID19 FLU RSV, ADDONUAPLUS, UHCG #### [address] Creatinine [Mass/Vol] 0.64 mg/dL Normal 0.60-1.20 [facility] Comment on above: Performed By: #### C EPHEID NEG, COVID19 FLU RSV, ADDONUAPLUS, UHCG #### [address] Creatinine Clr Calc Pharmacy 143.84 Normal [facility] Comment on above: Result Comment: PERF ORMED BY: [place] [address] PATHOLOGIST GROCERY CLERK SYLVIA ANDERSON M.D. Performed By: #### C EPHEID NEG, COVID19 FLU RSV, ADDONUAPLUS, UHCG #### [place] [address] [place] GFR/1.73 sq M.predicted MDRD (S/P/Bld) [Vol rate/Area] mL/min/{1.73_m2} Normal [facility] Comment on above: Performed By: #### C EPHEID NEG, COVID19 FLU RSV, ADDONUAPLUS, UHCG #### [address] Glucose [Mass/Vol] 92 mg/dL Normal 70-100 [facility] Comment on above: Result Comment: [place] Glucose Reference Range is dependent on time and content of last meal. Glucose of more than 200 mg/dL in a nonstressed, ambulatory subject supports the diagnosis of Diabetes Mellitus. ADA recommended reference range Performed By: #### C EPHEID NEG, COVID19 FLU RSV, ADDONUAPLUS, UHCG #### [address] Potassium [Moles/Vol] 4.2 mmol/L Normal 3.5-5.1 [facility] Comment on above: Performed By: #### C EPHEID NEG, COVID19 FLU RSV, ADDONUAPLUS, UHCG #### [address] Sodium [Moles/Vol] 135 mmol/L Low 136-145 [facility] Comment on above: Performed By: #### C EPHEID NEG, COVID19 FLU RSV, ADDONUAPLUS, UHCG #### [address] Urea nitrogen [Mass/Vol] 7 mg/dL Normal 7-25 [facility] Comment on above: Performed By: #### C EPHEID NEG, COVID19 FLU RSV, ADDONUAPLUS, UHCG #### [place] [address] [place] Basophils Auto (Bld) [#/Vol] Ordered By: Sid Bo on 05-05-2024 Basophils (Bld) [#/Vol] Automated basophil count 0.0-0.2 [facility] Basophils/100 WBC Auto (Bld) Ordered By: Sid Bo on 05-05-2024 Basophils/100 WBC (Bld) Automated basophil % . [facility] Calcium [Mass/volume] in Ser um or PlasmaOrdered By: Sid Bo on 05-05-2024 Calcium [Mass/Vol] Calcium [Mass/volume ] in Serum or Plasma 8.6-10.3 [facility] Carbon dioxide, total [Moles /volume] in Serum or PlasmaOrdered By: Sid Bo on 05-05-2024 CO2 [Moles/Vol] Carbon dioxide, tota l [Moles/volume] in Serum or Plasma 21.0-31.0 [facility] Chloride [Moles/volume] in S luciana or PlasmaOrdered By: Sid Bo on 05-05-2024 Chloride [Moles/Vol] Chloride [Moles/vol ume] in Serum or Plasma 98-107 [facility] Complete Blood Count Auto Di ffon 05-05-2024 Basophils (Bld) [#/Vol] 0.1 10*3/uL Normal 0.0-0.2 [facility] Comment on above: Result Comment: PERF ORMED BY: [place] [address] PATHOLOGIST GROCERY CLERK SYLVIA ANDERSON M.D. Performed By: #### C EPHEID NEG, COVID19 FLU RSV, ADDONUAPLUS, UHCG #### [address] Basophils/100 WBC (Bld) 0.6 % Normal . [facility] Comment on above: Performed By: #### C EPHEID NEG, COVID19 FLU RSV, ADDONUAPLUS, UHCG #### [place] [address] [place] Eosinophils (Bld) [#/Vol] 0.1 10*3/uL Normal 0.0-0.45 [facility] Comment on above: Performed By: #### C EPHEID NEG, COVID19 FLU RSV, ADDONUAPLUS, UHCG #### [address] Eosinophils/100 WBC (Bld) 1.1 % Normal . [facility] Comment on above: Performed By: #### C EPHEID NEG, COVID19 FLU RSV, ADDONUAPLUS, UHCG #### [address] Erythrocyte distribution width (RBC) [Ratio] 12.8 % Normal 11.9-15.3 [facility] Comment on above: Performed By: #### C EPHEID NEG, COVID19 FLU RSV, ADDONUAPLUS, UHCG #### [address] Hematocrit (Bld) [Volume fraction] 33.2 % Low 34.0-46.4 [facility] Comment on above: Performed By: #### C EPHEID NEG, COVID19 FLU RSV, ADDONUAPLUS, UHCG #### [address] Hemoglobin (Bld) [Mass/Vol] 11.7 g/dL Low 11.8-15.4 [facility] Comment on above: Performed By: #### C EPHEID NEG, COVID19 FLU RSV, ADDONUAPLUS, C #### [address] Lymphocytes (Bld) [#/Vol] 1.7 10*3/uL Normal 1.00-4.8 [facility] Comment on above: Performed By: #### C EPHEID NEG, COVID19 FLU RSV, ADDONUAPLUS, UHCG #### [address] Lymphocytes/100 WBC (Bld) 16.6 % Normal . [facility] Comment on above: Performed By: #### C EPHEID NEG, COVID19 FLU RSV, ADDONUAPLUS, UHCG #### [address] MCH (RBC) [Entitic mass] 33.3 pg Normal 24.7-34.3 [facility] Comment on above: Performed By: #### C EPHEID NEG, COVID19 FLU RSV, ADDONUAPLUS, UHCG #### [address] MCV (RBC) [Entitic vol] 94.4 fL Normal 80-100 [facility] Comment on above: Performed By: #### C EPHEID NEG, COVID19 FLU RSV, ADDONUAPLUS, UHCG #### [address] Mean Corpuscular HGB Conc 35.2 g/dL High 32.0-35.0 [facility] Comment on above: Performed By: #### C EPHEID NEG, COVID19 FLU RSV, ADDONUAPLUS, UHCG #### [address] Monocytes (Bld) [#/Vol] 0.3 10*3/uL Normal 0.0-0.8 [facility] Comment on above: Performed By: #### C EPHEID NEG, COVID19 FLU RSV, ADDONUAPLUS, UHCG #### [address] Monocytes/100 WBC (Bld) 17.38 % Normal 0.00-20.00 [facility] Comment on above: Performed By: #### C EPHEID NEG, COVID19 FLU RSV, ADDONUAPLUS, UHCG #### [place] [address] [place] Monocytes/100 WBC (Bld) 3.3 % Normal . [facility] Comment on above: Performed By: #### C EPHEID NEG, COVID19 FLU RSV, ADDONUAPLUS, UHCG #### [place] [address] [place] Neutrophils (Bld) [#/Vol] 8.0 10*3/uL High 1.8-7.7 [facility] Comment on above: Performed By: #### C EPHEID NEG, COVID19 FLU RSV, ADDONUAPLUS, UHCG #### [address] Neutrophils/100 WBC (Bld) 78.4 % Normal . [facility] Comment on above: Performed By: #### C EPHEID NEG, COVID19 FLU RSV, ADDONUAPLUS, UHCG #### [address] NRBC% 0.0 /100{WBC} Normal 0-0.5 [facility] Comment on above: Performed By: #### C EPHEID NEG, COVID19 FLU RSV, ADDONUAPLUS, UHCG #### [address] Platelet mean volume (Bld) [Entitic vol] 8.6 fL Normal 6.3-10.7 [facility] Comment on above: Performed By: #### C EPHEID NEG, COVID19 FLU RSV, ADDONUAPLUS, UHCG #### [address] Platelets (Bld) [#/Vol] 265 10*3/uL Normal 150-450 [facility] Comment on above: Performed By: #### C EPHEID NEG, COVID19 FLU RSV, ADDONUAPLUS, UHCG #### [address] RBC (Bld) [#/Vol] 3.52 10*6/uL Low 3.60-5.00 [facility] Comment on above: Performed By: #### C EPHEID NEG, COVID19 FLU RSV, ADDONUAPLUS, UHCG #### [address] WBC (Bld) [#/Vol] 10.2 10*3/uL Normal 3.8-11.6 [facility] Comment on above: Performed By: #### C EPHEID NEG, COVID19 FLU RSV, ADDONUAPLUS, UHCG #### [address] Creatine Kinaseon 05-05-2024 CK [Catalytic activity/Vol] 13 U/L Low 30-223 [facility] Comment on above: Performed By: #### C EPHEID NEG, COVID19 FLU RSV, ADDONUAPLUS, UHCG #### [address] [place] [address] [facility] Creatine kinase [Enzymatic a ctivity/volume] in Serum or PlasmaOrdered By: Sid Bo on 05-05-2024 CK [Catalytic activity/Vol] Creatine kinase [Enzymatic activity/volume] in Serum or Plasma Low 30-223 [facility] Creatinine [Mass/volume] in Serum or PlasmaOrdered By: Sid Bo on 05-05-2024 Creatinine [Mass/Vol] Creatinine [Mass/v olume] in Serum or Plasma 0.60-1.20 [facility] ECG 12 lead ECGon 05-05-2024 ECG 12 lead ECG [facility] [address] [place] [address] Electrocardiograph Report Signed Patient: Thuy Malik MR#: [id number] 35 : 2005 Acct:[id number] Age/Sex: 18 / F ADM Date: 05/05/24 Loc: ER Room: Type: [facility] ER Attending Dr: Ordering Provider: Sid Bo DO Date of Service: 05/05/24 ECG/ECG 12 lead ECG: Dizziness Copies to: Test Reason : Blood Pressure : 113/72 mmHG Vent. Rate : 81 BPM Atrial Rate : 81 BPM P-R Int : 106 ms QRS Dur : 84 ms QT Int : 354 ms P-R-T Axes : 17 38 4 degrees QTcB Int : 411 ms Sinus rhythm with short FL Otherwise normal ECG When compared with ECG of 03-Dec-2023 13:49, No significant change was found Confirmed by SID BO DO ([id number]) on 05/05/2024 7:39:04 PM Referred By: Electronically Signed By: SID BO DO Transcribed By: MUS Signed By Sid Bo DO 05/05 193 Normal [facility] Eosinophils Auto (Bld) [#/Vo l]Ordered By: Sid Bo on 05-05-2024 Eosinophils (Bld) [#/Vol] Automated eosinophil count 0.0-0.45 [facility] Eosinophils/100 WBC Auto (Bl d)Ordered By: Sid Bo on 05-05-2024 Eosinophils/100 WBC (Bld) Automated eosinophil % . [facility] Erythrocyte distribution wid th Auto (RBC) [Ratio]Ordered By: Sid Bo on 05-05-2024 Erythrocyte distribution width (RBC) [Ratio] Erythrocyte distribution width [Ratio] by Automated count 11.9-15.3 [facility] Glucose [Mass/volume] in Ser um or PlasmaOrdered By: Sid Bo on 05-05-2024 Glucose [Mass/Vol] Glucose [Mass/volume ] in Serum or Plasma 70-100 [facility] Comment on above: ADA recommended refe rence rangeRandom Glucose Reference Range is dependent on time and content of last meal. Glucose of more than 200 mg/dL in a nonstressed, ambulatory subject supports the diagnosis of Diabetes Mellitus. Hematocrit Auto (Bld) [Volum e fraction]Ordered By: Sid Bo on 05-05-2024 Hematocrit (Bld) [Volume fraction] Hematocrit [Volume Fraction] of Blood by Automated count Low 34.0-46.4 [facility] Hemoglobin [Mass/volume] in BloodOrdered By: Sid Bo on 05-05-2024 Hemoglobin (Bld) [Mass/Vol] Hemoglobin [Mass/volume] in Blood Low 11.8-15.4 [facility] INR in Platelet poor plasma by Coagulation assayOrdered By: Sid Bo on 05-05-2024 INR Coag (PPP) [Relative time] INR in Platelet poor plasma by Coagulation assay [facility] Comment on above: INR Therapeutic Rang [...] erythrocytes in Blood by Automated counOrdered By: Sid Bo on 05-05-2024 WBC corrected for nucl RBC Auto (Bld) [#/Vol] Leukocytes [#/volume] corrected for nucleated erythrocytes in Blood by Automated coun 3.8-11.6 [facility] Lymphocytes Auto (Bld) [#/Vo l]Ordered By: Sid Bo on 05-05-2024 Lymphocytes (Bld) [#/Vol] Lymphocytes [#/volume] in Blood by Automated count 1.00-4.8 [facility] Lymphocytes/100 WBC Auto (Bl d)Ordered By: Sid Bo on 05-05-2024 Lymphocytes/100 WBC (Bld) Lymphocytes/100 leukocytes in Blood by Automated count . [facility] MCH Auto (RBC) [Entitic mass ]Ordered By: Sid Bo on 05-05-2024 MCH (RBC) [Entitic mass] MCH [Entitic mass] by Automated count 24.7-34.3 [facility] MCHC Auto (RBC) [Mass/Vol]Or dered By: Sid Bo on 05-05-2024 MCHC (RBC) [Mass/Vol] MCHC [Mass/volume] by Automated count High 32.0-35.0 [facility] MCV Auto (RBC) [Entitic vol] Ordered By: Sid Bo on 05-05-2024 MCV (RBC) [Entitic vol] MCV [Entitic volume] by Automated count 80-100 [facility] Magnesiumon 05-05-2024 Magnesium [Mass/Vol] 1.7 mg/dL Low 1.9-2.7 [facility] Comment on above: Result Comment: PERF ORMED BY: [place] [address] PATHOLOGIST GROCERY CLERK SYLVIA ANDERSON M.D. Performed By: #### C EPHEID NEG, COVID19 FLU RSV, ADDONUAPLUS, UHCG #### [address] Magnesium [Mass/volume] in S luciana or PlasmaOrdered By: Sid Bo on 05-05-2024 Magnesium [Mass/Vol] Magnesium [Mass/vol ume] in Serum or Plasma Low 1.9-2.7 [facility] Monocyte distribution width [Entitic volume] in Blood by AutomatedOrdered By: Sid Bo on 05-05-2024 Monocyte distribution width Auto (Bld) [Entitic vol] Monocyte distribution width [Entitic volume] in Blood by Automated 0.00-20.00 [facility] Monocytes Auto (Bld) [#/Vol] Ordered By: Sid Bo on 05-05-2024 Monocytes (Bld) [#/Vol] Automated blood monocyte count 0.0-0.8 [facility] Monocytes/100 WBC Auto (Bld) Ordered By: Sid Bo on 05-05-2024 Monocytes/100 WBC (Bld) Automated monocyte % . [facility] Natriuretic peptide B [Mass/ Vol]Ordered By: Sid Bo on 05-05-2024 Natriuretic peptide B (Bld) [Mass/Vol] BNP ser/plas 5-100 [facility] Neutrophils Auto (Bld) [#/Vo l]Ordered By: Sid Bo on 05-05-2024 Neutrophils (Bld) [#/Vol] Neutrophils [#/volume] in Blood by Automated count High 1.8-7.7 [facility] Neutrophils/100 WBC Auto (Bl d)Ordered By: Sid Bo on 05-05-2024 Neutrophils/100 WBC (Bld) Automated neutrophil % . [facility] No Panel InformationOrdered By: iSd Bo on 05-05-2024 Estimated GFR (CKD-EPI) > 60.0 mL/Min [facility] Creatinine Clearance (Chem 143.84 [facility] Nucleated erythrocytes [Pres ence] in Blood by Automated countOrdered By: Sid Bo on 05-05-2024 Nucleated RBC Auto Ql (Bld) Nucleated erythrocytes [Presence] in Blood by Automated count 0-0.5 [facility] Platelet mean volume Auto (B ld) [Entitic vol]Ordered By: Sid Bo on 05-05-2024 Platelet mean volume (Bld) [Entitic vol] Platelet mean volume [Entitic volume] in Blood by Automated count 6.3-10.7 [facility] Platelets Auto (Bld) [#/Vol] Ordered By: Sid Bo on 05-05-2024 Platelets (Bld) [#/Vol] Platelets [#/volume] in Blood by Automated count 150-450 [facility] Potassium [Moles/volume] in Serum or PlasmaOrdered By: Sid Bo on 05-05-2024 Potassium [Moles/Vol] Potassium [Moles/v olume] in Serum or Plasma 3.5-5.1 [facility] Prothrombin Time INRon 01-20 -2025 INR Coag (PPP) [Relative time] 1.1 {INR} Normal [facility] Comment on above: Result Comment: [...] with mechanical heart valves: 3 - 4.5 PERFORMED BY: [place] [address] PATHOLOGIST GROCERY CLERK SYLVIA ANDERSON M.D. Performed By: #### C EPHEID NEG, COVID19 FLU RSV, ADDONUAPLUS, UHCG #### [address] PT Coag (PPP) [Time] 12.6 s Normal 9.0-12.9 [facility] Comment on above: Result Comment: A matocrit value greater than 55% may lead to inaccurate results in coagulation testing. Patients having hematocrit values >55% require a special collection tube for coagulation studies. Please contact the laboratory at [phone] for redraw instructions. Performed By: #### C EPHEID NEG, COVID19 FLU RSV, ADDONUAPLUS, UHCG #### [address] Prothrombin time (PT)Ordered By: Sid Bo on 05-05-2024 PT Coag (PPP) [Time] Prothrombin time (PT) 9.0- 12.9 [facility] Comment on above: A hematocrit value g reater than 55% may lead to inaccurate results in coagulation testing. Patients having hematocrit values >55% require a special collection tube for coagulation studies. Please contact the laboratory at [phone] for redraw instructions. RBC Auto (Bld) [#/Vol]Ordere d By: Sid Bo on 05-05-2024 RBC (Bld) [#/Vol] Erythrocytes [#/volu me] in Blood by Automated count Low 3.60-5.00 [facility] Serum or plasma anion gap de terminationOrdered By: Sid Bo on 05-05-2024 Anion gap [Moles/Vol] Serum or plasma an ion gap determination 6.0-15.0 [facility] Sodium [Moles/volume] in Ser um or PlasmaOrdered By: Sid Bo on 05-05-2024 Sodium [Moles/Vol] Sodium [Moles/volume ] in Serum or Plasma Low 136-145 [facility] Troponin I High Sensitivityo n 05-05-2024 Troponin I High Sensitivity <3 Normal 0-15 [facility] Comment on above: Result Comment: The Troponin units of report have been changed to meet the Chest Pain Accreditation requirement, element EC5.M1l2. Troponin units are changed from pg/ml to ng/L. Also, the decimal is removed and results are in whole numbers. PERFORMED BY: [place] [address] PATHOLOGIST GROCERY CLERK SYLVIA ANDERSON M.D. Performed By: #### C EPHEID NEG, COVID19 FLU RSV, ADDONUAPLUS, UHCG #### [facility] [address] Troponin I.cardiac [Mass/vol ume] in Serum or Plasma by Detection limit <= 0.01 ng/Ordered By: Sid Bo on 05-05-2024 Troponin I.cardiac DL <= 0.01 ng/mL [Mass/Vol] Troponin I.cardiac [Mass/volume] in Serum or Plasma by Detection limit <= 0.01 ng/ 0-15 [facility] Comment on above: The Troponin units o f report have been changed to meet the Chest Pain Accreditation requirement, element EC5.M1l2. Troponin units are changed from pg/ml to ng/L. Also, the decimal is removed and results are in whole numbers. Urea nitrogen [Mass/volume] in Serum or PlasmaOrdered By: Sid Bo on 05-05-2024 Urea nitrogen [Mass/Vol] Urea nitrogen [Mass/volume] in Serum or Plasma 7-25 [facility] WBC Auto (Bld) [#/Vol]Ordere d By: Sid Bo on 05-05-2024 WBC (Bld) [#/Vol] Leukocytes [#/volume ] in Blood by Automated count 3.8-11.6 [facility] X-ray reportOrdered By: Antonio Hanson on 05-05-2024 [place] [address] XRay Report Signed Patient: Thuy Malik MR#: [id number] : 2005 Acct:[id number] Age/Sex: 18 / F ADM Date: 5 Loc: ER Room: Type: [facility] ER Attending Dr: Copies to: Sid Bo DO~ Ordering Provider: Sid Bo DO Date of Service: 05/05/24 XR/XR chest 1V portable: Dizziness SINGLE VIEW CHEST CLINICAL HISTORY: Dizziness with syncopal episodes. COMPARISON: None FINDINGS: Heart normal size. Lungs are clear. No free air. XR/XR chest 1V portable IMPRESSION: NO ACUTE FINDINGS Impression dictated by: Rony Hanson Jr., D.OElia05/05/2024 12:16 PM Dictation Location: [place] [address] Transcribed By: [facility] 05/05/24 1216 Dictated By: Rony Hanson Jr, DO 05/05/24 1216 Signed By: 05/05/24 1216 [facility] XR chest 1V portableon 05-05 XR chest 1V portable [place] [id number] XRay Report Signed Patient: Thuy Malik MR#: [id number] 35 : 2005 Acct:[id number] Age/Sex: 18 / F ADM Date: 05/05/24 Loc: ER Room: Type: [facility] ER Attending Dr: Copies to: Sid Bo DO Ordering Provider: Sid Bo DO Date of Service: 05/05/24 XR/XR chest 1V portable: Dizziness SINGLE VIEW CHEST CLINICAL HISTORY: Dizziness with syncopal episodes. COMPARISON: None FINDINGS: Heart normal size. Lungs are clear. No free air. XR/XR chest 1V portable IMPRESSION: NO ACUTE FINDINGS Impression dictated by: Rony Hanson Jr., DEliaOElia05/05/2024 12:16 PM Dictation Location: [place] [address] Transcribed By: [facility] 05/05/241215 Dictated By: Rony Hanson Jr, DO 05/05/241215 Signed By: 05/05/241215 Normal [facility] Alanine aminotransferase [En zymatic activity/volume] in Serum or PlasmaOrdered By: Rodolfo Anthony on 04-27-2024 ALT [Catalytic activity/Vol] Alanine aminotransferase [Enzymatic activity/volume] in Serum or Plasma Low 7-52 [facility] Albumin [Mass/volume] in Ser um or Plasma by Bromocresol green (BCG) dye binding methoOrdered By: Rodolfo Anthony on 04-27-2024 Albumin BCG dye [Mass/Vol] Albumin [Mass/volume] in Serum or Plasma by Bromocresol green (BCG) dye binding metho 3.5-5.7 [facility] Alkaline phosphatase [Enzyma tic activity/volume] in Serum or PlasmaOrdered By: Rodolfo Anthony on 04-27-2024 ALP [Catalytic activity/Vol] Alkaline phosphatase [Enzymatic activity/volume] in Serum or Plasma 34-104 [facility] Appearance of UrineOrdered B y: Rodolfo Anthony on 04-27-2024 Appearance (U) Urine appearance Clear [facility] Aspartate aminotransferase [ Enzymatic activity/volume] in Serum or PlasmaOrdered By: Rodolfo Anthony on 04-27-2024 AST [Catalytic activity/Vol] Aspartate aminotransferase [Enzymatic activity/volume] in Serum or Plasma Low 13-39 [facility] Bacteria [Presence] in Urine by AutomatedOrdered By: Rodolfo Anthony on 04-27-2024 Bacteria Auto Ql (U) Bacteria [Presence] in Urine by Automated None Seen [facility] Basophils Auto (Bld) [#/Vol] Ordered By: Rodolfo Anthony on 04-27-2024 Basophils (Bld) [#/Vol] Automated basophil count 0.0-0.2 [facility] Basophils/100 WBC Auto (Bld) Ordered By: Rodolfo Anthony on 04-27-2024 Basophils/100 WBC (Bld) Automated basophil % . [facility] Bilirubin Test strip Ql (U)O rdered By: Rodolfo Anthony on 04-27-2024 Bilirubin Ql (U) Bilirubin.total [Pre sence] in Urine by Test strip Negative [facility] Bilirubin.total [Mass/volume ] in Serum or PlasmaOrdered By: Rodolfo Anthony on 04-27-2024 Bilirubin [Mass/Vol] Bilirubin.total [Mass/volume] in Serum or Plasma 0.3-1.0 [facility] COVID Cepheid NegativeOrdere d By: Rodolfo Anthony on 04-27-2024 SARS-CoV-2 (COVID-19) Ab IA Ql COVID Cepheid Negative [facility] Comment on above: This is a duplicate Cepheid Xpert Xpress CoV-2/Flu/RSV Plus RNA by RT-PCR result to be used for statistical tracking purpose only. COVID-19 / Flu A/B / RSV PCR on 04-27-2024 SARS-CoV-2 (COVID-19) RNA ANUP+probe Ql (Unsp spec) COVID-19 Cepheid Result Negative for SARS-CoV-2 RNA by RT-PCR Flu A Cepheid Result Negative for Flu A RNA by RT-PCR Flu B Cepheid Result Negative for Flu B RNA by RT-PCR RSV Cepheid Result Negative for RSV RNA by RT-PCR COVID19 Blank Space -- Reference: Negative COVID19 Blank Space -- Cepheid Disclaimer The Cepheid Xpert Xpress CoV-2/Flu/RSV Plus has Cepheid Disclaimer not been FDA cleared or approved; this test has Cepheid Disclaimer been authorized by FDA under an EUA for use by Cepheid Disclaimer authorized laboratories; this test has been Cepheid Disclaimer authorized only for the simultaneous qualitative Cepheid Disclaimer detection and differentiation of nucleic acids from Cepheid Disclaimer SARS-CoV-2, influenza A, influenza B, and Cepheid Disclaimer respiratory syncytial virus (RSV), and not for any Cepheid Disclaimer other viruses or pathogens; and this test is only Cepheid Disclaimer authorized for the duration of the declaration that Cepheid Disclaimer circumstances exist justifying the authorization of Cepheid Disclaimer emergency use of in vitro diagnostic tests for Cepheid Disclaimer detection and/or diagnosis of COVID-19 under Cepheid Disclaimer Section 564(b)(1) of the Act, 21 U.S.C. 360bbb- Cepheid Disclaimer 3(b)(1), unless the authorization is terminated or Cepheid Disclaimer revoked sooner. PERFORMED BY: [place] [address] PATHOLOGIST GROCERY CLERK SYLVIA ANDERSON M.D. Normal [facility] Comment on above: Performed By: #### C EPHEID NEG, COVID19 FLU RSV, ADDONUAPLUS, UHCG #### [address] Calcium [Mass/volume] in Ser um or PlasmaOrdered By: Rodolfo Anthony on 04-27-2024 Calcium [Mass/Vol] Calcium [Mass/volume ] in Serum or Plasma 8.6-10.3 [facility] Calcium oxalate crystals [Pr esence] in Urine by Computer assisted methodOrdered By: Rodolfo Anthony on 04-27-2024 Calcium oxalate crystals Computer assisted Ql (U) Calcium oxalate crystals [Presence] in Urine by Computer assisted method [facility] Carbon dioxide, total [Moles /volume] in Serum or PlasmaOrdered By: Rodolfo Anthony on 04-27-2024 CO2 [Moles/Vol] Carbon dioxide, tota l [Moles/volume] in Serum or Plasma 21.0-31.0 [facility] Cepheid COVID PCR Negativeon 04-27-2024 SARS-CoV-2 (COVID-19) RNA ANUP+probe Ql (Unsp spec) Negative Normal Negative [facility] Comment on above: Result Comment: This is a duplicate Cepheid Xpert Xpress CoV-2/Flu/RSV Plus RNA by RT-PCR result to be used for statistical tracking purpose only. PERFORMED BY: [place] [address] PATHOLOGIST GROCERY CLERK SYLVIA ANDERSON M.D. Performed By: #### C EPHEID NEG, COVID19 FLU RSV, ADDONUAPLUS, UHCG #### [address] Chloride [Moles/volume] in S luciana or PlasmaOrdered By: Rodolfo Anthony on 04-27-2024 Chloride [Moles/Vol] Chloride [Moles/vol ume] in Serum or Plasma 98-107 [facility] Color Auto (U)Ordered By: Galina Anthony on 04-27-2024 Color (U) Color of Urine by Auto Yellow [facility] Complete Blood Count Auto Di ffon 04-27-2024 Basophils (Bld) [#/Vol] 0.1 10*3/uL Normal 0.0-0.2 [facility] Comment on above: Result Comment: PERF ORMED BY: [place] [address] PATHOLOGIST GROCERY CLERK SYLVIA ANDERSON M.D. Performed By: #### C BC, CMP #### [address] Basophils/100 WBC (Bld) 0.6 % Normal . [facility] Comment on above: Performed By: #### C BC, CMP #### [facility] [address] [place] [address] [place] Eosinophils (Bld) [#/Vol] 0.1 10*3/uL Normal 0.0-0.45 [facility] Comment on above: Performed By: #### C BC, CMP #### [facility] [address] [place] [address] [place] Eosinophils/100 WBC (Bld) 0.9 % Normal . [facility] Comment on above: Performed By: #### C BC, CMP #### [address] Erythrocyte distribution width (RBC) [Ratio] 12.8 % Normal 11.9-15.3 [facility] Comment on above: Performed By: #### C BC, CMP #### [address] Hematocrit (Bld) [Volume fraction] 32.0 % Low 34.0-46.4 [facility] Comment on above: Performed By: #### C BC, CMP #### [address] Hemoglobin (Bld) [Mass/Vol] 11.4 g/dL Low 11.8-15.4 [facility] Comment on above: Performed By: #### C BC, CMP #### [address] Lymphocytes (Bld) [#/Vol] 1.7 10*3/uL Normal 1.00-4.8 [facility] Comment on above: Performed By: #### C BC, CMP #### [place] [address] [place] Lymphocytes/100 WBC (Bld) 19.5 % Normal . [facility] Comment on above: Performed By: #### C BC, CMP #### [address] MCH (RBC) [Entitic mass] 33.8 pg Normal 24.7-34.3 [facility] Comment on above: Performed By: #### C BC, CMP #### [address] MCV (RBC) [Entitic vol] 94.4 fL Normal 80-100 [facility] Comment on above: Performed By: #### C BC, CMP #### [address] Mean Corpuscular HGB Conc 35.7 g/dL High 32.0-35.0 [facility] Comment on above: Performed By: #### C BC, CMP #### [address] Monocytes (Bld) [#/Vol] 0.8 10*3/uL Normal 0.0-0.8 [facility] Comment on above: Performed By: #### C BC, CMP #### [facility] [address] [place] [id number] [place] Monocytes/100 WBC (Bld) 19.80 % Normal 0.00-20.00 [facility] Comment on above: Performed By: #### C BC, CMP #### [place] [id number] [place] Monocytes/100 WBC (Bld) 9.0 % Normal . [facility] Comment on above: Performed By: #### C BC, CMP #### [place] [address] [place] Neutrophils (Bld) [#/Vol] 6.2 10*3/uL Normal 1.8-7.7 [facility] Comment on above: Performed By: #### C BC, CMP #### [address] Neutrophils/100 WBC (Bld) 70.0 % Normal . [facility] Comment on above: Performed By: #### C BC, CMP #### [address] NRBC% 0.1 /100{WBC} Normal 0-0.5 [facility] Comment on above: Performed By: #### C BC, CMP #### [address] Platelet mean volume (Bld) [Entitic vol] 8.8 fL Normal 6.3-10.7 [facility] Comment on above: Performed By: #### C BC, CMP #### [place] [address] [place] Platelets (Bld) [#/Vol] 227 10*3/uL Normal 150-450 [facility] Comment on above: Performed By: #### C BC, CMP #### [place] [address] [place] RBC (Bld) [#/Vol] 3.39 10*6/uL Low 3.60-5.00 [facility] Comment on above: Performed By: #### C BC, CMP #### [address] WBC (Bld) [#/Vol] 8.9 10*3/uL Normal 3.8-11.6 [facility] Comment on above: Performed By: #### C BC, CMP #### [address] Comprehensive Metabolic Pane kay 04-27-2024 Albumin [Mass/Vol] 3.5 g/dL Normal 3.5-5.7 [facility] [facility] Comment on above: Performed By: #### C BC, CMP #### [address] Albumin/Globulin [Mass ratio] 1.4 {ratio} Normal [facility] Comment on above: Performed By: #### C BC, CMP #### [address] ALP [Catalytic activity/Vol] 41 U/L Normal 34-104 [facility] Comment on above: Performed By: #### C BC, CMP #### [address] ALT [Catalytic activity/Vol] 5 U/L Low 7-52 [facility] Comment on above: Performed By: #### C BC, CMP #### [address] Anion gap [Moles/Vol] 10.2 mmol/L Normal 6.0-15.0 [facility] Comment on above: Performed By: #### C BC, CMP #### [address] AST [Catalytic activity/Vol] 9 U/L Low 13-39 [facility] Comment on above: Performed By: #### C BC, CMP #### [address] Bilirubin [Mass/Vol] 0.4 mg/dL Normal 0.3-1.0 [facility] Comment on above: Performed By: #### C BC, CMP #### [place] [id number] [place] Calcium [Mass/Vol] 8.8 mg/dL Normal 8.6-10.3 [facility] Comment on above: Performed By: #### C BC, CMP #### [address] Chloride [Moles/Vol] 106 mmol/L Normal 98-107 [facility] Comment on above: Performed By: #### C BC, CMP #### [address] CO2 [Moles/Vol] 22.7 mmol/L Normal 21.0-31.0 [facility] Comment on above: Performed By: #### C BC, CMP #### [address] Creatinine [Mass/Vol] 0.55 mg/dL Low 0.60-1.20 [facility] Comment on above: Performed By: #### C BC, CMP #### [address] Creatinine Clr Calc Pharmacy 166.75 Normal [facility] Comment on above: Result Comment: PERF ORMED BY: [place] [address] PATHOLOGIST GROCERY CLERK SYLVIA ANDERSON M.D. Performed By: #### C BC, CMP #### [address] GFR/1.73 sq M.predicted MDRD (S/P/Bld) [Vol rate/Area] mL/min/{1.73_m2} Normal [facility] Comment on above: Performed By: #### C BC, CMP #### [address] Globulin (S) [Mass/Vol] 2.5 g/dL Normal [facility] Comment on above: Performed By: #### C BC, CMP #### [address] Glucose [Mass/Vol] 79 mg/dL Normal 70-100 [facility] Comment on above: Result Comment: [facility] Glucose Reference Range is dependent on time and content of last meal. Glucose of more than 200 mg/dL in a nonstressed, ambulatory subject supports the diagnosis of Diabetes Mellitus. ADA recommended reference range Performed By: #### C BC, CMP #### [facility] [address] Potassium [Moles/Vol] 3.9 mmol/L Normal 3.5-5.1 [facility] Comment on above: Performed By: #### C BC, CMP #### [address] Protein [Mass/Vol] 6.0 g/dL Low 6.4-8.9 [facility] Comment on above: Performed By: #### C BC, CMP #### [address] Sodium [Moles/Vol] 135 mmol/L Low 136-145 [facility] Comment on above: Performed By: #### C BC, CMP #### [address] Urea nitrogen [Mass/Vol] 5 mg/dL Low 7-25 [facility] Comment on above: Performed By: #### C BC, CMP #### [address] Creatinine [Mass/volume] in Serum or PlasmaOrdered By: Rodolfo Anthony on 04-27-2024 Creatinine [Mass/Vol] Creatinine [Mass/v olume] in Serum or Plasma Low 0.60-1.20 [facility] Dipstick and Microscopicon 0 04-27-2024 Appearance (U) Clear Normal Clear [facility] Comment on above: Order Comment: Name Collection Type:: Clean-Voided Midstream Performed By: #### C EPHEID NEG, COVID19 FLU RSV, ADDONUAPLUS, UHCG #### [place] [address] [place] Bacteria,Urine None Seen Normal None Seen [facility] Comment on above: Order Comment: Name Collection Type:: Clean-Voided Midstream Performed By: #### C EPHEID NEG, COVID19 FLU RSV, ADDONUAPLUS, UHCG #### [place] [address] [place] Bilirubin,Urine Negative Normal Negative [facility] Comment on above: Order Comment: Name Collection Type:: Clean-Voided Midstream Performed By: #### C EPHEID NEG, COVID19 FLU RSV, ADDONUAPLUS, UHCG #### [address] Calcium Oxalate Crystals,Urine 1+ Normal [facility] Comment on above: Order Comment: Name Collection Type:: Clean-Voided Midstream Performed By: #### C EPHEID NEG, COVID19 FLU RSV, ADDONUAPLUS, UHCG #### [address] Color (U) Yellow Normal Yellow [facility] Comment on above: Order Comment: Name Collection Type:: Clean-Voided Midstream Performed By: #### C EPHEID NEG, COVID19 FLU RSV, ADDONUAPLUS, UHCG #### [address] Glucose Ql (U) Normal Normal Normal [facility] Comment on above: Order Comment: Name Collection Type:: Clean-Voided Midstream Performed By: #### C EPHEID NEG, COVID19 FLU RSV, ADDONUAPLUS, UHCG #### [place] [address] [place] Hyaline Casts,Urine 0 [LPF] Normal 0-8 [facility] Comment on above: Order Comment: Name Collection Type:: Clean-Voided Midstream Performed By: #### C EPHEID NEG, COVID19 FLU RSV, ADDONUAPLUS, UHCG #### [place] [address] [place] Ketones Ql (U) Negative Normal Negative [facility] Comment on above: Order Comment: Name Collection Type:: Clean-Voided Midstream Performed By: #### C EPHEID NEG, COVID19 FLU RSV, ADDONUAPLUS, UHCG #### [address] Leukocyte esterase Test strip Ql (U) Negative Normal Negative [facility] Comment on above: Order Comment: Name Collection Type:: Clean-Voided Midstream Performed By: #### C EPHEID NEG, COVID19 FLU RSV, ADDONUAPLUS, UHCG #### [address] Mucus,Urine 2+ Critically abnormal [facility] Comment on above: Order Comment: Name Collection Type:: Clean-Voided Midstream Performed By: #### C EPHEID NEG, COVID19 FLU RSV, ADDONUAPLUS, UHCG #### [address] Nitrite,Urine Negative Normal Negative [facility] Comment on above: Order Comment: Name Collection Type:: Clean-Voided Midstream Performed By: #### C EPHEID NEG, COVID19 FLU RSV, ADDONUAPLUS, UHCG #### [address] Occult Blood,Urine Negative Normal Negative [facility] Comment on above: Order Comment: Name Collection Type:: Clean-Voided Midstream Performed By: #### C EPHEID NEG, COVID19 FLU RSV, ADDONUAPLUS, UHCG #### [address] pH (U) 5.5 [pH] Normal 5.0-9.0 [facility] Comment on above: Order Comment: Name Collection Type:: Clean-Voided Midstream Performed By: #### C EPHEID NEG, COVID19 FLU RSV, ADDONUAPLUS, UHCG #### [address] Protein,Urine Trace High Negative [facility] Comment on above: Order Comment: Name Collection Type:: Clean-Voided Midstream Performed By: #### C EPHEID NEG, COVID19 FLU RSV, ADDONUAPLUS, UHCG #### [address] RBC,Urine 1 [HPF] Normal 0-4 [facility] Comment on above: Order Comment: Name Collection Type:: Clean-Voided Midstream Performed By: #### C EPHEID NEG, COVID19 FLU RSV, ADDONUAPLUS, UHCG #### [address] Specificy [place],Urine 1.025 Normal 1.001-1.03 0 [facility] Comment on above: Order Comment: Name Collection Type:: Clean-Voided Midstream Performed By: #### C EPHEID NEG, COVID19 FLU RSV, ADDONUAPLUS, UHCG #### [address] Squamous Epithelial Cell,Urine 1 [HPF] Normal 0-2 [facility] Comment on above: Order Comment: Name Collection Type:: Clean-Voided Midstream Performed By: #### C EPHEID NEG, COVID19 FLU RSV, ADDONUAPLUS, UHCG #### [address] Urobilinogen,Urine 2 mg/dL High Normal [facility] Comment on above: Order Comment: Name Collection Type:: Clean-Voided Midstream Performed By: #### C EPHEID NEG, COVID19 FLU RSV, ADDONUAPLUS, UHCG #### [address] WBC,Urine 1 [HPF] Normal 0-4 [facility] Comment on above: Order Comment: Name Collection Type:: Clean-Voided Midstream Performed By: #### C EPHEID NEG, COVID19 FLU RSV, ADDONUAPLUS, UHCG #### [facility] [address] [place] [address] Eosinophils Auto (Bld) [#/Vo l]Ordered By: Rodolfo Anthony on 04-27-2024 Eosinophils (Bld) [#/Vol] Automated eosinophil count 0.0-0.45 [facility] Eosinophils/100 WBC Auto (Bl d)Ordered By: Rodolfo Anthony on 04-27-2024 Eosinophils/100 WBC (Bld) Automated eosinophil % . [facility] Epithelial cells.squamous [# /area] in Urine sediment by Automated countOrdered By: Rodolfo Anthony on 04-27-2024 Epithelial cells.squamous Auto (Urine sed) [#/Area] Epithelial cells.squamous [#/area] in Urine sediment by Automated count 0-2 [facility] Erythrocyte distribution wid th Auto (RBC) [Ratio]Ordered By: Rodolfo Anthony on 04-27-2024 Erythrocyte distribution width (RBC) [Ratio] Erythrocyte distribution width [Ratio] by Automated count 11.9-15.3 [facility]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 [facility] [address] [place] [address] [place] Leukocytes [#/area] in Urine sediment by Microscopy high power fieldOrdered By: Aldair Sandra on 12-03-2023 WBC LM.HPF (Urine sed) [#/Area] 5-9 [HPF] High 0-4 [facility] Leukocytes [#/volume] correc boris for nucleated erythrocytes in Blood by Automated counOrdered By: Aldair Sandra on 12-03-2023 WBC corrected for nucl RBC Auto (Bld) [#/Vol] 13.8 10*3/uL High 3.8-11.6 [facility] Leukocytes [#/volume] in Blo od by Automated countOrdered By: Aldair Sandra on 12-03-2023 WBC (Bld) [#/Vol] 13.8 10*3/uL High 3.8-11.6 [facility] Comment on above: Performed By: #### C BC #### [facility] [address] [place] [address] [place] Lipase [Enzymatic activity/v olume] in Serum or PlasmaOrdered By: Aldair Sandra on 12-03-2023 Lipase [Catalytic activity/Vol] 14.0 U/L Normal 11.0-82.0 [facility] Comment on above: Result Comment: PERF ORMED BY: [address] [place] [address] PATHOLOGIST GROCERY CLERK ROBERT PRADHAN M.D. Performed By: #### C BC #### [address] Lymphocytes [#/volume] in Bl ood by Automated countOrdered By: Aldair Sandra on 12-03-2023 Lymphocytes (Bld) [#/Vol] 2.8 10*3/uL Normal 1.00-4.8 [facility] Comment on above: Performed By: #### C BC #### [address] Lymphocytes/100 leukocytes i n Blood by Automated countOrdered By: Aldair Sandra on 12-03-2023 Lymphocytes/100 WBC (Bld) 20.0 % Normal . [facility] Comment on above: Performed By: #### C BC #### [address] MCH [Entitic mass] by Automa boris countOrdered By: Aldair Sandra on 12-03-2023 MCH (RBC) [Entitic mass] 31.5 pg Normal 24.7-34.3 [facility] Comment on above: Performed By: #### C BC #### [address] MCHC Auto (RBC) [Mass/Vol]Or dered By: Aldair Sandra on 12-03-2023 MCHC (RBC) [Mass/Vol] 34.1 g/dL 32.0-35.0 [facility] MCV [Entitic volume] by Auto mated countOrdered By: Aldair Sandra on 12-03-2023 MCV (RBC) [Entitic vol] 92.5 fL Normal 80-100 [facility] Comment on above: Performed By: #### C BC #### [address] Monocyte distribution width [Entitic volume] in Blood by AutomatedOrdered By: Aldair Sandra on 12-03-2023 Monocyte distribution width Auto (Bld) [Entitic vol] 18.17 % 0.00-20.00 [facility] Mucus LM Ql (Urine sed)Order ed By: Aldair Sandra on 12-03-2023 Mucus Ql (Urine sed) 3+ [LPF] Abnormal [facility] Neutrophils [#/volume] in Bl ood by Automated countOrdered By: Aldair Sandra on 12-03-2023 Neutrophils (Bld) [#/Vol] 10.0 10*3/uL High 1.8-7.7 [facility] Comment on above: Performed By: #### C BC #### [facility] [address] Nitrite Test strip Ql (U)Ord ered By: Aldair Sandra on 12-03-2023 Nitrite Ql (U) Negative Negative [facility] No Panel InformationOrdered By: Aldair Sandra on 12-03-2023 Estimated GFR (CKD-EPI) > 60.0 mL/Min [facility] Creatinine Clearance (Chem 121.80 [facility] Nucleated erythrocytes [Pres ence] in Blood by Automated countOrdered By: Aldair Sandra on 12-03-2023 Nucleated RBC Auto Ql (Bld) 0.1 /100{WBC} 0-0.5 [facility] Opiates [Presence] in Urine by Screen methodOrdered By: Aldair Sandra on 12-03-2023 Opiates Screen Ql (U) Negative Negative [facility] Phencyclidine Screen Ql (U)O rdered By: Aldair Sandra on 12-03-2023 Phencyclidine Ql (U) Negative Negative [facility] Platelet mean volume [Entiti c volume] in Blood by Automated countOrdered By: Aldair Sandra on 12-03-2023 Platelet mean volume (Bld) [Entitic vol] 10.4 fL Normal 6.3-10.7 [facility] Comment on above: Performed By: #### C BC #### [facility] [address] [place] [address] [place] Platelets [#/volume] in Bloo d by Automated countOrdered By: Aldair Sandra on 12-03-2023 Platelets (Bld) [#/Vol] 240 10*3/uL Normal 150-450 [facility] Comment on above: Performed By: #### C BC #### [facility] [address] [place] [address] [place] Potassium [Moles/volume] in Serum or PlasmaOrdered By: Aldair Sandra on 12-03-2023 Potassium [Moles/Vol] 3.5 mmol/L Normal 3.5-5.1 [facility] Comment on above: Performed By: #### C BC #### [facility] [address] Protein [Mass/volume] in Ser um or PlasmaOrdered By: Aldair Sandra on 12-03-2023 Protein [Mass/Vol] 6.7 g/dL Normal 6.4-8.9 [facility] Comment on above: Performed By: #### C BC #### [address] Protein [Mass/volume] in Uri ne by Test stripOrdered By: Aldair Sandra on 12-03-2023 Protein (U) [Mass/Vol] 30 mg/dL High Negative [facility] Comment on above: Order Comment: Comme nt s/s of acute impairment Performed By: #### U A, OBUDS #### [address] Serum globulin measurement b y calculation (mass/volume)Ordered By: Aldair Sandra on 12-03-2023 Globulin (S) [Mass/Vol] 2.4 g/dL [facility] Comment on above: Performed By: #### C BC #### [address] Serum or plasma albumin/glob ulin mass ratioOrdered By: Aldair Sandra on 12-03-2023 Albumin/Globulin [Mass ratio] 1.8 {ratio} [facility] Comment on above: Performed By: #### C BC #### [address] Serum or plasma anion gap de terminationOrdered By: Aldair Sandra on 12-03-2023 Anion gap [Moles/Vol] 15.1 mmol/L High 6.0-15.0 [facility] Comment on above: Performed By: #### C BC #### [place] [id number] [place] Serum or plasma non-glucuron idated bilirubin measurement (mass/volume)Ordered By: Aldair Sandra on 12-03-2023 Bilirubin.indirect [Mass/Vol] 0.7 mg/dL [facility] Sodium [Moles/volume] in Ser um or PlasmaOrdered By: Aldair Sandra on 12-03-2023 Sodium [Moles/Vol] 138 mmol/L Normal 136-145 [facility] Comment on above: Performed By: #### C BC #### [address] Specific gravity Test strip (U) [Rel density]Ordered By: Aldair Sandra on 12-03-2023 Specific gravity (U) [Rel density] 1.034 High 1.001-1.03 0 [facility] Urea nitrogen [Mass/volume] in Serum or PlasmaOrdered By: Aldair Sandra on 12-03-2023 Urea nitrogen [Mass/Vol] 12 mg/dL Normal 7-25 [facility] Comment on above: Performed By: #### C BC #### [address] Urine Cultureon 12-03-2023 Bacteria identified Cx Nom (U) 20,000 colonies/ml mixed bacterial skin contaminants 2 Days PERFORMED BY: [place] [address] PATHOLOGIST GROCERY CLERK ROBERT PRADHAN M.D. Normal [facility] Comment on above: Performed By: #### U A, OBUDS #### [address] Urine appearanceOrdered By: Aldair Sandra on 12-03-2023 Appearance (U) Cloudy Critically abnormal Clear [facility] Comment on above: Order Comment: Comme nt s/s of acute impairment Performed By: #### U A, OBUDS #### [address] Urobilinogen Test strip (U) [Mass/Vol]Ordered By: Aldair Sandra on 12-03-2023 Urobilinogen (U) [Mass/Vol] 2 mg/dL High Normal [facility] pH of Urine by Test stripOrd ered By: Aldair Sandra on 12-03-2023 pH (U) 5.5 [pH] Normal 5.0-9.0 [facility] Comment on above: Order Comment: Comme nt s/s of acute impairment Performed By: #### U A, OBUDS #### [address] Coding Summary.on 10-03-2023 Coding Summary. [id number]+PG hlYWQ+ HB7LXZOyY25ebCCnlT5iJ5FEOE eYVjkuWJWZAQbOHyGdmmPuAS6y aXNjZXJu IC8+LG1bIXOgYxhgaFAdg3V4rR Z2U83zwv5fRIuavDC2YBYfTaRj qavgg7oagIa9HCwlHbnwTxYr ERKyvM96TSF8mX84Pu94jYJhmY Aog6pqwSc3EoUnKEKgTER6xUxk ENzet3WbFFHxP76ujQVyg3X1 CPPirHlfsWDpUyEbtVW3gR7dTB tnrdnmc6awizrcIwc4si58hPSb p9F6vLB7C6XpmoT8CITzyBCw NgzysDREaJ0rmdhns8qbdyjsVf NgFCDeLVa6LEc0RJYysLurLlVw JR97JHD1ELNbrqZsP7XwURKg vVidRtN5q6D9Cp2EP7TZAsiuW6 VNTUFSWTwvdGQ+AH27jk33G1Cc QcqqDdh7SKHnDSD2fHP5dM1d PAPaTBsjr9W5jJN2W2NcdgDxzj 9zz5veAZFxOXaxS26zhZTuj9O1 LZXvkAO3BQVtmNthJuFrtI15 Oyc+KXYniZtjk2YcCsgrm3yof7 vieIi9RmdiCMSgmjBhcRacFXY9 p4RaQo1dRSSlzET8yUQ2aS4l BjHaLcL1QOleA780SxBjgCJbEp ekJ38kB8VqxZQ+LMHjGpm1ANPt oBzzUT4pW5DgVVTwhxjrkSPb pUckUC4sCJZjvgvuEWCcxJ6qDB FaZ1c9SbKlAqY8OIztU3LhTHYa bosgJx07uO2tGaNzQgI4FHir P1DnkbJ1JHJmsHQdDQzkJVG8Q9 0xt8L0YVSzTORrNTE2iOU3dZ4e bGlnbjogbGVmdDsgdmVydGlj RXaaLBfiU161UTDnyMbzIpPwCK luZyBEYXRlOiAgMDYvMTkvMjAy NDwvdGQ+XOTrGGX6vSggKNAr xYLmROvfOl4vzHibiGhxEU4xVT DsnpdfNUMsqG3yUKCxuKYmwMhf TU6cFQWfrtzxk169XnRzXQQ9 OYGvlVIaX8KmnE7zWjLfOOCfGR SrF2QsnLEbQJwfH689NFkmOpS0 SUNtvmKcP4BrSHOluOfdImJ4 n6I2Ef4Jm1AgcjmtF6LbaKAbZv OkHmgoQPp2Y9GxPtunaCO+PC90 XLNtZE45IRw2LHE4wYxuRQkw XUAyP1VliA2rUnFePGVnYVXfQk c+PHRhYmxlIHdpZHRoPScxMDAl FnVxyDyjOA8rBr3dUDBwHKNu mHydxHJgIrXio2eeOCVuLFvwNN 6rjNsfQ6LjzPA5PNTgq4h0Nl76 W90zW0PlfME+HYLigHS4qCA8 lT6pJwUzGsA6RYuoR654HfJnaY FdTvtco8xjz1rreXx7OxT6QSWi joXpuOmdWMR2v9LoUn19S45t IHdpZHRoPSIxNSUiIHZhbGlnbj 1myR8rLs0+QILwaEE7mXK7vE2n IxUrHxJ9KUzsC331MxEvbSYf Pibpt2wwh1sgqRp9RaFxLGEjgc GhcQwwRHV7x2BqGm90V7CcmHxo k3NjEmh6ni81jIJaf7R4vXA5 C1PkJUWejvfttMYceNswDP3jTR XtserqBSSsaW9zGAUgK2s8DgQb ZwH7UGilS6RjbeV8GSIyiXTe ANQgdDZSdX9rztmab7umaturUu XuBSAeBTw5OIj6JKGauMxmDgSq HGO9QiG1ROM0sXBxxL6dpFxg guictQ3dYzw+JRZ9iILcmISRLK 1lOjwvdGQ+VFGsMEH0kHbvVDyy HZCxxA5nLUAeB2w8VyJjEzA5 NNckN7DhxgO5ROPcyXStXTUjxQ OAfQ4qsjnwo5rpaglgYmFuMZHx IUi3LBc6LTZhcOfwYiFaNKB5 LuV9PXJ3yECsjW0niTvceonicV 9wOyc+GnldxDnlQPF5UQb5A7Bp Jha0MYBldGxcAT8wpRQkZSjk Xi6udDpfzLubZI1mTQPjlmnlq1 83SvZml9xhVNCjyTKvNDvhUYH6 K73al1I8CDUiNTWnJIF4iYN3 lC8okUuxnyuxnCLkjYwfxtEiaX uoPHvtTMvzA000RQCziNabOvHb VMp2E9IhTla7ZYMscQzmSF5d cCMeEAfvWn4eqUgyoPxjWQ3jMG Iaxlslw993AyMju0wcAUNtnVAu UCcnECK2S92ue8S1HPFvVKPn LYB2bNA5iE6doGvkflligNHwqH rnahXytQqaAWpvGSjuZ875BNMr kFdkBjAgcFu0H8MwVsx5JAHs kGrvWM6vaEPpHQchPd9oxOuusG juSF7yHSOnptpod607PvVhn5yv AHNhaPItJQqeJII0X92dk1Q3 WONvBTKxDEU0cBC6pM0bzRkkhc ogbGVmdDsgdmVydGljYWwtYWxp E835NVCjnGamCcBaqQjnckJl YVcoQVg9Q0XmMxfsgWB+PC90YW NeVY26uMTtwERfh8uhdZu4HeDr FREaIGL3vZxjHDgds5QlDUIp H16znCRzi3L0MWFzjFycxIVdVk YptZB8zW3mINiictaxv4innucy Dqbbd8lbsf88kQ93O28wIJeq CYYoGYJmQIQdAZQefCjmut4ygP 9wIi8+DDDroNH2yAG4sE1aZIMm QgE8XPthP865UyGgrEWyZrxq f0oti0uisIe1ZtQ6SHGxaeNfzN lcQCX0p3UkZg86Q27rWMnxBLBj REQqNAFyNXDauIwavc6zgM8f Ii8+ZRJdeET7yMW4tN1nRpWuKr N5ZKkaI493DnGwnGLrHkggI81m E4RurIE+DPRzVgd8YPKxbKgv LO5lgXTnYDcdXf3fIBM9ZoBoEv UiTCtuS6ZpHWIqtywfhcnerSC8 RURgMHJqzH48Du9oeTbwJHOc fQYRnI6icdawj9ueznvuCgKyRI FyNMc0UDc3ZXSvgTyiJcGpRQE7 LiB6EAQ6hZRjzD4nmAfgojmf oE8dO6ZrVYOotwmaZe72dS8cYb YwPcN0WNulJbr+L6bJP11CXBHL RHaSHMJBGU09DV77tOXcj9U8 sMW6I8MpZFWyrudxdnnlrTR3LS XvPJWdhP83dYIaTEelKj5vb8G3 a816GTZlARYriG23Fa0fpYfg XIGtoEKIjI7hytsvj3qsycviFz OtMQXbCWt8FCt5INGmyLpbFoLa SXG8DyR8VBO8uLVhjL4ptAhv qymxqJ4nGql+MDIvMjYvMjAwND wvdGQ+EKCiWJH0zNxdOInyNGPh gH1vUSFlA4b6CgZeKrA1THoz R1ApVIMiaedjIz82eU6pLqHxSt A0OErqC3DrgwT0LPHrmSPlYLaa MZK3O87vm8X6FNObPZSrCOV4 yZR6yU3hlGfyjtbdlXOwnQjufj TeoFnlJWyjAXmbL287BDCfuWrc BeBaWNrrABQdYM06GH72dMMy j9D9vQZ8D3SsLDBcuanzdbezcJ A2IGJwFYGxmN09qQInXInkIk8j d5H4z094XXOlUCVrwR66Wz6g uKuvAYGnzJDHnX6qmeibs1ivke lvGnTjLRByTFm9BNw9WUQrbGeg VvPkANI8IiI2HCX2hWQkzN2u cGqyxosqnK5cMbu+RmVtYWxlPC 08VC41mCFgv9I0uIG1U7SoXLBu xstvdcisaGB9ISKnHTUtxB19 gVDuSNtfCe7bj9K1t687LWJgSH RhmV53Ir0soBijLAWpvKALqS9i rkuxn7cfkgumTbHbHQZjCCn2 JUt2DSUakNlcKvAaNFN3RiI2TW Y3tJRefQ9qwEusnbaqoT9yWcr+ MP7caxoymvC5OB84NM84F6Gj PjwvdGFibGU+PHRhYmxlIHdpZH IqBPvrZRZjJkKmuZrxHV7oVb2s NAVfDHTgvKnoyYKfCvUqr9ev CHViUUsjLM0lnYndW8KszWH6CL Sfp8d7Ac74V84gC7EjxCZ+PGNv aUF8mSB5lI5vUxHbObK7ZYej W603OeBqmIMyQewnl1ueq9wioE x6YxDuWRVilwJrlXrsBUK6c5Ni Lf80T37aDBbjYAJwCPCcBAUc BYRfaNtgjc2wzD3oHo6+PGNvbC Z7uFA3eP7lYqBlRmN2IGbmR534 FsBabKTaNbmjE48iE6OeqGW+ HSDoAoz6VOSqwHztTT9caRFhYC rcJt0qXLC2EbIbNaJhKMzxC5Fz KLIlmratzyupkRB4BCCoERKi rS35Zb3ljKeoGp6jMKUiLBS0UV BelTDqK7BxuX8iTzKkXHLpVFNc I9JohGMfRHvyE111HVrjQeA5 JIOuikQkF8ZoTAXmuEvkTmK5w9 Y5Yd3NqAhclYXtRG5mNjFxKVn6 F3VqKts9BUOwhCliYE1tnIYp DXxoFt9deXuswPxoTG1xTFQnxq nrf700AqCbi9hnHHRtzQJeKMnz CEW2T90xc8A7NMTbKOQuJWP2 jLS6pK7lbMjbqhgmgIIspLluwi XttPivXVrePJbbD049IHYaoJyd VyCXJat1I7IgWpr3UBZlyOjq UV4aaRVpLLcaOe1svJqqnDyrGV 7sENJdhenld060OfEto3cdANWz pCNtKVtrLIF2T75rh3Q6CMEp YZSxRRS6gTQ8gC7goDdggnzzzF DugVpksdZnpTinQNilVMimU726 PNZtlGisRl7COlv3T4YmQva3 MOQpjScoFV6bzICvDNmcRe0ygB mkvIqbHH9hGKHgswapk365TiFc i5bxALVdbFOwYIphALT6F50u q5M1KWGqLCAuMLQ5fXS7cZ4stS lnbjogbGVmdDsgdmVydGljYWwt MFurX400ZSChrHhjWxFfqCPn OjwvdGQ+WD73mz67G3HrSljiTq g6SSKwYGW1yCQ1zD5wTRLzBCrx w3C9eKM7P1EiyoVhsc4oa3nj NAWxDQjbN11dn (more content not included)... Normal [facility] CT Abdomen/Pelvis w/ Contras ton 10-01-2023 CT [...] Oral contrast amount in ml's: 0 Normal [facility] Discharge Instructionson Discharge Instructions [id number] Normal [facility] ED Note-Physicianon 10-01-19 ED Note-Physician Basic Information [...] well. Reports surgery was done at [facility]. Denies any fever or chills. Denies [...] and Complexity of Problems Differential Diagnosis: [] [facility] Data External documents reviewed: [] [...] Medications Administered Given GenDil 100 mL + endq80QDR [F] 1000 mg, IV Piggyback NS 1000 ml Bolus, 1000 mL, IV ondansetron 4 mg/2 mL Inj, 4 mg, IV Push Disposition Plan Patient Discharge Condition stable Discharge Disposition to home Discharge Prescription List Prescriptions No active prescription medications Follow-up With When Contact Information ALLI CINDI In 3 days 10/03/2023 EDT [address] [place] [address] Business (1) Additional Instructions: Call Dr for diagnosis based follow up Patient Education Constipation, Adult, Aufu-ou-Ofkw Abdominal Pain, Adult Attestation Patient seen and evaluated by the physician wily (more content not included)... Normal [facility] Comment on above: Result Comment: Elec tronically Signed By: Dalton Padilla PA-C\.br\Date and Time Signed: 09/30/23 22:56 EDT\.br\Electronically Co-Signed By: Dino Mccollum DO.br\Date and Time Co-Signed: 10/01/23 01:46 EDT B hCG Qualon 09-30-2023 Beta HCG ( test) Ql Negative Normal [facility] Comment on above: Performed By: #### 2 [id number] #### [facility] [address] [place], [place] [id number] BMPon 09-30-2023 Anion gap [Moles/Vol] 10 mmol/L Normal 6-16 [facility] Comment on above: Performed By: #### 2 932403 #### [facility] [address] [place] [address] Calcium [Mass/Vol] 8.9 mg/dL Normal 8.9-11.1 [facility] Comment on above: Performed By: #### 2 271443 #### [facility] [address] [place] [address] Chloride [Moles/Vol] 110 mmol/L Normal 101-111 [facility] Comment on above: Performed By: #### 2 127435 #### [facility] [address] [place] [address] CO2 [Moles/Vol] 22 mmol/L Normal 21-31 [facility] Comment on above: Performed By: #### 2 980682 #### [facility] [address] [place] [address] Creatinine [Mass/Vol] 0.7 mg/dL Normal 0.5-1.3 [facility] Comment on above: Performed By: #### 2 996646 #### [facility] [address] [place] [address] Glucose [Mass/Vol] 100 mg/dL Normal 55-199 [facility] Comment on above: Performed By: #### 2 349349 #### [facility] [address] [place] [address] Potassium [Moles/Vol] 4.0 mmol/L Normal 3.5-5.3 [facility] Comment on above: Performed By: #### 2 252969 #### [facility] [address] [place] [address] Sodium [Moles/Vol] 138 mmol/L Normal 135-145 [facility] Comment on above: Performed By: #### 2 484705 #### [facility] [address] [place] [address] Urea nitrogen [Mass/Vol] 10 mg/dL Normal 5-21 [facility] Comment on above: Performed By: #### 2 194311 #### [facility] [address] [place] [address] Urea nitrogen/Creatinine [Mass ratio] 14 No Units Normal 10-20 [facility] Comment on above: Performed By: #### 2 268860 #### [facility] [address] [place] [address] CBC w/ Auto Diffon 4 Basophils/100 WBC (Bld) 1.2 % Normal 0.0-2.0 [facility] Comment on above: Performed By: #### 2 380709 #### [facility] [address] [place] [address] Basophils/Leukocytes Auto (Bld) [Pure # fraction] 0.1 E9/L Normal 0.0-0.2 [facility] Comment on above: Performed By: #### 2 528825 #### [facility] [address] [place] [address] Eosinophils (Bld) [#/Vol] 0.3 E9/L Normal 0.0-0.5 [facility] Comment on above: Performed By: #### 2 274792 #### [facility] [address] [place] [address] Eosinophils/100 WBC (Bld) 4.3 % Normal 0.0-8.0 [facility] Comment on above: Performed By: #### 2 259978 #### [facility] [address] [place] [address] Erythrocyte distribution width (RBC) [Ratio] 13.8 % Normal 10.9-14.2 [facility] Comment on above: Performed By: #### 2 167166 #### [facility] [address] [place] [address] Hematocrit (Bld) [Volume fraction] 33.8 % Low 34.0-46.0 [facility] Comment on above: Performed By: #### 2 881544 #### [facility] [address] [place] [address] Hemoglobin (Bld) [Mass/Vol] 12.1 g/dL Normal 12.0-16.0 [facility] Comment on above: Performed By: #### 2 752517 #### [facility] [address] [place] [address] Lymphocytes (Bld) [#/Vol] 1.9 E9/L Normal 1.0-4.0 [facility] Comment on above: Performed By: #### 2 964933 #### [facility] [address] [place] [address] Lymphocytes/100 WBC (Bld) 26.2 % Normal 14.0-50.0 [facility] Comment on above: Performed By: #### 2 582853 #### [facility] [address] [place] [address] MCH (RBC) [Entitic mass] 33.0 pg Normal 27.0-34.0 [facility] Comment on above: Performed By: #### 2 785846 #### [facility] [address] [place] [address] MCHC (RBC) [Mass/Vol] 35.7 g/dL Normal 31.4-36.0 [facility] Comment on above: Performed By: #### 2 681244 #### [facility] [address] [place] [address] MCV (RBC) [Entitic vol] 92.4 fL Normal 80.0-100.0 [facility] Comment on above: Performed By: #### 2 810623 #### [facility] [address] [place] [address] Monocytes (Bld) [#/Vol] 0.7 E9/L Normal 0.2-1.0 [facility] Comment on above: Performed By: #### 2 146282 #### [facility] [address] [place] [address] Neutrophils (Bld) [#/Vol] 4.2 E9/L Normal 2.0-7.5 [facility] Comment on above: Performed By: #### 2 859400 #### [facility] [address] [place] [address] Neutrophils/100 WBC (Bld) 58.5 % Normal 36.0-75.0 [facility] Comment on above: Performed By: #### 2 340950 #### [facility] [address] [place] [address] Platelet 232.0 E9/L Normal 150.0-500. 0 [facility] Comment on above: Performed By: #### 2 946947 #### [facility] [address] [place] [address] Platelet mean volume (Bld) [Entitic vol] 8.6 fL Normal 6.4-10.8 [facility] Comment on above: Performed By: #### 2 371871 #### [facility] [address] [place] [address] RBC (Bld) [#/Vol] 3.7 E12/L Low 4.3-5.9 [facility] Comment on above: Performed By: #### 2 957596 #### [facility] [address] [place] [address] WBC corrected for nucl RBC Auto (Bld) [#/Vol] 7.3 E9/L Normal 4.0-11.0 [facility] Comment on above: Performed By: #### 2 485339 #### [facility] [address] [place] [address] CHEMISTRYOrdered By: SYSTEM SYSTEM on 09-30-2023 Albumin [...] for Treatmenton 09-14 Consent for Treatment [id number]#1.00TIFF Normal [facility] ED Clinical Summaryon 2023 ED Clinical Summary (Inserted Image. Brianna ble to display) [address] [address] ED Clinical Summary Person Information Name: THUY MALIK/New_Isael Age: 18 Years : 2005 Sex: Female Language: Gambian PCP: ALLI MACK CNP Marital Status: Single [...] 09/30/2023 23:02:52 09/30/2023 23:02:52 09/30/2023 23:02:52 ADDRESS: [address] [place] [phone] [facility] DOC NOTES: MEDICAL INFORMATION: Prescriptions Given: [...] 1. PATIENT EDUCATION INFORMATION: Instructions: Constipation, Adult, Qsjt-da-Awhx; Abdominal Pain, Adult Follow up: With: Address: When: ALLI MACK [address] [place] [phone] Business (1) In 3 days 10/03/2023 Comments: [...] in fat and sugar, such as: ? Serbian fries. ? Hamburgers. ? Cookies. ? Candy. ? Soda. ? Drink enough fluid to keep your pee (urine) pale yellow. General instructions ? Exercise regularly or as told by your doctor. Try to do 150 minutes of exercise each week. ? Go to the restroom when you feel like you need to poop. Do not hold it in. ? Take fquk-vgx-tsmxaoj and prescription medicines only as told by [...] your pee (urine) pale yellow. ? Take fpct-dwz-urdjzaf and prescription medicines only as told by your doctor. These include any fiber supplements. This information is not intended to replace advice given to you by your health care provider. Make sure you discuss any questions you have with your health care provider. Document Revised: 02/18/2020 Document Reviewed: 02/18/2020 [employer] Patient Education ? 2022 [employer]. Abdominal Pain, Adult Pain in the abdomen [...] these instructions at home: Medicines ? Take mqoh-oac-ytjrfof and prescription medicines only as told by [...] your condition for any changes. ? Take qkgc-fel-vpwtesb and prescription medicines only as told by your health care provider. ? Contact a health care provider if your abdominal pain changes or gets worse. ? Get help right away if you have severe pain, cram (more content not included)... Normal [facility] ED Patient Summaryon 024 ED Patient Summary (Inserted Image. Brianna ble to display) [address] [address] Patient Discharge Instructions Person Information Name: THUY MALIK Age: 18 Years Arrival Date: 09/30/2023 19:36:09 Discharge Diagnosis: Abdominal pain; Constipated Primary Care Physician: ALLI MACK CNP Provider Information Primary Provider: Dino Mccollum DO Advanced Sleeping Car Conductor:None The exam and treatment you received in the Emergency Department were for an urgent problem and are not intended as complete care. It is important that you follow up with a doctor, nurse practitioner, or physician?s respiratory assistant for ongoing care. If your symptoms [...] Follow-up Instructions: With: Address: When: ALLI MACK [address] [place] [phone] Business (1) In 3 days 10/03/2023 Comments: Call Dr for diagnosis based follow up In the event that this physician does not participate in your insurance network, please consult with your insurance company to find a nearby participating provider. Patient Education Materials: Constipation, Adult, Mvxn-rd-Lgec; Abdominal Pain, Adult A MESSAGE TO ALL PATIENTS REGARDING OPIOIDS PRESCRIPTION OPIOIDS: WHAT YOU NEED TO KNOW Prescription opioids can be used to help relieve ylfnyeeu-xx-qgyabl pain and are often prescribed following a [...] be struggling with addiction, tell your health health care administrator and ask f (more content not included)... Normal [facility] HEMATOLOGYOrdered By: SYSTEM SYSTEM on 09-30-2023 Basophils/100 [...] 09-30-2023 Albumin [Mass/Vol] 4.0 g/dL Normal 3.3-5.0 [facility] Comment on above: Performed By: #### 2 155150 #### [facility] [address] [place] [address] Albumin/Globulin (S) [Mass conc ratio] 1.8 Normal 1.1-2.2 [facility] Comment on above: Performed By: #### 2 444634 #### [facility] [address] [place] [address] ALP [Catalytic activity/Vol] 37 Int._Unit/L Normal 21-98 [facility] Comment on above: Performed By: #### 2 553262 #### [facility] [address] [place] [address] ALT No additional P-5'-P [Catalytic activity/Vol] 8 Int._Unit/L Normal 6-46 [facility] Comment on above: Performed By: #### 2 421981 #### [facility] [address] [place] [address] AST [Catalytic activity/Vol] 13 Int._Unit/L Normal 5-43 [facility] Comment on above: Performed By: #### 2 179731 #### [facility] [address] [place] [address] Bilirubin [Mass/Vol] 0.5 mg/dL Normal 0.0-1.1 [facility] Comment on above: Performed By: #### 2 327230 #### [facility] [address] [place] [address] Bilirubin.direct [Mass/Vol] 0.1 mg/dL Normal 0.0-0.4 [facility] Comment on above: Performed By: #### 2 001786 #### [facility] [address] [place] [address] Bilirubin.indirect [Mass or moles/Vol] 0.4 mg/dL Normal 0.1-0.9 [facility] Comment on above: Performed By: #### 2 264295 #### [facility] [address] [place] [address] Globulin (S) [Mass/Vol] 2.2 g/dL Normal 1.4-4.0 [facility] Comment on above: Performed By: #### 2 600476 #### [facility] [address] [place] [address] Protein [Mass/Vol] 6.2 g/dL Normal 6.0-7.8 [facility] Comment on above: Performed By: #### 2 926764 #### [facility] [address] [place] [address] Lipase Levelon 09-30-2023 Lipase [Catalytic activity/Vol] 20 U/L Normal 13-58 [facility] Comment on above: Performed By: #### 2 031184 #### [facility] [address] [place] [address] RAD - Preliminary Cat Scan R eporton 09-30-2023 RAD - Preliminary Cat Scan Report [id number]#1.00TIFF Normal [facility] SEROLOGYOrdered By: Ana Hutchins on 09-30-2023 Beta HCG ( test) Ql Negative (09/30/23 8:19 PM) Normal [facility] Man Sero UA with Cult Rflxon 09-30-19 Bilirubin Ql (U) Negative Normal Negative [facility] Comment on above: Performed By: #### 4 [id number] #### [facility] [address] [place] [address] Clarity (U) Turbid Abnormal Clear [facility] Comment on above: Performed By: #### 4 [id number] #### [facility] [address] [place] [address] Color (U) Yellow Normal Yellow [facility] Comment on above: Result Comment: Micr oscopic readings are only performed on those samples that meet specific criteria set forth by [facility]. Performed By: #### 4 [id number] #### [facility] [address] [place] [address] Epithelial cells.squamous Auto (Urine sed) [#/Area] >10 Invalid Interpretation Code [facility] Comment on above: Performed By: #### 4 [id number] #### [facility] [address] [place] [address]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 measurementOrdered By: Dean Solis on 07-10-2022 Cholesterol in HDL [Mass/Vol] 53 mg/dL 35-85 [facility] Comment on above: HDL CHOL ATP-III CLA SSIFICATION Cardiovascular RiskHDL > or equal to 60 mg/dL LOWHDL < 40 mg/dL HIGH Serum or plasma total choles terol/high density lipoprotein (HDL) cholesterol mass ratOrdered By: Dean Solis on 07-10-2022 Cholesterol.total/Chol esterol in HDL [Mass ratio] 2.5 {ratio} <5.0 [facility] Thyrotropin [Units/volume] i n Serum or PlasmaOrdered By: Dean Solis on 07-10-2022 TSH Qn 3.34 m[IU]/L 0.45-5.33 [facility] Triglyceride [Mass/volume] i n Serum or PlasmaOrdered By: Dean Solis on 07-10-2022 Triglyceride [Mass/Vol] 62 mg/dL 0-149 [facility] Comment on above: TRIG ATP III CLASSIF ICATIONTRIG less than 150 mg/dL NormalTRIG 150-199 mg/dL Borderline highTRIG 200-500 mg/dL High TRIG greater than 500 mg/dL Very highStandard traceable to the Center for Disease Conrtrol and Prevention (CDC) test method. Vitamin D+Metabolites [Mass/ volume] in Serum or PlasmaOrdered By: Dean Solis on 07-10-2022 Vitamin D+Metabolites [Mass/Vol] 12.0 ng/mL 30-100 [facility] Comment on above: VITAMIN D STATUS 25( OH)VITAMIN D RANGE (ng/mL) Deficient <20 Insufficient 20 to <30Sufficient 30 to 100Reference: Cem MF,Bernadine NC, Trudi PRICE, et al. Evaluation,treatment, and prevention of vitamin D deficiency; an Endocrine Society clinical practice guideline. JCEM. 2010; 96(7):1911-30. ACETAMINOPHENon 07-09-2022 Acetaminophen [Mass/Vol] ug/mL Critically low 10.0-30.0 [facility] Comment on above: Performed By: #### C SERINA GUPTA ACET #### [facility] [address] [address] [address] Skylar Ramirez CBC AUTO DIFFon 07-09-2022 BASO # 0.1 103/ul Normal 0.0-0.1 [facility] Comment on above: Performed By: #### C BC #### [facility] [address] [place] [address] Dr. Skylar Ramirez Basophils/100 WBC (Bld) 0.6 % Normal 0.2-2.0 [facility] Comment on above: Performed By: #### C BC #### [facility] [address] [place] [address] Dr. Skylar Ramirez EO # 0.1 103/ul Normal 0.0-0.7 [facility] Comment on above: Performed By: #### C BC #### [facility] [address] [place] [address] Dr. Skylar Ramirez Eosinophils/100 WBC (Bld) 1.0 % Normal 0.9-7.0 [facility] Comment on above: Performed By: #### C BC #### [facility] [address] [place] [address] Dr. Skylar Ramirez Erythrocyte distribution width (RBC) [Ratio] 12.6 % Normal 11.0-15.0 [facility] Comment on above: Performed By: #### C BC #### [facility] [address] [place] [address] Dr. Skylar Ramirez Hematocrit (Bld) [Volume fraction] 39.7 % Normal 36.0-48.0 [facility] Comment on above: Performed By: #### C BC #### [facility] [address] [place] [address] Dr. Skylar Ramirez Hemoglobin (Bld) [Mass/Vol] 14.4 g/dL Normal 12.0-16.0 [facility] Comment on above: Performed By: #### C BC #### [facility] [address] [place] [address] Dr. Skylar Ramirez IG # 0.03 10e3/ul Normal 0.00-0.03 [facility] Comment on above: Performed By: #### C BC #### [facility] [address] [place] [address] Dr. Skylar Ramirez IG % 0.4 % Normal 0.0-0.5 [facility] Comment on above: Performed By: #### C BC #### [facility] [address] [address] [address] Skylar Ramirez LYMPH # 2.2 103/ul Normal 1.2-3.8 [facility] Comment on above: Performed By: #### C BC #### [facility] [address] [address] [address] Skylar Ramirez Lymphocytes/100 WBC (Bld) 27.4 % Normal 20.5-60.0 [facility] Comment on above: Performed By: #### C BC #### [facility] [address] [place] [address] Dr. Skylar Ramirez MANUAL DIFF REQ NO Normal [facility] Comment on above: Performed By: #### C BC #### [facility] [address] [place] [address] Dr. Skylar Ramirez MCH (RBC) [Entitic mass] 33.6 pg Normal 26.7-34.0 [facility] Comment on above: Performed By: #### C BC #### [facility] [address] [place] [address] Dr. Skylar Ramirez MCHC (RBC) [Mass/Vol] 36.3 g/dL Critically high 29.9-35.2 [facility] Comment on above: Performed By: #### C BC #### [facility] [address] [place] [address] Dr. Skylar Ramirez MCV (RBC) [Entitic vol] 92.5 fL Normal 81.0-99.0 [facility] Comment on above: Performed By: #### C BC #### [facility] [address] [place] [address] Dr. Skylar Ramirez MONO # 0.4 103/ul Normal 0.3-0.8 [facility] Comment on above: Performed By: #### C BC #### [facility] [address] [place] [address] Dr. Skylar Ramirez Monocytes/100 WBC (Bld) 5.5 % Normal 1.7-12.0 [facility] Comment on above: Performed By: #### C BC #### [facility] [address] [place] [address] Dr. Skylar Ramirez NEUT # 5.3 103/ul Normal 1.4-6.5 [facility] Comment on above: Performed By: #### C BC #### [facility] [address] [place] [address] Dr. Skylar Ramirez Neutrophils/100 WBC (Bld) 65.1 % Normal 43.0-75.0 [facility] Comment on above: Performed By: #### C BC #### [facility] [address] [place] [address] Dr. Skylar Ramirez Platelet mean volume (Bld) [Entitic vol] 9.8 fL Normal 9.5-13.5 [facility] Comment on above: Performed By: #### C BC #### [facility] [address] [place] [address] Dr. Skylar Ramirez PLT 316 103/ul Normal 150-450 [facility] Comment on above: Performed By: #### C BC #### [facility] [address] [place] [address] Dr. Skylar Ramirez RBC 4.29 106/ul Normal 4.20-5.40 [facility] Comment on above: Performed By: #### C BC #### [facility] [address] [place] [address] Dr. Skylar Ramirez WBC 8.1 103/ul Normal 4.0-11.0 [facility] Comment on above: Performed By: #### C BC #### [facility] [address] [place] [address] Dr. Skylar Ramirez DRUG SCREEN RAPID (URINE)on 07-09-2022 AMP Negative Normal NEGATIVE [facility] Comment on above: Performed By: #### E TH #### [facility] [address] [place] [address] Dr. Skylar Ramirez BAR Negative Normal NEGATIVE [facility] Comment on above: Performed By: #### E TH #### [facility] [address] [place] [address] Dr. Skylar Ramirez BUP Negative Normal NEGATIVE [facility] Comment on above: Performed By: #### E TH #### [facility] [address] [place] [address] Dr. Skylar Ramirez BZO Negative Normal NEGATIVE [facility] Comment on above: Performed By: #### E #### [facility] [address] [place] [address] Dr. Skylar Ramirez RICHIE Negative Normal NEGATIVE [facility] Comment on above: Performed By: #### E #### [facility] [address] [place] [address] Dr. Skylar Ramirez CUT-OFFS SEE BELOW Normal [facility] Comment on above: Result Comment: AMP (Amphetamine): [...] By: #### E #### [facility] [address] [place] [address] Dr. Skylar Ramirez DRUG CUT HEADER DRUG CLASS TEST SYST EM CUT-OFF CONCENTRATIONS ARE FOLLOWS: Normal [facility] Comment on above: Performed By: #### E #### [facility] [address] [place] [address] Dr. Skylar Ramirez mAMP Negative Normal NEGATIVE [facility] Comment on above: Performed By: #### E #### [facility] [address] [place] [address] Dr. Skylar Ramirez MTD Negative Normal NEGATIVE [facility] Comment on above: Performed By: #### E #### [facility] [address] [place] [address] Dr. Skylar Ramirez OPI Negative Normal NEGATIVE [facility] Comment on above: Performed By: #### E #### [facility] [address] [place] [address] Dr. Skylar Ramirez OXY Negative Normal NEGATIVE [facility] Comment on above: Performed By: #### E TH #### [facility] [address] [place] [address] Dr. Skylar Ramirez PCP Negative Normal NEGATIVE [facility] Comment on above: Performed By: #### E #### [facility] [address] [place] [address] Dr. Skylar Ramirez PPX Negative Normal NEGATIVE [facility] Comment on above: Performed By: #### E #### [facility] [address] [place] [address] Dr. Skylar Ramirez TCA Negative Normal NEGATIVE [facility] Comment on above: Performed By: #### E #### [facility] [address] [place] [address] Dr. Skylar Ramirez THC Positive Abnormal NEGATIVE [facility] Comment on above: Performed By: #### E #### [facility] [address] [place] [address] Dr. Skylar Ramirez ER URINE PROFILEon 3 Bilirubin Ql (U) Negative Normal NEGATIVE [facility] Comment on above: Performed By: #### D MARIBETH ERUR #### [facility] [address] [place] [address] Dr. Skylar Ramirez Clarity (U) CLEAR Normal CLEAR [facility] Comment on above: Performed By: #### D MARIBETH ERUR #### [facility] [address] [place] [address] Dr. Skylar Ramirez Color (U) LT. YELLOW Normal YELLOW [facility] Comment on above: Performed By: #### D MARIBETH ERUR #### [facility] [address] [place] [address] Dr. Skylar FARMERAHJessica A micrscopic examina tion will be performed if indicated. Normal [facility] Comment on above: Performed By: #### D MARIBETH ERUR #### [facility] [address] [place] [address] Dr. Skylar Ramirez Glucose Ql (U) Negative Normal NEGATIVE [facility] Comment on above: Performed By: #### D RUGRPD, ERUR #### [facility] [address] [address] [address] Skylar Ramirez Hemoglobin Ql (U) Negative Normal NEGATIVE [facility] Comment on above: Performed By: #### D RUGRPD, ERUR #### [facility] [address] [address] [address] Skylar Ramirez Ketones Ql (U) Negative Normal NEGATIVE [facility] Comment on above: Performed By: #### D RUGRPD, ERUR #### [facility] [address] [address] [address] Skylar Ramirez LEUKOCYTES Negative Normal NEGATIVE [facility] Comment on above: Performed By: #### D RUGRPD, ERUR #### [facility] [address] [place] [address] Dr. Skylar Ramirez Nitrite Ql (U) Negative Normal NEGATIVE [facility] Comment on above: Performed By: #### D ROCIORPD, ERUR #### [facility] [address] [address] [address] Skylar Ramirez pH (U) 6.0 [pH] Normal 5-9 [facility] Comment on above: Performed By: #### D ROCIORPD, ERUR #### [facility] [address] [place] [address] Dr. Skylar Ramirez SPEC GRAVITY <=1.005 Abnormal 1.005-<=1. 025 [facility] Comment on above: Performed By: #### D RUGRPD, ERUR #### [facility] [address] [address] [address] Skylar Ramirez UA PROTEIN Negative Normal NEGATIVE/ TRACE [facility] Comment on above: Performed By: #### D RUGRPD, ERUR #### [facility] [address] [address] [address] Skylar Ramirez UR MICRO IND NOT INDICATED Normal [facility] Comment on above: Performed By: #### D RUGRPD, ERUR #### [facility] [address] [address] [address] Skylar Ramirez Urobilinogen Qn (U) 0.2 {Evens'U}/dL Normal 0.2 - 1. 0 [facility] Comment on above: Performed By: #### D RUGRPD, ERUR #### [facility] [address] [address] [address] Skylar Ramirez ETHANOL (BLD ALC)on 07-10-19 23 ALC NOTE NOTE: 80 mg/dl is th e legal limit for a blood alcohol level Normal [facility] Comment on above: Performed By: #### E TH #### [facility] [address] [place] [address] Dr. Skylar Ramirez Ethanol [Mass/Vol] 90 mg/dL Normal [facility] Comment on above: Performed By: #### E TH #### [facility] [address] [place] [address] Dr. Skylar Ramirez ALC NOTE NOTE: 80 mg/dl is th e legal limit for a blood alcohol level Normal [facility] Comment on above: Performed By: #### E TH #### [facility] [address] [address] [address] Skylar Ramirez Ethanol [Mass/Vol] 116 mg/dL Normal [facility] Comment on above: Performed By: #### E TH #### [facility] [address] [place] [address] Dr. Skylar Ramirez PREG HCG QUALon 07-09-2022 , QUAL Negative Normal NEGATIVE [facility] Comment on above: Performed By: #### P REG #### [facility] [address] [place] [address] Dr. Skylar Ramirez PROF 14(COMP METB)on 023 Albumin [Mass/Vol] 4.4 g/dL Normal 3.4-5.0 [facility] Comment on above: Performed By: #### C MP, SALYC, ACET #### [facility] [address] [place] [address] Dr. Skylar Ramirez Albumin/Globulin [Mass ratio] 1.5 {ratio} Normal [facility] Comment on above: Performed By: #### C MP, SALYC, ACET #### [facility] [address] [address] [address] Skylar Ramirez ALP [Catalytic activity/Vol] 65 U/L Normal 46-116 [facility] Comment on above: Performed By: #### C MP, SALYC, ACET #### [facility] [address] [place] [address] Dr. Skylar Ramirez ALT [Catalytic activity/Vol] 16 U/L Normal 14-59 [facility] Comment on above: Performed By: #### C MP, SALYC, ACET #### [facility] [address] [place] [address] Dr. Skylar Ramirez Anion gap [Moles/Vol] 14.2 mmol/L Normal [facility] Comment on above: Performed By: #### C MP, SALYC, ACET #### [facility] [address] [place] [address] Dr. Skylar Ramirez AST [Catalytic activity/Vol] 14 U/L Critically low 15-37 [facility] Comment on above: Performed By: #### C MP, SALYC, ACET #### [facility] [address] [place] [address] Dr. Skylar Ramirez Bilirubin [Mass/Vol] 0.6 mg/dL Normal 0.2-1.0 [facility] Comment on above: Performed By: #### C MP, SALYC, ACET #### [facility] [address] [place] [address] Dr. kSylar Ramirez Calcium [Mass/Vol] 9.1 mg/dL Normal 8.5-10.1 [facility] Comment on above: Performed By: #### C MP, SALYC, ACET #### [facility] [address] [place] [address] Dr. Skylar Ramirez Chloride [Moles/Vol] 106 mmol/L Normal 98-107 [facility] Comment on above: Performed By: #### C MP, SALYC, ACET #### [facility] [address] [place] [address] Dr. Skylar Ramirez CO2 [Moles/Vol] 26.0 mmol/L Normal 21.0-32.0 [facility] Comment on above: Performed By: #### C SERINA GUPTA, ACET #### [facility] [address] [address] [address] Skylar Ramirez Creatinine [Mass/Vol] 0.78 mg/dL Normal 0.55-1.02 [facility] Comment on above: Performed By: #### C ENZO GUPTAYC, ACET #### [facility] [address] [address] [address] Skylar Ramirez EGFR-AF [facility] LUCIAN >60 Normal >=60 [facility] Comment on above: Performed By: #### C SERINA GUPTA, ACET #### [facility] [address] [address] [address] Skylar Ramirez EGFR-NON AF [facility] LUCIAN >60 Normal >=60 [facility] Comment on above: Performed By: #### C SERINA GUPTA, ACET #### [facility] [address] [address] [address] Skylar Ramirez Globulin (S) [Mass/Vol] 3.0 g/dL Normal [facility] Comment on above: Performed By: #### C SERINA GUPTA, ACET #### [facility] [address] [address] [address] Skylar Ramirez Glucose [Mass/Vol] 129 mg/dL Critically high 74-106 [facility] Comment on above: Performed By: #### C SERINA GUPTA, ACET #### [facility] [address] [address] [address] Skylar Ramirez Potassium [Moles/Vol] 3.2 mmol/L Critically low 3.5-5.1 [facility] Comment on above: Performed By: #### C SERINA GUPTA, ACET #### [facility] [address] [address] [address] Skylar Ramirez Protein [Mass/Vol] 7.4 g/dL Normal 6.4-8.2 [facility] Comment on above: Performed By: #### C SERINA GUPTA, ACET #### [facility] [address] [place], [place] [address] Dr. Skylar Ramirez Sodium [Moles/Vol] 143 mmol/L Normal 136-145 [facility] Comment on above: Performed By: #### C ENZO GUPTAYC, ACET #### [facility] [address] [place], [place] [address] Dr. Skylar Ramirez Urea nitrogen [Mass/Vol] 6.0 mg/dL Critically low 6.4-19.3 [facility] Comment on above: Performed By: #### C CANDY SALYC, ACET #### [facility] [address] [address] [address] Skylar Ramirez Urea nitrogen/Creatinine [Mass ratio] 7.7 mg/mg Normal [facility] Comment on above: Performed By: #### C CANDY SALYC, ACET #### [facility] [address] [address] [address] Skylar Ramirez SALICYLATEon 07-09-2022 SALICYLATE <2.8 Normal <=19.9 [facility] Comment on above: Performed By: #### C ENZO GUPTAYC, ACET #### [facility] [address] [address] [address] Skylar Ramirez XR HAND RT MIN [...] JJ SILVA Date: 2022-07-09 18:12 Normal [facility] MICRO OTHER TESTSOrdered By: Jose Clay [...] for this test is supported by the [place] of Health and Human Service's (HHS's) declaration [...] #### E TH #### [facility] [address] [place] [address] Dr. Skylar Ramirez Covid-19 PCR (CVDTB)on SARS-CoV-2 (COVID-19) RNA ANUP+probe Ql (Unsp spec) [...] for this test is supported by the [place] of Health and Human Service's (HHS's) declaration [...] consistent with SARS-CoV-2. Performed By: #### [facility] #### [facility] [address] [place] [address] Dr. Skylar Ramirez CBC AUTO DIFFon 08-17-2021 BASO # 0.1 103/ul Normal 0.0-0.1 [facility] Comment on above: Performed By: #### E TH #### [facility] [address] [place] [address] Dr. Skylar Ramirez Basophils/100 WBC (Bld) 0.6 % Normal 0.2-2.0 [facility] Comment on above: Performed By: #### E TH #### [facility] [address] [place] [address] Dr. Skylar Ramirez EO # 0.2 103/ul Normal 0.0-0.7 [facility] Comment on above: Performed By: #### E TH #### [facility] [address] [place] [address] Dr. Skylar Ramirez Eosinophils/100 WBC (Bld) 2.0 % Normal 0.9-7.0 [facility] Comment on above: Performed By: #### E TH #### [facility] [address] [place] [address] Dr. Skylar Ramirez Erythrocyte distribution width (RBC) [Ratio] 13.2 % Normal 11.0-15.0 [facility] Comment on above: Performed By: #### E #### [facility] [address] [place] [address] Dr. Skylar Ramirez Hematocrit (Bld) [Volume fraction] 38.4 % Normal 36.0-48.0 [facility] Comment on above: Performed By: #### E #### [facility] [address] [place] [address] Dr. Skylar Ramirez Hemoglobin (Bld) [Mass/Vol] 13.1 g/dL Normal 12.0-16.0 [facility] Comment on above: Performed By: #### E #### [facility] [address] [place] [address] Dr. Skylar Ramirez IG # 0.02 10e3/ul Normal 0.00-0.03 [facility] Comment on above: Performed By: #### E #### [facility] [address] [place] [address] Dr. Skylar Ramirez IG % 0.2 % Normal 0.0-0.5 [facility] Comment on above: Performed By: #### E #### [facility] [address] [place] [address] Dr. Skylar Ramirez LYMPH # 3.0 103/ul Normal 1.2-3.8 [facility] Comment on above: Performed By: #### E #### [facility] [address] [place] [address] Dr. Skylar Ramirez Lymphocytes/100 WBC (Bld) 31.8 % Normal 20.5-60.0 [facility] Comment on above: Performed By: #### E #### [facility] [address] [place] [address] Dr. Skylar Ramirez MANUAL DIFF REQ NO Normal [facility] Comment on above: Performed By: #### E TH #### [facility] [address] [place] [address] Dr. Skylar Ramirez MCH (RBC) [Entitic mass] 32.0 pg Normal 26.7-34.0 [facility] Comment on above: Performed By: #### E TH #### [facility] [address] [address] [address] Skylar Ramirez MCHC (RBC) [Mass/Vol] 34.1 g/dL Normal 29.9-35.2 [facility] Comment on above: Performed By: #### E TH #### [facility] [address] [place] [address] Dr. Syklar Ramirez MCV (RBC) [Entitic vol] 93.7 fL Normal 81.0-99.0 [facility] Comment on above: Performed By: #### E #### [facility] [address] [place] [address] Dr. Skylar Ramirez MONO # 0.7 103/ul Normal 0.3-0.8 [facility] Comment on above: Performed By: #### E #### [facility] [address] [place] [address] Dr. Skylar Ramirez Monocytes/100 WBC (Bld) 7.6 % Normal 1.7-12.0 [facility] Comment on above: Performed By: #### E #### [facility] [address] [place] [address] Dr. Skylar Ramirez NEUT # 5.4 103/ul Normal 1.4-6.5 [facility] Comment on above: Performed By: #### E #### [facility] [address] [place] [address] Dr. Skylar Ramirez Neutrophils/100 WBC (Bld) 57.8 % Normal 43.0-75.0 [facility] Comment on above: Performed By: #### E #### [facility] [address] [place] [address] Dr. Skylar Ramirez Platelet mean volume (Bld) [Entitic vol] 10.9 fL Normal 9.5-13.5 [facility] Comment on above: Performed By: #### E #### [facility] [address] [place] [address] Dr. Skylar Ramirez PLT 275 103/ul Normal 150-450 [facility] Comment on above: Performed By: #### E TH #### [facility] [address] [place] [address] Dr. Skylar Ramirez RBC 4.10 106/ul Critically low 4.20-5.40 [facility] Comment on above: Performed By: #### E TH #### [facility] [address] [place] [address] Dr. Skylar Ramirez WBC 9.3 103/ul Normal 4.0-11.0 [facility] Comment on above: Performed By: #### E TH #### [facility] [address] [place] [address] Dr. Skylar Ramirez FREE T3on 08-17-2021 FREE T3 2.08 pg/mlL Critically low 2.91-4.70 [facility] Comment on above: Performed By: #### E TH #### [facility] [address] [place] [address] Dr. Skylar Ramirez FREE T4on 08-17-2021 Free T4 [Mass/Vol] 0.93 ng/dL Normal 0.78-1.34 [facility] Comment on above: Performed By: #### E #### [facility] [address] [place] [address] Dr. Skylar Ramirez PROF 14(COMP METB)on 022 Albumin [Mass/Vol] 4.4 g/dL Normal 3.4-5.0 [facility] Comment on above: Performed By: #### E TH #### [facility] [address] [place] [address] Dr. Skylar Ramirez Albumin/Globulin [Mass ratio] 1.6 {ratio} Normal [facility] Comment on above: Performed By: #### E TH #### [facility] [address] [place] [address] Dr. Skylar Ramirez ALP [Catalytic activity/Vol] 45 U/L Critically low 46-116 [facility] Comment on above: Performed By: #### E TH #### [facility] [address] [place] [address] Dr. Skylar Ramirez ALT [Catalytic activity/Vol] 14 U/L Normal 14-59 [facility] Comment on above: Performed By: #### E #### [facility] [address] [address] [address] Skylar Ramirez Anion gap [Moles/Vol] 13.7 mmol/L Normal [facility] Comment on above: Performed By: #### E #### [facility] [address] [address] [address] Skylar Ramirez AST [Catalytic activity/Vol] 8 U/L Critically low 15-37 [facility] Comment on above: Performed By: #### E #### [facility] [address] [address] [address] Skylar Ramirez Bilirubin [Mass/Vol] 1.2 mg/dL Critically high 0.2-1.0 [facility] Comment on above: Performed By: #### E #### [facility] [address] [place] [address] Dr. Skylar Ramirez Calcium [Mass/Vol] 8.7 mg/dL Normal 8.5-10.1 [facility] Comment on above: Performed By: #### E #### [facility] [address] [place] [address] Dr. Skylar Ramirez Chloride [Moles/Vol] 104 mmol/L Normal 98-107 [facility] Comment on above: Performed By: #### E #### [facility] [address] [place] [address] Dr. Skylar Ramirez CO2 [Moles/Vol] 26.7 mmol/L Normal 21.0-32.0 [facility] Comment on above: Performed By: #### E #### [facility] [address] [place] [address] Dr. Skylar Ramirez Creatinine [Mass/Vol] 0.83 mg/dL Normal 0.55-1.02 [facility] Comment on above: Performed By: #### E #### [facility] [address] [place] [address] Dr. Skylar Ramirez EGFR-AF [facility] >60 Normal >=60 [facility] Comment on above: Performed By: #### E #### [facility] [address] [place] [address] Dr. Skylar Ramirez EGFR-NON AF [facility] >60 Normal >=60 [facility] Comment on above: Performed By: #### E TH #### [facility] [address] [place] [address] Dr. Skylar Ramirez Globulin (S) [Mass/Vol] 2.8 g/dL Normal [facility] Comment on above: Performed By: #### E TH #### [facility] [address] [place] [address] Dr. Skylar Ramirez Glucose [Mass/Vol] 111 mg/dL Critically high 74-106 [facility] Comment on above: Performed By: #### E TH #### [facility] [address] [place] [address] Dr. Skylar Ramirez Potassium [Moles/Vol] 3.4 mmol/L Critically low 3.5-5.1 [facility] Comment on above: Performed By: #### E TH #### [facility] [address] [place] [address] Dr. Skylar Ramirez Protein [Mass/Vol] 7.2 g/dL Normal 6.1-8.2 [facility] Comment on above: Performed By: #### E TH #### [facility] [address] [place] [address] Dr. Skylar Ramirez Sodium [Moles/Vol] 141 mmol/L Normal 136-145 [facility] Comment on above: Performed By: #### E TH #### [facility] [address] [place] [address] Dr. Skylar Ramirez Urea nitrogen [Mass/Vol] 10.0 mg/dL Normal 6.4-19.3 [facility] Comment on above: Performed By: #### E TH #### [facility] [address] [place] [address] Dr. Skylar Ramirez Urea nitrogen/Creatinine [Mass ratio] 12.0 mg/mg Normal [facility] Comment on above: Performed By: #### E TH #### [facility] [address] [place] [address] Dr. Skylar Ramirez TSHon 08-17-2021 TSH 0.755 uIU/mL Normal 0.430-3.75 0 [facility] Comment on above: Performed By: #### E TH #### [facility] [id number] Skylar Ramirez TSH RANGE SEE BELOW Normal [facility] Comment on above: Result Comment: <0.3 4 UIU/ml HYPERTHYROID 0.34-5.60 UIU/ml EUTHYROID >5.60 UIU/ml HYPOTHYROID Performed By: #### E TH #### [facility] [address] [place], [place] [address] Dr. Skylar Ramirez Vital Signs Date Time Vital Sign Value Performing Clinician Facility 06-24-2024 14:13-0400 Body weight 81.65 kg Iveth Pemberton DO Work Phone: [facility] 06-24-2024 14:13-0400 Diastolic blood pressure 80 mm[Hg] Iveth Pemberton DO Work Phone: [facility] 06-24-2024 14:13-0400 Systolic blood pressure 130 mm[Hg] Iveth Pemberton DO Work Phone: [facility] 06-19-2024 17:07-0500 Body temperature 98.3 [degF] Rodolfo Anthony MD Work Phone: [facility] 06-19-2024 17:07-0500 Diastolic blood pressure 69 mm[Hg] Rodolfo Anthony MD Work Phone: [facility] 06-19-2024 17:07-0500 Heart rate 107 /min Rodolfo Anthony MD Work Phone: [facility] 06-19-2024 17:07-0500 Respiratory rate 18 /min Rodolfo Anthony MD Work Phone: [facility] 06-19-2024 17:07-0500 SaO2% (BldA) [Mass fraction] 97 % Rodolfo Anthony MD Work Phone: [facility] 06-19-2024 17:07-0500 Systolic blood pressure 115 mm[Hg] Rodolfo Anthony MD Work Phone: [facility] 06-10-2024 13:08-0500 Body weight 79.38 kg Iveth Rinkes DO Work Phone: [facility] 06-10-2024 13:08-0500 Diastolic blood pressure 72 mm[Hg] Iveth Rinkes DO Work Phone: [facility] 06-10-2024 13:08-0500 Systolic blood pressure 126 mm[Hg] Iveth Rinkes DO Work Phone: [facility] 05-23-2024 08:53-0500 Body weight 78.93 kg Iveth Rinkes DO Work Phone: [facility] 05-23-2024 08:53-0500 Diastolic blood pressure 80 mm[Hg] Iveth Rinkes DO Work Phone: [facility] 05-23-2024 08:53-0500 Systolic blood pressure 120 mm[Hg] Iveth Rinkes DO Work Phone: [facility] 05-22-2024 10:32-0500 Body height 162.56 cm Rodolfo Anthony MD Work Phone: [facility] 05-22-2024 10:32-0500 Body mass index (BMI) [Ratio] 30.2 kg/m2 Rodolfo Anthony MD Work Phone: [facility] 05-22-2024 10:32-0500 Body weight 79.83 kg Rodolfo Anthony MD Work Phone: [facility] 05-22-2024 10:32-0500 Diastolic blood pressure 68 mm[Hg] Rodolfo Anthony MD Work Phone: [facility] 05-22-2024 10:32-0500 Heart rate 99 /min Rodolfo Anthony MD Work Phone: [facility] 05-22-2024 10:32-0500 Respiratory rate 18 /min Rodolfo Anthony MD Work Phone: [facility] 05-22-2024 10:32-0500 SaO2% (BldA) [Mass fraction] 98 % Rodolfo Anthony MD Work Phone: [facility] 05-22-2024 10:32-0500 Systolic blood pressure 108 mm[Hg] Rodolfo Anthony MD Work Phone: [facility] 05-05-2024 13:13-0500 Diastolic blood pressure 62 mm[Hg] Rodolfo Anthony MD Work Phone: [facility] 05-05-2024 13:13-0500 Heart rate 80 /min Rodolfo Anthony MD Work Phone: [facility] 05-05-2024 13:13-0500 Respiratory rate 18 /min Rodolfo Anthony MD Work Phone: [facility] 05-05-2024 13:13-0500 SaO2% (BldA) [Mass fraction] 100 % Rodolfo Anthony MD Work Phone: [facility] 05-05-2024 13:13-0500 Systolic blood pressure 110 mm[Hg] Rodolfo Anthony MD Work Phone: [facility] 05-05-2024 11:24-0500 Body height 162.56 cm Rodolfo Anthony MD Work Phone: [facility] 05-05-2024 11:24-0500 Body temperature 98.1 [degF] Rodolfo Anthony MD Work Phone: [facility] 05-05-2024 11:24-0500 Body weight 80.4 kg Rodolfo Anthony MD Work Phone: [facility] 04-27-2024 12:03-0500 Body height 165.1 cm Rodolfo Anthony MD Work Phone: [facility] 04-27-2024 12:03-0500 Body temperature 98.3 [degF] Rodolfo Anthony MD Work Phone: [facility] 04-27-2024 12:03-0500 Body weight 76.35 kg Rodolfo Anthony MD Work Phone: [facility] 04-27-2024 12:03-0500 Diastolic blood pressure 75 mm[Hg] Rodolfo Anthony MD Work Phone: [facility] 04-27-2024 12:03-0500 Heart rate 104 /min Rodolfo Anthony MD Work Phone: [facility] 04-27-2024 12:03-0500 Respiratory rate 18 /min Rodolfo Anthony MD Work Phone: [facility] 04-27-2024 12:03-0500 SaO2% (BldA) [Mass fraction] 97 % Rodolfo Anthony MD Work Phone: [facility] 04-27-2024 12:03-0500 Systolic blood pressure 125 mm[Hg] Rodolfo Anthony MD Work Phone: [facility] 04-25-2024 11:23-0500 Body weight 78.47 kg Iveth Rinkes DO Work Phone: [facility] 04-25-2024 11:23-0500 Diastolic blood pressure 70 mm[Hg] Iveth Rinkes DO Work Phone: [facility] 04-25-2024 11:23-0500 Systolic blood pressure 120 mm[Hg] Iveth Rinkes DO Work Phone: [facility] 03-28-2024 10:04-0500 Body weight 73.03 kg Iveth Rinkes DO Work Phone: [facility] 03-28-2024 10:04-0500 Diastolic blood pressure 80 mm[Hg] Iveth Rinkes DO Work Phone: [facility] 03-28-2024 10:04-0500 Systolic blood pressure 120 mm[Hg] Iveth Rinkes DO Work Phone: [facility] 02-29-2024 10:29-0500 Body weight 78.47 kg Iveth Rinkes DO Work Phone: [facility] 02-29-2024 10:29-0500 Diastolic blood pressure 80 mm[Hg] Iveth Rinkes DO Work Phone: [facility] 02-29-2024 10:29-0500 Systolic blood pressure 118 mm[Hg] Iveth Rinkes DO Work Phone: [facility] 12-03-2023 16:00-0400 Diastolic blood pressure 59 mm[Hg] PA-C Aldair Sandra Work Phone: [facility] 12-03-2023 16:00-0400 Heart rate 66 /min PA-C Aldair Sandra Work Phone: [facility] 12-03-2023 16:00-0400 Respiratory rate 18 /min PA-C Aldair Sandra Work Phone: [facility] 12-03-2023 16:00-0400 SaO2% (BldA) [Mass fraction] 100 % PA-C Aldair Sandra Work Phone: [facility] 12-03-2023 16:00-0400 Systolic blood pressure 108 mm[Hg] PA-C Aldair Sandra Work Phone: [facility] 12-03-2023 12:49-0400 Body height 162.56 cm PA-C Aldair Sandra Work Phone: [facility] 12-03-2023 12:49-0400 Body temperature 98 [degF] PA-C Aldair Sandra Work Phone: [facility] 12-03-2023 12:49-0400 Body weight 83.46 kg PA-C Aldair Sandra Work Phone: [facility] 09-30-2023 22:58-0400 Diastolic blood pressure 73 mm[Hg] ALLI MACK [facility] 09-30-2023 22:58-0400 Heart rate 75 /min ALLI MACK [facility] 09-30-2023 22:58-0400 Mean blood pressure 83 mm[Hg] ALLI CINDI [facility] 09-30-2023 22:58-0400 Respiratory rate 18 /min ALLI CINDI [facility] 09-30-2023 22:58-0400 SaO2% (BldA) [Mass fraction] 99 % ALLI CINDI [facility] 09-30-2023 22:58-0400 Systolic blood pressure 102 mm[Hg] ALLI CINDI [facility] 09-30-2023 21:50-0400 Diastolic blood pressure 73 mm[Hg] ALLI CINDI [facility] 09-30-2023 21:50-0400 Heart rate 82 /min ALLI CINDI [facility] 09-30-2023 21:50-0400 Mean blood pressure 83 mm[Hg] ALLI CINDI [facility] 09-30-2023 21:50-0400 Respiratory rate 18 /min ALLI CINDI [facility] 09-30-2023 21:50-0400 SaO2% (BldA) [Mass fraction] 97 % ALLI CINDI [facility] 09-30-2023 21:50-0400 Systolic blood pressure 104 mm[Hg] ALLI CINDI [facility] 09-30-2023 20:53-0400 Diastolic blood pressure 83 mm[Hg] ALLI CINDI [facility] 09-30-2023 20:53-0400 Heart rate 85 /min ALLI CINDI [facility] 09-30-2023 20:53-0400 Mean blood pressure 90 mm[Hg] ALLI CINDI [facility] 09-30-2023 20:53-0400 Respiratory rate 18 /min ALLI REYESANN [facility] 09-30-2023 20:53-0400 SaO2% (BldA) [Mass fraction] 98 % ALLI REYESANN [facility] 09-30-2023 20:53-0400 Systolic blood pressure 105 mm[Hg] ALLI CINDI [facility] 09-30-2023 19:41-0400 Body temperature 98.42 [degF] ALLI MACK [facility] 09-30-2023 19:41-0400 Heart rate 88 /min ALLI REYESANN [facility] 08-27-2023 09:30-0400 Heart rate 63 /min Edi Ishmael [facility] 08-27-2023 09:30-0400 Respiratory rate 16 /min Edi Ishmael [facility] 08-27-2023 09:30-0400 SaO2% (BldA) [Mass fraction] 100 % Edi Ishmael [facility] 08-27-2023 09:00-0400 Diastolic blood pressure 53 mm[Hg] Edi Ishmael [facility] 08-27-2023 09:00-0400 Heart rate 58 /min Edi Ishmael [facility] 08-27-2023 09:00-0400 Mean blood pressure 74 mm[Hg] Edi Ishmael [facility] 08-27-2023 09:00-0400 SaO2% (BldA) [Mass fraction] 98 % Edi Ishmael [facility] 08-27-2023 09:00-0400 Systolic blood pressure 115 mm[Hg] Edi Ishmael [facility] 08-27-2023 08:00-0400 Diastolic blood pressure 68 mm[Hg] Edi Ishmael [facility] 08-27-2023 08:00-0400 Heart rate 70 /min Edi Ishmael [facility] 08-27-2023 08:00-0400 Mean blood pressure 86 mm[Hg] Edi Ishmael [facility] 08-27-2023 08:00-0400 Systolic blood pressure 122 mm[Hg] Edi Ishmael [facility] 08-27-2023 07:30-0400 Diastolic blood pressure 66 mm[Hg] Edi Ishmael [facility] 08-27-2023 07:30-0400 Mean blood pressure 84 mm[Hg] Edi Ishmael [facility] 08-27-2023 07:30-0400 Systolic blood pressure 120 mm[Hg] Edi Ishmael [facility] 08-27-2023 06:54-0400 Body temperature 98.42 [degF] Edi Ishmael [facility] 08-27-2023 06:54-0400 Heart rate 71 /min Edi Ishmael [facility] 08-27-2023 06:54-0400 Respiratory rate 18 /min Edi Ishmael [facility] 08-15-2023 10:16-0400 Body temperature 98.24 [degF] Refugio Barriga [facility] 08-15-2023 10:16-0400 Diastolic blood pressure 72 mm[Hg] Refugio Barriga [facility] 08-15-2023 10:16-0400 Heart rate 88 /min Refugio Barriga [facility] 08-15-2023 10:16-0400 Systolic blood pressure 107 mm[Hg] Refugio Barriga [facility] 08-11-2023 03:34-0400 Diastolic blood pressure 60 mm[Hg] Jessi Avina MD Work Phone: [facility] 08-11-2023 03:34-0400 Heart rate 90 /min Jessi Avina MD Work Phone: [facility] 08-11-2023 03:34-0400 Respiratory rate 18 /min [facility] 03:34-0400 SaO2% (BldA) [Mass fraction] 100 % [facility] 08-11-2023 03:34-0400 Systolic blood pressure 123 mm[Hg] Jessi Avina MD Work Phone: [facility] 08-10-2023 21:17-0400 Body temperature 99 [degF] Jessi Avina MD Work Phone: [facility] 08-03-2023 21:54-0400 Body temperature 97.9 [degF] DO Kim Slack Work Phone: [facility] 08-03-2023 21:54-0400 Diastolic blood pressure 64 mm[Hg] DO Kim Slack Work Phone: [facility] 08-03-2023 21:54-0400 Heart rate 72 /min DO Kim Slack Work Phone: [facility] 08-03-2023 21:54-0400 Respiratory rate 18 /min DO Kmi Slack Work Phone: [facility] 08-03-2023 21:54-0400 SaO2% (BldA) [Mass fraction] 100 % DO Kim Gomes Work Phone: [facility] 08-03-2023 21:54-0400 Systolic blood pressure 114 mm[Hg] DO Kim Gomes Work Phone: [facility] 08-03-2023 20:12-0400 Body height 165.1 cm DO Kim Gomes Work Phone: [facility] 08-03-2023 20:12-0400 Body weight 93.7 kg DO Kim Gomes Work Phone: [facility] 07-12-2022 07:30-0400 Body temperature 97.7 [degF] MD Brionna See Work Phone: [facility] 07-12-2022 07:30-0400 Diastolic blood pressure 67 mm[Hg] MD Brionna See Work Phone: [facility] 07-12-2022 07:30-0400 Heart rate 63 /min MD Brionna See Work Phone: [facility] 07-12-2022 07:30-0400 SaO2% (BldA) [Mass fraction] 98 % MD Brionna See Work Phone: [facility] 07-12-2022 07:30-0400 Systolic blood pressure 119 mm[Hg] MD Brionna See Work Phone: [facility] 07-11-2022 20:12-0400 Respiratory rate 16 /min MD Brionna See Work Phone: [facility] 07-11-2022 15:25-0400 Body height 162.56 cm MD Brionna See Work Phone: [facility] 07-10-2022 09:00-0400 Body weight 80.28 kg MD Brionna See Work Phone: [facility] 04-11-2022 12:01-0500 Body temperature 98.42 [degF] Nevaeh Leahy [facility] 04-11-2022 12:01-0500 bodymassindex 1.18 Nevaeh Leahy [facility] Comment on above: Result Comment: ^~:![facility] 04-11-2022 12:01-0500 Diastolic blood pressure 87 mm[Hg] Nevaeh Leahy [facility] 04-11-2022 12:01-0500 Heart rate 90 /min Nevaeh Cantue [facility] 04-11-2022 12:01-0500 Height/Length Percentile 76.91 Nevaeh Cantue [facility] Comment on above: Result Comment: ^~:!Percentile Source -[facility] 04-11-2022 12:01-0500 Height/Length Z-Score 0.74 Nevaeh Leahy [facility] Comment on above: Result Comment: ^~:![facility] 04-11-2022 12:01-0500 Respiratory rate 20 /min Nevaeh Leahy [facility] 04-11-2022 12:01-0500 SaO2% (BldA) [Mass fraction] 100 % Nevaeh Leahy [facility] 04-11-2022 12:01-0500 Systolic blood pressure 137 mm[Hg] Nevaeh Leahy [facility] 04-11-2022 12:01-0500 weight 1.38 Nevaeh Leahy [facility] Comment on above: Result Comment: ^~:![facility] 04-11-2022 12:01-0500 Weight Percentile 91.69 % Nevaeh Leahy [facility] Comment on above: Result Comment: ^~:!Percentile Source -C DC 03-23-2022 01:05-0500 Body temperature 98.06 [degF] Kaylinn Dokken [facility] 03-23-2022 01:05-0500 bodymassindex 1.47 Kaylinn Dokken [facility] Comment on above: Result Comment: ^~:![facility] 03-23-2022 01:05-0500 Diastolic blood pressure 79 mm[Hg] Kaylinn Dokken [facility] 03-23-2022 01:05-0500 Heart rate 83 /min Kaylinn Dokken [facility] 03-23-2022 01:05-0500 Height/Length Percentile 42.45 Kaylinn Dokken [facility] Comment on above: Result Comment: ^~:![facility] 03-23-2022 01:05-0500 Height/Length Z-Score -0.19 Kaylinn Dokken [facility] Comment on above: Result Comment: ^~:![facility] 03-23-2022 01:05-0500 Respiratory rate 16 /min Kaylinn Dokken [facility] 03-23-2022 01:05-0500 SaO2% (BldA) [Mass fraction] 99 % Kaylinn Dokken [facility] 03-23-2022 01:05-0500 Systolic blood pressure 117 mm[Hg] Kaylinn Dokken [facility] 03-23-2022 01:05-0500 weight 1.42 Kaylinn Dokken [facility] Comment on above: Result Comment: ^~:![facility] 03-23-2022 01:05-0500 Weight Percentile 92.21 % Kaylinn Dokken [facility] Comment on above: Result Comment: ^~:!Percentile Source -C DC Encounters Encounter Date Encounter Type Care Provider Facility Start: 07-08-2024 End: 07-08-2024 ambulatory IVETH E RINKES Not Available Start: 06-24-2024 End: 06-24-2024 Bamboo flowsheet Iveth E Rinkes DO Work Phone: [facility] Start: 06-24-2024 End: 06-24-2024 Bamboo flowsheet Iveth E Rinkes DO Work Phone: [facility] Start: 06-24-2024 End: 06-24-2024 Office outpatient visit 15 minutes Iveth E Rinkes DO Work Phone: [facility] Comment on above: 29 weeks gestation o f Start: 06-24-2024 End: 06-24-2024 ambulatory IVETH E RINKES Not Available Start: 06-20-2024 End: 06-20-2024 ambulatory ROCAEL MAKC Facility:[facility] Start: 06-19-2024 End: 06-19-2024 Patient encounter procedure Rodolfo Anthony MD Work Phone: [facility] Labor - O/P Start: 06-19-2024 End: 06-19-2024 ambulatory Rodolfo Anthony MD Work Phone: [facility] Work Phone: Start: 06-10-2024 End: 06-10-2024 Office outpatient visit 15 minutes Iveth E Rinkes DO Work Phone: [facility] Comment on above: 27 weeks gestation o f Start: 06-10-2024 End: 06-10-2024 ambulatory IVETH E RINKES Not Available Start: 05-23-2024 End: 05-23-2024 Office outpatient visit 15 minutes Iveth E Rinkes DO Work Phone: [facility] Comment on above: 24 weeks gestation o f ; Screening for diabetes mellitus (DM) Start: 05-23-2024 End: 05-23-2024 ambulatory IVETH PEMBERTON Not Available Start: 05-22-2024 End: 05-22-2024 ambulatory Rodolfo Anthony MD Work Phone: [facility] Work Phone: Start: 05-22-2024 End: 05-22-2024 Patient encounter procedure Rodolfo Anthony MD Work Phone: [facility] Work Phone: Start: 05-14-2024 End: 05-14-2024 Patient encounter procedure Rodolfo Anthony MD Work Phone: [facility]-Electrodiagnostics Work Phone: Start: 05-14-2024 End: 05-14-2024 ambulatory Rodolfo Anthony MD Work Phone: [facility] Work Phone: Start: 05-05-2024 End: 05-05-2024 Emergency department patient visit Rodolfo Anthony MD Work Phone: [facility]-Emergency Room Work Phone: Start: 04-27-2024 End: 04-27-2024 Emergency department patient visit Rodolfo Anthony MD Work Phone: [facility]Emergency [facility] Work Phone: Start: 04-25-2024 End: 04-25-2024 Office outpatient visit 15 minutes Iveth Pemberton DO Work Phone: [facility] Comment on above: 20 weeks gestation o f Start: 04-25-2024 End: 04-25-2024 ambulatory IVETH PEMBERTON Not Available Start: 04-20-2024 Non-patient / Non-visit Rodolfo Anthony MD Work Phone: [facility] ER Work Phone: Start: 03-28-2024 End: 03-28-2024 Bamboo flowsheet Iveth E Rinkes DO Work Phone: [facility] Start: 03-28-2024 End: 03-28-2024 Bamboo flowsheet Iveth E Rinkes DO Work Phone: [facility] Start: 03-28-2024 End: 03-28-2024 Office outpatient visit 15 minutes Iveth E Rinkes DO Work Phone: [facility] Comment on above: 16 weeks gestation o f (Primary Dx); Nausea and vomiting in Start: 03-28-2024 End: 03-28-2024 ambulatory IVETH E RINKES Not Available Start: 02-29-2024 End: 02-29-2024 Bamboo flowsheet Iveth E Rinkes DO Work Phone: [facility] Start: 02-29-2024 End: 02-29-2024 Bamboo flowsheet Iveth E Rinkes DO Work Phone: [facility] Start: 02-29-2024 End: 02-29-2024 Office outpatient visit 25 minutes Iveth E Rinkes DO Work Phone: [facility] Comment on above: GA: 12w6d Start: 02-29-2024 End: 02-29-2024 ambulatory IVETH E RINKES Not Available Start: 02-20-2024 End: 02-20-2024 ambulatory ADJUNCT FACULTY INSTRUCTOR ALLI A CINDI Facility:[facility] Start: 01-29-2024 End: 01-29-2024 ambulatory IVETH RINKES Not Available Start: 01-24-2024 End: 01-24-2024 flow sheet [facility] Ob Nurse [facility] Comment on above: GA: 7w5d Start: 01-24-2024 End: 01-24-2024 ambulatory IVETH RINKES Not Available Start: 12-24-2023 End: 12-24-2023 ambulatory ADJUNCT FACULTY INSTRUCTOR ALLI A CINDI Facility:[facility] Start: 12-03-2023 End: 12-03-2023 Emergency department patient visit CHRIS Sandra Work Phone: [facility]-Emergency Room Work Phone: Start: 09-30-2023 End: 09-30-2023 Emergency department patient visit DO Dino Mccollum [facility] Start: 09-17-2023 End: 09-17-2023 ambulatory IVETH PEMBERTON Not Available Start: 09-13-2023 End: 09-13-2023 ambulatory BAIRON FULLER Not Available Start: 08-29-2023 End: 08-29-2023 ambulatory ROCAEL MACK Facility:[facility]gan Start: 08-27-2023 End: 08-27-2023 Emergency department patient visit Edi Quiñones [facility] Start: 08-15-2023 End: 08-15-2023 ambulatory Jewell Driver Facility:[facility] Start: 08-15-2023 End: 08-15-2023 Patient encounter procedure Refugio Barriga [facility] Start: 08-14-2023 Telephone encounter [facility] Start: 08-13-2023 End: 08-13-2023 ambulatory ADJUNCT FACULTY INSTRUCTOR ALLI Leah MESSERCINDI Facility:[facility] Start: 08-11-2023 End: 08-11-2023 Emergency department patient visit UNKNOWN PROVIDER Facility:[facility] Start: 08-11-2023 End: 08-11-2023 Emergency department patient visit Jessi Avina MD Work Phone: [facility] Emergency Medicine Comment on above: Abdominal pain (Pt h ad abd sx 1 week ago and states she is now having sharp pains near the site with lots of swelling and some redness. Pt had sx here. ) Start: 08-09-2023 ambulatory Iona Hidalgo RN [facility] Line Comment on above: Post-op Symptoms Start: 08-09-2023 End: 08-09-2023 Emergency department patient visit DO Kim Gomes Work Phone: [facility]Emergency Room Work Phone: Start: 08-04-2023 E.D. Visit Francisco Javiercynthiafede Yosvany LONG [facility] Social Work Comment on above: Trauma/complex Medic al Situation Start: 08-04-2023 End: 08-08-2023 Evaluation and management of inpatient STARR HOOKS Facility:[facility] Start: 08-04-2023 End: 08-04-2023 ambulatory UNKNOWN PROVIDER Facility:[facility] Start: 08-03-2023 End: 08-03-2023 Emergency department patient visit DO Kim Gomes Work Phone: [facility]Emergency Room Work Phone: Start: 06-20-2023 End: 06-20-2023 ambulatory ROCAEL MACK Facility:[facility] Start: 05-23-2023 End: 05-23-2023 ambulatory ROCAEL MACK Facility:[facility] Start: 05-18-2023 ambulatory Edi Ishmael Facility:[facility] Start: 08-03-2022 End: 08-11-2022 Pre-admission assessment Dunia Cristina [facility] Start: 07-20-2022 End: 07-20-2022 Patient encounter procedure Dunia Cristina [facility] Start: 07-19-2022 End: 07-19-2022 Lab Drop off Dunia Cristina [facility] Start: 07-09-2022 End: 07-12-2022 Evaluation and management of inpatient MD Brionna See Work Phone: [facility] [place] [address] Work Phone: Start: 07-09-2022 End: 07-10-[address] BRIONNA SEE . Facility:[facility] Start: 04-11-2022 End: 04-11-2022 Emergency department patient visit Nevaeh Leahy [facility] Start: 03-23-2022 End: 03-23-2022 Emergency department patient visit Dino Mccollum [facility] Start: 02-28-2022 End: 02-28-2022 ambulatory Jack Khan Other [facility] [employer] Other Start: 02-28-2022 FQ visit new patient Jack Khan [facility] Start: 02-24-2022 End: 02-24-[address] BRIONNA SEE . Facility: Start: 11-25-2021 End: 11-25-[address] BRIONNA SEE . Facility:[facility] Start: 11-22-2021 End: 11-22-[address] BRIONNA SEE . Facility:[facility] Start: 09-09-2021 End: 09-10-[address] BRIONNA SEE . Facility:[facility] Start: 08-17-2021 End: 08-18-[address] BRIONNA SEE . Facility: Procedures Date Procedure Procedure Detail Performing Clinician Start: 06-24-2024 Urnls dip stick/tabl et rgnt non-auto w/o micrscp Iveth E Rinkes DO Work Phone: Start: 06-10-2024 Urnls dip stick/tabl et rgnt non-auto w/o micrscp Iveth E Rinkes DO Work Phone: Start: 05-23-2024 Urnls dip stick/tabl et rgnt non-auto w/o micrscp Iveth E Rinkes DO Work Phone: Start: 05-05-2024 Plain chest X-ray Erasmo Anthony MD Work Phone: Start: 04-27-2024 Viral nucleic acid assay Rodolfo Anthnoy MD Work Phone: Start: 04-25-2024 Urnls dip stick/tabl et rgnt non-auto w/o micrscp Iveth E Rinkes DO Work Phone: Start: 03-28-2024 Urnls dip stick/tabl et rgnt non-auto w/o micrscp Iveth Bowen Riniqra DO Work Phone: Start: 02-29-2024 Chlamydia culture Janinahl demondn Nilay DO Work Phone: Start: 02-29-2024 Iadna chlamydia trachomatis amplified probe tq Iveth Pemberton DO Work Phone: Start: 02-29-2024 Urnls dip stick/tabl et rgnt non-auto w/o micrscp Iveth E Rinkes DO Work Phone: Start: 12-03-2023 Computed tomography [...] abdomen and pelvis with contrast DO Kim Slack Work Phone: Start: 08-03-2023 CT cervical spine wi thout contrast DO Kim Slack Work Phone: Start: 08-03-2023 CT of head without contrast DO Kim Slack Work Phone: Start: 08-03-2023 CT of thorax with contrast DO Kim Slack Work Phone: Sigmoid colectomy [facility] Plan of Treatment Date Care Activity Detail Author Start: 2053 Shingles (RZV) Vacci ne (1 of 2) Shingles (RZV) Vacc[facility] 2[facility] Start: 02-13-2026 Tetanus vaccination Tetanus (T d or Tdap) Booster [facility] Start: 07-22-2024 End: 07-22-2024 Patient encounter procedure 07/22/2024 1:30 PM EDT Routine [facility] [address] [place] [phone] Iveth Pemberton, DO [address] [place] [address] [facility] Start: 07-22-2024 End: 07-22-2024 Professional / ancillary services management 07/22/2024 12:30 PM EDT Ancillary Procedure [facility] [address] [place] [phone] [facility] Start: 07-08-2024 End: 07-08-2024 Patient encounter procedure 07/08/2024 1:30 PM EDT Routine [facility] [address] [place] [phone] Iveth Pemberton, DO [address] [place] [address] [facility] Start: 06-24-2024 End: 06-24-2024 [facility] Comment on above: 29 weeks gestation o f Start: 06-19-2024 [facility] Start: 06-19-2024 Hospital admission [facility] Start: 06-10-2024 End: 06-10-2024 Patient encounter procedure 06/10/2024 1:15 PM EST Routine [facility] [address] [place] [phone] Iveth Pemberton, DO [address] [place] [address] [facility] Start: 06-10-2024 End: 06-10-2024 Professional / ancillary services management 06/10/2024 12:30 PM EST Ancillary Procedure [facility] [address] [place] [address] [facility] Start: 05-23-2024 End: 05-23-2024 Patient encounter procedure 05/23/2024 10:30 AM EST Routine [facility] [address] [place] [address] Iveth Pemberton, DO [address] [place] [address] [facility] Start: 05-23-2024 End: 05-23-2024 Professional / ancillary services management 05/23/2024 8:00 AM EST Ancillary Procedure [facility] [address] [place] [address] [facility] Start: 04-25-2024 End: 04-25-2024 Patient encounter procedure 04/25/2024 11:00 AM EST Routine [facility] [address] [place] [address] Iveth Pemberton, DO [address] [place] [address] [facility] Start: 04-25-2024 End: 04-25-2024 Professional / ancillary services management 04/25/2024 10:15 AM EST Ancillary Procedure [facility] [address] [place] [phone] [facility] Start: 03-28-2024 End: 03-28-2024 Patient encounter procedure [facility] Comment on above: 16 weeks gestation o f Start: 02-29-2024 End: 02-29-2024 ambulatory 02/29/2024 10:30 AM EST Initial [facility] [address] [place] [phone] Iveth Pemberton, DO [address] [place] [address] [facility] Start: 01-29-2024 End: 01-29-2024 Professional / ancillary services management 01/29/2024 8:45 AM EDT Ancillary Procedure [facility] [address] [place] [address] [facility] Start: 01-24-2024 End: 01-23-2025 Bacteria identified in Urine by Culture Urine culture Microbiology Routine Encounter for supervision of normal first in first trimester Expected: 01/24/2024 (Approximate), Expires: 01/23/2025 [facility] Comment on above: Expected: 01/24/2024 (Approximate), Expires: 01/23/2025 Start: 01-24-2024 End: 01-23-2025 Blood type and Indirect antibody screen panel - Blood Type and screen Lab Routine Encounter for supervision of normal first in first trimester Expected: 01/24/2024 (Approximate), Expires: 01/23/2025 [facility] Comment on above: Expected: 01/24/2024 (Approximate), Expires: 01/23/2025 Start: 01-24-2024 End: 01-23-2025 CBC W Auto Differential panel - Blood CBC and differential Lab Routine Encounter for supervision of normal first in first trimester Expected: 01/24/2024 (Approximate), Expires: 01/23/2025 [facility] Comment on above: Expected: 01/24/2024 (Approximate), Expires: 01/23/2025 Start: 01-24-2024 End: 01-23-2025 Drugs of abuse panel - Urine by Screen method Rapid drug screen, urine Lab Routine Encounter for supervision of normal first in first trimester Encounter for drug screening Expected: 01/24/2024 (Approximate), Expires: 01/23/2025 [facility] Comment on above: Expected: 01/24/2024 (Approximate), Expires: 01/23/2025 Start: 01-24-2024 End: 01-23-2025 Hepatitis B virus surface Ag [Presence] in Serum or Plasma by Immunoassay Hepatitis B surface antigen Lab Routine Encounter for supervision of normal first in first trimester Expected: 01/24/2024 (Approximate), Expires: 01/23/2025 [facility] Comment on above: Expected: 01/24/2024 (Approximate), Expires: 01/23/2025 Start: 01-24-2024 End: 01-23-2025 Hepatitis C virus Ab [Presence] in Serum or Plasma by Immunoassay Hepatitis C antibody Lab Routine Encounter for supervision of normal first in first trimester Expected: 01/24/2024 (Approximate), Expires: 01/23/2025 [facility] Comment on above: Expected: 01/24/2024 (Approximate), Expires: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
--- NOTE | 2024-07-21 01:28 | ED_ITS ---
HPI - Dizziness General Chief Complaint: Dizziness Stated Complaint: DIZZY Time Seen by Provider: 07/21/24 01:24 Source: patient Mode of arrival: ambulance History of Present Illness HPI Narrative: [id number] 33 weeks . Denies complications. Sitting and became sweaty, dizzy and nauseated. States she vomited. States friend states she then passed out. she now arrives via Squad. Mild headache. No chest pain. denies vaginal bleeding or discharge and still can feel baby moving Related Data Home Medications ?Medication ?Instructions ?Recorded ?Confirmed ondansetron 4 mg disintegrating 4 mg PO Q8H PRN nausea and vomiting 02/12/24 07/21/24 tablet vit no.95-ferrous 1 tab PO DAILY 04/05/24 07/21/24 fumarate 28 mg-folic acid 800 mcg tablet () Allergies Allergy/AdvReac Type Severity Reaction Status Date / Time No Known Drug Allergies Allergy Verified 07/21/24 01:13 Review of Systems ROS Status of ROS 10 or more systems reviewed and unremark able except as noted in history and below [facility] Medical History (Updated 07/21/24 @ 02:47 by Amadeo Graham MD) Colon perforation ?K63.1 - Perforation of intestine (nontraumatic) (ICD-10) Social History Smoking status: Current every day smoker Little interest or pleasure in doing things: not at all Feeling down, depressed, or hopeless: not at all Exam Constitutional Vital Signs, click to edit/add: Last Vital Signs Temp 98.8 F 07/21/24 01:07 Pulse 92 H 07/21/24 02:30 Resp 17 07/21/24 02:30 BP 122/81 07/21/24 02:30 Pulse Ox 100 07/21/24 02:30 O2 Del Method Room Air 07/21/24 01:07 Common normals: no apparent distress, average body habitus, oriented x3, no limitations, healthy appearing, alert and well nourished [facility] Common normals: normocephalic and head/scalp atraumatic Respiratory Common normals: normal respiratory effort, no retractions, no use of accessory muscles and clear to auscultation bilaterally Cardio Common normals: S1 normal heart sound and S2 normal heart sound Rate: tachycardic GI Common normals: Normal to inspection, nondistended, normoactive bowel sounds present, soft to palpation and non-tender Extremity Common normals: normal to inspection and full ROM Neuro Common normals: oriented x3, CN's II-XII intact bilaterally, moves all extremities and no focal motor deficits Psych Appearance: grossly normal Course Vital Signs Vital signs: Vital Signs Temperature 98.8 F 07/21/24 01:07 Pulse Rate 110 H 07/21/24 01:07 Respiratory Rate 16 07/21/24 01:07 Blood Pressure 121/90 07/21/24 01:07 Pulse Oximetry 99 07/21/24 01:07 Oxygen Delivery Method Room Air 07/21/24 01:07 Temperature 98.8 F 07/21/24 01:07 Pulse Rate 92 H 07/21/24 02:30 Respiratory Rate 17 07/21/24 02:30 Blood Pressure 122/81 07/21/24 02:30 Pulse Oximetry 100 07/21/24 02:30 Oxygen Delivery Method Room Air 07/21/24 01:07 MDM - Dizziness MDM Narrative Medical decision making narrative: patient presents after syncope episode at home . 33 weeks . Became sweaty, nauseated and then vomited. After vomiting she reportedly passed out. She complained of dizziness. After arrival here patient able to ambulate to bathroom without complaint. labs with evidence of dehydration and UTI. Mild elevation of BS. Patient hydrated in the department and given first dose of keflex. Discharged to be evaluated by L and D Lab Data Labs: Lab Results 07/21/24 07/21/24 Range/Units 01:15 01:47 WBC 10.9 (4.0-11.0) 10^3/uL RBC 3.49 L (4.20-5.40) 10^6/uL Hgb 10.9 L (12.0-16.0) g/dL Hct 31.0 L (36.0-48.0) % MCV 88.8 (81.0-99.0) fL MCH 31.2 (26.7-34.0) pg MCHC 35.2 (29.9-35.2) g/dL RDW 12.7 (11.0-15.0) % Plt Count 285 (150-450) 10^3/uL MPV 10.8 (9.5-13.5) fL Neut % (Auto) 73.8 (43.0-75.0) % Lymph % (Auto) 19.1 L (20.5-60.0) % Wake % (Auto) 5.7 (1.7-12.0) % Eos % (Auto) 0.5 L (0.9-7.0) % Baso % (Auto) 0.4 (0.2-2.0) % Neut # (Auto) 8.1 H (1.4-6.5) 10^3/uL Lymph # (Auto) 2.1 (1.2-3.8) 10^3/uL Wake # (Auto) 0.6 (0.3-0.8) 10^3/uL Eos # (Auto) 0.1 (0.0-0.7) 10^3/uL Baso # (Auto) 0.0 (0.0-0.1) 10^3/uL Abs Immat Gran (auto) 0.05 H (0.00-0.03) 10^3/uL Imm/Tot Granulo (auto) 0.5 (0.0-0.5) % Sodium 137 (136-145) mmol/L Potassium 3.7 (3.5-5.1) mmol/L Chloride 104 (98-107) mmol/L Carbon Dioxide 23.2 (21.0-32.0) mmol/L Anion Gap 13.5 BUN 8.0 (7.0-18.0) mg/dL Creatinine 0.69 (0.55-1.02) mg/dL Est GFR ( Amer) >60 (>=60 mL/min/1.73m^2) Est GFR (Non-Af Amer) >60 (>=60 mL/min/1.73m^2) BUN/Creatinine Ratio 11.6 Glucose 115 H (74-106) mg/dL Calcium 8.6 (8.5-10.1) mg/dL Total Bilirubin 0.4 (0.2-1.0) mg/dL AST 16 (15-37) U/L ALT 17 (14-59) U/L Alkaline Phosphatase 121 H (46-116) U/L Total Protein 6.4 (6.4-8.2) g/dL Albumin 2.7 L (3.4-5.0) g/dL Globulin 3.7 g/dL Albumin/Globulin Ratio 0.7 Urine Color Yellow (YELLOW) Urine Clarity Clear (CLEAR) Urine pH 6.0 (5.0-9.0) Ur Specific [place] >=1.030 A (1.005-1.025) Urine Protein 30 A (NEG/TRACE) mg/dL Urine Glucose (UA) Negative (NEGATIVE) mg/dL Urine Ketones Trace A (NEGATIVE) mg/dL Urine Occult Blood Negative (NEGATIVE) Urine Nitrite Negative (NEGATIVE) Urine Bilirubin Negative (NEGATIVE) Urine Urobilinogen 1.0 (0.2-1.0) EU/dL Ur Leukocyte Esterase Trace A (NEGATIVE) Urine RBC 0-2 (0-2) #/HPF Urine WBC 0-2 A (NONE SEEN) #/HPF Ur Squamous Epith Cells Few A (NONE/RARE) #/LPF Urine Crystals None seen (None Seen) #/HPF Urine Bacteria Large A (NONE SEEN) #/HPF Urine Casts None seen (NONE SEEN) #/LPF Urine Mucus Trace A (NONE SEEN) Ur Culture Indicated? Yes-[facility] [place] Discharge Plan Discharge Chief Complaint: Dizziness Clinical Impression: Vaso vagal episode, UTI (urinary tract infection) Patient Disposition: Home, Self-Care Prescriptions / Home Meds: No Action ondansetron 4 mg tablet,disintegrating 4 mg PO Q8H PRN (Reason: nausea and vomiting) PNV cmb#95-ferrous fumarate-FA [] 28 mg iron- 800 mcg tablet 1 tab PO DAILY Print Language: Belarusian Instructions: Syncope (ED), Urinary Tract Infection in (ED) Additional Instructions: drink plenty of fluids Referrals: Physician,Non-Staff, MD [Primary Care Provider] - 1 week
[2024-07-21 01:38] LABS: Basophils Percent Auto 0.4 % (0.2-2.0); Eosinophils Absolute Auto 0.1 10^3/uL (0.0-0.7); Eosinophils Percent Auto 0.5 % (0.9-7.0); Hemoglobin 10.9 g/dL (12.0-16.0); Immature Granulocytes Abs Auto 0.05 10^3/uL (0.00-0.03); Immature Granulocytes Pct Auto 0.5 % (0.0-0.5); Lymphocytes Absolute Auto 2.1 10^3/uL (1.2-3.8); Lymphocytes Percent Auto 19.1 % (20.5-60.0); Mean Corpuscular HGB Conc 35.2 g/dL (29.9-35.2); Mean Corpuscular Hemoglobin 31.2 pg (26.7-34.0); Mean Corpuscular Volume 88.8 fL (81.0-99.0); Mean Platelet Volume 10.8 fL (9.5-13.5); Monocytes Absolute Auto 0.6 10^3/uL (0.3-0.8); Monocytes Percent Auto 5.7 % (1.7-12.0); Neutrophils Absolute Auto 8.1 10^3/uL (1.4-6.5); Neutrophils Percent Auto 73.8 % (43.0-75.0); Platelet Count 285 10^3/uL (150-450); Red Blood Count 3.49 10^6/uL (4.20-5.40); Red Cell Distribution Width 12.7 % (11.0-15.0); White Blood Count 10.9 10^3/uL (4.0-11.0)
[2024-07-21] MEDS: 0.9 % SODIUM CHLORIDE 1,000 ML 999 ML IV (01:45)
[2024-07-21 01:48] LABS: Alanine Aminotransferase 17 U/L (14-59); Albumin Globulin Ratio 0.7; Albumin Level 2.7 g/dL (3.4-5.0); Alkaline Phosphatase 121 U/L (46-116); Anion Gap 13.5; Aspartate Amino Transferase 16 U/L (15-37); BUN Creatinine Ratio 11.6; Bilirubin Total 0.4 mg/dL (0.2-1.0); Calcium 8.6 mg/dL (8.5-10.1); Carbon Dioxide 23.2 mmol/L (21.0-32.0); Chloride 104 mmol/L (98-107); Estimated GFR (African America >60 (>=60 mL/min/1.73m^2); Estimated GFR (Non-African Ame >60 (>=60 mL/min/1.73m^2); Globulin 3.7 g/dL; Glucose 115 mg/dL (74-106); Potassium 3.7 mmol/L (3.5-5.1); Sodium 137 mmol/L (136-145); Total Protein 6.4 g/dL (6.4-8.2)
[2024-07-21 02:03] LABS: Bilirubin Urine NEGATIVE (NEGATIVE); Blood Urine NEGATIVE (NEGATIVE); Clarity Urine CLEAR (CLEAR); Color Urine YELLOW (YELLOW); Glucose Urine UA NEGATIVE (NEGATIVE); Ketones Urine TRACE mg/dL (NEGATIVE); Leukocyte Esterase Urine TRACE (NEGATIVE); Nitrite Urine NEGATIVE (NEGATIVE); Protein Urine 30 mg/dL (NEG/TRACE); Specific Gravity Urine >=1.030 (1.005-1.025)
[2024-07-21 02:11] LABS: Bacteria Urine LARGE #/HPF (NONE SEEN); Cast Seen? NONE SEEN #/LPF (NONE SEEN); Crystals Seen? None Seen #/HPF (None Seen); Mucus Urine TRACE (NONE SEEN); RBC Urine 0-2 #/HPF (0-2); Squamous Epithelial Cell Urine FEW #/LPF (NONE/RARE); Urine Culture Indicated YES-FRMC; WBC Urine 0-2 #/HPF (NONE SEEN)
[2024-07-21] MEDS: CEPHALEXIN 500 MG CAPSULE PO (02:57)
--- NOTE | 2024-07-21 04:16 | ECG_ITS ---
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 Measurements Intervals [place] Rate: 88 P: 30 LA: 128 QRS: 70 QRSD: 80 T: 4 QT: 336 QTc: 381 Interpretive Statements 1100 Sinus rhythm 4068 Nonspecific Twave abnormality Abnormal ECG Compared to ECG 04/19/2024 14:47:26 No significant changes Electronically Signed On 07-21-2024 7:14:46 EDT by REGINO COBB M.D.
== END 2024-07-21 03:11 | disposition home or self-care (01) ==
PROVIDERS: Emergency Provider Internal Medicine
DX: O26.893 Other specified pregnancy related conditions, third trimester (principal); R55 Syncope and collapse; O23.43 Unspecified infection of urinary tract in pregnancy, third trimester; N39.0 Urinary tract infection, site not specified; R42 Dizziness and giddiness; Z3A.33 33 weeks gestation of pregnancy
CPT/HCPCS: 36415; 80053; 81001; 85025; 87086; 93005; 99284

== ENCOUNTER 2024-07-21 03:12 | Observation (INO) | payer OTHER, SELFPAY ==
--- OUTSIDE RECORDS SUMMARY | 2024-07-21 03:17 | XMS_ITS | CCD ---
Author Organization [facility] Care Team Providers Care 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 Name Role Phone Jack Khan Unavailable BRIONNA [...] ., DR BRIONNA Bowen Primary Care Unavailable ESE ., DR BRIONNA Bowen Admitting Unavailable SEE ., DR BRIONNA Bowen Attending Unavailable SEE ., DR BRIONNA Bowen Consulting Unavailable SEE ., DR BRIONNA Bowen Primary Care Unavailable SEE ., DR BRIONNA Bowen Primary Care Unavailable SEE ., DR BRIONNA Bowen Admitting Unavailable SEE ., DR BRIONNA Bowen Attending Unavailable SEE ., DR BRIONNA Bowen Consulting Unavailable MD Brionna See Primary Care Provider [phone] MD Rajesh Solis Admit Provider MD Rajesh Solis Attending Provider [phone] BRIONNA SEE Primary Care Physician [phone] Unavailable Primary Care Provider UnavailDO Kim Coates Emergency Provider NON STAFF Primary Care Provider UnavailDO Starr Wilkinson Emergency Provider ALLI MACK Primary Care Physician Socorro Santana Primary Care Physician [phone], IP EGS TEAM Consulting UnavailLEE Huitron Attending Unavailable PROVIDER, UNKNOWN Admitting Unavailable -[phone], IP TEAM TRAUMA Consulting Unavail able STARR HOOKS Attending Unavailable SLACK, KIM Referring Unavailable ROEHRS, KIM Admitting Unavailable -[phone], IP TEAM TRAUMA Consulting Unavail able REQUEST, [...] Admitting Unavailable ALLI MACK Primary Care Physician [phone] CHRIS Sandra Emergency Provider [phone] NO FAMILY, PHYSICIAN Primary Care Provider Unava [...] Attending Provider Nafisa Lubin MD Attending Provider [phone] DO Dino Mccollum Attending Unavailable ROCAEL MACK Attending UnavailROCAEL Mead Attending UnavailRodolfo Sosa MD Emergency Provider NO FAMILY, PHYSICIAN Primary Care Provider Unava ilable Sid Bo DO Emergency Provider [phone] NON STAFF Primary Care Provider UnavailIveth Garcia DO Attending Provider [phone] Nafisa Lubin MD Attending Provider [phone] Edwardo Teague MD Attending Provider NO FAMILY, PHYSICIAN Primary Care Unavailable Iveth [...] Ordered Start: 08-08-2023 take 2 tablets by [facility] every six hours as needed acetaminophen (TYLENOL) [...] oral solution (5 sources) alpha-Adrenergic Agonist, Uncompetitive Z-wanpvh-A-asparta te Receptor Antagonist, Sigma-1 Agonist Start: 03-23-2022 [...] 14 supp, Refills(s) 0, [facility]: [facility] #[id number], 168, cm, 04/11/22 12:06:00 EST, Height/Length Dosing, [...] 0 08/08/2023 08/09/2023 Active polyethylene glycol 3350 43132 mg powder for oral solution (6 sources) Osmotic Laxative Start: 08-29-2023 take 17 g by mouth twice daily Miralax 3350 17 gram packet 17 gm, Oral, BID, # 24 EA, Refills(s) 0, Pharmacy: [facility]/pharmacy #[id number], 165.1, cm, 08/29/23 13:18:00 EDT, [...] day(s), # 255 gm, Refills(s) 0, [facility]: [facility] #[id number], 168, cm, 04/11/22 12:06:00 EST, Height/Length Dosing, [...] Amphetamines Ql (U) Amphetamines screen Negativ e [facility] Appearance of UrineOrdered B y: EDWARDO TEAGUE on 06-19-2024 Appearance (U) Urine appearance Clear [facility] Barbiturates [Presence] in U rine by Screen methodOrdered By: EDWARDO TEAGUE on 06-19-2024 Barbiturates Screen Ql (U) Barbiturates [Presence] in Urine by Screen method Negative [facility] Benzodiazepines Screen Ql (U )Ordered By: EDWARDO TEAGUE on 06-19-2024 Benzodiazepines Ql (U) Benzodiazepines [ Presence] in Urine by Screen method Negative [facility] Benzoylecgonine [Presence] i n Urine by Screen methodOrdered By: EDWARDO TEAGUE on 06-19-2024 Benzoylecgonine Screen Ql (U) Benzoylecgonine [Presence] in Urine by Screen method Negative [facility] Bilirubin Test strip Ql (U)O rdered By: EDWARDO TEAGUE on 06-19-2024 Bilirubin Ql (U) Bilirubin.total [Pre sence] in Urine by Test strip Negative [facility] Color Auto (U)Ordered By: PIYUSH TEAGUE on 06-19-2024 Color (U) Color of Urine by Auto Yellow [facility] Fibronectinon 06-20-19 25 Fibronectin Negative Normal Negative [facility] Comment on above: Order Comment: Name Collection Type:: Clean-Voided Midstream Result Comment: PERF ORMED BY: [facility] [address] [place] [address] PATHOLOGIST ALL SOURCE ANALYST SYLVIA ANDERSON M.D. Performed By: #### C EPHEID NEG, COVID19 FLU RSV, ADDONUAPLUS, UHCG #### [facility] [address] [place] [address] [place] fibronectin measuremen tOrdered By: EDWARDO TEAGUE on 06-19-2024 Fibronectin. (Vag fld) [Mass/Vol] fibronectin Negative [facility] Glucose [Mass/volume] in Uri ne by Test stripOrdered By: EDWARDO TEAGUE on 06-19-2024 Glucose Test strip (U) [Mass/Vol] Glucose [Mass/volume] in Urine by Test strip Normal [facility] Hemoglobin Test strip Ql (U) Ordered By: EDWARDO TEAGUE on 06-19-2024 Hemoglobin Ql (U) Hemoglobin [Presence ] in Urine by Test strip Negative [facility] Ketones Test strip Ql (U)Ord ered By: EDWARDO TEAGUE on 06-19-2024 Ketones Ql (U) Ketones [Presence] i n Urine by Test strip High Negative [facility] Leukocyte esterase [Presence ] in Urine by Test stripOrdered By: EDWARDO TEAGUE on 06-19-2024 Leukocyte esterase Test strip Ql (U) Leukocyte esterase [Presence] in Urine by Test strip Negative [facility] Nitrite Test strip Ql (U)Ord ered By: EDWARDO TEAGUE on 06-19-2024 Nitrite Ql (U) Nitrite [Presence] i n Urine by Test strip Negative [facility] OB Urine Drug Screen (NO THC )on 06-19-2024 Amphetamine Screen,Urine Negative Normal Negative [facility] Comment on above: Order Comment: Comme nt s/s of acute impairment Performed By: #### U A, OBUDS #### [facility] [address] [place] [address] [place] Barbiturate Screen,Urine Negative Normal Negative [facility] Comment on above: Order Comment: Comme nt s/s of acute impairment Performed By: #### U A, OBUDS #### [facility] [address] [place] [address] [place] Benzodiazepines Screen,Urine Negative Normal Negative [facility] Comment on above: Order Comment: Comme nt s/s of acute impairment Performed By: #### U A, OBUDS #### [facility] [address] [place] [id number] [place] Cocaine Screen,Urine Negative Normal Negative [facility] Comment on above: Order Comment: Comme nt s/s of acute impairment Performed By: #### U A, OBUDS #### [facility] [address] Opiate Screen,Urine Negative Normal Negative [facility] Comment on above: Order Comment: Comme nt s/s of acute impairment Performed By: #### U A, OBUDS #### [facility] [address] Phencyclidine Screen, Urine Negative Normal Negative [facility] Comment on above: Order Comment: Comme nt s/s of acute impairment Result Comment: Thes e are unconfirmed results and should not be used for legal purposes. Drug Cut-Off Concentration: AMPH 1000 ng/mL NIKKI 200 ng/mL CHENG 200 ng/mL COCM 300 ng/mL OP 300 ng/mL PCP 25 ng/mL PERFORMED BY: [place] [address] PATHOLOGIST ALL SOURCE ANALYST SYLVIA ANDERSON M.D. Performed By: #### U A, OBUDS #### [facility] [address] [place] [address] Opiates [Presence] in Urine by Screen methodOrdered By: EDWARDO TEAGUE on 06-19-2024 Opiates Screen Ql (U) Opiates [Presence] in Urine by Screen method Negative [facility] Phencyclidine Screen Ql (U)O rdered By: EDWARDO TEAGUE on 06-19-2024 Phencyclidine Ql (U) Phencyclidine [Pres ence] in Urine by Screen method Negative [facility] Comment on above: [...] ume] in Urine by Test strip Negative [facility] Specific gravity Test strip (U) [Rel density]Ordered By: EDWARDO TEAGUE on 06-19-2024 Specific gravity (U) [Rel density] Specific gravity of Urine by Test strip 1.001-1.03 0 [facility] Urinalysison 06-19-2024 Appearance (U) Clear Normal Clear [facility] Comment on above: Order Comment: Comme nt c/o urinary symptoms or increased blood pressure Name Collection Type:: Clean-Voided Midstream Performed By: #### U A, OBUDS #### [address] Bilirubin,Urine Negative Normal Negative [facility] Comment on above: Order Comment: Comme nt c/o urinary symptoms or increased blood pressure Name Collection Type:: Clean-Voided Midstream Performed By: #### U A, OBUDS #### [address] Color (U) Light-Yellow Normal Yellow [facility] Comment on above: Order Comment: Comme nt c/o urinary symptoms or increased blood pressure Name Collection Type:: Clean-Voided Midstream Performed By: #### U A, OBUDS #### [address] Glucose Ql (U) Normal Normal Normal [facility] Comment on above: Order Comment: Comme nt c/o urinary symptoms or increased blood pressure Name Collection Type:: Clean-Voided Midstream Performed By: #### U A, OBUDS #### [place] [address] [place] Ketones Ql (U) 1+ High Negative [facility] Comment on above: Order Comment: Comme nt c/o urinary symptoms or increased blood pressure Name Collection Type:: Clean-Voided Midstream Performed By: #### U A, OBUDS #### [address] Leukocyte esterase Test strip Ql (U) Negative Normal Negative [facility] Comment on above: Order Comment: Comme nt c/o urinary symptoms or increased blood pressure Name Collection Type:: Clean-Voided Midstream Performed By: #### U A, OBUDS #### [place] [address] [place] Nitrite,Urine Negative Normal Negative [facility] Comment on above: Order Comment: Comme nt c/o urinary symptoms or increased blood pressure Name Collection Type:: Clean-Voided Midstream Performed By: #### U A, OBUDS #### [address] Occult Blood,Urine Negative Normal Negative [facility] Comment on above: Order Comment: Comme nt c/o urinary symptoms or increased blood pressure Name Collection Type:: Clean-Voided Midstream Result Comment: PERF ORMED BY: [place] [address] PATHOLOGIST ALL SOURCE ANALYST SYLVIA ANDERSON M.D. Performed By: #### U A, OBUDS #### [address] pH (U) 6.0 [pH] Normal 5.0-9.0 [facility] Comment on above: Order Comment: Comme nt c/o urinary symptoms or increased blood pressure Name Collection Type:: Clean-Voided Midstream Performed By: #### U A, OBUDS #### [place] [address] [place] Protein,Urine Negative Normal Negative [facility] Comment on above: Order Comment: Comme nt c/o urinary symptoms or increased blood pressure Name Collection Type:: Clean-Voided Midstream Performed By: #### U A, OBUDS #### [address] Specificy Leiter,Urine 1.022 Normal 1.001-1.03 0 [facility] Comment on above: Order Comment: Comme nt c/o urinary symptoms or increased blood pressure Name Collection Type:: Clean-Voided Midstream Performed By: #### U A, OBUDS #### [address] Urobilinogen,Urine Normal Normal Normal [facility] Comment on above: Order Comment: Comme nt c/o urinary symptoms or increased blood pressure Name Collection Type:: Clean-Voided Midstream Performed By: #### U A, OBUDS #### [address] Urobilinogen Test strip (U) [Mass/Vol]Ordered By: EDWARDO TEAGUE on 06-19-2024 Urobilinogen (U) [Mass/Vol] Urobilinogen [Mass/volume] in Urine by Test strip Normal [facility] pH Test strip (U)Ordered By: EDWARDO TEAGUE on 06-19-2024 pH (U) pH of Urine by Test strip 5.0-9.0 [facility] POCT URINALYSIS 4 DIPSTICKon 06-10-2024 Glucose, UA Negative Negative - 1999(110) ++++ mg/dL [facility] Protein, UA Negative Negative - 1999(20) ++++ mg/dL [facility] No Panel Informationon 05-23 Glucose, UA Negative Negative - 1999(110) ++++ mg/dL [facility] Protein, UA Negative Negative - 1999(20) ++++ mg/dL [facility] FPG ECG *CARDIOLOGY ONLY*on 05-22-2024 FPG ECG *CARDIOLOGY ONLY* [facility] [place] [address] [place] [address] Electrocardiograph Report Signed Patient: Thuy Malik MR#: [id number] 33 : 2005 Acct:[id number] Age/Sex: 18 / F ADM Date: 05/22/24 Loc: EKGCARDIO Room: Type: [facility] Attending Dr: Nafisa Lubin MD Ordering Provider: [...] ischemia Abnormal ECG Confirmed by Nafisa Lubin ([id number]) on 05/22/2024 6:13:37 PM Referred By: Electronically Signed By: Nafisa Lubin Transcribed By: MUS Signed By Nafisa Lubin MD 5 1813 Normal [facility] Alanine aminotransferase [En zymatic activity/volume] in Serum or PlasmaOrdered By: Iveth Pemberton on 05-14-2024 ALT [Catalytic activity/Vol] Alanine aminotransferase [Enzymatic activity/volume] in Serum or Plasma 7-52 [facility] Albumin [Mass/volume] in Ser um or Plasma by Bromocresol green (BCG) dye binding methoOrdered By: Iveth Pemberton on 05-14-2024 Albumin BCG dye [Mass/Vol] Albumin [Mass/volume] in Serum or Plasma by Bromocresol green (BCG) dye binding metho 3.5-5.7 [facility] Alkaline phosphatase [Enzyma tic activity/volume] in Serum or PlasmaOrdered By: Iveth Pemberton on 05-14-2024 ALP [Catalytic activity/Vol] Alkaline phosphatase [Enzymatic activity/volume] in Serum or Plasma 34-104 [facility] Aspartate aminotransferase [ Enzymatic activity/volume] in Serum or PlasmaOrdered By: Iveth Pemberton on 05-14-2024 AST [Catalytic activity/Vol] Aspartate aminotransferase [Enzymatic activity/volume] in Serum or Plasma Low 13-39 [facility] Basophils Auto (Bld) [#/Vol] Ordered By: Iveth Pemberton on 05-14-2024 Basophils (Bld) [#/Vol] Automated basophil count 0.0-0.2 [facility] Basophils/100 WBC Auto (Bld) Ordered By: Iveth Pemberton on 05-14-2024 Basophils/100 WBC (Bld) Automated basophil % . [facility] Bilirubin.total [Mass/volume ] in Serum or PlasmaOrdered By: Iveth Pemberton on 05-14-2024 Bilirubin [Mass/Vol] Bilirubin.total [Mass/volume] in Serum or Plasma 0.3-1.0 [facility] Calcium [Mass/volume] in Ser um or PlasmaOrdered By: Iveth Pemberton on 05-14-2024 Calcium [Mass/Vol] Calcium [Mass/volume ] in Serum or Plasma 8.6-10.3 [facility] Carbon dioxide, total [Moles /volume] in Serum or PlasmaOrdered By: Iveth Pemberton on 05-14-2024 CO2 [Moles/Vol] Carbon dioxide, tota l [Moles/volume] in Serum or Plasma 21.0-31.0 [facility] Chloride [Moles/volume] in S luciana or PlasmaOrdered By: Iveth Pemberton on 05-14-2024 Chloride [Moles/Vol] Chloride [Moles/vol ume] in Serum or Plasma 98-107 [facility] Complete Blood Count Auto Di ffon 05-14-2024 Basophils (Bld) [#/Vol] 0.1 10*3/uL Normal 0.0-0.2 [facility] Comment on above: Result Comment: PERF ORMED BY: [place] [address] PATHOLOGIST ALL SOURCE ANALYST SYLVIA ANDERSON M.D. Performed By: #### C BC #### [address] Basophils/100 WBC (Bld) 0.7 % Normal . [facility] Comment on above: Performed By: #### C BC #### [address] Eosinophils (Bld) [#/Vol] 0.1 10*3/uL Normal 0.0-0.45 [facility] Comment on above: Performed By: #### C BC #### [address] Eosinophils/100 WBC (Bld) 1.1 % Normal . [facility] Comment on above: Performed By: #### C BC #### [address] Erythrocyte distribution width (RBC) [Ratio] 12.8 % Normal 11.9-15.3 [facility] Comment on above: Performed By: #### C BC #### [address] Hematocrit (Bld) [Volume fraction] 33.4 % Low 34.0-46.4 [facility] Comment on above: Performed By: #### C BC #### [address] Hemoglobin (Bld) [Mass/Vol] 11.7 g/dL Low 11.8-15.4 [facility] Comment on above: Performed By: #### C BC #### [address] Lymphocytes (Bld) [#/Vol] 2.1 10*3/uL Normal 1.00-4.8 [facility] Comment on above: Performed By: #### C BC #### [address] Lymphocytes/100 WBC (Bld) 18.9 % Normal . [facility] Comment on above: Performed By: #### C BC #### [address] MCH (RBC) [Entitic mass] 32.3 pg Normal 24.7-34.3 [facility] Comment on above: Performed By: #### C BC #### [address] MCV (RBC) [Entitic vol] 92.7 fL Normal 80-100 [facility] Comment on above: Performed By: #### C BC #### [address] Mean Corpuscular HGB Conc 34.8 g/dL Normal 32.0-35.0 [facility] Comment on above: Performed By: #### C BC #### [address] Monocytes (Bld) [#/Vol] 0.8 10*3/uL Normal 0.0-0.8 [facility] Comment on above: Performed By: #### C BC #### [address] Monocytes/100 WBC (Bld) 6.8 % Normal . [facility] Comment on above: Performed By: #### C BC #### [address] Neutrophils (Bld) [#/Vol] 8.0 10*3/uL High 1.8-7.7 [facility] Comment on above: Performed By: #### C BC #### [address] Neutrophils/100 WBC (Bld) 72.5 % Normal . [facility] Comment on above: Performed By: #### C BC #### [address] NRBC% 0.1 /100{WBC} Normal 0-0.5 [facility] Comment on above: Performed By: #### C BC #### [address] Platelet mean volume (Bld) [Entitic vol] 8.6 fL Normal 6.3-10.7 [facility] Comment on above: Performed By: #### C BC #### [address] Platelets (Bld) [#/Vol] 283 10*3/uL Normal 150-450 [facility] Comment on above: Performed By: #### C BC #### [address] RBC (Bld) [#/Vol] 3.61 10*6/uL Normal 3.60-5.00 [facility] Comment on above: Performed By: #### C BC #### [address] WBC (Bld) [#/Vol] 11.1 10*3/uL Normal 3.8-11.6 [facility] Comment on above: Performed By: #### C BC #### [address] Comprehensive Metabolic Pane kay 05-14-2024 Albumin [Mass/Vol] 3.6 g/dL Normal 3.5-5.7 [facility] Comment on above: Performed By: #### U A, OBUDS #### [address] Albumin/Globulin [Mass ratio] 1.4 {ratio} Normal [facility] Comment on above: Performed By: #### U A, OBUDS #### [address] ALP [Catalytic activity/Vol] 46 U/L Normal 34-104 [facility] Comment on above: Result Comment: PERF ORMED BY: [place] [address] PATHOLOGIST ALL SOURCE ANALYST SYLVIA ANDESRON M.D. Performed By: #### U A, OBUDS #### [address] ALT [Catalytic activity/Vol] 7 U/L Normal 7-52 [facility] Comment on above: Performed By: #### U A, OBUDS #### [address] Anion gap [Moles/Vol] 7.8 mmol/L Normal 6.0-15.0 [facility] Comment on above: Performed By: #### U A, OBUDS #### [address] AST [Catalytic activity/Vol] 10 U/L Low 13-39 [facility] Comment on above: Performed By: #### U A, OBUDS #### [address] Bilirubin [Mass/Vol] 0.6 mg/dL Normal 0.3-1.0 [facility] Comment on above: Performed By: #### U A, OBUDS #### [address] Calcium [Mass/Vol] 8.9 mg/dL Normal 8.6-10.3 [facility] Comment on above: Performed By: #### U A, OBUDS #### [place] [address] [place] Chloride [Moles/Vol] 104 mmol/L Normal 98-107 [facility] Comment on above: Performed By: #### U A, OBUDS #### [address] CO2 [Moles/Vol] 27.7 mmol/L Normal 21.0-31.0 [facility] Comment on above: Performed By: #### U A, OBUDS #### [address] Creatinine [Mass/Vol] 0.57 mg/dL Low 0.60-1.20 [facility] Comment on above: Performed By: #### U A, OBUDS #### [place] [address] [place] GFR/1.73 sq M.predicted MDRD (S/P/Bld) [Vol rate/Area] mL/min/{1.73_m2} Normal [facility] Comment on above: Performed By: #### U A, OBUDS #### [address] Globulin (S) [Mass/Vol] 2.5 g/dL Normal [facility] Comment on above: Performed By: #### U A, OBUDS #### [address] Glucose [Mass/Vol] 72 mg/dL Normal 70-100 [facility] Comment on above: Result Comment: [place] Glucose Reference Range is dependent on time and content of last meal. Glucose of more than 200 mg/dL in a nonstressed, ambulatory subject supports the diagnosis of Diabetes Mellitus. ADA recommended reference range Performed By: #### U A, OBUDS #### [address] Potassium [Moles/Vol] 4.5 mmol/L Normal 3.5-5.1 [facility] Comment on above: Performed By: #### U A, OBUDS #### [address] Protein [Mass/Vol] 6.1 g/dL Low 6.4-8.9 [facility] Comment on above: Performed By: #### U A, OBUDS #### [facility] [address] Sodium [Moles/Vol] 135 mmol/L Low 136-145 [facility] Comment on above: Performed By: #### U A, OBUDS #### [facility] [address] Urea nitrogen [Mass/Vol] 8 mg/dL Normal 7-25 [facility] Comment on above: Performed By: #### U A, OBUDS #### [facility] [address] Creatinine [Mass/volume] in Serum or PlasmaOrdered By: Iveth Pemberton on 05-14-2024 Creatinine [Mass/Vol] Creatinine [Mass/v olume] in Serum or Plasma Low 0.60-1.20 [facility] ECG 12 lead ECGon 05-14-2024 ECG 12 lead ECG [facility] [place] [address] Electrocardiograph Report Signed Patient: Thuy Malik MR#: [id number] 33 : 2005 Acct:[id number] Age/Sex: 18 / F ADM Date: 05/14/24 Loc: Room: Type: [facility] Attending Dr: Iveth Pemberton DO Ordering Provider: [...] : 416 ms Sinus rhythm with short RI Nonspecific T wave abnormality Confirmed by Nafisa Lubin ([id number]) on 05/14/2024 11:52:56 PM Referred By: Electronically Signed By: Nafisa Lubin Transcribed By: MUS Signed By Nafisa Lubin MD 5 2353 Normal [facility] Eosinophils Auto (Bld) [#/Vo l]Ordered By: Iveth Pemberton on 05-14-2024 Eosinophils (Bld) [#/Vol] Automated eosinophil count 0.0-0.45 [facility] Eosinophils/100 WBC Auto (Bl d)Ordered By: Iveth Pemberton on 05-14-2024 Eosinophils/100 WBC (Bld) Automated eosinophil % . [facility] Erythrocyte distribution wid th Auto (RBC) [Ratio]Ordered By: Iveth Pemberton on 05-14-2024 Erythrocyte distribution width (RBC) [Ratio] Erythrocyte distribution width [Ratio] by Automated count 11.9-15.3 [facility] Globulin Calc (S) [Mass/Vol] Ordered By: Iveth Pemberton on 05-14-2024 Globulin (S) [Mass/Vol] Serum globulin measurement by calculation (mass/volume) [facility] Glucose [Mass/volume] in Ser um or PlasmaOrdered By: Iveth Pemberton on 05-14-2024 Glucose [Mass/Vol] Glucose [Mass/volume ] in Serum or Plasma 70-100 [facility] Comment on above: ADA recommended refe rence rangeRandom Glucose Reference Range is dependent on time and content of last meal. Glucose of more than 200 mg/dL in a nonstressed, ambulatory subject supports the diagnosis of Diabetes Mellitus. Hematocrit Auto (Bld) [Volum e fraction]Ordered By: Iveth Pemberton on 05-14-2024 Hematocrit (Bld) [Volume fraction] Hematocrit [Volume Fraction] of Blood by Automated count Low 34.0-46.4 [facility] Hemoglobin [Mass/volume] in BloodOrdered By: Iveth Pemberton on 05-14-2024 Hemoglobin (Bld) [Mass/Vol] Hemoglobin [Mass/volume] in Blood Low 11.8-15.4 [facility] Leukocytes [#/volume] correc boris for nucleated erythrocytes in Blood by Automated counOrdered By: Iveth Pemberton on 05-14-2024 WBC corrected for nucl RBC Auto (Bld) [#/Vol] Leukocytes [#/volume] corrected for nucleated erythrocytes in Blood by Automated coun 3.8-11.6 [facility] Lymphocytes Auto (Bld) [#/Vo l]Ordered By: Iveth Pemberton on 05-14-2024 Lymphocytes (Bld) [#/Vol] Lymphocytes [#/volume] in Blood by Automated count 1.00-4.8 [facility] Lymphocytes/100 WBC Auto (Bl d)Ordered By: Iveth Pemberton on 05-14-2024 Lymphocytes/100 WBC (Bld) Lymphocytes/100 leukocytes in Blood by Automated count . [facility] MCH Auto (RBC) [Entitic mass ]Ordered By: Iveth Pemberton on 05-14-2024 MCH (RBC) [Entitic mass] MCH [Entitic mass] by Automated count 24.7-34.3 [facility] MCHC Auto (RBC) [Mass/Vol]Or dered By: Iveth Pemberton on 05-14-2024 MCHC (RBC) [Mass/Vol] MCHC [Mass/volume] by Automated count 32.0-35.0 [facility] MCV Auto (RBC) [Entitic vol] Ordered By: Iveth Pemberton on 05-14-2024 MCV (RBC) [Entitic vol] MCV [Entitic volume] by Automated count 80-100 [facility] Magnesiumon 05-14-2024 Magnesium [Mass/Vol] 1.6 mg/dL Low 1.9-2.7 [facility] Comment on above: Result Comment: PERF ORMED BY: [place] [address] PATHOLOGIST ALL SOURCE ANALYST SYLVIA ANDERSON M.D. Performed By: #### U A, OBUDS #### [address] Magnesium [Mass/volume] in S luciana or PlasmaOrdered By: Iveth Pemberton on 05-14-2024 Magnesium [Mass/Vol] Magnesium [Mass/vol ume] in Serum or Plasma Low 1.9-2.7 [facility] Monocytes Auto (Bld) [#/Vol] Ordered By: Iveth Pemberton on 05-14-2024 Monocytes (Bld) [#/Vol] Automated blood monocyte count 0.0-0.8 [facility] Monocytes/100 WBC Auto (Bld) Ordered By: Iveth Pemberton on 05-14-2024 Monocytes/100 WBC (Bld) Automated monocyte % . [facility] Neutrophils Auto (Bld) [#/Vo l]Ordered By: Iveth Pemberton on 05-14-2024 Neutrophils (Bld) [#/Vol] Neutrophils [#/volume] in Blood by Automated count High 1.8-7.7 [facility] Neutrophils/100 WBC Auto (Bl d)Ordered By: Iveth Pemberton on 05-14-2024 Neutrophils/100 WBC (Bld) Automated neutrophil % . [facility] No Panel InformationOrdered By: Iveth Pemberton on 05-14-2024 Estimated GFR (CKD-EPI) > 60.0 mL/Min [facility] Creatinine Clearance (Chem N/A [facility] Nucleated erythrocytes [Pres ence] in Blood by Automated countOrdered By: Iveth Pemberton on 05-14-2024 Nucleated RBC Auto Ql (Bld) Nucleated erythrocytes [Presence] in Blood by Automated count 0-0.5 [facility] Platelet mean volume Auto (B ld) [Entitic vol]Ordered By: Iveth Pemberton on 05-14-2024 Platelet mean volume (Bld) [Entitic vol] Platelet mean volume [Entitic volume] in Blood by Automated count 6.3-10.7 [facility] Platelets Auto (Bld) [#/Vol] Ordered By: Iveth Pemberton on 05-14-2024 Platelets (Bld) [#/Vol] Platelets [#/volume] in Blood by Automated count 150-450 [facility] Potassium [Moles/volume] in Serum or PlasmaOrdered By: Iveth Pemberton on 05-14-2024 Potassium [Moles/Vol] Potassium [Moles/v olume] in Serum or Plasma 3.5-5.1 [facility] Protein [Mass/volume] in Ser um or PlasmaOrdered By: Iveth Pemberton on 05-14-2024 Protein [Mass/Vol] Protein [Mass/volume ] in Serum or Plasma Low 6.4-8.9 [facility] RBC Auto (Bld) [#/Vol]Ordere d By: Iveth Pemberton on 05-14-2024 RBC (Bld) [#/Vol] Erythrocytes [#/volu me] in Blood by Automated count 3.60-5.00 [facility] Serum or plasma albumin/glob ulin mass ratioOrdered By: Iveth Pemberton on 05-14-2024 Albumin/Globulin [Mass ratio] Serum or plasma albumin/globulin mass ratio [facility] Serum or plasma anion gap de terminationOrdered By: Iveth Pemberton on 05-14-2024 Anion gap [Moles/Vol] Serum or plasma an ion gap determination 6.0-15.0 [facility] Sodium [Moles/volume] in Ser um or PlasmaOrdered By: Iveth Pemberton on 05-14-2024 Sodium [Moles/Vol] Sodium [Moles/volume ] in Serum or Plasma Low 136-145 [facility] Urea nitrogen [Mass/volume] in Serum or PlasmaOrdered By: Iveht Pemberton on 05-14-2024 Urea nitrogen [Mass/Vol] Urea nitrogen [Mass/volume] in Serum or Plasma 7-25 [facility] WBC Auto (Bld) [#/Vol]Ordere d By: Iveth Pemberton on 05-14-2024 WBC (Bld) [#/Vol] Leukocytes [#/volume ] in Blood by Automated count 3.8-11.6 [facility] B-Type Natriuretic Peptideon 05-05-2024 Natriuretic peptide B (Bld) [Mass/Vol] 26.0 pg/mL Normal 5-100 [facility] Comment on above: Result Comment: PERF ORMED BY: [facility] [address] [place] [address] PATHOLOGIST ALL SOURCE ANALYST SYLVIA ANDERSON M.D. Performed By: #### C EPHEID NEG, COVID19 FLU RSV, ADDONUAPLUS, UHCG #### [facility] [address] Basic Metabolic Panelon 04-17 Anion gap [Moles/Vol] 10.3 mmol/L Normal 6.0-15.0 [facility] Comment on above: Performed By: #### C EPHEID NEG, COVID19 FLU RSV, ADDONUAPLUS, UHCG #### [address] Calcium [Mass/Vol] 8.9 mg/dL Normal 8.6-10.3 [facility] Comment on above: Performed By: #### C EPHEID NEG, COVID19 FLU RSV, ADDONUAPLUS, UHCG #### [address] Chloride [Moles/Vol] 105 mmol/L Normal 98-107 [facility] Comment on above: Performed By: #### C EPHEID NEG, COVID19 FLU RSV, ADDONUAPLUS, UHCG #### [address] CO2 [Moles/Vol] 23.9 mmol/L Normal 21.0-31.0 [facility] Comment on above: Performed By: #### C EPHEID NEG, COVID19 FLU RSV, ADDONUAPLUS, UHCG #### [address] Creatinine [Mass/Vol] 0.64 mg/dL Normal 0.60-1.20 [facility] Comment on above: Performed By: #### C EPHEID NEG, COVID19 FLU RSV, ADDONUAPLUS, UHCG #### [address] Creatinine Clr Calc Pharmacy 143.84 Normal [facility] Comment on above: Result Comment: PERF ORMED BY: [place] [address] PATHOLOGIST ALL SOURCE ANALYST SYLVIA ANDERSON M.D. Performed By: #### C EPHEID NEG, COVID19 FLU RSV, ADDONUAPLUS, UHCG #### [place] [address] [place] GFR/1.73 sq M.predicted MDRD (S/P/Bld) [Vol rate/Area] mL/min/{1.73_m2} Normal [facility] Comment on above: Performed By: #### C EPHEID NEG, COVID19 FLU RSV, ADDONUAPLUS, UHCG #### [address] Glucose [Mass/Vol] 92 mg/dL Normal 70-100 [facility] Comment on above: Result Comment: [place] Glucose Reference Range is dependent on time and content of last meal. Glucose of more than 200 mg/dL in a nonstressed, ambulatory subject supports the diagnosis of Diabetes Mellitus. ADA recommended reference range Performed By: #### C EPHEID NEG, COVID19 FLU RSV, ADDONUAPLUS, UHCG #### [address] Potassium [Moles/Vol] 4.2 mmol/L Normal 3.5-5.1 [facility] Comment on above: Performed By: #### C EPHEID NEG, COVID19 FLU RSV, ADDONUAPLUS, UHCG #### [address] Sodium [Moles/Vol] 135 mmol/L Low 136-145 [facility] Comment on above: Performed By: #### C EPHEID NEG, COVID19 FLU RSV, ADDONUAPLUS, UHCG #### [address] Urea nitrogen [Mass/Vol] 7 mg/dL Normal 7-25 [facility] Comment on above: Performed By: #### C EPHEID NEG, COVID19 FLU RSV, ADDONUAPLUS, UHCG #### [place] [address] [place] Basophils Auto (Bld) [#/Vol] Ordered By: Sid Bo on 05-05-2024 Basophils (Bld) [#/Vol] Automated basophil count 0.0-0.2 [facility] Basophils/100 WBC Auto (Bld) Ordered By: Sid Bo on 05-05-2024 Basophils/100 WBC (Bld) Automated basophil % . [facility] Calcium [Mass/volume] in Ser um or PlasmaOrdered By: Sid Bo on 05-05-2024 Calcium [Mass/Vol] Calcium [Mass/volume ] in Serum or Plasma 8.6-10.3 [facility] Carbon dioxide, total [Moles /volume] in Serum or PlasmaOrdered By: Sid Bo on 05-05-2024 CO2 [Moles/Vol] Carbon dioxide, tota l [Moles/volume] in Serum or Plasma 21.0-31.0 [facility] Chloride [Moles/volume] in S luciana or PlasmaOrdered By: Sid Bo on 05-05-2024 Chloride [Moles/Vol] Chloride [Moles/vol ume] in Serum or Plasma 98-107 [facility] Complete Blood Count Auto Di ffon 05-05-2024 Basophils (Bld) [#/Vol] 0.1 10*3/uL Normal 0.0-0.2 [facility] Comment on above: Result Comment: PERF ORMED BY: [place] [address] PATHOLOGIST ALL SOURCE ANALYST SYLVIA ANDERSON M.D. Performed By: #### C EPHEID NEG, COVID19 FLU RSV, ADDONUAPLUS, UHCG #### [address] Basophils/100 WBC (Bld) 0.6 % Normal . [facility] Comment on above: Performed By: #### C EPHEID NEG, COVID19 FLU RSV, ADDONUAPLUS, UHCG #### [place] [address] [place] Eosinophils (Bld) [#/Vol] 0.1 10*3/uL Normal 0.0-0.45 [facility] Comment on above: Performed By: #### C EPHEID NEG, COVID19 FLU RSV, ADDONUAPLUS, UHCG #### [address] Eosinophils/100 WBC (Bld) 1.1 % Normal . [facility] Comment on above: Performed By: #### C EPHEID NEG, COVID19 FLU RSV, ADDONUAPLUS, UHCG #### [address] Erythrocyte distribution width (RBC) [Ratio] 12.8 % Normal 11.9-15.3 [facility] Comment on above: Performed By: #### C EPHEID NEG, COVID19 FLU RSV, ADDONUAPLUS, UHCG #### [address] Hematocrit (Bld) [Volume fraction] 33.2 % Low 34.0-46.4 [facility] Comment on above: Performed By: #### C EPHEID NEG, COVID19 FLU RSV, ADDONUAPLUS, UHCG #### [address] Hemoglobin (Bld) [Mass/Vol] 11.7 g/dL Low 11.8-15.4 [facility] Comment on above: Performed By: #### C EPHEID NEG, COVID19 FLU RSV, ADDONUAPLUS, C #### [address] Lymphocytes (Bld) [#/Vol] 1.7 10*3/uL Normal 1.00-4.8 [facility] Comment on above: Performed By: #### C EPHEID NEG, COVID19 FLU RSV, ADDONUAPLUS, UHCG #### [address] Lymphocytes/100 WBC (Bld) 16.6 % Normal . [facility] Comment on above: Performed By: #### C EPHEID NEG, COVID19 FLU RSV, ADDONUAPLUS, UHCG #### [address] MCH (RBC) [Entitic mass] 33.3 pg Normal 24.7-34.3 [facility] Comment on above: Performed By: #### C EPHEID NEG, COVID19 FLU RSV, ADDONUAPLUS, UHCG #### [address] MCV (RBC) [Entitic vol] 94.4 fL Normal 80-100 [facility] Comment on above: Performed By: #### C EPHEID NEG, COVID19 FLU RSV, ADDONUAPLUS, UHCG #### [address] Mean Corpuscular HGB Conc 35.2 g/dL High 32.0-35.0 [facility] Comment on above: Performed By: #### C EPHEID NEG, COVID19 FLU RSV, ADDONUAPLUS, UHCG #### [address] Monocytes (Bld) [#/Vol] 0.3 10*3/uL Normal 0.0-0.8 [facility] Comment on above: Performed By: #### C EPHEID NEG, COVID19 FLU RSV, ADDONUAPLUS, UHCG #### [address] Monocytes/100 WBC (Bld) 17.38 % Normal 0.00-20.00 [facility] Comment on above: Performed By: #### C EPHEID NEG, COVID19 FLU RSV, ADDONUAPLUS, UHCG #### [place] [address] [place] Monocytes/100 WBC (Bld) 3.3 % Normal . [facility] Comment on above: Performed By: #### C EPHEID NEG, COVID19 FLU RSV, ADDONUAPLUS, UHCG #### [place] [address] [place] Neutrophils (Bld) [#/Vol] 8.0 10*3/uL High 1.8-7.7 [facility] Comment on above: Performed By: #### C EPHEID NEG, COVID19 FLU RSV, ADDONUAPLUS, UHCG #### [address] Neutrophils/100 WBC (Bld) 78.4 % Normal . [facility] Comment on above: Performed By: #### C EPHEID NEG, COVID19 FLU RSV, ADDONUAPLUS, UHCG #### [address] NRBC% 0.0 /100{WBC} Normal 0-0.5 [facility] Comment on above: Performed By: #### C EPHEID NEG, COVID19 FLU RSV, ADDONUAPLUS, UHCG #### [address] Platelet mean volume (Bld) [Entitic vol] 8.6 fL Normal 6.3-10.7 [facility] Comment on above: Performed By: #### C EPHEID NEG, COVID19 FLU RSV, ADDONUAPLUS, UHCG #### [address] Platelets (Bld) [#/Vol] 265 10*3/uL Normal 150-450 [facility] Comment on above: Performed By: #### C EPHEID NEG, COVID19 FLU RSV, ADDONUAPLUS, UHCG #### [address] RBC (Bld) [#/Vol] 3.52 10*6/uL Low 3.60-5.00 [facility] Comment on above: Performed By: #### C EPHEID NEG, COVID19 FLU RSV, ADDONUAPLUS, UHCG #### [address] WBC (Bld) [#/Vol] 10.2 10*3/uL Normal 3.8-11.6 [facility] Comment on above: Performed By: #### C EPHEID NEG, COVID19 FLU RSV, ADDONUAPLUS, UHCG #### [address] Creatine Kinaseon 05-05-2024 CK [Catalytic activity/Vol] 13 U/L Low 30-223 [facility] Comment on above: Performed By: #### C EPHEID NEG, COVID19 FLU RSV, ADDONUAPLUS, UHCG #### [address] [place] [address] [facility] Creatine kinase [Enzymatic a ctivity/volume] in Serum or PlasmaOrdered By: Sid Bo on 05-05-2024 CK [Catalytic activity/Vol] Creatine kinase [Enzymatic activity/volume] in Serum or Plasma Low 30-223 [facility] Creatinine [Mass/volume] in Serum or PlasmaOrdered By: Sid Bo on 05-05-2024 Creatinine [Mass/Vol] Creatinine [Mass/v olume] in Serum or Plasma 0.60-1.20 [facility] ECG 12 lead ECGon 05-05-2024 ECG 12 lead ECG [facility] [address] [place] [address] Electrocardiograph Report Signed Patient: Thuy Malik MR#: [id number] 33 : 2005 Acct:[id number] Age/Sex: 18 / F ADM Date: 05/05/24 Loc: ER Room: Type: [facility] ER Attending Dr: Ordering Provider: Sid Bo [...] : 411 ms Sinus rhythm with short RI Otherwise normal ECG When compared with ECG of 03-Dec-2023 13:49, No significant change was found Confirmed by SID BO DO ([id number]) on 05/05/2024 7:39:04 PM Referred By: Electronically Signed By: SID BO DO Transcribed By: MUS Signed By Sid Bo DO 05/05 193 Normal [facility] Eosinophils Auto (Bld) [#/Vo l]Ordered By: Sid Bo on 05-05-2024 Eosinophils (Bld) [#/Vol] Automated eosinophil count 0.0-0.45 [facility] Eosinophils/100 WBC Auto (Bl d)Ordered By: Sid Bo on 05-05-2024 Eosinophils/100 WBC (Bld) Automated eosinophil % . [facility] Erythrocyte distribution wid th Auto (RBC) [Ratio]Ordered By: Sid Bo on 05-05-2024 Erythrocyte distribution width (RBC) [Ratio] Erythrocyte distribution width [Ratio] by Automated count 11.9-15.3 [facility] Glucose [Mass/volume] in Ser um or PlasmaOrdered By: Sid Bo on 05-05-2024 Glucose [Mass/Vol] Glucose [Mass/volume ] in Serum or Plasma 70-100 [facility] Comment on above: ADA recommended refe rence rangeRandom Glucose Reference Range is dependent on time and content of last meal. Glucose of more than 200 mg/dL in a nonstressed, ambulatory subject supports the diagnosis of Diabetes Mellitus. Hematocrit Auto (Bld) [Volum e fraction]Ordered By: Sid Bo on 05-05-2024 Hematocrit (Bld) [Volume fraction] Hematocrit [Volume Fraction] of Blood by Automated count Low 34.0-46.4 [facility] Hemoglobin [Mass/volume] in BloodOrdered By: Sid Bo on 05-05-2024 Hemoglobin (Bld) [Mass/Vol] Hemoglobin [Mass/volume] in Blood Low 11.8-15.4 [facility] INR in Platelet poor plasma by Coagulation assayOrdered By: Sid Bo on 05-05-2024 INR Coag (PPP) [Relative time] INR in Platelet poor plasma by Coagulation assay [facility] Comment on above: INR [...] erythrocytes in Blood by Automated coun 3.8-11.6 [facility] Lymphocytes Auto (Bld) [#/Vo l]Ordered By: Sid Bo on 05-05-2024 Lymphocytes (Bld) [#/Vol] Lymphocytes [#/volume] in Blood by Automated count 1.00-4.8 [facility] Lymphocytes/100 WBC Auto (Bl d)Ordered By: Sid Bo on 05-05-2024 Lymphocytes/100 WBC (Bld) Lymphocytes/100 leukocytes in Blood by Automated count . [facility] MCH Auto (RBC) [Entitic mass ]Ordered By: Sid Bo on 05-05-2024 MCH (RBC) [Entitic mass] MCH [Entitic mass] by Automated count 24.7-34.3 [facility] MCHC Auto (RBC) [Mass/Vol]Or dered By: Sid Bo on 05-05-2024 MCHC (RBC) [Mass/Vol] MCHC [Mass/volume] by Automated count High 32.0-35.0 [facility] MCV Auto (RBC) [Entitic vol] Ordered By: Sid Bo on 05-05-2024 MCV (RBC) [Entitic vol] MCV [Entitic volume] by Automated count 80-100 [facility] Magnesiumon 05-05-2024 Magnesium [Mass/Vol] 1.7 mg/dL Low 1.9-2.7 [facility] Comment on above: Result Comment: PERF ORMED BY: [place] [address] PATHOLOGIST ALL SOURCE ANALYST SYLVIA ANDERSON M.D. Performed By: #### C EPHEID NEG, COVID19 FLU RSV, ADDONUAPLUS, UHCG #### [address] Magnesium [Mass/volume] in S luciana or PlasmaOrdered By: Sid Bo on 05-05-2024 Magnesium [Mass/Vol] Magnesium [Mass/vol ume] in Serum or Plasma Low 1.9-2.7 [facility] Monocyte distribution width [Entitic volume] in Blood by AutomatedOrdered By: Sid Bo on 05-05-2024 Monocyte distribution width Auto (Bld) [Entitic vol] Monocyte distribution width [Entitic volume] in Blood by Automated 0.00-20.00 [facility] Monocytes Auto (Bld) [#/Vol] Ordered By: Sid Bo on 05-05-2024 Monocytes (Bld) [#/Vol] Automated blood monocyte count 0.0-0.8 [facility] Monocytes/100 WBC Auto (Bld) Ordered By: Sid Bo on 05-05-2024 Monocytes/100 WBC (Bld) Automated monocyte % . [facility] Natriuretic peptide B [Mass/ Vol]Ordered By: Sid Bo on 05-05-2024 Natriuretic peptide B (Bld) [Mass/Vol] BNP ser/plas 5-100 [facility] Neutrophils Auto (Bld) [#/Vo l]Ordered By: Sid Bo on 05-05-2024 Neutrophils (Bld) [#/Vol] Neutrophils [#/volume] in Blood by Automated count High 1.8-7.7 [facility] Neutrophils/100 WBC Auto (Bl d)Ordered By: Sid Bo on 05-05-2024 Neutrophils/100 WBC (Bld) Automated neutrophil % . [facility] No Panel InformationOrdered By: Sid Bo on 05-05-2024 Estimated GFR (CKD-EPI) > 60.0 mL/Min [facility] Creatinine Clearance (Chem 143.84 [facility] Nucleated erythrocytes [Pres ence] in Blood by Automated countOrdered By: Sid Bo on 05-05-2024 Nucleated RBC Auto Ql (Bld) Nucleated erythrocytes [Presence] in Blood by Automated count 0-0.5 [facility] Platelet mean volume Auto (B ld) [Entitic vol]Ordered By: Sid Bo on 05-05-2024 Platelet mean volume (Bld) [Entitic vol] Platelet mean volume [Entitic volume] in Blood by Automated count 6.3-10.7 [facility] Platelets Auto (Bld) [#/Vol] Ordered By: Sid Bo on 05-05-2024 Platelets (Bld) [#/Vol] Platelets [#/volume] in Blood by Automated count 150-450 [facility] Potassium [Moles/volume] in Serum or PlasmaOrdered By: Sid Bo on 05-05-2024 Potassium [Moles/Vol] Potassium [Moles/v olume] in Serum or Plasma 3.5-5.1 [facility] Prothrombin Time INRon 01-20 -2025 INR Coag (PPP) [Relative time] 1.1 {INR} Normal [facility] Comment on above: Result Comment: [...] heart valves: 3 - 4.5 PERFORMED BY: [place] [address] PATHOLOGIST ALL SOURCE ANALYST SYLVIA ANDERSON M.D. Performed By: #### C EPHEID NEG, COVID19 FLU RSV, ADDONUAPLUS, UHCG #### [address] PT Coag (PPP) [Time] 12.6 s Normal 9.0-12.9 [facility] Comment on above: Result Comment: A matocrit value greater than 55% may lead to inaccurate results in coagulation testing. Patients having hematocrit values >55% require a special collection tube for coagulation studies. Please contact the laboratory at [phone] for redraw instructions. Performed By: #### C EPHEID NEG, COVID19 FLU RSV, ADDONUAPLUS, UHCG #### [address] Prothrombin time (PT)Ordered By: Sid Bo on 05-05-2024 PT Coag (PPP) [Time] Prothrombin time (PT) 9.0- 12.9 [facility] Comment on above: A hematocrit value g reater than 55% may lead to inaccurate results in coagulation testing. Patients having hematocrit values >55% require a special collection tube for coagulation studies. Please contact the laboratory at [phone] for redraw instructions. RBC Auto (Bld) [#/Vol]Ordere d By: Sid Bo on 05-05-2024 RBC (Bld) [#/Vol] Erythrocytes [#/volu me] in Blood by Automated count Low 3.60-5.00 [facility] Serum or plasma anion gap de terminationOrdered By: Sid Bo on 05-05-2024 Anion gap [Moles/Vol] Serum or plasma an ion gap determination 6.0-15.0 [facility] Sodium [Moles/volume] in Ser um or PlasmaOrdered By: Sid Bo on 05-05-2024 Sodium [Moles/Vol] Sodium [Moles/volume ] in Serum or Plasma Low 136-145 [facility] Troponin I High Sensitivityo n 05-05-2024 Troponin I High Sensitivity <3 Normal 0-15 [facility] Comment on above: Result Comment: The Troponin units of report have been changed to meet the Chest Pain Accreditation requirement, element EC5.M1l2. Troponin units are changed from pg/ml to ng/L. Also, the decimal is removed and results are in whole numbers. PERFORMED BY: [place] [address] PATHOLOGIST ALL SOURCE ANALYST SYLVIA ANDERSON M.D. Performed By: #### C EPHEID NEG, COVID19 FLU RSV, ADDONUAPLUS, UHCG #### [facility] [address] Troponin I.cardiac [Mass/vol ume] in Serum or Plasma by Detection limit <= 0.01 ng/Ordered By: Sid Bo on 05-05-2024 Troponin I.cardiac DL <= 0.01 ng/mL [Mass/Vol] Troponin I.cardiac [Mass/volume] in Serum or Plasma by Detection limit <= 0.01 ng/ 0-15 [facility] Comment on above: The Troponin units o f report have been changed to meet the Chest Pain Accreditation requirement, element EC5.M1l2. Troponin units are changed from pg/ml to ng/L. Also, the decimal is removed and results are in whole numbers. Urea nitrogen [Mass/volume] in Serum or PlasmaOrdered By: Sid Bo on 05-05-2024 Urea nitrogen [Mass/Vol] Urea nitrogen [Mass/volume] in Serum or Plasma 7-25 [facility] WBC Auto (Bld) [#/Vol]Ordere d By: Sid Bo on 05-05-2024 WBC (Bld) [#/Vol] Leukocytes [#/volume ] in Blood by Automated count 3.8-11.6 [facility] X-ray reportOrdered By: Antonio Hanson on 05-05-2024 [place] [address] XRay Report Signed Patient: Thuy Malik MR#: [id number] : 2005 Acct:[id number] Age/Sex: 18 / F ADM Date: 5 Loc: ER Room: Type: [facility] ER Attending Dr: Copies to: Sid Bo DO~ Ordering Provider: Sid Bo DO Date of Service: 05/05/24 XR/XR chest 1V portable: Dizziness SINGLE VIEW CHEST CLINICAL HISTORY: Dizziness with syncopal episodes. COMPARISON: None FINDINGS: Heart normal size. Lungs are clear. No free air. XR/XR chest 1V portable IMPRESSION: NO ACUTE FINDINGS Impression dictated by: Rony Hanson Jr., D.OElia05/05/2024 12:16 PM Dictation Location: [place] [address] Transcribed By: [facility] 05/05/24 1216 Dictated By: Rony Hanson Jr, DO 05/05/24 1216 Signed By: 05/05/24 1216 [facility] XR chest 1V portableon 05-05 XR chest 1V portable [place] [id number] XRay Report Signed Patient: Tuhy Malik MR#: [id number] 33 : 2005 Acct:[id number] Age/Sex: 18 / F ADM Date: 05/05/24 Loc: ER Room: Type: [facility] ER Attending Dr: Copies to: Sid Bo DO Ordering Provider: Sid Bo DO Date of Service: 05/05/24 XR/XR chest 1V portable: Dizziness SINGLE VIEW CHEST CLINICAL HISTORY: Dizziness with syncopal episodes. COMPARISON: None FINDINGS: Heart normal size. Lungs are clear. No free air. XR/XR chest 1V portable IMPRESSION: NO ACUTE FINDINGS Impression dictated by: Rony Hanson Jr., DEliaOElia05/05/2024 12:16 PM Dictation Location: [place] [address] Transcribed By: [facility] 05/05/241215 Dictated By: Rony Hanson Jr, DO 05/05/241215 Signed By: 05/05/241215 Normal [facility] Alanine aminotransferase [En zymatic activity/volume] in Serum or PlasmaOrdered By: Rodolfo Anthony on 04-27-2024 ALT [Catalytic activity/Vol] Alanine aminotransferase [Enzymatic activity/volume] in Serum or Plasma Low 7-52 [facility] Albumin [Mass/volume] in Ser um or Plasma by Bromocresol green (BCG) dye binding methoOrdered By: Rodolfo Anthony on 04-27-2024 Albumin BCG dye [Mass/Vol] Albumin [Mass/volume] in Serum or Plasma by Bromocresol green (BCG) dye binding metho 3.5-5.7 [facility] Alkaline phosphatase [Enzyma tic activity/volume] in Serum or PlasmaOrdered By: Rodolfo Anthony on 04-27-2024 ALP [Catalytic activity/Vol] Alkaline phosphatase [Enzymatic activity/volume] in Serum or Plasma 34-104 [facility] Appearance of UrineOrdered B y: Rodolfo Anthony on 04-27-2024 Appearance (U) Urine appearance Clear [facility] Aspartate aminotransferase [ Enzymatic activity/volume] in Serum or PlasmaOrdered By: Rodolfo Anthony on 04-27-2024 AST [Catalytic activity/Vol] Aspartate aminotransferase [Enzymatic activity/volume] in Serum or Plasma Low 13-39 [facility] Bacteria [Presence] in Urine by AutomatedOrdered By: Rodolfo Anthony on 04-27-2024 Bacteria Auto Ql (U) Bacteria [Presence] in Urine by Automated None Seen [facility] Basophils Auto (Bld) [#/Vol] Ordered By: Rodolfo Anthony on 04-27-2024 Basophils (Bld) [#/Vol] Automated basophil count 0.0-0.2 [facility] Basophils/100 WBC Auto (Bld) Ordered By: Rodolfo Anthony on 04-27-2024 Basophils/100 WBC (Bld) Automated basophil % . [facility] Bilirubin Test strip Ql (U)O rdered By: Rodolfo Anthony on 04-27-2024 Bilirubin Ql (U) Bilirubin.total [Pre sence] in Urine by Test strip Negative [facility] Bilirubin.total [Mass/volume ] in Serum or PlasmaOrdered By: Rodolfo Anthony on 04-27-2024 Bilirubin [Mass/Vol] Bilirubin.total [Mass/volume] in Serum or Plasma 0.3-1.0 [facility] COVID Cepheid NegativeOrdere d By: Rodolfo Anthony on 04-27-2024 SARS-CoV-2 (COVID-19) Ab IA Ql COVID Cepheid Negative [facility] Comment on above: This is a duplicate [...] or Cepheid Disclaimer revoked sooner. PERFORMED BY: [place] [address] PATHOLOGIST ALL SOURCE ANALYST SYLVIA ANDERSON M.D. Normal [facility] Comment on above: Performed By: #### C EPHEID NEG, COVID19 FLU RSV, ADDONUAPLUS, UHCG #### [address] Calcium [Mass/volume] in Ser um or PlasmaOrdered By: Rodolfo Anthony on 04-27-2024 Calcium [Mass/Vol] Calcium [Mass/volume ] in Serum or Plasma 8.6-10.3 [facility] Calcium oxalate crystals [Pr esence] in Urine by Computer assisted methodOrdered By: Rodolfo Anthony on 04-27-2024 Calcium oxalate crystals Computer assisted Ql (U) Calcium oxalate crystals [Presence] in Urine by Computer assisted method [facility] Carbon dioxide, total [Moles /volume] in Serum or PlasmaOrdered By: Rodolfo Anthony on 04-27-2024 CO2 [Moles/Vol] Carbon dioxide, tota l [Moles/volume] in Serum or Plasma 21.0-31.0 [facility] Cepheid COVID PCR Negativeon 04-27-2024 SARS-CoV-2 (COVID-19) RNA ANUP+probe Ql (Unsp spec) Negative Normal Negative [facility] Comment on above: Result Comment: This is a duplicate Cepheid Xpert Xpress CoV-2/Flu/RSV Plus RNA by RT-PCR result to be used for statistical tracking purpose only. PERFORMED BY: [place] [address] PATHOLOGIST ALL SOURCE ANALYST SYLVIA ANDERSON M.D. Performed By: #### C EPHEID NEG, COVID19 FLU RSV, ADDONUAPLUS, UHCG #### [address] Chloride [Moles/volume] in S luciana or PlasmaOrdered By: Rodolfo Anthony on 04-27-2024 Chloride [Moles/Vol] Chloride [Moles/vol ume] in Serum or Plasma 98-107 [facility] Color Auto (U)Ordered By: Galina Anthony on 04-27-2024 Color (U) Color of Urine by Auto [facility] Count Auto Di ffon 04-27-2024 Basophils (Bld) [#/Vol] 0.1 10*3/uL Normal 0.0-0.2 [facility] Comment on above: Result Comment: PERF ORMED BY: [place] [address] PATHOLOGIST ALL SOURCE ANALYST SYLVIA ANDERSON M.D. Performed By: #### C BC, CMP #### [address] Basophils/100 WBC (Bld) 0.6 % Normal . [facility] Comment on above: Performed By: #### C BC, CMP #### [facility] [address] [place] [address] [place] Eosinophils (Bld) [#/Vol] 0.1 10*3/uL Normal 0.0-0.45 [facility] Comment on above: Performed By: #### C BC, CMP #### [facility] [address] [place] [address] [place] Eosinophils/100 WBC (Bld) 0.9 % Normal . [facility] Comment on above: Performed By: #### C BC, CMP #### [address] Erythrocyte distribution width (RBC) [Ratio] 12.8 % Normal 11.9-15.3 [facility] Comment on above: Performed By: #### C BC, CMP #### [address] Hematocrit (Bld) [Volume fraction] 32.0 % Low 34.0-46.4 [facility] Comment on above: Performed By: #### C BC, CMP #### [address] Hemoglobin (Bld) [Mass/Vol] 11.4 g/dL Low 11.8-15.4 [facility] Comment on above: Performed By: #### C BC, CMP #### [address] Lymphocytes (Bld) [#/Vol] 1.7 10*3/uL Normal 1.00-4.8 [facility] Comment on above: Performed By: #### C BC, CMP #### [place] [address] [place] Lymphocytes/100 WBC (Bld) 19.5 % Normal . [facility] Comment on above: Performed By: #### C BC, CMP #### [address] MCH (RBC) [Entitic mass] 33.8 pg Normal 24.7-34.3 [facility] Comment on above: Performed By: #### C BC, CMP #### [address] MCV (RBC) [Entitic vol] 94.4 fL Normal 80-100 [facility] Comment on above: Performed By: #### C BC, CMP #### [address] Mean Corpuscular HGB Conc 35.7 g/dL High 32.0-35.0 [facility] Comment on above: Performed By: #### C BC, CMP #### [address] Monocytes (Bld) [#/Vol] 0.8 10*3/uL Normal 0.0-0.8 [facility] Comment on above: Performed By: #### C BC, CMP #### [facility] [address] [place] [id number] [place] Monocytes/100 WBC (Bld) 19.80 % Normal 0.00-20.00 [facility] Comment on above: Performed By: #### C BC, CMP #### [place] [id number] [place] Monocytes/100 WBC (Bld) 9.0 % Normal . [facility] Comment on above: Performed By: #### C BC, CMP #### [place] [address] [place] Neutrophils (Bld) [#/Vol] 6.2 10*3/uL Normal 1.8-7.7 [facility] Comment on above: Performed By: #### C BC, CMP #### [address] Neutrophils/100 WBC (Bld) 70.0 % Normal . [facility] Comment on above: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 Yellow [facility] Comment on above: Order Comment: Comme nt s/s of acute impairment Performed By: #### U A, OBUDS #### [facility] [address] Complete Blood Count Auto Di ffon 12-03-2023 Mean Corpuscular HGB Conc 34.1 g/dL Normal 32.0-35.0 [facility] Comment on above: Performed By: #### C BC #### [facility] [address] Monocytes/100 WBC (Bld) 18.17 % Normal 0.00-20.00 [facility] Comment on above: Performed By: #### C BC #### [address] NRBC% 0.1 /100{WBC} Normal 0-0.5 [facility] Comment on above: Performed By: #### C BC #### [address] Creatinine [Mass/volume] in Serum or PlasmaOrdered By: Aldair Sandra on 12-03-2023 Creatinine [Mass/Vol] 0.77 mg/dL Normal 0.60-1.20 [facility] Comment on above: Performed By: #### C BC #### [address] Dipstick and Microscopicon 0 12-03-2023 Bacteria,Urine 1+ High None Seen [facility] Comment on above: Order Comment: Comme nt s/s of acute impairment Performed By: #### U A, OBUDS #### [place] [address] [place] Bilirubin,Urine Negative Normal Negative [facility] Comment on above: Order Comment: Comme nt s/s of acute impairment Performed By: #### U A, OBUDS #### [address] Calcium Oxalate Crystals,Urine 1+ Normal [facility] Comment on above: Order Comment: Comme nt s/s of acute impairment Performed By: #### U A, OBUDS #### [place] [address] [place] Glucose Ql (U) 30 mg/dL High Normal [facility] Comment on above: Order Comment: Comme nt s/s of acute impairment Performed By: #### U A, OBUDS #### [facility] [address] [place] [address] Hyaline Casts,Urine None Seen Normal 0-1 [facility] Comment on above: Order Comment: Comme nt s/s of acute impairment Performed By: #### U A, OBUDS #### [facility] [address] [place] [address] Mucus,Urine 3+ Critically abnormal [facility] Comment on above: Order Comment: Comme nt s/s of acute impairment Performed By: #### U A, OBUDS #### [address] Nitrite,Urine Negative Normal Negative [facility] Comment on above: Order Comment: Comme nt s/s of acute impairment Performed By: #### U A, OBUDS #### [address] Occult Blood,Urine 3+ High Negative [facility] Comment on above: Order Comment: Comme nt s/s of acute impairment Performed By: #### U A, OBUDS #### [address] RBC,Urine 5-9 High 0-4 [facility] Comment on above: Order Comment: Comme nt s/s of acute impairment Performed By: #### U A, OBUDS #### [address] Specificy Leiter,Urine 1.034 High 1.001-1.03 0 [facility] Comment on above: Order Comment: Comme nt s/s of acute impairment Performed By: #### U A, OBUDS #### [address] Squamous Epithelial Cell,Urine 3-4 High 0-2 [facility] Comment on above: Order Comment: Comme nt s/s of acute impairment Performed By: #### U A, OBUDS #### [address] Urobilinogen,Urine 2 mg/dL High Normal [facility] Comment on above: Order Comment: Comme nt s/s of acute impairment Performed By: #### U A, OBUDS #### [address] WBC,Urine 5-9 High 0-4 [facility] Comment on above: Order Comment: Comme nt s/s of acute impairment Performed By: #### U A, OBUDS #### [place] [address] [place] Drug Screen,Urineon 12-03-19 Amphetamine Screen,Urine Negative Normal Negative [facility] Comment on above: Performed By: #### U RDS #### [address] Barbiturate Screen,Urine Negative Normal Negative [facility] Comment on above: Performed By: #### U RDS #### [address] Benzodiazepines Screen,Urine Negative Normal Negative [facility] Comment on above: Performed By: #### U RDS #### [address] Cannabinoid Screen,Urine Positive High Negative [facility] Comment on above: Result Comment: Thes e are unconfirmed results and should not be used for legal purposes. Drug Cut-Off Concentration: AMPH 1000 ng/mL NIKKI 200 ng/mL CHENG 200 ng/mL COCM 300 ng/mL OP 300 ng/mL PCP 25 ng/mL THC 20 ng/mL PERFORMED BY: [place] [address] PATHOLOGIST ALL SOURCE ANALYST ROBERT PRADHAN M.D. Performed By: #### U RDS #### [place] [address] [place] Cocaine Screen,Urine Negative Normal Negative [facility] Comment on above: Performed By: #### U RDS #### [place] [address] [place] Opiate Screen,Urine Negative Normal Negative [facility] Comment on above: Performed By: #### U RDS #### [facility] [address] [place] [address] Phencyclidine Screen,Urine Negative Normal Negative [facility] Comment on above: Performed By: #### U RDS #### [facility] [address] [place] [address] ECG 12 lead ECGon 12-03-2023 ECG 12 lead ECG [facility] [place] [address] [place] [address] Electrocardiograph Report Signed Patient: Thuy Malik MR#: [id number] 33 : 2005 Acct:[id number] Age/Sex: 18 / F ADM Date: 12/03/23 Loc: ER Room: Type: [facility] ER Attending Dr: Ordering Provider: Aldair Sandra [...] Nevaeh Fernandez MD 12/03/23 1526 Normal [facility] Epithelial cells.squamous [# /area] in Urine sediment by Microscopy high power fieldOrdered By: Aldair Sandra on 12-03-2023 Epithelial cells.squamous LM.HPF (Urine sed) [#/Area] 3-4 [HPF] High 0-2 [facility] Erythrocyte distribution wid th [Ratio] by Automated countOrdered By: Aldair Sandra on 12-03-2023 Erythrocyte distribution width (RBC) [Ratio] 13.2 % Normal 11.9-15.3 [facility] Comment on above: Performed By: #### C BC #### [facility] [address] [place] [id number] [place] Erythrocytes [#/area] in Uri ne sediment by Microscopy high power fieldOrdered By: Aldair Sandra on 12-03-2023 RBC LM.HPF (Urine sed) [#/Area] 5-9 [HPF] High 0-4 [facility] Erythrocytes [#/volume] in B lood by Automated countOrdered By: Aldair Sandra on 12-03-2023 RBC (Bld) [#/Vol] 4.33 10*6/uL Normal 3.60-5.00 [facility] Comment on above: Performed By: #### C BC #### [facility] [address] [place] [address] [place] Glucose [Mass/volume] in Ser um or PlasmaOrdered By: Aldair Sandra on 12-03-2023 Glucose [Mass/Vol] 126 mg/dL High 70-100 [facility] Comment on above: ADA recommended refe rence rangeRandom Glucose Reference Range is dependent on time and content of last meal. Glucose of more than 200 mg/dL in a nonstressed, ambulatory subject supports the diagnosis of Diabetes Mellitus. Result Comment: [place] om Glucose Reference Range is dependent on time and content of last meal. Glucose of more than 200 mg/dL in a nonstressed, ambulatory subject supports the diagnosis of Diabetes Mellitus. ADA recommended reference range Performed By: #### C BC #### [facility] [address] [place] [id number] [place] Glucose [Mass/volume] in Uri ne by Test stripOrdered By: Aldair Sandra on 12-03-2023 Glucose Test strip (U) [Mass/Vol] 30 mg/dL High Normal [facility] HCG ( test) IA.rapi d Ql (U)Ordered By: Aldair Sandra on 12-03-2023 HCG ( test) Ql (U) Negative [facility] HCG,Urineon 12-03-2023 Beta HCG ( test) Ql (U) Negative Normal [facility] Comment on above: Order Comment: Comme nt s/s of acute impairment Result Comment: PERF ORMED BY: [place] [address] PATHOLOGIST ALL SOURCE ANALYST ROBERT PRADHAN M.D. Performed By: #### U ANETA Lynn #### [address] Hematocrit [Volume Fraction] of Blood by Automated countOrdered By: Aldair Sandra on 12-03-2023 Hematocrit (Bld) [Volume fraction] 40.1 % Normal 34.0-46.4 [facility] Comment on above: Performed By: #### C BC #### [address] Hemoglobin Test strip Ql (U) Ordered By: Aldair Sandra on 12-03-2023 Hemoglobin Ql (U) 3+ High Negative [facility] Hemoglobin [Mass/volume] in BloodOrdered By: Aldair Sandra on 12-03-2023 Hemoglobin (Bld) [Mass/Vol] 13.6 g/dL Normal 11.8-15.4 [facility] Comment on above: Performed By: #### C BC #### [address] Hepatic Panelon 12-03-2023 Albumin [Mass/Vol] 4.3 g/dL Normal 3.5-5.7 [facility] Comment on above: Performed By: #### C BC #### [address] Bilirubin,Indirect 0.7 mg/dL Normal [facility] Comment on above: Performed By: #### C BC #### [address] Bilirubin.indirect [Mass/Vol] 0.10 mg/dL Normal 0.03-0.18 [facility] Comment on above: Performed By: #### C BC #### [address] Hyaline casts LM.LPF (Urine sed) [#/Area]Ordered By: Aldair Sandra on 12-03-2023 Hyaline casts (Urine sed) [#/Area] None seen [LPF] 0-1 [facility] Ketones [Presence] in Urine by Test stripOrdered By: Aldair Sandra on 12-03-2023 Ketones Ql (U) 2+ High Negative [facility] Comment on above: Order Comment: Comme nt s/s of acute impairment Performed By: #### U A, OBUDS #### [facility] [address] Leukocyte esterase [Presence ] in Urine by Test stripOrdered By: Aldair Sandra on 12-03-2023 Leukocyte esterase Test strip Ql (U) 2+ High Negative [facility] Comment on above: Order Comment: Comme nt s/s of acute impairment Performed By: #### U A, OBUDS #### [facility] [address] [place] [address] [place] Leukocytes [#/area] in Urine sediment by [...] WBC (Bld) [#/Vol] 13.8 10*3/uL High 3.8-11.6 [facility] Comment on above: Performed By: #### C BC #### [facility] [address] [place] [address] [place] Lipase [Enzymatic activity/v olume] in Serum or PlasmaOrdered By: Aldair Sandra on 12-03-2023 Lipase [Catalytic activity/Vol] 14.0 U/L Normal 11.0-82.0 [facility] Comment on above: Result Comment: PERF ORMED BY: [address] [place] [address] PATHOLOGIST ALL SOURCE ANALYST ROBERT PRADHAN M.D. Performed By: #### C BC #### [address] Lymphocytes [#/volume] in Bl ood by Automated countOrdered By: Aldair Sandra on 12-03-2023 Lymphocytes (Bld) [#/Vol] 2.8 10*3/uL Normal 1.00-4.8 [facility] Comment on above: Performed By: #### C BC #### [address] Lymphocytes/100 leukocytes i n Blood by Automated countOrdered By: Aldair Sandra on 12-03-2023 Lymphocytes/100 WBC (Bld) 20.0 % Normal . [facility] Comment on above: Performed By: #### C BC #### [address] MCH [Entitic mass] by Automa boris countOrdered By: Aldair Sandra on 12-03-2023 MCH (RBC) [Entitic mass] 31.5 pg Normal 24.7-34.3 [facility] Comment on above: Performed By: #### C BC #### [address] MCHC Auto (RBC) [Mass/Vol]Or dered By: Aldair Sandra on 12-03-2023 MCHC (RBC) [Mass/Vol] 34.1 g/dL 32.0-35.0 [facility] MCV [Entitic volume] by Auto mated countOrdered By: Aldair Sandra on 12-03-2023 MCV (RBC) [Entitic vol] 92.5 fL Normal 80-100 [facility] Comment on above: Performed By: #### C BC #### [address] Monocyte distribution width [Entitic volume] in Blood by AutomatedOrdered By: Aldair Sandra on 12-03-2023 Monocyte distribution width Auto (Bld) [Entitic vol] 18.17 % 0.00-20.00 [facility] Mucus LM Ql (Urine sed)Order ed By: Aldair Sandra on 12-03-2023 Mucus Ql (Urine sed) 3+ [LPF] Abnormal [facility] Neutrophils [#/volume] in Bl ood by Automated countOrdered By: Aldair Sandra on 12-03-2023 Neutrophils (Bld) [#/Vol] 10.0 10*3/uL High 1.8-7.7 [facility] Comment on above: Performed By: #### C BC #### [facility] [address] Nitrite Test strip Ql (U)Ord ered [...] 12-03-2023 Opiates Screen Ql (U) Negative Negative [facility] Phencyclidine Screen Ql (U)O rdered By: Aldair Sandra on 12-03-2023 Phencyclidine Ql (U) Negative Negative [facility] Platelet mean volume [Entiti c volume] in Blood by Automated countOrdered By: Aldair Sandra on 12-03-2023 Platelet mean volume (Bld) [Entitic vol] 10.4 fL Normal 6.3-10.7 [facility] Comment on above: Performed By: #### C BC #### [facility] [address] [place] [address] [place] Platelets [#/volume] in Bloo d by Automated countOrdered By: Aldair Sandra on 12-03-2023 Platelets (Bld) [#/Vol] 240 10*3/uL Normal 150-450 [facility] Comment on above: Performed By: #### C BC #### [facility] [address] [place] [address] [place] Potassium [Moles/volume] in Serum or PlasmaOrdered By: Aldair Sandra on 12-03-2023 Potassium [Moles/Vol] 3.5 mmol/L Normal 3.5-5.1 [facility] Comment on above: Performed By: #### C BC #### [facility] [address] Protein [Mass/volume] in Ser um or PlasmaOrdered By: Aldair Sandra on 12-03-2023 Protein [Mass/Vol] 6.7 g/dL Normal 6.4-8.9 [facility] Comment on above: Performed By: #### C BC #### [address] Protein [Mass/volume] in Uri ne by Test stripOrdered By: Aldair Sandra on 12-03-2023 Protein (U) [Mass/Vol] 30 mg/dL High Negative [facility] Comment on above: Order Comment: Comme nt s/s of acute impairment Performed By: #### U A, OBUDS #### [address] Serum globulin measurement b y calculation (mass/volume)Ordered By: Aldair Sandra on 12-03-2023 Globulin (S) [Mass/Vol] 2.4 g/dL [facility] Comment on above: Performed By: #### C BC #### [address] Serum or plasma albumin/glob ulin mass ratioOrdered By: Aldair Sandra on 12-03-2023 Albumin/Globulin [Mass ratio] 1.8 {ratio} [facility] Comment on above: Performed By: #### C BC #### [address] Serum or plasma anion gap de terminationOrdered By: Aldair Sandra on 12-03-2023 Anion gap [Moles/Vol] 15.1 mmol/L High 6.0-15.0 [facility] Comment on above: Performed By: #### C BC #### [place] [id number] [place] Serum or plasma non-glucuron idated bilirubin measurement (mass/volume)Ordered By: Aldair Sandra on 12-03-2023 Bilirubin.indirect [Mass/Vol] 0.7 mg/dL [facility] Sodium [Moles/volume] in Ser um or PlasmaOrdered By: Aldair Sandra on 12-03-2023 Sodium [Moles/Vol] 138 mmol/L Normal 136-145 [facility] Comment on above: Performed By: #### C BC #### [address] Specific gravity Test strip (U) [Rel density]Ordered By: Aldair Sandra on 12-03-2023 Specific gravity (U) [Rel density] 1.034 High 1.001-1.03 0 [facility] Urea nitrogen [Mass/volume] in Serum or PlasmaOrdered By: Aldair Sandra on 12-03-2023 Urea nitrogen [Mass/Vol] 12 mg/dL Normal 7-25 [facility] Comment on above: Performed By: #### C BC #### [address] Urine Cultureon 12-03-2023 Bacteria identified Cx Nom (U) 20,000 colonies/ml mixed bacterial skin contaminants 2 Days PERFORMED BY: [place] [address] PATHOLOGIST ALL SOURCE ANALYST ROBERT PRADHAN M.D. Normal [facility] Comment on above: Performed By: #### U A, OBUDS #### [address] Urine appearanceOrdered By: Aldair Sandra on 12-03-2023 Appearance (U) Cloudy Critically abnormal Clear [facility] Comment on above: Order Comment: Comme nt s/s of acute impairment Performed By: #### U A, OBUDS #### [address] Urobilinogen Test strip (U) [Mass/Vol]Ordered By: Aldair Sandra on 12-03-2023 Urobilinogen (U) [Mass/Vol] 2 mg/dL High Normal [facility] pH of Urine by Test stripOrd ered By: Aldair Sandra on 12-03-2023 pH (U) 5.5 [pH] Normal 5.0-9.0 [facility] Comment on above: Order Comment: Comme nt s/s of acute impairment Performed By: #### U A, OBUDS #### [address] Coding Summary.on 10-03-2023 Coding Summary. QBEINxdw32TWj7eAh+PG hlYWQ+ UU9GXEJzB93wcVTjnA9mC8NWHS kTQqpvFTXPAUjRGnWwmrJhTN2d aXNjZXJu IC8+HI4wBZVrSuvpcYJui6W4xO M4G28gvy5bMZoyyCL4JLMmPhFn hulbo4ahiYl0IPbeJymbAhCm GQZvhI81RRR5nM92Pd79qHOxxZ Ccf5nnrVh1FhXfOFYzAVY0nDld IRpwl1JcEKMkW58jpRXyf9A5 SVMhtDwjaMVdCyGemCO1eS0gZA dkimvrk1xvidltVsf9rx75lZRn o3E7kDF6T8HwesK7TCMgzPNe VqmwlAQStH9iqbaul1vafwhhGt BoKIBnGGf1QKa7OPBkxDejOfWw NJ78KJX2CYEuofVwV6QhWMCx nFoqLeO3b1E2Wj5HE9ZVWlevG8 VNTUFSWTwvdGQ+WM29bg52F9Xs NgjyXdo1DRFvITT0xNA8gG1x SFMvBGudz2O9rFO3B6RhjnIvvu 8yn9vrBXVlSZydN66igVYfz1M2 ATEuxLQ0YTHyyRimLwAkjX03 Oyc+TFVbdYsao3IfZlbmz0twe7 xrvTs1AkfeHBOeufKohGwoNKM6 l1HrRw1tIEYqgBO1uJB5fU4m MiEeDeW9GRhlG112IrMtrJHrPm opK47kM9TrjLS+YDBsUyd1SHHx mEroWT4hI4GrQRAdvgeokQXa zAbqUG8uAMFrxvojCIQxfK0xBR BzV3k8TrElGcD8HFbgF9HoCWLn nvjrAc27rP8qOgOgTqM1AUyw D0JcgrI6DEQfcWUuFUdqAYD4K8 8oq5G1SXYuMCHePMU1cUH1eP5t bGlnbjogbGVmdDsgdmVydGlj IUckNSizX921YDUykYeoOfJiXO luZyBEYXRlOiAgMDYvMTkvMjAy NDwvdGQ+XKAlIXD1ePzlZMBk xYUnHYuhKv3pjXrjiIdpXQ9yEW XiusfzDIYomN9hARDntUSwdAou SM6tVVWicslfx136TnFiGMI0 OOCfsHNkR4XtoK4rQtGiCFZjTU BzK8FwmNFwCCwcM295TBstQrE3 MMMzovVrI9LfXCVjlFkpEwV0 y6D2Nw7Up8ZubdiwF8GkoMCpSt JuRuphYAr7B4PqNceftCD+PC90 YCDoZK32VOz5CBP5eVtpYJzc LPUpP1WxyU0kXkItOKNyOUTyZn c+PHRhYmxlIHdpZHRoPScxMDAl WlNzdNaoXU6wQb0wWOAsQKSs kCaxyXIdJgRlq9cjUUOwGWbhRW 1fvPefO3CjlIY4IQNjr9l7Km70 E17nP9XhbJA+TFDqcDB8sSL2 sB5pSlYnRrO8VGziL882IrKxiE EuQknen7ydq3wkpKw3NtW1VERa icXxwJmlBJD7l5VsUq65R53s IHdpZHRoPSIxNSUiIHZhbGlnbj 2rrO3zZb9+XOHuuEP7bMB1hR4u SbXmXoW8WEyoU481MqDixIAb Mgyts5pey4vnmTa2CrBbCZCczc UddFciCOL4s7PbNr59H7CdeGmd o3VpVqg3nn57dCAjq1A8jTP4 J0KyLYMdkjrhuQPlbIbuCL4zAO ShcocpRVHjtD7cLERbQ0n2CgSl SgC3OOegC4JespR4ZFNxpFFd XIThrZJTrM5zzfflx7hszaxdLk IvYAOzOCy9CTp8ZCVggRyfQjSo LOT8PoC0MAP0vUCvsV6meDvj qczgfI5cLte+EIA6eMQwsKJHOS 1lOjwvdGQ+TKJqAOC7uSsuDQdk WHSxrK8qDRBjL4a1BqFlBdS5 WPisG8HfjlY3SUCjrFVvRONjdG GBrQ0agtgjw1ojvsejGdQwVDLz RRb0AEf4NRKisDirVaDoREG6 OnN3ZAN7pKZkrA4bpXnwyrqefY 9wOyc+BzihoMarJUS1KZt4Z4Yd Djp5TDKpjZmpQX4vkKOvRBxl Pe4roSealJsoHF3qLZQgxwvog5 31DwVby0hsHLChhWNsLPdnOTT9 C37na7W6BBUyIJJnLVQ0hKG7 bH0wsZnlwoggkRLopEvrmzCakL eiZDhhSJjbQ348WMDqhKdzFnTv NJg2V5VxGcq2GBBoiSwpLL8q nJCuHYzmXz1xlGcifDkiTA7hSY Kfiolbt845AzFni3zoXSSriKJz OVtyFEX6K34sa1H6CLUhQNSi MNZ3gMS5xH5tkWvrlkwrkLTogM htgeIwvUkfRSkyHBowZ178UUEf hPhqHoPjvRl7Q8NeIhp2WLMl jZxkYS0qyGKaOCgkPz2ibEsuyQ xiKG9lAXUpxaqin530BeHil8kj HNUoiBFrYKnkGLK7N39uy7U7 DTRjPTLcNYL2tUE3kJ5kdYmkfd ogbGVmdDsgdmVydGljYWwtYWxp V621GGSdmNdtOxNtzNlrinCt OPyaUWy0G4EyVtkvxDU+PC90YW AkFV85iTNplVPxo1ulgPh1IyEx NXXnPZF8wBlzLOcpg4KsZMCf S67ewRPxu2J0MCGhuBhtqXVqJr EabHE3aM8pCZmkqcjqr2akzepy Ohnyw1flfs33rZ41X30hHAhs GKNzHEHyUJTsVPNeqKfdxd5quL 9wIi8+EUZmrGE9sYZ2zQ4xZONg SdB7XIcoV624LbYxpVHbDkuz q1scl9abiCk6XrX7ZYOopfDruI bpZGR7v8KmXu53P15xVWoyPPKm UZOaEVBcKPIkjVxhow3epE0e Ii8+OZKbtAT1yJM6mC3vGmWlMh Q3GQchN953BjNgqFOxNxpfM14o E0SipFI+EWFaTqj0ZRNpeBmp II6aqKZmDWjmEc4dKIZ6ShGfCz IcLLzwX6WbDEKstpkzpkhlfZD9 TKBuRBWsjL59Pv2xmCteTPRk lSMGoA9euwzdw1dwfdeyEsTwWV GyNRe7CIm0SPUbzWlsNwYxARP1 TbN8HEQ3lIZvwO9quRcvyuix rS0mO6OkTGSxjmjxHu26rB7aCn OqArW0VLacPkh+P0aOV37CLIXW PIdIFHRQGC74QA05tLKvt3L4 hJC0Z6RvDSHpffbuyuukbBI0PY DcBRCgbL05cRBuSUebSs2zn8O4 f498RSJcYTYbxR24Lv1fvJeo FQWduCHKhW6jcuzmf7dqbuzvAz ZwXMKiUWq0ZYw4PQCjnZykCbGv PVD3UyA9JJY5yGDdgL4qbDre xpykoY5yQfx+MDIvMjYvMjAwND wvdGQ+LQUbUTW9gTsvDPqqEGQs sT5zUKUrJ6d2QcWzDgX5ZRgg J2PyDCNutlstLy40bV8hJbVtSc Z5JPkxH4XngfT1CHXvxJRaIUfu PKF9H82jq7Z1WDEdMRGiCED3 hIE1nP9uhIxwdvxttSCexFmmwm OstFpxNHplGWxwU749MSObsBtq JfNdYMllQRXzKT25SH37dJIc a6Q4qHY9D8MuYINiegjfpcbeqK T6FUUnCPNazT24zUEkZHbjPi8q y8H2n739ABUoOGZyoU62Pn7k jPeiJZKttMUXtB1ebgydo0eukj idDbDzYCMfUIv5VOo3XUMzfWtt OvGzFHZ7OnU0DKP9oUHujS1a nZczbsluxK7jCtw+RmVtYWxlPC 54MQ11zSAuc6Y4kQZ6E3TsJPRm zoxhlahdzMM7KRRzFMWloE94 cBMwDGjkLt6tf2C5s037ENBrYX NebL24Mb6jrIunFOVbuRZPhR2g fputy0cagaxxShGiFESdEXv6 HKh0LSXogEmqDgEoBJG1PpG1WS D4vLGbaH7oiImtjhuchQ1hWus+ VK3wnwgsjaK6VF17DR51J0Oq PjwvdGFibGU+PHRhYmxlIHdpZH UiOEqjUAZfMlKcsUlpWO4uBr6n WANlPHAnhFrdiBFlUaYaz0ta YIHlCEwwIW9npCeyC8TvnDR0TU Xwi0e6Gn84G94bF8ZysSS+PGNv iRQ7wNT6eN8kTkTvOiI3PGtf R325KaOfcUWcHlwlh7yxu1fmqO a1ZwXsGWVwiwAbjPdvLWK2m7Uo Io38H66kFQxcKUBaEPTrGPNg EKLtxFbwji4maC1dYc9+PGNvbC U5wKX3eM5mYhIzWoP7WAyjI532 UrLgyKTgCpdlD76aE0QxhJH+ YLXvYsw8USAiuQiaIE4wrBXvCQ mqRu0oOPZ3MpClXdTgGSnhO7Hv EENxzwbejnypbPQ8NMHjVXSg bW07Vo1kyGwpEq8zKPKrMAE3IF FqrCYgH8DtkT1yBfKjQNZtPHRm J1XfeZZmFCekQ795UDhiTmE9 ZPOqorFnE0YrGMArnQltDfV2b9 P0Qc6OhQjeaJSrUX6xWmTtMWe5 R3HgJub3ONDpwHoaSP1qjDPz HAfwTl1guNegdTchTK9tNAZehi fjt477FvWle8vvMSMufQYgGRuw CUT7Y52yk6C8CVUeKMRvNTV7 iDF5qR9kxNuxbadqtJBagAfort MexEiiHLjdAKavE971RGQueYqe QnKPNdp6H5IyVcb9OSAapJjx ZZ4cxKEnUFlqAf6urYpsbYfkQG 7nKQXnpgtxe392OpAua1uyVNBu mOJiIConPKP5C29yt9E0ELEu YLAePOI6lQS3fI2pdBbjyylqmB PkbQlmytStsUpuYWdfIFpcK294 HQXfmHqiCt2OZfe1B8QoCqo6 LVNbzSdgLC3kgJIhCGboWn8nxA xodEvsKX3pOQUkqnlxj591QzCo q0abPQTaoNZaUPkmCCF8S14f a2Y2UYXaYPIsTZM1rJZ1kR1vqO lnbjogbGVmdDsgdmVydGljYWwt SQjkL469AQYfwWeaQxNhqPVv OjwvdGQ+UP70ib58R8JdCykxKl s4LHAiUKL4bSB5tO2aFUOgTUub t8V4rYI0S5CfzeXdcv4yr5ug TVEvQAptC91ux (more content not included)... Normal [facility] CT Abdomen/Pelvis w/ Contras ton [...] Oral contrast amount in ml's: 0 Normal [facility] Discharge Instructionson Discharge Instructions [id number] Normal [facility] ED Note-Physicianon 10-01-19 ED Note-Physician [...] as well. Reports surgery was done at [facility]. Denies any fever or chills. [...] Medications Administered Given GenDil 100 mL + clxk34QEV [F] 1000 mg, IV Piggyback NS 1000 ml Bolus, 1000 mL, IV ondansetron 4 mg/2 mL Inj, 4 mg, IV Push Disposition Plan Patient Discharge Condition stable Discharge Disposition to home Discharge Prescription List Prescriptions No active prescription medications Follow-up With When Contact Information ALLI CINDI In 3 days 10/03/2023 EDT [address] [place] [address] Business (1) Additional Instructions: Call Dr for diagnosis based follow up Patient Education Constipation, Adult, Mmhv-je-Ngeg Abdominal Pain, Adult Attestation Patient seen and evaluated by the physician wily (more content not included)... Normal [facility] Comment on above: Result Comment: Elec tronically Signed By: Dalton Padilla PA-C\.br\Date and Time Signed: 09/30/23 22:56 EDT\.br\Electronically Co-Signed By: Dino Mccollum DO.br\Date and Time Co-Signed: 10/01/23 01:46 EDT B hCG Qualon 09-30-2023 Beta HCG ( test) Ql Negative Normal [facility] Comment on above: Performed By: #### 2 [id number] #### [facility] [address] [place], [place] [id number] BMPon 09-30-2023 Anion gap [Moles/Vol] 10 mmol/L Normal 6-16 [facility] Comment on above: Performed By: #### 2 [id number] #### [facility] [address] [place] [address] Calcium [Mass/Vol] 8.9 mg/dL Normal 8.9-11.1 [facility] Comment on above: Performed By: #### 2 [id number] #### [facility] [address] [place] [address] Chloride [Moles/Vol] 110 mmol/L Normal 101-111 [facility] Comment on above: Performed By: #### 2 [id number] #### [facility] [address] [place] [address] CO2 [Moles/Vol] 22 mmol/L Normal 21-31 [facility] Comment on above: Performed By: #### 2 [id number] #### [facility] [address] [place] [address] Creatinine [Mass/Vol] 0.7 mg/dL Normal 0.5-1.3 [facility] Comment on above: Performed By: #### 2 [id number] #### [facility] [address] [place] [address] Glucose [Mass/Vol] 100 mg/dL Normal 55-199 [facility] Comment on above: Performed By: #### 2 [id number] #### [facility] [address] [place] [address] Potassium [Moles/Vol] 4.0 mmol/L Normal 3.5-5.3 [facility] Comment on above: Performed By: #### 2 [id number] #### [facility] [address] [place] [address] Sodium [Moles/Vol] 138 mmol/L Normal 135-145 [facility] Comment on above: Performed By: #### 2 [id number] #### [facility] [address] [place] [address] Urea nitrogen [Mass/Vol] 10 mg/dL Normal 5-21 [facility] Comment on above: Performed By: #### 2 [id number] #### [facility] [address] [place] [address] Urea nitrogen/Creatinine [Mass ratio] 14 No Units Normal 10-20 [facility] Comment on above: Performed By: #### 2 [id number] #### [facility] [address] [place] [address] CBC w/ Auto Diffon 4 Basophils/100 WBC (Bld) 1.2 % Normal 0.0-2.0 [facility] Comment on above: Performed By: #### 2 [id number] #### [facility] [address] [place] [address] Basophils/Leukocytes Auto (Bld) [Pure # fraction] 0.1 E9/L Normal 0.0-0.2 [facility] Comment on above: Performed By: #### 2 [id number] #### [facility] [address] [place] [address] Eosinophils (Bld) [#/Vol] 0.3 E9/L Normal 0.0-0.5 [facility] Comment on above: Performed By: #### 2 [id number] #### [facility] [address] [place] [address] Eosinophils/100 WBC (Bld) 4.3 % Normal 0.0-8.0 [facility] Comment on above: Performed By: #### 2 075020 #### [facility] [address] [place] [address] Erythrocyte distribution width (RBC) [Ratio] 13.8 % Normal 10.9-14.2 [facility] Comment on above: Performed By: #### 2 750388 #### [facility] [address] [place] [address] Hematocrit (Bld) [Volume fraction] 33.8 % Low 34.0-46.0 [facility] Comment on above: Performed By: #### 2 [id number] #### [facility] [address] [place] [address] Hemoglobin (Bld) [Mass/Vol] 12.1 g/dL Normal 12.0-16.0 [facility] Comment on above: Performed By: #### 2 303180 #### [facility] [address] [place] [address] Lymphocytes (Bld) [#/Vol] 1.9 E9/L Normal 1.0-4.0 [facility] Comment on above: Performed By: #### 2 407907 #### [facility] [address] [place] [address] Lymphocytes/100 WBC (Bld) 26.2 % Normal 14.0-50.0 [facility] Comment on above: Performed By: #### 2 049971 #### [facility] [address] [place] [address] MCH (RBC) [Entitic mass] 33.0 pg Normal 27.0-34.0 [facility] Comment on above: Performed By: #### 2 702463 #### [facility] [address] [place] [address] MCHC (RBC) [Mass/Vol] 35.7 g/dL Normal 31.4-36.0 [facility] Comment on above: Performed By: #### 2 339810 #### [facility] [address] [place] [address] MCV (RBC) [Entitic vol] 92.4 fL Normal 80.0-100.0 [facility] Comment on above: Performed By: #### 2 210307 #### [facility] [address] [place] [address] Monocytes (Bld) [#/Vol] 0.7 E9/L Normal 0.2-1.0 [facility] Comment on above: Performed By: #### 2 138249 #### [facility] [address] [place] [address] Neutrophils (Bld) [#/Vol] 4.2 E9/L Normal 2.0-7.5 [facility] Comment on above: Performed By: #### 2 464427 ####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 Office/Clini c Noteon 06-21-2023 [...] also presents with illness. Patient was at [facility] 3 days ago and was prescribed [...] She is agreeable to a referral to consulting psychologist or psychiatrist. Patient states she went [...] one tablet at bedtime Discussed referral to consulting psychologist at [facility] in agreement Ordered: [facility] External Ambulatory Referral 2. Acute upper respiratory infection (J06.9: Acute upper respiratory infection, unspecified) Explained viral vs bacterial infection Encouraged increase fluids Instructed to finish the cephalexin prescribed by the ED f/u if no improvement Ordered: Influenza Type A&B POC 88675 3. BMI 31.0-31.9,adult (Z68.31: Body mass index [...] Depression Patient Education Upper Respiratory Infection, Adult, Tjte-pc-Xdew Problem List/Past Medical History Ongoing Acute upper [...] 05/23/2023 G (more content not included)... Normal [facility] Comment on above: Result Comment: Elec tronically Signed By: ALLI MACK CNP\.br\Date and Time Signed: 06/21/23 07:31 EST Physician Referralon 024 Physician Referral [id number] Normal [facility] Ambulatory Visit Summaryon 0 06-20-2023 [...] Appointments Sunday 2:40 PM EDT With: ALLI AMCK CNP Where: [facility] Family Medicine Betty Normal [facility] Patient Educationon 06-20-19 Patient Education Infectious Disease [...] to help relieve symptoms, such as: ? Jtly-eok-qsjbaad cold medicines. ? Medicines to reduce coughing [...] other clear broths. General instructions ? Take kgkv-tge-xifrtxm and prescription medicines only as told by [...] cannot use soap and water, use hand flag signaler. ? Avoid touching your mouth, face, eyes, [...] get better within 7?10 days. ? Take qvsr-cji-vzxrpba and prescription medicines only as told by your doctor. This information is not intended to replace advice given to you by your health care (more content not included)... Normal [facility] Ambulatory Visit Summaryon 0 05-23-2023 [...] 1:40 PM EST With: Socorro Casarez Where: [facility] Medicine Betty Normal [facility] Consent for Flu Vaccineon Consent for Flu Vaccine [id number] Normal [facility] Office/Clini c Noteon 05-23-2023 Family [place] Office/Clinic Note Chief Complaint depression follow up [...] # 90 tab(s), Refills(s) 1, [id number], 168, cm, 05/23/23 13:08:00 EST, Height/Length Dosing, 90, kg, 05/23/23 13:08:00 EST, Weight Dosing Completed & reviewed the PHQ-9 score of 13 and the MARCIAL-7 score of 18 today in the office escitalopram, 20 mg = 1 tab(s), Oral, Daily, # 90 tab(s), Refills(s) 1, [id number], 168, cm, 05/23/23 13:08:00 EST, Height/Length Dosing, 90, kg, 05/23/23 13:08:00 EST, Weight Dosing f/u in 4 weeks Ordered: influenza virus vaccine, inactivated, 0.5 mL, Injection, IntraMuscular, Once, Stop date 05/23/23 14:00:00 EST, Routine, Start date 05/23/23 14:00:00 EST trazodone, 50 mg = 1 tab(s), Oral, Once a day (at bedtime), # 90 tab(s), Refills(s) 1, [id number], 168, cm, 05/23/23 13:08:00 EST, Height/Length Dosing, 90, kg, 05/23/23 13:08:00 EST, Weight Dosing 2. Encounter to establish care (Z76.89: Persons encountering health services in other specified circumstances) 3. Encounter for immunization (Z23: Encounter for immunization) Ordered: influenza virus vaccine, inactivated, 0.5 mL, Injection, IntraMuscular, Once, Stop date 05/23/23 14:00:00 EST, Routine, Start date 05/23/23 14:00:00 EST FIRST VACCINE w/o Ordnance Handler Admin Charge [id number] Orders: escitalopram, 20 mg = 1 tab(s), Oral, Daily, # 90 tab(s), Refills(s) 1, [id number], 168, cm, 05/23/23 13:08:00 EST, [...] 1 refills (more content not included)... Normal [facility] Comment on above: Result [...] pray, or go to a place of yarsani. ? Do some deep breathing. To do [...] or salt (sodium). General instructions ? Take etsm-fvk-uxgzjyu and prescription medicines only as told by [...] Kristan: [email or web address] (more content not included)... Normal [facility] CHEMISTRYOrdered By: SYSTEM SYSTEM on [...] on 07-10-2022 Cholesterol [Mass/Vol] 134 mg/dL 140-200 [facility] Comment on above: Chol less than 200 [...] 07-09-2022 Acetaminophen [Mass/Vol] ug/mL Critically low 10.0-30.0 [facility] Comment on above: Performed By: #### C SERINA GUPTA ACET #### [facility] [address] [address] [address] Skylar Ramirez CBC AUTO DIFFon 07-09-2022 BASO # 0.1 103/ul Normal 0.0-0.1 [facility] Comment on above: Performed By: #### C BC #### [facility] [address] [place] [address] Dr. Skylar Ramirez Basophils/100 WBC (Bld) 0.6 % Normal 0.2-2.0 [facility] Comment on above: Performed By: #### C BC #### [facility] [address] [place] [address] Dr. Skylar Raimrez EO # 0.1 103/ul Normal 0.0-0.7 [facility] Comment on above: Performed By: #### C BC #### [facility] [address] [place] [address] Dr. Skylar Ramirez Eosinophils/100 WBC (Bld) 1.0 % Normal 0.9-7.0 [facility] Comment on above: Performed By: #### C BC #### [facility] [address] [place] [address] Dr. Skylar Ramirez Erythrocyte distribution width (RBC) [Ratio] 12.6 % Normal 11.0-15.0 [facility] Comment on above: Performed By: #### C BC #### [facility] [address] [place] [address] Dr. Skylar Ramirez Hematocrit (Bld) [Volume fraction] 39.7 % Normal 36.0-48.0 [facility] Comment on above: Performed By: #### C BC #### [facility] [address] [place] [address] Dr. Skylar Ramirez Hemoglobin (Bld) [Mass/Vol] 14.4 g/dL Normal 12.0-16.0 [facility] Comment on above: Performed By: #### C BC #### [facility] [address] [place] [address] Dr. Skylar Ramirez IG # 0.03 10e3/ul Normal 0.00-0.03 [facility] Comment on above: Performed By: #### C BC #### [facility] [address] [place] [address] Dr. Skylar Ramirez IG % 0.4 % Normal 0.0-0.5 [facility] Comment on above: Performed By: #### C BC #### [facility] [address] [address] [address] Skylar Ramirez LYMPH # 2.2 103/ul Normal 1.2-3.8 [facility] Comment on above: Performed By: #### C BC #### [facility] [address] [address] [address] Skylar Ramirez Lymphocytes/100 WBC (Bld) 27.4 % Normal 20.5-60.0 [facility] Comment on above: Performed By: #### C BC #### [facility] [address] [place] [address] Dr. Skylar Ramirez MANUAL DIFF REQ NO Normal [facility] Comment on above: Performed By: #### C BC #### [facility] [address] [place] [address] Dr. Skylar Ramirez MCH (RBC) [Entitic mass] 33.6 pg Normal 26.7-34.0 [facility] Comment on above: Performed By: #### C BC #### [facility] [address] [place] [address] Dr. Skylar Ramirez MCHC (RBC) [Mass/Vol] 36.3 g/dL Critically high 29.9-35.2 [facility] Comment on above: Performed By: #### C BC #### [facility] [address] [place] [address] Dr. Skylar Ramirez MCV (RBC) [Entitic vol] 92.5 fL Normal 81.0-99.0 [facility] Comment on above: Performed By: #### C BC #### [facility] [address] [place] [address] Dr. Skylar Ramirez MONO # 0.4 103/ul Normal 0.3-0.8 [facility] Comment on above: Performed By: #### C BC #### [facility] [address] [place] [address] Dr. Skylar Ramirez Monocytes/100 WBC (Bld) 5.5 % Normal 1.7-12.0 [facility] Comment on above: Performed By: #### C BC #### [facility] [address] [place] [address] Dr. Skylar Ramirez NEUT # 5.3 103/ul Normal 1.4-6.5 [facility] Comment on above: Performed By: #### C BC #### [facility] [address] [place] [address] Dr. Skylar Ramirez Neutrophils/100 WBC (Bld) 65.1 % Normal 43.0-75.0 [facility] Comment on above: Performed By: #### C BC #### [facility] [address] [place] [address] Dr. Skylar Ramirez Platelet mean volume (Bld) [Entitic vol] 9.8 fL Normal 9.5-13.5 [facility] Comment on above: Performed By: #### C BC #### [facility] [address] [place] [address] Dr. Skylar Ramirez PLT 316 103/ul Normal 150-450 [facility] Comment on above: Performed By: #### C BC #### [facility] [address] [place] [address] Dr. Skylar Ramirez RBC 4.29 106/ul Normal 4.20-5.40 [facility] Comment on above: Performed By: #### C BC #### [facility] [address] [place] [address] Dr. Skylar Ramirez WBC 8.1 103/ul Normal 4.0-11.0 [facility] Comment on above: Performed By: #### C BC #### [facility] [address] [place] [address] Dr. Skylar Ramirez DRUG SCREEN RAPID (URINE)on 07-09-2022 AMP Negative Normal NEGATIVE [facility] Comment on above: Performed By: #### E TH #### [facility] [address] [place] [address] Dr. Skylar Ramirez BAR Negative Normal NEGATIVE [facility] Comment on above: Performed By: #### E TH #### [facility] [address] [place] [address] Dr. Skylar Ramirez BUP Negative Normal NEGATIVE [facility] Comment on above: Performed By: #### E TH #### [facility] [address] [place] [address] Dr. Skylar Ramirez BZO Negative Normal NEGATIVE [facility] Comment on above: Performed By: #### E #### [facility] [address] [place] [address] Dr. Skylar Ramirez RICHIE Negative Normal NEGATIVE [facility] Comment on above: Performed By: #### E #### [facility] [address] [place] [address] Dr. Skylar Ramirez CUT-OFFS SEE BELOW Normal [facility] Comment on above: Result Comment: AMP (Amphetamine): 500ng/mL, BAR (Barbituates): 200 ng/mL, BZO (Benzodiazepines): 150 ng/mL, BUP (Buprenorphine): 10 ng/mL, RICHIE (Cocaine): 150 ng/mL, mAMP (Methamphetamine): 500 ng/mL, MTD (Methadone): 200 ng/mL, OPI (Opiates): 100 ng/mL, OXY (Oxycodone): 100 ng/mL, PCP (Phencyclidine): 25 ng/mL, PPX (Propoxyphene): 300 ng/mL, THC (Cannabinoids): 50 ng/mL, TCA (Trycyclic Antidepressants): 300 ng/mL Performed By: #### E #### [facility] [address] [place] [address] Dr. Skylar Ramirez DRUG CUT HEADER DRUG CLASS TEST SYST EM CUT-OFF CONCENTRATIONS ARE FOLLOWS: Normal [facility] Comment on above: Performed By: #### E #### [facility] [address] [place] [address] Dr. Skylar Ramirez mAMP Negative Normal NEGATIVE [facility] Comment on above: Performed By: #### E #### [facility] [address] [place] [address] Dr. Skylar Ramirez MTD Negative Normal NEGATIVE [facility] Comment on above: Performed By: #### E #### [facility] [address] [place] [address] Dr. Skylar Ramirez OPI Negative Normal NEGATIVE [facility] Comment on above: Performed By: #### E #### [facility] [address] [place] [address] Dr. Skylar Ramirez OXY Negative Normal NEGATIVE [facility] Comment on above: Performed By: #### E TH #### [facility] [address] [place] [address] Dr. Skylar Ramirez PCP Negative Normal NEGATIVE [facility] Comment on above: Performed By: #### E #### [facility] [address] [place] [address] Dr. Skylar Ramirez PPX Negative Normal NEGATIVE [facility] Comment on above: Performed By: #### E #### [facility] [address] [place] [address] Dr. Skylar Ramirez TCA Negative Normal NEGATIVE [facility] Comment on above: Performed By: #### E #### [facility] [address] [place] [address] Dr. Skylar Ramirez THC Positive Abnormal NEGATIVE [facility] Comment on above: Performed By: #### E #### [facility] [address] [place] [address] Dr. Skylar Ramirez ER URINE PROFILEon 3 Bilirubin Ql (U) Negative Normal NEGATIVE [facility] Comment on above: Performed By: #### D MARIBETH ERUR #### [facility] [address] [place] [address] Dr. Skylar Ramirez Clarity (U) CLEAR Normal CLEAR [facility] Comment on above: Performed By: #### D MARIBETH ERUR #### [facility] [address] [place] [address] Dr. Skylar Ramirez Color (U) LT. YELLOW Normal YELLOW [facility] Comment on above: Performed By: #### D MARIBETH ERUR #### [facility] [address] [place] [address] Dr. Skylar FARMERAHJessica A micrscopic examina tion will be performed if indicated. Normal [facility] Comment on above: Performed By: #### D MARIBETH ERUR #### [facility] [address] [place] [address] Dr. Skylar Ramirez Glucose Ql (U) Negative Normal NEGATIVE [facility] Comment on above: Performed By: #### D RUGRPD, ERUR #### [facility] [address] [address] [address] Skylar Ramirez Hemoglobin Ql (U) Negative Normal NEGATIVE [facility] Comment on above: Performed By: #### D RUGRPD, ERUR #### [facility] [address] [address] [address] Skylar Ramirez Ketones Ql (U) Negative Normal NEGATIVE [facility] Comment on above: Performed By: #### D RUGRPD, ERUR #### [facility] [address] [address] [address] Skylar Ramirez LEUKOCYTES Negative Normal NEGATIVE [facility] Comment on above: Performed By: #### D RUGRPD, ERUR #### [facility] [address] [place] [address] Dr. Skylar Ramirez Nitrite Ql (U) Negative Normal NEGATIVE [facility] Comment on above: Performed By: #### D ROCIORPD, ERUR #### [facility] [address] [address] [address] Skylar Ramirez pH (U) 6.0 [pH] Normal 5-9 [facility] Comment on above: Performed By: #### D ROCIORPD, ERUR #### [facility] [address] [place] [address] Dr. Skylar Ramirez SPEC GRAVITY <=1.005 Abnormal 1.005-<=1. 025 [facility] Comment on above: Performed By: #### D RUGRPD, ERUR #### [facility] [address] [address] [address] Skylar Ramirez UA PROTEIN Negative Normal NEGATIVE/ TRACE [facility] Comment on above: Performed By: #### D RUGRPD, ERUR #### [facility] [address] [address] [address] Skylar Ramirez UR MICRO IND NOT INDICATED Normal [facility] Comment on above: Performed By: #### D RUGRPD, ERUR #### [facility] [address] [address] [address] Skylar Ramirez Urobilinogen Qn (U) 0.2 {Evens'U}/dL Normal 0.2 - 1. 0 [facility] Comment on above: Performed By: #### D RUGRPD, ERUR #### [facility] [address] [address] [address] Skylar Ramirez ETHANOL (BLD ALC)on 07-10-19 23 ALC NOTE NOTE: 80 mg/dl is th e legal limit for a blood alcohol level Normal [facility] Comment on above: Performed By: #### E TH #### [facility] [address] [place] [address] Dr. Skylar Ramirez Ethanol [Mass/Vol] 90 mg/dL Normal [facility] Comment on above: Performed By: #### E TH #### [facility] [address] [place] [address] Dr. Skylar Ramirez ALC NOTE NOTE: 80 mg/dl is th e legal limit for a blood alcohol level Normal [facility] Comment on above: Performed By: #### E TH #### [facility] [address] [address] [address] Skylar Ramirez Ethanol [Mass/Vol] 116 mg/dL Normal [facility] Comment on above: Performed By: #### E TH #### [facility] [address] [place] [address] Dr. Skylar Ramirez PREG HCG QUALon 07-09-2022 , QUAL Negative Normal NEGATIVE [facility] Comment on above: Performed By: #### P REG #### [facility] [address] [place] [address] Dr. Skylar Ramirez PROF 14(COMP METB)on 023 Albumin [Mass/Vol] 4.4 g/dL Normal 3.4-5.0 [facility] Comment on above: Performed By: #### C MP, SALYC, ACET #### [facility] [address] [place] [address] Dr. Skylar Ramirez Albumin/Globulin [Mass ratio] 1.5 {ratio} Normal [facility] Comment on above: Performed By: #### C MP, SALYC, ACET #### [facility] [address] [address] [address] Skylar Ramirez ALP [Catalytic activity/Vol] 65 U/L Normal 46-116 [facility] Comment on above: Performed By: #### C MP, SALYC, ACET #### [facility] [address] [place] [address] Dr. Skylar Ramirez ALT [Catalytic activity/Vol] 16 U/L Normal 14-59 [facility] Comment on above: Performed By: #### C MP, SALYC, ACET #### [facility] [address] [place] [address] Dr. Skylar Ramirez Anion gap [Moles/Vol] 14.2 mmol/L Normal [facility] Comment on above: Performed By: #### C MP, SALYC, ACET #### [facility] [address] [place] [address] Dr. Skylar Ramirez AST [Catalytic activity/Vol] 14 U/L Critically low 15-37 [facility] Comment on above: Performed By: #### C MP, SALYC, ACET #### [facility] [address] [place] [address] Dr. Skylar Ramirez Bilirubin [Mass/Vol] 0.6 mg/dL Normal 0.2-1.0 [facility] Comment on above: Performed By: #### C MP, SALYC, ACET #### [facility] [address] [place] [address] Dr. Skylar Ramirez Calcium [Mass/Vol] 9.1 mg/dL Normal 8.5-10.1 [facility] Comment on above: Performed By: #### C MP, SALYC, ACET #### [facility] [address] [place] [address] Dr. Skylar Ramirez Chloride [Moles/Vol] 106 mmol/L Normal 98-107 [facility] Comment on above: Performed By: #### C MP, SALYC, ACET #### [facility] [address] [place] [address] Dr. Skylar Ramirez CO2 [Moles/Vol] 26.0 mmol/L Normal 21.0-32.0 [facility] Comment on above: Performed By: #### C SERINA GPUTA, ACET #### [facility] [address] [address] [address] Skylar Ramirez Creatinine [Mass/Vol] 0.78 mg/dL Normal 0.55-1.02 [facility] Comment on above: Performed By: #### C ENZO GUPTAYC, ACET #### [facility] [address] [address] [address] Skylar Ramirez EGFR-AF SAMMARINESE >60 Normal >=60 [facility] Comment on above: Performed By: #### C SERINA GUPTA, ACET #### [facility] [address] [address] [address] Skylar Ramirez EGFR-NON AF SAMMARINESE >60 Normal >=60 [facility] Comment on above: Performed By: #### C SERINA GUPTA, ACET #### [facility] [address] [address] [address] Skylar Ramirez Globulin (S) [Mass/Vol] 3.0 g/dL Normal [facility] Comment on above: Performed By: #### C SERINA GUPTA, ACET #### [facility] [address] [address] [address] Skylar Ramirez Glucose [Mass/Vol] 129 mg/dL Critically high 74-106 [facility] Comment on above: Performed By: #### C SERINA GUPTA, ACET #### [facility] [address] [address] [address] Skylar Ramirez Potassium [Moles/Vol] 3.2 mmol/L Critically low 3.5-5.1 [facility] Comment on above: Performed By: #### C SERINA GUPTA, ACET #### [facility] [address] [address] [address] Skylar Ramirez Protein [Mass/Vol] 7.4 g/dL Normal 6.4-8.2 [facility] Comment on above: Performed By: #### C SERINA GUPTA, ACET #### [facility] [address] [place], [place] [address] Dr. Skylar Ramirez Sodium [Moles/Vol] 143 mmol/L Normal 136-145 [facility] Comment on above: Performed By: #### C ENZO GUPTAYC, ACET #### [facility] [address] [place], [place] [address] Dr. Skylar Ramirez Urea nitrogen [Mass/Vol] 6.0 mg/dL Critically low 6.4-19.3 [facility] Comment on above: Performed By: #### C CANDY SALYC, ACET #### [facility] [address] [address] [address] Skylar Ramirez Urea nitrogen/Creatinine [Mass ratio] 7.7 mg/mg Normal [facility] Comment on above: Performed By: #### C CANDY SALYC, ACET #### [facility] [address] [address] [address] Skylar Ramirez SALICYLATEon 07-09-2022 SALICYLATE <2.8 Normal <=19.9 [facility] Comment on above: Performed By: #### C ENZO GUPTAYC, ACET #### [facility] [address] [address] [address] Skylar Ramirez XR HAND RT MIN [...] spec) Detected Critically abnormal NOT DETECTED [facility] Comment on above: Result Comment: This test is not yet approved or cleared by the [place] FDA. When there are no FDA-approved or cleared tests available, and other criteria are met, FDA can make tests available under an emergency access mechanism called an Emergency Use Authorization (EUA). The EUA for this test is supported by the [place] of Health and Human Service's (HHS's) declaration [...] used). Performed By: #### E TH #### [facility] [address] [place] [address] Dr. Skylar Ramirez Covid-19 PCR (CVDTB)on SARS-CoV-2 (COVID-19) RNA ANUP+probe Ql (Unsp spec) Not detected Normal NOT DETECTED [facility] Comment on above: Result Comment: This test is not yet approved or cleared by the [place] FDA. When there are no FDA-approved or cleared tests available, and other criteria are met, FDA can make tests available under an emergency access mechanism called an Emergency Use Authorization (EUA). The EUA for this test is supported by the [place] of Health and Human Service's (HHS's) declaration [...] consistent with SARS-CoV-2. Performed By: #### [facility] #### [facility] [address] [place] [address] Dr. Skylar Ramirez CBC AUTO DIFFon 08-17-2021 BASO # 0.1 103/ul Normal 0.0-0.1 [facility] Comment on above: Performed By: #### E TH #### [facility] [address] [place] [address] Dr. Skylar Ramirez Basophils/100 WBC (Bld) 0.6 % Normal 0.2-2.0 [facility] Comment on above: Performed By: #### E TH #### [facility] [address] [place] [address] Dr. Skylar Ramirez EO # 0.2 103/ul Normal 0.0-0.7 [facility] Comment on above: Performed By: #### E TH #### [facility] [address] [place] [address] Dr. Skylar Ramirez Eosinophils/100 WBC (Bld) 2.0 % Normal 0.9-7.0 [facility] Comment on above: Performed By: #### E TH #### [facility] [address] [place] [address] Dr. Skylar Ramirez Erythrocyte distribution width (RBC) [Ratio] 13.2 % Normal 11.0-15.0 [facility] Comment on above: Performed By: #### E #### [facility] [address] [place] [address] Dr. Skylar Ramirez Hematocrit (Bld) [Volume fraction] 38.4 % Normal 36.0-48.0 [facility] Comment on above: Performed By: #### E #### [facility] [address] [place] [address] Dr. Skylar Ramirez Hemoglobin (Bld) [Mass/Vol] 13.1 g/dL Normal 12.0-16.0 [facility] Comment on above: Performed By: #### E #### [facility] [address] [place] [address] Dr. Skylar Ramirez IG # 0.02 10e3/ul Normal 0.00-0.03 [facility] Comment on above: Performed By: #### E #### [facility] [address] [place] [address] Dr. Skylar Ramirez IG % 0.2 % Normal 0.0-0.5 [facility] Comment on above: Performed By: #### E #### [facility] [address] [place] [address] Dr. Syklar Ramirez LYMPH # 3.0 103/ul Normal 1.2-3.8 [facility] Comment on above: Performed By: #### E #### [facility] [address] [place] [address] Dr. Skylar Ramirez Lymphocytes/100 WBC (Bld) 31.8 % Normal 20.5-60.0 [facility] Comment on above: Performed By: #### E #### [facility] [address] [place] [address] Dr. Skylar Ramirez MANUAL DIFF REQ NO Normal [facility] Comment on above: Performed By: #### E TH #### [facility] [address] [place] [address] Dr. Skylar Ramirez MCH (RBC) [Entitic mass] 32.0 pg Normal 26.7-34.0 [facility] Comment on above: Performed By: #### E TH #### [facility] [address] [address] [address] Skylar Ramirez MCHC (RBC) [Mass/Vol] 34.1 g/dL Normal 29.9-35.2 [facility] Comment on above: Performed By: #### E TH #### [facility] [address] [place] [address] Dr. Skylar Ramirez MCV (RBC) [Entitic vol] 93.7 fL Normal 81.0-99.0 [facility] Comment on above: Performed By: #### E #### [facility] [address] [place] [address] Dr. Skylar Ramirez MONO # 0.7 103/ul Normal 0.3-0.8 [facility] Comment on above: Performed By: #### E #### [facility] [address] [place] [address] Dr. Skylar Ramirez Monocytes/100 WBC (Bld) 7.6 % Normal 1.7-12.0 [facility] Comment on above: Performed By: #### E #### [facility] [address] [place] [address] Dr. Skylar Ramirez NEUT # 5.4 103/ul Normal 1.4-6.5 [facility] Comment on above: Performed By: #### E #### [facility] [address] [place] [address] Dr. Skylar Ramirez Neutrophils/100 WBC (Bld) 57.8 % Normal 43.0-75.0 [facility] Comment on above: Performed By: #### E #### [facility] [address] [place] [address] Dr. Skylar Ramirez Platelet mean volume (Bld) [Entitic vol] 10.9 fL Normal 9.5-13.5 [facility] Comment on above: Performed By: #### E #### [facility] [address] [place] [address] Dr. Skylar Ramirez PLT 275 103/ul Normal 150-450 [facility] Comment on above: Performed By: #### E TH #### [facility] [address] [place] [address] Dr. Skylar Ramirez RBC 4.10 106/ul Critically low 4.20-5.40 [facility] Comment on above: Performed By: #### E TH #### [facility] [address] [place] [address] Dr. Skylar Ramirez WBC 9.3 103/ul Normal 4.0-11.0 [facility] Comment on above: Performed By: #### E TH #### [facility] [address] [place] [address] Dr. Skylar Ramirez FREE T3on 08-17-2021 FREE T3 2.08 pg/mlL Critically low 2.91-4.70 [facility] Comment on above: Performed By: #### E TH #### [facility] [address] [place] [address] Dr. Skylar Ramirez FREE T4on 08-17-2021 Free T4 [Mass/Vol] 0.93 ng/dL Normal 0.78-1.34 [facility] Comment on above: Performed By: #### E #### [facility] [address] [place] [address] Dr. Skylar Ramirez PROF 14(COMP METB)on 022 Albumin [Mass/Vol] 4.4 g/dL Normal 3.4-5.0 [facility] Comment on above: Performed By: #### E TH #### [facility] [address] [place] [address] Dr. Skylar Ramirez Albumin/Globulin [Mass ratio] 1.6 {ratio} Normal [facility] Comment on above: Performed By: #### E TH #### [facility] [address] [place] [address] Dr. Skylar Ramirez ALP [Catalytic activity/Vol] 45 U/L Critically low 46-116 [facility] Comment on above: Performed By: #### E TH #### [facility] [address] [place] [address] Dr. Skylar Ramirez ALT [Catalytic activity/Vol] 14 U/L Normal 14-59 [facility] Comment on above: Performed By: #### E #### [facility] [address] [address] [address] Skylar Ramirez Anion gap [Moles/Vol] 13.7 mmol/L Normal [facility] Comment on above: Performed By: #### E #### [facility] [address] [address] [address] Skylar Ramirez AST [Catalytic activity/Vol] 8 U/L Critically low 15-37 [facility] Comment on above: Performed By: #### E #### [facility] [address] [address] [address] Skylar Ramirez Bilirubin [Mass/Vol] 1.2 mg/dL Critically high 0.2-1.0 [facility] Comment on above: Performed By: #### E #### [facility] [address] [place] [address] Dr. Skylar Ramirez Calcium [Mass/Vol] 8.7 mg/dL Normal 8.5-10.1 [facility] Comment on above: Performed By: #### E #### [facility] [address] [place] [address] Dr. Skylar Ramirez Chloride [Moles/Vol] 104 mmol/L Normal 98-107 [facility] Comment on above: Performed By: #### E #### [facility] [address] [place] [address] Dr. Skylar Ramirez CO2 [Moles/Vol] 26.7 mmol/L Normal 21.0-32.0 [facility] Comment on above: Performed By: #### E #### [facility] [address] [place] [address] Dr. Skylar Ramirez Creatinine [Mass/Vol] 0.83 mg/dL Normal 0.55-1.02 [facility] Comment on above: Performed By: #### E #### [facility] [address] [place] [address] Dr. Skylar Ramirez EGFR-AF SAMMARINESE >60 Normal >=60 [facility] Comment on above: Performed By: #### E #### [facility] [address] [place] [address] Dr. Skylar Ramirez EGFR-NON AF SAMMARINESE >60 Normal >=60 [facility] Comment on above: Performed By: #### E TH #### [facility] [address] [place] [address] Dr. Skylar Ramirez Globulin (S) [Mass/Vol] 2.8 g/dL Normal [facility] Comment on above: Performed By: #### E TH #### [facility] [address] [place] [address] Dr. Skylar Ramirez Glucose [Mass/Vol] 111 mg/dL Critically high 74-106 [facility] Comment on above: Performed By: #### E TH #### [facility] [address] [place] [address] Dr. Skylar Ramirez Potassium [Moles/Vol] 3.4 mmol/L Critically low 3.5-5.1 [facility] Comment on above: Performed By: #### E TH #### [facility] [address] [place] [address] Dr. Skylar Ramirez Protein [Mass/Vol] 7.2 g/dL Normal 6.1-8.2 [facility] Comment on above: Performed By: #### E TH #### [facility] [address] [place] [address] Dr. Skylar Ramirez Sodium [Moles/Vol] 141 mmol/L Normal 136-145 [facility] Comment on above: Performed By: #### E TH #### [facility] [address] [place] [address] Dr. Skylar Ramirez Urea nitrogen [Mass/Vol] 10.0 mg/dL Normal 6.4-19.3 [facility] Comment on above: Performed By: #### E TH #### [facility] [address] [place] [address] Dr. Skylar Ramirez Urea nitrogen/Creatinine [Mass ratio] 12.0 mg/mg Normal [facility] Comment on above: Performed By: #### E TH #### [facility] [address] [place] [address] Dr. Skylar Ramirez TSHon 08-17-2021 TSH 0.755 uIU/mL Normal 0.430-3.75 0 [facility] Comment on above: Performed By: #### E TH #### [facility] [address] [id number] Skylar Ramirez TSH RANGE SEE BELOW Normal [facility] Comment on above: Result Comment: <0.3 4 UIU/ml HYPERTHYROID 0.34-5.60 UIU/ml EUTHYROID >5.60 UIU/ml HYPOTHYROID Performed By: #### E TH #### [facility] [address] [place], [place] [address] Dr. Skylar Ramirez Vital Signs Date Time Vital Sign Value Performing Clinician Facility 06-24-2024 14:13-0400 Body weight 81.65 kg Iveth Pemberton DO Work Phone: [facility] 06-24-2024 14:13-0400 Diastolic blood pressure 80 mm[Hg] Iveth Pemberton DO Work Phone: [facility] 06-24-2024 14:13-0400 Systolic blood pressure 130 mm[Hg] Iveth Pemberton DO Work Phone: [facility] 06-19-2024 17:07-0500 Body temperature 98.3 [degF] Rodolfo Anthony MD Work Phone: [facility] 06-19-2024 17:07-0500 Diastolic blood pressure 69 mm[Hg] Rodolfo Anthony MD Work Phone: [facility] 06-19-2024 17:07-0500 Heart rate 107 /min Rodolfo Anthony MD Work Phone: [facility] 06-19-2024 17:07-0500 Respiratory rate 18 /min Rodolfo Anthony MD Work Phone: [facility] 06-19-2024 17:07-0500 SaO2% (BldA) [Mass fraction] 97 % Rodolfo Anthony MD Work Phone: [facility] 06-19-2024 17:07-0500 Systolic blood pressure 115 mm[Hg] Rodolfo Anthony MD Work Phone: [facility] 06-10-2024 13:08-0500 Body weight 79.38 kg Iveth Rinkes DO Work Phone: [facility] 06-10-2024 13:08-0500 Diastolic blood pressure 72 mm[Hg] Iveth Rinkes DO Work Phone: [facility] 06-10-2024 13:08-0500 Systolic blood pressure 126 mm[Hg] Iveth Rinkes DO Work Phone: [facility] 05-23-2024 08:53-0500 Body weight 78.93 kg Iveth Rinkes DO Work Phone: [facility] 05-23-2024 08:53-0500 Diastolic blood pressure 80 mm[Hg] Iveth Rinkes DO Work Phone: [facility] 05-23-2024 08:53-0500 Systolic blood pressure 120 mm[Hg] Iveth Rinkes DO Work Phone: [facility] 05-22-2024 10:32-0500 Body height 162.56 cm Rodolfo Anthony MD Work Phone: [facility] 05-22-2024 10:32-0500 Body mass index (BMI) [Ratio] 30.2 kg/m2 Rodolfo Anthony MD Work Phone: [facility] 05-22-2024 10:32-0500 Body weight 79.83 kg Rodolfo Anthony MD Work Phone: [facility] 05-22-2024 10:32-0500 Diastolic blood pressure 68 mm[Hg] Rodolfo Anthony MD Work Phone: [facility] 05-22-2024 10:32-0500 Heart rate 99 /min Rodolfo Anthony MD Work Phone: [facility] 05-22-2024 10:32-0500 Respiratory rate 18 /min Rodolfo Anthony MD Work Phone: [facility] 05-22-2024 10:32-0500 SaO2% (BldA) [Mass fraction] 98 % Rodolfo Anthony MD Work Phone: [facility] 05-22-2024 10:32-0500 Systolic blood pressure 108 mm[Hg] Rodolfo Anthony MD Work Phone: [facility] 05-05-2024 13:13-0500 Diastolic blood pressure 62 mm[Hg] Rodolfo Anthony MD Work Phone: [facility] 05-05-2024 13:13-0500 Heart rate 80 /min Rodolfo Anthony MD Work Phone: [facility] 05-05-2024 13:13-0500 Respiratory rate 18 /min Rodolfo Anthony MD Work Phone: [facility] 05-05-2024 13:13-0500 SaO2% (BldA) [Mass fraction] 100 % Rodolfo Anthony MD Work Phone: [facility] 05-05-2024 13:13-0500 Systolic blood pressure 110 mm[Hg] Rodolfo Anthony MD Work Phone: [facility] 05-05-2024 11:24-0500 Body height 162.56 cm Rodolfo Anthony MD Work Phone: [facility] 05-05-2024 11:24-0500 Body temperature 98.1 [degF] Rodolfo Anthony MD Work Phone: [facility] 05-05-2024 11:24-0500 Body weight 80.4 kg Rodolfo Anthony MD Work Phone: [facility] 04-27-2024 12:03-0500 Body height 165.1 cm Rodolfo Anthony MD Work Phone: [facility] 04-27-2024 12:03-0500 Body temperature 98.3 [degF] Rodolfo Anthony MD Work Phone: [facility] 04-27-2024 12:03-0500 Body weight 76.35 kg Rodolfo Anthony MD Work Phone: [facility] 04-27-2024 12:03-0500 Diastolic blood pressure 75 mm[Hg] Rodolfo Anthony MD Work Phone: [facility] 04-27-2024 12:03-0500 Heart rate 104 /min Rodolfo Anthony MD Work Phone: [facility] 04-27-2024 12:03-0500 Respiratory rate 18 /min Rodolfo Anthony MD Work Phone: [facility] 04-27-2024 12:03-0500 SaO2% (BldA) [Mass fraction] 97 % Rodolfo Anthony MD Work Phone: [facility] 04-27-2024 12:03-0500 Systolic blood pressure 125 mm[Hg] Rodolfo Anthony MD Work Phone: [facility] 04-25-2024 11:23-0500 Body weight 78.47 kg Iveth Rinkes DO Work Phone: [facility] 04-25-2024 11:23-0500 Diastolic blood pressure 70 mm[Hg] Iveth Rinkes DO Work Phone: [facility] 04-25-2024 11:23-0500 Systolic blood pressure 120 mm[Hg] Iveth Rinkes DO Work Phone: [facility] 03-28-2024 10:04-0500 Body weight 73.03 kg Iveth Rinkes DO Work Phone: [facility] 03-28-2024 10:04-0500 Diastolic blood pressure 80 mm[Hg] Iveth Rinkes DO Work Phone: [facility] 03-28-2024 10:04-0500 Systolic blood pressure 120 mm[Hg] Iveth Rinkes DO Work Phone: [facility] 02-29-2024 10:29-0500 Body weight 78.47 kg Iveth Rinkes DO Work Phone: [facility] 02-29-2024 10:29-0500 Diastolic blood pressure 80 mm[Hg] Iveth Rinkes DO Work Phone: [facility] 02-29-2024 10:29-0500 Systolic blood pressure 118 mm[Hg] Iveth Rinkes DO Work Phone: [facility] 12-03-2023 16:00-0400 Diastolic blood pressure 59 mm[Hg] PA-C Aldair Sandra Work Phone: [facility] [...] Diastolic blood pressure 73 mm[Hg] ALLI MACK [facility] 09-30-2023 22:58-0400 Heart rate 75 /min ALLI MACK [facility] 09-30-2023 22:58-0400 Mean blood pressure 83 mm[Hg] ALLI CINDI [facility] 09-30-2023 22:58-0400 Respiratory rate 18 /min ALLI CINDI [facility] 09-30-2023 22:58-0400 SaO2% (BldA) [Mass fraction] 99 % ALLI CINDI [facility] 09-30-2023 22:58-0400 Systolic blood pressure 102 mm[Hg] ALLI CINDI [facility] 09-30-2023 21:50-0400 Diastolic blood pressure 73 mm[Hg] ALLI CINDI [facility] 09-30-2023 21:50-0400 Heart rate 82 /min ALLI CINDI [facility] 09-30-2023 21:50-0400 Mean blood pressure 83 mm[Hg] ALLI CINDI [facility] 09-30-2023 21:50-0400 Respiratory rate 18 /min ALLI CINDI [facility] 09-30-2023 21:50-0400 SaO2% (BldA) [Mass fraction] 97 % ALLI CINDI [facility] 09-30-2023 21:50-0400 Systolic blood pressure 104 mm[Hg] ALLI CINDI [facility] 09-30-2023 20:53-0400 Diastolic blood pressure 83 mm[Hg] ALLI CINDI [facility] 09-30-2023 20:53-0400 Heart rate 85 /min ALLI CINDI [facility] 09-30-2023 20:53-0400 Mean blood pressure 90 mm[Hg] ALLI CINDI [facility] 09-30-2023 20:53-0400 Respiratory rate 18 /min ALLI REYESANN [facility] 09-30-2023 20:53-0400 SaO2% (BldA) [Mass fraction] 98 % ALLI REYESANN [facility] 09-30-2023 20:53-0400 Systolic blood pressure 105 mm[Hg] ALLI CINDI [facility] 09-30-2023 19:41-0400 Body temperature 98.42 [degF] ALLI MACK [facility] 09-30-2023 19:41-0400 Heart rate 88 /min ALLI REYESANN [facility] 08-27-2023 09:30-0400 Heart rate 63 /min Edi Ishmael [facility] 08-27-2023 09:30-0400 Respiratory rate 16 /min Edi Ishmael [facility] 08-27-2023 09:30-0400 SaO2% (BldA) [Mass fraction] 100 % Edi Ishmael [facility] 08-27-2023 09:00-0400 Diastolic blood pressure 53 mm[Hg] Edi Ishmael [facility] 08-27-2023 09:00-0400 Heart rate 58 /min Edi Ishmael [facility] 08-27-2023 09:00-0400 Mean blood pressure 74 mm[Hg] Edi Ishmael [facility] 08-27-2023 09:00-0400 SaO2% (BldA) [Mass fraction] 98 % Edi Ishmael [facility] 08-27-2023 09:00-0400 Systolic blood pressure 115 mm[Hg] Edi Ishmael [facility] 08-27-2023 08:00-0400 Diastolic blood pressure 68 mm[Hg] Edi Ishmael [facility] 08-27-2023 08:00-0400 Heart rate 70 /min Edi Ishmael [facility] 08-27-2023 08:00-0400 Mean blood pressure 86 mm[Hg] Edi Ishmael [facility] 08-27-2023 08:00-0400 Systolic blood pressure 122 mm[Hg] Edi Ishmael [facility] 08-27-2023 07:30-0400 Diastolic blood pressure 66 mm[Hg] Edi Ishmael [facility] 08-27-2023 07:30-0400 Mean blood pressure 84 mm[Hg] Edi Ishmael [facility] 08-27-2023 07:30-0400 Systolic blood pressure 120 mm[Hg] Edi Ishmael [facility] 08-27-2023 06:54-0400 Body temperature 98.42 [degF] Edi Ishmael [facility] 08-27-2023 06:54-0400 Heart rate 71 /min Edi Ishmael [facility] 08-27-2023 06:54-0400 Respiratory rate 18 /min Edi Ishmael [facility] 08-15-2023 10:16-0400 Body temperature 98.24 [degF] Refugio Barriga [facility] 08-15-2023 10:16-0400 Diastolic blood pressure 72 mm[Hg] Refugio Barriga [facility] 08-15-2023 10:16-0400 Heart rate 88 /min Refugio Barriga [facility] 08-15-2023 10:16-0400 Systolic blood pressure 107 mm[Hg] Refugio Barriga [facility] 08-11-2023 03:34-0400 Diastolic blood pressure 60 mm[Hg] Jessi Avina MD Work Phone: [employer] 08-11-2023 03:34-0400 Heart rate 90 /min Jessi Avina MD Work Phone: [employer] 08-11-2023 03:34-0400 Respiratory rate 18 /min [facility] 08-11-2023 03:34-0400 SaO2% (BldA) [Mass fraction] 100 % [facility]i [facility] MD [facility] 08-11-2023 03:34-0400 Systolic blood pressure 123 mm[Hg] Jessi Avina MD Work Phone: [employer] 08-10-2023 21:17-0400 Body temperature 99 [degF] Jessi Avina MD Work Phone: [employer] 08-03-2023 21:54-0400 Body temperature 97.9 [degF] DO [...] (BldA) [Mass fraction] 100 % DO Kim Gmoes Work Phone: [facility] 08-03-2023 21:54-0400 Systolic blood pressure 114 mm[Hg] DO Kim Gomes Work Phone: [facility] 08-03-2023 20:12-0400 Body height 165.1 cm DO Kim Gomes Work Phone: [facility] 08-03-2023 20:12-0400 Body weight 93.7 kg DO Kim Gomes Work Phone: [facility] 07-12-2022 07:30-0400 [...] 12:01-0500 Body temperature 98.42 [degF] Nevaeh Leahy [facility] 04-11-2022 12:01-0500 bodymassindex 1.18 Nevaeh Leahy [facility] Comment on above: Result Comment: ^~:![facility] 04-11-2022 12:01-0500 Diastolic blood pressure 87 mm[Hg] Nevaeh Leahy [facility] 04-11-2022 12:01-0500 Heart rate 90 /min Nevaeh Cantue [facility] 04-11-2022 12:01-0500 Height/Length Percentile 76.91 Nevaeh Cantue [facility] Comment on above: Result Comment: ^~:!Percentile Source -C [place] 04-11-2022 12:01-0500 Height/Length Z-Score 0.74 Nevaeh Leahy [facility] Comment on above: Result Comment: ^~:![facility] 04-11-2022 12:01-0500 Respiratory rate 20 /min Nevaeh Leahy [facility] 04-11-2022 12:01-0500 SaO2% (BldA) [Mass fraction] 100 % Nevaeh Leahy [facility] 04-11-2022 12:01-0500 Systolic blood pressure 137 mm[Hg] Nevaeh Leahy [facility] 04-11-2022 12:01-0500 weight 1.38 Nevaeh Leahy [facility] Comment on above: Result Comment: ^~:![facility] 04-11-2022 12:01-0500 Weight Percentile 91.69 % Nevaeh Leahy [facility] Comment on above: Result Comment: ^~:!Percentile Source -C [place] 03-23-2022 01:05-0500 Body temperature 98.06 [degF] Kaylinn Dokken [facility] 03-23-2022 01:05-0500 bodymassindex 1.47 Kaylinn Dokken [facility] Comment on above: Result Comment: ^~:![facility] 03-23-2022 01:05-0500 Diastolic blood pressure 79 mm[Hg] Kaylinn Dokken [facility] 03-23-2022 01:05-0500 Heart rate 83 /min Kaylinn Dokken [facility] 03-23-2022 01:05-0500 Height/Length Percentile 42.45 Kaylinn Dokken [facility] Comment on above: Result Comment: ^~:![facility] 03-23-2022 01:05-0500 Height/Length Z-Score -0.19 Kaylinn Dokken [facility] Comment on above: Result Comment: ^~:![facility] 03-23-2022 01:05-0500 Respiratory rate 16 /min Kaylinn Dokken [facility] 03-23-2022 01:05-0500 SaO2% (BldA) [Mass fraction] 99 % Kaylinn Dokken [facility] 03-23-2022 01:05-0500 Systolic blood pressure 117 mm[Hg] Kaylinn Dokken [facility] 03-23-2022 01:05-0500 weight 1.42 Kaylinn Dokken [facility] Comment on above: Result Comment: ^~:![facility] 03-23-2022 01:05-0500 Weight Percentile 92.21 % Kaylinn Dokken [facility] Comment on above: Result [...] Available Start: 06-20-2024 End: 06-20-2024 ambulatory ROCAEL MACK Facility:[facility] Start: 06-19-2024 End: 06-19-2024 Patient encounter procedure Rodolfo Anthony MD Work Phone: [facility] Labor - O/P Start: 06-19-2024 End: 06-19-2024 ambulatory Rodolfo Anthony MD Work Phone: [facility] Work Phone: Start: 06-10-2024 End: 06-10-2024 Office outpatient visit 15 minutes Iveth E Rinkes DO Work Phone: [facility] Comment on above: 27 weeks gestation o f Start: 06-10-2024 End: 06-10-2024 ambulatory IVETH E RINKES Not Available Start: 05-23-2024 End: 05-23-2024 Office outpatient visit 15 minutes Iveth E Rinkes DO Work Phone: [facility] Comment on above: 24 weeks gestation o f ; Screening for diabetes mellitus (DM) Start: 05-23-2024 End: 05-23-2024 ambulatory IVETH PEMBERTON Not Available Start: 05-22-2024 End: 05-22-2024 ambulatory Rodolfo Anthony MD Work Phone: [facility] Work Phone: Start: 05-22-2024 End: 05-22-2024 Patient encounter procedure Rodolfo Anthony MD Work Phone: [facility] Work Phone: Start: 05-14-2024 End: 05-14-2024 Patient encounter procedure Rodolfo Anthony MD Work Phone: [facility]-Electrodiagnostics Work Phone: Start: 05-14-2024 End: 05-14-2024 ambulatory Rodolfo Anthony MD Work Phone: [facility] Work Phone: Start: 05-05-2024 End: 05-05-2024 Emergency department patient visit Rodolfo Anthony MD Work Phone: [facility]-Emergency Room Work Phone: Start: 04-27-2024 End: 04-27-2024 Emergency department patient visit Rodolfo Anthony MD Work Phone: [facility]Emergency [facility] Work Phone: Start: 04-25-2024 End: 04-25-2024 Office outpatient visit 15 minutes Iveth Pemberton DO Work Phone: [facility] Comment on above: 20 weeks gestation o f Start: 04-25-2024 End: 04-25-2024 ambulatory IVETH PEMBERTON Not Available Start: 04-20-2024 Non-patient / Non-visit Rodolfo Anthony MD Work Phone: [facility] ER Work Phone: Start: 03-28-2024 End: 03-28-2024 Bamboo flowsheet Iveth E Rinkes DO Work Phone: [facility] Start: 03-28-2024 End: 03-28-2024 Bamboo flowsheet Iveth E Rinkes DO Work Phone: [facility] Start: 03-28-2024 End: 03-28-2024 Office outpatient visit 15 minutes Iveth E Rinkes DO Work Phone: [facility] Comment on above: 16 weeks gestation o f (Primary Dx); Nausea and vomiting in Start: 03-28-2024 End: 03-28-2024 ambulatory IVETH E RINKES Not Available Start: 02-29-2024 End: 02-29-2024 Bamboo flowsheet Iveth E Rinkes DO Work Phone: [facility] Start: 02-29-2024 End: 02-29-2024 Bamboo flowsheet Iveth E Rinkes DO Work Phone: [facility] Start: 02-29-2024 End: 02-29-2024 Office outpatient visit 25 minutes Iveth E Rinkes DO Work Phone: [facility] Comment on above: GA: 12w6d Start: 02-29-2024 End: 02-29-2024 ambulatory IVETH E RINKES Not Available Start: 02-20-2024 End: 02-20-2024 ambulatory CRECHE ATTENDANT ALLI A CINDI Facility:[facility] Start: 01-29-2024 End: 01-29-2024 ambulatory IVETH RINKES Not Available Start: 01-24-2024 End: 01-24-2024 flow sheet [facility] Nurse [facility] Comment on above: GA: 7w5d Start: 01-24-2024 End: 01-24-2024 ambulatory IVETH RINKES Not Available Start: 12-24-2023 End: 12-24-2023 ambulatory CRECHE ATTENDANT ALLI A CINDI Facility:[facility] Start: 12-03-2023 End: 12-03-2023 Emergency department patient visit CHRIS Sandra Work Phone: [facility]-Emergency Room Work Phone: Start: 09-30-2023 End: 09-30-2023 Emergency department patient visit DO Dino Mccollum [facility] Start: 09-17-2023 End: 09-17-2023 ambulatory IVETH PEMBERTON Not Available Start: 09-13-2023 End: 09-13-2023 ambulatory BAIRON FULLER Not Available Start: 08-29-2023 End: 08-29-2023 ambulatory ROCAEL MACK Facility:[facility] megan Start: 08-27-2023 End: 08-27-2023 Emergency department patient visit Edi Quiñones [facility] Start: 08-15-2023 End: 08-15-2023 ambulatory Jewell Driver Facility:[facility] Start: 08-15-2023 End: 08-15-2023 Patient encounter procedure Refugio Barriga [facility] Start: 08-14-2023 Telephone encounter Ashley Dietz [facility] Acute Care Surgery Start: 08-13-2023 End: 08-13-2023 ambulatory CRECHE ATTENDANT ALLI Leah MESSERCINDI Facility:[facility] megan Start: 08-11-2023 End: 08-11-2023 Emergency department patient visit UNKNOWN PROVIDER Facility:[facility] Start: 08-11-2023 End: 08-11-2023 Emergency department patient visit Jessi Avina MD Work Phone: [facility] Emergency Medicine Comment on above: Abdominal pain (Pt h ad abd sx 1 week ago and states she is now having sharp pains near the site with lots of swelling and some redness. Pt had sx here. ) Start: 08-09-2023 ambulatory Iona Hidalgo RN [facility] Line Comment on above: Post-op Symptoms Start: 08-09-2023 End: 08-09-2023 Emergency department patient visit DO Kim Gomes Work Phone: [facility]-Emergency Room Work Phone: Start: 08-04-2023 E.D. Visit Francisco Javiercynthiafede Yosvany LONG [facility] Social Work Comment on above: Trauma/complex Medic al Situation Start: 08-04-2023 End: 08-08-2023 Evaluation and management of inpatient STARR HOOKS Facility:[facility] Start: 08-04-2023 End: 08-04-2023 ambulatory UNKNOWN PROVIDER Facility:[facility] Start: 08-03-2023 End: 08-03-2023 Emergency department patient visit DO Kim Gomes Work Phone: [facility]-Emergency Room Work Phone: Start: 06-20-2023 End: 06-20-2023 ambulatory ROCAEL MACK Facility:[facility] Start: 05-23-2023 End: 05-23-2023 ambulatory ROCAEL MACK Facility:[facility] Start: 05-18-2023 ambulatory Edi Ishmael Facility:[facility] Start: 08-03-2022 End: 08-11-2022 Pre-admission assessment Dunia Cristina [facility] Start: 07-20-2022 End: 07-20-2022 Patient encounter procedure Dunia Cristina [facility] Start: 07-19-2022 End: 07-19-2022 Lab Drop off Dunia Cristina [facility] Start: 07-09-2022 End: 07-12-2022 Evaluation and management of inpatient MD Brionna See Work Phone: [facility] [place] [address] Work Phone: Start: 07-09-2022 End: 07-10-[address] BRIONNA SEE . Facility:[facility] Start: 04-11-2022 End: 04-11-2022 Emergency department patient visit Nevaeh Leahy [facility] Start: 03-23-2022 End: 03-23-2022 Emergency department patient visit Dino Mccollum [facility] Start: 02-28-2022 End: 02-28-2022 ambulatory Jack Khan Other [facility] Other Start: 02-28-2022 FQ visit new patient Jack Khan [facility] Start: 02-24-2022 End: 02-24-2022 ambulatory [...] Start: 04-27-2024 Viral nucleic acid assay Rodolfo Anthony MD Work Phone: Start: 04-25-2024 Urnls dip [...] DO Kim Slack Work Phone: Sigmoid colectomy [facility] Plan of Treatment Date Care Activity Detail Author Start: 2053 Shingles (RZV) Vacci ne (1 of 2) Shingles (RZV) Vaccine ([facility] 2) [facility] Start: 02-13-2026 Tetanus vaccination Tetanus (T d or Tdap) [facility] Start: 07-22-2024 End: 07-22-2024 Patient encounter procedure 07/22/2024 1:30 PM EDT Routine [facility] [address] [place] [phone] Iveth Pemberton, DO [address] [place] [address] [facility] Start: 07-22-2024 End: 07-22-2024 Professional / ancillary services management 07/22/2024 12:30 PM EDT Ancillary Procedure [facility] [address] [place] [phone] [facility] Start: 07-08-2024 End: 07-08-2024 Patient encounter procedure 07/08/2024 1:30 PM EDT Routine [facility] [address] [place] [phone] Iveth Pemberton, DO [address] [place] [address] [facility] Start: 06-24-2024 End: 06-24-2024 [facility] Comment on above: 29 weeks gestation o f Start: 06-19-2024 [facility] Start: 06-19-2024 Hospital admission [facility] Start: 06-10-2024 End: 06-10-2024 Patient encounter procedure 06/10/2024 1:15 PM EST Routine [facility] [address] [place] [phone] Iveth Pemberton, DO [address] [place] [address] [facility] Start: 06-10-2024 End: 06-10-2024 Professional / ancillary services management 06/10/2024 12:30 PM EST Ancillary Procedure [facility] [address] [place] [address] [facility] Start: 05-23-2024 End: 05-23-2024 Patient encounter procedure 05/23/2024 10:30 AM EST Routine [facility] [address] [place] [address] Iveth Pemberton, DO [address] [place] [address] [facility] Start: 05-23-2024 End: 05-23-2024 Professional / ancillary services management 05/23/2024 8:00 AM EST Ancillary Procedure [facility] [address] [place] [address] [facility] Start: 04-25-2024 End: 04-25-2024 Patient encounter procedure 04/25/2024 11:00 AM EST Routine [facility] [address] [place] [address] Iveth Pemberton, DO [address] [place] [address] [facility] Start: 04-25-2024 End: 04-25-2024 Professional / ancillary services management 04/25/2024 10:15 AM EST Ancillary Procedure [facility] [address] [place] [phone] [facility] Start: 03-28-2024 End: 03-28-2024 Patient encounter procedure [facility] Comment on above: 16 weeks gestation o f Start: 02-29-2024 End: 02-29-2024 ambulatory 02/29/2024 10:30 AM EST Initial [facility] [address] [place] [phone] Iveth Pemberton, DO [address] [place] [address] [facility] Start: 01-29-2024 End: 01-29-2024 Professional / ancillary services management 01/29/2024 8:45 AM EDT Ancillary Procedure [facility] [address] [place] [address] [facility] Start: 01-24-2024 End: 01-23-2025 Bacteria identified in Urine by Culture Urine culture Microbiology Routine Encounter for supervision of normal first in first trimester Expected: 01/24/2024 (Approximate), Expires: 01/23/2025 [facility] Comment on above: Expected: 01/24/2024 (Approximate), Expires: 01/23/2025 Start: 01-24-2024 End: 01-23-2025 Blood type and Indirect antibody screen panel - Blood Type and screen Lab Routine Encounter for supervision of normal first in first trimester Expected: 01/24/2024 (Approximate), Expires: 01/23/2025 [facility] Comment on above: Expected: 01/24/2024 (Approximate), Expires: 01/23/2025 Start: 01-24-2024 End: 01-23-2025 CBC W Auto Differential panel - Blood CBC and differential Lab Routine Encounter for supervision of normal first in first trimester Expected: 01/24/2024 (Approximate), Expires: 01/23/2025 [facility] Comment on above: Expected: 01/24/2024 (Approximate), Expires: 01/23/2025 Start: 01-24-2024 End: 01-23-2025 Drugs of abuse panel - Urine by Screen method Rapid drug screen, urine Lab Routine Encounter for supervision of normal first in first trimester Encounter for drug screening Expected: 01/24/2024 (Approximate), Expires: 01/23/2025 [facility] Comment on above: Expected: 01/24/2024 (Approximate), Expires: 01/23/2025 Start: 01-24-2024 End: 01-23-2025 Hepatitis B virus surface Ag [Presence] in Serum or Plasma by Immunoassay Hepatitis B surface antigen Lab Routine Encounter for supervision of normal first in first trimester Expected: 01/24/2024 (Approximate), Expires: 01/23/2025 [facility] Comment on above: Expected: 01/24/2024 (Approximate), Expires: 01/23/2025 Start: 01-24-2024 End: 01-23-2025 Hepatitis C virus Ab [Presence] in Serum or Plasma by Immunoassay Hepatitis C antibody Lab Routine Encounter for supervision of normal first in first trimester Expected: 01/24/2024 (Approximate), Expires: 01/23/2025 [facility]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 04/10/2019 Document Reviewed: 08/22/2018 [employer] Patient Education 2020 [employer]. Follow Up Care 04/11/2022 11:59:16 With:Rodolfo SOSA Address: [address] [place] [phone] Business (1) When:04/14/2022 12:28:41 Comments:Follow-up with Dr. Sosa for further evaluation of your hemorrhoids. With:BRIONNA SEE Address: [address] [place] [phone] Business (1) When:04/14/2022 12:28:33 Comments:Follow-up with your primary care provider in 3 to 5 days. If symptoms worsen, do not improve, or new symptoms arise please report back to emergency department for further evaluation. [facility]12-08-2022 Evaluation + Plan noteExtracted [...] PCR Influenza A&B Ag Rapid COVID Antigen ([facility]) Rapid Strep w/rfx [facility]12-08-2022 Hospital Discharge instructions Patient Education 03/23/2022 02:03:19 Upper Respiratory Infection, Adult, Cdiy-eh-Xapo Upper Respiratory Infection, Adult An upper respiratory [...] and other clear broths. General instructions Take rxzo-ymp-onauerh and prescription medicines only as told by [...] not have soap and water, use hand flag signaler. Avoid touching your mouth, face, eyes, or [...] get better within 7 10 days. Take cmjo-tje-szssjap and prescription medicines only as told by your doctor. This information is not intended to replace advice given to you by your health care provider. Make sure you discuss any questions you have with your health care provider. Document Released: 09/18/2008 Document Revised: 04/10/2019 Document Reviewed: 11/23/2017 [employer] Patient Education 2020 [employer]. Follow Up Care 03/23/2022 01:03:44 With:BRIONNA SEE Address: [address] [place] [phone] Business (1) When:03/26/2022 Comments:You can take the cough medication every 6 hours as needed for cough. Use Motrin, Tylenol every 6 hours as needed for pain. Please follow-up with your primary care doctor next 2 to 3 days. Please return to the ED for any new or worsening symptoms. [facility]11-15-2022 Evaluation note* Encounter Date [...] and elevate to decrease pain and swelling. [facility] Other 11-11-2022 NotePROCEDURE: XR HAND RT MIN [...] Electronically authenticated by: SILVANA AVERY Date: 2022-02-24 12:40[facility]11-11-2022 NotePROCEDURE: XR HAND RT MIN 3V, [...] Electronically authenticated by: SILVANA AVERY Date: 2022-02-24 12:40[facility]05-27-2022 NoteEEG Procedure Date:09/09/2021 CLINICAL HISTORY: This [...] evidence of epileptiform activity. Please correlate clinically.[facility] Future Appointments Appointment Date:07/21/2022 02:30:00 PM Scheduled Provider: Location[facility] Appointment Type:US Abdominal/Pelvis (FT) Diagnostic Tests Pending * Chlamydia/Gonococcus, ANUP 07/19/22 Future Scheduled Tests Radiology* US Pelvis Non-OB Complete 07/21/22 * US Transvaginal Non-OB 07/21/22 [facility] Future Appointments Appointment Date:07/21/2022 02:30:00 PM Scheduled Provider: Location[facility] Appointment Type:US Abdominal/Pelvis (FT) Diagnostic Tests Pending * DHEAS 07/20/22 * FSH and LH 07/20/22 * Insulin Level Total 07/20/22 * Testosterone Level Total 07/20/22 Future Scheduled Tests Radiology* US Pelvis Non-OB Complete 07/21/22 * US Transvaginal Non-OB 07/21/22 [facility] Future Appointments Appointment Date:12/24/2023 02:40:00 PM Scheduled Provider:ALLI MACK CNP Location:[facility] Appointment Type: Open [facility]* Diagnosis Onset Date Resolution Status Major depressive disorder, recurrent, moderate acute Suicidal ideation acute [facility] Work Phone: [employer] noteNo assessment information available [facility] Work Phone: Evaluation note* Diagnosis Generalized [...] Description Date Medical History right hand injury [facility] Other Hospital course Narrative No data available for this section [facility] Additional Instructions Regular diet No [facility] Work [facility]: Hospital Discharge instructions No data available for this section [facility] No data available for this section [facility] Summary Purpose Family History [...] December 03, 2023 End: December 03, 2023 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 Relationship Specialty Start Date End Date Brionna See MD [address] [place] [address] PCP - General Family Medicine 09/13/23 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 Relationship 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 Start Date End Date Brionna See MD [address] [place] [address] PCP - General Family Medicine 09/13/23 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 Relationship 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 Start Date End Date Brionna See MD [address] [place] [address] PCP - General Family Medicine 09/13/23 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 Relationship 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 Start Date End Date Brionna See MD [address] [facility] [place] [address] PCP - General Family Medicine 09/13/23 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 Relationship 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 Start Date End Date Brionna See MD [address] [place] [address] PCP - General Family Medicine 09/13/23 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 Relationship Specialty Start Date End Date Brionna See MD [address] [place] [address] PCP - General Family Medicine 09/13/23 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 Relationship 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 Start Date End Date Brionna See MD [address] [place] [address] PCP - General Family Medicine 09/13/23 INFORMATION SOURCE (unrecogn ized section and content) DATE CREATED AUTHOR 07/14/2022 [facility] [place] [facility] DATE CREATED AUTHOR AUTHOR'S ORGANIZ ATION 09/06/2023 [facility] DATE CREATED AUTHOR AUTHOR'S ORGANIZ ATION 09/30/2023 [facility] DATE CREATED AUTHOR AUTHOR'S ORGANIZ ATION 12/25/2023 [facility] DATE CREATED AUTHOR AUTHOR'S ORGANIZ ATION 06/22/2024 [facility] DATE CREATED AUTHOR AUTHOR'S ORGANIZ ATION 06/27/2024 [facility] DATE CREATED AUTHOR AUTHOR'S ORGANIZ ATION 07/09/2024 [facility] EPIC Goals (unrecognized section [...] Push, STAT, 1 dose, On Sun08/10/23 at [phone] (Given - Provid er: Sanju Richards) FOR [...] BE BASED ON THE PRIMARY CLINICAL RECORDS. [employer] provides no warranty or guarantee of the accuracy or completeness of information in this document.
[2024-07-21 04:49] VITALS: BP 122/74; PULSE 82
[2024-07-21 05:19] VITALS: BP 108/65; PULSE 84
[2024-07-21 05:50] VITALS: BP 93/55; PULSE 83
[2024-07-21 06:08] LABS: Basophils Percent Auto 0.3 % (0.2-2.0); Eosinophils Absolute Auto 0.1 10^3/uL (0.0-0.7); Eosinophils Percent Auto 0.7 % (0.9-7.0); Hematocrit 28.7 % (36.0-48.0); Hemoglobin 10.2 g/dL (12.0-16.0); Immature Granulocytes Abs Auto 0.04 10^3/uL (0.00-0.03); Immature Granulocytes Pct Auto 0.3 % (0.0-0.5); Lymphocytes Absolute Auto 3.7 10^3/uL (1.2-3.8); Lymphocytes Percent Auto 30.3 % (20.5-60.0); Mean Corpuscular HGB Conc 35.5 g/dL (29.9-35.2); Mean Corpuscular Hemoglobin 31.6 pg (26.7-34.0); Mean Corpuscular Volume 88.9 fL (81.0-99.0); Monocytes Percent Auto 8.1 % (1.7-12.0); Neutrophils Absolute Auto 7.3 10^3/uL (1.4-6.5); Neutrophils Percent Auto 60.3 % (43.0-75.0); Platelet Count 270 10^3/uL (150-450); Red Blood Count 3.23 10^6/uL (4.20-5.40); Red Cell Distribution Width 12.6 % (11.0-15.0); White Blood Count 12.2 10^3/uL (4.0-11.0)
[2024-07-21 06:15] LABS: Amylase 59 U/L (25-115); Anion Gap 11.3; Carbon Dioxide 23.6 mmol/L (21.0-32.0); Chloride 106 mmol/L (98-107); Potassium 3.9 mmol/L (3.5-5.1); Sodium 137 mmol/L (136-145)
[2024-07-21 06:20] LABS: Alanine Aminotransferase 13 U/L (14-59); Aspartate Amino Transferase 17 U/L (15-37); Estimated GFR (African America >60 (>=60 mL/min/1.73m^2); Estimated GFR (Non-African Ame >60 (>=60 mL/min/1.73m^2)
--- NOTE | 2024-07-21 07:30 | US_ITS ---
[address] [address] Patient Name: LENY MALIK MRN: [id number] date: 2005 Sex: F Assigned Patient Location: [facility] Current Patient Location: [facility] Accession/Order Number: [id number] Exam Date: 07/21/2024 08:39 Report Date: 07/21/2024 08:41 At the request of: PAU JENSEN DO Procedure: US OB cervical length Limited obstetrical ultrasound HISTORY: Cramping for 3 days. Fetus in cephalic presentation with longitudinal lie. Amniotic fluid index 6.3 cm suggesting oligohydramnios. Largest fluid pocket measures 2.1 cm. The heart rate is 153 bpm. The cervical length is 3.7 cm. The cervical os is closed. US/US OB cervical length IMPRESSION: Amniotic fluid index 6.3 cm suggesting oligohydramnios. Cervical length is 3.7 cm. Impression dictated by: Nba Borrego M.D.07/21/2024 8:41 AM Dictation Location: [employer] Electronically authenticated by: [id number] Y Date: 07/21/2024 08:41
--- NOTE | 2024-07-21 08:09 | US_ITS ---
[address] [address] Patient Name: LENY MALIK MRN: [id number] date: 2005 Sex: F Assigned Patient Location: [facility] Current Patient Location: [facility] Accession/Order Number: [id number] Exam Date: 07/21/2024 08:39 Report Date: 07/21/2024 08:41 At the request of: PAU JENSEN DO Procedure: US OB cervical length Limited obstetrical ultrasound HISTORY: Cramping for 3 days. Fetus in cephalic presentation with longitudinal lie. Amniotic fluid index 6.3 cm suggesting oligohydramnios. Largest fluid pocket measures 2.1 cm. The heart rate is 153 bpm. The cervical length is 3.7 cm. The cervical os is closed. US/US OB amniotic fluid vol IMPRESSION: Amniotic fluid index 6.3 cm suggesting oligohydramnios. Cervical length is 3.7 cm. Impression dictated by: Nba Borrego M.D.07/21/2024 8:41 AM Dictation Location: [employer] Electronically authenticated by: [id number] Y Date: 07/21/2024 08:41
--- NOTE | 2024-07-21 08:44 | US_ITS ---
[place] [id number] Patient Name: LENY MALIK MRN: [id number] date: 2005 Sex: F Assigned Patient Location: [facility] Current Patient Location: [facility] Accession/Order Number: [id number] Exam Date: 07/21/2024 09:55 Report Date: 07/21/2024 09:57 At the request of: PAU JENSEN DO Procedure: US OB BPP w non-stress Obstetrical ultrasound biophysical profile HISTORY: Decreased amniotic fluid There is adequate breathing movement, gross body movement, tone and amniotic fluid volume. Total score 8 out of 8. The amniotic fluid index is 7.6 cm below the 5th percentile. The heart rate 152 bpm. US/US OB BPP w non-stress IMPRESSION: Adequate biophysical profile. Amniotic fluid index 7.6 cm suggesting oligohydramnios. Impression dictated by: Nba Borrego M.D.07/21/2024 9:57 AM Dictation Location: [employer] Electronically authenticated by: [id number] Y Date: 07/21/2024 09:57
== END 2024-07-21 10:15 | disposition home or self-care (01) ==
PROVIDERS: Admitting Provider Obstetrics & Gynecology; Visit Provider Obstetrics & Gynecology
DX: O26.893 Other specified pregnancy related conditions, third trimester (principal); R10.9 Unspecified abdominal pain; O99.334 Smoking (tobacco) complicating childbirth; F17.200 Nicotine dependence, unspecified, uncomplicated; O23.43 Unspecified infection of urinary tract in pregnancy, third trimester; R55 Syncope and collapse; N39.0 Urinary tract infection, site not specified; R42 Dizziness and giddiness; Z3A.33 33 weeks gestation of pregnancy
CPT/HCPCS: 36415; 59025; 76815; 76817; 76818; 80051; 80053; 81001; 82150; 82565; 83690; 84450; 84460; 84520; 85025; 87086; 93005; 99284; G0378; G0379